=== PATIENT | female | born 1965 | race African-American/Black ===

== ENCOUNTER 2024-07-23 08:44 | Emergency (ER) | payer MEDICAID, SELFPAY ==
--- NOTE | 2024-07-23 09:09 | ED.NAVMDI1 ---
HPI - Nausea/Vomiting/Diarrhea General Chief complaint: Nausea/Vomiting/Diarrhea Stated complaint: VOMITTING FEVER Time Seen by Provider: 07/23/24 08:54 History of Present Illness HPI Narrative: Day before yesterday, the patient developed nausea, vomiting and diarrhea. She said that she is unable to keep anything down. She complains of generalized achiness, mild headache and feels hot - she is afebrile here. Her significant other has similar symptoms of similar onset. Related Data Home Medications ?Medication ?Instructions ?Recorded ?Confirmed albuterol sulfate 90 mcg/actuation 2 puff inhalation Q4H PRN 07/23/24 07/23/24 aerosol inhaler (Ventolin HFA) shortness of breath or wheezing amitriptyline 50 mg tablet 50 mg PO DAILY 07/23/24 07/23/24 atenolol 50 mg tablet 50 mg PO Q24H 07/23/24 07/23/24 clonidine HCl 0.1 mg tablet 0.1 mg PO BID 07/23/24 07/23/24 clopidogrel 75 mg tablet 75 mg PO DAILY 07/23/24 07/23/24 cyclobenzaprine 10 mg tablet 10 mg PO Q12H PRN muscle pain 07/23/24 07/23/24 doxepin 25 mg capsule 25 mg PO DAILY 07/23/24 07/23/24 ergocalciferol (vitamin D2) 1,250 1,250 mcg PO DAILY 07/23/24 07/23/24 mcg (50,000 unit) capsule ferrous sulfate 325 mg (65 mg 325 mg PO DAILY 07/23/24 07/23/24 iron) tablet gabapentin 300 mg capsule 300 mg PO TID 07/23/24 07/23/24 hydroxyzine pamoate 50 mg capsule 50 mg PO BEDTIME 07/23/24 07/23/24 insulin glargine 100 unit/mL (3 10 unit subcut BEDTIME 07/23/24 07/23/24 mL) subcutaneous pen (Lantus Solostar U-100 Insulin) insulin lispro 100 unit/mL 1 sliding scale dose subcut BID 07/23/24 07/23/24 subcutaneous pen (Humalog KwikPen (U-100) Insulin) lorazepam 0.5 mg tablet 0.5 mg PO DAILY 07/23/24 07/23/24 losartan 100 mg tablet 100 mg PO DAILY 07/23/24 07/23/24 pantoprazole 20 mg tablet,delayed 20 mg PO DAILY 07/23/24 07/23/24 release Previous Rx's ?Medication ?Instructions ?Recorded ondansetron 4 mg disintegrating 4 mg PO Q6H PRN nausea and 07/23/24 tablet vomiting #20 tabs Allergies Allergy/AdvReac Type Severity Reaction Status Date / Time NSAIDS (Non-Steroidal Allergy Severe Hives Verified 07/23/24 08:51 Anti-Inflamma tramadol Allergy Hives Verified 07/23/24 08:51 PFSH PFSH Social History Little interest or pleasure in doing things: not at all Feeling down, depressed, or hopeless: not at all Exam Narrative Exam Narrative: Nurses notes and vital signs reviewed and patient is not hypoxic. afebrile General: Well-appearing and in no apparent distress. Skin: Warm, dry, no pallor noted. Head: Normocephalic, atraumatic. Neck: Supple, non-tender. Eye: Pupils are equal, round and EOMI. No scleral icterus. Ears, Nose, Mouth, and Throat: Oral mucosa is dry Cardiovascular: Tachycardia. Respiratory: No accessory muscle use or respiratory distress. Lungs are clear to auscultation, no wheezing, rales or rhonchi Chest Wall: no tenderness Back: No CVA tenderness Musculoskeletal: normal ROM GI: Abdomen is soft, non-distended. Normal bowel sounds. No tenderness to palpation. No rebound, guarding, or rigidity noted. Neurological: A&O x4. No cranial nerve dysfunction observed. No truncal ataxia. Moves all extremities. Sensation intact. Psychiatric: Cooperative and interactive. Normal mood and affect. Constitutional Vital Signs, click to edit/add: Last Vital Signs Temp 99 F 07/23/24 09:16 Pulse 127 H 07/23/24 09:16 Resp 20 07/23/24 09:16 BP 143/81 H 07/23/24 09:16 Pulse Ox 100 07/23/24 09:16 O2 Del Method Room Air 07/23/24 09:16 Course Vital Signs Vital signs: Vital Signs Temperature 99 F 07/23/24 09:16 Pulse Rate 127 H 07/23/24 09:16 Respiratory Rate 20 07/23/24 09:16 Blood Pressure 143/81 H 07/23/24 09:16 Pulse Oximetry 100 07/23/24 09:16 Oxygen Delivery Method Room Air 07/23/24 09:16 Temperature 99 F 07/23/24 09:16 Pulse Rate 127 H 07/23/24 09:16 Respiratory Rate 20 07/23/24 09:16 Blood Pressure 143/81 H 07/23/24 09:16 Pulse Oximetry 100 07/23/24 09:16 Oxygen Delivery Method Room Air 07/23/24 09:16 MDM - Nausea/Vomiting/Diarrhea MDM Narrative Medical decision making narrative: The patient presents with nausea, vomiting and diarrhea with her significant other experiencing similar symptoms. She is tachycardic. Peripheral IV established and blood drawn and sent for testing. She was given a liter of normal saline IV fluid and IV Zofran. Although her presentation is consistent with gastroenteritis, which is circulating the population currently, since we establish peripheral IV access, blood was drawn and sent for testing. The patient felt better after ED treatment. Her labs were fairly unremarkable with a Glc 139 being most notable finding. She was able to tolerate a popsicle orally and was given Tylenol for headache. She continued to improve and was discharged home with a prescription for Zofran ODT tabs and recommendation maintain a clear liquid diet until her nausea and vomiting resolves. Lab Data Attestation: I reviewed the patient's lab results. Labs: Lab Results 07/23/24 Range/Units 09:10 WBC 8.5 (4.0-11.0) 10^3/uL RBC 4.64 (4.20-5.40) 10^6/uL Hgb 14.1 (12.0-16.0) g/dL Hct 42.9 (36.0-48.0) % MCV 92.5 (81.0-99.0) fL MCH 30.4 (26.7-34.0) pg MCHC 32.9 (29.9-35.2) g/dL RDW 14.5 (11.0-15.0) % Plt Count 340 (150-450) 10^3/uL MPV 10.1 (9.5-13.5) fL Neut % (Auto) 66.6 (43.0-75.0) % Lymph % (Auto) 21.9 (20.5-60.0) % [place] % (Auto) 9.0 (1.7-12.0) % Eos % (Auto) 2.1 (0.9-7.0) % Baso % (Auto) 0.2 (0.2-2.0) % Neut # (Auto) 5.6 (1.4-6.5) 10^3/uL Lymph # (Auto) 1.9 (1.2-3.8) 10^3/uL [place] # (Auto) 0.8 (0.3-0.8) 10^3/uL Eos # (Auto) 0.2 (0.0-0.7) 10^3/uL Baso # (Auto) 0.0 (0.0-0.1) 10^3/uL Abs Immat Gran (auto) 0.02 (0.00-0.03) 10^3/uL Imm/Tot Granulo (auto) 0.2 (0.0-0.5) % Sodium 140 (136-145) mmol/L Potassium 3.5 (3.5-5.1) mmol/L Chloride 105 (98-107) mmol/L Carbon Dioxide 26.5 (21.0-32.0) mmol/L Anion Gap 12.0 BUN 16.0 (7.0-18.0) mg/dL Creatinine 1.11 H (0.55-1.02) mg/dL Est GFR ( Amer) >60 (>=60 mL/min/1.73m^2) Est GFR (Non-Af Amer) 50 L (>=60 mL/min/1.73m^2) BUN/Creatinine Ratio 14.4 Glucose 139 H (74-106) mg/dL Calcium 8.1 L (8.5-10.1) mg/dL Total Bilirubin 0.5 (0.2-1.0) mg/dL AST 35 (15-37) U/L ALT 43 (14-59) U/L Alkaline Phosphatase 93 (46-116) U/L Total Protein 8.0 (6.4-8.2) g/dL Albumin 3.9 (3.4-5.0) g/dL Globulin 4.1 g/dL Albumin/Globulin Ratio 1.0 Lipase 24.0 (16.0-77.0) U/L Discharge Plan Discharge Chief Complaint: Nausea/Vomiting/Diarrhea Clinical Impression: Gastroenteritis Patient Disposition: Home, Self-Care Time of Disposition Decision: 09:59 Prescriptions / Home Meds: New ondansetron 4 mg tablet,disintegrating 4 mg PO Q6H PRN (Reason: nausea and vomiting) Qty: 20 0RF No Action albuterol sulfate [Ventolin HFA] 90 mcg/actuation HFA aerosol inhaler 2 puff INHALATION Q4H PRN (Reason: shortness of breath or wheezing) atenolol 50 mg tablet 50 mg PO Q24H amitriptyline 50 mg tablet 50 mg PO DAILY clonidine HCl 0.1 mg tablet 0.1 mg PO BID clopidogrel 75 mg tablet 75 mg PO DAILY cyclobenzaprine 10 mg tablet 10 mg PO Q12H PRN (Reason: muscle pain) doxepin 25 mg capsule 25 mg PO DAILY ergocalciferol (vitamin D2) 1,250 mcg (50,000 unit) capsule 1,250 mcg PO DAILY ferrous sulfate 325 mg (65 mg iron) tablet 325 mg PO DAILY gabapentin 300 mg capsule 300 mg PO TID hydroxyzine pamoate 50 mg capsule 50 mg PO BEDTIME insulin glargine [Lantus Solostar U-100 Insulin] 100 unit/mL (3 mL) insulin pen 10 unit SUBCUT BEDTIME insulin lispro [Humalog KwikPen Insulin] 100 unit/mL insulin pen 1 sliding scale dose SUBCUT BID lorazepam 0.5 mg tablet 0.5 mg PO DAILY losartan 100 mg tablet 100 mg PO DAILY pantoprazole 20 mg tablet,delayed release (DR/EC) 20 mg PO DAILY Print Language: Q[place] Instructions: Gastroenteritis (ED) Referrals: [facility] [Primary Care Provider] - 1 week
[2024-07-23 09:16] VITALS: BP 143/81; PULSE 127; TEMP 37.2; O2SAT 100; BMI 34.1
[2024-07-23 09:18] LABS: Basophils Percent Auto 0.2 % (0.2-2.0); Eosinophils Absolute Auto 0.2 10^3/uL (0.0-0.7); Eosinophils Percent Auto 2.1 % (0.9-7.0); Hematocrit 42.9 % (36.0-48.0); Hemoglobin 14.1 g/dL (12.0-16.0); Immature Granulocytes Abs Auto 0.02 10^3/uL (0.00-0.03); Immature Granulocytes Pct Auto 0.2 % (0.0-0.5); Lymphocytes Absolute Auto 1.9 10^3/uL (1.2-3.8); Lymphocytes Percent Auto 21.9 % (20.5-60.0); Mean Corpuscular HGB Conc 32.9 g/dL (29.9-35.2); Mean Corpuscular Hemoglobin 30.4 pg (26.7-34.0); Mean Corpuscular Volume 92.5 fL (81.0-99.0); Mean Platelet Volume 10.1 fL (9.5-13.5); Monocytes Absolute Auto 0.8 10^3/uL (0.3-0.8); Neutrophils Absolute Auto 5.6 10^3/uL (1.4-6.5); Neutrophils Percent Auto 66.6 % (43.0-75.0); Platelet Count 340 10^3/uL (150-450); Red Blood Count 4.64 10^6/uL (4.20-5.40); Red Cell Distribution Width 14.5 % (11.0-15.0); White Blood Count 8.5 10^3/uL (4.0-11.0)
[2024-07-23] MEDS: 0.9 % SODIUM CHLORIDE 1,000 ML 999 ML IV (09:23)
[2024-07-23] MEDS: ONDANSETRON PF 4 MG/2 ML VIAL IV (09:23)
[2024-07-23 09:36] LABS: Alanine Aminotransferase 43 U/L (14-59); Albumin Level 3.9 g/dL (3.4-5.0); Alkaline Phosphatase 93 U/L (46-116); Aspartate Amino Transferase 35 U/L (15-37); BUN Creatinine Ratio 14.4; Bilirubin Total 0.5 mg/dL (0.2-1.0); Calcium 8.1 mg/dL (8.5-10.1); Carbon Dioxide 26.5 mmol/L (21.0-32.0); Chloride 105 mmol/L (98-107); Estimated GFR (African America >60 (>=60 mL/min/1.73m^2); Estimated GFR (Non-African Ame 50 (>=60 mL/min/1.73m^2); Globulin 4.1 g/dL; Glucose 139 mg/dL (74-106); Potassium 3.5 mmol/L (3.5-5.1); Sodium 140 mmol/L (136-145)
[2024-07-23] MEDS: ACETAMINOPHEN 500 MG TABLET 1000 MG PO (10:05)
[2024-07-23 10:17] VITALS: BP 110/70; PULSE 99; O2SAT 99
== END 2024-07-23 10:19 | disposition home or self-care (01) ==
PROVIDERS: Emergency Provider Emergency Medicine
DX: K52.9 Noninfective gastroenteritis and colitis, unspecified (principal); R51.9 Headache, unspecified
CPT/HCPCS: 36415; 80053; 83690; 85025; 96361; 96374; 99284; J2405

== ENCOUNTER 2024-07-29 06:43 | Emergency (ER) | payer MEDICAID, SELFPAY ==
[2024-07-29] VITALS (11 sets, daily range): BP systolic 136–177; BP diastolic 73–94; PULSE 92; TEMP 36.9; O2SAT 99–100; BMI 34.3
--- OUTSIDE RECORDS SUMMARY | 2024-07-29 06:49 | XMS_ITS | CCD ---
Author Organization [facility] Care Team Providers Care Maintenance Clerk Name Role Phone SELF, REFERRED Unavailable Unavailable SELF, REFERRED Unavailable Unavailable ALTOROK, NEZAM I Unavailable Unavailable ALTOROK, NEZAM I Unavailable Unavailable [facility], Services Primary Care Provider Kassandra Klein Attending Provider [phone] NO FAMILY, PHYSICIAN Primary Care Provider Unava ilable Kassandra Klein Primary Care Provider XOCHITL LIANG Admitting Unavailable AZUL, XOCHITL Consulting Unavailable KASSANDRA KLEIN Referring Unavailable HIGHLANDER, XOCHITL Attending Unavailable HIGHLANDER, XOCHITL Attending Unavailable HIGHLANDER, XOCHITL Admitting Unavailable BOBSIKASSANDRA Nunez Primary Care Unavailable DR LOVE MENDENHALL Consulting Unavailable AZUL, XOCHITL Consulting Unavailable JULI WEISS Consulting Unavailable LAUREANO GALEANA Consulting Unavailable SUZY NOONAN Consulting Unavailable AZUL, XOCHITL Admitting Unavailable HIGHLANDER, XOCHITL Attending Unavailable HIGHLANDER, XOCHITL Attending Unavailable HIGHLANDER, XOCHITL Admitting Unavailable CALE SHELLEY Consulting Unavailable SPASIC, KASSANDRA Primary Care Unavailable DO Dwight Irwin Emergency Provider [phone] [facility] Primary Care Provider Phillip ASSISTANT PROFESSOR NURSE EDUCATION-C Kassandra Spring Attending Provider [phone] [facility] Primary Care Prov ider ELBERT Figueroa Emergency Provider [facility] Primary Care Provider Phillip ASSISTANT PROFESSOR NURSE EDUCATION-C Kassandra Spring Attending Provider Chintan Jackman Primary Care Provider [phone] Spasic, Kassandra E Unavailable [facility] Services Primary Care Provider Spasic, ASSISTANT PROFESSOR NURSE EDUCATION-C Kassandra E Attending Provider [facility] Primary Care Provider Spasic, ASSISTANT PROFESSOR NURSE EDUCATION-C Kassandra E Attending Provider MD Huey Bliss Attending Provider [facility] Primary Care Provider [phone] Spasic, ASSISTANT PROFESSOR NURSE EDUCATION-C Kassandra E Attending Provider [facility] Primary Care Prov ider Spasic, ASSISTANT PROFESSOR NURSE EDUCATION-C Kassandra E Attending Provider Spasic, ASSISTANT PROFESSOR NURSE EDUCATION-C Kassandra E Attending Provider [facility] Primary Care Prov ider KEITH Umana Emergency Provider Spasic, ASSISTANT PROFESSOR NURSE EDUCATION-C Kassandra E Primary Care Provider MD Rishi Abel Jr Emergency Provider Anders Umana Admitting Unavailable Anders Umana Attending Unavailable Spasic, Kassandra E Primary Care Unavailable Rishi Abel Jr Admitting Unavailable Rishi Abel Jr Attending Unavailable Spasic, Kassandra E Primary Care Unavailable Spasic, Kassandra E Attending Unavailable Spasic, Kassandra E Admitting [facility]available [facility] Primary Care Unavaila ble Spasic, Kassandra E Attending Unavailable Spasic, Kassandra E Admitting Unavailable [facility] Primary Care Unavaila ble Spasic, Kassandra E Admitting Unavailable [facility] Primary Care U navailable Spasic, Kassandra E Attending Unavailable Spasic, Kassandra E Admitting Unavailable [facility] Primary Care U navailable Spasic, Kassandra E Attending Unavailable Spasic, Kassandra E Admitting Unavailable [facility] Primary Care U navailable Spasic, Kassandra E Attending Unavailable CHINTAN JACKMAN Primary Care Unavailable GENERIC PROVIDER, NO ASSIGNED PCP Primary Care Unavailable PETER SUE Attending Unavailable Spasic ASSISTANT PROFESSOR NURSE EDUCATIONKassandra Unavailable Spasi Kassandra KONG Primary Care Provider MAYRA PAM Referring Unavailable AL TURK, ISSAM A Primary Care Unavailable PAM WANG Attending Unavailable ALANYEISON BAILON Referring Unavailable AL TURK, ISSAM A Primary Care Unavailable AL TURK, ISSAM A Primary Care Unavailable Generic Provider MD, No Assigned Pcp Primary Car e Provider Unavailable Unavailable Primary Care Provider Unavailmario e TONY SINCLAIR Referring Unavailable Unavailable Unavailable Unavailable Allergies Allergy Classification Reported Allergen(s) Allergy Type Date of Onset Reaction(s) Facility (18 sources) ibuprofen; Translations: [IBUPROFEN] Drug Allergy 3 [facility], [facility] Repository (2 sources) predniSONE; Translations: [PREDNISONE] Drug Allergy 5 [facility] Repository (18 sources) traMADol; Translations: [TRAMADOL] Drug Allergy 3 [facility], Seizure [facility] Repository (17 sources) Ketorolac; Translations: [ketorolac] Drug Allergy 1 [facility] (17 sources) Lisinopril; Translations: [lisinopril] Drug Allergy 1 [facility] (15 sources) NSAIDS (Non-Steroidal Anti-Inflamma; Translations: [NSAIDS (Non-Steroidal Anti-Inflamma] Allergy to substance 1 [facility] (3 sources) NSAIDs; Translations: [NSAIDS (NON-STEROIDAL ANTI-INFLAMMATO RY DRUG)] Drug allergy (disorder) 4 [facility] Repository (2 sources) predniSONE Drug Allergy [facility] Repository (2 sources) traMADol Drug Allergy [facility] Repository (16 sources) Aspirin; Translations: [aspirin] Drug Allergy 2 [facility] (3 sources) Ibuprofen Drug Allergy 3 Itching, [facility] Work Phone: (6 sources) Naproxen; Translations: [NAPROXEN] Drug Allergy 3 Itching [facility] Work Phone: (6 sources) traMADol Drug Allergy 3 Other: See Comments, Hives, Seizure, Unknown [facility] Work Phone: (1 source) Ibuprofen Drug Allergy 4 [facility] Repository (1 source) traMADol Drug Allergy 4 [facility] Repository (1 source) Non-steroidal anti-inflammato ry agent Drug Allergy 4 [facility] Work Phone: (1 source) predniSONE Drug Allergy 4 [facility] Work Phone: Medications Current Medications Medication Drug Class(es) Dates Sig (Normalized) Sig (Original) acetaminophen 325 mg oral tablet (3 sources) Start: 05-04-2024 End: 05-11-2024 take 325-650 mg by mouth every four hours as needed acetaminophen (TYLENOL) 325 mg tablet Take 1-2 tablets by mouth every 4 hours as needed for pain for up to 7 days. 30 tablet 05/04/2024 05/11/2024 Active acetaminophen 325 mg / HYDROcodone bitartrate 5 mg oral tablet (20 sources) Opioid Agonist Start: 01-29-2024 take 1 tablet by mouth every six hours Hydrocodone-Acetami nophen Active 1 TAB PO Q6H 10 3 January 29, 2024 Start: 04-20-2021 End: 05-27-2021 take 1 tablet by mouth every six hours Hydrocodone-Acetaminophen Discontinued 1 TAB PO Q6H 12 April 20, 2021 May 27, 2021 2:28pm Start: 06-07-2020 End: 08-20-2020 take 1 tablet by mouth every six hours Hydrocodone-Acetaminophen ([place]) 5-325 mg tablet Discontinued 1 TAB PO Q6H 10 July 22, 2020 August 20, 2020 12:15pm Start: 11-19-2019 End: 07-22-2020 take 1 tablet by mouth three times daily Hydrocodone-Acetaminophen Discontinued 1 TAB PO Three times daily November 19, 2019 12:00am July 22, 2020 3:33pm Start: 11-19-2019 End: 11-19-2019 Hydrocodone-Acetaminophen Di scontinued TABLET November 19, 2019 12:00am November 19, 2019 4:38pm Start: 07-16-2019 End: 10-06-2019 take 1 tablet by mouth every four to six hours Hydrocodone-Acetaminophen (Vicodin Hp) 10-300 mg Tablet Discontinued 1 TAB PO EVERY 4-6 HOURS July 16, 2019 1:00am October 06, 2019 2:43pm Start: 05-11-2019 take 1 tablet by shalini th every twelve hours as needed HYDROcodone-acetaminophen (NORCO) 5-325 mg per tablet Take 1 tablet by mouth twice daily as needed. 0 05/11/2019 Active Start: 01-07-2019 End: 07-16-2019 take 1 tablet by mouth every four to six hours Hydrocodone-Acetaminophen ([place]) 5-325 mg tablet Discontinued 1 TAB PO EVERY 4-6 HOURS 10 3 January 07, 2019 July 16, 2019 9:15am Start: 08-27-2017 End: 01-11-2018 take 1 tablet by mouth every four to six hours Hydrocodone-Acetaminophen ([place]) 5-325 mg tablet Discontinued 1 TAB PO EVERY 4-6 HOURS 14 August 27, 2017 January 11, 2018 5:04pm Start: 03-18-2017 End: 04-30-2017 Hydrocodone-Acetaminophen (N or[place]) 5-325 mg tablet Discontinued 1 TAB PO every 6 to 8 hours 7 March 18, 2017 April 30, 2017 9:11am Comment on above: Take 1 tablet by shalini th twice daily as needed. Albuterol Sulfate (20 sources) beta2-Adrenergic Agonist Start: 08-14-2019 Albuterol Sulfate (Ventolin Hfa) 90 mcg/actuation HFA aerosol inhaler Active 2 INH INHALATION every 6 to 8 hours 8 August 14, 2019 10:21am Start: 08-14-2019 Albuterol Sulf ate (Ventolin Hfa) 90 mcg/actuation HFA aerosol inhaler Active 2 INH INHALATION every 6 to 8 hours 8 August 14, 2019 1:00am Start: 07-27-2017 End: 07-16-2019 take 1 puff(s) by inhalation every six hours Albuterol Sulfate Discontinued 2 PUFF INHALATION Q6H July 27, 2017 10:15pm July 16, 2019 8:15am Start: 07-27-2017 End: 07-16-2019 take 1 puff(s) by inhalation every six hours Albuterol Sulfate Discontinued 2 PUFF INHALATION Q6H July 27, 2017 12:00am July 16, 2019 8:15am Start: 07-27-2017 End: 07-16-2019 take 1 puff(s) by inhalation every six hours Albuterol Sulfate Discontinued 2 PUFF INHALATION Q6H July 27, 2017 1:00am July 16, 2019 9:15am take 2.5 mg by inhal ation every six hours as needed albuterol (PROVENTIL) 2.5 mg /3 mL (0.083 %) nebulizer solution Inhale 2.5 mg as instructed every 6 hours as needed. Active ALBUTEROL INHALA TION Indications: Sarcoidosis Inhale as instructed. Active ALBUTEROL INHALA TION Indications: Sarcoidosis Inhale as instructed. 0 Active Comment on above: Inhale as instructed . Inhale 2.5 mg as ins tructed every 6 hours as needed. amLODIPine 10 mg oral tablet (19 sources) Dihydropyridine Calcium Channel Lilia Start: 05-11-20 End: 11-15-19 take 1 tablet by mouth once daily amLODIPine (NORVASC) 10 mg tablet Take 10 mg by mouth once daily. 1 05/11/2019 Active Comment on above: Take 10 mg by mouth once daily. amoxicillin 875 mg / clavulanate 125 mg oral tablet (1 source) Penicillin-class Antibacterial Start: 03-23-20 End: 03-30-20 24 take 1 tablet by mouth every twelve hours amoxicillin-pot clavulanate (Augmentin) 875-125 mg tablet Indications: Pneumonia due to infectious organism, unspecified laterality, unspecified part of lung Take 1 tablet by mouth every 12 hours for 7 days. 14 tablet 03/23/2024 03/30/2024 Active ARIPiprazole 10 mg oral tablet (13 sources) Atypical Antipsychotic Start: 11-15-19 take 10 mg by mouth once daily Aripiprazole Active 10 MG PO Daily November 14, 2022 12:00am Comment on above: Take 10 mg by mouth once daily. atenolol 50 mg oral tablet (20 sources) beta-Adrenergic Lilia Start: 11-15-19 take 50 mg by mouth once daily Atenolol Active 50 MG PO Daily November 14, 2022 12:00am Start: 03-18-2017 End: 11-09-2019 take 50 mg by mouth once daily Atenolol Discontinued 5 0 MG PO Daily March 18, 2017 12:00am November 09, 2019 8:21pm Comment on above: Take 50 mg by mouth once daily. azithromycin 250 mg oral tablet (15 sources) Macrolide Antimicrobial Start: 03-24-20 take 1 tablet by mouth once daily azithromycin (Zithromax) 250 mg tablet Indications: Pneumonia due to infectious organism, unspecified laterality, unspecified part of lung Take 1 tablet (250 mg) by mouth once daily. Take 1 pill once a day Do not fill before March 24, 2024. 4 tablet 03/24/2024 Active Start: 04-20-2018 End: 04-30-2018 take 2 tablets by mouth once daily, then take 1 tablet by mouth once daily Azithromycin (Zithromax Z-Reno) 250 mg Tablet Discontinued 250 MG PO Daily 6 5 April 20, 2018 12:00am April 30, 2018 2:33pm two pills first day, one pill daily for 4 days Budesonide-Formoterol (20 sources) Corticosteroid, beta2-Adrenergic Agonist Start: 11-11-2019 take 1 puff(s) by inhalation twice daily Budesonide-Formoterol Active 2 PUFF INHALATION Twice daily November 11, 2019 11:23am Start: 11-11-2019 take 1 puff(s) by in halation twice daily Budesonide-Formoterol Active 2 PUFF INHALATION Twice daily November 10, 2019 11:00pm Start: 11-11-2019 take 1 puff(s) by in halation twice daily Budesonide-Formoterol Active 2 PUFF INHALATION Twice daily November 11, 2019 12:00am Start: 07-27-2017 End: 07-16-2019 take 1 puff(s) by inhalation twice daily Budesonide-Formoterol (Symbicort) 160-4.5 mcg/actuation Hfa Aerosol Inhaler Discontinued 2 PUFF INHALATION Twice daily July 27, 2017 1:00am July 16, 2019 9:15am BUDESONIDE/FORMOTEROL FUMARA TE (SYMBICORT INHALATION) (5 sources) BUDESONIDE/FORMO TEROL FUMARATE (SYMBICORT INHALATION) Indications: Sarcoidosis Inhale as instructed. Active BUDESONIDE/FORMO TEROL FUMARATE (SYMBICORT INHALATION) Indications: Sarcoidosis Inhale as instructed. 0 Active Comment on above: Inhale as instructed . Calcium Carbonate-Vitamin D3 180-5,000 mg-unit tab (5 sources) Calcium Carbonat e-Vitamin D3 180-5,000 mg-unit tab Indications: Sarcoidosis Take by mouth. Active Calcium Carbonat e-Vitamin D3 180-5,000 mg-unit tab Indications: Sarcoidosis Take by mouth. 0 Active Comment on above: Take by mouth. cetirizine hydrochloride 10 mg oral tablet (8 sources) Histamine-1 Receptor Antagonist Start: 11-15-19 take 10 mg by mouth once daily Cetirizine Active 10 MG PO Daily November 14, 2022 12:00am cholecalciferol 2000 unt oral tablet (14 sources) Vitamin D Start: 07-16-19 take 1 tablet by mouth once daily Cholecalciferol (Vitamin D3) (Vitamin D3) 2,000 unit Tablet Active 2000 UNIT PO Daily July 16, 2019 8:16am Start: 07-16-2019 End: 11-14-2022 Cholecalciferol (Vitamin D3) (Vitamin D3) 2,000 unit Tablet Discontinued 5000 UNIT PO every week July 16, 2019 1:00am November 14, 2022 8:07am cloNIDine hydrochloride 0.1 mg oral tablet (8 sources) Central alpha-2 Adrenergic Agonist Start: 11-14-2022 take 0.1 mg by mouth once daily Clonidine Hcl Active 0.1 MG PO Daily November 14, 2022 12:00am dexamethasone 4 mg oral tablet (20 sources) Corticosteroid Start: 11-11-2019 take 4 mg by mouth once daily Dexamethasone Active 4 MG PO Daily November 11, 2019 11:23am Start: 11-11-2019 End: 03-19-2022 take 4 mg by mouth twice daily Dexamethasone Discontin ued 4 MG PO Twice daily November 11, 2019 12:00am March 19, 2022 10:32am Start: 04-30-2018 End: 07-16-2019 take 4 mg by mouth twice daily Dexamethasone Discontin ued 4 MG PO Twice daily 0 June 07, 2018 6:56pm July 16, 2019 9:15am See tapering instructions noted separately Start: 07-27-2017 End: 08-27-2017 take 4 mg by mouth every twelve hours Dexamethasone Discontinued 4 MG PO Q12H July 27, 2017 1:00am August 27, 2017 5:37pm Comment on above: Take 4 mg by mouth t wice daily with meals. empagliflozin 10 mg oral tablet (5 sources) Sodium-Glucose Cotransporter 2 Inhibitor take 1 tablet by mouth once daily at breakfast empagliflozin (JARDIANCE) 10 mg tablet Take 10 mg by mouth daily with breakfast. Active Comment on above: Take 10 mg by mouth daily with breakfast. ergocalciferol 1.25 mg oral capsule (13 sources) Provitamin D2 Compound Start: 019 take 1 capsule by mouth every week ergocalciferol 50,000 unit capsule (VITAMIN D2, DRISDOL) TAKE 1 CAPSULE BY MOUTH ONE TIME PER WEEK 3 05/11/2019 Active Comment on above: TAKE 1 CAPSULE BY [facility] ONE TIME PER WEEK ferrous sulfate 325 mg oral tablet (19 sources) Start: 020 take 325 mg by mouth once daily Ferrous Sulfate Active 325 MG PO Daily July 16, 2019 1:00am Start: 05-11-2019 take 1 tablet by shalini once daily ferrous sulfate 325 mg (65 mg iron) tablet Take 1 tablet by mouth once daily. 2 05/11/2019 Active Comment on above: Take 1 tablet by shalini once daily. fluticasone / salmeterol (1 source) Corticosteroid, beta2-Adrenergic Agonist Start: 4 End: 4 take 1 puff(s) by mouth twice daily fluticasone propion-salmeteroL (Advair Diskus) 100-50 mcg/dose diskus inhaler Indications: Pneumonia due to infectious organism, unspecified laterality, unspecified part of lung Inhale 1 puff 2 times a day for 10 days. Rinse mouth with water after use to reduce aftertaste and incidence of candidiasis. Do not swallow. 20 each 03/23/2024 04/02/2024 Active gabapentin 300 mg oral capsule (19 sources) Anti-epileptic Agent Start: 3 End: 3 take 2 capsules by mouth twice daily gabapentin (NEURONTIN) 300 mg capsule Indications: Sarcoidosis , Polyarthralgia Take 2 capsules by mouth twice daily for 90 days. 120 capsule 2 07/19/2022 Active Start: 08-21-2020 End: 11-14-2022 take 300 mg by mouth three times daily Gabapentin Discontinued 300 MG PO Three times daily August 21, 2020 1:00am November 14, 2022 8:09am Comment on above: Take 2 capsules by m outh twice daily for 90 days. Take 300 mg by mouth three times daily. LORazepam 0.5 mg oral tablet (20 sources) Benzodiazepine Start: 07-22-2020 take 0.5 mg by mouth once daily Lorazepam Active 0.5 MG PO Daily July 22, 2020 1:00am 0.5 mg orally Start: 07-16-2019 End: 11-11-2019 take 0.5 mg by mouth twice daily Lorazepam Discontinued 0.5 MG PO Twice daily July 16, 2019 1:00am November 11, 2019 1:32pm Start: 05-11-2019 take 1 tablet by shalini th every twelve hours as needed LORazepam (ATIVAN) 0.5 mg tab Take 0.5 mg by mouth twice daily as needed. 0 05/11/2019 Active Start: 07-24-2018 End: 10-17-2018 take 1 tablet by mouth every eight hours Lorazepam (Ativan) 0.5 mg tablet Discontinued 0.5 MG PO Q8H 5 3 July 24, 2018 1:00am October 17, 2018 8:00am Comment on above: Take 0.5 mg by mouth twice daily as needed. losartan potassium 50 mg oral tablet (13 sources) Angiotensin 2 Receptor Lilia Start: 11-14-2022 take 50 mg by mouth once daily Losartan Active 50 MG PO Daily November 14, 2022 12:00am Comment on above: Take 50 mg by mouth once daily. tiZANidine 4 mg oral tablet (2 sources) Central alpha-2 Adrenergic Agonist Start: 12-22-2023 take 4 mg by mouth three times daily Tizanidine Active 4 MG PO Three times daily December 22, 2023 12:00am Completed/Discontinued Medications Medication Drug Class(es) Dates Sig (Normalized) Sig (Original) acetaminophen 325 mg / oxyCODONE hydrochloride 5 mg oral tablet (20 sources) Opioid Agonist Start: 05-29-2021 End: 12-22-2021 take 1 tablet by mouth every six hours Oxycodone-Acetamino phen (Percocet) 5-325 mg tablet Discontinued 1 TAB PO Q6H 8 2 May 29, 2021 December 22, 2021 6:20am Start: 08-17-2018 End: 08-20-2018 take 1 tablet by mouth every four to six hours Oxycodone-Acetaminophen (Percocet) 5-325 mg tablet Discontinued 1 TAB PO EVERY 4-6 HOURS 10 August 17, 2018 August 20, 2018 1:01am Start: 06-07-2018 End: 07-24-2018 take 1 tablet by mouth every four to six hours Oxycodone-Acetaminophen (Percocet) 2.5-325 mg tablet Discontinued 1 TAB PO EVERY 4-6 HOURS 20 June 07, 2018 July 24, 2018 1:11pm Start: 05-02-2018 End: 06-05-2018 take 2 tablets by mouth every eight hours Oxycodone-Acetaminophen Discontinued 2 TAB PO Q8H 16 11May 02, 2018 12:00am June 05, 2018 2:51pm Start: 01-11-2018 End: 04-20-2018 take 1 tablet by mouth every four to six hours Oxycodone-Acetaminophen (Percocet) 5-325 mg tablet Discontinued 1 - 2 TAB PO EVERY 4-6 HOURS January 11, 2018 April 20, 2018 11:17am aluminum hydroxide 40 mg/ml / magnesium hydroxide 40 mg/ml / simethicone 4 mg/ml oral suspension (14 sources) Start: 06-07-2018 End: 10-17-2018 take 1 mL by mouth four times daily Alum-Mag Hydroxide-Simeth (Mag-Al Plus) 200-200-20 mg/5 mL Suspension Discontinued 30 ML PO Four times daily 150 June 07, 2018 1:00am October 17, 2018 8:00am azithromycin 500 mg in dextrose 5% 250 mL IV (1 source) Start: 03-23-2024 End: 03-23-2024 500 mg, intravenous, at 250 mL/hr, Administer over 60 Minutes, Once, On Fri03/23/24 at 1845, For 1 dose, Suspected Indication (Select all that apply): Pneumonia, Type of Therapy: Empiric, Indications: Pneumonia bacitracin 0.5 unt/mg topical ointment (14 sources) Start: 01-17-2019 End: 07-16-2019 Bacitracin Discontinued 1 APPLIC TOPICAL Q12H January 17, 2019 12:00am July 16, 2019 9:15am benzonatate 100 mg oral capsule (15 sources) Non-narcotic Antitussive Start: 03-23-2024 End: 03-23-2024 take 100 mg by mouth once 100 mg, oral, Once, On Fri03/23/24 at 1755, For 1 dose, Do not crush or chew. Start: 08-14-2019 End: 11-09-2019 take 1 capsule by mouth three times daily Benzonatate (Tessalon Perles) 100 mg capsule Discontinued 100 MG PO Three times daily August 14, 2019 1:00am November 09, 2019 8:22pm 12 hr carBAMazepine 100 mg extended release oral tablet (14 sources) Mood Stabilizer Start: 07-27-2017 End: 04-20-2018 take 1 tablet by mouth every twelve hours Carbamazepine (Tegretol Xr) 100 mg Tablet Extended Release 12 Hr Discontinued 100 MG PO Q12H July 27, 2017 1:00am April 20, 2018 11:17am cefTRIAXone 2000 mg injection (1 source) Cephalosporin Antibacterial Start: 03-23-2024 End: 03-23-2024 2 g, intravenous, at 100 mL/hr, Administer over 30 Minutes, Once, On Fri03/23/24 at 1845, For 1 dose, premix bag, Suspected Indication (Select all that apply): Pneumonia, Type of Therapy: Empiric, Indications: Pneumonia cephalexin 500 mg oral capsule (20 sources) Cephalosporin Antibacterial Start: 10-06-2019 End: 11-09-2019 take 2 capsules by mouth twice daily Cephalexin (Keflex) 500 mg capsule Discontinued 1000 MG PO Twice daily 40 October 06, 2019 12:00am November 09, 2019 8:22pm Start: 01-17-2019 End: 07-16-2019 take 500 mg by mouth twice daily Cephalexin Discontinued 500 MG PO Twice daily 20 January 17, 2019 12:00am July 16, 2019 9:15am codeine phosphate 2 mg/ml / promethazine hydrochloride 1.25 mg/ml oral solution (14 sources) Opioid Agonist, Phenothiazine Start: 04-20-2018 End: 06-05-2018 take 1 mL by mouth every four hours Promethazine-Codeine Discontinued 5 ML PO Q4H 120 3 April 20, 2018 12:00am June 05, 2018 2:51pm cyclobenzaprine hydrochloride 10 mg oral tablet (19 sources) Muscle Relaxant Start: 04-30-2017 End: 07-02-2017 take 10 mg by mouth three times daily Cyclobenzaprine Discontinued 10 MG PO Three times daily April 30, 2017 12:00am July 02, 2017 7:17pm Comment on above: Take by mouth three times daily. diclofenac sodium 0.01 mg/mg topical gel (13 sources) Nonsteroidal Anti-inflammatory Drug Start: 03-19-2022 End: 11-14-2022 apply 4 g topically four times daily Diclofenac Sodium Discontinued 4 GM TOPICAL Four times daily March 19, 2022 12:00am November 14, 2022 8:09am apply to single knee, ankle, foot; for foot includes sole/toes/top of foot dicyclomine hydrochloride 20 mg oral tablet (14 sources) Anticholinergic Start: 06-10-2018 End: 10-17-2018 take 20 mg by mouth three times daily Dicyclomine Discontinued 20 MG PO Three times daily June 10, 2018 1:00am October 17, 2018 8:00am docusate sodium 100 mg oral capsule (14 sources) Start: 08-17-2018 End: 09-14-2018 take 1 capsule by mouth once daily Docusate Sodium (Colace) 100 mg capsule Discontinued 100 MG PO Daily August 17, 2018 1:00am September 14, 2018 1:35pm doxepin hydrochloride 10 mg oral capsule (13 sources) Tricyclic Antidepressant Start: 05-27-2021 End: 11-14-2022 take 10 mg by mouth once daily Doxepin Discontinued 10 MG PO Daily May 27, 2021 1:00am November 14, 2022 8:09am doxycycline hyclate 100 mg oral tablet (20 sources) Tetracycline-class Drug Start: 08-14-2019 End: 10-06-2019 take 100 mg by mouth twice daily Doxycycline Hyclate Discontinued 100 MG PO Twice daily 10 01August 14, 2019 1:00am October 06, 2019 2:43pm Start: 01-07-2019 End: 07-16-2019 take 100 mg by mouth twice daily Doxycycline Hyclate Discontinued 100 MG PO Twice daily 18 04January 07, 2019 12:00am July 16, 2019 9:15am DULoxetine 30 mg delayed release oral capsule (14 sources) Serotonin and Norepinephrine Reuptake Inhibitor Start: 03-18-2017 End: 07-02-2017 take 30 mg by mouth once daily Duloxetine Discontinued 30 MG PO Daily March 18, 2017 12:00am July 02, 2017 7:18pm famotidine 40 mg oral tablet (14 sources) Histamine-2 Receptor Antagonist Start: 11-11-2019 End: 07-22-2020 take 40 mg by mouth once daily at bedtime Famotidine Discontinued 40 MG PO Daily at bedtime November 11, 2019 12:00am July 22, 2020 3:32pm 1 ml fentaNYL 0.05 mg/ml injection (1 source) Opioid Agonist Start: 03-23-2024 End: 03-23-2024 50 mcg, intravenous, Once, On Fri03/23/24 at 2200, For 1 dose FLUoxetine 20 mg oral capsule (20 sources) Serotonin Reuptake Inhibitor Start: 07-27-2017 End: 07-16-2019 take 1 capsule by mouth once daily Fluoxetine (Prozac) 20 mg Capsule Discontinued 20 MG PO Daily July 27, 2017 1:00am July 16, 2019 9:15am Start: 03-18-2017 End: 07-02-2017 take 20 mg by mouth once daily Fluoxetine Discontinued 20 MG PO Daily March 18, 2017 12:00am July 02, 2017 7:17pm fluticasone furoate 0.0275 mg/actuat metered dose nasal spray (14 sources) Corticosteroid Start: 11-19-2019 End: 05-27-2021 Fluticasone Furoate Discontinued 1 SPRAY INTRANASAL Daily November 19, 2019 12:00am May 27, 2021 2:28pm furosemide 40 mg oral tablet (13 sources) Loop Diuretic Start: 12-22-2021 End: 11-14-2022 take 1 tablet by mouth once daily Furosemide (Lasix) 40 mg tablet Discontinued 40 MG PO Daily December 22, 2021 12:00am November 14, 2022 8:09am glipiZIDE 5 mg oral tablet (13 sources) Sulfonylurea Start: 05-27-2021 End: 11-14-2022 take 5 mg by mouth once daily Glipizide Discontinued 5 MG PO Daily May 27, 2021 1:00am November 14, 2022 8:09am hydroCHLOROthiazide 12.5 mg / lisinopril 20 mg oral tablet (14 sources) Thiazide Diuretic, Angiotensin Converting Enzyme Inhibitor Start: 03-18-2017 End: 04-30-2018 take 2 tablets by mouth once daily Lisinopril-Hydr ochlorothiazide Discontinued 2 TAB PO Daily March 18, 2017 12:00am April 30, 2018 2:33pm insulin detemir (20 sources) Insulin Analog Start: 05-28-2021 End: 11-14-2022 inject 30 [IU] by subcutaneous injection once daily in the morning Insulin Detemir U-100 Discontinued 30 UNIT SUBCUT Every morning May 28, 2021 1:00am November 14, 2022 8:10am Start: 05-28-2021 inject 30 [IU] by schwarz bcutaneous injection once daily in the morning Insulin Detemir U-100 Active 30 UNIT SUBCUT Every morning May 28, 2021 1:00am Start: 11-20-2019 End: 05-28-2021 Insulin Detemir U-100 (Levem ir Flextouch U100 Insulin) 100 unit/mL (3 mL) Insulin Pen Discontinued 20 UNITS SUBCUT Every morning 12 27November 20, 2019 12:00am May 28, 2021 11:29am Start: 06-07-2018 End: 10-05-2018 Insulin Detemir U-100 (Levem ir Flextouch U100 Insulin) 100 unit/mL (3 mL) Insulin Pen Discontinued 20 UNIT SUBCUT Daily 12 27June 07, 2018 1:00am October 05, 2018 12:02am 3 ml insulin aspart, human 100 unt/ml pen injector (14 sources) Insulin Analog Start: 06-07-2018 End: 07-16-2019 inject 4 [IU] by subcutaneous injection at mealtime Insulin Aspart U-100 (Novolog Flexpen U-100 Insulin) 100 unit/mL Insulin Pen Discontinued 0 UNITS SUBCUT Before meals and at bedtime 11 26June 07, 2018 1:00am July 16, 2019 9:15am 4 units with each meal iohexol (OMNIPaque) 350 mg iodine/mL solution 75 mL (1 source) Start: 03-23-2024 End: 03-23-2024 75 mL, intravenous, Once in imaging, Starting on Fri03/23/24 at 2228, For 1 dose 10 ml lidocaine hydrochloride 10 mg/ml injection (4 sources) Antiarrhythmic, Amide Local Anesthetic Start: 05-10-2024 End: 05-10-2024 lidocaine (PF) 10 mg/mL (1 %) 8 mL injection (XYLOCAINE) Start: 05-10-2024 End: 05-10-2024 8 mL, Injection - FOR ORTHO USE ONLY, ONCE, 1 dose, Starting on Fri05/10/24 at 0951, Until Fri05/10/24 at 0951 Start: 12-22-2023 apply 1 dose topical ly every twenty-four hours Lidocaine Active 1 PATCH TOPICAL Q24H December 22, 2023 12:00am leave on most painful area for up to 12 hrs lisinopril 20 mg oral tablet (14 sources) Angiotensin Converting Enzyme Inhibitor Start: 11-20-2019 End: 08-21-2020 take 20 mg by mouth once daily Lisinopril Discontinued 20 MG PO Daily 90 90 November 20, 2019 12:00am August 21, 2020 10:00am loperamide hydrochloride 2 mg oral capsule (14 sources) Opioid Agonist Start: 07-28-2017 End: 08-27-2017 Loperamide (Imodium A-D) 2 mg capsule Discontinued 2 MG PO EVERY 1-2 HOURS July 28, 2017 1:00am August 27, 2017 5:37pm after each loose stool until symptoms controlled; do not exceed 16 mg total dose in 24 hrs meclizine hydrochloride 25 mg oral tablet (14 sources) Antiemetic Start: 03-18-2017 End: 04-30-2017 Meclizine Discontinued TABLET March 18, 2017 12:00am April 30, 2017 9:36am metFORMIN hydrochloride 500 mg oral tablet (20 sources) Biguanide Start: 11-09-2019 End: 08-20-2020 take 500 mg by mouth twice daily Metformin Discontinued 500 MG PO Twice daily November 09, 2019 12:00am August 20, 2020 12:16pm Start: 07-16-2019 End: 11-11-2019 take 500 mg by mouth once daily Metformin Discontinued 500 MG PO Daily July 16, 2019 1:00am November 11, 2019 1:32pm methylPREDNISolone 40 mg injection (1 source) Corticosteroid Start: 03-23-2024 End: 03-24-2024 40 mg, intravenous, Once, On Fri03/23/24 at 2350, For 1 dose metoprolol tartrate 25 mg oral tablet (14 sources) beta-Adrenergic Lilia Start: 11-11-2019 End: 12-22-2021 take 25 mg by mouth twice daily at mealtime Metoprolol Tartrate Discontinued 25 MG PO Twice daily with meals November 11, 2019 12:00am December 22, 2021 6:19am omeprazole 20 mg delayed release oral capsule (20 sources) Proton Pump Inhibitor Start: 06-07-2018 End: 09-14-2018 take 40 mg by mouth once daily Omeprazole Discontinued 40 MG PO Daily 60 June 07, 2018 1:00am September 14, 2018 1:35pm Start: 07-27-2017 End: 01-11-2018 take 20 mg by mouth once daily Omeprazole Discontinued 20 MG PO Daily July 27, 2017 1:00am January 11, 2018 5:05pm ondansetron 4 mg disintegrating oral tablet (20 sources) Serotonin-3 Receptor Antagonist Start: 08-20-2020 End: 05-27-2021 Ondansetron Discontinued 4 MG PO every 6 to 8 hours August 20, 2020 1:00am May 27, 2021 2:29pm Start: 07-21-2019 End: 10-06-2019 Ondansetron Discontinued 4 M G PO every 6 to 8 hours July 21, 2019 1:00am October 06, 2019 2:43pm Start: 07-28-2017 End: 01-11-2018 take 1 tablet by mouth every eight hours Ondansetron (Zofran Odt) 4 mg tablet,disintegrating Discontinued 4 MG PO Q8H July 28, 2017 1:00am January 11, 2018 5:05pm oxaprozin 600 mg oral tablet (14 sources) Nonsteroidal Anti-inflammatory Drug Start: 03-18-2017 End: 07-02-2017 take 600 mg by mouth once daily Oxaprozin Discontinued 600 MG PO Daily March 18, 2017 12:00am July 02, 2017 7:16pm pantoprazole 20 mg delayed release oral tablet (20 sources) Proton Pump Inhibitor Start: 06-27-2021 End: 11-14-2022 take 20 mg by mouth twice daily Pantoprazole Discontinued 20 MG PO Twice daily June 27, 2021 6:56am November 14, 2022 8:10am Start: 11-11-2019 End: 06-27-2021 take 20 mg by mouth once daily Pantoprazole Discontinu ed 20 MG PO Daily November 11, 2019 12:00am June 27, 2021 6:56am predniSONE 20 mg oral tablet (20 sources) Start: 03-19-2022 End: 11-14-2022 take 20 mg by mouth twice daily Prednisone Discontinued 20 MG PO Twice daily 10 March 19, 2022 12:00am November 14, 2022 8:10am Start: 08-20-2020 End: 05-27-2021 take 20 mg by mouth once daily at mealtime Prednisone Discontinued 20 MG PO Daily August 20, 2020 1:00am May 27, 2021 2:29pm administer with food or milk Start: 08-14-2019 End: 10-06-2019 take 50 mg by mouth once daily Prednisone Discontinued 50 MG PO Daily 5 August 14, 2019 1:00am October 06, 2019 2:43pm Start: 04-20-2018 End: 04-30-2018 take 60 mg by mouth once daily, then take 40 mg by mouth once daily, then take 20 mg by mouth once daily, then take 10 mg by mouth once daily Prednisone Discontinued 20 MG PO Daily April 20, 2018 11:17am April 30, 2018 2:33pm 60mg daily x 3 days, 40 mg daily x 3 days, 20mg daily x 3 days, 10mg daily x 3 days Start: 04-20-2018 End: 04-30-2018 take 40 mg by mouth once daily at mealtime Prednisone Discontinued 40 MG PO Daily 8 April 20, 2018 12:00am April 30, 2018 2:33pm administer with food or milk Start: 01-11-2018 End: 04-20-2018 take 60 mg by mouth once daily, then take 40 mg by mouth once daily, then take 20 mg by mouth once daily, then take 10 mg by mouth once daily Prednisone Discontinued 10 MG PO Daily 39 January 11, 2018 12:00am April 20, 2018 11:17am 60mg daily x 3 days, 40 mg daily x 3 days, 20mg daily x 3 days, 10mg daily x 3 days Start: 04-30-2017 End: 07-27-2017 take 60 mg by mouth once daily, then take 40 mg by mouth once daily, then take 20 mg by mouth once daily, then take 10 mg by mouth once daily Prednisone Discontinued 10 MG PO Daily 39 April 30, 2017 12:00am July 27, 2017 11:17pm 60mg daily x 3 days, 40 mg daily x 3 days, 20mg daily x 3 days, 10mg daily x 3 days Start: 03-18-2017 End: 04-30-2017 take 60 mg by mouth once daily at mealtime Prednisone Discontinued 60 MG PO Daily March 18, 2017 12:00am April 30, 2017 9:11am administer with food or milk promethazine hydrochloride 25 mg oral tablet (14 sources) Phenothiazine Start: 06-10-2018 End: 07-24-2018 take 25 mg by mouth every six hours Promethazine Discontinued 25 MG PO Q6H June 10, 2018 1:00am July 24, 2018 1:11pm rivaroxaban 10 mg oral tablet (13 sources) Factor Xa Inhibitor Start: 05-27-2021 End: 12-22-2021 take 1 tablet by mouth once daily Rivaroxaban (Xarelto) 10 mg tablet Discontinued 10 MG PO Daily May 27, 2021 1:00am December 22, 2021 6:19am sertraline 50 mg oral tablet (20 sources) Serotonin Reuptake Inhibitor Start: 05-27-2021 End: 11-14-2022 take 50 mg by mouth once daily Sertraline Discontinued 50 MG PO Daily May 27, 2021 1:00am November 14, 2022 8:10am Start: 11-11-2019 End: 07-22-2020 take 50 mg by mouth once daily Sertraline Discontinued 50 MG PO Daily November 11, 2019 12:00am July 22, 2020 3:33pm 1000 ml sodium chloride 9 mg/ml injection (1 source) Start: 03-23-2024 End: 03-23-2024 1,000 mL, intravenous, at 999 mL/hr, Administer over 1 Hours, Once, On Fri03/23/24 at 1755, For 1 dose sucralfate 1000 mg oral tablet (13 sources) Aluminum Complex Start: 06-27-2021 End: 11-14-2022 take 1 tablet by mouth at bedtime Sucralfate (Carafate) 1 gram tablet Discontinued 1 GM PO Before meals and at bedtime 60 June 27, 2021 1:00am November 14, 2022 8:10am sulfamethoxazole 800 mg / trimethoprim 160 mg oral tablet (20 sources) Dihydrofolate Reductase Inhibitor Antibacterial, Sulfonamide Antimicrobial Start: 10-06-2019 End: 11-09-2019 take 1 tablet by mouth twice daily Sulfamethoxazole- Trimethoprim (Bactrim Ds) 800-160 mg Tablet Discontinued 1 TAB PO Twice daily October 06, 2019 12:00am November 09, 2019 8:22pm Start: 01-17-2019 End: 07-16-2019 take 1 tablet by mouth once daily Sulfamethoxazole-Trimethoprim (Bactrim D s) 800-160 mg tablet Discontinued 1 TAB PO Daily 18 04January 17, 2019 12:00am July 16, 2019 9:15am Start: 10-17-2018 End: 12-05-2018 take 1 tablet by mouth twice daily Sulfamethoxazole-Trimethoprim (Bactrim D s) 800-160 mg tablet Discontinued 1 TAB PO Twice daily 18 04October 17, 2018 12:00am December 05, 2018 7:42pm Start: 08-17-2018 End: 09-05-2018 take 1 tablet by mouth twice daily Sulfamethoxazole-Trimethoprim (Bactrim D s) 800-160 mg tablet Discontinued 1 TAB PO Twice daily August 17, 2018 1:00am September 05, 2018 6:50pm traMADol hydrochloride 50 mg oral tablet (14 sources) Opioid Agonist Start: 07-27-2017 End: 08-27-2017 take 1 tablet by mouth every six hours Tramadol Discontinued 1 TAB PO Q6H July 27, 2017 1:00am August 27, 2017 5:37pm 1 ml triamcinolone acetonide 40 mg/ml injection (2 sources) Corticosteroid Start: 05-10-2024 End: 05-10-2024 triamcinolone acetonide 80 mg injection (KeNALog 40) Start: 05-10-2024 End: 05-10-2024 80 mg, Injection - FOR ORTHO USE ONLY, ONCE, 1 dose, Starting on Fri05/10/24 at 0951, Until Fri05/10/24 at 09 valsartan 80 mg oral tablet (14 sources) Angiotensin 2 Receptor Lilia Start: 06-07-2018 End: 09-14-2018 take 80 mg by mouth once daily Valsartan Discontinued 80 MG PO Daily June 07, 2018 1:00am September 14, 2018 1:35pm zolpidem tartrate 10 mg oral tablet (20 sources) gamma-Aminobutyric Acid-ergic Agonist Start: 11-19-2019 End: 07-22-2020 take 1 tablet by mouth once daily at bedtime Zolpidem (Ambien) 10 mg Tablet Discontinued 10 MG PO Daily at bedtime November 19, 2019 12:00am July 22, 2020 3:33pm Start: 03-18-2017 End: 07-27-2017 take 1 tablet by mouth once daily at bedtime Zolpidem Discontinued 1 TAB PO Daily at bedtime March 18, 2017 12:00am July 27, 2017 11:17pm Problems Active Problems Problem Classification Problem Date Documented Date Episodic/Chronic Abdominal pain (7 sources) Flank pain; Translations: [Unspecified abdominal pain] Onset: 4 12-22-2023 Episodic Aortic and peripheral arterial embolism or thrombosis (1 source) Atheroembolism of left lower extremity; Translations: [Atheroembolism of left lower extremity] Onset: 4 Chronic Bacterial infection; unspecified site (14 sources) Infection due to Staphylococcus aureus; Translations: [Methicillin susceptible Staphylococcus aureus infection, unspecified site] 01-17-2019 Episodic Deficiency and other anemia (1 source) Anemia, unspecified; Translations: [ANEMIA UNSPECIFIED] Onset: 1 Episodic Diabetes mellitus with complications (15 sources) Hyperosmolar non-ketotic state in type 2 diabetes mellitus; Translations: [Type 2 diabetes mellitus with hyperosmolarity without nonketotic hyperglycemic-hyperosmol ar coma ([facility])] Onset: 4 12-14-2019 Chronic Diabetes mellitus without complication (15 sources) Diabetes mellitus; Translations: [Type 2 diabetes mellitus without complications] Onset: 1 06-07-2020 Chronic Diabetes mellitus without complication (20 sources) Steroid-induced hyperglycemia; Translations: [Acute hyperglycemia] Onset: 4 11-09-2019 Episodic Diseases of white blood cells (14 sources) Leukocytosis; Translations: [Elevated white blood cell count, unspecified] 05-01-2018 Chronic Disorders of lipid metabolism (1 source) Pure hyperglyceridemia; Translations: [Pure hyperglyceridemia] Onset: 3 Chronic Esophageal disorders (20 sources) Obstruction of esophagus; Translations: [Esophageal obstruction] 09-05-2018 Chronic Essential hypertension (18 sources) Hypertensive disorder; Translations: [Essential (primary) hypertension] Onset: 1 Chronic Fluid and electrolyte disorders (20 sources) Dehydration; Translations: [Metabolic acidosis] 11-11-2019 Episodic Gastrointestinal hemorrhage (1 source) Rectal hemorrhage; Translations: [Hemorrhage of anus and rectum] 01-29-2024 Episodic Hemorrhoids (1 source) Hemorrhoids; Translations: [Unspecified hemorrhoids] 01-29-2024 Episodic Immunity disorders (20 sources) Sarcoidosis; Translations: [Sarcoidosis, unspecified] 06-07-2018 Chronic Immunizations and screening for infectious disease (1 source) Positive measurement finding; Translations: [Nonspecific reaction to tuberculin skin test without active tuberculosis] Episodic Joint disorders and dislocations; trauma-related (1 source) Other articular cartilage disorders, unspecified site; Translations: [OTHER ARTICULAR CART D/O UNS SITE] Onset: 1 Chronic Miscellaneous mental health disorders (14 sources) Dissociative convulsions; 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-27-2019 Chronic Nausea and vomiting (20 sources) Nausea and vomiting; Translations: [Nausea, vomiting and diarrhea] Onset: 4 07-28-2017 Episodic Nonspecific chest pain (20 sources) Atypical chest pain; Translations: [Other chest pain] 10-16-2021 Episodic Osteoarthritis (9 sources) Primary gonarthrosis, bilateral; Translations: [Bilateral primary osteoarthritis of knee] Onset: 4 05-10-2024 Chronic Other and unspecified benign neoplasm (8 sources) History of polyp of colon; Translations: [Personal history of colonic polyps] 11-14-2022 Episodic Other and unspecified benign neoplasm (1 source) Personal history of colonic polyps; Translations: [Personal history of colonic polyps] 11-14-2022 Episodic Other bone disease and musculoskeletal deformities (4 sources) Osteochondritis dissecans, left ankle and joints of left foot; Translations: [OSTEOCHNDRT DISSECANS LT ANK JNT FT] Onset: 1 Chronic Other bone disease and musculoskeletal deformities (1 source) Other specified osteochondropathies, left ankle and foot; Translations: [OTH OSTEOCHONDROPATHIES LT ANK FOOT] Onset: 1 Chronic Other circulatory disease (14 sources) H/O: hypertension; Translations: [Personal history of other diseases of the circulatory system] 06-07-2018 Episodic Other connective tissue disease (20 sources) Fibromyalgia; Translations: [Fibromyalgia] 07-21-2019 Episodic Other connective tissue disease (14 sources) Muscle pain; Translations: [Myalgia, unspecified site] 08-27-2017 Episodic Other connective tissue disease (13 sources) Pain in lower limb; Translations: [Pain in leg, unspecified] 12-22-2021 Episodic Other eye disorders (1 source) Red eye; Translations: [Redness of eye] Episodic Other eye disorders (13 sources) Red eye; Translations: [Other specified disorders of eye and adnexa] 07-22-2020 Episodic Other gastrointestinal disorders (20 sources) Dysphagia; Translations: [Dysphagia, unspecified] 05-28-2021 Episodic Other injuries and conditions due to external causes (6 sources) Obstruction of esophagus; Translations: [Food in esophagus causing other injury, initial encounter] 09-05-2018 Episodic Other non-traumatic joint disorders (14 sources) Joint pain; Translations: [Pain in unspecified joint] 08-20-2020 Episodic Other non-traumatic joint disorders (13 sources) Bilateral pain of joint of hands; Translations: [Pain in joints of right hand] 03-19-2022 Episodic Other non-traumatic joint disorders (1 source) Multiple joint pain; Translations: [Pain in unspecified joint] Episodic Other non-traumatic joint disorders (3 sources) Effusion of joint of left knee; Translations: [Effusion, left knee] Onset: 4 05-10-2024 Episodic Other non-traumatic joint disorders (1 source) Pain in left knee; Translations: [Acute pain of left knee] Onset: 4 Episodic Other non-traumatic joint disorders (1 source) Effusion, left knee; Translations: [Swelling of left knee joint] Onset: 4 Episodic Pneumonia (except that caused by tuberculosis or sexually transmitted disease) (3 sources) Pneumonia, unspecified organism; Translations: [Infective pneumonia] Onset: 4 Episodic Residual codes; unclassified (12 sources) History of clinical finding in subject; Translations: [Personal history of other specified conditions] 06-07-2018 Episodic Residual codes; unclassified (13 sources) Peripheral edema; Translations: [Edema, unspecified] 12-22-2021 Episodic Residual codes; unclassified (1 source) Personal history of other specified conditions; Translations: [History of seizure] 06-07-2018 Episodic Skin and subcutaneous tissue infections (20 sources) Abscess; Translations: [Cutaneous abscess, unspecified] 01-07-2019 Episodic Spondylosis; intervertebral disc disorders; other back problems (20 sources) Cervical nerve root pain; Translations: [Sciatica] Onset: 4 05-27-2021 Episodic Sprains and strains (20 sources) Sprain of knee; Translations: [Sprain of unspecified site of unspecified knee, initial encounter] 07-02-2017 Episodic Unclassified (2 sources) Unknown / UNK(Unknown) Onset: 7 Unclassified (1 source) History of clinical finding in subject; Translations: [History of seizure] Unclassified (1 source) Disorder of ligament, left ankle; Translations: [Disorder of ligament, left ankle] Onset: 3 Viral infection (15 sources) Acute viral disease; Translations: [Viral infection, unspecified] 08-15-2019 Episodic Viral infection (2 sources) COVID-19; Translations: [COVID-19] Onset: 4 Past or Other Problems Problem Classification Problem Date Documented Da te Episodic/Chronic Lymphadenitis (5 sources) Lymphadenopathy; Translations: [Generalized enlarged lymph nodes] Onset: 05-18-2013 05-18-2013 Episodic Other aftercare (1 source) roasterman (current) use of insulin; Translations: [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] Onset: 03-16-2021 Episodic Other aftercare (1 source) Other longwall shearer operator (current) drug therapy; Translations: [OTH RESIDENTIAL CURRENT DRUG THERAPY] Onset: 03-16-2021 Episodic Other connective tissue disease (5 sources) Fibromyalgia; Translations: [FIBROMYALGIA] Onset: 04-24-2017 Episodic Other gastrointestinal disorders (1 source) Other intra-abdominal and pelvic swelling, mass and lump; Translations: [Other intra-abdominal and pelvic swelling, mass and lump] Onset: 09-11-2023 Episodic Other non-traumatic joint disorders (1 source) Pain in unspecified joint; Translations: [PAIN IN UNSPECIFIED JOINT] Onset: 04-24-2017 Episodic Other non-traumatic joint disorders (1 source) Other instability, left ankle; Translations: [OTHER INSTABILITY LEFT ANKLE] Onset: 03-16-2021 Episodic Other upper respiratory infections (15 sources) Upper respiratory infection; Translations: [Acute upper respiratory infection, unspecified] Onset: 04-17-2023 08-15-2019 Episodic Results Test Name Value Interpretation Reference Range Facility Hemoglobin A1Con 06-28-2024 Average glucose Estimated from glycated hemoglobin (Bld) [Mass/Vol] 148 mg/dL [facility] Comment on above: The ADA and AACC rec ommend providing the estimated average glucose result to permit better patient understanding of their HBA1c result. HbA1c (Bld) [Mass fraction] 6.8 % High 4.0 - 6.0 % [facility] Interpretation and review of laboratory results Abnormal [facility] Glucose [Mass/Vol] 148 mg/dL Normal [facility] Comment on above: Result Comment: The ADA and AACC recommend providing the estimated average glucose result to permit better patient understanding of their HBA1c result. Performed By: #### G LYHGB #### [facility] [address] [place] [address] Hemodialysis Patient Care Specialist: Omega Rivera MD HbA1c (Bld) [Mass fraction] 6.8 % High 4.0-6.0 [facility] Comment on above: Performed By: #### G LYHGB #### [facility] [address] [place], [place] [id number] Hemodialysis Patient Care Specialist: MD Jana Paul 05-10-2024 [facility] Office Visit (JANET ) -- LONDON VELASQUEZ ([id number]) 1965 F Date Time Provider Department 05/10/24 8:30 AM SCOTCH, PAM LOORRM During your visit today, we recorded the following information about you: Pam WangKEITH 05/10/2024 5:23 PM Signed SERVICE DATE: May 10, 2024 PCP: Kassandra Klein CNP, ASSISTANT PROFESSOR NURSE EDUCATION Consult requested by emergency department for an opinion regarding chief complaint as stated below. My final impression and recommendations will be communicated back to the requesting physician by way of the shared medical record or letter via US mail. Subjective Patient ID: [place] is a 59 year old female. Chief Complaint: Patient presents with: Left Knee - New, Knee Pain PAIN EVALUATION 05/10/2024 0902 Pain Level: 10 Pain Location: Knee-Left Description: Aching;Sore;Sharp;Dull Duration Amount of Time: 5 Duration Units: Months Frequency: Intermittent Intervention/Comfort measure: Reposition;Relaxation Patient is a 59-year-old 5 foot 7 inch 180 pound medically retired female who is here with complaints of bilateral knee pain with the left significantly worse than the right for the last 2 years. However she notes that in the last 4 months both have been getting worse and particularly in the last week her left knee has become quite uncomfortable and swollen. She notes increased discomfort in her left knee with any significant walking and going up stairs particularly. Has minimal symptoms on her right. She notes that she had a cortisone injection a year ago in the left knee with relief though it only lasted a few weeks. This was given by her PCP. She was recently seen in the ED for increased pain and swelling and given an injection and instructed to use a lidocaine patch which really has not given her any relief. Taking Tylenol fairly regularly as well. Does not have a brace for this. Pain level is a 10/10 at times. Denies hip pain complaints. Denies radicular symptoms. Denies any previous injury to this knee. TREATMENTS PRIOR TO INITIAL CONSULT: Tylenol and lidocaine patch without much relief Left Corticosteroid Injection(s) 1 year ago with short-lived relief of a few weeks Review of Systems Constitutional: Negative for fever. HENT: Negative for congestion. Respiratory: Negative for cough and shortness of breath. History of COPD and sarcoidosis Cardiovascular: History of congestive heart failure and hypertension which is well-controlled. Endocrine: Negative for diabetic associated symptoms. Skin: Negative for color change and rash. Neurological: Negative for numbness. Hematological: Negative for blood/clotting disorder. Musculoskeletal: Positive for joint swelling. All other systems reviewed and are negative. ACTIVE PROBLEM LIST Lymphadenopathy Primary Osteoarthritis of Both Knees PAST MEDICAL HISTORY Diagnosis Date Depression Diabetes (HCC) Hypertension Sarcoidosis PAST SURGICAL HISTORY Procedure Laterality Date TONSILLECTOMY HX FAMILY HISTORY Problem Relation Age of Onset Cancer Sister Diabetes Sister Social History Tobacco Use Smoking status: Former Smokeless tobacco: Never ALLERGIES Allergen Reactions Tramadol Other: See Comments MEDICATIONS: acetaminophen (TYLENOL) 325 mg tablet Take 1-2 tablets by mouth every 4 hours as needed for pain for up to 7 days. empagliflozin (JARDIANCE) 10 mg tablet Take 10 mg by mouth daily with breakfast. ARIPiprazole (ABILIFY) 10 mg tablet Take 10 mg by mouth once daily. losartan (COZAAR) 50 mg tablet Take 50 mg by mouth once daily. cyclobenzaprine (FLEXERIL) 10 mg tablet Take by mouth three times daily. gabapentin (NEURONTIN) 300 mg capsule Take 2 capsules by mouth twice daily for 90 days. amLODIPine (NORVASC) 10 mg tablet Take 10 mg by mouth once daily. albuterol (PROVENTIL) 2.5 mg /3 mL (0.083 %) nebulizer solution Inhale 2.5 mg as instructed every 6 hours as needed. ferrous sulfate 325 mg (65 mg iron) tablet Take 1 tablet by mouth once daily. LORazepam (ATIVAN) 0.5 mg tab Take 0.5 mg by mouth twice daily as needed. ergocalciferol 50,000 unit capsule (VITAMIN D2, DRISDOL) TAKE 1 CAPSULE BY MOUTH ONE TIME PER WEEK HYDROcodone-acetaminophen (NORCO) 5-325 mg per tablet Take 1 tablet by mouth twice daily as needed. (Patient not taking: Reported on 07/19/2022) BUDESONIDE/FORMOTEROL FUMARATE (SYMBICORT INHALATION) Inhale as instructed. ALBUTEROL INHALATION Inhale as instructed. dexamethasone 4 mg tablet Take 4 mg by mouth twice daily with meals. (Patient not taking: Reported on 07/19/2022) atenolol 50 mg tablet Take 50 mg by mouth once daily. Calcium Carbonate-Vitamin D3 180-5,000 mg-unit tab Take by mouth. Allergies, medications, past surgical history, family history and past medical history were reviewed per this encounter. Objective Right Knee Exam Right knee exam is norm (more content not included)... Normal [facility] Large Joint Arthro/Inj: L kn ee jointon 05-10-2024 Pam Wang PA-C 05/10/2024 5:23 PM Large Joint Arthro/Inj: L knee joint Informed Consent Consent Obtained: Verbal [place] Protocol A moment to CARE was completed. SIGN IN Personnel directly involved with the procedure wore the appropriate PPE. Special Equipment: N/A Patient/Surrogate Stated/Verified: Patient name, Date of , Relevant allergies and Intended procedure TIME OUT Intended patient and procedure match the source document(s). Consent documented and matches the intended procedure. Relevant labs, photos, and/or imaging studies have been reviewed. Correct side/site marked and visible. Medications required for procedure verified. No fire risk assessment and interventions applicable. No implant(s) inserted. 05/10/2024 9:51 AM The procedure site was prepped in the usual sterile fashion. Site: L knee joint Aspirate: 33 mL yellow and clear Medications: 80 mg triamcinolone acetonide 40 mg/mL Anesthetics: 8 mL lidocaine (PF) 10 mg/mL (1 %) Outcome: Tolerated well, no immediate complications Post-injection instructions were reviewed with the patient and the patient voiced understanding of these instructions. SIGN OUT No specimen collected. No instruments, equipment or retained foreign bodies applicable. Third constitution party verified by Tyrese De La Cruz MA. [facility] XR KNEE 4V AP/PA BOTH+LAT/ME R LTon 05-10-2024 XR KNEE 4V AP/PA BOTH+LAT/DIRK LT * * *Final Report* * * DATE OF EXAM: May 10 2024 8:29AM LZX 5202 - XR KNEE 4V AP/PA BOTH+LAT/DIRK LT / PROCEDURE REASON: Primary osteoarthritis of left knee * * * * Physician Interpretation * * * * HISTORY: Primary osteoarthritis of left knee TECHNOLOGIST PROVIDED HISTORY (if applicable): chronic left knee pain with acute swelling TECHNIQUE: XR KNEE 4V AP/PA BOTH+LAT/DIRK LT RESULT: LEFT knee 4 views compared with 05/04/2024. Mild soft tissue swelling anteriorly at the level of the proximal patellar tendon is not significantly changed. No underlying fracture. Small patellar enthesophytes are unchanged. Small joint effusion with slight decrease. Today's standing views show moderate medial compartment narrowing with unchanged sclerosis and osteophytes. The lateral joint space is preserved with tiny marginal osteophytes. The patellofemoral joint is mildly narrowed medially with numerous subchondral cysts and small osteophytes. Today's images of the RIGHT knee show mild medial compartment narrowing and osteophytes with preserved lateral compartment. The patellofemoral compartment is mildly narrowed laterally. IMPRESSION: PERSISTENT ANTERIOR SOFT TISSUE SWELLING WITH SLIGHT DECREASE IN THE JOINT EFFUSION. OSTEOARTHRITIS Cloth Covered Helmet Puller: [facility] Transcribe Date/Time: May 10 2024 8:54A Dictated by : JAYME SELBY MD This examination was interpreted and the report reviewed and electronically signed by: JAYME SELBY MD on May 10 2024 8:56AM EST [id number] Normal [facility] XR Knee - left 4 Viewson IMPRESSION: PERSISTE NT ANTERIOR SOFT TISSUE SWELLING WITH SLIGHT DECREASE IN THE JOINT EFFUSION. OSTEOARTHRITIS Cloth Covered Helmet Puller: [facility] Transcribe Date/Time: May 10 2024 8:54A Dictated by : JAYME SELBY MD This examination was interpreted and the report reviewed and electronically signed by: JAYME SELBY MD on May 10 2024 8:56AM EST DIVISION OF RADIOLOGY * * *Final Report* * * DATE OF EXAM: May 10 2024 8:29AM LZX 5202 - XR KNEE 4V AP/PA BOTH+LAT/DIRK LT / PROCEDURE REASON: Primary osteoarthritis of left knee * * * * Physician Interpretation * * * * HISTORY: Primary osteoarthritis of left knee TECHNOLOGIST PROVIDED HISTORY (if applicable): chronic left knee pain with acute swelling TECHNIQUE: XR KNEE 4V AP/PA BOTH+LAT/DIRK LT RESULT: LEFT knee 4 views compared with 05/04/2024. Mild soft tissue swelling anteriorly at the level of the proximal patellar tendon is not significantly changed. No underlying fracture. Small patellar enthesophytes are unchanged. Small joint effusion with slight decrease. Today's standing views show moderate medial compartment narrowing with unchanged sclerosis and osteophytes. The lateral joint space is preserved with tiny marginal osteophytes. The patellofemoral joint is mildly narrowed medially with numerous subchondral cysts and small osteophytes. Today's images of the RIGHT knee show mild medial compartment narrowing and osteophytes with preserved lateral compartment. The patellofemoral compartment is mildly narrowed laterally. DIVISION OF RADIOLOGY Provider, [facility] Inderjit hanna Shickley - 05/10/2024 * * *Final Report* * * DATE OF EXAM: May 10 2024 8:29AM LZX 5202 - XR KNEE 4V AP/PA BOTH+LAT/DIRK LT / PROCEDURE REASON: Primary osteoarthritis of left knee * * * * Physician Interpretation * * * * HISTORY: Primary osteoarthritis of left knee TECHNOLOGIST PROVIDED HISTORY (if applicable): chronic left knee pain with acute swelling TECHNIQUE: XR KNEE 4V AP/PA BOTH+LAT/DIRK LT RESULT: LEFT knee 4 views compared with 05/04/2024. Mild soft tissue swelling anteriorly at the level of the proximal patellar tendon is not significantly changed. No underlying fracture. Small patellar enthesophytes are unchanged. Small joint effusion with slight decrease. Today's standing views show moderate medial compartment narrowing with unchanged sclerosis and osteophytes. The lateral joint space is preserved with tiny marginal osteophytes. The patellofemoral joint is mildly narrowed medially with numerous subchondral cysts and small osteophytes. Today's images of the RIGHT knee show mild medial compartment narrowing and osteophytes with preserved lateral compartment. The patellofemoral compartment is mildly narrowed laterally. IMPRESSION IMPRESSION: PERSISTENT ANTERIOR SOFT TISSUE SWELLING WITH SLIGHT DECREASE IN THE JOINT EFFUSION. OSTEOARTHRITIS Cloth Covered Helmet Puller: [facility] Transcribe Date/Time: May 10 2024 8:54A Dictated by : JAYME SELBY MD This examination was interpreted and the report reviewed and electronically signed by: JAYME SELBY MD on May 10 2024 8:56AM EST [facility] Radiology Study observation (narrative) Kajal gomez [facility] XR Knee - left 4 ViewsOrdere d By: [facility] Provider on 05-10-2024 [facility] Basic metabolic 2000 panelon 05-04-2024 Anion gap [Moles/Vol] 13 mmol/L Normal 8-15 [facility] Comment on above: Order Comment: Speci men Type: BLOOD SPECIMENOrdering Facility: [facility] Address: [address] [place] [address] Performed By: #### 2 4321-2, 1987-, 308- ####[facility] LABCLIA [id number] [address] [address] [place] Calcium [Mass/Vol] 9.1 mg/dL Normal 8.5-10.2 [facility] Comment on above: Order Comment: Speci men Type: BLOOD SPECIMENOrdering Facility: [facility] Address: [address] [place] [address] Performed By: #### 2 4320-07, 1987-10, 3083-06 ####[facility] LABCLIA [id number] [place] [address] [place] Chloride [Moles/Vol] 111 mmol/L High 98-107 [facility] Comment on above: Order Comment: Speci men Type: BLOOD SPECIMENOrdering Facility: [facility] Address: [address] [place] [address] Performed By: #### 2 4320-07, 1987-10, 3083-06 ####[facility] LABCLIA [id number] [place] [address] [place] CO2 [Moles/Vol] 17 mmol/L Low 22-30 [facility] Comment on above: Order Comment: Speci men Type: BLOOD SPECIMENOrdering Facility: [facility] Address: [address] [place] [address] Performed By: #### 2 4320-07, 1987-10, 3083-06 ####[facility] LABCLIA [id number] [place] [address] [place] Creatinine [Mass/Vol] 0.80 mg/dL Normal 0.58-0.96 [facility] Comment on above: Order Comment: Speci men Type: BLOOD SPECIMENOrdering Facility: [facility] Address: [address] [place] [address] Performed By: #### 2 4320-07, 1987-10, 3083-06 ####[facility] LABCLIA [id number] [place] [id number] [place] Creatinine and Glomerular filtration rate.predicted panel (S/P/Bld) 85 mL/min/1.73m??? Normal >=60 [facility] Comment on above: Order Comment: Yumiko moody Type: BLOOD SPECIMENOrdering Facility: [facility] Address: [address] [place] [address] Result Comment: Doyle mated Glomerular Filtration Rate (eGFR) is calculated using the 2020 CKD-EPI creatinine equation. This equation utilizes serum creatinine, sex, and age as parameters. The creatinine assay has traceable calibration to isotope dilution-mass spectrometry. Refer to KDIGO guidelines for clinical interpretation. In patients with unstable renal function, e.g. those with acute kidney injury, the eGFR may not accurately reflect actual GFR. Performed By: #### 2 4320-07, 1987-10, 3083-06 ####[facility] LABIA [id number] [place] [address] [place] Glucose [Mass/Vol] 79 mg/dL Normal 74-99 [facility] Comment on above: Order Comment: Yumiko moody Type: BLOOD SPECIMENOrdering Facility: [facility] Address: [address] [place] [address] Result Comment: The [place] Diabetes Association (ADA) provides guidance for cutoff values for fasting glucose and random glucose. The ADA defines fasting as no caloric intake for at least 8 hours. Fasting plasma glucose results between 100 to 125 mg/dL indicate increased risk for diabetes (prediabetes). Fasting plasma glucose results greater than or equal to 126 mg/dL meet the criteria for diagnosis of diabetes. In the absence of unequivocal hyperglycemia, results should be confirmed by repeat testing. In a patient with classic symptoms of hyperglycemia or hyperglycemic crisis, random plasma glucose results greater than or equal to 200 mg/dL meet the criteria for diagnosis of diabetes. Reference: Standards of Medical Care in Diabetes 2016, [place] Diabetes Association. Diabetes Care. 2016.39(Suppl 1). Performed By: #### 2 43207-01, 1987-10, 3083-06 ####[facility] LABIA [id number] [place] [address] [place] Potassium [Moles/Vol] 4.2 mmol/L Normal 3.7-5.1 [facility] Comment on above: Order Comment: Speci men Type: BLOOD SPECIMENOrdering Facility: [facility] Address: [address] [place] [address] Performed By: #### 2 4320-07, 1987-10, 3083-06 ####[facility] LABCLIA [id number] [place] [address] [place] Sodium [Moles/Vol] 141 mmol/L Normal 136-144 [facility] Comment on above: Order Comment: Speci men Type: BLOOD SPECIMENOrdering Facility: [facility] Address: [address] [place] [address] Performed By: #### 2 4320-07, 1987-10, 3083-06 ####[facility] LABCLIA [id number] [place] [address] [place] Urea nitrogen [Mass/Vol] 11 mg/dL Normal 7-21 [facility] Comment on above: Order Comment: Speci men Type: BLOOD SPECIMENOrdering Facility: [facility] Address: [address] [place] [address] Performed By: #### 2 4320-07, 1987-10, 3083-06 ####[facility] LABIA [id number] [place] [address] [place] CBC W Auto Differential pane l (Bld)on 05-04-2024 Anisocytosis Ql (Bld) Present Normal [facility] Comment on above: Order Comment: Speci men Type: BLOOD SPECIMENOrdering Facility: [facility] Address: [address] [place] [address] Performed By: #### 5 7021-8 ####[facility] LABCLIA [id number] [place] [id number] [place] Basophils (Bld) [#/Vol] 0.30 10*3/uL High <0.11 [facility] Comment on above: Order Comment: Speci men Type: BLOOD SPECIMENOrdering Facility: [facility] Address: [address] [place] [address] Performed By: #### 5 7021-8 ####[facility] LABCLIA [id number] [place] [address] [place] Basophils/100 WBC (Bld) 3.5 % Normal [facility] Comment on above: Order Comment: Speci men Type: BLOOD SPECIMENOrdering Facility: [facility] Address: [address] [place] [address] Performed By: #### 5 7021-8 ####[facility] LABCLIA [id number] [place] [address] [place] Differential cell count method Nom (Bld) Manual Normal [facility] Comment on above: Order Comment: Speci men Type: BLOOD SPECIMENOrdering Facility: [facility] Address: [address] [place] [address] Performed By: #### 5 7021-8 ####[facility] LABCLIA [id number] [place] [address] [place] Eosinophils (Bld) [#/Vol] 0.30 10*3/uL Normal <0.46 [facility] Comment on above: Order Comment: Speci men Type: BLOOD SPECIMENOrdering Facility: [facility] Address: [address] [place] [address] Performed By: #### 5 7021-8 ####[facility] LABCLIA [id number] [address] [place] Eosinophils/100 WBC (Bld) 3.5 % Normal [facility] Comment on above: Order Comment: Speci men Type: BLOOD SPECIMENOrdering Facility: [facility] Address: [address] [place] [address] Performed By: #### 5 7021-8 ####[facility] LABCLIA [id number] [place] [address] [place] Erythrocyte distribution width (RBC) [Ratio] 15.2 % High 11.5-15.0 [facility] Comment on above: Order Comment: Speci men Type: BLOOD SPECIMENOrdering Facility: [facility] Address: [address] [place] [address] Performed By: #### 5 7021-8 ####[facility] LABCLIA [id number] [place] [address] [place] Hematocrit (Bld) [Volume fraction] 36.8 % Normal 36.0-46.0 [facility] Comment on above: Order Comment: Speci men Type: BLOOD SPECIMENOrdering Facility: [facility] Address: [address] [place] [address] Performed By: #### 5 7021-8 ####[facility] LABCLIA [id number] [place] [address] [place] Hemoglobin (Bld) [Mass/Vol] 12.3 g/dL Normal 11.5-15.5 [facility] Comment on above: Order Comment: Speci men Type: BLOOD SPECIMENOrdering Facility: [facility] Address: [address] [place] [address] Performed By: #### 5 7021-8 ####[facility] LABCLIA [id number] [place] [address] [place] Lymphocytes (Bld) [#/Vol] 3.07 10*3/uL Normal 1.00-4.00 [facility] Comment on above: Order Comment: Speci men Type: BLOOD SPECIMENOrdering Facility: [facility] Address: [address] [place] [address] Performed By: #### 5 7021-8 ####[facility] LABCLIA [id number] [place] [address] [place] Lymphocytes/100 WBC (Bld) 36.3 % Normal [facility] Comment on above: Order Comment: Speci men Type: BLOOD SPECIMENOrdering Facility: [facility] Address: [address] [place] [address] Performed By: #### 5 7021-8 ####[facility] LABCLIA [id number] [place] [address] [place] MCH (RBC) [Entitic mass] 30.6 pg Normal 26.0-34.0 [facility] Comment on above: Order Comment: Speci men Type: BLOOD SPECIMENOrdering Facility: [facility] Address: [address] [place] [address] Performed By: #### 5 7021-8 ####[facility] LABIA [id number] [place] [address] [place] MCHC (RBC) [Mass/Vol] 33.4 g/dL Normal 30.5-36.0 [facility] Comment on above: Order Comment: Speci men Type: BLOOD SPECIMENOrdering Facility: [facility] Address: [address] [place] [address] Performed By: #### 5 7021-8 ####[facility] LABIA [id number] [place] [address] [place] MCV (RBC) [Entitic vol] 91.5 fL Normal 80.0-100.0 [facility] Comment on above: Order Comment: Speci men Type: BLOOD SPECIMENOrdering Facility: [facility] Address: [address] [place] [address] Performed By: #### 5 7021-8 ####[facility] LABCLIA [id number] [place] [address] [place] Monocytes (Bld) [#/Vol] 0.52 10*3/uL Normal <0.87 [facility] Comment on above: Order Comment: Speci men Type: BLOOD SPECIMENOrdering Facility: [facility] Address: [address] [place] [address] Performed By: #### 5 7021-8 ####[facility] LABCLIA [id number] [place] [address] [place] Monocytes/100 WBC (Bld) 6.2 % Normal [facility] Comment on above: Order Comment: Speci men Type: BLOOD SPECIMENOrdering Facility: [facility] Address: [address] [place] [address] Performed By: #### 5 7021-8 ####[facility] LABCLIA [id number] [place] [address] [place] Neutrophils (Bld) [#/Vol] 4.27 10*3/uL Normal 1.45-7.50 [facility] Comment on above: Order Comment: Speci men Type: BLOOD SPECIMENOrdering Facility: [facility] Address: [address] [place] [address] Performed By: #### 5 7021-8 ####[facility] LABCLIA [id number] [place] [address] [place] Neutrophils/100 WBC (Bld) 50.5 % Normal [facility] Comment on above: Order Comment: Speci men Type: BLOOD SPECIMENOrdering Facility: [facility] Address: [address] [place] [address] Performed By: #### 5 7021-8 ####[facility] LABCLIA [id number] [place] [address] [place] Nucleated RBC (Bld) [#/Vol] 10*3/uL Normal <0.01 [facility] Comment on above: Order Comment: Speci men Type: BLOOD SPECIMENOrdering Facility: [facility] Address: [address] [place] [address] Performed By: #### 5 7021-8 ####[facility] LABCLIA [id number] [place] [address] [place] Nucleated RBC/100 WBC (Bld) [Ratio] 0.0 /100 WBC Normal [facility] Comment on above: Order Comment: Speci men Type: BLOOD SPECIMENOrdering Facility: [facility] Address: [address] [place] [address] Performed By: #### 5 7021-8 ####[facility] LABIA [id number] [place] [address] [place] Platelet mean volume (Bld) [Entitic vol] 10.0 fL Normal 9.0-12.7 [facility] Comment on above: Order Comment: Speci men Type: BLOOD SPECIMENOrdering Facility: [facility] Address: [address] [place] [address] Performed By: #### 5 7021-8 ####[facility] LABIA [id number] [place] [address] [place] Platelets (Bld) [#/Vol] 342 10*3/uL Normal 150-400 [facility] Comment on above: Order Comment: Speci men Type: BLOOD SPECIMENOrdering Facility: [facility] Address: [address] [place] [address] Performed By: #### 5 7021-8 ####[facility] LABIA [id number] [place] [address] [place] Platelets Estimate (Bld) [#/Vol] Adequate Normal [facility] Comment on above: Order Comment: Speci men Type: BLOOD SPECIMENOrdering Facility: [facility] Address: [address] [place] [address] Performed By: #### 5 7021-8 ####[facility] LABIA [id number] [place] [address] [place] RBC (Bld) [#/Vol] 4.02 10*6/uL Normal 3.90-5.20 [facility] Comment on above: Order Comment: Speci men Type: BLOOD SPECIMENOrdering Facility: [facility] Address: [address] [place] [address] Performed By: #### 5 7021-8 ####[facility] LABCLIA [id number] [place] [address] [place] RED CELL MORPH Reviewed: see result s of individual morphologies Normal [facility] Comment on above: Order Comment: Speci men Type: BLOOD SPECIMENOrdering Facility: [facility] Address: [address] [place] [address] Performed By: #### 5 7021-8 ####[facility] LABCLIA [id number] [place] [address] [place] Target cells LM Ql (Bld) Few Normal [facility] Comment on above: Order Comment: Speci men Type: BLOOD SPECIMENOrdering Facility: [facility] Address: [address] [place] [address] Performed By: #### 5 7021-8 ####[facility] LABCLIA [id number] [place] [address] [place] WBC (Bld) [#/Vol] 8.45 10*3/uL Normal 3.70-11.00 [facility] Comment on above: Order Comment: Speci men Type: BLOOD SPECIMENOrdering Facility: [facility] Address: [address] [place] [address] Performed By: #### 5 7021-8 ####[facility] LABCLIA [id number] [place] [address] [place] CRP SerPl-mCncon 05-04-2024 CRP [Mass/Vol] 0.5 mg/dL Normal <0.9 [facility] Comment on above: Order Comment: Speci men Type: BLOOD SPECIMENOrdering Facility: [facility] Address: [address] [place] [address] Performed By: #### 2 4321-2, 1988-5, 3084-1 ####[facility] LABCLIA [id number] [place] [address] [place] ED NOTEon 05-04-2024 ED NOTE HNO ID: [id number] Author: GURPREET LIMA RN Service: Emergency Medicine Author Type: Registered Nurse Type: ED Notes Filed: 05/05/2024 16:17 Note Text: Emergency Services: ED Call Back Questionnaire SERVICE DATE: 05/04/2024 Are you feeling better? Yes Any questions about discharge instructions and follow-up care? No Were you able to make a follow up appointment? Yes Do you have any further questions? No Is there anything that we could have done differently to improve your ED visit? No SIGNATURE: Gurpreet Lima RN PATIENT NAME: London Velasquez DATE: May 05, 2024 TIME: 4:16 PM Normal [facility] ED NOTE HNO ID: [id number] Author: THI CAREY LPN Service: Emergency Medicine Author Type: LICENSED NURSE Type: ED Notes Filed: 05/04/2024 15:00 Note Text: Lisa wrap applied to the left knee. Patient remains hemodynamically stable with no complaints at this time. Normal [facility] ED PROV NOTEon 05-04-2024 ED PROV NOTE HNO ID: [id number] Author: YEISON PHILLIPS PA-C Service: Emergency Medicine Author Type: Physician Coffee Urn Attendant Type: ED Provider Notes Filed: 05/04/2024 16:34 Note Text: ED Provider Note Patient Name: London Velasquez : 1965 SERVICE DATE: 05/04/24 History Patient presents with: Knee Pain: Patient presenting to ED with left knee pain/swelling x4 days w/o injury/trauma. Ms. London Velasquez, a 59-year-old female, with a previous medical history of depression, diabetes (not on medications), hypertension, sarcoidosis, who presents to the Emergency Department with a chief complaint of left knee pain. Patient notes she has had progressive left knee pain and swelling over the last 4 days. Patient denies any injury or trauma. 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 Patient denies any numbness/paresthesia, fever/chills, saddle anesthesia, bowel/bladder emptying difficulty, motor weakness/paralysis. No history of gout. Patient states she has not taken anything to alleviate her symptoms. PAST MEDICAL HISTORY Diagnosis Date - Depression - Diabetes (HCC) - Hypertension - Sarcoidosis PAST SURGICAL HISTORY Procedure Laterality Date - TONSILLECTOMY HX FAMILY HISTORY Problem Relation Age of Onset - Cancer Sister - Diabetes Sister Social History Tobacco Use - Smoking status: Former - Smokeless tobacco: Never Substance and Sexual Activity - Alcohol use: Not on file - Drug use: Not on file - Sexual activity: Not on file ALLERGIES Allergen Reactions - Tramadol Other: See Comments - Ibuprofen Itching - Naproxen Itching Review of Systems Constitutional: Negative for chills and fever. Respiratory: Negative for shortness of breath. Cardiovascular: Negative for chest pain. Musculoskeletal: Positive for arthralgias. Negative for gait problem. Neurological: Negative for weakness and light-headedness. Physical Exam Vitals [05/04/24 1341] BP Pulse Temp Temp src Resp SpO2 Weight Height 146/95 85 -- -- 18 100 % -- -- Physical Exam Vitals and nursing note reviewed. Constitutional: General: She is not in acute distress. Appearance: Normal appearance. She is not ill-appearing or toxic-appearing. Comments: Pt is well-appearing, well-nourished, and non toxic in appearance. Communicates in full sentences with ease. No evidence of acute cardiac or respiratory distress. Resting in bed comfortably HENT: Head: Normocephalic and atraumatic. Right Ear: External ear normal. Left Ear: External ear normal. Mouth/Throat: Mouth: Mucous membranes are moist. Pharynx: No oropharyngeal exudate or posterior oropharyngeal erythema. Eyes: Conjunctiva/sclera: Conjunctivae normal. Cardiovascular: Rate and Rhythm: Normal rate and regular rhythm. Pulses: Normal pulses. Radial pulses are 2+ on the right side and 2+ on the left side. Posterior tibial pulses are 2+ on the right side and 2+ on the left side. Heart sounds: Normal heart sounds. Pulmonary: Effort: Pulmonary effort is normal. No respiratory distress. Breath sounds: Normal breath sounds. Abdominal: General: Bowel sounds are normal. There is no distension. Palpations: Abdomen is soft. Tenderness: There is no abdominal tenderness. There is no right CVA tenderness, left CVA tenderness, guarding or rebound. Musculoskeletal: General: No swelling or tenderness. Normal range of motion. Cervical back: Normal range of motion. Right lower leg: No edema. Left lower leg: No edema. Comments: Mild swelling noted to left knee, with medial distal femur tenderness to palpation without excessive warmth to palpation, erythema/induration, pain with passive range of motion. Patellar tendon intact bilaterally. No laxity valgus/varus strain of left knee. Negative Ayla's test of left knee. Full range of motion intact including shoulder abduction/abduction, elbow flexion/extension, wrist flexion/extension, hip flexion/extension, knee flexion/extension, dorsiflexion/plantarflexio n. No otherbony tenderness, deformities, crepitus, lacerations, erythema/induration noted. Skin: General: Skin is warm and dry. Capillary Refill: Capillary refill takes less than 2 seconds. Findings: No rash. Neurological: Mental Status: She is alert and oriented to person, place, and time. Mental status is at baseline. Motor: No weakness. Comments: Sensation to light touch intact in BUE, BLE, and neck. No weakness. Strength 5/5 in shoulder abductors, shoulder adductors, elbow flexors, elbow extensors, wrist extensors, wrist flexors, finger flexors, hand intrinsics, hip flexors, knee extensors, dorsiflexors, great toe extensor, and plantarflexors. Gait normal. Psychiatric: Behavior: Behavior normal. Thought Content: Thought content normal. Diagnostic Testing ED Labs Ordered and Reviewed COMPLETE BLOOD COUNT AND DIFFERE (more content not included)... Normal [facility] ED Triage Noteon 05-04-2024 ED Triage Note HNO ID: [id number] Author: JAYME VENCES MD Service: Emergency Medicine Author Type: Physician Type: ED Triage Notes Filed: 05/04/2024 13:45 Note Text: ED TRIAGE PROVIDER NOTE Patient Name: London Velasquez Service Date: 05/04/24 BRIEF HPI: This is a 59 year old female who presents to the ED with: left knee pain zachariah swelling. Hx sarcoidosis; ? Hx RA BRIEF EXAM: Left knee effusion; no def erythema; mild warmth. INITIAL WORKUP AND DECISION MAKING: Orders Placed This Encounter XR KNEE LIMITED 2V AP/LAT LT BASIC METABOLIC PNL C-REACTIVE PROTEIN (CRP) CBC + DIFF Uric Acid SIGNATURE: Jayme Vences MD Normal [facility] Urate SerPl-mCncon Urate [Mass/Vol] 4.5 mg/dL Normal 2.5-6.6 [facility] Comment on above: Order Comment: Speci men Type: BLOOD SPECIMENOrdering Facility: [facility] Address: [address] [place] [address] Performed By: #### 2 4321-2, 1987-, 3084-1 ####[facility] LABCLIA [id number] [facility] [id number] [address] [place] XR KNEE 2V AP/LAT LTon 05-04 XR KNEE 2V AP/LAT LT * * *Final Report* * * DATE OF EXAM: May 04 2024 1:58PM EGX 5206 - XR KNEE 2V AP/LAT LT / PROCEDURE REASON: Other * * * * Physician Interpretation * * * * EXAMINATION: XR KNEE 2V AP/LAT LT HISTORY: Other . TECHNIQUE: XR KNEE 2V AP/LAT LT Laterality: Number of different views (projections): 2 M: XB_1 COMPARISON: RESULT: Moderate narrowing of the left medial compartment with mild medial and patellofemoral compartment osteoarthritis. Small knee joint effusion. No acute fracture or dislocation. There are no bony erosions. IMPRESSION: No acute osseous findings. Cloth Covered Helmet Puller: RONA Transcribe Date/Time: May 04 2024 1:59P Dictated by : LENIN LEBLANC MD This examination was interpreted and the report reviewed and electronically signed by: LENIN LEBLANC MD on May 04 2024 2:00PM EST [id number] Normal [facility] Bacteria identifiedon 2023 Bacteria identified Cx Nom (Bld) Test: Blood Culture Specimen Source: Peripheral Venipuncture Specimen Type: Blood culture Specimen Date: 03/23/20241849 Result Date: 03/27/20242300 Result Status: Final result Abnormal: No Resulting Lab: [facility] [address] [address] CULTURE No growth at 4 days - FINAL REPORT Normal [facility] Comment on above: Performed By: #### 6 00-7 #### JUANA Hall ([id number]) [facility] ([facility]) [address] [place] [address] Performed By: #### 5 7021-8 #### OPAL Dodson ([id number]) [facility] () [address] [place] [address] CBC W Auto Differential pane l (Bld)on 03-23-2024 Basophils (Bld) [#/Vol] 0.06 10*3/uL [facility] Basophils/100 WBC (Bld) 0.3 % 0.0 - 2.0 % [facility] Eosinophils (Bld) [#/Vol] 0.05 10*3/uL [facility] Eosinophils/100 WBC (Bld) 0.2 % 0.0 - 6.0 % [facility] Erythrocyte distribution width (RBC) [Ratio] 14.7 % High 11.5 - 14.5 % [facility] Hematocrit (Bld) [Volume fraction] 33.7 % Low 36.0 - 46.0 % [facility] Hemoglobin (Bld) [Mass/Vol] 11.3 g/dL Low 12.0 - 16.0 g/dL [facility] Immature granulocytes (Bld) [#/Vol] 0.23 10*3/uL [facility] Immature granulocytes/100 WBC (Bld) 1.1 % High 0.0 - 0.9 % [facility] Comment on above: Immature Granulocyte Count (IG) includes promyelocytes, myelocytes and metamyelocytes but does not include bands. Percent differential counts (%) should be interpreted in the context of the absolute cell counts (cells/UL). Interpretation and review of laboratory results Abnormal [facility] Lymphocytes (Bld) [#/Vol] 1.87 10*3/uL [facility] Lymphocytes/100 WBC (Bld) 9.1 % 13.0 - 44.0 % [facility] MCH (RBC) [Entitic mass] 31.5 pg 26.0 - 34.0 pg [facility] MCHC (RBC) [Mass/Vol] 33.5 g/dL 32.0 - 36.0 g/dL [facility] MCV (RBC) [Entitic vol] 94 fL 80 - 100 fL [facility] Monocytes (Bld) [#/Vol] 1.53 10*3/uL High [facility] Monocytes/100 WBC (Bld) 7.5 % 2.0 - 10.0 % [facility] Neutrophils (Bld) [#/Vol] 16.74 10*3/uL [facility] Comment on above: Percent differential counts (%) should be interpreted in the context of the absolute cell counts (cells/uL). Neutrophils/100 WBC (Bld) 81.8 % 40.0 - 80.0 % [facility] Nucleated RBC/100 WBC (Bld) [Ratio] 0.0 % [facility] Platelets (Bld) [#/Vol] 438 10*3/uL [facility] RBC (Bld) [#/Vol] 3.59 10*6/uL Low [facility] WBC (Bld) [#/Vol] 20.5 10*3/uL High [facility] Basophils (Bld) [#/Vol] 0.06 x10*3/uL Normal 0.00-0.10 [facility] Comment on above: Performed By: #### 5 7021-8 #### OPAL Dodson ([id number]) [facility] () [address] [place] [address] Basophils/100 WBC (Bld) 0.3 % Normal 0.0-2.0 [facility] Comment on above: Performed By: #### 5 7021-8 #### OPAL Dodson ([id number]) [facility] () [address] [place] [address] Eosinophils (Bld) [#/Vol] 0.05 x10*3/uL Normal 0.00-0.70 [facility] Comment on above: Performed By: #### 5 7021-8 #### OPAL Dodson ([id number]) [facility] () [address] [place] [address] Eosinophils/100 WBC (Bld) 0.2 % Normal 0.0-6.0 [facility] Comment on above: Performed By: #### 5 7021-8 #### OPAL Dodson ([id number]) [facility] () [address] [place] [address] Erythrocyte distribution width (RBC) [Ratio] 14.7 % High 11.5-14.5 [facility] Comment on above: Performed By: #### 5 7021-8 #### OPAL Dodson ([id number]) [facility] () [address] [place] [address] Hematocrit (Bld) [Volume fraction] 33.7 % Low 36.0-46.0 [facility] Comment on above: Performed By: #### 5 7021-8 #### OPAL Dodson ([id number]) [facility] () [address] [place] [address] Hemoglobin (Bld) [Mass/Vol] 11.3 g/dL Low 12.0-16.0 [facility] Comment on above: Performed By: #### 5 7021-8 #### OPAL Dodson ([id number]) [facility] () [address] [place] [address] Immature granulocytes (Bld) [#/Vol] 0.23 x10*3/uL Normal 0.00-0.70 [facility] Comment on above: Performed By: #### 5 7021-8 #### OPAL Dodson ([id number]) [facility] () [address] [place] [address] Immature granulocytes/100 WBC (Bld) 1.1 % High 0.0-0.9 [facility] Comment on above: Result Comment: Dipti ture Granulocyte Count (IG) includes promyelocytes, myelocytes and metamyelocytes but does not include bands. Percent differential counts (%) should be interpreted in the context of the absolute cell counts (cells/UL). Performed By: #### 5 7021-8 #### OPAL Dodson ([id number]) [facility] () [address] [place] [address] Lymphocytes (Bld) [#/Vol] 1.87 x10*3/uL Normal 1.20-4.80 [facility] Comment on above: Performed By: #### 5 7021-8 #### OPAL Dodson ([id number]) [facility] () [address] [place] [address] Lymphocytes/100 WBC (Bld) 9.1 % Normal 13.0-44.0 [facility] Comment on above: Performed By: #### 5 7021-8 #### OPAL Dodson ([id number]) [facility] () [address] [place] [address] MCH (RBC) [Entitic mass] 31.5 pg Normal 26.0-34.0 [facility] Comment on above: Performed By: #### 5 7021-8 #### OPAL Dodson ([id number]) [facility] () [address] [place] [address] MCHC (RBC) [Mass/Vol] 33.5 g/dL Normal 32.0-36.0 [facility] Comment on above: Performed By: #### 5 7021-8 #### OPAL Dodson ([id number]) [facility] () [address] [place] [address] MCV (RBC) [Entitic vol] 94 fL Normal 80-100 [facility] Comment on above: Performed By: #### 5 7021-8 #### OPAL Dodson ([id number]) [facility] () [address] [place] [address] Monocytes (Bld) [#/Vol] 1.53 x10*3/uL High 0.10-1.00 [facility] Comment on above: Performed By: #### 5 7021-8 #### OPAL Dodson ([id number]) [facility] () [address] [place] [address] Monocytes/100 WBC (Bld) 7.5 % Normal 2.0-10.0 [facility] Comment on above: Performed By: #### 5 7021-8 #### OPAL Dodson ([id number]) [facility] () [address] [place] [address] Neutrophils (Bld) [#/Vol] 16.74 x10*3/uL High 1.20-7.70 [facility] Comment on above: Result Comment: Perc ent differential counts (%) should be interpreted in the context of the absolute cell counts (cells/uL). Performed By: #### 5 7021-8 #### OPAL Dodson ([id number]) [facility] () [address] [place] [address] Neutrophils/100 WBC (Bld) 81.8 % Normal 40.0-80.0 [facility] Comment on above: Performed By: #### 5 7021-8 #### OPAL Dodson ([id number]) [facility] () [address] [place] [address] Nucleated RBC/100 WBC (Bld) [Ratio] 0.0 /100 WBCs Normal 0.0-0.0 [facility] Comment on above: Performed By: #### 5 7021-8 #### OPAL Dodson ([id number]) [facility] () [address] [place] [address] Platelets (Bld) [#/Vol] 438 x10*3/uL Normal 150-450 [facility] Comment on above: Performed By: #### 5 7021-8 #### OPAL Dodson ([id number]) [facility] () [address] [place] [address] RBC (Bld) [#/Vol] 3.59 x10*6/uL Low 4.00-5.20 [facility] Comment on above: Performed By: #### 5 7021-8 #### OPAL PRESLEY T ([id number]) [facility] () [address] [place] [address] WBC (Bld) [#/Vol] 20.5 x10*3/uL High 4.4-11.3 [facility] Comment on above: Performed By: #### 5 7021-8 #### OPAL FERNANDEZ T ([id number]) [facility] () [address] [place] [address] CT ABDOMEN PELVIS W IV CONTR Jose Antonio 03-23-2024 CT ABDOMEN PELVIS W IV CONTRAST Interpreted By: Jose Kelly, STUDY: CT ABDOMEN PELVIS W IV CONTRAST; 03/23/2024 10:36 pm INDICATION: Signs/Symptoms:abnormal LFTs. COMPARISON: None. ACCESSION NUMBER(S): [id number] ORDERING CLINICIAN: PETER SUE TECHNIQUE: CT of the abdomen and pelvis was performed. Standard contiguous axial images were obtained at 3 mm slice thickness through the abdomen and pelvis. Coronal and sagittal reconstructions at 3 mm slice thickness were performed. 75 ml of contrast Omnipaque were administered intravenously without immediate complication. FINDINGS: LOWER CHEST: There is a region of confluent consolidation noted in the right lung base concerning for pneumonia. ABDOMEN: LIVER: Within normal limits. BILE DUCTS: Normal caliber. GALLBLADDER: The gallbladder is surgically absent. PANCREAS: Within normal limits. SPLEEN: Within normal limits. ADRENAL GLANDS: Within normal limits. KIDNEYS AND URETERS: The kidneys are normal in size and enhance symmetrically. PELVIS: BLADDER: Within normal limits. REPRODUCTIVE ORGANS: No pelvic masses. BOWEL: The stomach, small and large bowel are normal in appearance without wall thickening or obstruction. Normal appendix. VESSELS: The aorta and IVC appear normal. PERITONEUM/RETROPERITONEUM /LYMPH NODES: No ascites or free air, no fluid collection. No enlarged mesenteric lymph nodes. BONES AND ABDOMINAL WALL: No suspicious osseous lesions are identified. 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 The abdominal wall soft tissues appear normal. IMPRESSION: 1. There is a region of confluent consolidation noted in the right lung base concerning for pneumonia. MACRO: None Signed by: Jose Kelly 03/23/2024 10:40 PM Dictation workstation: [id number] [facility] CT Abdomen and Pelvis W cont rast Aysha 03-23-2024 1. There is a region of confluent consolidation noted in the right lung base concerning for pneumonia. MACRO: None Signed by: Jose Kelly 03/23/2024 10:40 PM Dictation workstation: [id number] MMODAL Interpreted By: Jose Duenas, STUDY: CT ABDOMEN PELVIS W IV CONTRAST; 03/23/2024 10:36 pm INDICATION: Signs/Symptoms:abnormal LFTs. COMPARISON: None. ACCESSION NUMBER(S): [id number] ORDERING CLINICIAN: PETER SUE TECHNIQUE: CT of the abdomen and pelvis was performed. Standard contiguous axial images were obtained at 3 mm slice thickness through the abdomen and pelvis. Coronal and sagittal reconstructions at 3 mm slice thickness were performed. 75 ml of contrast Omnipaque were administered intravenously without immediate complication. FINDINGS: LOWER CHEST: There is a region of confluent consolidation noted in the right lung base concerning for pneumonia. ABDOMEN: LIVER: Within normal limits. BILE DUCTS: Normal caliber. GALLBLADDER: The gallbladder is surgically absent. PANCREAS: Within normal limits. SPLEEN: Within normal limits. ADRENAL GLANDS: Within normal limits. KIDNEYS AND URETERS: The kidneys are normal in size and enhance symmetrically. PELVIS: BLADDER: Within normal limits. REPRODUCTIVE ORGANS: No pelvic masses. BOWEL: The stomach, small and large bowel are normal in appearance without wall thickening or obstruction. Normal appendix. VESSELS: The aorta and IVC appear normal. PERITONEUM/RETROPERITONEUM /LYMPH NODES: No ascites or free air, no fluid collection. No enlarged mesenteric lymph nodes. BONES AND ABDOMINAL WALL: No suspicious osseous lesions are identified. 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 The abdominal wall soft tissues appear normal. MMODAL Jose Kelly MD - 03/23/2024 Interpreted By: Jose Kelly, STUDY: CT ABDOMEN PELVIS W IV CONTRAST; 03/23/2024 10:36 pm INDICATION: Signs/Symptoms:abnormal LFTs. COMPARISON: None. ACCESSION NUMBER(S): [id number] ORDERING CLINICIAN: PETER SUE TECHNIQUE: CT of the abdomen and pelvis was performed. Standard contiguous axial images were obtained at 3 mm slice thickness through the abdomen and pelvis. Coronal and sagittal reconstructions at 3 mm slice thickness were performed. 75 ml of contrast Omnipaque were administered intravenously without immediate complication. FINDINGS: LOWER CHEST: There is a region of confluent consolidation noted in the right lung base concerning for pneumonia. ABDOMEN: LIVER: Within normal limits. BILE DUCTS: Normal caliber. GALLBLADDER: The gallbladder is surgically absent. PANCREAS: Within normal limits. SPLEEN: Within normal limits. ADRENAL GLANDS: Within normal limits. KIDNEYS AND URETERS: The kidneys are normal in size and enhance symmetrically. PELVIS: BLADDER: Within normal limits. REPRODUCTIVE ORGANS: No pelvic masses. BOWEL: The stomach, small and large bowel are normal in appearance without wall thickening or obstruction. Normal appendix. VESSELS: The aorta and IVC appear normal. PERITONEUM/RETROPERITONEUM /LYMPH NODES: No ascites or free air, no fluid collection. No enlarged mesenteric lymph nodes. BONES AND ABDOMINAL WALL: No suspicious osseous lesions are identified. 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 The abdominal wall soft tissues appear normal. IMPRESSION: 1. There is a region of confluent consolidation noted in the right lung base concerning for pneumonia. MACRO: None Signed by: Jose Kelly 03/23/2024 10:40 PM Dictation workstation: [id number] [facility] Work Phone: [facility] Work Phone: Radiology Study observation (narrative) [facility] Work Phone: Comprehensive metabolic 2000 panelon 03-23-2024 Albumin BCP dye [Mass/Vol] 3.8 g/dL 3.4 - 5.0 g/dL [facility] ALP [Catalytic activity/Vol] 215 U/L High 33 - 110 U/L [facility] ALT With P-5'-P [Catalytic activity/Vol] 55 U/L High 7 - 45 U/L [facility] Comment on above: Patients treated wit h Sulfasalazine may generate falsely decreased results for ALT. Anion gap [Moles/Vol] 16 mmol/L 10 - 2 0 mmol/L [facility] AST With P-5'-P [Catalytic activity/Vol] 69 U/L High 9 - 39 U/L [facility] Bilirubin [Mass/Vol] 1.7 mg/dL High 0.0 - 1 .2 mg/dL [facility] Calcium [Mass/Vol] 9.1 mg/dL 8.6 - 10. 3 mg/dL [facility] Chloride [Moles/Vol] 105 mmol/L 98 - 10 7 mmol/L [facility] CO2 [Moles/Vol] 17 mmol/L Low 21 - 32 mmol/L [facility] Creatinine [Mass/Vol] 1.02 mg/dL 0.50 - 1.05 mg/dL [facility] GFR/1.73 sq M.predicted among non-blacks MDRD (S/P/Bld) [Vol rate/Area] 64 mL/min/{1.73_m2} - PINF [facility] Comment on above: Calculations of doyle mated GFR are performed using the 2020 CKD-EPI Study Refit equation without the race variable for the IDMS-Traceable creatinine methods. https://jasn.asnjournals.org/content/early/ASN.2020 603225 Glucose [Mass/Vol] 118 mg/dL High 74 - 99 mg/dL [facility] Interpretation and review of laboratory results Abnormal [facility] Potassium [Moles/Vol] 3.6 mmol/L 3.5 - 5.3 mmol/L [facility] Protein [Mass/Vol] 7.9 g/dL 6.4 - 8.2 g/dL [facility] Sodium [Moles/Vol] 134 mmol/L Low 136 - 145 mmol/L [facility] Urea nitrogen [Mass/Vol] 24 mg/dL High 6 - 23 mg/dL [facility] Albumin BCP dye [Mass/Vol] 3.8 g/dL Normal 3.4-5.0 [facility] Comment on above: Performed By: #### 2 4323-8 #### OPAL Dodson ([id number]) [facility] () [address] [place] [address] ALP [Catalytic activity/Vol] 215 U/L High 33-110 [facility] Comment on above: Performed By: #### 2 4323-8 #### OPAL Dodson ([id number]) [facility] () [address] [place] [address] ALT With P-5'-P [Catalytic activity/Vol] 55 U/L High 7-45 [facility] Comment on above: Result Comment: Shweta ents treated with Sulfasalazine may generate falsely decreased results for ALT. Performed By: #### 2 4323-8 #### OPAL Dodson ([id number]) [facility] () [address] [place] [address] Anion gap [Moles/Vol] 16 mmol/L Normal 10-20 [facility] Comment on above: Performed By: #### 2 4323-8 #### OPAL Dodson ([id number]) [facility] () [address] [place] [address] AST With P-5'-P [Catalytic activity/Vol] 69 U/L High 9-39 [facility] Comment on above: Performed By: #### 2 4323-8 #### OPAL Dodson ([id number]) [facility] () [address] [place] [address] Bilirubin [Mass/Vol] 1.7 mg/dL High 0.0-1.2 [facility] Comment on above: Performed By: #### 2 4323-8 #### OPAL Dodson ([id number]) [facility] () [address] [place] [address] Calcium [Mass/Vol] 9.1 mg/dL Normal 8.6-10.3 [facility] Comment on above: Performed By: #### 2 4323-8 #### OPAL Dodson ([id number]) [facility] () [address] [place] [address] Chloride [Moles/Vol] 105 mmol/L Normal 98-107 [facility] Comment on above: Performed By: #### 2 4323-8 #### OPAL Dodson ([id number]) [facility] () [address] [place] [address] CO2 [Moles/Vol] 17 mmol/L Low 21-32 [facility] Comment on above: Performed By: #### 2 4323-8 #### OPAL Dodson ([id number]) [facility] () [address] [place] [address] Creatinine [Mass/Vol] 1.02 mg/dL Normal 0.50-1.05 [facility] Comment on above: Performed By: #### 2 4323-8 #### OPAL Dodson ([id number]) [facility] () [address] [place] [address] Glomerular filtration rate/1.73 sq M.predicted 64 mL/min/1.73m*2 Normal >60 [facility] Comment on above: Result Comment: Calc ulations of estimated GFR are performed using the 2020 CKD-EPI Study Refit equation without the race variable for the IDMS-Traceable creatinine methods. https://jasn.asnjournals.org/content/early//ASN.2020 143956 Performed By: #### 2 4323-8 #### OPAL Dodson ([id number]) [facility] () [address] [place] [address] Glucose [Mass/Vol] 118 mg/dL High 74-99 [facility] Comment on above: Performed By: #### 2 4323-8 #### OPAL Dodson ([id number]) [facility] () [address] [place] [address] Potassium [Moles/Vol] 3.6 mmol/L Normal 3.5-5.3 [facility] Comment on above: Performed By: #### 2 4323-8 #### OPAL Dodson ([id number]) [facility] () [address] [place] [address] Protein [Mass/Vol] 7.9 g/dL Normal 6.4-8.2 [facility] Comment on above: Performed By: #### 2 4323-8 #### OPAL FERNANDEZ T ([id number]) [facility] () [address] [place] [address] Sodium [Moles/Vol] 134 mmol/L Low 136-145 [facility] Comment on above: Performed By: #### 2 4323-8 #### OPAL FERNANDEZ T ([id number]) [facility] () [address] [place] [address] Urea nitrogen [Mass/Vol] 24 mg/dL High 6-23 [facility] Comment on above: Performed By: #### 2 4323-8 #### OPAL FERNANDEZ T ([id number]) [facility] () [address] [place] [address] ECG 12-LEADon 03-23-2024 ECG 12-LEAD Ventricular Rate 111 Atrial Rate 111 P-R Interval 158 QRS Duration 92 Q-T Interval 342 QTC Calculation(Bazett) 465 P Vidalia 69 R Vidalia 41 T Vidalia 67 QRS Count 18 Q Onset 225 P Onset 146 P Offset 202 T Offset 396 QTC Fredericia 420 Diagnosis Sinus tachycardia Biatrial enlargement Abnormal ECG Confirmed by Jaron Norman ([id number]) on 03/25/2024 9:15:36 AM Normal [facility] FLUAV and FLUBV RNA GINETTE+prob e Nom (Unsp spec)on 03-23-2024 FLUAV RNA GINETTE+probe Ql (Resp) Not detected Not Detected [facility] FLUBV RNA GINETTE+probe Ql (Resp) Not detected Not Detected [facility] Interpretation and review of laboratory results Normal [facility] This assay is an in vitro diagnostic multiplex nucleic acid amplification test for the detection and discrimination of Influenza A & B from nasopharyngeal specimens, and has been validated for use at [facility]. Negative results do not preclude Influenza A/B infections, and should not be used as the sole basis for diagnosis, treatment, or other management decisions. If Influenza A/B and RSV PCR results are negative, testing for Parainfluenza virus, Adenovirus and Metapneumovirus is routinely performed for [facility] pediatric oncology and intensive care inpatients, and is available on other patients by placing an add-on request. [facility] FLUAV RNA GINETTE+probe Ql (Resp) Not detected Normal Not Detected [facility] Comment on above: Order Comment: This assay is an in vitro diagnostic multiplex nucleic acid amplification test for the detection and discrimination of Influenza A & B from nasopharyngeal specimens, and has been validated for use at [facility]. Negative results do not preclude Influenza A/B infections, and should not be used as the sole basis for diagnosis, treatment, or other management decisions. If Influenza A/B and RSV PCR results are negative, testing for Parainfluenza virus, Adenovirus and Metapneumovirus is routinely performed for [facility] pediatric oncology and intensive care inpatients, and is available on other patients by placing an add-on request. Performed By: #### 4 8509-4 #### OPAL Dodson ([id number]) [facility] () [address] [place] [address] FLUBV RNA GINETTE+probe Ql (Resp) Not detected Normal Not Detected [facility] Comment on above: Order Comment: This assay is an in vitro diagnostic multiplex nucleic acid amplification test for the detection and discrimination of Influenza A & B from nasopharyngeal specimens, and has been validated for use at [facility]. Negative results do not preclude Influenza A/B infections, and should not be used as the sole basis for diagnosis, treatment, or other management decisions. If Influenza A/B and RSV PCR results are negative, testing for Parainfluenza virus, Adenovirus and Metapneumovirus is routinely performed for [facility] pediatric oncology and intensive care inpatients, and is available on other patients by placing an add-on request. Performed By: #### 4 8509-4 #### OPAL Dodson ([id number]) [facility] () [address] [place] [address] Natriuretic peptide B [Mass/ Vol]on 03-23-2024 Interpretation and review of laboratory results Normal [facility] Natriuretic peptide B (Bld) [Mass/Vol] 49 pg/mL 0 - 99 pg/mL [facility] <100 pg/mL - Heart f ailure unlikely 100-299 pg/mL - Intermediate probability of acute heart failure exacerbation. Correlate with clinical context and patient history. >=300 pg/mL - Heart Failure likely. Correlate with clinical context and patient history. BNP testing is performed using different testing methodology at [facility]. Direct result comparisons should only be made within the same method. [facility] Natriuretic peptide B (Bld) [Mass/Vol] 49 pg/mL Normal 0-99 [facility] Comment on above: Order Comment: <100 pg/mL - Heart failure unlikely 100-299 pg/mL - Intermediate probability of acute heart failure exacerbation. Correlate with clinical context and patient history. >=300 pg/mL - Heart Failure likely. Correlate with clinical context and patient history. BNP testing is performed using different testing methodology at [facility] than [facility]. Direct result comparisons should only be made within the same method. Performed By: #### 3 0934-4 #### OPAL Dodson ([id number]) [facility] () [address] [place] [address] No Panel Informationon 03-23 [facility] SARS coronavirus 2 RNAon SARS-CoV-2 (COVID-19) RNA GINETTE+probe Ql (Resp) Detected Abnormal Not Detected [facility] Comment on above: Order Comment: This assay has received FDA Emergency Use Authorization (EUA) and is only authorized for the duration of time that circumstances exist to justify the authorization of the emergency use of in vitro diagnostic tests for the detection of SARS-CoV-2 virus and/or diagnosis of COVID-19 infection under section 564(b)(1) of the Act, 21 U.S.C. 360bbb-3(b)(1). This assay is an in vitro diagnostic nucleic acid amplification test for the qualitative detection of SARS-CoV-2 from nasopharyngeal specimens and has been validated for use at [facility]. Negative results do not preclude COVID-19 infections and should not be used as the sole basis for diagnosis, treatment, or other management decisions. Performed By: #### 9 4500-6 #### OPAL Dodson ([id number]) [facility] () [address] [place] [address] SARS-CoV-2 (COVID-19) RNA NA A+probe Ql (Resp)on 09-24-2024 Interpretation and review of laboratory results Abnormal [facility] This assay has recei esther FDA Emergency Use Authorization (EUA) and is only authorized for the duration of time that circumstances exist to justify the authorization of the emergency use of in vitro diagnostic tests for the detection of SARS-CoV-2 virus and/or diagnosis of COVID-19 infection under section 564(b)(1) of the Act, 21 U.S.C. 360bbb-3(b)(1). This assay is an in vitro diagnostic nucleic acid amplification test for the qualitative detection of SARS-CoV-2 from nasopharyngeal specimens and has been validated for use at [facility]. Negative results do not preclude COVID-19 infections and should not be used as the sole basis for diagnosis, treatment, or other management decisions. [facility] Sars-CoV-2 PCRon 03-23-2024 SARS-CoV-2 (COVID-19) RNA GINETTE+probe Ql (Resp) Detected Abnormal Not Detected [facility] Tropinin I.cardiac panel Hig h sensitivity methodon 03-23-2024 Interpretation and review of laboratory results Normal [facility] Less than 99th perce ntile of normal range cutoff- Female and children under 18 years old <14 ng/L; Male <21 ng/L: Negative Repeat testing should be performed if clinically indicated. Female and children under 18 years old 14-50 ng/L; Male 21-50 ng/L: Consistent with possible cardiac damage and possible increased clinical risk. Serial measurements may help to assess extent of myocardial damage. >50 ng/L: Consistent with cardiac damage, increased clinical risk and myocardial infarction. Serial measurements may help assess extent of myocardial damage. NOTE: Children less than 1 year old may have higher baseline troponin levels and results should be interpreted in conjunction with the overall clinical context. NOTE: Troponin I testing is performed using a different testing methodology at [facility] than at other [facility]. Direct result comparisons should only be made within the same method. [facility] Interpretation and review of laboratory results Normal [facility] Less than 99th perce ntile of normal range cutoff- Female and children under 18 years old <14 ng/L; Male <21 ng/L: Negative Repeat testing should be performed if clinically indicated. Female and children under 18 years old 14-50 ng/L; Male 21-50 ng/L: Consistent with possible cardiac damage and possible increased clinical risk. Serial measurements may help to assess extent of myocardial damage. >50 ng/L: Consistent with cardiac damage, increased clinical risk and myocardial infarction. Serial measurements may help assess extent of myocardial damage. NOTE: Children less than 1 year old may have higher baseline troponin levels and results should be interpreted in conjunction with the overall clinical context. NOTE: Troponin I testing is performed using a different testing methodology at [facility] than at other [facility]. Direct result comparisons should only be made within the same method. [facility] Troponin I, High Sensitivity , Initialon 03-23-2024 Tropinin I.cardiac panel High sensitivity method 3 ng/L 0 - 13 ng/L [facility] Troponin I.cardiac panelon 0 03-23-2024 Tropinin I.cardiac panel High sensitivity method 3 ng/L Normal 0-13 [facility] Comment on above: Order Comment: Less than 99th percentile of normal range cutoff- Female and children under 18 years old <14 ng/L; Male <21 ng/L: Negative Repeat testing should be performed if clinically indicated. Female and children under 18 years old 14-50 ng/L; Male 21-50 ng/L: Consistent with possible cardiac damage and possible increased clinical risk. Serial measurements may help to assess extent of myocardial damage. >50 ng/L: Consistent with cardiac damage, increased clinical risk and myocardial infarction. Serial measurements may help assess extent of myocardial damage. NOTE: Children less than 1 year old may have higher baseline troponin levels and results should be interpreted in conjunction with the overall clinical context. NOTE: Troponin I testing is performed using a different testing methodology at [facility] than at other [facility]. Direct result comparisons should only be made within the same method. Performed By: #### 8 9577-1 #### OPAL FERNANDEZ Dodson ([id number]) [facility] ([facility]) [address] [place] [address] Tropinin I.cardiac panel High sensitivity method 3 ng/L Normal 0-13 [facility] Comment on above: Order Comment: Less than 99th percentile of normal range cutoff- Female and children under 18 years old <14 ng/L; Male <21 ng/L: Negative Repeat testing should be performed if clinically indicated. Female and children under 18 years old 14-50 ng/L; Male 21-50 ng/L: Consistent with possible cardiac damage and possible increased clinical risk. Serial measurements may help to assess extent of myocardial damage. >50 ng/L: Consistent with cardiac damage, increased clinical risk and myocardial infarction. Serial measurements may help assess extent of myocardial damage. NOTE: Children less than 1 year old may have higher baseline troponin levels and results should be interpreted in conjunction with the overall clinical context. NOTE: Troponin I testing is performed using a different testing methodology at [facility] than at other [facility]. Direct result comparisons should only be made within the same method. Performed By: #### 8 9577-1 #### OPAL FERNANDEZ Dodson ([id number]) [facility] () [address] [place] [address] Troponin, High Sensitivity, 1 Houron 03-23-2024 Tropinin I.cardiac panel High sensitivity method 3 ng/L 0 - 13 ng/L [facility] XR CHEST 2 VIEWSon 4 XR CHEST 2 VIEWS Interpreted By: Jose Duenas, STUDY: XR CHEST 2 VIEWS; 03/23/2024 6:07 pm INDICATION: Signs/Symptoms:productive cough, eval for pneumonia. COMPARISON: None. ACCESSION NUMBER(S): [id number] ORDERING CLINICIAN: PETER SUE FINDINGS: PA and lateral radiographs of the chest were provided. CARDIOMEDIASTINAL SILHOUETTE: Cardiomediastinal silhouette is normal in size and configuration. LUNGS: There is a region of airspace consolidation noted in the right upper lung concerning for pneumonia. ABDOMEN: No remarkable upper abdominal findings. BONES: No acute osseous changes. IMPRESSION: 1. There is a region of airspace consolidation noted in the right upper lung concerning for pneumonia. MACRO: None Signed by: Jose Kelly 03/23/2024 6:09 PM Dictation workstation: [id number] [facility] XR Chest 2 Viewson 4 1. There is a region of airspace consolidation noted in the right upper lung concerning for pneumonia. MACRO: None Signed by: Jose Kelly 03/23/2024 6:09 PM Dictation workstation: [id number] [facility] Interpreted By: Jose Duenas, STUDY: XR CHEST 2 VIEWS; 03/23/2024 6:07 pm INDICATION: Signs/Symptoms:productive cough, eval for pneumonia. COMPARISON: None. ACCESSION NUMBER(S): [id number] ORDERING CLINICIAN: PETER SUE FINDINGS: PA and lateral radiographs of the chest were provided. CARDIOMEDIASTINAL SILHOUETTE: Cardiomediastinal silhouette is normal in size and configuration. LUNGS: There is a region of airspace consolidation noted in the right upper lung concerning for pneumonia. ABDOMEN: No remarkable upper abdominal findings. BONES: No acute osseous changes. MMODAL Jose Kelly MD - 03/23/2024 Interpreted By: Jose Kelly, STUDY: XR CHEST 2 VIEWS; 03/23/2024 6:07 pm INDICATION: Signs/Symptoms:productive cough, eval for pneumonia. COMPARISON: None. ACCESSION NUMBER(S): [id number] ORDERING CLINICIAN: PETER SUE FINDINGS: PA and lateral radiographs of the chest were provided. CARDIOMEDIASTINAL SILHOUETTE: Cardiomediastinal silhouette is normal in size and configuration. LUNGS: There is a region of airspace consolidation noted in the right upper lung concerning for pneumonia. ABDOMEN: No remarkable upper abdominal findings. BONES: No acute osseous changes. IMPRESSION: 1. There is a region of airspace consolidation noted in the right upper lung concerning for pneumonia. MACRO: None Signed by: Jose Kelly 03/23/2024 6:09 PM Dictation workstation: [id number] [facility] Work Phone: Radiology Study observation (narrative) [facility] Work Phone: XR Chest 2 ViewsOrdered By: Jose Kelly on 03-23-2024 [facility] Work Phone: ED NOTEon 03-19-2024 ED NOTE HNO ID: [id number] Author: DIDIER CASTILLO RN Service: ? Author Type: Registered Nurse Type: ED Notes Filed: 03/19/2024 06:50 Note Text: [facility] called and stated that transportation was set up for the patient and the ETA was between 0700 - 0730. Patient is sitting in the waiting room until arrival. [facility] ED NOTE HNO ID: [id number] Author: DIDIER CASTILLO RN Service: ? Author Type: Registered Nurse Type: ED Notes Filed: 03/19/2024 06:38 Note Text: Patient discharged. Nurse reviewed d/c paperwork and reviewed d/c medications. Patient instructed to follow up with PCP. Nurse answered any questions. Patient verbally agreed. Patient AANDOx3, VSS on RA. Patient stable upon departure. [facility] ED NOTE HNO ID: [id number] Author: DIDIER CASTILLO, JOSE FRANCISCO Service: ? Author Type: Registered Nurse Type: ED Notes Filed: 03/19/2024 06:27 Note Text: This RN spoke with [facility] to set up transportation for the patient. [facility] ED NOTE HNO ID: [id number] Author: DIDIER CASTILLO RN Service: ? Author Type: Registered Nurse Type: ED Notes Filed: 03/19/2024 04:24 Note Text: Pt was BIB EMS from [facility] for c/o flu-like symptoms. Pt states that she has been experiencing chills and a slight cough. Pt is AANDO x 3, with VSS on RA. [facility] ED NOTE HNO ID: [id number] Author: LENIN ECKERT RN Service: ? Author Type: Registered Nurse Type: ED Notes Filed: 03/19/2024 04:18 Note Text: Bed: ED-11 Expected date: 03/19/24 Expected time: 4:07 AM Means of arrival: [place] [facility] ([place]) Comments: [facility] ED PROV NOTEon 03-19-2024 ED PROV NOTE HNO ID: [id number] Author: NILDA MENDES DO Service: Emergency Medicine Author Type: Physician Type: ED Provider Notes Filed: 03/21/2024 00:33 Note Text: ED Provider Note Patient Name: London Velasquez : 1965 SERVICE DATE: 03/19/24 History Patient presents with: Flu Like Symptoms 58-year-old female past medical history DM, HTN presenting with chief complaint of cough, headache, and chills that are typical of her viral infections. Patient states she gets them frequently but when she does they are severe. Her primary concern today is something to alleviate her cough. Her cough is exacerbated whenever she takes a deep breath. No chest pain. PAST MEDICAL HISTORY Diagnosis Date - Depression - Diabetes (HCC) - Hypertension - Sarcoidosis PAST SURGICAL HISTORY Procedure Laterality Date - TONSILLECTOMY HX FAMILY HISTORY Problem Relation Age of Onset - Cancer Sister - Diabetes Sister Social History Tobacco Use - Smoking status: Former - Smokeless tobacco: Never Substance and Sexual Activity - Alcohol use: Not on file - Drug use: Not on file - Sexual activity: Not on file ALLERGIES Allergen Reactions - Tramadol Other: See Comments - Ibuprofen Itching - Naproxen Itching Review of Systems Respiratory: Positive for cough. Physical Exam Vitals [03/19/24 0420] BP Pulse Temp Temp src Resp SpO2 Weight Height 138/71 (!) 116 (!) 39.4 ?C (102.9 ?F) Oral 20 98 % -- -- Physical Exam Vitals and nursing note reviewed. Constitutional: General: She is not in acute distress. Pulmonary: Effort: Pulmonary effort is normal. Breath sounds: Normal breath sounds. Musculoskeletal: Cervical back: Neck supple. Neurological: Mental Status: She is alert and oriented to person, place, and time. Diagnostic Testing ED Labs Ordered and Reviewed COVID AND INFLUENZA A/B AND RSV PCR, EXPEDITED - Normal Narrative: Reference Range (the expected result in uninfected individuals): Not detected Procedures ED Course / Clinical Impression Clinical Impressions as of 03/21/24 0030 Viral upper respiratory infection Acute cough MDM / Disposition / Plan Viral URI. Exam not suggestive of pneumonia. Mild tachycardia consistent with fever. Patient is well-appearing with no signs of respiratory distress. No signs of meningismus. Prescriptions for symptoms sent to preferred pharmacy. Return precautions discussed. Stable for discharge. Differential Diagnoses - Viral URI is more likely for the following reason(s): Consistent with HANDP and exam - Meningitis is less likely for the following reason(s): Not consistent with exam - Pneumonia is less likely for the following reason(s): Not consistent with exam SIGNATURE: DO Brad Perez ABRAHAM 03/21/24 0033 Normal [facility] Automated basophil %Ordered By: Rishi Abel on 01-29-2024 Basophils/100 WBC (Bld) 1.1 % Normal . [facility] Comment on above: Performed By: #### B IOFIRECOVNOTDE, RESP PANEL UPP. #### [address] Automated basophil countOrde red By: Rishi Abel on 01-29-2024 Basophils (Bld) [#/Vol] 0.2 10*3/uL Normal 0.0-0.2 [facility] Comment on above: Result Comment: PERF ORMED BY: [place] [address] PATHOLOGIST CRANE OPERATOR DAYANA MONTES M.D. Performed By: #### B IOFIRECOVNOTDE, RESP PANEL UPP. #### [address] Automated blood monocyte cou ntOrdered By: Rishi Abel on 01-29-2024 Monocytes (Bld) [#/Vol] 1.1 10*3/uL High 0.0-0.8 [facility] Comment on above: Performed By: #### B IOFIRECOVNOTDE, RESP PANEL UPP. #### [address] Automated eosinophil %Ordere d By: Rishi Abel on 01-29-2024 Eosinophils/100 WBC (Bld) 0.6 % Normal . [facility] Comment on above: Performed By: #### B IOFIRECOVNOTDE, RESP PANEL UPP. #### [address] Automated eosinophil countOr dered By: Rishi Abel on 01-29-2024 Eosinophils (Bld) [#/Vol] 0.1 10*3/uL Normal 0.0-0.45 [facility] Comment on above: Performed By: #### B IOFIRECOVNOTDE, RESP PANEL UPP. #### [address] Automated monocyte %Ordered By: Rishi Abel on 01-29-2024 Monocytes/100 WBC (Bld) 7.0 % Normal . [facility] Comment on above: Performed By: #### B IOFIRECOVNOTDE, RESP PANEL UPP. #### [address] Automated neutrophil %Ordere d By: Rishi Abel on 01-29-2024 Neutrophils/100 WBC (Bld) 61.5 % Normal . [facility] Comment on above: Performed By: #### B IOFIRECOVNOTDE, RESP PANEL UPP. #### [address] Basic Metabolic Panelon 08-0 Creatinine Clr Calc Pharmacy 74.90 Normal [facility] Comment on above: Result Comment: PERF ORMED BY: [place] [address] PATHOLOGIST CRANE OPERATOR DAYANA MONTES M.D. Performed By: #### B IOFIRECOVNOTDE, RESP PANEL UPP. #### [address] GFR/1.73 sq M.predicted MDRD (S/P/Bld) [Vol rate/Area] mL/min/{1.73_m2} Normal [facility] Comment on above: Performed By: #### B IOFIRECOVNOTDE, RESP PANEL UPP. #### [address] abdomen pelvis w conon CT abdomen pelvis w con [facility] Main [place] [address] [place] [address] CT Scan Report Signed Patient: London Velasquez MR#: [id number] : 1965 Acct:[id number] Age/Sex: 58 / F ADM Date: 01/29/24 Loc: ER Room: Type: [facility] ER Attending Dr: Copies to: Rishi Abel Jr, MD Ordering Provider: Rishi Abel Jr, MD Date of Service: 01/29/24 CT/CT abdomen pelvis w con: RLQ pain, leukocytosis, BRBPR CT Abdomen and Pelvis withcontrast TECHNIQUE: Axial imaging with 2-D reconstruction.90 cc of Isovue-300. The CT exam was performed using one or more the following dose reduction techniques: Automated exposure control, adjustment of the MA and/or Kv according to patient size, or use of the iterative reconstruction technique. COMPARISON: 12/22/2023 History: Right-sided abdominal pain with radiation to back. One month duration. Rectal bleeding today. LIMITATIONS: None LOWER THORAX Unremarkable LIVER: Unremarkable GALLBLADDER: Cholecystectomy clips identified. BILE DUCTS: No dilatation SPLEEN: Unremarkable PANCREAS: Unremarkable ADRENAL GLANDS: Unremarkable KIDNEYS:Nonobstructing 5 mm stone inferior pole right kidney. No obstructive uropathy. Tiny bilateral renal cysts. AORTA: No abdominal aortic aneurysm identified. Atherosclerosis. RETROPERITONEUM: No significant retroperitoneal abnormalities identified. MESENTERY:Unremarkable SMALL BOWEL: The small bowel loops are nondistended. APPENDIX: The appendix is normal. COLON: Mild constipation URINARY BLADDER: Urinary bladder is unremarkable. REPRODUCTIVE SYSTEM: Reproductive structures are unremarkable. PNEUMOPERITONEUM: None PERITONEAL FLUID:None BONY STRUCTURES: Degenerative change greatest at the L4-5 level. ABDOMINAL WALL: Unremarkable CT/CT abdomen pelvis w con IMPRESSION: No acute findings. Normal appendix. Mild constipation. Impression dictated by: Stephan Wilson M.D.01/29/2024 8:24 AM Dictation Location: [place] [address] Transcribed By: [facility] 01/29/24823 Dictated By: Stephan Wilson DO 01/29/24818 Signed By: 01/29/24823 Normal [facility] Calcium [Mass/volume] in Ser um or PlasmaOrdered By: Rishi Abel on 01-29-2024 Calcium [Mass/Vol] 9.1 mg/dL Normal 8.6-10.3 [facility] Comment on above: Performed By: #### B IOFIRECOVNOTDE, RESP PANEL UPP. #### [facility] [address] Carbon dioxide, total [Moles /volume] in Serum or PlasmaOrdered By: Rishi Abel on 01-29-2024 CO2 [Moles/Vol] 23.4 mmol/L Normal 21.0-31.0 [facility] Comment on above: Performed By: #### B IOFIRECOVNOTDE, RESP PANEL UPP. #### [address] Chloride [Moles/volume] in S lily or PlasmaOrdered By: Rishi Abel on 01-29-2024 Chloride [Moles/Vol] 106 mmol/L Normal 98-107 [facility] Comment on above: Performed By: #### B IOFIRECOVNOTDE, RESP PANEL UPP. #### [address] Complete Blood Count Auto Di ffon 01-29-2024 Mean Corpuscular HGB Conc 33.2 g/dL Normal 32.0-35.0 [facility] Comment on above: Performed By: #### B IOFIRECOVNOTDE, RESP PANEL UPP. #### [address] Monocytes/100 WBC (Bld) 16.46 % Normal 0.00-20.00 [facility] Comment on above: Performed By: #### B IOFIRECOVNOTDE, RESP PANEL UPP. #### [address] NRBC% 0.2 /100{WBC} Normal 0-0.5 [facility] Comment on above: Performed By: #### B IOFIRECOVNOTDE, RESP PANEL UPP. #### [address] Creatinine [Mass/volume] in Serum or PlasmaOrdered By: Rishi Abel on 01-29-2024 Creatinine [Mass/Vol] 0.93 mg/dL Normal 0.60-1.20 [facility] Comment on above: Performed By: #### B IOFIRECOVNOTDE, RESP PANEL UPP. #### [address] ECG 12 lead ECGon 01-29-2024 ECG 12 lead ECG [facility] [place] [address] [place] [address] Electrocardiograph Report Signed Patient: London Velasquez MR#: [id number] 345 : 1965 Acct:[id number] Age/Sex: 58 / F ADM Date: 01/29/24 Loc: ER Room: Type: [facility] ER Attending Dr: Ordering Provider: Rishi Abel Jr, MD Date of Service: 01/29/2407/23/412 ECG/ECG 12 lead ECG: Abdominal Pain Copies to: Test Reason : Blood Pressure : 185/104 mmHG Vent. Rate : 94 BPM Atrial Rate : 94 BPM P-R Int : 160 ms QRS Dur : 84 ms QT Int : 366 ms P-R-T Axes : 67 -5 68 degrees QTcB Int : 457 ms Sinus rhythm Possible Left atrial enlargement Low voltage QRS Cannot rule out Anterior infarct (cited on or before 16-Oct-2021) Abnormal ECG When compared with ECG of 22-Dec-2021 06:24, Criteria for Inferior infarct are no longer present Confirmed by TAMIKA RUDD FACC, PITER ([id number]) on 01/30/2024 11:42:10 AM Referred By: Electronically Signed By: PITER LUNDBERG MD FAC Transcribed By: MUS Signed By Piter Lundberg MD, FACC 01/30/24 1142 Normal [facility] Erythrocyte distribution wid th [Ratio] by Automated countOrdered By: Rishi Abel on 01-29-2024 Erythrocyte distribution width (RBC) [Ratio] 15.1 % Normal 11.9-15.3 [facility] Comment on above: Performed By: #### B IOFIRECOVNOTDE, RESP PANEL UPP. #### [facility] [address] [place] [address] [place] Erythrocytes [#/volume] in B lood by Automated countOrdered By: iRshi Abel on 01-29-2024 RBC (Bld) [#/Vol] 3.89 10*6/uL Normal 3.60-5.00 [facility] Comment on above: Performed By: #### B IOFIRECOVNOTDE, RESP PANEL UPP. #### [facility] [address] [place] [address] [place] Glucose [Mass/volume] in Ser um or PlasmaOrdered By: Rishi Abel on 01-29-2024 Glucose [Mass/Vol] 124 mg/dL High 70-100 [facility] Comment on above: ADA recommended refe rence rangeRandom Glucose Reference Range is dependent on time and content of last meal. Glucose of more than 200 mg/dL in a nonstressed, ambulatory subject supports the diagnosis of Diabetes Mellitus. Result Comment: [place] Glucose Reference Range is dependent on time and content of last meal. Glucose of more than 200 mg/dL in a nonstressed, ambulatory subject supports the diagnosis of Diabetes Mellitus. ADA recommended reference range Performed By: #### B IOFIRECOVNOTDE, RESP PANEL UPP. #### [address] Hematocrit [Volume Fraction] of Blood by Automated countOrdered By: Rishi Abel on 01-29-2024 Hematocrit (Bld) [Volume fraction] 36.9 % Normal 34.0-46.4 [facility] Comment on above: Performed By: #### B IOFIRECOVNOTDE, RESP PANEL UPP. #### [address] Hemoglobin [Mass/volume] in BloodOrdered By: Rishi Abel on 01-29-2024 Hemoglobin (Bld) [Mass/Vol] 12.3 g/dL Normal 11.8-15.4 [facility] Comment on above: Performed By: #### B IOFIRECOVNOTDE, RESP PANEL UPP. #### [address] Leukocytes [#/volume] correc alyse for nucleated erythrocytes in Blood by Automated counOrdered By: Rishi Abel on 01-29-2024 WBC corrected for nucl RBC Auto (Bld) [#/Vol] 15.8 10*3/uL High 3.8-11.6 [facility] Leukocytes [#/volume] in Blo od by Automated countOrdered By: Rishi Abel on 01-29-2024 WBC (Bld) [#/Vol] 15.8 10*3/uL High 3.8-11.6 [facility] Comment on above: Performed By: #### B IOFIRECOVNOTDE, RESP PANEL UPP. #### [place] [address] [place] Lymphocytes [#/volume] in Bl ood by Automated countOrdered By: Rishi Abel on 01-29-2024 Lymphocytes (Bld) [#/Vol] 4.7 10*3/uL Normal 1.00-4.8 [facility] Comment on above: Performed By: #### B IOFIRECOVNOTDE, RESP PANEL UPP. #### [facility] [address] Lymphocytes/100 leukocytes i n Blood by Automated countOrdered By: Rishi Abel on 01-29-2024 Lymphocytes/100 WBC (Bld) 29.8 % Normal . [facility] Comment on above: Performed By: #### B IOFIRECOVNOTDE, RESP PANEL UPP. #### [facility] [address] MCH [Entitic mass] by Automa alyse countOrdered By: Rishi Abel on 01-29-2024 MCH (RBC) [Entitic mass] 31.5 pg Normal 24.7-34.3 [facility] Comment on above: Performed By: #### B IOFIRECOVNOTDE, RESP PANEL UPP. #### [facility] [address] MCHC Auto (RBC) [Mass/Vol]Or dered By: Rishi Abel on 01-29-2024 MCHC (RBC) [Mass/Vol] 33.2 g/dL 32.0-35.0 [facility] MCV [Entitic volume] by Auto mated countOrdered By: Rishi Abel on 01-29-2024 MCV (RBC) [Entitic vol] 94.8 fL Normal 80-100 [facility] Comment on above: Performed By: #### B IOFIRECOVNOTDE, RESP PANEL UPP. #### [facility] [address] Monocyte distribution width [Entitic volume] in Blood by AutomatedOrdered By: Rishi Abel on 01-29-2024 Monocyte distribution width Auto (Bld) [Entitic vol] 16.46 % 0.00-20.00 [facility] Neutrophils [#/volume] in Bl ood by Automated countOrdered By: Rishi Abel on 01-29-2024 Neutrophils (Bld) [#/Vol] 9.7 10*3/uL High 1.8-7.7 [facility] Comment on above: Performed By: #### B IOFIRECOVNOTDE, RESP PANEL UPP. #### [address] No Panel InformationOrdered By: Rishi Abel on 01-29-2024 Estimated GFR (CKD-EPI) > 60.0 mL/Min [facility] Creatinine Clearance (Chem 74.90 [facility] Nucleated erythrocytes [Pres ence] in Blood by Automated countOrdered By: Rishi Abel on 01-29-2024 Nucleated RBC Auto Ql (Bld) 0.2 /100{WBC} 0-0.5 [facility] Platelet mean volume [Entiti c volume] in Blood by Automated countOrdered By: Rishi Abel on 01-29-2024 Platelet mean volume (Bld) [Entitic vol] 8.9 fL Normal 6.3-10.7 [facility] Comment on above: Performed By: #### B IOFIRECOVNOTDE, RESP PANEL UPP. #### [address] Platelets [#/volume] in Bloo d by Automated countOrdered By: Rishi Abel on 01-29-2024 Platelets (Bld) [#/Vol] 350 10*3/uL Normal 150-450 [facility] Comment on above: Performed By: #### B IOFIRECOVNOTDE, RESP PANEL UPP. #### [address] Potassium [Moles/volume] in Serum or PlasmaOrdered By: Rishi Aebl on 01-29-2024 Potassium [Moles/Vol] 4.4 mmol/L Normal 3.5-5.1 [facility] Comment on above: Hemolysis is present at a level that could interfere with the result.Contact lab if redraw is required Result Comment: Hemo lysis is present at a level that could interfere with the result. Contact lab if redraw is required Performed By: #### B IOFIRECOVNOTDE, RESP PANEL UPP. #### [address] Serum or plasma anion gap de terminationOrdered By: Rishi Abel on 01-29-2024 Anion gap [Moles/Vol] 12.0 mmol/L Normal 6.0-15.0 [facility] [place] [facility] Comment on above: Performed By: #### B IOFIRECOVNOTDE, RESP PANEL UPP. #### [facility] [address] [place] [address] [place] Sodium [Moles/volume] in Ser um or PlasmaOrdered By: Rishi Abel on 01-29-2024 Sodium [Moles/Vol] 137 mmol/L Normal 136-145 [facility] Comment on above: Performed By: #### B IOFIRECOVNOTDE, RESP PANEL UPP. #### [facility] [address] [place] [address] [place] Urea nitrogen [Mass/volume] in Serum or PlasmaOrdered By: Rishi Abel on 01-29-2024 Urea nitrogen [Mass/Vol] 8 mg/dL Normal 7-25 [facility] Comment on above: Performed By: #### B IOFIRECOVNOTDE, RESP PANEL UPP. #### [place] [address] [place] Alanine aminotransferase [En zymatic activity/volume] in Serum or PlasmaOrdered By: Anders Umana on 12-22-2023 ALT [Catalytic activity/Vol] 28 U/L Normal 7-52 [facility] Comment on above: Performed By: #### H SCRP, CK, CMP, CBC, FE and TIBC, LIPID #### [facility] [address] [place] [address] [place] Albumin [Mass/volume] in Ser um or Plasma by Bromocresol green (BCG) dye binding methoOrdered By: Anders Umana on 12-22-2023 Albumin BCG dye [Mass/Vol] 4.2 g/dL 3.5-5.7 [facility] Alkaline phosphatase [Enzyma tic activity/volume] in Serum or PlasmaOrdered By: Anders Umana on 12-22-2023 ALP [Catalytic activity/Vol] 71 U/L Normal 34-104 [facility] Comment on above: Performed By: #### H SCRP, CK, CMP, CBC, FE and TIBC, LIPID #### [address] Aspartate aminotransferase [ Enzymatic activity/volume] in Serum or PlasmaOrdered By: Anders Umana on 12-22-2023 AST [Catalytic activity/Vol] 31 U/L Normal 13-39 [facility] Comment on above: Performed By: #### H SCRP, CK, CMP, CBC, FE and TIBC, LIPID #### [address] Automated basophil %Ordered By: Anders Umana on 12-22-2023 Basophils/100 WBC (Bld) 0.2 % Normal . [facility] Comment on above: Performed By: #### H SCRP, CK, CMP, CBC, FE and TIBC, LIPID #### [address] Automated basophil countOrde red By: Anders Umana on 12-22-2023 Basophils (Bld) [#/Vol] 0.0 10*3/uL Normal 0.0-0.2 [facility] Comment on above: Result Comment: PERF ORMED BY: [place] [address] PATHOLOGIST CRANE OPERATOR DAYANA MONTES M.D. Performed By: #### H SCRP, CK, CMP, CBC, FE and TIBC, LIPID #### [address] Automated blood monocyte cou ntOrdered By: Anders Umana on 12-22-2023 Monocytes (Bld) [#/Vol] 0.6 10*3/uL Normal 0.0-0.8 [facility] Comment on above: Performed By: #### H SCRP, CK, CMP, CBC, FE and TIBC, LIPID #### [address] Automated eosinophil %Ordere d By: Anders Umana on 12-22-2023 Eosinophils/100 WBC (Bld) 1.9 % Normal . [facility] Comment on above: Performed By: #### H SCRP, CK, CMP, CBC, FE and TIBC, LIPID #### [facility] [address] Automated eosinophil countOr dered By: Anders Umana on 12-22-2023 Eosinophils (Bld) [#/Vol] 0.1 10*3/uL Normal 0.0-0.45 [facility] Comment on above: Performed By: #### H SCRP, CK, CMP, CBC, FE and TIBC, LIPID #### [address] Automated monocyte %Ordered By: Anders Umana on 12-22-2023 Monocytes/100 WBC (Bld) 7.7 % Normal . [facility] Comment on above: Performed By: #### H SCRP, CK, CMP, CBC, FE and TIBC, LIPID #### [address] Automated neutrophil %Ordere d By: Anders Umana on 12-22-2023 Neutrophils/100 WBC (Bld) 61.2 % Normal . [facility] Comment on above: Performed By: #### H SCRP, CK, CMP, CBC, FE and TIBC, LIPID #### [address] Bacteria [Presence] in Urine by AutomatedOrdered By: Anders Umana on 12-22-2023 Bacteria Auto Ql (U) None seen [HPF] None Seen [facility] Basic Metabolic Panelon 11-29 Creatinine Clr Calc Pharmacy 75.53 Normal [facility] Comment on above: Performed By: #### H SCRP, CK, CMP, CBC, FE and TIBC, LIPID #### [address] GFR/1.73 sq M.predicted MDRD (S/P/Bld) [Vol rate/Area] mL/min/{1.73_m2} Normal [facility] Comment on above: Performed By: #### H SCRP, CK, CMP, CBC, FE and TIBC, LIPID #### [place] [address] [place] Bilirubin Test strip Ql (U)O rdered By: Anders Umana on 12-22-2023 Bilirubin Ql (U) Negative Negative [facility] Bilirubin.direct [Mass/volum e] in Serum or PlasmaOrdered By: Anders Umana on 12-22-2023 Bilirubin.direct [Mass/Vol] 0.00 mg/dL Low 0.03-0.18 [facility] Comment on above: If the DBIL is less than 0.1, IBIL is not able to becalculated. Bilirubin.total [Mass/volume ] in Serum or PlasmaOrdered By: Anders Umana on 12-22-2023 Bilirubin [Mass/Vol] 0.2 mg/dL Low 0.3-1.0 [facility] Comment on above: Performed By: #### H SCRP, CK, CMP, CBC, FE and TIBC, LIPID #### [facility] [address] abdomen pelvis w conon CT abdomen pelvis w con [facility] [place] [address] [place] [address] CT Scan Report Signed Patient: London Velasquez MR#: [id number] 345 : 1965 Acct:[id number] Age/Sex: 58 / F ADM Date: 12/22/23 Loc: ER Room: Type: [facility] ER Attending Dr: Copies to: Anders Umana PA-C Ordering Provider: Anders Umana PA-C Date of Service: 12/22/23 CT/CT abdomen pelvis w con: Abdominal Pain CT Abdomen and Pelvis withcontrast TECHNIQUE: Axial imaging with 2-D reconstruction.90 cc of Isovue-300. The CT exam was performed using one or more the following dose reduction techniques: Automated exposure control, adjustment of the MA and/or Kv according to patient size, or use of the iterative reconstruction technique. COMPARISON: 09/11/23 History: Abdominal pain. Diarrhea. Incontinence. LIMITATIONS: None LOWER THORAX Unremarkable LIVER: Unremarkable GALLBLADDER: Cholecystectomy clips identified. BILE DUCTS: No dilatation SPLEEN: Unremarkable PANCREAS: Unremarkable ADRENAL GLANDS: Unremarkable KIDNEYS:Cystic changes of the RIGHT kidney redemonstrated. 4 mm stone inferior pole RIGHT kidney unchanged. AORTA: No abdominal aortic aneurysm identified. Atherosclerosis RETROPERITONEUM: No significant retroperitoneal abnormalities identified. MESENTERY:Unremarkable SMALL BOWEL: The small bowel loops are nondistended. APPENDIX: The appendix is normal. COLON: Fluid in distal colon consistent with diarrheal illness. No significant wall thickening. No obstruction. No adjacent inflammation. URINARY BLADDER: Urinary bladder is unremarkable. REPRODUCTIVE SYSTEM: Reproductive structures are unremarkable. PNEUMOPERITONEUM: None PERITONEAL FLUID:None BONY STRUCTURES: Similar degeneration ABDOMINAL WALL: Unremarkable CT/CT abdomen pelvis w con IMPRESSION: No bowel obstruction. Findings consistent with diarrheal illness. Otherwise no acute abdominal or pelvic findings. Similar RIGHT nephrolithiasis. Impression dictated by: Stephan Wilson M.D.12/22/2023 4:59 PM Dictation Location: [place] [address] Transcribed By: [facility] 12/22/231658 Dictated By: Stephan Wilson DO 12/22/231654 Signed By: 12/22/231658 Normal [facility] Calcium [Mass/volume] in Ser um or PlasmaOrdered By: Anders Umana on 12-22-2023 Calcium [Mass/Vol] 8.9 mg/dL Normal 8.6-10.3 [facility] Comment on above: Performed By: #### H SCRP, CK, CMP, CBC, FE and TIBC, LIPID #### [facility] [address] Carbon dioxide, total [Moles /volume] in Serum or PlasmaOrdered By: Anders Umana on 12-22-2023 CO2 [Moles/Vol] 18.4 mmol/L Low 21.0-31.0 [facility] Comment on above: Performed By: #### H SCRP, CK, CMP, CBC, FE and TIBC, LIPID #### [facility] [address] [place] [id number] [place] Chloride [Moles/volume] in S lily or PlasmaOrdered By: Anders Umana on 12-22-2023 Chloride [Moles/Vol] 114 mmol/L High 98-107 [facility] Comment on above: Performed By: #### H SCRP, CK, CMP, CBC, FE and TIBC, LIPID #### [address] Color of Urine by AutoOrdere d By: Anders Umana on 12-22-2023 Color (U) Colorless Normal Yellow [facility] Comment on above: Order Comment: Name Collection Type:: Clean-Voided Midstream Performed By: #### B IOFIRECOVNOTDE, RESP PANEL UPP. #### [address] Complete Blood Count Auto Di ffon 12-22-2023 Mean Corpuscular HGB Conc 32.7 g/dL Normal 32.0-35.0 [facility] Comment on above: Performed By: #### H SCRP, CK, CMP, CBC, FE and TIBC, LIPID #### [address] Monocytes/100 WBC (Bld) 18.81 % Normal 0.00-20.00 [facility] Comment on above: Performed By: #### H SCRP, CK, CMP, CBC, FE and TIBC, LIPID #### [address] NRBC% 0.1 /100{WBC} Normal 0-0.5 [facility] Comment on above: Performed By: #### H SCRP, CK, CMP, CBC, FE and TIBC, LIPID #### [address] Creatinine [Mass/volume] in Serum or PlasmaOrdered By: Anders Umana on 12-22-2023 Creatinine [Mass/Vol] 0.92 mg/dL Normal 0.60-1.20 [facility] Comment on above: Performed By: #### H SCRP, CK, CMP, CBC, FE and TIBC, LIPID #### [address] Dipstick and Microscopicon 0 12-22-2023 Bacteria,Urine None Seen Normal None Seen [facility] Comment on above: Order Comment: Name Collection Type:: Clean-Voided Midstream Performed By: #### B IOFIRECOVNOTDE, RESP PANEL UPP. #### [place] [address] [place] Bilirubin,Urine Negative Normal Negative [facility] Comment on above: Order Comment: Name Collection Type:: Clean-Voided Midstream Performed By: #### B IOFIRECOVNOTDE, RESP PANEL UPP. #### [address] Glucose Ql (U) Normal Normal Normal [facility] Comment on above: Order Comment: Name Collection Type:: Clean-Voided Midstream Performed By: #### B IOFIRECOVNOTDE, RESP PANEL UPP. #### [place] [address] [place] Hyaline Casts,Urine None Normal 0-8 [facility] Comment on above: Order Comment: Name Collection Type:: Clean-Voided Midstream Result Comment: PERF ORMED BY: [place] [address] PATHOLOGIST CRANE OPERATOR DAYANA MONTES M.D. Performed By: #### B IOFIRECOVNOTDE, RESP PANEL UPP. #### [place] [address] [place] Nitrite,Urine Negative Normal Negative [facility] Comment on above: Order Comment: Name Collection Type:: Clean-Voided Midstream Performed By: #### B IOFIRECOVNOTDE, RESP PANEL UPP. #### [place] [address] [place] Occult Blood,Urine Negative Normal Negative [facility] Comment on above: Order Comment: Name Collection Type:: Clean-Voided Midstream Result Comment: PERF ORMED BY: [place] [address] PATHOLOGIST CRANE OPERATOR DAYANA MONTES M.D. Performed By: #### B IOFIRECOVNOTDE, RESP PANEL UPP. #### [place] [address] [place] Protein,Urine Negative Normal Negative [facility] Comment on above: Order Comment: Name Collection Type:: Clean-Voided Midstream Performed By: #### B IOFIRECOVNOTDE, RESP PANEL UPP. #### [address] RBC,Urine 1-2 Normal 0-4 [facility] Comment on above: Order Comment: Name Collection Type:: Clean-Voided Midstream Performed By: #### B IOFIRECOVNOTDE, RESP PANEL UPP. #### [address] Specificy Kirk,Urine 1.029 Normal 1.00 1-1.03 0 [facility] Comment on above: Order Comment: Name Collection Type:: Clean-Voided Midstream Performed By: #### B IOFIRECOVNOTDE, RESP PANEL UPP. #### [address] Squamous Epithelial Cell,Urine 1-2 Normal 0-2 [facility] Comment on above: Order Comment: Name Collection Type:: Clean-Voided Midstream Performed By: #### B IOFIRECOVNOTDE, RESP PANEL UPP. #### [address] Urobilinogen,Urine Normal Normal Normal [facility] Comment on above: Order Comment: Name Collection Type:: Clean-Voided Midstream Performed By: #### B IOFIRECOVNOTDE, RESP PANEL UPP. #### [address] WBC,Urine 1-2 Normal 0-4 [facility] Comment on above: Order Comment: Name Collection Type:: Clean-Voided Midstream Performed By: #### B IOFIRECOVNOTDE, RESP PANEL UPP. #### [address] Epithelial cells.squamous [# /area] in Urine sediment by Automated countOrdered By: Anders Umana on 12-22-2023 Epithelial cells.squamous Auto (Urine sed) [#/Area] 1-2 [HPF] 0-2 [facility] Erythrocyte distribution wid th [Ratio] by Automated countOrdered By: Anders Umana on 12-22-2023 Erythrocyte distribution width (RBC) [Ratio] 16.1 % High 11.9-15.3 [facility] Comment on above: Performed By: #### H SCRP, CK, CMP, CBC, FE and TIBC, LIPID #### [facility] [address] Erythrocytes [#/area] in Uri ne sediment by Automated countOrdered By: Anders Umana on 12-22-2023 RBC Auto (Urine sed) [#/Area] 1-2 [HPF] 0-4 [facility] Erythrocytes [#/volume] in B lood by Automated countOrdered By: Anders Umana on 12-22-2023 RBC (Bld) [#/Vol] 3.99 10*6/uL Normal 3.60-5.00 [facility] Comment on above: Performed By: #### H SCRP, CK, CMP, CBC, FE and TIBC, LIPID #### [facility] [address] Glucose [Mass/volume] in Ser um or PlasmaOrdered By: Anders Umana on 12-22-2023 Glucose [Mass/Vol] 103 mg/dL High 70-100 [facility] Comment on above: ADA recommended refe rence rangeRandom Glucose Reference Range is dependent on time and content of last meal. Glucose of more than 200 mg/dL in a nonstressed, ambulatory subject supports the diagnosis of Diabetes Mellitus. Result Comment: [place] om Glucose Reference Range is dependent on time and content of last meal. Glucose of more than 200 mg/dL in a nonstressed, ambulatory subject supports the diagnosis of Diabetes Mellitus. ADA recommended reference range Performed By: #### H SCRP, CK, CMP, CBC, FE and TIBC, LIPID #### [facility] [address] [place] [id number] [place] Glucose [Mass/volume] in Uri ne by Test stripOrdered By: Anders Umana on 12-22-2023 Glucose Test strip (U) [Mass/Vol] Normal mg/dL Normal [facility] Hematocrit [Volume Fraction] of Blood by Automated countOrdered By: Anders Umana on 06-24-2024 Hematocrit (Bld) [Volume fraction] 38.2 % Normal 34.0-46.4 [facility] Comment on above: Performed By: #### H SCRP, CK, CMP, CBC, FE and TIBC, LIPID #### [facility] [address] Hemoglobin Test strip Ql (U) Ordered By: Anders Umana on 12-22-2023 Hemoglobin Ql (U) Negative Negative [facility] Hemoglobin [Mass/volume] in BloodOrdered By: Anders Umana on 12-22-2023 Hemoglobin (Bld) [Mass/Vol] 12.5 g/dL Normal 11.8-15.4 [facility] Comment on above: Performed By: #### H SCRP, CK, CMP, CBC, FE and TIBC, LIPID #### [address] Hepatic Panelon 12-22-2023 Albumin [Mass/Vol] 4.2 g/dL Normal 3.5-5.7 [facility] Comment on above: Performed By: #### H SCRP, CK, CMP, CBC, FE and TIBC, LIPID #### [address] Bilirubin,Indirect 0.2 mg/dL Normal [facility] Comment on above: Performed By: #### H SCRP, CK, CMP, CBC, FE and TIBC, LIPID #### [address] Bilirubin.indirect [Mass/Vol] 0.00 mg/dL Low 0.03-0.18 [facility] Comment on above: Result Comment: If t he DBIL is less than 0.1, IBIL is not able to be calculated. Performed By: #### H SCRP, CK, CMP, CBC, FE and TIBC, LIPID #### [address] Hyaline casts [#/area] in Ur ine sediment by Automated countOrdered By: Anders Umana on 12-22-2023 Hyaline casts Auto (Urine sed) [#/Area] None [LPF] 0-8 [facility] Ketones [Presence] in Urine by Test stripOrdered By: Anders Umana on 12-22-2023 Ketones Ql (U) Negative Normal Negative [facility] Comment on above: Order Comment: Name Collection Type:: Clean-Voided Midstream Performed By: #### B IOFIRECOVNOTDE, RESP PANEL UPP. #### [facility] [address] [place] [address] [place] Leukocyte esterase [Presence ] in Urine by Test stripOrdered By: Anders Umana on 12-22-2023 Leukocyte esterase Test strip Ql (U) 1+ High Negative [facility] Comment on above: Order Comment: Name Collection Type:: Clean-Voided Midstream Performed By: #### B IOFIRECOVNOTDE, RESP PANEL UPP. #### [facility] [address] [place] [address] [place] Leukocytes [#/area] in Urine sediment by Automated countOrdered By: Anders Umana on 12-22-2023 WBC Auto (Urine sed) [#/Area] 1-2 [HPF] 0-4 [facility] Leukocytes [#/volume] correc alyse for nucleated erythrocytes in Blood by Automated counOrdered By: Anders Umana on 12-22-2023 WBC corrected for nucl RBC Auto (Bld) [#/Vol] 7.4 10*3/uL 3.8-11.6 [facility] Leukocytes [#/volume] in Blo od by Automated countOrdered By: Anders Umana on 12-22-2023 WBC (Bld) [#/Vol] 7.4 10*3/uL Normal 3.8-11.6 [facility] Comment on above: Performed By: #### H SCRP, CK, CMP, CBC, FE and TIBC, LIPID #### [facility] [address] [place] [address] [place] Lipase [Enzymatic activity/v olume] in Serum or PlasmaOrdered By: Anders Umana on 12-22-2023 Lipase [Catalytic activity/Vol] 19.0 U/L Normal 11.0-82.0 [facility] Comment on above: Result Comment: PERF ORMED BY: [address] [place] [address] PATHOLOGIST CRANE OPERATOR DAYANA MONTES M.D. Performed By: #### H SCRP, CK, CMP, CBC, FE and TIBC, LIPID #### [address] Lymphocytes [#/volume] in Bl ood by Automated countOrdered By: Anders Umana on 12-22-2023 Lymphocytes (Bld) [#/Vol] 2.1 10*3/uL Normal 1.00-4.8 [facility] Comment on above: Performed By: #### H SCRP, CK, CMP, CBC, FE and TIBC, LIPID #### [address] Lymphocytes/100 leukocytes i n Blood by Automated countOrdered By: Anders Umana on 12-22-2023 Lymphocytes/100 WBC (Bld) 29.0 % Normal . [facility] Comment on above: Performed By: #### H SCRP, CK, CMP, CBC, FE and TIBC, LIPID #### [address] MCH [Entitic mass] by Automa alyse countOrdered By: Anders Umana on 12-22-2023 MCH (RBC) [Entitic mass] 31.3 pg Normal 24.7-34.3 [facility] Comment on above: Performed By: #### H SCRP, CK, CMP, CBC, FE and TIBC, LIPID #### [address] MCHC Auto (RBC) [Mass/Vol]Or dered By: Anders Umana on 12-22-2023 MCHC (RBC) [Mass/Vol] 32.7 g/dL 32.0-35.0 [facility] MCV [Entitic volume] by Auto mated countOrdered By: Anders Umana on 12-22-2023 MCV (RBC) [Entitic vol] 95.7 fL Normal 80-100 F [facility] Comment on above: Performed By: #### H SCRP, CK, CMP, CBC, FE and TIBC, LIPID #### [facility] [address] [place] [address] [place] Monocyte distribution width [Entitic volume] in Blood by AutomatedOrdered By: Anders Umana on 12-22-2023 Monocyte distribution width Auto (Bld) [Entitic vol] 18.81 % 0.00-20.00 [facility] Neutrophils [#/volume] in Bl ood by Automated countOrdered By: Anders Umana on 12-22-2023 Neutrophils (Bld) [#/Vol] 4.5 10*3/uL Normal 1.8-7.7 [facility] Comment on above: Performed By: #### H SCRP, CK, CMP, CBC, FE and TIBC, LIPID #### [facility] [address] Nitrite Test strip Ql (U)Ord ered By: Anders Umana on 12-22-2023 Nitrite Ql (U) Negative Negative [facility] No Panel InformationOrdered By: Anders Umana on 12-22-2023 Estimated GFR (CKD-EPI) > 60.0 mL/Min [facility] Creatinine Clearance (Chem 75.53 [facility] Nucleated erythrocytes [Pres ence] in Blood by Automated countOrdered By: Anders Umana on 12-22-2023 Nucleated RBC Auto Ql (Bld) 0.1 /100{WBC} 0-0.5 [facility] Platelet mean volume [Entiti c volume] in Blood by Automated countOrdered By: Anders Umana on 12-22-2023 Platelet mean volume (Bld) [Entitic vol] 9.3 fL Normal 6.3-10.7 [facility] Comment on above: Performed By: #### H SCRP, CK, CMP, CBC, FE and TIBC, LIPID #### [facility] [address] [place] [address] [place] Platelets [#/volume] in Bloo d by Automated countOrdered By: Anders Umana on 12-22-2023 Platelets (Bld) [#/Vol] 301 10*3/uL Normal 150-450 [facility] Comment on above: Performed By: #### H SCRP, CK, CMP, CBC, FE and TIBC, LIPID #### [facility] [address] Potassium [Moles/volume] in Serum or PlasmaOrdered By: Anders Umana on 12-22-2023 Potassium [Moles/Vol] 4.4 mmol/L Normal 3.5-5.1 [facility] Comment on above: Performed By: #### H SCRP, CK, CMP, CBC, FE and TIBC, LIPID #### [facility] [address] Protein Test strip (U) [Mass /Vol]Ordered By: Anders Umana on 12-22-2023 Protein (U) [Mass/Vol] Negative Negative [facility] Protein [Mass/volume] in Ser um or PlasmaOrdered By: Anders Umana on 12-22-2023 Protein [Mass/Vol] 7.2 g/dL Normal 6.4-8.9 [facility] Comment on above: Performed By: #### H SCRP, CK, CMP, CBC, FE and TIBC, LIPID #### [facility] [address] Serum globulin measurement b y calculation (mass/volume)Ordered By: Anders Umana on 12-22-2023 Globulin (S) [Mass/Vol] 3.0 g/dL Normal [facility] Comment on above: Performed By: #### H SCRP, CK, CMP, CBC, FE and TIBC, LIPID #### [address] Serum or plasma albumin/glob ulin mass ratioOrdered By: Anders Umana on 12-22-2023 Albumin/Globulin [Mass ratio] 1.4 {ratio} Normal [facility] Comment on above: Performed By: #### H SCRP, CK, CMP, CBC, FE and TIBC, LIPID #### [address] Serum or plasma anion gap de terminationOrdered By: Anders Umana on 12-22-2023 Anion gap [Moles/Vol] 9.0 mmol/L Normal 6.0-15.0 [facility] Comment on above: Performed By: #### H SCRP, CK, CMP, CBC, FE and TIBC, LIPID #### [facility] [address] Serum or plasma non-glucuron idated bilirubin measurement (mass/volume)Ordered By: Anders Umana on 12-22-2023 Bilirubin.indirect [Mass/Vol] 0.2 mg/dL [facility] Sodium [Moles/volume] in Ser um or PlasmaOrdered By: Anders Umana on 12-22-2023 Sodium [Moles/Vol] 137 mmol/L Normal 136-145 [facility] Comment on above: Performed By: #### H SCRP, CK, CMP, CBC, FE and TIBC, LIPID #### [address] Specific gravity Test strip (U) [Rel density]Ordered By: Anders Umana on 12-22-2023 Specific gravity (U) [Rel density] 1.029 1.001-1.03 0 [facility] Urea nitrogen [Mass/volume] in Serum or PlasmaOrdered By: Anders Umana on 12-22-2023 Urea nitrogen [Mass/Vol] 11 mg/dL Normal 7-25 [facility] Comment on above: Performed By: #### H SCRP, CK, CMP, CBC, FE and TIBC, LIPID #### [address] Urine appearanceOrdered By: Anders Umana on 12-22-2023 Appearance (U) Clear Normal Clear [facility] Comment on above: Order Comment: Name Collection Type:: Clean-Voided Midstream Performed By: #### B IOFIRECOVNOTDE, RESP PANEL UPP. #### [address] Urobilinogen Test strip (U) [Mass/Vol]Ordered By: Anders Umana on 12-22-2023 Urobilinogen (U) [Mass/Vol] Normal mg/dL Normal [facility] XR chest 2V*on 12-22-2023 XR chest 2V* [facility] [address] [place] [address] [place] [address] XRay Report Signed Patient: London Velasquez MR#: [id number] : 1965 Acct:[id number] Age/Sex: 58 / F ADM Date: 12/22/23 Loc: ER Room: Type: [facility] ER Attending Dr: Copies to: Anders Umana PA-C Ordering Provider: Anders Umana PA-C Date of Service: 12/22/23 XR/XR chest 2V*: Abdominal Pain Plain film chest 2 view HISTORY: Shortness of breath. COMPARISON: 03/19/22 FINDINGS: SUPPORT DEVICES: None POSTSURGICAL CHANGES: None HEART: Within normal limits PULMONARY CASSIE: Within normal limits MEDIASTINUM: Unremarkable LUNGS AND PLEURA: No acute lung process, pleural effusion or pneumothorax identified. BONY STRUCTURES: Intact ADDITIONAL FINDINGS None XR/XR chest 2V* IMPRESSION: No acute process. Impression dictated by: Stephan Wilson M.D.12/22/2023 4:50 PM Dictation Location: [place] [address] Transcribed By: [facility] 12/22/231649 Dictated By: Stephan Wilson DO 12/22/231649 Signed By: 12/22/231649 Normal [facility] pH of Urine by Test stripOrd ered By: Anders Umana on 12-22-2023 pH (U) 5.5 [pH] Normal 5.0-9.0 [facility] Comment on above: Order Comment: Name Collection Type:: Clean-Voided Midstream Performed By: #### B IOFIRECOVNOTDE, RESP PANEL UPP. #### [facility] [address] [place] [address] [place] Alanine aminotransferase [En zymatic activity/volume] in Serum or PlasmaOrdered By: Kassandra Klein on 12-16-2023 ALT [Catalytic activity/Vol] 17 U/L Normal 7-52 [facility] Comment on above: Order Comment: Reaso n for Exam Diabetes mellitus due to underlying condition with complicat Performed By: #### B IOFIRECOVNOTDE, RESP PANEL UPP. #### [facility] [address] [place] [address] [place] Albumin [Mass/volume] in Ser um or Plasma by Bromocresol green (BCG) dye binding methoOrdered By: Kassandra Klein on 12-16-2023 Albumin BCG dye [Mass/Vol] 4.3 g/dL 3.5-5.7 [facility] Alkaline phosphatase [Enzyma tic activity/volume] in Serum or PlasmaOrdered By: Kassandra Klein on 12-16-2023 ALP [Catalytic activity/Vol] 70 U/L Normal 34-104 [facility] Comment on above: Order Comment: Reaso n for Exam Diabetes mellitus due to underlying condition with complicat Performed By: #### B IOFIRECOVNOTDE, RESP PANEL UPP. #### [facility] [address] Aspartate aminotransferase [ Enzymatic activity/volume] in Serum or PlasmaOrdered By: Kassandra Klein on 12-16-2023 AST [Catalytic activity/Vol] 18 U/L Normal 13-39 [facility] Comment on above: Order Comment: Reaso n for Exam Diabetes mellitus due to underlying condition with complicat Performed By: #### B IOFIRECOVNOTDE, RESP PANEL UPP. #### [facility] [address] Automated basophil %Ordered By: Kassandra Klein on 12-16-2023 Basophils/100 WBC (Bld) 0.7 % Normal . [facility] Comment on above: Order Comment: Reaso n for Exam Diabetes mellitus due to underlying condition with complicat Performed By: #### B IOFIRECOVNOTDE, RESP PANEL UPP. #### [facility] [address] Automated basophil countOrde red By: Kassandra Klein on 12-16-2023 Basophils (Bld) [#/Vol] 0.1 10*3/uL Normal 0.0-0.2 [facility] Comment on above: Order Comment: Reaso n for Exam Diabetes mellitus due to underlying condition with complicat Result Comment: PERF ORMED BY: [place] [address] PATHOLOGIST CRANE OPERATOR DAYANA MONTES M.D. Performed By: #### B IOFIRECOVNOTDE, RESP PANEL UPP. #### [address] Automated blood monocyte cou ntOrdered By: Kassandra Vázquezc on 12-16-2023 Monocytes (Bld) [#/Vol] 0.5 10*3/uL Normal 0.0-0.8 [facility] Comment on above: Order Comment: Reaso n for Exam Diabetes mellitus due to underlying condition with complicat Performed By: #### B IOFIRECOVNOTDE, RESP PANEL UPP. #### [address] Automated eosinophil %Ordere d By: Kassandra Spasic on 12-16-2023 Eosinophils/100 WBC (Bld) 2.0 % Normal . [facility] Comment on above: Order Comment: Reaso n for Exam Diabetes mellitus due to underlying condition with complicat Performed By: #### B IOFIRECOVNOTDE, RESP PANEL UPP. #### [address] Automated eosinophil countOr dered By: Kassandra Vázquezc on 12-16-2023 Eosinophils (Bld) [#/Vol] 0.2 10*3/uL Normal 0.0-0.45 [facility] Comment on above: Order Comment: Reaso n for Exam Diabetes mellitus due to underlying condition with complicat Performed By: #### B IOFIRECOVNOTDE, RESP PANEL UPP. #### [address] Automated monocyte %Ordered By: Kassandra Spagonzaloc on 12-16-2023 Monocytes/100 WBC (Bld) 5.7 % Normal . [facility] Comment on above: Order Comment: Reaso n for Exam Diabetes mellitus due to underlying condition with complicat Performed By: #### B IOFIRECOVNOTDE, RESP PANEL UPP. #### [address] Automated neutrophil %Ordere d By: Kassandra Spasic on 06-18-2024 Neutrophils/100 WBC (Bld) 62.7 % Normal . [facility] Comment on above: Order Comment: Reaso n for Exam Diabetes mellitus due to underlying condition with complicat Performed By: #### B IOFIRECOVNOTDE, RESP PANEL UPP. #### [facility] [address] Bilirubin.total [Mass/volume ] in Serum or PlasmaOrdered By: Kassandra Spasic on 12-16-2023 Bilirubin [Mass/Vol] 0.4 mg/dL Normal 0.3-1.0 [facility] Comment on above: Order Comment: Reaso n for Exam Diabetes mellitus due to underlying condition with complicat Performed By: #### B IOFIRECOVNOTDE, RESP PANEL UPP. #### [facility] [address] Calcium [Mass/volume] in Ser um or PlasmaOrdered By: Kassandra Spasic on 12-16-2023 Calcium [Mass/Vol] 9.5 mg/dL Normal 8.6-10.3 [facility] Comment on above: Order Comment: Reaso n for Exam Diabetes mellitus due to underlying condition with complicat Performed By: #### B IOFIRECOVNOTDE, RESP PANEL UPP. #### [facility] [address] Carbon dioxide, total [Moles /volume] in Serum or PlasmaOrdered By: Kassandra Spasic on 12-16-2023 CO2 [Moles/Vol] 21.1 mmol/L Normal 21.0-31.0 [facility] Comment on above: Order Comment: Reaso n for Exam Diabetes mellitus due to underlying condition with complicat Performed By: #### B IOFIRECOVNOTDE, RESP PANEL UPP. #### [facility] [address] [place] [address] [place] Chloride [Moles/volume] in S lily or PlasmaOrdered By: Kassandra Spasic on 12-16-2023 Chloride [Moles/Vol] 107 mmol/L Normal 98-107 [facility] Comment on above: Order Comment: Reaso n for Exam Diabetes mellitus due to underlying condition with complicat Performed By: #### B IOFIRECOVNOTDE, RESP PANEL UPP. #### [address] Complete Blood Count Auto Di ffon 12-16-2023 Mean Corpuscular HGB Conc 33.3 g/dL Normal 32.0-35.0 [facility] Comment on above: Order Comment: Reaso n for Exam Diabetes mellitus due to underlying condition with complicat Performed By: #### B IOFIRECOVNOTDE, RESP PANEL UPP. #### [address] NRBC% 0.1 /100{WBC} Normal 0-0.5 [facility] Comment on above: Order Comment: Reaso n for Exam Diabetes mellitus due to underlying condition with complicat Performed By: #### B IOFIRECOVNOTDE, RESP PANEL UPP. #### [address] Comprehensive Metabolic Pane claire 12-16-2023 Albumin [Mass/Vol] 4.3 g/dL Normal 3.5-5.7 [facility] Comment on above: Order Comment: Reaso n for Exam Diabetes mellitus due to underlying condition with complicat Performed By: #### B IOFIRECOVNOTDE, RESP PANEL UPP. #### [address] GFR/1.73 sq M.predicted MDRD (S/P/Bld) [Vol rate/Area] mL/min/{1.73_m2} Normal [facility] Comment on above: Order Comment: Reaso n for Exam Diabetes mellitus due to underlying condition with complicat Performed By: #### B IOFIRECOVNOTDE, RESP PANEL UPP. #### [address] Creatinine [Mass/volume] in Serum or PlasmaOrdered By: Kassandra Klein on 12-16-2023 Creatinine [Mass/Vol] 0.89 mg/dL Normal 0.60-1.20 [facility] Comment on above: Order Comment: Reaso n for Exam Diabetes mellitus due to underlying condition with complicat Performed By: #### B IOFIRECOVNOTDE, RESP PANEL UPP. #### [facility] [address] [place] [address] [place] Erythrocyte distribution wid th [Ratio] by Automated countOrdered By: Kassandra Klein on 12-16-2023 Erythrocyte distribution width (RBC) [Ratio] 15.5 % High 11.9-15.3 [facility] Comment on above: Order Comment: Reaso n for Exam Diabetes mellitus due to underlying condition with complicat Performed By: #### B IOFIRECOVNOTDE, RESP PANEL UPP. #### [facility] [address] [place] [address] [place] Erythrocytes [#/volume] in B lood by Automated countOrdered By: Kassandra Klein on 12-16-2023 RBC (Bld) [#/Vol] 4.09 10*6/uL Normal 3.60-5.00 [facility] Comment on above: Order Comment: Reaso n for Exam Diabetes mellitus due to underlying condition with complicat Performed By: #### B IOFIRECOVNOTDE, RESP PANEL UPP. #### [facility] [address] Glucose [Mass/volume] in Ser um or PlasmaOrdered By: Kassandra Klein on 12-16-2023 Glucose [Mass/Vol] 111 mg/dL High 70-100 [facility] Comment on above: ADA recommended refe rence rangeRandom Glucose Reference Range is dependent on time and content of last meal. Glucose of more than 200 mg/dL in a nonstressed, ambulatory subject supports the diagnosis of Diabetes Mellitus. Order Comment: Reaso n for Exam Diabetes mellitus due to underlying condition with complicat Result Comment: [place] om Glucose Reference Range is dependent on time and content of last meal. Glucose of more than 200 mg/dL in a nonstressed, ambulatory subject supports the diagnosis of Diabetes Mellitus. ADA recommended reference range Performed By: #### B IOFIRECOVNOTDE, RESP PANEL UPP. #### [facility] [address] [place] [address] [place] Hematocrit [Volume Fraction] of Blood by Automated countOrdered By: Kassandra Klein on 12-16-2023 Hematocrit (Bld) [Volume fraction] 38.5 % Normal 34.0-46.4 [facility] Comment on above: Order Comment: Reaso n for Exam Diabetes mellitus due to underlying condition with complicat Performed By: #### B IOFIRECOVNOTDE, RESP PANEL UPP. #### [facility] [address] [place] [id number] [place] Hemoglobin [Mass/volume] in BloodOrdered By: Kassandra Klein on 12-16-2023 Hemoglobin (Bld) [Mass/Vol] 12.8 g/dL Normal 11.8-15.4 [facility] Comment on above: Order Comment: Reaso n for Exam Diabetes mellitus due to underlying condition with complicat Performed By: #### B IOFIRECOVNOTDE, RESP PANEL UPP. #### [facility] [address] [place] [id number] [place] Leukocytes [#/volume] correc alyse for nucleated erythrocytes in Blood by Automated counOrdered By: Kassandra Klein on 12-16-2023 WBC corrected for nucl RBC Auto (Bld) [#/Vol] 9.6 10*3/uL 3.8-11.6 [facility] Leukocytes [#/volume] in Blo od by Automated countOrdered By: Kassandra Klein on 12-16-2023 WBC (Bld) [#/Vol] 9.6 10*3/uL Normal 3.8-11.6 [facility] Comment on above: Order Comment: Reaso n for Exam Diabetes mellitus due to underlying condition with complicat Performed By: #### B IOFIRECOVNOTDE, RESP PANEL UPP. #### [facility] [address] [place] [id number] [place] Lymphocytes [#/volume] in Bl ood by Automated countOrdered By: Kassandra Klein on 12-16-2023 Lymphocytes (Bld) [#/Vol] 2.8 10*3/uL Normal 1.00-4.8 [facility] Comment on above: Order Comment: Reaso n for Exam Diabetes mellitus due to underlying condition with complicat Performed By: #### B IOFIRECOVNOTDE, RESP PANEL UPP. #### [facility] [address] [place] [address] [place] Lymphocytes/100 leukocytes i n Blood by Automated countOrdered By: Kassandra Klein on 12-16-2023 Lymphocytes/100 WBC (Bld) 28.9 % Normal . [facility] Comment on above: Order Comment: Reaso n for Exam Diabetes mellitus due to underlying condition with complicat Performed By: #### B IOFIRECOVNOTDE, RESP PANEL UPP. #### [facility] [address] MCH [Entitic mass] by Automa alyse countOrdered By: Kassandra Klein on 12-16-2023 MCH (RBC) [Entitic mass] 31.3 pg Normal 24.7-34.3 [facility] Comment on above: Order Comment: Reaso n for Exam Diabetes mellitus due to underlying condition with complicat Performed By: #### B IOFIRECOVNOTDE, RESP PANEL UPP. #### [facility] [address] [place] [address] MCHC Auto (RBC) [Mass/Vol]Or dered By: Kassandra Klein on 12-16-2023 MCHC (RBC) [Mass/Vol] 33.3 g/dL 32.0-35.0 [facility] MCV [Entitic volume] by Auto mated countOrdered By: Kassandra Klein on 12-16-2023 MCV (RBC) [Entitic vol] 94.1 fL Normal 80-100 [facility] Comment on above: Order Comment: Reaso n for Exam Diabetes mellitus due to underlying condition with complicat Performed By: #### B IOFIRECOVNOTDE, RESP PANEL UPP. #### [facility] [address] [place] [address] [place] Neutrophils [#/volume] in Bl ood by Automated countOrdered By: Kassandra Klein on 12-16-2023 Neutrophils (Bld) [#/Vol] 6.0 10*3/uL Normal 1.8-7.7 [facility] Comment on above: Order Comment: Reaso n for Exam Diabetes mellitus due to underlying condition with complicat Performed By: #### B IOFIRECOVNOTDE, RESP PANEL UPP. #### [facility] [address] No Panel InformationOrdered By: Kassandra Klein on 12-16-2023 Estimated GFR (CKD-EPI) > 60.0 mL/Min [facility] Creatinine Clearance (Chem N/A [facility] Nucleated erythrocytes [Pres ence] in Blood by Automated countOrdered By: Kassandra Klein on 12-16-2023 Nucleated RBC Auto Ql (Bld) 0.1 /100{WBC} 0-0.5 [facility] Platelet mean volume [Entiti c volume] in Blood by Automated countOrdered By: Kassandra Klein on 12-16-2023 Platelet mean volume (Bld) [Entitic vol] 10.1 fL Normal 6.3-10.7 [facility] Comment on above: Order Comment: Reaso n for Exam Diabetes mellitus due to underlying condition with complicat Performed By: #### B IOFIRECOVNOTDE, RESP PANEL UPP. #### [facility] [address] [place] [address] Platelets [#/volume] in Bloo d by Automated countOrdered By: Kassandra Klein on 12-16-2023 Platelets (Bld) [#/Vol] 319 10*3/uL Normal 150-450 [facility] Comment on above: Order Comment: Reaso n for Exam Diabetes mellitus due to underlying condition with complicat Performed By: #### B IOFIRECOVNOTDE, RESP PANEL UPP. #### [facility] [address] [place] [address] Potassium [Moles/volume] in Serum or PlasmaOrdered By: Kassandra Klein on 12-16-2023 Potassium [Moles/Vol] 4.2 mmol/L Normal 3.5-5.1 [facility] Comment on above: Order Comment: Reaso n for Exam Diabetes mellitus due to underlying condition with complicat Performed By: #### B IOFIRECOVNOTDE, RESP PANEL UPP. #### [facility] [address] Protein [Mass/volume] in Ser um or PlasmaOrdered By: Kassandra Vázquezc on 12-16-2023 Protein [Mass/Vol] 7.2 g/dL Normal 6.4-8.9 [facility] Comment on above: Order Comment: Reaso n for Exam Diabetes mellitus due to underlying condition with complicat Performed By: #### B IOFIRECOVNOTDE, RESP PANEL UPP. #### [address] Serum globulin measurement b y calculation (mass/volume)Ordered By: Kassandra Klein on 12-16-2023 Globulin (S) [Mass/Vol] 2.9 g/dL Normal [facility] Comment on above: Order Comment: Reaso n for Exam Diabetes mellitus due to underlying condition with complicat Performed By: #### B IOFIRECOVNOTDE, RESP PANEL UPP. #### [address] Serum or plasma albumin/glob ulin mass ratioOrdered By: Kassandra Gurrpeetc on 12-16-2023 Albumin/Globulin [Mass ratio] 1.5 {ratio} Normal [facility] Comment on above: Order Comment: Reaso n for Exam Diabetes mellitus due to underlying condition with complicat Performed By: #### B IOFIRECOVNOTDE, RESP PANEL UPP. #### [facility] [address] [place] [address] Serum or plasma anion gap de terminationOrdered By: Kassandra Vázquezc on 12-16-2023 Anion gap [Moles/Vol] 15.1 mmol/L High 6.0-15.0 [facility] [place] [facility] Comment on above: Order Comment: Reaso n for Exam Diabetes mellitus due to underlying condition with complicat Performed By: #### B IOFIRECOVNOTDE, RESP PANEL UPP. #### [address] Sodium [Moles/volume] in Ser um or PlasmaOrdered By: Kassandra Bobsic on 06-18-2024 Sodium [Moles/Vol] 139 mmol/L Normal 136-145 [facility] Comment on above: Order Comment: Reaso n for Exam Diabetes mellitus due to underlying condition with complicat Performed By: #### B IOFIRECOVNOTDE, RESP PANEL UPP. #### [place] [address] [place] Urate [Mass/volume] in Serum or PlasmaOrdered By: Kassandra Klein on 12-16-2023 Urate [Mass/Vol] 6.1 mg/dL Normal 2.3-6.6 [facility] Comment on above: Order Comment: Reaso n for Exam Diabetes mellitus due to underlying condition with complicat Result Comment: PERF ORMED BY: [place] [address] PATHOLOGIST CRANE OPERATOR DAYANA MONTES M.D. Performed By: #### B IOFIRECOVNOTDE, RESP PANEL UPP. #### [place] [address] [place] Urea nitrogen [Mass/volume] in Serum or PlasmaOrdered By: Kassandra Klein on 12-16-2023 Urea nitrogen [Mass/Vol] 16 mg/dL Normal 7-25 [facility] Comment on above: Order Comment: Reaso n for Exam Diabetes mellitus due to underlying condition with complicat Performed By: #### B IOFIRECOVNOTDE, RESP PANEL UPP. #### [place] [address] [place] Alanine aminotransferase [En zymatic activity/volume] in Serum or PlasmaOrdered By: Kassandra Klein on 09-11-2023 ALT [Catalytic activity/Vol] 17 U/L Normal 7-52 [facility] Comment on above: Order Comment: Reaso n for Exam Umbilical mass;Periumbilical abdominal pain Performed By: #### H SCRP, CK, CMP, CBC, FE and TIBC, LIPID #### [place] [address] [place] Albumin [Mass/volume] in Ser um or Plasma by Bromocresol green (BCG) dye binding methoOrdered By: Kassandra Klein on 09-11-2023 Albumin BCG dye [Mass/Vol] 4.5 g/dL 3.5-5.7 [facility] Alkaline phosphatase [Enzyma tic activity/volume] in Serum or PlasmaOrdered By: Kassandra Klein on 09-11-2023 ALP [Catalytic activity/Vol] 79 U/L Normal 34-104 [facility] Comment on above: Order Comment: Reaso n for Exam Umbilical mass;Periumbilical abdominal pain Result Comment: PERF ORMED BY: [place] [address] PATHOLOGIST CRANE OPERATOR DAYANA MONTES M.D. Performed By: #### H SCRP, CK, CMP, CBC, FE and TIBC, LIPID #### [facility] [address] [place] [address] Aspartate aminotransferase [ Enzymatic activity/volume] in Serum or PlasmaOrdered By: Kassandra Klein on 09-11-2023 AST [Catalytic activity/Vol] 20 U/L Normal 13-39 [facility] Comment on above: Order Comment: Reaso n for Exam Umbilical mass;Periumbilical abdominal pain Performed By: #### H SCRP, CK, CMP, CBC, FE and TIBC, LIPID #### [facility] [address] [place] [address] Automated basophil %Ordered By: Kassandra Klein on 09-11-2023 Basophils/100 WBC (Bld) 0.9 % Normal . [facility] Comment on above: Order Comment: Reaso n for Exam Umbilical mass;Periumbilical abdominal pain Performed By: #### H SCRP, CK, CMP, CBC, FE and TIBC, LIPID #### [facility] [address] Automated basophil countOrde red By: Kassandra Klein on 09-11-2023 Basophils (Bld) [#/Vol] 0.1 10*3/uL Normal 0.0-0.2 [facility] Comment on above: Order Comment: Reaso n for Exam Umbilical mass;Periumbilical abdominal pain Result Comment: PERF ORMED BY: [place] [id number] PATHOLOGIST CRANE OPERATOR DAYANA MONTES M.D. Performed By: #### H SCRP, CK, CMP, CBC, FE and TIBC, LIPID #### [facility] [address] Automated blood monocyte cou ntOrdered By: Kassandra Klein on 09-11-2023 Monocytes (Bld) [#/Vol] 0.6 10*3/uL Normal 0.0-0.8 [facility] Comment on above: Order Comment: Reaso n for Exam Umbilical mass;Periumbilical abdominal pain Performed By: #### H SCRP, CK, CMP, CBC, FE and TIBC, LIPID #### [facility] [address] Automated eosinophil %Ordere d By: Kassandra Klein on 09-11-2023 Eosinophils/100 WBC (Bld) 3.1 % Normal . [facility] Comment on above: Order Comment: Reaso n for Exam Umbilical mass;Periumbilical abdominal pain Performed By: #### H SCRP, CK, CMP, CBC, FE and TIBC, LIPID #### [facility] [address] Automated eosinophil countOr dered By: Kassandra Klein on 09-11-2023 Eosinophils (Bld) [#/Vol] 0.3 10*3/uL Normal 0.0-0.45 [facility] Comment on above: Order Comment: Reaso n for Exam Umbilical mass;Periumbilical abdominal pain Performed By: #### H SCRP, CK, CMP, CBC, FE and TIBC, LIPID #### [facility] [address] Automated monocyte %Ordered By: Kassandra Klein on 09-11-2023 Monocytes/100 WBC (Bld) 7.0 % Normal . [facility] Comment on above: Order Comment: Reaso n for Exam Umbilical mass;Periumbilical abdominal pain Performed By: #### H SCRP, CK, CMP, CBC, FE and TIBC, LIPID #### [facility] [address] Automated neutrophil %Ordere d By: Kassandra Klein on 09-11-2023 Neutrophils/100 WBC (Bld) 64.9 % Normal . [facility] Comment on above: Order Comment: Reaso n for Exam Umbilical mass;Periumbilical abdominal pain Performed By: #### H SCRP, CK, CMP, CBC, FE and TIBC, LIPID #### [facility] [address] Bilirubin.total [Mass/volume ] in Serum or PlasmaOrdered By: Kassandra Klein on 09-11-2023 Bilirubin [Mass/Vol] 0.5 mg/dL Normal 0.3-1.0 [facility] Comment on above: Order Comment: Reaso n for Exam Umbilical mass;Periumbilical abdominal pain Performed By: #### H SCRP, CK, CMP, CBC, FE and TIBC, LIPID #### [facility] [address] abdomen pelvis w conon CT abdomen pelvis w con [facility] [place] [address] [place] [address] CT Scan Report Signed Patient: London Velasquez MR#: [id number] : 1965 Acct:[id number] Age/Sex: 58 / F ADM Date: 09/11/23 Loc: CT Room: Type: [facility] Attending Dr: Kassandra HADLEY Copies to: JOMAR Carvajal Ordering Provider: JOMAR Carvajal Date of Service: 09/11/23 CT/CT abdomen pelvis w con: Umbilical mass;Periumbilical abdominal pain CT ABDOMEN AND PELVIS WITH INTRAVENOUS CONTRAST: CLINICAL HISTORY: Abdominal pain. Periumbilical pain. COMPARISON: None TECHNIQUE: Spiral images were obtained through the abdomen and pelvis following the administration of intravenous contrast. This CT exam was performed using one or more following dose reduction techniques: Automated exposure control, adjustment of the mA and/or kV according to patient size, or use of iterative reconstruction technique. FINDINGS: Lung Bases: [No acute findings.] Organs:Gallbladder has been removed. Liver portal vein pancreas spleen and adrenal glands appear unremarkable. Cystic changes involving the right kidney. Subcentimeter low attenuating lesions are seen within both kidneys, too small for accurate characterization. 4 mm stone inferior pole right kidney. Abdominal aorta appears normal in caliber.[ GI: Stomach is grossly unremarkable. Small bowel appears nondilated. Appendix is normal. No acute colonic abnormality.[ Pelvis:[Urinary bladder is grossly unremarkable. Uterus is grossly unremarkable. No adnexal mass.] Peritoneum/Retroperitoneum :No free air, free fluid or lymphadenopathy.[ Abd wall/Bones:Abdominal wall demonstrates no acute findings. Osseous structures demonstrate degenerative change.[ CT/CT abdomen pelvis w con IMPRESSION: No acute findings. Right nephrolithiasis. Impression dictated by: Winston Martinez Jr., D.OShira09/11/2023 3:08 PM Dictation Location: [place] [address] Transcribed By: [facility] 09/11/23 1508 Dictated By: Winston Martinez Jr, DO 09/11/23 1458 Signed By: 09/11/23 1508 Normal [facility] Calcium [Mass/volume] in Ser um or PlasmaOrdered By: Kassandra Klein on 09-11-2023 Calcium [Mass/Vol] 9.7 mg/dL Normal 8.6-10.3 [facility] Comment on above: Order Comment: Reaso n for Exam Umbilical mass;Periumbilical abdominal pain Performed By: #### H SCRP, CK, CMP, CBC, FE and TIBC, LIPID #### [facility] [address] [place] [address] [place] Carbon dioxide, total [Moles /volume] in Serum or PlasmaOrdered By: Kassandra Klein on 09-11-2023 CO2 [Moles/Vol] 21.8 mmol/L Normal 21.0-31.0 [facility] Comment on above: Order Comment: Reaso n for Exam Umbilical mass;Periumbilical abdominal pain Performed By: #### H SCRP, CK, CMP, CBC, FE and TIBC, LIPID #### [facility] [address] [place] [id number] [place] Chloride [Moles/volume] in S lily or PlasmaOrdered By: Kassandra Klein on 09-11-2023 Chloride [Moles/Vol] 109 mmol/L High 98-107 [facility] Comment on above: Order Comment: Reaso n for Exam Umbilical mass;Periumbilical abdominal pain Performed By: #### H SCRP, CK, CMP, CBC, FE and TIBC, LIPID #### [facility] [address] Complete Blood Count Auto Di ffon 09-11-2023 Mean Corpuscular HGB Conc 32.6 g/dL Normal 32.0-35.0 [facility] Comment on above: Order Comment: Reaso n for Exam Umbilical mass;Periumbilical abdominal pain Performed By: #### H SCRP, CK, CMP, CBC, FE and TIBC, LIPID #### [facility] [address] NRBC% 0.1 /100{WBC} Normal 0-0.5 [facility] Comment on above: Order Comment: Reaso n for Exam Umbilical mass;Periumbilical abdominal pain Performed By: #### H SCRP, CK, CMP, CBC, FE and TIBC, LIPID #### [address] Comprehensive Metabolic Pane claire 09-11-2023 Albumin [Mass/Vol] 4.5 g/dL Normal 3.5-5.7 [facility] Comment on above: Order Comment: Reaso n for Exam Umbilical mass;Periumbilical abdominal pain Performed By: #### H SCRP, CK, CMP, CBC, FE and TIBC, LIPID #### [address] GFR/1.73 sq M.predicted MDRD (S/P/Bld) [Vol rate/Area] mL/min/{1.73_m2} Normal [facility] Comment on above: Order Comment: Reaso n for Exam Umbilical mass;Periumbilical abdominal pain Performed By: #### H SCRP, CK, CMP, CBC, FE and TIBC, LIPID #### [address] Creatinine [Mass/volume] in Serum or PlasmaOrdered By: Kassandra Klein on 09-11-2023 Creatinine [Mass/Vol] 0.78 mg/dL Normal 0.60-1.20 [facility] Comment on above: Order Comment: Reaso n for Exam Umbilical mass;Periumbilical abdominal pain Performed By: #### H SCRP, CK, CMP, CBC, FE and TIBC, LIPID #### [facility] [address] Erythrocyte distribution wid th [Ratio] by Automated countOrdered By: Kassandra Klein on 09-11-2023 Erythrocyte distribution width (RBC) [Ratio] 14.9 % Normal 11.9-15.3 [facility] Comment on above: Order Comment: Reaso n for Exam Umbilical mass;Periumbilical abdominal pain Performed By: #### H SCRP, CK, CMP, CBC, FE and TIBC, LIPID #### [facility] [address] Erythrocytes [#/volume] in B lood by Automated countOrdered By: Kassandra Klein on 09-11-2023 RBC (Bld) [#/Vol] 4.62 10*6/uL Normal 3.60-5.00 [facility] Comment on above: Order Comment: Reaso n for Exam Umbilical mass;Periumbilical abdominal pain Performed By: #### H SCRP, CK, CMP, CBC, FE and TIBC, LIPID #### [facility] [address] Glucose [Mass/volume] in Ser um or PlasmaOrdered By: Kassandra Klein on 09-11-2023 Glucose [Mass/Vol] 131 mg/dL High 70-100 [facility] Comment on above: ADA recommended refe rence rangeRandom Glucose Reference Range is dependent on time and content of last meal. Glucose of more than 200 mg/dL in a nonstressed, ambulatory subject supports the diagnosis of Diabetes Mellitus. Order Comment: Reaso n for Exam Umbilical mass;Periumbilical abdominal pain Result Comment: [place] om Glucose Reference Range is dependent on time and content of last meal. Glucose of more than 200 mg/dL in a nonstressed, ambulatory subject supports the diagnosis of Diabetes Mellitus. ADA recommended reference range Performed By: #### H SCRP, CK, CMP, CBC, FE and TIBC, LIPID #### [facility] [address] Hematocrit [Volume Fraction] of Blood by Automated countOrdered By: Kassandra Klein on 09-11-2023 Hematocrit (Bld) [Volume fraction] 43.2 % Normal 34.0-46.4 [facility] Comment on above: Order Comment: Reaso n for Exam Umbilical mass;Periumbilical abdominal pain Performed By: #### H SCRP, CK, CMP, CBC, FE and TIBC, LIPID #### [facility] [address] Hemoglobin [Mass/volume] in BloodOrdered By: Kassandra Klein on 09-11-2023 Hemoglobin (Bld) [Mass/Vol] 14.1 g/dL Normal 11.8-15.4 [facility] Comment on above: Order Comment: Reaso n for Exam Umbilical mass;Periumbilical abdominal pain Performed By: #### H SCRP, CK, CMP, CBC, FE and TIBC, LIPID #### [facility] [address] Leukocytes [#/volume] correc alyse for nucleated erythrocytes in Blood by Automated counOrdered By: Kassandra Klein on 09-11-2023 WBC corrected for nucl RBC Auto (Bld) [#/Vol] 8.2 10*3/uL 3.8-11.6 [facility] Leukocytes [#/volume] in Blo od by Automated countOrdered By: Kassandra Klein on 09-11-2023 WBC (Bld) [#/Vol] 8.2 10*3/uL Normal 3.8-11.6 [facility] Comment on above: Order Comment: Reaso n for Exam Umbilical mass;Periumbilical abdominal pain Performed By: #### H SCRP, CK, CMP, CBC, FE and TIBC, LIPID #### [facility] [address] [place] [address] [place] Lymphocytes [#/volume] in Bl ood by Automated countOrdered By: Kassandra Klein on 09-11-2023 Lymphocytes (Bld) [#/Vol] 2.0 10*3/uL Normal 1.00-4.8 [facility] Comment on above: Order Comment: Reaso n for Exam Umbilical mass;Periumbilical abdominal pain Performed By: #### H SCRP, CK, CMP, CBC, FE and TIBC, LIPID #### [facility] [address] Lymphocytes/100 leukocytes i n Blood by Automated countOrdered By: Kassandra Klein on 09-11-2023 Lymphocytes/100 WBC (Bld) 24.1 % Normal . [facility] Comment on above: Order Comment: Reaso n for Exam Umbilical mass;Periumbilical abdominal pain Performed By: #### H SCRP, CK, CMP, CBC, FE and TIBC, LIPID #### [address] MCH [Entitic mass] by Automa alyse countOrdered By: Kassandra Klein on 09-11-2023 MCH (RBC) [Entitic mass] 30.5 pg Normal 24.7-34.3 [facility] Comment on above: Order Comment: Reaso n for Exam Umbilical mass;Periumbilical abdominal pain Performed By: #### H SCRP, CK, CMP, CBC, FE and TIBC, LIPID #### [address] MCHC Auto (RBC) [Mass/Vol]Or dered By: Kassandra Klein on 09-11-2023 MCHC (RBC) [Mass/Vol] 32.6 g/dL 32.0-35.0 [facility] MCV [Entitic volume] by Auto mated countOrdered By: Kassandra Klein on 09-11-2023 MCV (RBC) [Entitic vol] 93.6 fL Normal 80-100 [facility] Comment on above: Order Comment: Reaso n for Exam Umbilical mass;Periumbilical abdominal pain Performed By: #### H SCRP, CK, CMP, CBC, FE and TIBC, LIPID #### [facility] [address] Neutrophils [#/volume] in Bl ood by Automated countOrdered By: Kassandra Klein on 09-11-2023 Neutrophils (Bld) [#/Vol] 5.3 10*3/uL Normal 1.8-7.7 [facility] Comment on above: Order Comment: Reaso n for Exam Umbilical mass;Periumbilical abdominal pain Performed By: #### H SCRP, CK, CMP, CBC, FE and TIBC, LIPID #### [facility] [address] No Panel InformationOrdered By: Kassandra Klein on 09-11-2023 Estimated GFR (CKD-EPI) > 60.0 mL/Min [facility] Creatinine Clearance (Chem N/A [facility] Nucleated erythrocytes [Pres ence] in Blood by Automated countOrdered By: Kassandra Klein on 09-11-2023 Nucleated RBC Auto Ql (Bld) 0.1 /100{WBC} 0-0.5 [facility] Platelet mean volume [Entiti c volume] in Blood by Automated countOrdered By: Kassandra Klein on 09-11-2023 Platelet mean volume (Bld) [Entitic vol] 10.0 fL Normal 6.3-10.7 [facility] Comment on above: Order Comment: Reaso n for Exam Umbilical mass;Periumbilical abdominal pain Performed By: #### H SCRP, CK, CMP, CBC, FE and TIBC, LIPID #### [facility] [address] [place] [address] [place] Platelets [#/volume] in Bloo d by Automated countOrdered By: Kassandra Klein on 09-11-2023 Platelets (Bld) [#/Vol] 318 10*3/uL Normal 150-450 [facility] Comment on above: Order Comment: Reaso n for Exam Umbilical mass;Periumbilical abdominal pain Performed By: #### H SCRP, CK, CMP, CBC, FE and TIBC, LIPID #### [facility] [address] [place] [address] [place] Potassium [Moles/volume] in Serum or PlasmaOrdered By: Kassandra Klein on 09-11-2023 Potassium [Moles/Vol] 4.3 mmol/L Normal 3.5-5.1 [facility] Comment on above: Order Comment: Reaso n for Exam Umbilical mass;Periumbilical abdominal pain Performed By: #### H SCRP, CK, CMP, CBC, FE and TIBC, LIPID #### [facility] [address] Protein [Mass/volume] in Ser um or PlasmaOrdered By: Kassandra Klein on 09-11-2023 Protein [Mass/Vol] 7.7 g/dL Normal 6.4-8.9 [facility] Comment on above: Order Comment: Reaso n for Exam Umbilical mass;Periumbilical abdominal pain Performed By: #### H SCRP, CK, CMP, CBC, FE and TIBC, LIPID #### [facility] [address] Serum globulin measurement b y calculation (mass/volume)Ordered By: Kassandra Klein on 09-11-2023 Globulin (S) [Mass/Vol] 3.2 g/dL Normal [facility] Comment on above: Order Comment: Reaso n for Exam Umbilical mass;Periumbilical abdominal pain Performed By: #### H SCRP, CK, CMP, CBC, FE and TIBC, LIPID #### [facility] [address] Serum or plasma albumin/glob ulin mass ratioOrdered By: Kassandra Klein on 09-11-2023 Albumin/Globulin [Mass ratio] 1.4 {ratio} Normal [facility] Comment on above: Order Comment: Reaso n for Exam Umbilical mass;Periumbilical abdominal pain Performed By: #### H SCRP, CK, CMP, CBC, FE and TIBC, LIPID #### [facility] [address] Serum or plasma anion gap de terminationOrdered By: Kassandra Klein on 09-11-2023 Anion gap [Moles/Vol] 13.5 mmol/L Normal 6.0-15.0 [facility] Comment on above: Order Comment: Reaso n for Exam Umbilical mass;Periumbilical abdominal pain Performed By: #### H SCRP, CK, CMP, CBC, FE and TIBC, LIPID #### [facility] [address] [place] [address] [place] Sodium [Moles/volume] in Ser um or PlasmaOrdered By: Kassandra Klein on 09-11-2023 Sodium [Moles/Vol] 140 mmol/L Normal 136-145 [facility] Comment on above: Order Comment: Reaso n for Exam Umbilical mass;Periumbilical abdominal pain Performed By: #### H SCRP, CK, CMP, CBC, FE and TIBC, LIPID #### [facility] [address] [place] [address] [place] Urea nitrogen [Mass/volume] in Serum or PlasmaOrdered By: Kassandra Klein on 09-11-2023 Urea nitrogen [Mass/Vol] 16 mg/dL Normal 7-25 [facility] Comment on above: Order Comment: Reaso n for Exam Umbilical mass;Periumbilical abdominal pain Performed By: #### H SCRP, CK, CMP, CBC, FE and TIBC, LIPID #### [facility] [address] [place] [address] [place] Alanine aminotransferase [En zymatic activity/volume] in Serum or PlasmaOrdered By: Kassandra Klein on 04-17-2023 ALT [Catalytic activity/Vol] 18 U/L Normal 7-52 [facility] Comment on above: Performed By: #### H SCRP, CK, CMP, CBC, FE and TIBC, LIPID #### [facility] [address] [place] [address] [place] Albumin [Mass/volume] in Ser um or Plasma by Bromocresol green (BCG) dye binding methoOrdered By: Kassandra Klein on 04-17-2023 Albumin BCG dye [Mass/Vol] 4.5 g/dL 3.5-5.7 [facility] Alkaline phosphatase [Enzyma tic activity/volume] in Serum or PlasmaOrdered By: Kassandra Klein on 04-17-2023 ALP [Catalytic activity/Vol] 77 U/L Normal 34-104 [facility] Comment on above: Performed By: #### H SCRP, CK, CMP, CBC, FE and TIBC, LIPID #### [address] Aspartate aminotransferase [ Enzymatic activity/volume] in Serum or PlasmaOrdered By: Kassandra Gurpreetc on 04-17-2023 AST [Catalytic activity/Vol] 19 U/L Normal 13-39 [facility] Comment on above: Performed By: #### H SCRP, CK, CMP, CBC, FE and TIBC, LIPID #### [address] Automated basophil %Ordered By: Kassandra Bobsic on 04-17-2023 Basophils/100 WBC (Bld) 0.6 % Normal . [facility] Comment on above: Performed By: #### H SCRP, CK, CMP, CBC, FE and TIBC, LIPID #### [address] Automated basophil countOrde red By: Kassandra Vázquezc on 04-17-2023 Basophils (Bld) [#/Vol] 0.1 10*3/uL Normal 0.0-0.2 [facility] Comment on above: Result Comment: PERF ORMED BY: [place] [address] PATHOLOGIST CRANE OPERATOR DAYANA MONTES M.D. Performed By: #### H SCRP, CK, CMP, CBC, FE and TIBC, LIPID #### [address] Automated blood monocyte cou ntOrdered By: Kassandra Spasic on 04-17-2023 Monocytes (Bld) [#/Vol] 0.6 10*3/uL Normal 0.0-0.8 [facility] Comment on above: Performed By: #### H SCRP, CK, CMP, CBC, FE and TIBC, LIPID #### [address] Automated eosinophil %Ordere d By: Kassandra Spagonzaloc on 10-19-2023 Eosinophils/100 WBC (Bld) 2.5 % Normal . [facility] Comment on above: Performed By: #### H SCRP, CK, CMP, CBC, FE and TIBC, LIPID #### [facility] [address] Automated eosinophil countOr dered By: Kassandra Klein on 04-17-2023 Eosinophils (Bld) [#/Vol] 0.2 10*3/uL Normal 0.0-0.45 [facility] Comment on above: Performed By: #### H SCRP, CK, CMP, CBC, FE and TIBC, LIPID #### [facility] [address] Automated monocyte %Ordered By: Kassandra Klein on 04-17-2023 Monocytes/100 WBC (Bld) 7.0 % Normal . [facility] Comment on above: Performed By: #### H SCRP, CK, CMP, CBC, FE and TIBC, LIPID #### [facility] [address] Automated neutrophil %Ordere d By: Kassandra Klein on 04-17-2023 Neutrophils/100 WBC (Bld) 60.4 % Normal . [facility] Comment on above: Performed By: #### H SCRP, CK, CMP, CBC, FE and TIBC, LIPID #### [facility] [address] Bilirubin.total [Mass/volume ] in Serum or PlasmaOrdered By: Kassandra Klein on 04-17-2023 Bilirubin [Mass/Vol] 0.4 mg/dL Normal 0.3-1.0 [facility] Comment on above: Performed By: #### H SCRP, CK, CMP, CBC, FE and TIBC, LIPID #### [facility] [address] BioFire Not Detectedon 04-17 BioFire Not Detected Not detected Normal Not Detecte [facility] Comment on above: Result Comment: This is a duplicate RP2.1 COVID (PCR) result to be used for statistical tracking purpose only. PERFORMED BY: [place] [address] PATHOLOGIST CRANE OPERATOR DAYANA MONTES M.D. Performed By: #### B IOFIRECOVNOTDE, RESP PANEL UPP. #### [facility] [address] [place] [address] C reactive protein [Mass/vol ume] in Serum or Plasma by High sensitivity methodOrdered By: Kassandra Klein on 04-17-2023 CRP High sensitivity method [Mass/Vol] 6.3 mg/L 0.0-0.9 [facility] Comment on above: Cardiovascular Risk Classification (AHA/CDC)hsCRP < 1.0 mg/l low relative risk for CVDhsCRP 1.0-3.0 mg/l average relative risk for CVDhsCRP > 3.0 mg/l high relative risk for CVDhsCRP > 7.5 mg/l active inflammation*Two results two weeks apart and averaged provide a morestable estimate of hsCRP level.*hsCRP levels > 7.5 mg/l may suggest infection that canlimit the use of this marker for estimation of CVD risk. COVID-19 Detected/Not Detect edOrdered By: Kassandra Klein on 04-17-2023 SARS-CoV-2 (COVID-19) RNA GINETTE+non-probe Ql (Nph) Not detected Not Detecte [facility] Comment on above: This is a duplicate RP2.1 COVID (PCR) result to be used for statistical tracking purpose only. Calcium [Mass/volume] in Ser um or PlasmaOrdered By: Kassandra Klein on 04-17-2023 Calcium [Mass/Vol] 9.9 mg/dL Normal 8.6-10.3 [facility] Comment on above: Performed By: #### H SCRP, CK, CMP, CBC, FE and TIBC, LIPID #### [facility] [address] [place] [address] Carbon dioxide, total [Moles /volume] in Serum or PlasmaOrdered By: Kassandra Klein on 04-17-2023 CO2 [Moles/Vol] 23.4 mmol/L Normal 21.0-31.0 [facility] Comment on above: Performed By: #### H SCRP, CK, CMP, CBC, FE and TIBC, LIPID #### [facility] [address] [place] [address] [place] Chloride [Moles/volume] in S lily or PlasmaOrdered By: Kassandra Klein on 04-17-2023 Chloride [Moles/Vol] 109 mmol/L High 98-107 [facility] Comment on above: Performed By: #### H SCRP, CK, CMP, CBC, FE and TIBC, LIPID #### [facility] [address] [place] [address] [place] Cholesterol [Mass/volume] in Serum or PlasmaOrdered By: Kassandra Klein on 04-17-2023 Cholesterol [Mass/Vol] 185 mg/dL Normal 140-200 [facility] [place] [facility] Comment on above: Chol less than 200 m g/dl low riskChol 201-239 mg/dl borderline riskChol 240 mg/dl and greater high risk Result Comment: Chol less than 200 mg/dl low risk Chol 201-239 mg/dl borderline risk Chol 240 mg/dl and greater high risk Performed By: #### H SCRP, CK, CMP, CBC, FE and TIBC, LIPID #### [facility] [address] Cholesterol in LDL Calc [Mas s/Vol]Ordered By: Kassandra Klein on 04-17-2023 Cholesterol in LDL [Mass/Vol] 118 mg/dL 0-100 [facility] Comment on above: LDL ATP III CLASSIFI CATIONLDL less than 100 mg/dL OptimalLDL 100-129 mg/dL Near or above optimalLDL 130-159 mg/dL Borderline highLDL 160-189 mg/dL HighLDL greater than 189 mg/dL Very high Cholesterol in VLDL Calc [Ma ss/Vol]Ordered By: Kassandra Klein on 04-17-2023 Cholesterol in VLDL [Mass/Vol] 24 mg/dL [facility] Complete Blood Count Auto Di ffon 04-17-2023 Mean Corpuscular HGB Conc 33.6 g/dL Normal 32.0-35.0 [facility] Comment on above: Performed By: #### H SCRP, CK, CMP, CBC, FE and TIBC, LIPID #### [facility] [address] NRBC% 0.1 /100{WBC} Normal 0-0.5 [facility] Comment on above: Performed By: #### H SCRP, CK, CMP, CBC, FE and TIBC, LIPID #### [facility] [address] Comprehensive Metabolic Pane claire 04-17-2023 Albumin [Mass/Vol] 4.5 g/dL Normal 3.5-5.7 [facility] Comment on above: Performed By: #### H SCRP, CK, CMP, CBC, FE and TIBC, LIPID #### [place] [address] [place] GFR/1.73 sq M.predicted MDRD (S/P/Bld) [Vol rate/Area] mL/min/{1.73_m2} Normal [facility] Comment on above: Performed By: #### H SCRP, CK, CMP, CBC, FE and TIBC, LIPID #### [address] Creatine kinase [Enzymatic a ctivity/volume] in Serum or PlasmaOrdered By: Kassandra Klein on 04-17-2023 CK [Catalytic activity/Vol] 180 U/L Normal 30-223 [facility] Comment on above: Result Comment: PERF ORMED BY: [place] [address] PATHOLOGIST CRANE OPERATOR DAYANA MONTES M.D. Performed By: #### H SCRP, CK, CMP, CBC, FE and TIBC, LIPID #### [address] Creatinine [Mass/volume] in Serum or PlasmaOrdered By: Kassandra Klein on 04-17-2023 Creatinine [Mass/Vol] 0.78 mg/dL Normal 0.60-1.20 [facility] Comment on above: Performed By: #### H SCRP, CK, CMP, CBC, FE and TIBC, LIPID #### [address] [address] [place] Erythrocyte distribution wid th [Ratio] by Automated countOrdered By: Kassandra Klein on 04-17-2023 Erythrocyte distribution width (RBC) [Ratio] 15.3 % Normal 11.9-15.3 [facility] Comment on above: Performed By: #### H SCRP, CK, CMP, CBC, FE and TIBC, LIPID #### [facility] [address] Erythrocytes [#/volume] in B lood by Automated countOrdered By: Kassandra Klein on 04-17-2023 RBC (Bld) [#/Vol] 4.44 10*6/uL Normal 3.60-5.00 [facility] Comment on above: Performed By: #### H SCRP, CK, CMP, CBC, FE and TIBC, LIPID #### [facility] [address] Glucose [Mass/volume] in Ser um or PlasmaOrdered By: Kassandra Klein on 04-17-2023 Glucose [Mass/Vol] 131 mg/dL High 70-100 [facility] Comment on above: ADA recommended refe rence rangeRandom Glucose Reference Range is dependent on time and content of last meal. Glucose of more than 200 mg/dL in a nonstressed, ambulatory subject supports the diagnosis of Diabetes Mellitus. Result Comment: [place] om Glucose Reference Range is dependent on time and content of last meal. Glucose of more than 200 mg/dL in a nonstressed, ambulatory subject supports the diagnosis of Diabetes Mellitus. ADA recommended reference range Performed By: #### H SCRP, CK, CMP, CBC, FE and TIBC, LIPID #### [facility] [address] Hematocrit [Volume Fraction] of Blood by Automated countOrdered By: Kassandra Klein on 04-17-2023 Hematocrit (Bld) [Volume fraction] 40.8 % Normal 34.0-46.4 [facility] Comment on above: Performed By: #### H SCRP, CK, CMP, CBC, FE and TIBC, LIPID #### [facility] [address] Hemoglobin [Mass/volume] in BloodOrdered By: Kassandra Klein on 04-17-2023 Hemoglobin (Bld) [Mass/Vol] 13.7 g/dL Normal 11.8-15.4 [facility] Comment on above: Performed By: #### H SCRP, CK, CMP, CBC, FE and TIBC, LIPID #### [facility] [address] High Sensitive CRPon 023 High Sensitive CRP 6.3 mg/L High 0.0-0.9 [facility] Comment on above: Result Comment: Card iovascular Risk Classification (AHA/CDC) hsCRP < 1.0 mg/l low relative risk for CVD hsCRP 1.0-3.0 mg/l average relative risk for CVD hsCRP > 3.0 mg/l high relative risk for CVD hsCRP > 7.5 mg/l active inflammation* Two results two weeks apart and averaged provide a more stable estimate of hsCRP level. *hsCRP levels > 7.5 mg/l may suggest infection that can limit the use of this marker for estimation of CVD risk. PERFORMED BY: [place] [address] PATHOLOGIST CRANE OPERATOR DAYANA MONTES M.D. Performed By: #### H SCRP, CK, CMP, CBC, FE and TIBC, LIPID #### [address] Iron [Mass/volume] in Serum or PlasmaOrdered By: Kassandra Klein on 04-17-2023 Iron [Mass/Vol] 91 ug/dL Normal 50-212 [facility] Comment on above: Performed By: #### H SCRP, CK, CMP, CBC, FE and TIBC, LIPID #### [facility] [address] Iron and TIBC Profileon 03-30 % Iron Saturation 22.4 % Normal 20-50 [facility] Comment on above: Performed By: #### H SCRP, CK, CMP, CBC, FE and TIBC, LIPID #### [facility] [address] Total Iron Binding Capacity 407 ug/dL Normal 255-450 [facility] Comment on above: Performed By: #### H SCRP, CK, CMP, CBC, FE and TIBC, LIPID #### [facility] [address] [place] [id number] [facility] Iron binding capacity [Mass/ volume] in Serum or PlasmaOrdered By: Kassandra Vázquezc on 04-17-2023 Iron binding capacity [Mass/Vol] 407 ug/dL 255-450 [facility] Iron saturation [Mass Fracti on] in Serum or PlasmaOrdered By: Kassandra Vázquezc on 04-17-2023 Iron saturation [Mass fraction] 22.4 % 20-50 [facility] Leukocytes [#/volume] correc alyse for nucleated erythrocytes in Blood by Automated counOrdered By: Kassandra Klein on 04-17-2023 WBC corrected for nucl RBC Auto (Bld) [#/Vol] 8.8 10*3/uL 3.8-11.6 [facility] Leukocytes [#/volume] in Blo od by Automated countOrdered By: Kassandra Klein on 04-17-2023 WBC (Bld) [#/Vol] 8.8 10*3/uL Normal 3.8-11.6 [facility] Comment on above: Performed By: #### H SCRP, CK, CMP, CBC, FE and TIBC, LIPID #### [facility] [address] Lipid Panelon 04-17-2023 LDL Cholesterol,Calculated 118 mg/dL High 0-100 [facility] Comment on above: Result Comment: LDL ATP III CLASSIFICATION LDL less than 100 mg/dL Optimal LDL 100-129 mg/dL Near or above optimal LDL 130-159 mg/dL Borderline high LDL 160-189 mg/dL High LDL greater than 189 mg/dL Very high Performed By: #### H SCRP, CK, CMP, CBC, FE and TIBC, LIPID #### [facility] [address] [place] [id number] [facility] Triglyceride w/Reflex 122 mg/dL Normal 0-149 [facility] Comment on above: Result Comment: TRIG ATP III CLASSIFICATION TRIG less than 150 mg/dL Normal TRIG 150-199 mg/dL Borderline high TRIG 200-500 mg/dL High TRIG greater than 500 mg/dL Very high Standard traceable to the Center for Disease Conrtrol and Prevention (CDC) test method. Performed By: #### H SCRP, CK, CMP, CBC, FE and TIBC, LIPID #### [address] VLDL CHOLESTEROL 24 mg/dL Normal [facility] Comment on above: Performed By: #### H SCRP, CK, CMP, CBC, FE and TIBC, LIPID #### [address] Lymphocytes [#/volume] in Bl ood by Automated countOrdered By: Kassandra Klein on 04-17-2023 Lymphocytes (Bld) [#/Vol] 2.6 10*3/uL Normal 1.00-4.8 [facility] Comment on above: Performed By: #### H SCRP, CK, CMP, CBC, FE and TIBC, LIPID #### [address] Lymphocytes/100 leukocytes i n Blood by Automated countOrdered By: Kassandra Klein on 04-17-2023 Lymphocytes/100 WBC (Bld) 29.5 % Normal . [facility] Comment on above: Performed By: #### H SCRP, CK, CMP, CBC, FE and TIBC, LIPID #### [address] MCH [Entitic mass] by Automa alyse countOrdered By: Kassandra Klein on 04-17-2023 MCH (RBC) [Entitic mass] 30.9 pg Normal 24.7-34.3 [facility] Comment on above: Performed By: #### H SCRP, CK, CMP, CBC, FE and TIBC, LIPID #### [address] MCHC Auto (RBC) [Mass/Vol]Or dered By: Kassandra Klein on 04-17-2023 MCHC (RBC) [Mass/Vol] 33.6 g/dL 32.0-35.0 [facility] MCV [Entitic volume] by Auto mated countOrdered By: Kassandra Klein on 04-17-2023 MCV (RBC) [Entitic vol] 91.8 fL Normal 80-100 [facility] Comment on above: Performed By: #### H SCRP, CK, CMP, CBC, FE and TIBC, LIPID #### [facility] [address] Neutrophils [#/volume] in Bl ood by Automated countOrdered By: Kassandra Klein on 04-17-2023 Neutrophils (Bld) [#/Vol] 5.3 10*3/uL Normal 1.8-7.7 [facility] Comment on above: Performed By: #### H SCRP, CK, CMP, CBC, FE and TIBC, LIPID #### [facility] [address] [place] [address] No Panel InformationOrdered By: Kassandra Klein on 04-17-2023 Estimated GFR (CKD-EPI) > 60.0 mL/Min [facility] Creatinine Clearance (Chem N/A [facility] Nucleated erythrocytes [Pres ence] in Blood by Automated countOrdered By: Kassandra Klein on 04-17-2023 Nucleated RBC Auto Ql (Bld) 0.1 /100{WBC} 0-0.5 [facility] Platelet mean volume [Entiti c volume] in Blood by Automated countOrdered By: Kassandra Klein on 04-17-2023 Platelet mean volume (Bld) [Entitic vol] 10.0 fL Normal 6.3-10.7 [facility] Comment on above: Performed By: #### H SCRP, CK, CMP, CBC, FE and TIBC, LIPID #### [facility] [address] [place] [address] Platelets [#/volume] in Bloo d by Automated countOrdered By: Kassandra Klein on 04-17-2023 Platelets (Bld) [#/Vol] 274 10*3/uL Normal 150-450 [facility] Comment on above: Performed By: #### H SCRP, CK, CMP, CBC, FE and TIBC, LIPID #### [facility] [address] Potassium [Moles/volume] in Serum or PlasmaOrdered By: Kassandra Klein on 04-17-2023 Potassium [Moles/Vol] 4.4 mmol/L Normal 3.5-5.1 [facility] Comment on above: Performed By: #### H SCRP, CK, CMP, CBC, FE and TIBC, LIPID #### [facility] [address] [place] [id number] [facility] Protein [Mass/volume] in Ser um or PlasmaOrdered By: Kassandra Klein on 04-17-2023 Protein [Mass/Vol] 7.6 g/dL Normal 6.4-8.9 [facility] Comment on above: Performed By: #### H SCRP, CK, CMP, CBC, FE and TIBC, LIPID #### [facility] [address] Respiratory (Upper) Panel, P CRon 04-17-2023 Respiratory (Upper) Panel, PCR Reason for Exam Viral upper respiratory tract infection Reason for Exam: Viral upper respiratory tract infection Adenovirus Not detected Bordetella parapertussis Not detected Chlamydia pneumoniae Not detected Coronavirus 229E Not detected Coronavirus HKU1 Not detected Coronavirus NL63 Not detected Coronavirus OC43 Not detected Influenza A Not detected Influenza B Not detected Human Metapneumovirus Not detected Mycoplasma pneumoniae Not detected Parainfluenza Virus 1 Not detected Parainfluenza Virus 2 Not detected Parainfluenza Virus 3 Not detected Parainfluenza Virus 4 Not detected Bordetella pertussis-ptxP Not detected Human Rhino/Enterovirus Not detected Resp. Syncytial Virus Not detected COVID-19 Detected/Not Detected Not detected Blank Space -- FLUA TEST INCLUDES Influenza A tests for the following clinically FLUA TEST INCLUDES significant subtypes: FLUA TEST INCLUDES - Influenza A FLUA TEST INCLUDES - Influenza A H1 FLUA TEST INCLUDES - Influenza A H1 2009 FLUA TEST INCLUDES - Influenza A H3 Blank Space -- PERFORMED BY: [place] [address] PATHOLOGIST CRANE OPERATOR DAYANA MONTES M.D. Normal [facility] Comment on above: Performed By: #### B IOFIRECOVNOTDE, RESP PANEL UPP. #### [address] Respiratory pathogens DNA an d RNA panel - Nasopharynx by GINETTE with non-probe detectionOrdered By: Kassandra Klein on 04-17-2023 Respiratory pathogens DNA and RNA panel GINETTE+non-probe (Nph) [facility] Serum globulin measurement b y calculation (mass/volume)Ordered By: Kassandra Klein on 04-17-2023 Globulin (S) [Mass/Vol] 3.1 g/dL Normal [facility] Comment on above: Performed By: #### H SCRP, CK, CMP, CBC, FE and TIBC, LIPID #### [address] Serum or plasma albumin/glob ulin mass ratioOrdered By: Kassandra Klein on 04-17-2023 Albumin/Globulin [Mass ratio] 1.5 {ratio} [facility] Comment on above: Performed By: #### H SCRP, CK, CMP, CBC, FE and TIBC, LIPID #### [facility] [address] [place] [address] Serum or plasma anion gap de terminationOrdered By: Kassandra Klein on 04-17-2023 Anion gap [Moles/Vol] 13.0 mmol/L Normal 6.0-15.0 [facility] [place] [facility] Comment on above: Performed By: #### H SCRP, CK, CMP, CBC, FE and TIBC, LIPID #### [address] Serum or plasma high density lipoprotein (HDL) cholesterol measurementOrdered By: Kassandra Klein on 04-17-2023 Cholesterol in HDL [Mass/Vol] 43 mg/dL Normal 23-92 [facility] Comment on above: HDL CHOL ATP-III CLA SSIFICATION Cardiovascular RiskHDL > or equal to 60 mg/dL LOWHDL < 40 mg/dL HIGH Result Comment: HDL CHOL ATP-III CLASSIFICATION Cardiovascular Risk HDL > or equal to 60 mg/dL LOW HDL < 40 mg/dL HIGH Performed By: #### H SCRP, CK, CMP, CBC, FE and TIBC, LIPID #### [address] Serum or plasma total choles terol/high density lipoprotein (HDL) cholesterol mass ratOrdered By: Kassandra Klein on 04-17-2023 Cholesterol.total/Alba sterol in HDL [Mass ratio] 4.3 {ratio} Normal <5.0 [facility] Comment on above: Result Comment: PERF ORMED BY: [place] [address] PATHOLOGIST CRANE OPERATOR DAYANA MONTES M.D. Performed By: #### H SCRP, CK, CMP, CBC, FE and TIBC, LIPID #### [place] [address] [place] Sodium [Moles/volume] in Ser um or PlasmaOrdered By: Kassandra Klein on 04-17-2023 Sodium [Moles/Vol] 141 mmol/L Normal 136-145 [facility] Comment on above: Performed By: #### H SCRP, CK, CMP, CBC, FE and TIBC, LIPID #### [facility] [address] [place] [address] [place] Transferrin [Mass/volume] in Serum or PlasmaOrdered By: Kassandra Klein on 04-17-2023 Transferrin [Mass/Vol] 291 mg/dL Normal 203-362 [facility] [place] [facility] Comment on above: Performed By: #### H SCRP, CK, CMP, CBC, FE and TIBC, LIPID #### [facility] [address] [place] [address] [place] Triglyceride [Mass/volume] i n Serum or PlasmaOrdered By: Kassandra Klein on 04-17-2023 Triglyceride [Mass/Vol] 122 mg/dL 0-149 [facility] Comment on above: TRIG ATP III CLASSIF ICATIONTRIG less than 150 mg/dL NormalTRIG 150-199 mg/dL Borderline highTRIG 200-500 mg/dL High TRIG greater than 500 mg/dL Very highStandard traceable to the Center for Disease Conrtrol and Prevention (CDC) test method. Urea nitrogen [Mass/volume] in Serum or PlasmaOrdered By: Kassandra Klein on 04-17-2023 Urea nitrogen [Mass/Vol] 16 mg/dL Normal 7-25 [facility] Comment on above: Performed By: #### H SCRP, CK, CMP, CBC, FE and TIBC, LIPID #### [address] XR ankle LT min 3V*on 2022 XR ankle LT min 3V* [facility] [place] [address] [place] [address] XRay Report Signed Patient: London Velasquez MR#: [id number] : 1965 Acct:[id number] Age/Sex: 58 / F ADM Date: 04/16/23 Loc: XD Room: Type: [facility] Attending Dr: Kassandra HADLEY Copies to: JOMAR Carvajal Ordering Provider: JOMAR Carvajal Date of Service: 04/16/23 XR/XR ankle LT min 3V*: Ligamentous laxity of left ankle 3 views left ankle plain film COMPARISON: 03/19/2022 HISTORY: Medial left ankle pain and heel pain. ACUTE FINDINGS: None adequate bony alignment. DEGENERATIVE CHANGE: Unremarkable SOFT TISSUE FINDINGS: Unremarkable JOINT EFFUSION: None POSTOP CHANGES: None BONE MINERALIZATION: Adequate XR/XR ankle LT min 3V* IMPRESSION: No acute findings. Impression dictated by: Stephan Wilson M.D.04/16/2023 1:46 PM Dictation Location: [place] [address] Transcribed By: CHAS 04/16/23 1346 Dictated By: Stephan Wilson DO 04/16/23 1343 Signed By: 04/16/23 1346 Normal [facility] Automated basophil %Ordered By: Kassandra Klein on 03-20-2023 Basophils/100 WBC (Bld) 0.6 % Normal . [facility] Comment on above: Performed By: #### H SCRP, CK, CMP, CBC, FE and TIBC, LIPID #### [address] Automated basophil countOrde red By: Kassandra Klein on 03-20-2023 Basophils (Bld) [#/Vol] 0.1 10*3/uL Normal 0.0-0.2 [facility] Comment on above: Result Comment: PERF ORMED BY: [place] [address] PATHOLOGIST CRANE OPERATOR DAYANA MONTES M.D. Performed By: #### H SCRP, CK, CMP, CBC, FE and TIBC, LIPID #### [address] Automated blood monocyte cou ntOrdered By: Kassandra Klein on 03-20-2023 Monocytes (Bld) [#/Vol] 0.7 10*3/uL Normal 0.0-0.8 [facility] Comment on above: Performed By: #### H SCRP, CK, CMP, CBC, FE and TIBC, LIPID #### [facility] [address] [place] [address] Automated eosinophil %Ordere d By: Kassandra Klein on 03-20-2023 Eosinophils/100 WBC (Bld) 2.0 % Normal . [facility] Comment on above: Performed By: #### H SCRP, CK, CMP, CBC, FE and TIBC, LIPID #### [address] Automated eosinophil countOr dered By: Kassandra Klein on 03-20-2023 Eosinophils (Bld) [#/Vol] 0.2 10*3/uL Normal 0.0-0.45 [facility] Comment on above: Performed By: #### H SCRP, CK, CMP, CBC, FE and TIBC, LIPID #### [address] Automated monocyte %Ordered By: Kassandra Klein on 03-20-2023 Monocytes/100 WBC (Bld) 5.9 % Normal . [facility] Comment on above: Performed By: #### H SCRP, CK, CMP, CBC, FE and TIBC, LIPID #### [address] Automated neutrophil %Ordere d By: Kassandra Klein on 03-20-2023 Neutrophils/100 WBC (Bld) 70.4 % Normal . [facility] Comment on above: Performed By: #### H SCRP, CK, CMP, CBC, FE and TIBC, LIPID #### [address] Complete Blood Count Auto Di ffon 03-20-2023 Mean Corpuscular HGB Conc 32.4 g/dL Normal 32.0-35.0 [facility] Comment on above: Performed By: #### H SCRP, CK, CMP, CBC, FE and TIBC, LIPID #### [address] NRBC% 0.0 /100{WBC} Normal 0-0.5 [facility] Comment on above: Performed By: #### H SCRP, CK, CMP, CBC, FE and TIBC, LIPID #### [address] Erythrocyte distribution wid th [Ratio] by Automated countOrdered By: Kassandra Klein on 03-20-2023 Erythrocyte distribution width (RBC) [Ratio] 16.0 % High 11.9-15.3 [facility] Comment on above: Performed By: #### H SCRP, CK, CMP, CBC, FE and TIBC, LIPID #### [address] Erythrocytes [#/volume] in B lood by Automated countOrdered By: Kassandra Klein on 03-20-2023 RBC (Bld) [#/Vol] 4.48 10*6/uL Normal 3.60-5.00 [facility] Comment on above: Performed By: #### H SCRP, CK, CMP, CBC, FE and TIBC, LIPID #### [facility] [address] Hematocrit [Volume Fraction] of Blood by Automated countOrdered By: Kassandra Klein on 03-20-2023 Hematocrit (Bld) [Volume fraction] 41.1 % Normal 34.0-46.4 [facility] Comment on above: Performed By: #### H SCRP, CK, CMP, CBC, FE and TIBC, LIPID #### [address] Hemoglobin [Mass/volume] in BloodOrdered By: Kassandra Klein on 03-20-2023 Hemoglobin (Bld) [Mass/Vol] 13.4 g/dL Normal 11.8-15.4 [facility] Comment on above: Performed By: #### H SCRP, CK, CMP, CBC, FE and TIBC, LIPID #### [facility] [address] [place] [address] Leukocytes [#/volume] correc alyse for nucleated erythrocytes in Blood by Automated counOrdered By: Kassandra Klein on 03-20-2023 WBC corrected for nucl RBC Auto (Bld) [#/Vol] 11.1 10*3/uL 3.8-11.6 [facility] Leukocytes [#/volume] in Blo od by Automated countOrdered By: Kassandra Klein on 03-20-2023 WBC (Bld) [#/Vol] 11.1 10*3/uL Normal 3.8-11.6 [facility] Comment on above: Performed By: #### H SCRP, CK, CMP, CBC, FE and TIBC, LIPID #### [facility] [address] [place] [address] [place] Lymphocytes [#/volume] in Bl ood by Automated countOrdered By: Kassandra Klein on 03-20-2023 Lymphocytes (Bld) [#/Vol] 2.3 10*3/uL Normal 1.00-4.8 [facility] Comment on above: Performed By: #### H SCRP, CK, CMP, CBC, FE and TIBC, LIPID #### [facility] [address] Lymphocytes/100 leukocytes i n Blood by Automated countOrdered By: Kassandra Klein on 03-20-2023 Lymphocytes/100 WBC (Bld) 21.1 % Normal . [facility] Comment on above: Performed By: #### H SCRP, CK, CMP, CBC, FE and TIBC, LIPID #### [facility] [address] [place] [address] MCH [Entitic mass] by Automa alyse countOrdered By: Kassandra Klein on 03-20-2023 MCH (RBC) [Entitic mass] 29.8 pg Normal 24.7-34.3 [facility] Comment on above: Performed By: #### H SCRP, CK, CMP, CBC, FE and TIBC, LIPID #### [facility] [address] [place] [address] MCHC Auto (RBC) [Mass/Vol]Or dered By: Kassandra Klein on 03-20-2023 MCHC (RBC) [Mass/Vol] 32.4 g/dL 32.0-35.0 [facility] MCV [Entitic volume] by Auto mated countOrdered By: Kassandra Klein on 03-20-2023 MCV (RBC) [Entitic vol] 91.8 fL Normal 80-100 [facility] Comment on above: Performed By: #### H SCRP, CK, CMP, CBC, FE and TIBC, LIPID #### [facility] [address] [place] [address] [place] Neutrophils [#/volume] in Bl ood by Automated countOrdered By: Kassandra Klein on 03-20-2023 Neutrophils (Bld) [#/Vol] 7.8 10*3/uL High 1.8-7.7 [facility] Comment on above: Performed By: #### H SCRP, CK, CMP, CBC, FE and TIBC, LIPID #### [facility] [address] [place] [address] [place] Nucleated erythrocytes [Pres ence] in Blood by Automated countOrdered By: Kassandra Klein on 03-20-2023 Nucleated RBC Auto Ql (Bld) 0.0 /100{WBC} 0-0.5 [facility] Platelet mean volume [Entiti c volume] in Blood by Automated countOrdered By: Kassandra Klein on 03-20-2023 Platelet mean volume (Bld) [Entitic vol] 11.3 fL High 6.3-10.7 [facility] Comment on above: Performed By: #### H SCRP, CK, CMP, CBC, FE and TIBC, LIPID #### [facility] [address] [place] [address] [place] Platelets [#/volume] in Bloo d by Automated countOrdered By: Kassandra Klein on 03-20-2023 Platelets (Bld) [#/Vol] 283 10*3/uL Normal 150-450 [facility] Comment on above: Performed By: #### H SCRP, CK, CMP, CBC, FE and TIBC, LIPID #### [facility] [address] Alanine aminotransferase [En zymatic activity/volume] in Serum or PlasmaOrdered By: Kassandra Klein on 11-28-2022 ALT [Catalytic activity/Vol] 24 U/L 7-52 [facility] Albumin [Mass/volume] in Ser um or Plasma by Bromocresol green (BCG) dye binding methoOrdered By: Kassandra Klein on 11-28-2022 Albumin BCG dye [Mass/Vol] 4.4 g/dL 3.5-5.7 [facility] Alkaline phosphatase [Enzyma tic activity/volume] in Serum or PlasmaOrdered By: Kassandra Klein on 11-28-2022 ALP [Catalytic activity/Vol] 83 U/L 34-104 [facility] Aspartate aminotransferase [ Enzymatic activity/volume] in Serum or PlasmaOrdered By: Kassandra Klein on 11-28-2022 AST [Catalytic activity/Vol] 22 U/L 13-39 [facility] Basophils Auto (Bld) [#/Vol] Ordered By: Kassandra Klein on 11-28-2022 Basophils (Bld) [#/Vol] 0.1 10*3/uL 0.0-0.2 [facility] Basophils/100 WBC Auto (Bld) Ordered By: Kassandra Klein on 11-28-2022 Basophils/100 WBC (Bld) 0.6 % . [facility] Bilirubin.total [Mass/volume ] in Serum or PlasmaOrdered By: Kassandra Klein on 11-28-2022 Bilirubin [Mass/Vol] 0.6 mg/dL 0.3-1.0 [facility] Calcium [Mass/volume] in Ser um or PlasmaOrdered By: Kassandra Klein on 11-28-2022 Calcium [Mass/Vol] 9.6 mg/dL 8.6-10.3 [facility] Carbon dioxide, total [Moles /volume] in Serum or PlasmaOrdered By: Kassandra Klein on 11-28-2022 CO2 [Moles/Vol] 22.7 mmol/L 21.0-31.0 [facility] Chloride [Moles/volume] in S lily or PlasmaOrdered By: Kassandra Klein on 11-28-2022 Chloride [Moles/Vol] 106 mmol/L 98-107 [facility] Cholesterol [Mass/volume] in Serum or PlasmaOrdered By: Kassandra Klein on 11-28-2022 Cholesterol [Mass/Vol] 139 mg/dL 140-200 [facility] Comment on above: Chol less than 200 m g/dl low riskChol 201-239 mg/dl borderline riskChol 240 mg/dl and greater high risk Cholesterol in LDL Calc [Mas s/Vol]Ordered By: Kassandra Klein on 11-28-2022 Cholesterol in LDL [Mass/Vol] 71 mg/dL 0-100 [facility] Comment on above: LDL ATP III CLASSIFI CATIONLDL less than 100 mg/dL OptimalLDL 100-129 mg/dL Near or above optimalLDL 130-159 mg/dL Borderline highLDL 160-189 mg/dL HighLDL greater than 189 mg/dL Very high Cholesterol in VLDL Calc [Ma ss/Vol]Ordered By: Kassandra Klein on 11-28-2022 Cholesterol in VLDL [Mass/Vol] 17 mg/dL [facility] Creatinine [Mass/volume] in Serum or PlasmaOrdered By: Kassandra Klein on 11-28-2022 Creatinine [Mass/Vol] 0.69 mg/dL 0.60-1.20 [facility] Eosinophils Auto (Bld) [#/Vo l]Ordered By: Kassandra Klein on 11-28-2022 Eosinophils (Bld) [#/Vol] 0.1 10*3/uL 0.0-0.45 [facility] Eosinophils/100 WBC Auto (Bl d)Ordered By: Kassandra Klein on 11-28-2022 Eosinophils/100 WBC (Bld) 1.3 % . [facility] Erythrocyte distribution wid th Auto (RBC) [Ratio]Ordered By: Kassandra Klein on 11-28-2022 Erythrocyte distribution width (RBC) [Ratio] 14.6 % 11.9-15.3 [facility] Globulin Calc (S) [Mass/Vol] Ordered By: Kassandra Klein on 11-28-2022 Globulin (S) [Mass/Vol] 3.2 g/dL [facility] Glucose [Mass/volume] in Ser um or PlasmaOrdered By: Kassandra Klein on 11-28-2022 Glucose [Mass/Vol] 144 mg/dL 70-100 [facility] Comment on above: ADA recommended refe rence rangeRandom Glucose Reference Range is dependent on time and content of last meal. Glucose of more than 200 mg/dL in a nonstressed, ambulatory subject supports the diagnosis of Diabetes Mellitus. Hematocrit Auto (Bld) [Volum e fraction]Ordered By: Kassandra Klein on 11-28-2022 Hematocrit (Bld) [Volume fraction] 40.4 % 34.0-46.4 [facility] Hemoglobin [Mass/volume] in BloodOrdered By: Kassandra Klein on 11-28-2022 Hemoglobin (Bld) [Mass/Vol] 13.5 g/dL 11.8-15.4 [facility] Iron [Mass/volume] in Serum or PlasmaOrdered By: Kassandra Klein on 11-28-2022 Iron [Mass/Vol] 76 ug/dL 50-212 [facility] Iron binding capacity [Mass/ volume] in Serum or PlasmaOrdered By: Kassandra Klein on 11-28-2022 Iron binding capacity [Mass/Vol] 458 ug/dL 255-450 [facility] Iron saturation [Mass Fracti on] in Serum or PlasmaOrdered By: Kassandra Klein on 11-28-2022 Iron saturation [Mass fraction] 16.6 % 20-50 [facility] Leukocytes [#/volume] correc alyse for nucleated erythrocytes in Blood by Automated counOrdered By: Kassandra Klein on 11-28-2022 WBC corrected for nucl RBC Auto (Bld) [#/Vol] 10.9 10*3/uL 3.8-11.6 [facility] Lymphocytes Auto (Bld) [#/Vo l]Ordered By: Kassandra Klein on 11-28-2022 Lymphocytes (Bld) [#/Vol] 2.4 10*3/uL 1.00-4.8 [facility] Lymphocytes/100 WBC Auto (Bl d)Ordered By: Kassandra Klein on 11-28-2022 Lymphocytes/100 WBC (Bld) 22.3 % . [facility] MCH Auto (RBC) [Entitic mass ]Ordered By: Kassandra Klein on 11-28-2022 MCH (RBC) [Entitic mass] 30.7 pg 24.7-34.3 [facility] MCHC Auto (RBC) [Mass/Vol]Or dered By: Kassandra Klein on 11-28-2022 MCHC (RBC) [Mass/Vol] 33.4 g/dL 32.0-35.0 [facility] MCV Auto (RBC) [Entitic vol] Ordered By: Kassandra Klein on 11-28-2022 MCV (RBC) [Entitic vol] 92.0 fL 80-100 [facility] Monocytes Auto (Bld) [#/Vol] Ordered By: Kassandra Klein on 11-28-2022 Monocytes (Bld) [#/Vol] 0.6 10*3/uL 0.0-0.8 [facility] Monocytes/100 WBC Auto (Bld) Ordered By: Kassandra Klein on 11-28-2022 Monocytes/100 WBC (Bld) 5.4 % . [facility] Neutrophils Auto (Bld) [#/Vo l]Ordered By: Kassandra Klein on 11-28-2022 Neutrophils (Bld) [#/Vol] 7.7 10*3/uL 1.8-7.7 [facility] Neutrophils/100 WBC Auto (Bl d)Ordered By: Kassandra Klein on 11-28-2022 Neutrophils/100 WBC (Bld) 70.4 % . [facility] No Panel InformationOrdered By: Kassandra Klein on 11-28-2022 Estimated GFR (CKD-EPI) > 60.0 mL/Min [facility] Creatinine Clearance (Chem N/A [facility] Nucleated erythrocytes [Pres ence] in Blood by Automated countOrdered By: Kassandra Klein on 11-28-2022 Nucleated RBC Auto Ql (Bld) 0.2 /100{WBC} 0-0.5 [facility] Platelet mean volume Auto (B ld) [Entitic vol]Ordered By: Kassandra Klein on 11-28-2022 Platelet mean volume (Bld) [Entitic vol] 10.3 fL 6.3-10.7 [facility] Platelets Auto (Bld) [#/Vol] Ordered By: Kassandra Klein on 11-28-2022 Platelets (Bld) [#/Vol] 259 10*3/uL 150-450 [facility] Potassium [Moles/volume] in Serum or PlasmaOrdered By: Kassandra Klein on 11-28-2022 Potassium [Moles/Vol] 3.8 mmol/L 3.5-5.1 [facility] Protein [Mass/volume] in Ser um or PlasmaOrdered By: Kassandra Klein on 11-28-2022 Protein [Mass/Vol] 7.6 g/dL 6.4-8.9 [facility] RBC Auto (Bld) [#/Vol]Ordere d By: Kassandra Klein on 11-28-2022 RBC (Bld) [#/Vol] 4.39 10*6/uL 3.60-5.00 [facility] Serum or plasma albumin/glob ulin mass ratioOrdered By: Kassandra Klein on 11-28-2022 Albumin/Globulin [Mass ratio] 1.4 {ratio} [facility] Serum or plasma anion gap de terminationOrdered By: Kassandra Klein on 11-28-2022 Anion gap [Moles/Vol] 14.1 mmol/L 6.0-15.0 [facility] Serum or plasma high density lipoprotein (HDL) cholesterol measurementOrdered By: Kassandra Klein on 11-28-2022 Cholesterol in HDL [Mass/Vol] 50 mg/dL 35-85 [facility] Comment on above: HDL CHOL ATP-III CLA SSIFICATION Cardiovascular RiskHDL > or equal to 60 mg/dL LOWHDL < 40 mg/dL HIGH Serum or plasma total choles terol/high density lipoprotein (HDL) cholesterol mass ratOrdered By: Kassandra Klein on 11-28-2022 Cholesterol.total/Alba sterol in HDL [Mass ratio] 2.8 {ratio} <5.0 [facility] Sodium [Moles/volume] in Ser um or PlasmaOrdered By: Kassandra Klein on 11-28-2022 Sodium [Moles/Vol] 139 mmol/L 136-145 [facility] Thyrotropin [Units/volume] i n Serum or PlasmaOrdered By: Kassandra Klein on 11-28-2022 TSH Qn 0.86 m[IU]/L 0.45-5.33 [facility] Transferrin [Mass/volume] in Serum or PlasmaOrdered By: Kassandra Klein on 11-28-2022 Transferrin [Mass/Vol] 327 mg/dL 203-362 [facility] Triglyceride [Mass/volume] i n Serum or PlasmaOrdered By: Kassandra Klein on 11-28-2022 Triglyceride [Mass/Vol] 89 mg/dL 0-149 [facility] Comment on above: TRIG ATP III CLASSIF ICATIONTRIG less than 150 mg/dL NormalTRIG 150-199 mg/dL Borderline highTRIG 200-500 mg/dL High TRIG greater than 500 mg/dL Very highStandard traceable to the [facility] Disease Conrtrol and Prevention (CDC) test method. Urea nitrogen [Mass/volume] in Serum or PlasmaOrdered By: Kassandra Klein on 11-28-2022 Urea nitrogen [Mass/Vol] 13 mg/dL 7-25 [facility] Vitamin D+Metabolites [Mass/ volume] in Serum or PlasmaOrdered By: Kassandra Klein on 11-28-2022 Vitamin D+Metabolites [Mass/Vol] 43.0 ng/mL 30-100 [facility] Comment on above: VITAMIN D STATUS 25( [place])VITAMIN D RANGE (ng/mL) Deficient <20 Insufficient 20 to <30Sufficient 30 to 100Reference: Noemí MF,Reese BERNAL, Zaria LI, et al. Evaluation,treatment, and prevention of vitamin D deficiency; an Endocrine Society clinical practice guideline. JCEM. 2010; 96(7):1911-30. WBC Auto (Bld) [#/Vol]Ordere d By: Kassandra Klein on 11-28-2022 WBC (Bld) [#/Vol] 10.9 10*3/uL 3.8-11.6 [facility] Glucose Glucometer (BldC) [M ass/Vol]Ordered By: Huey Bliss on 11-14-2022 Glucose [Mass/Vol] 138 mg/dL [facility] Comment on above: Random Glucose Refer ence Range is dependent on time and content of last meal. Glucose of more than 200 mg/dL in a nonstressed, ambulatory subject supports the diagnosis of Diabetes Mellitus. HPV 16+18+31+33+35+39+45+51+ 52+56+58+59+68 DNA cervix probe + signal amplificOrdered By: Kassandra Klein on 09-12-2022 HPV 16+18+31+33+35+39+45+51 +52+56+58+59+68 DNA Probe+sig amp Ql (Cvx) Positive Negative [facility] Comment on above: This nucleic acid am plification test detects fourteen high-risk HPV types (16,18,31,33,35,39,45,51,52,56,58,59,66,68)without differentiation. Laboratory - Microbiology an d Antimicrobial susceptibilityOrdered By: Kassandra Klein on 09-12-2022 N. gonorrhoeae DNA GINETTE+probe Ql (Unsp spec) Negative Negative [facility] Comment on above: Performed at: =[address], [place] [address] Director: Danyell Capone MD, Phone: [phone] No Panel InformationOrdered By: Kassandra Klein on 09-12-2022 Laine albicans (GINETTE) Negative Negative [facility] Comment on above: This test was develo ped and its performance characteristicsdetermined by [employer]. It has not been cleared orapproved by the Food and Drug Administration. Laine glabrata (GINETTE) Negative Negative [facility] Comment on above: This test was develo ped and its performance characteristicsdetermined by [employer]. It has not been cleared orapproved by the Food and Drug Administration. Chlamydia trachomatis (GINETTE) (LAB) Negative Negative [facility] IG Pap w/Ct-Ng Age Based (Off-Site) Note . [facility] Comment on above: TESTS RESULT FLAG UN ITS REF RANGE LAB - Clinician Provided Cytology Information No. of containers..01 ThinPrep VialAge Algo ACOG Stacie... 30-65 01 FLAG LEGEND: L-Low Normal,H-High Normal,LL-Alert Low,HH-Alert High <-Panic Low,>-Panic High,A-Abnormal,AA-Critical Abnormal ------Performed at:01 =G [facility] [address] [place] [address] Danyell Capone MD, Thin Prep Pap Comment Note . [facility] Comment on above: TESTS RESULT FLAG UN ITS REF RANGE LAB -DIAGNOSIS: [A] 02 EPITHELIAL CELL ABNORMALITY. LOW GRADE SQUAMOUS INTRAEPITHELIAL LESION (LSIL).Recommendation: [A] 02 Suggest follow up as clinically appropriate.Specimen adequacy: 02 Satisfactory for evaluation. Endocervical and/or squamous metaplastic cells (endocervical component) are present.Performed by: 02 Kiki Piedra, Inventory Accountant (ASCP)Electronically si... 02 Jazmin Bishop MD, Pathologist. 02Pathologist ICD10: 02 R87.612Note: Note 02 The Pap smear is a screening test designed to aid in the detection of premalignant and malignant conditions of the uterine cervix. It is not a diagnostic procedure and should not be used as the sole means of detecting cervical cancer. Both false-positive and false-negative reports do occur.Test Methodology: Note 02 This liquid based ThinPrep(R) pap test was screened with the use of an image guided system. ----- FLAG LEGEND: L-Low Normal,H-High Normal,LL-Alert Low,HH-Alert High <-Panic Low,>-Panic High,A-Abnormal,AA-Critical Abnormal ------Performed at:[address] [facility] [place] [address] Danyell Capone MD, Trichomonas vaginalis (GINETTE) Negative Negative [facility] Vaginal fluid Atopobium vagi raza DNA detection by probe and target amplification methoOrdered By: Kassandra Klein on 09-12-2022 A. vaginae DNA GINETTE+probe Ql (Vag fld) High - 2 Score . [facility] Vaginal fluid Megasphaera sp ecies type 1 DNA detection by probe and target amplificatOrdered By: Kassandra Klein on 09-12-2022 Megasphaera sp type 1 DNA GINETTE+probe Ql (Vag fld) High - 2 Score . [facility] Comment on above: Calculate total scor e by adding the 3 individual bacterialvaginosis (BV) marker scores together. Total score isinterpreted as follows:Total score 0-1: Indicates the absence of BV.Total score 2: Indeterminate for BV. Additional clinical data should be evaluated to establish a diagnosis.Total score 3-6: Indicates the presence of BV.This test was developed and its performance characteristicsdetermined by [employer]. It has not been cleared or approvedby the Food and Drug Administration. Vaginal fluid bacterial vagi nosis associated bacterium 2 DNA detection by probe and tOrdered By: Kassandra Klein on 09-12-2022 Bacterial vaginosis associated bacterium 2 DNA GINETTE+probe Ql (Vag fld) High - 2 Score . [facility] COVID-19 Detected/Not Detect edOrdered By: Kassandra Klein on 08-13-2022 SARS-CoV-2 (COVID-19) RNA GINETTE+non-probe Ql (Nph) Not detected Not Detecte [facility] Comment on above: This is a duplicate RP2.1 COVID (PCR) result to be used for statistical tracking purpose only. Respiratory pathogens DNA an d RNA panel - Nasopharynx by GINETTE with non-probe detectionOrdered By: Kassandra Klein on 08-13-2022 Respiratory pathogens DNA and RNA panel GINETTE+non-probe (Nph) [facility] Respiratory pathogens DNA and RNA panel GINETTE+non-probe (Nph) [facility] Albumin [Mass/volume] in Ser um or PlasmaOrdered By: Kassandra Klein on 08-07-2022 Albumin [Mass/Vol] 3.9 g/dL 3.2-5.5 [facility] Basophils Auto (Bld) [#/Vol] Ordered By: Kassandra Klein on 08-07-2022 Basophils (Bld) [#/Vol] 0.1 10*3/uL 0.0-0.2 [facility] Basophils/100 WBC Auto (Bld) Ordered By: Kassandra Klein on 08-07-2022 Basophils/100 WBC (Bld) 0.6 % . [facility] Cholesterol [Mass/volume] in Serum or PlasmaOrdered By: Kassandra Klein on 08-07-2022 Cholesterol [Mass/Vol] 173 mg/dL 140-200 [facility] Comment on above: Chol less than 200 m g/dl low riskChol 201-239 mg/dl borderline riskChol 240 mg/dl and greater high risk Cholesterol in LDL Calc [Mas s/Vol]Ordered By: Kassandra Klein on 08-07-2022 Cholesterol in LDL [Mass/Vol] 88 mg/dL 0-100 [facility] Comment on above: LDL ATP III CLASSIFI CATIONLDL less than 100 mg/dL OptimalLDL 100-129 mg/dL Near or above optimalLDL 130-159 mg/dL Borderline highLDL 160-189 mg/dL HighLDL greater than 189 mg/dL Very high Cholesterol in VLDL Calc [Ma ss/Vol]Ordered By: Kassandra Klein on 08-07-2022 Cholesterol in VLDL [Mass/Vol] 26 mg/dL [facility] Creatinine and Glomerular fi ltration rate.predicted panel (S/P/Bld)Ordered By: Kassandra Klein on 08-07-2022 Creatinine [Mass/Vol] 0.92 mg/dL 0.44-1.03 [facility] Eosinophils Auto (Bld) [#/Vo l]Ordered By: Kassandra Klein on 08-07-2022 Eosinophils (Bld) [#/Vol] 0.0 10*3/uL 0.0-0.45 [facility] Eosinophils/100 WBC Auto (Bl d)Ordered By: Kassandra Klein on 08-07-2022 Eosinophils/100 WBC (Bld) 0.3 % . [facility] Erythrocyte distribution wid th Auto (RBC) [Ratio]Ordered By: Kassandra Klein on 08-07-2022 Erythrocyte distribution width (RBC) [Ratio] 17.5 % 11.9-15.3 [facility] Estimated glomerular filtrat ion rate (GFR) non- AmericanOrdered By: Kassandra Klein on 08-07-2022 GFR/1.73 sq M.predicted among non-blacks MDRD (S/P/Bld) [Vol rate/Area] > 60 mL/Min [facility] Globulin Calc (S) [Mass/Vol] Ordered By: Kassandra Klein on 08-07-2022 Globulin (S) [Mass/Vol] 3.3 g/dL [facility] Glucose mean value [Mass/vol ume] in Blood Estimated from glycated hemoglobinOrdered By: Kassandra Klein on 08-07-2022 Average glucose Estimated from glycated hemoglobin (Bld) [Mass/Vol] 128 mg/dL [facility] Hematocrit Auto (Bld) [Volum e fraction]Ordered By: Kassandra Klein on 08-07-2022 Hematocrit (Bld) [Volume fraction] 39.8 % 34.0-46.4 [facility] Hemoglobin A1c percentageOrd ered By: Kassandra Klein on 08-07-2022 HbA1c (Bld) [Mass fraction] 6.1 % 4.3-5.6 [facility] Comment on above: Increased risk for d iabetes: 5.7 - 6.4diabetes: >6.4glycemic control for adults with diabetes: <7.0 Hemoglobin [Mass/volume] in BloodOrdered By: Kassandra Klein on 08-07-2022 Hemoglobin (Bld) [Mass/Vol] 12.6 g/dL 11.8-15.4 [facility] Leukocytes [#/volume] correc alyse for nucleated erythrocytes in Blood by Automated counOrdered By: Kassandra Klein on 08-07-2022 WBC corrected for nucl RBC Auto (Bld) [#/Vol] 14.7 10*3/uL 3.8-11.6 [facility] Lymphocytes Auto (Bld) [#/Vo l]Ordered By: Kassandra Vázquezc on 08-07-2022 Lymphocytes (Bld) [#/Vol] 2.0 10*3/uL 1.00-4.8 [facility] Lymphocytes/100 WBC Auto (Bl d)Ordered By: Kassandra Spasic on 08-07-2022 Lymphocytes/100 WBC (Bld) 13.4 % . [facility] MCH Auto (RBC) [Entitic mass ]Ordered By: Kassandra Vázquezc on 08-07-2022 MCH (RBC) [Entitic mass] 29.8 pg 24.7-34.3 [facility] MCHC Auto (RBC) [Mass/Vol]Or dered By: Kassandra Sealssic on 08-07-2022 MCHC (RBC) [Mass/Vol] 31.7 g/dL 32.0-35.0 [facility] MCV Auto (RBC) [Entitic vol] Ordered By: Kassandra Vázquezc on 08-07-2022 MCV (RBC) [Entitic vol] 94.1 fL 80-100 [facility] Monocytes Auto (Bld) [#/Vol] Ordered By: Kassandra Vázquezc on 08-07-2022 Monocytes (Bld) [#/Vol] 0.6 10*3/uL 0.0-0.8 [facility] Monocytes/100 WBC Auto (Bld) Ordered By: Kassandra Sealssic on 08-07-2022 Monocytes/100 WBC (Bld) 4.4 % . [facility] Neutrophils Auto (Bld) [#/Vo l]Ordered By: Kassandra Vázquezc on 08-07-2022 Neutrophils (Bld) [#/Vol] 11.9 10*3/uL 1.8-7.7 [facility] Neutrophils/100 WBC Auto (Bl d)Ordered By: Kassandra Sealssic on 08-07-2022 Neutrophils/100 WBC (Bld) 81.3 % . [facility] No Panel InformationOrdered By: Kassandra Klein on 08-07-2022 Estimated GFR () > 60 mL/Min [facility] Comment on above: GFR estimated refere nce range: According to KDOQI guidelines, <60 ml/min/1.73m2 is sufficient to diagnose a patient with chronic kidney disease. Pharmacy Creatinine Clearance (Chem N/A [facility] Nucleated erythrocytes [Pres ence] in Blood by Automated countOrdered By: Kassandra Klein on 08-07-2022 Nucleated RBC Auto Ql (Bld) 0.0 /100{WBC} 0-0.5 [facility] Platelet mean volume Auto (B ld) [Entitic vol]Ordered By: Kassandra Klein on 08-07-2022 Platelet mean volume (Bld) [Entitic vol] 9.5 fL 6.3-10.7 [facility] Platelets Auto (Bld) [#/Vol] Ordered By: Kassandra Klein on 08-07-2022 Platelets (Bld) [#/Vol] 260 10*3/uL 150-450 [facility] Protein [Mass/volume] in Ser um or PlasmaOrdered By: Kassandra Klein on 08-07-2022 Protein [Mass/Vol] 7.2 g/dL 6.1-7.9 [facility] RBC Auto (Bld) [#/Vol]Ordere d By: Kassandra Klein on 08-07-2022 RBC (Bld) [#/Vol] 4.23 10*6/uL 3.60-5.00 [facility] Serum or plasma alanine chou otransferase measurement without P-5'-P (enzymatic activiOrdered By: Kassandra Klein on 08-07-2022 ALT No additional P-5'-P [Catalytic activity/Vol] 26 U/L 10-60 [facility] Serum or plasma albumin/glob ulin mass ratioOrdered By: Kassandra Klein on 08-07-2022 Albumin/Globulin [Mass ratio] 1.2 {ratio} [facility] Serum or plasma alkaline patricia sphatase measurement (enzymatic activity/volume)Ordered By: Kassandra Klein on 08-07-2022 ALP [Catalytic activity/Vol] 73 U/L 32-92 [facility] Serum or plasma anion gap de terminationOrdered By: Kassandra Klein on 08-07-2022 Anion gap [Moles/Vol] 12.7 mmol/L 6.0-15.0 [facility] Serum or plasma aspartate am inotransferase measurement (enzymatic activity/volume)Ordered By: Kassandra Kleni on 08-07-2022 AST [Catalytic activity/Vol] 19 U/L 10-42 [facility] Serum or plasma calcium dee urement (mass/volume)Ordered By: Kassandra Klein on 08-07-2022 Calcium [Mass/Vol] 9.2 mg/dL 8.2-10.2 [facility] Serum or plasma chloride kelsey surement (moles/volume)Ordered By: Kassandra Klein on 08-07-2022 Chloride [Moles/Vol] 107 mmol/L 95-114 [facility] Serum or plasma glucose dee urement (mass/volume)Ordered By: Kassandra Klein on 08-07-2022 Glucose [Mass/Vol] 128 mg/dL 70-100 [facility] Comment on above: ADA recommended refe rence rangeRandom Glucose Reference Range is dependent on time and content of last meal. Glucose of more than 200 mg/dL in a nonstressed, ambulatory subject supports the diagnosis of Diabetes Mellitus. Serum or plasma high density lipoprotein (HDL) cholesterol measurementOrdered By: Kassandra Klein on 08-07-2022 Cholesterol in HDL [Mass/Vol] 59 mg/dL 35-85 [facility] Comment on above: HDL CHOL ATP-III CLA SSIFICATION Cardiovascular RiskHDL > or equal to 60 mg/dL LOWHDL < 40 mg/dL HIGH Serum or plasma potassium me asurement (moles/volume)Ordered By: Kassandra Klein on 08-07-2022 Potassium [Moles/Vol] 5.0 mmol/L 3.5-5.1 [facility] Serum or plasma sodium measu rement (moles/volume)Ordered By: Kassandra Klein on 08-07-2022 Sodium [Moles/Vol] 137 mmol/L 136-146 [facility] Serum or plasma total biliru bin measurement (mass/volume)Ordered By: Kassandra Klein on 08-07-2022 Bilirubin [Mass/Vol] 0.4 mg/dL 0.3-1.2 [facility] Serum or plasma total carbon dioxide measurement (moles/volume)Ordered By: Kassandra Klein on 08-07-2022 CO2 [Moles/Vol] 22.3 mmol/L 22.0-30.0 [facility] Serum or plasma total choles terol/high density lipoprotein (HDL) cholesterol mass ratOrdered By: Kassandra Klein on 08-07-2022 Cholesterol.total/Alba sterol in HDL [Mass ratio] 2.9 {ratio} <5.0 [facility] Serum or plasma urea nitroge n measurement (mass/volume)Ordered By: Kassandra Klein on 08-07-2022 Urea nitrogen [Mass/Vol] 14 mg/dL 9- [facility] TSH DL <= 0.005 mIU/L QnOrde red By: Kassandra Klein on 08-07-2022 TSH Qn 0.81 m[IU]/L 0.45-5.33 [facility] Triglyceride [Mass/volume] i n Serum or PlasmaOrdered By: Kassandra Klein on 08-07-2022 Triglyceride [Mass/Vol] 132 mg/dL 35-149 [facility] Comment on above: TRIG ATP III CLASSIF ICATIONTRIG less than 150 mg/dL NormalTRIG 150-199 mg/dL Borderline highTRIG 200-500 mg/dL High TRIG greater than 500 mg/dL Very highStandard traceable to the Center for Disease Conrtrol and Prevention (CDC) test method. WBC Auto (Bld) [#/Vol]Ordere d By: Kassandra Klein on 08-07-2022 WBC (Bld) [#/Vol] 14.7 10*3/uL 3.8-11.6 [facility] CCP ANTIBODY IGGon Cyclic citrullinated peptide IgG Qn <20 Units [facility] Cyclic citrullinated peptide IgG Qnon 07-22-2022 CCP Antibody IgG Qualitative Negative Negative [facility] BLOOD TB SCREENon 07-21-2022 M. tuberculosis tuberculin stim IFN-g Ql (Bld) Positive [facility] Mitogen minus Nil >=0.50 IU/mL [facility] TB Gamma Interpretation The result sugge sts an infection with either M. tuberculosis complex and/or any of M. kansasii, M. szulgai, M. marinum, and M. flavescens; however, active and latent infections cannot be distinguished by this test. A positive result may not be reliable if obtained within several months of a Tuberculin Skin Test. Clinical and epidemiological correlation is required. [facility] TB Nil 0.27 IU/mL <=8.00 IU/mL [facility] TB1 Ag minus Nil High <0.35 IU/mL [facility] TB2 Ag minus Nil High <0.35 IU/mL [facility] C-REACTIVE PROTEIN (CRP)on 0 07-20-2022 CRP [Mass/Vol] 0.6 mg/dL <0.9 mg/dL [facility] Comprehensive metabolic 2000 panelon 07-20-2022 Albumin [Mass/Vol] 4.6 g/dL 3.9 - 4.9 g/dL [facility] ALP [Catalytic activity/Vol] 84 U/L 34 - 123 U/L [facility] ALT [Catalytic activity/Vol] 23 U/L 7 - 38 U/L [facility] Anion gap [Moles/Vol] 13 mmol/L 9 - 18 mmol/L [facility] AST [Catalytic activity/Vol] 22 U/L 13 - 35 U/L [facility] Bilirubin [Mass/Vol] 0.4 mg/dL 0.2 - 1 .3 mg/dL [facility] Calcium [Mass/Vol] 10.0 mg/dL 8.5 - 10. 2 mg/dL [facility] Chloride [Moles/Vol] 107 mmol/L High 97 - 10 5 mmol/L [facility] CO2 [Moles/Vol] 19 mmol/L Low 22 - 30 mmol/L [facility] Creatinine [Mass/Vol] 0.87 mg/dL 0.58 - 0.96 mg/dL [facility] Estimated Glomerular Filtration Rate 78 mL/min/1.73m >=60 mL/min/1.7 3m [facility] Glucose [Mass/Vol] 76 mg/dL 74 - 99 mg/dL [facility] Potassium [Moles/Vol] 4.4 mmol/L 3.7 - 5.1 mmol/L [facility] Protein [Mass/Vol] 7.6 g/dL 6.3 - 8.0 g/dL [facility] Sodium [Moles/Vol] 139 mmol/L 136 - 144 mmol/L [facility] Urea nitrogen [Mass/Vol] 14 mg/dL 7 - 21 mg/dL [facility] RHEUMATOID FACTOR BLon 07-20 Rheumatoid factor Qn <16 [facility] CBC W Auto Differential pane l (Bld)on 07-19-2022 Basophils (Bld) [#/Vol] 0.07 10*3/uL <0.11 k/uL [facility] Basophils/100 WBC (Bld) 0.7 % [facility] Differential cell count method Nom (Bld) Auto [facility] Eosinophils (Bld) [#/Vol] 0.25 10*3/uL <0.46 k/uL [facility] Eosinophils/100 WBC (Bld) 2.5 % [facility] Erythrocyte distribution width (RBC) [Ratio] 16.8 % High 11.5 - 15.0 % [facility] Hematocrit (Bld) [Volume fraction] 41.0 % 36.0 - 46.0 % [facility] Hemoglobin (Bld) [Mass/Vol] 13.6 g/dL 11.5 - 15.5 g/dL [facility] Immature granulocytes (Bld) [#/Vol] 0.04 10*3/uL <0.10 k/uL [facility] Immature granulocytes/100 WBC (Bld) 0.4 % [facility] Lymphocytes (Bld) [#/Vol] 3.45 10*3/uL 1.00 - 4.00 k/uL [facility] Lymphocytes/100 WBC (Bld) 34.0 % [facility] MCH (RBC) [Entitic mass] 30.8 pg 26.0 - 34.0 pg [facility] MCHC (RBC) [Mass/Vol] 33.2 g/dL 30.5 - 36.0 g/dL [facility] MCV (RBC) [Entitic vol] 93.0 fL 80.0 - 100.0 fL [facility] Monocytes (Bld) [#/Vol] 0.66 10*3/uL <0.87 k/uL [facility] Monocytes/100 WBC (Bld) 6.5 % [facility] Neutrophils (Bld) [#/Vol] 5.67 10*3/uL 1.45 - 7.50 k/uL [facility] Neutrophils/100 WBC (Bld) 55.9 % [facility] Nucleated RBC (Bld) [#/Vol] <0.01 k/uL [facility] Nucleated RBC/100 WBC (Bld) [Ratio] 0.0 /100 WBC [facility] Platelet mean volume (Bld) [Entitic vol] 12.0 fL 9.0 - 12.7 fL [facility] Platelets (Bld) [#/Vol] 301 10*3/uL 150 - 400 k/uL [facility] RBC (Bld) [#/Vol] 4.41 10*6/uL 3.90 - 5.20 m/uL [facility] WBC (Bld) [#/Vol] 10.14 10*3/uL 3.70 - 11.00 k/uL [facility] ESR Westergren method (Bld) [Velocity]on 07-19-2022 ESR (Bld) [Velocity] 10 mm/h 0 - 20 mm/hr [facility] No Panel Informationon 07-19 [facility] Albumin [Mass/volume] in Ser um or PlasmaOrdered By: Kassandra Klein on 07-16-2022 Albumin [Mass/Vol] 4.2 g/dL 3.2-5.5 [facility] Basophils Auto (Bld) [#/Vol] Ordered By: Kassandra Klein on 07-16-2022 Basophils (Bld) [#/Vol] 0.0 10*3/uL 0.0-0.2 [facility] Basophils/100 WBC Auto (Bld) Ordered By: Kassandra Klein on 07-16-2022 Basophils/100 WBC (Bld) 0.4 % . [facility] C reactive protein [Mass/vol ume] in Serum or PlasmaOrdered By: Kassandra Klein on 07-16-2022 CRP [Mass/Vol] 0.6 mg/dL 0.0-1.0 [facility] CT biopsyOrdered By: Kassandra vance on 07-16-2022 Transferrin [Mass/Vol] 307 mg/dL 180-380 [facility] Cholesterol [Mass/volume] in Serum or PlasmaOrdered By: Kassandra Klein on 07-16-2022 Cholesterol [Mass/Vol] 178 mg/dL 140-200 [facility] Comment on above: Chol less than 200 m g/dl low riskChol 201-239 mg/dl borderline riskChol 240 mg/dl and greater high risk Cholesterol in LDL Calc [Mas s/Vol]Ordered By: Kassandra Klein on 07-16-2022 Cholesterol in LDL [Mass/Vol] 110 mg/dL 0-100 [facility] Comment on above: LDL ATP III CLASSIFI CATIONLDL less than 100 mg/dL OptimalLDL 100-129 mg/dL Near or above optimalLDL 130-159 mg/dL Borderline highLDL 160-189 mg/dL HighLDL greater than 189 mg/dL Very high Cholesterol in VLDL Calc [Ma ss/Vol]Ordered By: Kassandra Klein on 07-16-2022 Cholesterol in VLDL [Mass/Vol] 22 mg/dL [facility] Creatinine and Glomerular fi ltration rate.predicted panel (S/P/Bld)Ordered By: Kassandra Klein on 07-16-2022 Creatinine [Mass/Vol] 0.71 mg/dL 0.44-1.03 [facility] Eosinophils Auto (Bld) [#/Vo l]Ordered By: Kassandra Klein on 07-16-2022 Eosinophils (Bld) [#/Vol] 0.3 10*3/uL 0.0-0.45 [facility] Eosinophils/100 WBC Auto (Bl d)Ordered By: Kassandra Klein on 07-16-2022 Eosinophils/100 WBC (Bld) 3.1 % . [facility] Erythrocyte distribution wid th Auto (RBC) [Ratio]Ordered By: Kassandra Klein on 07-16-2022 Erythrocyte distribution width (RBC) [Ratio] 16.5 % 11.9-15.3 [facility] Erythrocyte sedimentation ra te by Photometric methodOrdered By: Kassandra Klein on 07-16-2022 ESR Photometric method (Bld) [Velocity] 27 mm/hr 0-29 [facility] Estimated glomerular filtrat ion rate (GFR) non- AmericanOrdered By: Kassandra Klein on 07-16-2022 GFR/1.73 sq M.predicted among non-blacks MDRD (S/P/Bld) [Vol rate/Area] > 60 mL/Min [facility] Globulin Calc (S) [Mass/Vol] Ordered By: Kassandra Klein on 07-16-2022 Globulin (S) [Mass/Vol] 3.1 g/dL [facility] Hematocrit Auto (Bld) [Volum e fraction]Ordered By: Kassandra Klein on 07-16-2022 Hematocrit (Bld) [Volume fraction] 39.2 % 34.0-46.4 [facility] Hemoglobin [Mass/volume] in BloodOrdered By: Kassandra Klein on 07-16-2022 Hemoglobin (Bld) [Mass/Vol] 12.6 g/dL 11.8-15.4 [facility] Iron [Mass/volume] in Serum or PlasmaOrdered By: Kassandra Klein on 07-16-2022 Iron [Mass/Vol] 74 ug/dL 40-150 [facility] Iron binding capacity [Mass/ volume] in Serum or PlasmaOrdered By: Kassandra Klein on 07-16-2022 Iron binding capacity [Mass/Vol] 430 ug/dL 255-450 [facility] Iron saturation [Mass Fracti on] in Serum or PlasmaOrdered By: Kassandra Klein on 07-16-2022 Iron saturation [Mass fraction] 17.2 % 20-50 [facility] Leukocytes [#/volume] correc alyse for nucleated erythrocytes in Blood by Automated counOrdered By: Kassandra Klein on 07-16-2022 WBC corrected for nucl RBC Auto (Bld) [#/Vol] 8.6 10*3/uL 3.8-11.6 [facility] Lymphocytes Auto (Bld) [#/Vo l]Ordered By: Kassandra Klein on 07-16-2022 Lymphocytes (Bld) [#/Vol] 2.6 10*3/uL 1.00-4.8 [facility] Lymphocytes/100 WBC Auto (Bl d)Ordered By: Kassandra Klein on 07-16-2022 Lymphocytes/100 WBC (Bld) 30.2 % . [facility] MCH Auto (RBC) [Entitic mass ]Ordered By: Kassandra Klein on 07-16-2022 MCH (RBC) [Entitic mass] 29.6 pg 24.7-34.3 [facility] MCHC Auto (RBC) [Mass/Vol]Or dered By: Kassandra Klein on 07-16-2022 MCHC (RBC) [Mass/Vol] 32.1 g/dL 32.0-35.0 [facility] MCV Auto (RBC) [Entitic vol] Ordered By: Kassandra Klein on 07-16-2022 MCV (RBC) [Entitic vol] 92.2 fL 80-100 [facility] Monocytes Auto (Bld) [#/Vol] Ordered By: Kassandra Klein on 07-16-2022 Monocytes (Bld) [#/Vol] 0.7 10*3/uL 0.0-0.8 [facility] Monocytes/100 WBC Auto (Bld) Ordered By: Kassandra Klein on 07-16-2022 Monocytes/100 WBC (Bld) 7.8 % . [facility] Neutrophils Auto (Bld) [#/Vo l]Ordered By: Kassandra Klein on 07-16-2022 Neutrophils (Bld) [#/Vol] 5.1 10*3/uL 1.8-7.7 [facility] Neutrophils/100 WBC Auto (Bl d)Ordered By: Kassandra Klein on 07-16-2022 Neutrophils/100 WBC (Bld) 58.5 % . [facility] No Panel InformationOrdered By: Kassandra Klein on 07-16-2022 25-Hydroxy Vitamin D Total 18.8 ng/mL 30-100 [facility] Comment on above: VITAMIN D STATUS 25( [place])VITAMIN D RANGE (ng/mL) Deficient <20 Insufficient 20 to <30Sufficient 30 to 100Reference: Noemí MF,Reese [place], Zaria [place], et al. Evaluation,treatment, and prevention of vitamin D deficiency; an Endocrine Society clinical practice guideline. JCEM. 2010; 96(7):1911-30. Estimated GFR () > 60 mL/Min [facility] Comment on above: GFR estimated refere nce range: According to KDOQI guidelines, <60 ml/min/1.73m2 is sufficient to diagnose a patient with chronic kidney disease. Pharmacy Creatinine Clearance (Chem N/A [facility] Nucleated erythrocytes [Pres ence] in Blood by Automated countOrdered By: Kassandra Klein on 07-16-2022 Nucleated RBC Auto Ql (Bld) 0.0 /100{WBC} 0-0.5 [facility] Platelet mean volume Auto (B ld) [Entitic vol]Ordered By: Kassandra Klein on 07-16-2022 Platelet mean volume (Bld) [Entitic vol] 10.3 fL 6.3-10.7 [facility] Platelets Auto (Bld) [#/Vol] Ordered By: Kassandra Klein on 07-16-2022 Platelets (Bld) [#/Vol] 302 10*3/uL 150-450 [facility] Protein [Mass/volume] in Ser um or PlasmaOrdered By: Kassandra Klein on 07-16-2022 Protein [Mass/Vol] 7.3 g/dL 6.1-7.9 [facility] RBC Auto (Bld) [#/Vol]Ordere d By: Kassandra Klein on 07-16-2022 RBC (Bld) [#/Vol] 4.25 10*6/uL 3.60-5.00 [facility] Serum or plasma alanine chou otransferase measurement without P-5'-P (enzymatic activiOrdered By: Kassandra Klein on 07-16-2022 ALT No additional P-5'-P [Catalytic activity/Vol] 24 U/L 10-60 [facility] Serum or plasma albumin/glob ulin mass ratioOrdered By: Kassandra Klein on 07-16-2022 Albumin/Globulin [Mass ratio] 1.4 {ratio} [facility] Serum or plasma alkaline patricia sphatase measurement (enzymatic activity/volume)Ordered By: Kassandra Klein on 07-16-2022 ALP [Catalytic activity/Vol] 69 U/L 32-92 [facility] Serum or plasma anion gap de terminationOrdered By: Kassandra Klein on 07-16-2022 Anion gap [Moles/Vol] 14.5 mmol/L 6.0-15.0 [facility] Serum or plasma aspartate am inotransferase measurement (enzymatic activity/volume)Ordered By: Kassandra Klein on 07-16-2022 AST [Catalytic activity/Vol] 25 U/L 10-42 [facility] Serum or plasma calcium dee urement (mass/volume)Ordered By: Kassandra Klein on 07-16-2022 Calcium [Mass/Vol] 9.5 mg/dL 8.2-10.2 [facility] Serum or plasma chloride kelsey surement (moles/volume)Ordered By: Kassandra Klein on 07-16-2022 Chloride [Moles/Vol] 109 mmol/L 95-114 [facility] Serum or plasma glucose dee urement (mass/volume)Ordered By: Kassandra Klein on 07-16-2022 Glucose [Mass/Vol] 96 mg/dL 70-100 [facility] Comment on above: ADA recommended refe rence rangeRandom Glucose Reference Range is dependent on time and content of last meal. Glucose of more than 200 mg/dL in a nonstressed, ambulatory subject supports the diagnosis of Diabetes Mellitus. Serum or plasma high density lipoprotein (HDL) cholesterol measurementOrdered By: Kassandra Klein on 07-16-2022 Cholesterol in HDL [Mass/Vol] 46 mg/dL 35-85 [facility] Comment on above: HDL CHOL ATP-III CLA SSIFICATION Cardiovascular RiskHDL > or equal to 60 mg/dL LOWHDL < 40 mg/dL HIGH Serum or plasma potassium me asurement (moles/volume)Ordered By: Kassandra Klein on 07-16-2022 Potassium [Moles/Vol] 4.4 mmol/L 3.5-5.1 [facility] Serum or plasma rheumatoid f actor measurement (units/volume)Ordered By: Kassandra Klein on 07-16-2022 Rheumatoid factor Qn [IU]/mL <14.0 [facility] Comment on above: Performed at: [address] [id number] Director: Malachi Ernandez PhD, Phone: [phone] Serum or plasma sodium measu rement (moles/volume)Ordered By: Kassandra Klein on 07-16-2022 Sodium [Moles/Vol] 137 mmol/L 136-146 [facility] Serum or plasma total biliru bin measurement (mass/volume)Ordered By: Kassandra Klein on 07-16-2022 Bilirubin [Mass/Vol] 0.4 mg/dL 0.3-1.2 [facility] Serum or plasma total carbon dioxide measurement (moles/volume)Ordered By: Kassandra Klein on 07-16-2022 CO2 [Moles/Vol] 17.9 mmol/L 22.0-30.0 [facility] Serum or plasma total choles terol/high density lipoprotein (HDL) cholesterol mass ratOrdered By: Kassandra Klein on 07-16-2022 Cholesterol.total/Alba sterol in HDL [Mass ratio] 3.9 {ratio} <5.0 [facility] Serum or plasma urea nitroge n measurement (mass/volume)Ordered By: Kassandra Klein on 07-16-2022 Urea nitrogen [Mass/Vol] 10 mg/dL 9-23 [facility] Serum or plasma uric acid me asurement (mass/volume)Ordered By: Kassandra Klein on 07-16-2022 Urate [Mass/Vol] 5.6 mg/dL 2.6-7.2 [facility] TSH DL <= 0.005 mIU/L QnOrde red By: Kassandra Klein on 07-16-2022 TSH Qn 0.69 m[IU]/L 0.45-5.33 [facility] Triglyceride [Mass/volume] i n Serum or PlasmaOrdered By: Kassandra Klein on 07-16-2022 Triglyceride [Mass/Vol] 110 mg/dL 35-149 [facility] Comment on above: TRIG ATP III CLASSIF ICATIONTRIG less than 150 mg/dL NormalTRIG 150-199 mg/dL Borderline highTRIG 200-500 mg/dL High TRIG greater than 500 mg/dL Very highStandard traceable to the Center for Disease Conrtrol and Prevention (CDC) test method. WBC Auto (Bld) [#/Vol]Ordere d By: Kassandra Klein on 07-16-2022 WBC (Bld) [#/Vol] 8.6 10*3/uL 3.8-11.6 [facility] Albumin [Mass/volume] in Ser um or PlasmaOrdered By: Dwight Irwin on 12-22-2021 Albumin [Mass/Vol] 3.4 g/dL 3.2-5.5 [facility] Basophils Auto (Bld) [#/Vol] Ordered By: Dwight Irwin on 12-22-2021 Basophils (Bld) [#/Vol] 0.0 10*3/uL 0.0-0.2 [facility] Basophils/100 WBC Auto (Bld) Ordered By: Dwight Irwin on 12-22-2021 Basophils/100 WBC (Bld) 0.3 % . [facility] Blood hemoglobin measurement (mass/volume)Ordered By: Dwight Irwin on 12-22-2021 Hemoglobin (Bld) [Mass/Vol] 11.0 g/dL 11.8-15.4 [facility] Blood leukocytes automated c ount (number/volume)Ordered By: Dwight Irwin on 12-22-2021 WBC (Bld) [#/Vol] 8.3 10*3/uL 4.5-11.0 [facility] COVID-19 Positive/NegativeOr dered By: Dwight Irwin on 12-22-2021 SARS-CoV-2 (COVID-19) N gene GINETTE+probe Ql (Resp) Negative Negative [facility] Comment on above: Testing for SARS-CoV -2 by RT-PCR This test was developed and its performance characteristics determined by [employer] ([employer]) and validated at the [facility]. This test has not been FDA cleared or approved. This test has been authorized by FDA under an Emergency Use Authorization (EUA). This test has been validated in accordance with the FDA's Guidance Document (Policy for Diagnostics Testing in Laboratories Certified to Perform High Complexity Testing under CLIA prior to Emergency Use Authorization for Coronavirus Disease-2019 during the Public Health Emergency) issued on September 30, 2019. This test is only authorized for the duration of time the declaration that circumstances exist justifying the authorization of the emergency use of in vitro diagnostic tests for detection of SARS-CoV-2 virus and/or diagnosis of COVID-19 infection under section 564(b)(1) of the Act, 21 U.S.C. 360bbb-3(b)(1), unless the authorization is terminated or revoked sooner. COVID-19 SOFIAOrdered By: Cortez Irwin on 12-22-2021 SARS-CoV+SARS-CoV-2 (COVID-19) Ag IA.rapid Ql (Resp) Negative Negative [facility] Comment on above: This is a duplicate Anjali SARS Antigen (ROHIT) result to be used for statistical tracking purpose only. Creatine kinase [Enzymatic a ctivity/volume] in Serum or PlasmaOrdered By: Dwight Irwin on 12-22-2021 CK [Catalytic activity/Vol] 359 U/L 22-269 [facility] Creatinine and Glomerular fi ltration rate.predicted panel (S/P/Bld)Ordered By: Dwight Irwin on 12-22-2021 Creatinine [Mass/Vol] 1.02 mg/dL 0.44-1.03 [facility] Eosinophils Auto (Bld) [#/Vo l]Ordered By: Dwight Irwin on 12-22-2021 Eosinophils (Bld) [#/Vol] 0.3 10*3/uL 0.0-0.45 [facility] Eosinophils/100 WBC Auto (Bl d)Ordered By: Dwight Irwin on 12-22-2021 Eosinophils/100 WBC (Bld) 4.1 % . [facility] Erythrocyte distribution wid th Auto (RBC) [Ratio]Ordered By: Dwight Irwin on 12-22-2021 Erythrocyte distribution width (RBC) [Ratio] 16.1 % 11.9-15.3 [facility] Estimated glomerular filtrat ion rate (GFR) non- AmericanOrdered By: Dwight Irwin on 12-22-2021 GFR/1.73 sq M.predicted among non-blacks MDRD (S/P/Bld) [Vol rate/Area] 56 mL/Min [facility] Globulin Calc (S) [Mass/Vol] Ordered By: Dwight Irwin on 12-22-2021 Globulin (S) [Mass/Vol] 2.8 g/dL F [facility] Hematocrit Auto (Bld) [Volum e fraction]Ordered By: Dwight Irwin on 12-22-2021 Hematocrit (Bld) [Volume fraction] 33.4 % 34.0-46.4 [facility] Laboratory - Chemistry and C hemistry - challengeOrdered By: Dwight Irwin on 12-22-2021 Natriuretic peptide B (Bld) [Mass/Vol] 36.0 pg/mL 5-100 [facility] Laboratory - CoagulationOrde red By: Dwight Irwin on 12-22-2021 PT Coag (PPP) [Time] 11.4 s 9.0-12.9 [facility] - Hematology and Cell countsOrdered By: Dwight Irwin on 12-22-2021 Nucleated RBC/100 WBC (Bld) [Ratio] 0.0 % 0-0.5 [facility] Laboratory - Microbiology an d Antimicrobial susceptibilityOrdered By: Dwight Irwin on 12-22-2021 SARS-CoV-2 (COVID-19) RNA GINETTE+probe Ql (Unsp spec) N/A [facility] Lymphocytes Auto (Bld) [#/Vo l]Ordered By: Dwight Iriwn on 12-22-2021 Lymphocytes (Bld) [#/Vol] 2.3 10*3/uL 1.00-4.8 [facility] Lymphocytes/100 WBC Auto (Bl d)Ordered By: Dwight Irwin on 12-22-2021 Lymphocytes/100 WBC (Bld) 27.2 % . [facility] MCH Auto (RBC) [Entitic mass ]Ordered By: Dwight Irwin on 12-22-2021 MCH (RBC) [Entitic mass] 32.0 pg 24.7-34.3 [facility] MCHC Auto (RBC) [Mass/Vol]Or dered By: Dwight Irwin on 12-22-2021 MCHC (RBC) [Mass/Vol] 33.0 g/dL 32.0-35.0 [facility] MCV Auto (RBC) [Entitic vol] Ordered By: Dwight Irwin on 12-22-2021 MCV (RBC) [Entitic vol] 96.8 fL 80-100 F [facility] Monocytes Auto (Bld) [#/Vol] Ordered By: Dwight Irwin on 12-22-2021 Monocytes (Bld) [#/Vol] 0.9 10*3/uL 0.0-0.8 [facility] Monocytes/100 WBC Auto (Bld) Ordered By: Dwight Irwin on 12-22-2021 Monocytes/100 WBC (Bld) 10.5 % . F [facility] Neutrophils Auto (Bld) [#/Vo l]Ordered By: Dwight Irwin on 12-22-2021 Neutrophils (Bld) [#/Vol] 4.8 10*3/uL 1.8-7.7 [facility] Neutrophils/100 WBC Auto (Bl d)Ordered By: Dwight Irwin on 12-22-2021 Neutrophils/100 WBC (Bld) 57.9 % . [facility] No Panel InformationOrdered By: Dwight Irwin on 12-22-2021 Estimated GFR () > 60 mL/Min [facility] Comment on above: GFR estimated refere nce range: According to KDOQI guidelines, <60 ml/min/1.73m2 is sufficient to diagnose a patient with chronic kidney disease. Pharmacy Creatinine Clearance (Chem 74.04 [facility] SARS Antigen (LFIA) [facility] Platelet mean volume Auto (B ld) [Entitic vol]Ordered By: Dwight Irwin on 12-22-2021 Platelet mean volume (Bld) [Entitic vol] 8.7 fL 6.3-10.7 [facility] Platelet poor plasma interna tional normalized ratio (INR) by coagulation assay (relatOrdered By: Dwight Irwin on 12-22-2021 INR Coag (PPP) [Relative time] 1.0 {INR} [facility] Comment on above: INR Therapeutic Rang e A) Pre- and Peroperative OAT started two weeks before surgery. NOT HIP SURGERY: 1.5 - 2.5 HIP SURGERY: 2 - 3 B) Primary and secondary prevention of venous THROMBOSIS: 2 - 3 C) Active venous thrombosis, pulmonary embolism and prevention of recurrent venous thrombosis: 2 - 3 D) Prevention of arterial thromboembolism including patients with mechanical heart valves: 3 - 4.5 Platelets Auto (Bld) [#/Vol] Ordered By: Dwight Irwin on 12-22-2021 Platelets (Bld) [#/Vol] 270 10*3/uL 150-450 [facility] Protein [Mass/volume] in Ser um or PlasmaOrdered By: Dwight Irwin on 12-22-2021 Protein [Mass/Vol] 6.2 g/dL 6.1-7.9 [facility] RBC Auto (Bld) [#/Vol]Ordere d By: Dwight Irwin on 12-22-2021 RBC (Bld) [#/Vol] 3.45 10*6/uL 3.60-5.00 [facility] Serum or plasma alanine chou otransferase measurement without P-5'-P (enzymatic activiOrdered By: Dwight Irwin on 12-22-2021 ALT No additional P-5'-P [Catalytic activity/Vol] 46 U/L 10-60 [facility] Serum or plasma albumin/glob ulin mass ratioOrdered By: Dwight Irwin on 12-22-2021 Albumin/Globulin [Mass ratio] 1.2 {ratio} [facility] Serum or plasma alkaline patricia sphatase measurement (enzymatic activity/volume)Ordered By: Dwight Irwin on 12-22-2021 ALP [Catalytic activity/Vol] 72 U/L 32-92 [facility] Serum or plasma aspartate am inotransferase measurement (enzymatic activity/volume)Ordered By: Dwight Irwin on 12-22-2021 AST [Catalytic activity/Vol] 41 U/L 10-42 [facility] Serum or plasma calcium dee urement (mass/volume)Ordered By: Dwight Irwin on 12-22-2021 Calcium [Mass/Vol] 8.7 mg/dL 8.2-10.2 [facility] Serum or plasma chloride kelsey surement (moles/volume)Ordered By: Dwight Irwin on 12-22-2021 Chloride [Moles/Vol] 106 mmol/L 95-114 [facility] Serum or plasma creatine kin ase MB (CKMB)/total creatine kinase (CK) ratio by calculaOrdered By: Dwight Irwin on 12-22-2021 CK.MB Calc [Catalytic fraction] 1.4 % 0.00-2.50 [facility] Serum or plasma creatine kin ase MB measurement (mass/volume)Ordered By: Dwight Irwin on 12-22-2021 CK.MB [Mass/Vol] 5.1 ng/mL 0.6-6.3 [facility] Serum or plasma glucose dee urement (mass/volume)Ordered By: Dwight Irwin on 12-22-2021 Glucose [Mass/Vol] 133 mg/dL 70-100 [facility] Comment on above: ADA recommended refe rence range Random Glucose Reference Range is dependent on time and content of last meal. Glucose of more than 200 mg/dL in a nonstressed, ambulatory subject supports the diagnosis of Diabetes Mellitus. Serum or plasma potassium me asurement (moles/volume)Ordered By: Dwight Irwin on 12-22-2021 Potassium [Moles/Vol] 4.0 mmol/L 3.5-5.1 [facility] Serum or plasma sodium measu rement (moles/volume)Ordered By: Dwight Irwin on 12-22-2021 Sodium [Moles/Vol] 140 mmol/L 136-146 [facility] Serum or plasma total biliru bin measurement (mass/volume)Ordered By: Dwight Irwin on 12-22-2021 Bilirubin [Mass/Vol] 0.3 mg/dL 0.3-1.2 [facility] Serum or plasma total carbon dioxide measurement (moles/volume)Ordered By: Dwight Irwin on 12-22-2021 CO2 [Moles/Vol] 24.5 mmol/L 22.0-30.0 [facility] Serum or plasma urea nitroge n measurement (mass/volume)Ordered By: Dwight Irwin on 12-22-2021 Urea nitrogen [Mass/Vol] 14 mg/dL - [facility] Troponin I.cardiac [Mass/vol ume] in Serum or Plasma by High sensitivity methodOrdered By: Dwight Irwin on 12-22-2021 Troponin I.cardiac High sensitivity method [Mass/Vol] 4 pg/mL 0-15 [facility] Physician Referralon 022 Physician Referral [id number]:[id number] Normal [facility] Ambulatory Visit Summaryon 0 08-13-2021 Ambulatory Visit Summary LONDON VELASQUEZ :1965 Visit Date:08/13/2021 Ambulatory Visit Instructions Your Care Team Attending Physician - FIONA RUDD, Lenin Downey Primary Care Physician - KASSANDRA KLEIN CNP Referring Physician - KASSANDRA KLEIN CNP This Is Your Medications List Contact prescribing physician if questions or concerns albuterol (albuterol HFA 90 mcg/inh MDI) albuterol-ipratropium (DuoNeb 2.5 mg-0.5 mg/3 mL Soln-Inh) amitriptyline (amitriptyline 50 mg Tab) amlodipine (amLODIPine 10 mg Tab) budesonide-formoterol (Symbicort 160/4.5 inhalation aerosol with adapter) cetirizine (cetirizine 10 mg Tab) cyclobenzaprine (cyclobenzaprine 10 mg Tab) dexamethasone (dexamethasone 4 mg Tab) ergocalciferol (ergocalciferol 50,000 intl units Cap) ferrous sulfate (ferrous sulfate 325 mg Tab) fluticasone nasal (Flonase 0.05 mg/inh nasal spray) furosemide (furosemide 40 mg Tab) gabapentin (gabapentin 400 mg Cap) gemfibrozil (gemfibrozil 600 mg Tab) glipiZIDE (glipiZIDE 5 mg Tab) hydrocortisone-pramoxine topical (Analpram-HC 1%-1% rectal cream) ibuprofen (ibuprofen 800 mg Tab) insulin glargine (Lantus Solostar Pen) lorazepam (Ativan 0.5 mg Tab) losartan (losartan 50 mg Tab) lurasidone (Latuda 40 mg oral tablet) pantoprazole (Pantoprazole [address] Tab) sertraline (Zoloft 50 mg Tab) Procedures Performed PERIRECTAL ABSCESS I & D (08/21/2018), Lateral internal sphincterotomy (07/09/2016), Exam under anesthesia, Lateral internal sphincterotomy. (04/26/2016), Biopsy of kidney using fluoroscopic guidance, Biopsy of lung, Cholecystectomy, Colonoscopy, Dilation of esophagus, EGD - Esophagogastroduodenoscopy , Fine needle biopsy of kidney, History of ankle surgery, tonsillectomy and adenoids, Tubal ligation. Discharge Vitals Temperature (Temporal Artery) 36.1 ?C Heart Rate (Peripheral) 98 Respiratory Rate 16 Blood Pressure 153/91 Height 170 cm Height 170.0 cm Weight 91.6 kg Weight 91.6 kg BMI 31.7 Medications What How Much When Instructions Unchanged albuterol (albuterol HFA 90 mcg/ inh MDI) 2 Puffs Inhalation Every 4 hours as needed for as needed for wheezing Contact prescribing physician if questions or concerns Unchanged albuterol-ipratropium (DuoNeb 2.5 mg-0.5 mg/ 3 mL Soln-Inh) 3 Milliliter Nebulized inhalation (aerosol) Every 4 hours as needed for as needed for shortness of breath or wheezing Contact prescribing physician if questions or concerns Unchanged amitriptyline (amitriptyline 50 mg Tab) 1 Tablets By Mouth Once a day (at bedtime) Contact prescribing physician if questions or concerns Unchanged amlodipine (amLODIPine 10 mg Tab) 1 Tablets By Mouth Every day Contact prescribing physician if questions or concerns Unchanged budesonide-formoterol (Symbicort 160/ 4.5 inhalation aerosol with adapter) 2 Puffs Inhalation 2 times a day Contact prescribing physician if questions or concerns Unchanged cetirizine (cetirizine 10 mg Tab) 1 Tablets By Mouth Every day Contact prescribing physician if questions or concerns Unchanged cyclobenzaprine (cyclobenzaprine 10 mg Tab) 1 Tablets By Mouth 3 times a day as needed for for spasm Contact prescribing physician if questions or concerns Unchanged dexamethasone (dexamethasone 4 mg Tab) 1 Tablets By Mouth 2 times a day Contact prescribing physician if questions or concerns Unchanged ergocalciferol (ergocalciferol 50,000 intl units Cap) 1 Capsules By Mouth Every week Contact prescribing physician if questions or concerns Unchanged ferrous sulfate (ferrous sulfate 325 mg Tab) 1 Tablets By Mouth Every day Contact prescribing physician if questions or concerns Unchanged fluticasone nasal (Flonase 0.05 mg/ inh nasal spray) 1 Sprays Nasal Inhalation 2 times a day Contact prescribing physician if questions or concerns Unchanged furosemide (furosemide 40 mg Tab) 1 Tablets By Mouth Every day Contact prescribing physician if questions or concerns Unchanged gabapentin (gabapentin 400 mg Cap) 1 Capsules By Mouth 3 times a day Contact prescribing physician if questions or concerns Unchanged gemfibrozil (gemfibrozil 600 mg Tab) 1 Tablets By Mouth 2 times a day Contact prescribing physician if questions or concerns Unchanged glipiZIDE (glipiZIDE 5 mg Tab) 1 Tablets By Mouth Every day Contact prescribing physician if questions or concerns Unchanged hydrocortisone-pramoxine topical (Analpram-HC 1%-1% rectal cream) 1 Application By rectum 3 times a day Contact prescribing physician if questions or concerns Unchanged ibuprofen (ibuprofen 800 mg Tab) 1 Tablets By Mouth 3 times a day as needed for as needed for pain Contact prescribing physician if questions or concerns Unchanged insulin glargine (Lantus Solostar Pen) 25 Units Subcutaneous Once a day (at bedtime) Contact prescribing physician if questions or concerns Unchanged lorazepam (Ativan 0.5 mg Tab) 1 Tablets By Mouth 2 times a day Contact prescribing physician if questions or concerns (more content not included)... Normal [facility] Historical Records Officeon 08-10-2021 Historical Records Office [id number]:[id number] Normal [facility] Physician Referralon 022 Physician Referral [id number]:[id number] Normal [facility] POINT OF CARE GLUCOSEon 02-28 Glucose [Mass/Vol] 121 mg/dL Critically high 74-106 [facility] Comment on above: Performed By: #### P OCGLUC #### [facility] [address] [place], [place] [id number] Andreea Gonsalez CBC AUTO DIFFon 02-28-2021 BASO # 0.1 103/ul Normal 0.0-0.1 [facility] Comment on above: Performed By: #### C BC #### [facility] [address] [place], [place] [id number] Andreea Gonsalez Basophils/100 WBC (Bld) 0.6 % Normal 0.2-2.0 [facility] Comment on above: Performed By: #### C BC #### [facility] [address] [place] [address] Andreea Gonsalez EO # 0.2 103/ul Normal 0.0-0.7 [facility] Comment on above: Performed By: #### C BC #### [facility] [address] [place], [place] [id number] Andreea Gonsalez Eosinophils/100 WBC (Bld) 2.2 % Normal 0.9-7.0 [facility] Comment on above: Performed By: #### C BC #### [facility] [address] [place], [place] [id number] Andreea Sunshine Erythrocyte distribution width (RBC) [Ratio] 16.1 % Critically high 11.0-15.0 [facility] Comment on above: Performed By: #### C BC #### [facility] [address] [place] [address] Andreea Gonsalez Hematocrit (Bld) [Volume fraction] 42.0 % Normal 36.0-48.0 [facility] Comment on above: Performed By: #### C BC #### [facility] [address] [place] [address] Andreea Gonsalez Hemoglobin (Bld) [Mass/Vol] 13.4 g/dL Normal 12.0-16.0 [facility] Comment on above: Performed By: #### C BC #### [facility] [address] [place] [address] Andreea Gonsalez IG # 0.02 10e3/ul Normal 0.00-0.03 [facility] Comment on above: Performed By: #### C BC #### [facility] [address] [place] [address] Andreea Gonsalez IG % 0.2 % Normal 0.0-0.5 [facility] Comment on above: Performed By: #### C BC #### [facility] [address] [place] [address] Andreea Gonsalez LYMPH # 2.1 103/ul Normal 1.2-3.8 [facility] Comment on above: Performed By: #### C BC #### [facility] [address] [place] [address] Andreea Gonsalez Lymphocytes/100 WBC (Bld) 25.6 % Normal 20.5-60.0 [facility] Comment on above: Performed By: #### C BC #### [facility] [address] [place] [address] Andreea Gonsalez MANUAL DIFF REQ NO Normal [facility] Comment on above: Performed By: #### C BC #### [facility] [address] [place] [address] Andreea Gonsalez MCH (RBC) [Entitic mass] 30.5 pg Normal 26.7-34.0 [facility] Comment on above: Performed By: #### C BC #### [facility] [address] [place], [place] [address] Andreea Gonsalez MCHC (RBC) [Mass/Vol] 31.9 g/dL Normal 29.9-35.2 [facility] Comment on above: Performed By: #### C BC #### [facility] [address] [place] [id number] Andreea Gonsalez MCV (RBC) [Entitic vol] 95.7 fL Normal 81.0-99.0 [facility] Comment on above: Performed By: #### C BC #### [facility] [address] [place] [id number] Andreearea Gonsalez MONO # 0.7 103/ul Normal 0.3-0.8 [facility] Comment on above: Performed By: #### C BC #### [facility] [address] [place], [place] [id number] Andreea Gonsalez Monocytes/100 WBC (Bld) 8.0 % Normal 1.7-12.0 [facility] Comment on above: Performed By: #### C BC #### [facility] [address] [place] [id number] Andreearea Diazen NEUT # 5.2 103/ul Normal 1.4-6.5 [facility] Comment on above: Performed By: #### C BC #### [facility] [address] [place], [place] [id number] Andreea Gonsalez Neutrophils/100 WBC (Bld) 63.4 % Normal 43.0-75.0 [facility] Comment on above: Performed By: #### C BC #### [facility] [address] [place] [address] Andreearea Gonaslez Platelet mean volume (Bld) [Entitic vol] 10.8 fL Normal 9.5-13.5 [facility] Comment on above: Performed By: #### C BC #### [facility] [address] [place] [id number] Andreea Sunshine PLT 267 103/ul Normal 150-450 [facility] Comment on above: Performed By: #### C BC #### [facility] [address] [place] [address] Andreea Sunshine RBC 4.39 106/ul Normal 4.20-5.40 [facility] Comment on above: Performed By: #### C BC #### [facility] [address] [place] [id number] Andreea Sunshine WBC 8.1 103/ul Normal 4.0-11.0 [facility] Comment on above: Performed By: #### C BC #### [facility] [address] [place], [place] [id number] Andreea Sunshine PROF CHEM 8 (BAS METB)on Anion gap [Moles/Vol] 16.1 mmol/L Normal Th [facility] Comment on above: Performed By: #### B MP #### [facility] [address] [place] [address] Andreea Sunshine Chloride [Moles/Vol] 107 mmol/L Normal 98-107 [facility] Comment on above: Performed By: #### B MP #### [facility] [address] [place] [address] Andreea Sunshine CO2 [Moles/Vol] 23.2 mmol/L Normal 22.0-30.0 [facility] Comment on above: Performed By: #### B MP #### [facility] [address] [place], [place] [id number] Andreea Sunshine Glucose [Mass/Vol] 109 mg/dL Critically high 74-106 [facility] Comment on above: Performed By: #### B MP #### [facility] [address] [place] [address] Andreea Sunshine Potassium [Moles/Vol] 4.3 mmol/L Normal 3.4-5.0 [facility] Comment on above: Performed By: #### B MP #### [facility] [address] [place] [address] Andreea Sunshine Sodium [Moles/Vol] 142 mmol/L Normal 137-145 [facility] Comment on above: Performed By: #### B MP #### [facility] [address] [place] [address] Andreea Gonsalez Urea nitrogen [Mass/Vol] 12.0 mg/dL Normal 7.0-17.0 [facility] Comment on above: Performed By: #### B MP #### [facility] [address] [place], [place] [address] Andreea Gonsalez Albumin [Mass/volume] in Ser um or Plasmaon 08-21-2020 Albumin [Mass/Vol] 4.0 g/dL 3.2-5.5 [facility] Automated basophil %on 08-21 Basophils/100 WBC (Bld) 0.3 % F [facility] Automated basophil counton 0 08-21-2020 Basophils (Bld) [#/Vol] 0.0 10*3/uL 0.0-0.2 [facility] Automated blood lymphocyte c ount (number/volume)on 08-21-2020 Lymphocytes (Bld) [#/Vol] 1.1 10*3/uL 1.00-4.8 [facility] Automated blood lymphocyte c ount as percentage of total leukocyteson 08-21-2020 Lymphocytes/100 WBC (Bld) 6.5 % [facility] Automated blood monocyte cou nton 08-21-2020 Monocytes (Bld) [#/Vol] 0.7 10*3/uL 0.0-0.8 [facility] Automated blood platelet cou nt (count/volume)on 08-21-2020 Platelets (Bld) [#/Vol] 328 10*3/uL 150-450 [facility] Automated blood platelet kelsey n volume measurementon 08-21-2020 Platelet mean volume (Bld) [Entitic vol] 9.4 fL 6.3-10.7 [facility] Automated eosinophil %on Eosinophils/100 WBC (Bld) 0.0 % [facility] Automated eosinophil counton 08-21-2020 Eosinophils (Bld) [#/Vol] 0.0 10*3/uL 0.0-0.45 [facility] Automated erythrocyte distri bution width ratioon 08-21-2020 Erythrocyte distribution width (RBC) [Ratio] 15.3 % 11.9-15.3 [facility] Automated erythrocyte mean c orpuscular hemoglobin (mass per erythrocyte)on 08-21-2020 MCH (RBC) [Entitic mass] 30.9 pg 24.7-34.3 [facility] Automated erythrocyte mean c orpuscular hemoglobin concentration measurement (mass/volon 08-21-2020 MCHC (RBC) [Mass/Vol] 33.5 g/dL 32.0-35.0 [facility] Automated erythrocyte mean c orpuscular volumeon 08-21-2020 MCV (RBC) [Entitic vol] 92.1 fL 80-100 [facility] Automated erythrocytes count in urine sediment (number/area)on 08-21-2020 RBC Auto (Urine sed) [#/Area] 0-1 [HPF] [facility] Automated leukocytes count i n urine sediment (number/area)on 08-21-2020 WBC Auto (Urine sed) [#/Area] 5-9 [HPF] [facility] Automated monocyte %on 08-21 Monocytes/100 WBC (Bld) 3.9 % [facility] Automated neutrophil %on Neutrophils/100 WBC (Bld) 89.3 % [facility] Automated urine color determ inationon 08-21-2020 Color (U) Yellow Yellow [facility] Blood erythrocytes automated count (number/volume)on 08-21-2020 RBC (Bld) [#/Vol] 4.48 10*6/uL 3.60-5.00 [facility] Blood hemoglobin measurement (mass/volume)on 08-21-2020 Hemoglobin (Bld) [Mass/Vol] 13.8 g/dL 11.8-15.4 [facility] Blood leukocytes automated c ount (number/volume)on 08-21-2020 WBC (Bld) [#/Vol] 16.5 10*3/uL 4.5-11.0 [facility] Blood neutrophil count by au tomated method (number/volume)on 08-21-2020 Neutrophils (Bld) [#/Vol] 14.8 10*3/uL 1.8-7.7 [facility] Capillary blood glucose dee urement by glucometer (mass/volume)on 08-21-2020 Glucose [Mass/Vol] 266 mg/dL [facility] Comment on above: Random Glucose Refer ence Range is dependent on time and content of last meal. Glucose of more than 200 mg/dL in a nonstressed, ambulatory subject supports the diagnosis of Diabetes Mellitus. Estimated glomerular filtrat ion rate (GFR) non- Americanon 08-21-2020 GFR/1.73 sq M predicted among non-blacks MDRD (S/P/Bld) [Vol rate/Area] mL/min/{1.73_m2} [facility] Hematocrit [Volume Fraction] of Blood by Automated counton 08-21-2020 Hematocrit (Bld) [Volume fraction] 41.3 % 34.0-46.4 [facility] Metabolic Panelon 08-21-2020 Glucose [Mass/Vol] Glu2: cleaned meter [facility] Otheron 08-21-2020 GFR/1.73 sq M.predicted MDRD (S/P/Bld) [Vol rate/Area] mL/min/{1.73_m2} [facility] Comment on above: GFR estimated refere nce range: According to KDOQI guidelines, <60 ml/min/1.73m2 is sufficient to diagnose a patient with chronic kidney disease. Pharmacy Creatinine Clearance (Chem 87.90 [facility] Nucleated RBC/100 WBC (Bld) [Ratio] 0.0 % 0-0.5 [facility] Protein [Mass/volume] in Ser um or Plasmaon 08-21-2020 Protein [Mass/Vol] 7.2 g/dL 6.1-7.9 [facility] Serum globulin measurement b y calculation (mass/volume)on 08-21-2020 Globulin (S) [Mass/Vol] 3.2 g/dL F [facility] Serum or plasma alanine chou otransferase measurement without P-5'-P (enzymatic activion 08-21-2020 ALT No additional P-5'-P [Catalytic activity/Vol] 31 U/L 10-60 [facility] Serum or plasma albumin/glob ulin mass ratioon 08-21-2020 Albumin/Globulin [Mass ratio] 1.3 {ratio} [facility] Serum or plasma alkaline patricia sphatase measurement (enzymatic activity/volume)on 08-21-2020 ALP [Catalytic activity/Vol] 76 U/L 32-92 [facility] Serum or plasma aspartate am inotransferase measurement (enzymatic activity/volume)on 08-21-2020 AST [Catalytic activity/Vol] 21 U/L 10-42 [facility] Serum or plasma calcium dee urement (mass/volume)on 08-21-2020 Calcium [Mass/Vol] 9.8 mg/dL 8.2-10.2 [facility] Serum or plasma chloride kelsey surement (moles/volume)on 08-21-2020 Chloride [Moles/Vol] 99 mmol/L 95-114 [facility] Serum or plasma creatinine m easurement with calculation of estimated glomerular filtron 08-21-2020 Creatinine [Mass/Vol] 0.90 mg/dL 0.44-1.03 [facility] Serum or plasma glucose dee urement (mass/volume)on 08-21-2020 Glucose [Mass/Vol] 350 mg/dL 70-100 [facility] Comment on above: ADA recommended refe rence rangeRandom Glucose Reference Range is dependent on time and content of last meal. Glucose of more than 200 mg/dL in a nonstressed, ambulatory subject supports the diagnosis of Diabetes Mellitus. Serum or plasma potassium me asurement (moles/volume)on 08-21-2020 Potassium [Moles/Vol] 3.9 mmol/L 3.5-5.1 [facility] Serum or plasma sodium measu rement (moles/volume)on 08-21-2020 Sodium [Moles/Vol] 135 mmol/L 136-146 [facility] Serum or plasma total biliru bin measurement (mass/volume)on 08-21-2020 Bilirubin [Mass/Vol] 0.6 mg/dL 0.3-1.2 [facility] Serum or plasma total carbon dioxide measurement (moles/volume)on 08-21-2020 CO2 [Moles/Vol] 20.3 mmol/L 22.0-30.0 [facility] Serum or plasma urea nitroge n measurement (mass/volume)on 08-21-2020 Urea nitrogen [Mass/Vol] 14 mg/dL 9-23 [facility] Specific gravity of Urine by Automated test stripon 08-21-2020 Specific gravity (U) [Rel density] 1.036 1.001-1.03 0 [facility] Squamous epithelial cells de tection in urine sediment by light microscopyon 08-21-2020 Epithelial cells.squamous LM Ql (Urine sed) 1-2 [HPF] [facility] Urinalysison 08-21-2020 Hyaline casts LM Ql (Urine sed) 0-8 [LPF] [facility] Urine bacteria detection by automated methodon 08-21-2020 Bacteria Auto Ql (U) None seen None Seen [facility] Urine clarity by refractomet ry automatedon 08-21-2020 Clarity Refractometry automated (U) Clear Clear [facility] Urine glucose measurement by automated test strip (mass/volume)on 08-21-2020 Glucose Auto test strip (U) [Mass/Vol] >=1000 mg/dL Normal [facility] Urine hemoglobin detection b y automated test stripon 08-21-2020 Hemoglobin Auto test strip Ql (U) Negative Negative [facility] Urine ketones measurement by automated test strip (mass/volume)on 08-21-2020 Ketones (U) [Mass/Vol] Trace Negative [facility] Urine leukocyte esterase det ection by automated test stripon 08-21-2020 Leukocyte esterase Auto test strip Ql (U) 1+ Negative [facility] Urine nitrite detection by t est stripon 08-21-2020 Nitrite Ql (U) Negative Negative [facility] Urine pH measurement by auto mated test stripon 08-21-2020 pH (U) 6.0 [pH] 5.0-9.0 [facility] Urine protein measurement by automated test strip (mass/volume)on 08-21-2020 Protein (U) [Mass/Vol] Negative Negative [facility] Urine total bilirubin detect ion by test stripon 08-21-2020 Bilirubin Ql (U) Negative Negative [facility] Urine urobilinogen measureme nt by automated test strip (mass/volume)on 08-21-2020 Urobilinogen (U) [Mass/Vol] Normal mg/dL Normal [facility] Albumin [Mass/volume] in Ser um or Plasmaon 08-20-2020 Albumin [Mass/Vol] 3.5 g/dL 3.2-5.5 [facility] Automated basophil %on 08-20 Basophils/100 WBC (Bld) 0.4 % F [facility] Automated basophil counton 0 08-20-2020 Basophils (Bld) [#/Vol] 0.1 10*3/uL 0.0-0.2 [facility] Automated blood lymphocyte c ount (number/volume)on 08-20-2020 Lymphocytes (Bld) [#/Vol] 1.4 10*3/uL 1.00-4.8 [facility] Automated blood lymphocyte c ount as percentage of total leukocyteson 08-20-2020 Lymphocytes/100 WBC (Bld) 8.2 % [facility] Automated blood monocyte cou nton 08-20-2020 Monocytes (Bld) [#/Vol] 0.9 10*3/uL 0.0-0.8 [facility] Automated blood platelet cou nt (count/volume)on 08-20-2020 Platelets (Bld) [#/Vol] 298 10*3/uL 150-450 [facility] Automated blood platelet kelsey n volume measurementon 08-20-2020 Platelet mean volume (Bld) [Entitic vol] 8.8 fL 6.3-10.7 [facility] Automated eosinophil %on Eosinophils/100 WBC (Bld) 0.0 % [facility] Automated eosinophil counton 08-20-2020 Eosinophils (Bld) [#/Vol] 0.0 10*3/uL 0.0-0.45 [facility] Automated erythrocyte distri bution width ratioon 08-20-2020 Erythrocyte distribution width (RBC) [Ratio] 15.4 % 11.9-15.3 [facility] Automated erythrocyte mean c orpuscular hemoglobin (mass per erythrocyte)on 08-20-2020 MCH (RBC) [Entitic mass] 31.3 pg 24.7-34.3 [facility] Automated erythrocyte mean c orpuscular hemoglobin concentration measurement (mass/volon 08-20-2020 MCHC (RBC) [Mass/Vol] 34.1 g/dL 32.0-35.0 [facility] Automated erythrocyte mean c orpuscular volumeon 08-20-2020 MCV (RBC) [Entitic vol] 91.8 fL 80-100 [facility] Automated monocyte %on 08-20 Monocytes/100 WBC (Bld) 5.1 % [facility] Automated neutrophil %on Neutrophils/100 WBC (Bld) 86.3 % [facility] Automated urine color determ inationon 08-20-2020 Color (U) Yellow Yellow [facility] Blood erythrocytes automated count (number/volume)on 08-20-2020 RBC (Bld) [#/Vol] 4.18 10*6/uL 3.60-5.00 [facility] Blood hemoglobin measurement (mass/volume)on 08-20-2020 Hemoglobin (Bld) [Mass/Vol] 13.1 g/dL 11.8-15.4 [facility] Blood leukocytes automated c ount (number/volume)on 08-20-2020 WBC (Bld) [#/Vol] 16.8 10*3/uL 4.5-11.0 [facility] Blood neutrophil count by au tomated method (number/volume)on 08-20-2020 Neutrophils (Bld) [#/Vol] 14.5 10*3/uL 1.8-7.7 [facility] Capillary blood glucose dee urement by glucometer (mass/volume)on 08-20-2020 Glucose [Mass/Vol] 213 mg/dL [facility] Comment on above: Random Glucose Refer ence Range is dependent on time and content of last meal. Glucose of more than 200 mg/dL in a nonstressed, ambulatory subject supports the diagnosis of Diabetes Mellitus. Creatine kinase [Enzymatic a ctivity/volume] in Serum or Plasmaon 08-20-2020 CK [Catalytic activity/Vol] 64 U/L 22- [facility] Estimated glomerular filtrat ion rate (GFR) non- Americanon 08-20-2020 GFR/1.73 sq M predicted among non-blacks MDRD (S/P/Bld) [Vol rate/Area] mL/min/{1.73_m2} [facility] Hematocrit [Volume Fraction] of Blood by Automated counton 08-20-2020 Hematocrit (Bld) [Volume fraction] 38.4 % 34.0-46.4 [facility] Otheron 08-20-2020 GFR/1.73 sq M.predicted MDRD (S/P/Bld) [Vol rate/Area] mL/min/{1.73_m2} [facility] Comment on above: GFR estimated refere nce range: According to KDOQI guidelines, <60 ml/min/1.73m2 is sufficient to diagnose a patient with chronic kidney disease. Lipase [Catalytic activity/Vol] 27.0 U/L 22-51 [facility] Nucleated RBC/100 WBC (Bld) [Ratio] 0.1 % 0-0.5 [facility] Pharmacy Creatinine Clearance (Chem 94.30 [facility] Protein [Mass/volume] in Ser um or Plasmaon 08-20-2020 Protein [Mass/Vol] 7.0 g/dL 6.1-7.9 [facility] Serum globulin measurement b y calculation (mass/volume)on 08-20-2020 Globulin (S) [Mass/Vol] 3.5 g/dL F [facility] Serum or plasma alanine chou otransferase measurement without P-5'-P (enzymatic activion 08-20-2020 ALT No additional P-5'-P [Catalytic activity/Vol] 38 U/L 10-60 [facility] Serum or plasma albumin/glob ulin mass ratioon 08-20-2020 Albumin/Globulin [Mass ratio] 1.0 {ratio} [facility] Serum or plasma alkaline patricia sphatase measurement (enzymatic activity/volume)on 08-20-2020 ALP [Catalytic activity/Vol] 73 U/L 32-92 [facility] Serum or plasma amylase dee urement (enzymatic activity/volume)on 08-20-2020 Amylase [Catalytic activity/Vol] 34 U/L 28-100 [facility] Serum or plasma aspartate am inotransferase measurement (enzymatic activity/volume)on 08-20-2020 AST [Catalytic activity/Vol] 27 U/L 10-42 [facility] Serum or plasma beta choriog onadotropin measurement (units/volume)on 08-20-2020 HCG.beta subunit Qn 1.35 m[IU]/mL [facility] Comment on above: Approximate Approxim ate hCG Gestational Age Range (mIU/ml) (weeks)0.2-1 5-50 1-2 50-500 2-3 100-5,000 3-4 500-10,000 4-5 1,000-50,000 5-6 10,000-100,000 6-8 15,000-200,000 8-12 10,000-100,000 Serum or plasma calcium dee urement (mass/volume)on 08-20-2020 Calcium [Mass/Vol] 9.9 mg/dL 8.2-10.2 [facility] Serum or plasma cardiac trop onin I measurement (mass/volume)on 08-20-2020 Troponin I.cardiac [Mass/Vol] 0.02 ng/mL 0-0.02 [facility] Comment on above: [place] Cut off value > or equal to 0.03 ng/mL in conjunction with clinical conditions of myocardial infarction.([email or web address]) Serum or plasma chloride kelsey surement (moles/volume)on 08-20-2020 Chloride [Moles/Vol] 102 mmol/L 95-114 [facility] Serum or plasma creatine kin ase MB (CKMB)/total creatine kinase (CK) ratio by calculaon 08-20-2020 CK.MB Calc [Catalytic fraction] 4.0 0.00-2.50 [facility] Serum or plasma creatine kin ase MB measurement (mass/volume)on 08-20-2020 CK.MB [Mass/Vol] 2.6 ng/mL 0.6-6.3 [facility] Serum or plasma creatinine m easurement with calculation of estimated glomerular filtron 08-20-2020 Creatinine [Mass/Vol] 0.82 mg/dL 0.44-1.03 [facility] Serum or plasma glucose dee urement (mass/volume)on 08-20-2020 Glucose [Mass/Vol] 269 mg/dL 70-100 [facility] Comment on above: ADA recommended refe rence rangeRandom Glucose Reference Range is dependent on time and content of last meal. Glucose of more than 200 mg/dL in a nonstressed, ambulatory subject supports the diagnosis of Diabetes Mellitus. Serum or plasma potassium me asurement (moles/volume)on 08-20-2020 Potassium [Moles/Vol] 4.0 mmol/L 3.5-5.1 [facility] Serum or plasma sodium measu rement (moles/volume)on 08-20-2020 Sodium [Moles/Vol] 135 mmol/L 136-146 [facility] Serum or plasma total biliru bin measurement (mass/volume)on 08-20-2020 Bilirubin [Mass/Vol] 0.5 mg/dL 0.3-1.2 [facility] Serum or plasma total carbon dioxide measurement (moles/volume)on 08-20-2020 CO2 [Moles/Vol] 20.7 mmol/L 22.0-30.0 [facility] Serum or plasma urea nitroge n measurement (mass/volume)on 08-20-2020 Urea nitrogen [Mass/Vol] 14 mg/dL 03-22 [facility] Specific gravity of Urine by Automated test stripon 08-20-2020 Specific gravity (U) [Rel density] 1.038 1.001-1.03 0 [facility] Urine clarity by refractomet ry automatedon 08-20-2020 Clarity Refractometry automated (U) Clear Clear [facility] Urine glucose measurement by automated test strip (mass/volume)on 08-20-2020 Glucose Auto test strip (U) [Mass/Vol] >=1000 mg/dL Normal [facility] Urine hemoglobin detection b y automated test stripon 08-20-2020 Hemoglobin Auto test strip Ql (U) Negative Negative [facility] Urine ketones measurement by automated test strip (mass/volume)on 08-20-2020 Ketones (U) [Mass/Vol] Trace Negative [facility] Urine leukocyte esterase det ection by automated test stripon 08-20-2020 Leukocyte esterase Auto test strip Ql (U) Negative Negative [facility] Urine nitrite detection by t est stripon 08-20-2020 Nitrite Ql (U) Negative Negative [facility] Urine pH measurement by auto mated test stripon 08-20-2020 pH (U) 6.5 [pH] 5.0-9.0 [facility] Urine protein measurement by automated test strip (mass/volume)on 08-20-2020 Protein (U) [Mass/Vol] Negative Negative [facility] Urine total bilirubin detect ion by test stripon 08-20-2020 Bilirubin Ql (U) Negative Negative [facility] Urine urobilinogen measureme nt by automated test strip (mass/volume)on 08-20-2020 Urobilinogen (U) [Mass/Vol] Normal mg/dL Normal [facility] Automated basophil %on 06-08 Basophils/100 WBC (Bld) 0.6 % F [facility] Automated basophil counton 1 08-09-2019 Basophils (Bld) [#/Vol] 0.0 10*3/uL 0.0-0.2 [facility] Automated blood lymphocyte c ount (number/volume)on 06-08-2020 Lymphocytes (Bld) [#/Vol] 2.2 10*3/uL 1.00-4.8 [facility] Automated blood lymphocyte c ount as percentage of total leukocyteson 06-08-2020 Lymphocytes/100 WBC (Bld) 26.1 % [facility] Automated blood monocyte cou nton 06-08-2020 Monocytes (Bld) [#/Vol] 0.6 10*3/uL 0.0-0.8 [facility] Automated blood platelet cou nt (count/volume)on 06-08-2020 Platelets (Bld) [#/Vol] 295 10*3/uL 150-450 [facility] Automated blood platelet kelsey n volume measurementon 06-08-2020 Platelet mean volume (Bld) [Entitic vol] 10.0 fL 6.3-10.7 [facility] Automated eosinophil %on Eosinophils/100 WBC (Bld) 2.1 % [facility] Automated eosinophil counton 06-08-2020 Eosinophils (Bld) [#/Vol] 0.2 10*3/uL 0.0-0.45 [facility] Automated erythrocyte distri bution width ratioon 06-08-2020 Erythrocyte distribution width (RBC) [Ratio] 16.0 % 11.9-15.3 [facility] Automated erythrocyte mean c orpuscular hemoglobin (mass per erythrocyte)on 06-08-2020 MCH (RBC) [Entitic mass] 29.6 pg 24.7-34.3 [facility] Automated erythrocyte mean c orpuscular hemoglobin concentration measurement (mass/volon 06-08-2020 MCHC (RBC) [Mass/Vol] 32.6 g/dL 32.0-35.0 [facility] Automated erythrocyte mean c orpuscular volumeon 06-08-2020 MCV (RBC) [Entitic vol] 90.7 fL 80-100 [facility] Automated monocyte %on 06-08 Monocytes/100 WBC (Bld) 7.8 % [facility] Automated neutrophil %on Neutrophils/100 WBC (Bld) 63.4 % [facility] Blood erythrocytes automated count (number/volume)on 06-08-2020 RBC (Bld) [#/Vol] 4.19 10*6/uL 3.60-5.00 [facility] Blood hemoglobin measurement (mass/volume)on 06-08-2020 Hemoglobin (Bld) [Mass/Vol] 12.4 g/dL 11.8-15.4 [facility] Blood leukocytes automated c ount (number/volume)on 06-08-2020 WBC (Bld) [#/Vol] 8.3 10*3/uL 3.8-11.6 [facility] Blood neutrophil count by au tomated method (number/volume)on 06-08-2020 Neutrophils (Bld) [#/Vol] 5.2 10*3/uL 1.8-7.7 [facility] Body fluid albumin measureme nt (mass/volume)on 06-08-2020 Albumin (Body fld) [Mass/Vol] 3.3 g/dL 3.2-5.5 [facility] Estimated glomerular filtrat ion rate (GFR) non- Americanon 06-08-2020 GFR/1.73 sq M predicted among non-blacks MDRD (S/P/Bld) [Vol rate/Area] mL/min/{1.73_m2} [facility] Hematocrit [Volume Fraction] of Blood by Automated counton 06-08-2020 Hematocrit (Bld) [Volume fraction] 38.0 % 34.0-46.4 [facility] Otheron 06-08-2020 25-Hydroxy Vitamin D Total 39.0 ng/mL 30-100 [facility] Comment on above: VITAMIN D STATUS 25( [place])VITAMIN D RANGE (ng/mL) Deficient <20 Insufficient 20 to <30Sufficient 30 to 100Reference: Noemí MF,Reese BERNAL, Zaria LI, et al. Evaluation,treatment, and prevention of vitamin D deficiency; an Endocrine Society clinical practice guideline. JCEM. 2010; 96(7):1911-30. Cobalamin (Vitamin B12) [Mass/Vol] 241 pg/mL 180-914 [facility] GFR/1.73 sq M.predicted MDRD (S/P/Bld) [Vol rate/Area] mL/min/{1.73_m2} [facility] Comment on above: GFR estimated refere nce range: According to KDOQI guidelines, <60 ml/min/1.73m2 is sufficient to diagnose a patient with chronic kidney disease. Nucleated RBC/100 WBC (Bld) [Ratio] 0.2 % 0-0.5 [facility] Creatinine Clearance (Chem N/A [facility] Protein [Mass/volume] in Ser um or Plasmaon 06-08-2020 Protein [Mass/Vol] 6.2 g/dL 6.1-7.9 [facility] Serum globulin measurement b y calculation (mass/volume)on 06-08-2020 Globulin (S) [Mass/Vol] 2.9 g/dL F [facility] Serum or plasma alanine chou otransferase measurement without P-5'-P (enzymatic activion 06-08-2020 ALT No additional P-5'-P [Catalytic activity/Vol] 28 U/L 10-60 [facility] Serum or plasma albumin/glob ulin mass ratioon 06-08-2020 Albumin/Globulin [Mass ratio] 1.1 {ratio} [facility] Serum or plasma alkaline patricia sphatase measurement (enzymatic activity/volume)on 06-08-2020 ALP [Catalytic activity/Vol] 78 U/L 32-92 [facility] Serum or plasma aspartate am inotransferase measurement (enzymatic activity/volume)on 06-08-2020 AST [Catalytic activity/Vol] 23 U/L 10- [facility] Serum or plasma calcium dee urement (mass/volume)on 06-08-2020 Calcium [Mass/Vol] 9.2 mg/dL 8.2-10.2 [facility] Serum or plasma chloride kelsey surement (moles/volume)on 06-08-2020 Chloride [Moles/Vol] 110 mmol/L 95-114 [facility] Serum or plasma creatinine m easurement with calculation of estimated glomerular filtron 06-08-2020 Creatinine [Mass/Vol] 0.73 mg/dL 0.44-1.03 [facility] Serum or plasma glucose dee urement (mass/volume)on 06-08-2020 Glucose [Mass/Vol] 119 mg/dL 70-100 [facility] Comment on above: Delta: 221 on -[id number] recommended reference rangeRandom Glucose Reference Range is dependent on time and content of last meal. Glucose of more than 200 mg/dL in a nonstressed, ambulatory subject supports the diagnosis of Diabetes Mellitus. Serum or plasma potassium me asurement (moles/volume)on 06-08-2020 Potassium [Moles/Vol] 4.3 mmol/L 3.5-5.1 [facility] Serum or plasma sodium measu rement (moles/volume)on 06-08-2020 Sodium [Moles/Vol] 141 mmol/L 136-146 [facility] Serum or plasma total biliru bin measurement (mass/volume)on 06-08-2020 Bilirubin [Mass/Vol] 0.4 mg/dL 0.3-1.2 [facility] Serum or plasma total carbon dioxide measurement (moles/volume)on 06-08-2020 CO2 [Moles/Vol] 22.2 mmol/L 22.0-30.0 [facility] Serum or plasma urea nitroge n measurement (mass/volume)on 06-08-2020 Urea nitrogen [Mass/Vol] 8 mg/dL 9- [facility] Activated partial thrombopla stin time (aPTT) in platelet poor plasma by coagulation aon 06-07-2020 aPTT Coag (PPP) [Time] 29.1 s 23.0-35.0 [facility] Automated basophil %on 06-07 Basophils/100 WBC (Bld) 0.6 % F [facility] Automated basophil counton 1 08-08-2019 Basophils (Bld) [#/Vol] 0.1 10*3/uL 0.0-0.2 [facility] Automated blood lymphocyte c ount (number/volume)on 06-07-2020 Lymphocytes (Bld) [#/Vol] 2.8 10*3/uL 1.00-4.8 [facility] Automated blood lymphocyte c ount as percentage of total leukocyteson 06-07-2020 Lymphocytes/100 WBC (Bld) 32.3 % [facility] Automated blood monocyte cou nton 06-07-2020 Monocytes (Bld) [#/Vol] 0.9 10*3/uL 0.0-0.8 [facility] Automated blood platelet cou nt (count/volume)on 06-07-2020 Platelets (Bld) [#/Vol] 268 10*3/uL 150-450 [facility] Automated blood platelet kelsey n volume measurementon 06-07-2020 Platelet mean volume (Bld) [Entitic vol] 9.3 fL 6.3-10.7 [facility] Automated eosinophil %on Eosinophils/100 WBC (Bld) 2.2 % [facility] Automated eosinophil counton 06-07-2020 Eosinophils (Bld) [#/Vol] 0.2 10*3/uL 0.0-0.45 [facility] Automated erythrocyte distri bution width ratioon 06-07-2020 Erythrocyte distribution width (RBC) [Ratio] 15.9 % 11.9-15.3 [facility] Automated erythrocyte mean c orpuscular hemoglobin (mass per erythrocyte)on 06-07-2020 MCH (RBC) [Entitic mass] 30.2 pg 24.7-34.3 [facility] Automated erythrocyte mean c orpuscular hemoglobin concentration measurement (mass/volon 06-07-2020 MCHC (RBC) [Mass/Vol] 33.0 g/dL 32.0-35.0 [facility] Automated erythrocyte mean c orpuscular volumeon 06-07-2020 MCV (RBC) [Entitic vol] 91.5 fL 80-100 [facility] Automated monocyte %on 06-07 Monocytes/100 WBC (Bld) 10.8 % F [facility] Automated neutrophil %on Neutrophils/100 WBC (Bld) 54.1 % [facility] Blood erythrocytes automated count (number/volume)on 06-07-2020 RBC (Bld) [#/Vol] 3.88 10*6/uL 3.60-5.00 [facility] Blood hemoglobin measurement (mass/volume)on 06-07-2020 Hemoglobin (Bld) [Mass/Vol] 11.7 g/dL 11.8-15.4 [facility] Blood leukocytes automated c ount (number/volume)on 06-07-2020 WBC (Bld) [#/Vol] 8.6 10*3/uL 4.5-11.0 [facility] Blood neutrophil count by au tomated method (number/volume)on 06-07-2020 Neutrophils (Bld) [#/Vol] 4.6 10*3/uL 1.8-7.7 [facility] Body fluid albumin measureme nt (mass/volume)on 06-07-2020 Albumin (Body fld) [Mass/Vol] 3.1 g/dL 3.2-5.5 [facility] 06-07-2020 Natriuretic peptide B (Bld) [Mass/Vol] 8.0 pg/mL 5-100 [facility] Creatine kinase [Enzymatic a ctivity/volume] in Serum or Plasmaon 06-07-2020 CK [Catalytic activity/Vol] 110 U/L 22-269 [facility] Estimated glomerular filtrat ion rate (GFR) non- Americanon 06-07-2020 GFR/1.73 sq M predicted among non-blacks MDRD (S/P/Bld) [Vol rate/Area] mL/min/{1.73_m2} [facility] Hematocrit [Volume Fraction] of Blood by Automated counton 06-07-2020 Hematocrit (Bld) [Volume fraction] 35.5 % 34.0-46.4 [facility] Hematologyon 06-07-2020 PT Coag (PPP) [Time] 11.0 s 9.0-12.9 [facility] Otheron 06-07-2020 D-Dimer Quantitative (PE/DVT) < 200 ng/mL 0-243 [facility] Comment on above: The reference range for D-dimer is <243 ng/mL D-dimer units.D-dimer results must be used in conjunction with a clinicalpretest probability (PTP) assessment model for deep veinthrombosis (DVT) and pulmonary embolism (PE). Results <230ng/mL d-dimer units can be used as a negative predictor inpatients with low or moderate probability for DVT/PE.Results above the exclusion threshold of 230 ng/ml D-dimerunits for DVT/PE may indicate the need for furtherdiagnostic testing.D-Dimer can be increased in hospitalized patients due toco-morbid conditions. GFR/1.73 sq M.predicted MDRD (S/P/Bld) [Vol rate/Area] mL/min/{1.73_m2} [facility] Comment on above: GFR estimated refere nce range: According to KDOQI guidelines, <60 ml/min/1.73m2 is sufficient to diagnose a patient with chronic kidney disease. Nucleated RBC/100 WBC (Bld) [Ratio] 0.1 % 0-0.5 [facility] Creatinine Clearance (Chem 85.38 [facility] Platelet poor plasma interna tional normalized ratio (INR) by coagulation assay (relaton 06-07-2020 INR Coag (PPP) [Relative time] 1.0 {INR} [facility] Comment on above: INR Therapeutic Rang e A) Pre- and Peroperative OAT started two weeks before surgery. NOT HIP SURGERY: 1.5 - 2.5 HIP SURGERY: 2 - 3B) Primary and secondary prevention of venous THROMBOSIS: 2 - 3C) Active venous thrombosis, pulmonary embolismand prevention of recurrent venous thrombosis: 2 - 3D) Prevention of arterial thromboembolismincluding patients with mechanical heart valves: 3 - 4.5 Protein [Mass/volume] in Ser um or Plasmaon 06-07-2020 Protein [Mass/Vol] 6.1 g/dL 6.1-7.9 [facility] Serum globulin measurement b y calculation (mass/volume)on 06-07-2020 Globulin (S) [Mass/Vol] 3.0 g/dL F [facility] Serum or plasma alanine chou otransferase measurement without P-5'-P (enzymatic activion 06-07-2020 ALT No additional P-5'-P [Catalytic activity/Vol] 27 U/L 1060 [facility] Serum or plasma albumin/glob ulin mass ratioon 06-07-2020 Albumin/Globulin [Mass ratio] 1.0 {ratio} [facility] Serum or plasma alkaline patricia sphatase measurement (enzymatic activity/volume)on 06-07-2020 ALP [Catalytic activity/Vol] 75 U/L 3292 [facility] Serum or plasma aspartate am inotransferase measurement (enzymatic activity/volume)on 06-07-2020 AST [Catalytic activity/Vol] 24 U/L 1042 [facility] Serum or plasma calcium dee urement (mass/volume)on 06-07-2020 Calcium [Mass/Vol] 8.7 mg/dL 8.2-10.2 [facility] Serum or plasma cardiac trop onin I measurement (mass/volume)on 06-07-2020 Troponin I.cardiac [Mass/Vol] ng/mL 0-0.02 [facility] Comment on above: [place] Cut off value > or equal to 0.03 ng/mL in conjunction with clinical conditions of myocardial infarction.([email or web address]/[email or web address]) Serum or plasma chloride kelsey surement (moles/volume)on 06-07-2020 Chloride [Moles/Vol] 111 mmol/L 95-114 [facility] Serum or plasma creatine kin ase MB (CKMB)/total creatine kinase (CK) ratio by calculaon 06-07-2020 CK.MB Calc [Catalytic fraction] 1.9 0.00-2.50 [facility] Serum or plasma creatine kin ase MB measurement (mass/volume)on 06-07-2020 CK.MB [Mass/Vol] 2.1 ng/mL 0.6-6.3 [facility] Serum or plasma creatinine m easurement with calculation of estimated glomerular filtron 06-07-2020 Creatinine [Mass/Vol] 0.92 mg/dL 0.44-1.03 [facility] Serum or plasma glucose dee urement (mass/volume)on 06-07-2020 Glucose [Mass/Vol] 221 mg/dL 70-100 [facility] Comment on above: ADA recommended refe rence rangeRandom Glucose Reference Range is dependent on time and content of last meal. Glucose of more than 200 mg/dL in a nonstressed, ambulatory subject supports the diagnosis of Diabetes Mellitus. Serum or plasma potassium me asurement (moles/volume)on 06-07-2020 Potassium [Moles/Vol] 3.6 mmol/L 3.5-5.1 [facility] Serum or plasma sodium measu rement (moles/volume)on 06-07-2020 Sodium [Moles/Vol] 141 mmol/L 136-146 [facility] Serum or plasma total biliru bin measurement (mass/volume)on 06-07-2020 Bilirubin [Mass/Vol] mg/dL 0.3-1.2 [facility] Serum or plasma total carbon dioxide measurement (moles/volume)on 06-07-2020 CO2 [Moles/Vol] 19.9 mmol/L 22.0-30.0 [facility] Serum or plasma urea nitroge n measurement (mass/volume)on 06-07-2020 Urea nitrogen [Mass/Vol] 8 mg/dL 03-22 [facility] Respiratory specimen 2019 no kayleigh coronavirus RNA detection by probe and target amplifion 05-23-2020 Respiratory specimen 2019 novel coronavirus RNA detection by probe and target amplifi Not detected Not Detected [facility] Comment on above: This nucleic acid am plification test was developed and itsperformance characteristics determined by [facility]. Nucleic acid amplification tests include PCRand TMA. This test has not been FDA cleared or approved.This test has been authorized by FDA under an Emergency UseAuthorization (EUA). This test is only authorized forthe duration of time the declaration that circumstancesexist justifying the authorization of the emergency use ofin vitro diagnostic tests for detection of SARS-CoV-2 virusand/or diagnosis of COVID-19 infection under (b)(1) of the Act, 21 U.S.C. 360bbb-3(b) (1), unless theauthorization is terminated or revoked sooner.When diagnostic testing is negative, the possibility of afalse negative result should be considered in the contextof a patient's recent exposures and the presence ofclinical signs and symptoms consistent with COVID-19. Anindividual without symptoms of COVID-19 and who is notshedding SARS-CoV-2 virus would expect to have a negative(not detected) result in this assay.Performed at: [facility] [facility], [place] [id number] Director: Fany Mayo MD, Phone: [phone] ANAon 04-24-2017 ALEXY PATTERN NUCLEOLAR Normal [facility] Comment on above: Performed By: #### 1 0196 ####[address] ALEXY SCREEN 1:80 Abnormal <1:40,1:40 [facility] Comment on above: Performed By: #### 1 0196 ####[address] C REACTIVE PROTEINon 017 C reactive protein (CRP) 8.3 mg/L High 0.0-7.0 [facility] Comment on above: Performed By: #### 1 0204, 48081 ####[address] CBC W/DIFFon 04-24-2017 Basophils Auto #/vol (Bld) 0.5 % Normal 0.0-2.0 [facility] Comment on above: Performed By: #### 5 0103, 70341 ####[address] Eosinophils/100 leukocytes 2.1 % Normal 0.0-5.0 [facility] Comment on above: Performed By: #### 5 0103, 84183 ####[address] Erythrocyte distribution width Auto Ratio (RBC) 16.2 % Normal 11.5-16.9 [facility] Comment on above: Performed By: #### 5 102, 17246 ####[facility] [facility].[address] Erythrocytes (RBC) 4.11 mill/mm3 Normal 3.50-5.50 [facility] Comment on above: Performed By: #### 5 102, 77315 ####[facility] [facility].[address] Hematocrit (HCT) 38.6 % Normal 36.0-48.0 [facility] Comment on above: Performed By: #### 5 102, 75559 ####[facility] [facility].[address] Hemoglobin mass conc (Bld) 12.4 g/dL Normal 12.0-15.0 [facility] Comment on above: Performed By: #### 5 102, 42253 ####[place] [address] [facility].[address] Lymphocytes/100 leukocytes 30.0 % Normal 20.0-40.0 [facility] Comment on above: Performed By: #### 5 102, 26056 ####[facility] [facility].[address] MCH 30.2 pg Normal 24.0-32.0 [facility] Comment on above: Performed By: #### 5 102, 10002 ####[facility] [facility].[address] MCHC mass conc (RBC) 32.1 g/dL Normal 32.0-36.0 [facility] Comment on above: Performed By: #### 5 102, 57180 ####[facility] MCV 93.9 fL Normal 80.0-100.0 [facility] Comment on above: Performed By: #### 5 0103, 61712 ####[facility] [place] [address], [facility] METHOD Normal RBC Morphology Normal [facility] Comment on above: Performed By: #### 5 0103, 49389 ####[facility] [place] [address], [facility] MONOS 6.2 % Normal 2-8 [facility] Comment on above: Performed By: #### 5 0103, 40939 ####[facility] Neutrophils/100 leukocytes 61.2 % Normal 50-70 [facility] Comment on above: Performed By: #### 5 0103, 40895 ####[facility] PLAT CNT 263 Thou/mm3 Normal 100-400 [facility] Comment on above: Performed By: #### 5 010, 00190 ####[facility] [facility].[address] WBC (Leukocytes) 7.7 Thou/mm3 Normal 4.0-10.0 [facility] Comment on above: Performed By: #### 5 0103, 24374 ####[facility] COMP METABOLIC PANELon 04-24 Alanine aminotransferase (ALT) 26 U/L Normal 7-52 [facility] Comment on above: Performed By: #### 3 0728, 15161, 84833, 80905 ####[facility] Albumin 4.4 g/dL Normal 3.5-5.7 [facility] Comment on above: Performed By: #### 3 0728, 10188, 54269, 82858 ####[facility] [place] [address], [facility] ALKALINE PHOSPH 69 IU/L Normal 34-104 [facility] Comment on above: Performed By: #### 3 0728, 21993, 09525, 84274 ####[facility] Aspartate aminotransferase (AST) 29 U/L Normal 13-39 [facility] Comment on above: Performed By: #### 3 0728, 27839, 74028, 60626 ####[facility] Bilirubin (total) 0.2 mg/dL Low 0.3-1.0 [facility] Comment on above: Performed By: #### 3 0728, 69096, 98554, 44491 ####[place] [address] [facility] [place] [address], [facility] Calcium 9.3 mg/dL Normal 8.6-10.3 [facility] Comment on above: Performed By: #### 3 0728, 17796, 71058, 37910 ####[place] [address] [facility].[address] Chloride 102 mmol/L Normal 98-107 [facility] Comment on above: Performed By: #### 3 0728, 05248, 84287, 06278 ####[facility] [facility].[address] CO2 17 mmol/L Low 21-31 [facility] Comment on above: Performed By: #### 3 0728, 50863, 99587, 81016 ####[facility] [place] [address], [facility] Creatinine 0.72 mg/dL Normal 0.60-1.20 [facility] Comment on above: Performed By: #### 3 0728, 38710, 22252, 46087 ####[facility] [place] [address], [facility] eGFR (black) mL/min/{1.73_m2} Normal >60 [facility] Comment on above: Performed By: #### 3 0728, 43283, 13395, 51374 ####[facility] [place] [address], [facility] eGFR (non-black) mL/min/{1.73_m2} Normal >60 [facility] Comment on above: Performed By: #### 3 0728, 68760, 87352, 61481 ####[facility] [place] [address], [facility] Glucose mass conc 90 mg/dL Normal 70-100 [facility] Comment on above: Performed By: #### 3 0728, 71768, 79271, 01365 ####[facility] [place] [address], [facility] Potassium molar conc 4.1 mmol/L Normal 3.5-5.1 [facility] Comment on above: Performed By: #### 3 0728, 44452, 55496, 13685 ####[facility] [place] [address], [facility] Protein 7.5 g/dL Normal 6.0-8.3 [facility] Comment on above: Performed By: #### 3 0728, 53231, 58076, 34319 ####[facility] [place] [address], [facility] Sodium 140 mmol/L Normal 136-145 [facility] Comment on above: Performed By: #### 3 0728, 98188, 90000, 32502 ####[facility] [place] [address], [facility] Urea nitrogen 11 mg/dL Normal 7-25 [facility] Comment on above: Performed By: #### 3 0728, 25792, 19221, 22666 ####[facility] [facility] [place] [address], [facility] CPKon 04-24-2017 Creatine kinase (CK) 83 U/L Normal 30-223 [facility] Comment on above: Performed By: #### 3 0728, 33710, 60667, 15359 ####[facility] [facility] [place] [address], [facility] CYCLIC CITRULLINATED PEPTIDE [place] [id number] 04-24-2017 CYCLIC CIT PEP 3 Units Normal 0-19 [facility] Comment on above: Result Comment: INTE RPRETIVE INFORMATION: Cyclic Citrullinated PeptideAntibody, IgG 19 Units or less ................... Negative 20-39 Units ........................ Weak Positive 40-59 Units ........................ Moderate Positive 60 Units or greater ................ Strong PositiveAnti-cyclic citrullinated peptide (anti-CCP), IgGantibodies are present in about 69-83 percent of patientswith rheumatoid arthritis (RA) and have specificities of93-95 percent. These autoantibodies may be present in thepreclinical phase of disease, are associated with future RAdevelopment, and may predict radiographic jointdestruction. Patients with weak positive results should bemonitored and testing repeated.Performed by [facility],[address] [place] [id number] [email or web address], Socrates Nuñez MD - Lab. Director RHEUMATOID FACTOR SERUMon RA <20 Normal 0-20 [facility] Comment on above: Performed By: #### 1 0204, 03584 ####[facility] [facility] [place] [address], [facility] SEDIMENTATION RATEon 017 SED RATE 25 mm/hr High 0-20 [facility] Comment on above: Performed By: #### 5 0103, 84673 ####[facility] TSHon 04-24-2017 Thyroid stimulating hormone (TSH) 0.51 MICRO-IU/ML Normal 0.34-5.60 [facility] Comment on above: Performed By: #### 3 0728, 39652, 65865, 40326 ####[facility] VITAMIN D 25-HYDROXYon 04-24 VITAMIN D 25-OH 44.7 ng/mL Normal 30.0-80.0 [facility] Comment on above: Result Comment: >80. 0 Toxicity possible Performed By: #### 3 0728, 00458, 83709, 95853 ####[facility] [facility].[address] Vital Signs Date Time Vital Sign Value Performing Clinician Facility 03-24-2024 00:37-0400 Diastolic blood pressure 71 mm[Hg] Peter Sue DO Work Phone: [facility] 03-24-2024 00:37-0400 Heart rate 102 /min Peter Sue DO Work Phone: [facility] 03-24-2024 00:37-0400 Respiratory rate 18 /min Peter Sue DO Work Phone: [facility] 03-24-2024 00:37-0400 SaO2% (BldA) [Mass fraction] 96 % Peter Moralescimagdiel DO Work Phone: [facility] 03-24-2024 00:37-0400 Systolic blood pressure 113 mm[Hg] Peter Moralescimagdiel DO Work Phone: [facility] 03-23-2024 16:02-0400 Body height 170.2 cm Peter Sue DO Work Phone: [facility] 03-23-2024 16:02-0400 Body mass index (BMI) [Ratio] 26.63 kg/m2 Peter Sue DO Work Phone: [facility] 03-23-2024 16:02-0400 Body temperature 97.2 [degF] Peter Sue DO Work Phone: [facility] 03-23-2024 16:02-0400 Body weight 77.11 kg Peter Sue DO Work Phone: [facility] 01-29-2024 06:00-0400 Diastolic blood pressure 79 mm[Hg] Services [facility] [employer] Senior Work Phone: [facility] 01-29-2024 06:00-0400 Heart rate 73 /min Services [facility] [employer] Work Phone: [facility] 01-29-2024 06:00-0400 Respiratory rate 20 /min Services [facility] [employer] Work Phone: [facility] 01-29-2024 06:00-0400 SaO2% (BldA) [Mass fraction] 100 % Services [facility] [employer] Work Phone: [facility] 01-29-2024 06:00-0400 Systolic blood pressure 155 mm[Hg] Services [facility] [employer] Work Phone: [facility] 01-29-2024 04:11-0400 Body height 170.18 cm Services [facility] [employer] Work Phone: [facility] 01-29-2024 04:11-0400 Body temperature 98 [degF] Services [facility] Senior Work Phone: [facility] 01-29-2024 04:11-0400 Body weight 87.5 kg Services [facility] [employer] Work Phone: [facility] 12-22-2023 18:16-0400 Diastolic blood pressure 78 mm[Hg] Services [facility] [employer] Work Phone: [facility] 12-22-2023 18:16-0400 Heart rate 73 /min Services [facility] Senior Work Phone: [facility] 12-22-2023 18:16-0400 Respiratory rate 16 /min [facility] Senior Work Phone: [facility] 12-22-2023 18:16-0400 SaO2% (BldA) [Mass fraction] 97 % Services [facility] Senior Work Phone: [facility] 12-22-2023 18:16-0400 Systolic blood pressure 163 mm[Hg] Services [facility] Senior Work Phone: [facility] 12-22-2023 13:27-0400 Body height 170.18 cm Services [facility] Senior Work Phone: [facility] 12-22-2023 13:27-0400 Body temperature 98.1 [degF] Services [facility] Senior Work Phone: [facility] 12-22-2023 13:27-0400 Body weight 87.05 kg Services [facility] [employer] Senior Work Phone: [facility] 11-14-2022 10:09-0400 Diastolic blood pressure 86 mm[Hg] Services [facility] Work Phone: [facility] 11-14-2022 10:09-0400 Heart rate 64 /min [facility] Work Phone: [facility] 11-14-2022 10:09-0400 Respiratory rate 20 /min Services [facility] Work Phone: [facility] 11-14-2022 10:09-0400 SaO2% (BldA) [Mass fraction] 97 % Services [facility] Work Phone: [facility] 11-14-2022 10:09-0400 Systolic blood pressure 149 mm[Hg] Services [facility] Work Phone: [facility] 11-14-2022 08:12-0400 Body height 170.18 cm Services [facility] Work Phone: [facility] 11-14-2022 08:12-0400 Body temperature 97.9 [degF] Services [facility] Work Phone: [facility] 11-14-2022 08:12-0400 Body weight 95.25 kg Services [facility] Work Phone: [facility] 07-19-2022 13:50-0500 Body height 170.2 cm Naa Ziganti PA-C Work Phone: [facility] 07-19-2022 13:50-0500 Body temperature 97.5 [degF] Naa Ziganti PA-C Work Phone: [facility] 07-19-2022 13:50-0500 Body weight 86.18 kg Naa Ziganti PA-C Work Phone: [facility] 07-19-2022 13:50-0500 Diastolic blood pressure 77 mm[Hg] Naa Ziganti PA-C Work Phone: [facility] 07-19-2022 13:50-0500 Heart rate 67 /min Naa Ziganti PA-C Work Phone: [facility] 07-19-2022 13:50-0500 Systolic blood pressure 133 mm[Hg] Naa Ziganti PA-C Work Phone: [facility] 03-19-2022 10:30-0400 Body temperature 99.3 [degF] DO Dwight Irwin Work Phone: [facility] 03-19-2022 10:30-0400 Diastolic blood pressure 97 mm[Hg] DO Dwight Irwin Work Phone: [facility] 03-19-2022 10:30-0400 Heart rate 94 /min DO Dwight Irwin Work Phone: [facility] 03-19-2022 10:30-0400 Respiratory rate 18 /min DO Dwight Irwin Work Phone: [facility] 03-19-2022 10:30-0400 SaO2% (BldA) [Mass fraction] 100 % DO Dwight Irwin Work Phone: [facility] 03-19-2022 10:30-0400 Systolic blood pressure 155 mm[Hg] DO Dwight Irwin Work Phone: [facility] 12-22-2021 08:19-0400 Diastolic blood pressure 60 mm[Hg] DO Dwight Irwin Work Phone: [facility] 12-22-2021 08:19-0400 Heart rate 84 /min DO Dwight Irwin Work Phone: [facility] 12-22-2021 08:19-0400 Respiratory rate 18 /min DO Dwight Irwin Work Phone: [facility] 12-22-2021 08:19-0400 SaO2% (BldA) [Mass fraction] 98 % DO Dwight Irwin Work Phone: [facility] 12-22-2021 08:19-0400 Systolic blood pressure 110 mm[Hg] DO Dwight Irwin Work Phone: [facility] 12-22-2021 06:14-0400 Body height 170.18 cm DO Dwight Irwin Work Phone: [facility] 12-22-2021 06:14-0400 Body mass index (BMI) [Ratio] 33.8 kg/m2 DO Dwight Irwin Work Phone: [facility] 12-22-2021 06:14-0400 Body temperature 97.7 [degF] DO Dwight Irwin Work Phone: [facility] 12-22-2021 06:14-0400 Body weight 97.97 kg DO Dwight Irwin Work Phone: [facility] 08-21-2020 12:15-0500 BP Diastolic 76 mm[Hg] Services [facility] 08-21-2020 12:15-0500 BP Systolic 153 mm[Hg] Services [facility] 08-21-2020 12:15-0500 Pulse (Heart Rate) 102 /min Services [facility] 08-21-2020 12:15-0500 Pulse Oximetry 98 % Services [facility] 08-21-2020 12:15-0500 Respiratory Rate 17 /min Services [facility] 08-21-2020 08:50-0500 BMI (Body Mass Index) 36.1 kg/m2 Services [facility] 08-21-2020 08:50-0500 Body Temperature 98.1 [degF] Services [facility] 08-21-2020 08:50-0500 Body weight 104.7 kg Services [facility] 08-21-2020 08:50-0500 Height 170.18 cm Services [facility] 08-20-2020 12:00-0500 BP Diastolic 78 mm[Hg] Services [facility] 08-20-2020 12:00-0500 BP Systolic 164 mm[Hg] Services [facility] 08-20-2020 12:00-0500 Pulse (Heart Rate) 64 /min Services [facility] 08-20-2020 12:00-0500 Pulse Oximetry 97 % Services [facility] 08-20-2020 12:00-0500 Respiratory Rate 18 /min Services [facility] 08-20-2020 10:34-0500 BMI (Body Mass Index) 34.6 kg/m2 Services [facility] 08-20-2020 10:34-0500 Body Temperature 97.8 [degF] Services [facility] 08-20-2020 10:34-0500 Body weight 100.24 kg Services [facility] 08-20-2020 10:34-0500 Height 170.18 cm Services [facility] 08-16-2020 11:27-0500 Body weight 100.24 kg Services [facility] 08-16-2020 11:27-0500 Height 170.18 cm Services [facility] 08-16-2020 11:26-0500 BP Diastolic 104 mm[Hg] Services [facility] 08-16-2020 11:26-0500 BP Systolic 159 mm[Hg] Services [facility] 08-16-2020 11:26-0500 Pulse (Heart Rate) 86 /min Services [facility] 08-16-2020 11:26-0500 Pulse Oximetry 99 % Services [facility] 08-16-2020 11:26-0500 Respiratory Rate 16 /min Services [facility] 07-22-2020 14:33-0500 BMI (Body Mass Index) 36.5 kg/m2 Services [facility] 07-22-2020 14:33-0500 Body Temperature 97.9 [degF] Services [facility] 07-22-2020 14:33-0500 Body weight 105.7 kg Services [facility] 07-22-2020 14:33-0500 BP Diastolic 80 mm[Hg] Services [facility] 07-22-2020 14:33-0500 BP Systolic 153 mm[Hg] Services [facility] 07-22-2020 14:33-0500 Height 170.18 cm Services [facility] 07-22-2020 14:33-0500 Pulse (Heart Rate) 112 /min Services [facility] 07-22-2020 14:33-0500 Pulse Oximetry 100 % Services [facility] 07-22-2020 14:33-0500 Respiratory Rate 18 /min Services [facility] 06-07-2020 02:17-0500 BP Diastolic 75 mm[Hg] Services [facility] 06-07-2020 02:17-0500 BP Systolic 141 mm[Hg] Services [facility] 06-07-2020 02:17-0500 Pulse (Heart Rate) 90 /min Services [facility] 06-07-2020 02:17-0500 Pulse Oximetry 98 % Services [facility] 06-07-2020 02:17-0500 Respiratory Rate 18 /min Services [facility] 06-07-2020 00:41-0500 BMI (Body Mass Index) 35.6 kg/m2 Services [facility] 06-07-2020 00:41-0500 Body Temperature 98.8 [degF] Services [facility] 06-07-2020 00:41-0500 Body weight 103.3 kg [facility] 06-07-2020 00:41-0500 Height 170.18 cm Services [facility] Encounters Encounter Date Encounter Type Care Provider Facility Start: 06-28-2024 End: 06-28-2024 ambulatory TONY Lopez [facility] Start: 06-28-2024 End: 06-28-2024 Subsequent hospital visit by physician [facility] Start: 05-10-2024 End: 05-10-2024 ambulatory Kim Owens RT(R) Radiology Comment on above: Radiology XR Start: 05-10-2024 End: 05-10-2024 Patient encounter procedure Kim Owens RT(R) Radiology Comment on above: Primary osteoarthrit is of left knee (Primary Dx); Primary osteoarthritis of both knees; Effusion, left knee Start: 05-10-2024 End: 05-10-2024 Subsequent hospital visit by physician Yahir Menendez 1 Work Phone: Radiology Comment on above: Primary osteoarthrit is of left knee [M17.12] Start: 05-04-2024 End: 05-04-2024 Emergency department patient visit CHINTAN JACKMAN Facility:[facility] Start: 03-23-2024 End: 03-24-2024 Emergency department patient visit NO ASSIGNED PCP GENERIC PROVIDER [facility] Work Phone: Comment on above: COVID-19 (Primary Dx ); Pneumonia due to infectious organism, unspecified laterality, unspecified part of lung Start: 03-19-2024 [facility] Start: 01-29-2024 End: 01-29-2024 Emergency department patient visit Services [facility] Work Phone: [facility] Work Phone: Start: 12-22-2023 End: 12-22-2023 Emergency department [facility] visit [facility] Work Phone: [facility] Work Phone: Start: 12-16-2023 End: 12-16-2023 ambulatory Kassandra Klein [facility] Work Phone: Start: 12-16-2023 End: 12-16-2023 Departed Referred ASSISTANT PROFESSOR NURSE EDUCATION-Enrique Klein Work Phone: [facility] Start: 09-11-2023 End: 09-11-2023 Patient encounter procedure Services [facility] Work Phone: [facility]-CT Scan [facility] [place] Work Phone: Start: 09-11-2023 End: 09-11-2023 ambulatory [facility] Work Phone: [facility] Work Phone: Start: 04-17-2023 End: 04-17-2023 ambulatory [facility] Work Phone: [facility] Work Phone: Start: 04-17-2023 End: 04-17-2023 Departed Referred Services [facility] Work Phone: [facility] Start: 04-16-2023 End: 04-16-2023 Patient encounter procedure Services [facility] Work Phone: [facility]XRay [place] Work Phone: Start: 04-16-2023 End: 04-16-2023 ambulatory [facility] Work Phone: [facility] Work Phone: Start: 03-20-2023 End: 03-20-2023 ambulatory [facility] Work Phone: [facility] Work Phone: Start: 03-20-2023 End: 03-20-2023 Departed Referred Services [facility] Work Phone: [facility] Start: 11-28-2022 End: 11-28-2022 ambulatory Services [facility] Work Phone: [facility] Work Phone: Start: 11-28-2022 End: 11-28-2022 Departed Referred Services [facility] Work Phone: [facility] Start: 11-14-2022 End: 11-14-2022 Admission to same day surgery center Services [facility] Work Phone: [facility] Work Phone: Start: 09-12-2022 End: 09-12-2022 ambulatory Services [facility] Work Phone: [facility] Work Phone: Start: 09-12-2022 End: 09-12-2022 Departed Referred Services [facility] Work Phone: [facility] Start: 08-13-2022 End: 08-13-2022 ambulatory Services [facility] Work Phone: [facility] Work Phone: Start: 08-13-2022 End: 08-13-2022 Departed Referred Services [facility] Work Phone: [facility] Start: 08-07-2022 End: 08-07-2022 ambulatory Services [facility] Work Phone: [facility] Work Phone: Start: 08-07-2022 End: 08-07-2022 Patient encounter procedure Services [facility] Work Phone: [facility]XRay [place] Work Phone: Start: 07-23-2022 Orders Only Naa Bah PA-C Work Phone: [facility] Comment on above: 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); Sarcoidosis Start: 07-19-2022 End: 07-19-2022 Patient encounter procedure Naa Bah PA-C Work Phone: [facility] Comment on above: Sarcoidosis (Primary Dx); Polyarthralgia; Abnormal laboratory test Start: 07-16-2022 End: 07-16-2022 ambulatory Services [facility] Work Phone: [facility] Work Phone: Start: 07-16-2022 End: 07-16-2022 Departed Referred Services [facility] Work Phone: [facility] Start: 03-19-2022 End: 03-19-2022 Emergency department patient visit DO Dwight Irwin Work Phone: [facility]-Emergency Room Start: 03-19-2022 End: 03-19-2022 Patient encounter procedure DO Dwight Irwin Work Phone: [facility]-Electrodiagnostics Start: 12-22-2021 End: 12-22-2021 Emergency department patient visit DO Dwight Irwin Work Phone: [facility]-Emergency Room Start: 07-05-2021 ambulatory [facility] Facili ty:H1 Start: 03-09-2021 End: 03-09-2021 ambulatory [facility] Facility:H1 Start: 03-03-2021 ambulatory [facility] Facili ty:H1 Start: 02-28-2021 End: 03-01-2021 ambulatory [facility] Facility:H1 Start: 08-21-2020 End: 08-21-2020 Emergency department patient visit Services [facility] -Emergency Room Start: 08-20-2020 End: 08-20-2020 Emergency department patient visit Services [facility] -Emergency Room Start: 08-16-2020 End: 08-16-2020 Patient encounter procedure Services [facility] -MRI [place] Start: 08-02-2020 End: 08-02-2020 Patient encounter procedure Services [facility] -XRay [place] Start: 07-22-2020 End: 07-22-2020 Emergency department patient visit Services [facility] -Emergency Room Start: 06-08-2020 End: 06-08-2020 Departed Referred Services [facility] Start: 06-07-2020 End: 06-07-2020 [facility] Start: 05-23-2020 End: 05-23-2020 Departed Referred Services [facility] Start: 04-24-2017 End: 04-25-2017 Ambulatory REFERRED SELF Facility:[facility] Procedures Date Procedure Procedure Detail Performing Clinician Start: 06-28-2024 Hemoglobin glycosylated a1c Tony Dion FISCHERN - TENT FINISHER Work Phone: Start: 05-10-2024 Arthrocentesis aspir&/inj major jt/bursa w/o us Pamnir Wang PA-C Work Phone: Start: 05-10-2024 Radiologic exam knee complete 4/more views Pam Wang PA-C Work Phone: Start: 03-23-2024 Ct abdomen & pelvis w/contrast material Peter Sue DO Work Phone: Start: 03-23-2024 Assay of troponin quantitative Peter Sue DO Work Phone: Start: 03-23-2024 Culture bacterial blood aerobic w/id isolates Peter Sue DO Work Phone: Start: 03-23-2024 Comprehensive metabolic panel Peter Sue DO Work Phone: Start: 03-23-2024 Influenza virus A and B RNA [Identifier] in Unspecified specimen by GINETTE with probe detection Peter Sue DO Work Phone: Start: 03-23-2024 SARS-CoV-2 (COVID-19) RNA [Presence] in Respiratory specimen by GINETTE with probe detection Peter Sue DO Work Phone: Start: 03-23-2024 Troponin I.cardiac panel - Serum or Plasma by High sensitivity method Peter Sue DO Work Phone: Start: 03-23-2024 Radiologic exam chest 2 views Peter Sue DO Work Phone: Start: 12-22-2023 Computed tomography of abdomen and pelvis with contrast Services [facility] [employer] Work Phone: Start: 12-22-2023 Plain chest X-ray Services [facility] [employer] Work Phone: Start: 09-11-2023 Computed tomography of abdomen and pelvis with contrast Services [facility] [employer] Work Phone: Start: 04-17-2023 Respiratory Panel (PCR) Services [employer] Work Phone: Start: 04-16-2023 X-ray of left ankle Services [employer] Work Phone: Start: 11-14-2022 Screening colonoscopy Services [employer] Work Phone: Start: 08-13-2022 Respiratory Panel (PCR) Services [employer] Work Phone: Start: 08-07-2022 X-ray of lumbar spine, four or more views Services [employer] Work Phone: Start: 03-19-2022 X-ray of left ankle DO [employer] Work Phone: Start: 03-19-2022 Plain chest X-ray DO [employer] Phone: Start: 12-22-2021 Duplex scan of lower limb veins DO Pre[facility] Work Phone: Start: 12-22-2021 Plain chest X-ray DO [facility] Work Phone: Start: 08-21-2020 Bacteria identified Cx Nom (U) Services [facility] [employer] Start: 08-20-2020 Plain chest X-ray Services [facility] [employer] Start: 08-16-2020 MRI of head Services [facility] [employer] Start: 08-02-2020 Radiography of cervical spine Services [facility] [employer] Start: 08-02-2020 X-ray of lumbar spine, two or three views Services [facility] Start: 08-02-2020 XR hip LT 2V Services [facility] Start: 06-07-2020 Plain chest X-ray Services [facility] H/O: surgery S/P dilatation o f esophageal stricture DO Prezto Work Phone: Laboratory test resu lt abnormal Abnormal laboratory test Naa Bah PA-C Work Phone: SARS Antigen (LFIA) DO Dwight Irwin Work Phone: Plan of Treatment Date Care Activity Detail Author Start: 05-04-2027 Diabetes Screening Diabetes Screenbreana [facility] Start: 07-19-2025 DIABETES SCREEN DIABETES SCREEN [facility] Start: 06-01-2024 End: 06-01-2024 Patient encounter procedure 06/01/2024 1:00 PM EST OT/PT/Speech Visit [facility] [id number] [facility] [place] [id number] [place] [id number] [facility] [place] [address] Primary osteoarthritis of left knee [M17.12] [facility] Comment on above: Primary osteoarthrit is of left knee [M17.12] Start: 02-29-2024 COVID-19 Vaccine ( season) COVID-19 Vaccine ( season) [facility] Start: 02-29-2024 Covid-19 Vaccine ( season) Covid-19 Vaccine ( season) [facility] Start: 02-29-2024 Influenza vaccination Influenza Vacc ine (#1) [facility] Start: 01-29-2024 Computed tomography of abdomen and pelvis with contrast CT abdomen pelvis w con [facility] Start: 01-29-2024 CT Abdomen and Pelvi s W contrast IV [facility] Start: 11-14-2022 [facility] Start: 07-19-2022 End: 09-18-2022 Protein/Creatinine [Mass Ratio] in Urine PROTEIN CREATININE RATIO Lab Routine Sarcoidosis Polyarthralgia Abnormal laboratory test Expected: 07/19/2022, Expires: 09/18/2022 [facility] Work Phone: Comment on above: Expected: 07/19/2022 , Expires: 09/18/2022 Start: 07-19-2022 End: 09-18-2022 Urinalysis complete panel - Urine URINALYSIS WITH MICROSCOPIC, REFLEX CULTURE Lab Routine Sarcoidosis Polyarthralgia Abnormal laboratory test Expected: 07/19/2022, Expires: 09/18/2022 [facility] Work Phone: Comment on above: Expected: 07/19/2022 , Expires: 09/18/2022 Start: 06-30-2022 DEPRESSION ASSESSMENT DEPRESSION ASS ESSMENT [facility] Start: 02-28-2022 Influenza vaccination INFLUENZA (#1) [facility] Start: 04-10-2021 COVID-19 VACCINE (3 - Booster for Moderna series) COVID-19 VACCINE (3 - Booster for Moderna series) [facility] Start: 2015 SHINGRIX VACCINE (1 of 2) SHINGRIX VACCINE (1 of 2) [facility] Start: 2015 Zoster Vaccines (1 of 2) Zoster Vacc pricila (1 of 2) [facility] Start: 2010 COLOGUARD (FIT-DNA) COLOGUARD (FIT-D NA) [facility] Start: 2010 Colonoscopy COLONOSCOPY [facility] Start: 2010 COLORECTAL CANCER SCREENING COLORECTAL CANCER SCREENING [facility] Start: [address] COLONOGRAPHY [facility] Start: 2010 FECAL OCCULT BLOOD FECAL OCCULT BLOO D [facility] Start: 2010 Lipid panel Lipid Screening [facility] Start: 2010 LIPID SCREEN LIPID SCREEN [facility] Start: 2010 Screening for malign ant neoplasm of colon [facility] Start: 2010 SIGMOIDOSCOPY SIGMOIDOSCOPY [facility] Start: 2005 Mammography MAMMOGRAM [facility] Start: 2005 Screening for malign ant neoplasm of breast Mammogram Screening [facility] Start: 1995 HPV TESTING HPV TESTING [facility] Start: 1987 DTaP/Tdap/Td Vaccine s (1 - Tdap) DTaP/Tdap/Td Vaccines (1 - Tdap) [facility] Start: 1986 PAP TESTING PAP TESTING [facility] Start: 1986 Screening for malign ant neoplasm of cervix [facility] Start: 1984 Hepatitis B Vaccines (1 of 3 - 19+ 3-dose series) Hepatitis B Vaccines (1 of 3 - 19+ 3-dose series) [facility] Start: 1984 Urine microalbumin profile [facility] Start: 1983 Anxiety Screening Anxiety Screening [facility] Start: 1983 Depression Screening Depression Scre ening [facility] Start: 1983 Diabetes mellitus screening Diabetes Screening [facility] Start: 1983 Hepatitis C screening Hepatitis C Sc reening [facility] Start: 1983 HIV SCREENING HIV SCREENING [facility] Start: 1983 HIV screening HIV Screening [facility] Start: 1966 MMR Vaccines (1 of 1 - Standard series) MMR Vaccines (1 of 1 - Standard series) [facility] Start: 1965 HEPATITIS B (1 of 3 - 3-dose series) HEPATITIS B (1 of 3 - 3-dose series) [facility] Start: 1965 HIV screening HIV Screening [facility] Start: 1965 Lipid panel Lipid Panel [facility] Start: 1965 Screening for malign ant neoplasm of colon [facility] Start: 1965 Yearly Adult Physical Yearly Adult P hysical [facility] Atopobium vaginae DN A [Presence] in Vaginal fluid by GINETTE with probe detection [facility] Bacteria identified in Blood by Culture Blood Culture Microbiology STAT 03/23/2024 6:50 PM EDT [facility] Work Phone: Bacterial vaginosis associated bacterium 2 DNA [Presence] in Vaginal fluid by GINETTE with probe detection [facility] Chlamydia trachomati s rRNA [Presence] in Cervix by GINETTE with probe detection [facility] End: 03-23-2024 ECG 12 lead [facility] Service Area Work Phone: Comment on above: Once for 1 Occurrenc es starting 03/23/2024 until 03/23/2024 Glucose measurement estimated from glycated hemoglobin [facility] Hemoglobin A1c/Hemoglobin.total in Blood [facility] Human papilloma viru s 16+18+31+33+35+39+45+51+ 52+56+58+59+66+68 DNA [Presence] in Cervix by Probe with signal amplification [facility] Human papilloma viru s 16+18+31+33+35+39+45+51+ 52+56+58+59+68 DNA [Presence] in Cervix by Probe with signal amplification [facility] Megasphaera sp type 1 DNA [Presence] in Vaginal fluid by GINETTE with probe detection [facility] Neisseria gonorrhoea e rRNA [Presence] in Cervix by GINETTE with probe detection [facility] Patient Education [facility] Patient referral [facility] End: 03-23-2024 Pulse oximetry, continuous Pulse oximetry, continuous Respiratory Care STAT Continuous until discontinued starting 03/23/2024 [facility] Work Phone: Comment on above: Continuous until dis continued starting 03/23/2024 Rheumatoid factor [Units/volume] in Serum or Plasma [facility] Immunizations Immunization Date Immunization Notes Care Provider Eugenio landa 02-28-2019 influenza virus vaccine, unspecified formulation Peter Sue DO Work Phone: [facility] Work Phone: 05-01-2018 influenza, injectabl e, quadrivalent, preservative free Services [facility] 05-01-2018 influenza virus vaccine, unspecified formulation Kim Owens RT(R) [facility] Payers Date Payer Category Payer Self-pay [id number] 2022 Medicaid [id number] 2020 Medicaid [id number] 1965 Unknown [id number] 2.16.84 [id number] 1965 Unknown [id number] 2.16.84 [id number] 1965 Unknown [id number] 2.16.84 [id number] 1965 Unknown [id number] 2.16.84 [id number] 1965 Unknown [id number] 1965 Unknown [id number] 2.16.8 [id number] 1959 Unknown [id number] Medicaid [id number] Medicaid [place] [employer] [id number] 401 [id number] Unknown Insurance No Card [id number] 2.16.8 [id number] Unknown [id number] 2.16.8 [id number] Unknown [id number] 2.16.8 [id number] Unknown [id number] 2.16.8 [id number] Unknown [id number] 2.16.8 [id number] Unknown [id number] 2.16.8 [id number] Unknown [id number] 2.16.8 [id number] Social History Date Type Detail Facility Start: 05-18-2013 End: 08-21-2020 Tobacco smoking status INIS Ex-smoker (finding) [facility] Work Phone: Start: 1965 Sex Assigned At Female F [facility] Start: 03-19-2022 End: 09-20-2022 Tobacco smoking status NHIS Never smoked tobacco (finding) [facility] Start: 12-22-2023 End: 01-29-2024 History of tobacco use Current smoker [facility] Work Phone: Start: 05-18-2013 Tobacco use and exposure Smokeless tobacco non-user [facility] Work Phone: Start: 07-19-2022 [facility] Start: 1965 Sex Assigned At Not on file [facility] Start: 10-18-2012 End: 07-19-2022 History of tobacco use [facility] Start: 10-18-2012 End: 07-19-2022 History of Social function [facility] Adult Depression Screening Assessment 3 [facility] (I/We) worried whether (my/our) food would run out before (I/we) got money to buy more. Never true [facility] Tobacco smoking status NHIS Tobacco smoking consumption unknown [facility] Work Phone: Start: 03-13-2024 End: 03-23-2024 Exposure to SARS-CoV-2 (event) Not sure [facility] Work Phone: NEGATED: Highlighted row [facility] Goals Date Patient Goal Desired Activity /State Clinical Notes 03-09-2021 to 05-10-2024 Maryam Suh Cast Tech - 05/10/2024 10:24 AM Pam Canas PA-C - 05/10/2024 9:17 AM ESTPatient InstructionsKim Owens RT(R) - 05/10/2024 8:28 AM ESTDischarge InstructionsAttachments Note Date & Type Note Facility 05-10-2024 Note HNO ID: [id number] Author: MARYAM SUH Cast Tech Service: ? Author Type: Slasher Sawyer Type: Progress Notes Filed: 05/10/2024 17:23 Note Text: Fitted patient with medium Medial/Lateral OA Reaction brace for the left knee. Instructions were given on application/adjustments. Will f/u as scheduled/prn. Maryam Suh, [facility] 05-10-2024 History of Present illness Narrative Fitted patient with medium Medial/Lateral OA Reaction brace for the left knee. Instructions were given on application/adjustments. Will f/u as scheduled/prn. PAULETTE Chamorro Associated Order(s): Large Joint Arthro/Inj: L knee joint Post-Procedure Diagnose(s): Primary osteoarthritis of left knee; Effusion, left knee SERVICE DATE: May 10, 2024 PCP: Kassandra Klein, TENT FINISHER, ASSISTANT PROFESSOR NURSE EDUCATION Consult requested by emergency department for an opinion regarding chief complaint as stated below. My final impression and recommendations will be communicated back to the requesting physician by way of the shared medical record or letter via US mail. Subjective Patient ID: London is a 59 year old female. Chief Complaint: Patient presents with: Left Knee - New, Knee Pain PAIN EVALUATION 05/10/2024 0902 Pain Level: 10 Pain Location: Knee-Left Description: Aching;Sore;Sharp;Dull Duration Amount of Time: 5 Duration Units: Months Frequency: Intermittent Intervention/Comfort measure: Reposition;Relaxation Patient is a 59-year-old 5 foot 7 inch 180 pound medically retired female who is here with complaints of bilateral knee pain with the left significantly worse than the right for the last 2 years. However she notes that in the last 4 months both have been getting worse and particularly in the last week her left knee has become quite uncomfortable and swollen. She notes increased discomfort in her left knee with any significant walking and going up stairs particularly. Has minimal symptoms on her right. She notes that she had a cortisone injection a year ago in the left knee with relief though it only lasted a few weeks. This was given by her PCP. She was recently seen in the ED for increased pain and swelling and given an injection and instructed to use a lidocaine patch which really has not given her any relief. Taking Tylenol fairly regularly as well. Does not have a brace for this. Pain level is a 10/10 at times. Denies hip pain complaints. Denies radicular symptoms. Denies any previous injury to this knee. TREATMENTS PRIOR TO INITIAL CONSULT: Tylenol and lidocaine patch without much relief Left Corticosteroid Injection(s) 1 year ago with short-lived relief of a few weeks Review of Systems Constitutional: Negative for fever. HENT: Negative for congestion. Respiratory: Negative for cough and shortness of breath. History of COPD and sarcoidosis Cardiovascular: History of congestive heart failure and hypertension which is well-controlled. Endocrine: Negative for diabetic associated symptoms. Skin: Negative for color change and rash. Neurological: Negative for numbness. Hematological: Negative for blood/clotting disorder. Musculoskeletal: Positive for joint swelling. All other systems reviewed and are negative. ACTIVE PROBLEM LIST Lymphadenopathy Primary Osteoarthritis of Both Knees PAST MEDICAL HISTORY Diagnosis Date Depression Diabetes (HCC) Hypertension Sarcoidosis PAST SURGICAL HISTORY Procedure Laterality Date TONSILLECTOMY HX FAMILY HISTORY Problem Relation Age of Onset Cancer Sister Diabetes Sister Social History Tobacco Use Smoking status: Former Smokeless tobacco: Never ALLERGIES Allergen Reactions Tramadol Other: See Comments MEDICATIONS: acetaminophen (TYLENOL) 325 mg tablet Take 1-2 tablets by mouth every 4 hours as needed for pain for up to 7 days. empagliflozin (JARDIANCE) 10 mg tablet Take 10 mg by mouth daily with breakfast. ARIPiprazole (ABILIFY) 10 mg tablet Take 10 mg by mouth once daily. losartan (COZAAR) 50 mg tablet Take 50 mg by mouth once daily. cyclobenzaprine (FLEXERIL) 10 mg tablet Take by mouth three times daily. gabapentin (NEURONTIN) 300 mg capsule Take 2 capsules by mouth twice daily for 90 days. amLODIPine (NORVASC) 10 mg tablet Take 10 mg by mouth once daily. albuterol (PROVENTIL) 2.5 mg /3 mL (0.083 %) nebulizer solution Inhale 2.5 mg as instructed every 6 hours as needed. ferrous sulfate 325 mg (65 mg iron) tablet Take 1 tablet by mouth once daily. LORazepam (ATIVAN) 0.5 mg tab Take 0.5 mg by mouth twice daily as needed. ergocalciferol 50,000 unit capsule (VITAMIN D2, DRISDOL) TAKE 1 CAPSULE BY MOUTH ONE TIME PER WEEK HYDROcodone-acetaminophen (NORCO) 5-325 mg per tablet Take 1 tablet by mouth twice daily as needed. (Patient not taking: Reported on 07/19/2022) BUDESONIDE/FORMOTEROL FUMARATE (SYMBICORT INHALATION) Inhale as instructed. ALBUTEROL INHALATION Inhale as instructed. dexamethasone 4 mg tablet Take 4 mg by mouth twice daily with meals. (Patient not taking: Reported on 07/19/2022) atenolol 50 mg tablet Take 50 mg by mouth once daily. Calcium Carbonate-Vitamin D3 180-5,000 mg-unit tab Take by mouth. Allergies, medications, past surgical history, family history and past medical history were reviewed per this encounter. Objective Right Knee Exam Right knee exam is normal. Tenderness The patient is experiencing no tenderness. Range of Motion Extension: 0 Flexion: 130 Left Knee Exam Tenderness The patient is experiencing tenderness in the medial joint line and patella. Range of Motion Extension: 0 (Near) Flexion: 110 (Tightness at extreme) Tests Ayla: Anterior - negative Drawer: Anterior - negative Posterior - negative Patellar apprehension: negative Other Erythema: absent Sensation: normal Pulse: present Swelling: moderate Effusion: effusion present Comments: She has a 2+ effusion of the knee. She has a correctable varus deformity. No other instability. Pain with patellofemoral compression. Significant quadriceps deconditioning on the left compared to the right. Good hip range of motion without irritability. RADIOGRAPHS: Reviewed personally x-rays taken in the ED which were nonweightbearing as well as weightbearing films that were taken today and reviewed with the patient as well showing significant medial compartment narrowing of the left knee on AP weightbearing down to a few millimeters with further narrowing on flexion weightbearing view down to [id number] medially. Good maintenance of joint space laterally. Level patella tracking and minimal patellofemoral degenerative changes noted on skyline view. Good maintenance of joint space of the right knee. No other osseous abnormalities. Assessment/Plan ASSESSMENT Diagnosis (M17.12) Primary osteoarthritis of left knee (primary encounter diagnosis) Plan: OA BRACE - MECHANICS HANDYMAN - L1845, CONSULT TO PHYSICAL THERAPY, Large Joint Arthro/Inj: L knee joint (M17.0) Primary osteoarthritis of both knees Plan: XR KNEE GENERAL 4V AP BOTH/PA BOTH/LAT/MERC LEFT, CANCELED: Large Joint Arthro/Inj: bilateral knee joints (M25.462) Effusion, left knee Plan: Large Joint Arthro/Inj: L knee joint Office Visit on 05/10/24 Large Joint Arthro/Inj: bilateral knee joints *Canceled* Large Joint Arthro/Inj: L knee joint OA BRACE - MECHANICS HANDYMAN - L1845 XR KNEE GENERAL 4V AP BOTH/PA BOTH/LAT/MERC LEFT CONSULT TO PHYSICAL THERAPY PLAN We discussed that she has significant medial compartment arthritis of her left knee as well as an effusion of the knee. She really has not had any significant treatment for this. Suggest that we consider aspiration and injection of the knee today with cortisone to quiet this down. Will then fit her with a medial gold prospector brace for stability and get her into some physical therapy to address the quadriceps deconditioning. Follow-up in 6 weeks for recheck. She agrees with this plan. We discussed the use of ice for postinjection pain. Large Joint Arthro/Inj: L knee joint Informed Consent Consent Obtained: Verbal [place] Protocol A moment to CARE was completed. SIGN IN Personnel directly involved with the procedure wore the appropriate PPE. Special Equipment: N/A Patient/Surrogate Stated/Verified: Patient name, Date of , Relevant allergies and Intended procedure TIME OUT Intended patient and procedure match the source document(s). Consent documented and matches the intended procedure. Relevant labs, photos, and/or imaging studies have been reviewed. Correct side/site marked and visible. Medications required for procedure verified. No fire risk assessment and interventions applicable. No implant(s) inserted. 05/10/2024 9:51 AM The procedure site was prepped in the usual sterile fashion. Site: L knee joint Aspirate: 33 mL yellow and clear Medications: 80 mg triamcinolone acetonide 40 mg/mL Anesthetics: 8 mL lidocaine (PF) 10 mg/mL (1 %) Outcome: Tolerated well, no immediate complications Post-injection instructions were reviewed with the patient and the patient voiced understanding of these instructions. SIGN OUT No specimen collected. No instruments, equipment or retained foreign bodies applicable. Third constitution party verified by Tyrese De La Cruz MA. FOLLOW-UP: Return in 6 weeks (on 06/21/2024), or if symptoms worsen or fail to improve. SIGNATURE: Pam Wang PA-C PATIENT NAME: London Velasquez DATE: May 10, 2024 TIME: 9:23 AM documented in this encounter [facility] 05-10-2024 Instructions Pam Wang PA-C - 05/10/2024 10:03 AM EST POST INJECTION CARE: -A normal response to the injection is decreased pain from the lidocaine (numbing medication) for several hours followed by increased pain for hours to several days. The cortisone will usually kick in within 2-3 days but can take up to 10 days to have the full effect. -Avoid heavy activity until pain subsides. -Ice 10-15min several times for the next day or so or until pain subsides. -tylenol for pain -if you experience redness or flushing sensation in your face and neck, rest, apply cold compress, or try a benadryl. This reaction is normal and should lesson over 24 hours. -every injection carries the risk of infection. If you experience increased redness, swelling, pain, fever, chills, or other concern for infection pleasec ontact our office immediately. If night or weekend, go to nearest emergency room. PLEASE BE AWARE THAT CORTISONE INJECTIONS WILL RAISE YOUR BLOOD SUGAR AND WHITE BLOOD CELL COUNT (WBC) FOR SEVERAL DAYS. *DIABETICS SHOULD NOT ADJUST THEIR MEDICATIONS TO THE INCREASE, THIS IS VERY TEMPORARY AND ADDING MORE MEDICATION/INSULIN CAN MAKE YOUR BLOOD SUGARS DROP LOW WHICH IS MUCH MORE DANGEROUS. send us a my chart message in three weeks and let us know how you are doing documented in this encounter [facility] 05-10-2024 Note HNO ID: [id number] Author: PAM WANG PA-C Service: ? Author Type: Physician Coffee Urn Attendant Type: Progress Notes Filed: 05/10/2024 17:23 Note Text: SERVICE DATE: May 10, 2024 PCP: Kassandra Klein CNP, ASSISTANT PROFESSOR NURSE EDUCATION Consult requested by emergency department for an opinion regarding chief complaint as stated below. My final impression and recommendations will be communicated back to the requesting physician by way of the shared medical record or letter via US mail. Subjective Patient ID: London is a 59 year old female. Chief Complaint: Patient presents with: Left Knee - New, Knee Pain PAIN EVALUATION 05/10/2024 0902 Pain Level: 10 Pain Location: Knee-Left Description: Aching;Sore;Sharp;Dull Duration Amount of Time: 5 Duration Units: Months Frequency: Intermittent Intervention/Comfort measure: Reposition;Relaxation Patient is a 59-year-old 5 foot 7 inch 180 pound medically retired female who is here with complaints of bilateral knee pain with the left significantly worse than the right for the last 2 years. However she notes that in the last 4 months both have been getting worse and particularly in the last week her left knee has become quite uncomfortable and swollen. She notes increased discomfort in her left knee with any significant walking and going up stairs particularly. Has minimal symptoms on her right. She notes that she had a cortisone injection a year ago in the left knee with relief though it only lasted a few weeks. This was given by her PCP. She was recently seen in the ED for increased pain and swelling and given an injection and instructed to use a lidocaine patch which really has not given her any relief. Taking Tylenol fairly regularly as well. Does not have a brace for this. Pain level is a 10/10 at times. Denies hip pain complaints. Denies radicular symptoms. Denies any previous injury to this knee. TREATMENTS PRIOR TO INITIAL CONSULT: Tylenol and lidocaine patch without much relief Left Corticosteroid Injection(s) 1 year ago with short-lived relief of a few weeks Review of Systems Constitutional: Negative for fever. HENT: Negative for congestion. Respiratory: Negative for cough and shortness of breath. History of COPD and sarcoidosis Cardiovascular: History of congestive heart failure and hypertension which is well-controlled. Endocrine: Negative for diabetic associated symptoms. Skin: Negative for color change and rash. Neurological: Negative for numbness. Hematological: Negative for blood/clotting disorder. Musculoskeletal: Positive for joint swelling. All other systems reviewed and are negative. ACTIVE PROBLEM LIST Lymphadenopathy Primary Osteoarthritis of Both Knees PAST MEDICAL HISTORY Diagnosis Date Depression Diabetes (HCC) Hypertension Sarcoidosis PAST SURGICAL HISTORY Procedure Laterality Date TONSILLECTOMY HX FAMILY HISTORY Problem Relation Age of Onset Cancer Sister Diabetes Sister Social History Tobacco Use Smoking status: Former Smokeless tobacco: Never ALLERGIES Allergen Reactions Tramadol Other: See Comments MEDICATIONS: acetaminophen (TYLENOL) 325 mg tablet Take 1-2 tablets by mouth every 4 hours as needed for pain for up to 7 days. empagliflozin (JARDIANCE) 10 mg tablet Take 10 mg by mouth daily with breakfast. ARIPiprazole (ABILIFY) 10 mg tablet Take 10 mg by mouth once daily. losartan (COZAAR) 50 mg tablet Take 50 mg by mouth once daily. cyclobenzaprine (FLEXERIL) 10 mg tablet Take by mouth three times daily. gabapentin (NEURONTIN) 300 mg capsule Take 2 capsules by mouth twice daily for 90 days. amLODIPine (NORVASC) 10 mg tablet Take 10 mg by mouth once daily. albuterol (PROVENTIL) 2.5 mg /3 mL (0.083 %) nebulizer solution Inhale 2.5 mg as instructed every 6 hours as needed. ferrous sulfate 325 mg (65 mg iron) tablet Take 1 tablet by mouth once daily. LORazepam (ATIVAN) 0.5 mg tab Take 0.5 mg by mouth twice daily as needed. ergocalciferol 50,000 unit capsule (VITAMIN D2, DRISDOL) TAKE 1 CAPSULE BY MOUTH ONE TIME PER WEEK HYDROcodone-acetaminophen (NORCO) 5-325 mg per tablet Take 1 tablet by mouth twice daily as needed. (Patient not taking: Reported on 07/19/2022) BUDESONIDE/FORMOTEROL FUMARATE (SYMBICORT INHALATION) Inhale as instructed. ALBUTEROL INHALATION Inhale as instructed. dexamethasone 4 mg tablet Take 4 mg by mouth twice daily with meals. (Patient not taking: Reported on 07/19/2022) atenolol 50 mg tablet Take 50 mg by mouth once daily. Calcium Carbonate-Vitamin D3 180-5,000 mg-unit tab Take by mouth. Allergies, medications, past surgical history, family history and past medical history were reviewed per this encounter. Objective Right Knee Exam Right knee exam is normal. Tenderness The patient is experiencing no tenderness. Range of Motion Extension: 0 Flexion: 130 Left Knee Exam Tenderness The patient is experiencing tenderness in (more content not included)... [facility] 05-10-2024 Note HNO ID: [id number] Author: KIM OWENS RT(R) Service: ? Author Type: Technologist Type: Progress Notes Filed: 05/10/2024 08:28 Note Text: Radiology Service Progress Note PATIENT NAME: London Velasquez DATE OF SERVICE: May 10, 2024 TIME: 8:28 AM PATIENT IDENTITY VERIFICATION COMPLETED USING TWO (2) IDENTIFIERS: Name and Date of confirmed by patient verbally. FALL SCREENING: Has the patient had 2 falls in the last year or 1 fall with injury or currently using an Ambulatory Assistive Device (Walker, Cane, Wheelchair, Crutches, etc.)? No PATIENT GENDER DATA: Female. status: : No status: NO. PATIENT RELEVANT IMPLANT DATA REVIEWED: Not Applicable PATIENT PRESENTS WITH AN IMPLANTABLE OR ATTACHED SQL DATABASE ADMINISTRATOR: No RADIOLOGY DEPARTMENT: General X-ray: Exam(s) Completed: Lower Extremity X-Ray(s): Knee, AP / Lat / Tunne / Merchant Left PERIPHERAL IV DATA: Not applicable SIGNED BY: RT Jesus(R) May 10, 2024 8:28 AM [facility] 05-10-2024 History of Present illness Narrative Radiology Service Progress Note PATIENT NAME: London Velasquez DATE OF SERVICE: May 10, 2024 TIME: 8:28 AM PATIENT IDENTITY VERIFICATION COMPLETED USING TWO (2) IDENTIFIERS: Name and Date of confirmed by patient verbally. FALL SCREENING: Has the patient had 2 falls in the last year or 1 fall with injury or currently using an Ambulatory Assistive Device (Walker, Cane, Wheelchair, Crutches, etc.)? No PATIENT GENDER DATA: Female. status: : No status: NO. PATIENT RELEVANT IMPLANT DATA REVIEWED: Not Applicable PATIENT PRESENTS WITH AN IMPLANTABLE OR ATTACHED SQL DATABASE ADMINISTRATOR: No RADIOLOGY DEPARTMENT: General X-ray: Exam(s) Completed: Lower Extremity X-Ray(s): Knee, AP / Lat / Tunne / Merchant Left PERIPHERAL IV DATA: Not applicable SIGNED BY: RT Jesus(R) May 10, 2024 8:28 AM documented in this encounter [facility] 03-23-2024 Hospital Discharge instructions Harry Welch MD - 03/23/2024 11:05 PM EDT You have been given a prescription for medication similar to your previous Symbicort as well as an antibiotic for pneumonia. You should follow-up with your primary care physician. Return to the emergency department with any worsening symptoms. It is important to remember that your care does not end here and you must continue to monitor your condition closely. Please return to the emergency department for any worsening or concerning signs or symptoms as directed by our conversations and the discharge instructions. If you do not have a doctor please contact the referral number on your discharge instructions. Please contact any physician specialists provided in your discharge notes as it is very important to follow up with them regarding your condition. If you are unable to reach the physicians provided, please come back to the Emergency Department at any time. Return to emergency room without delay for ANY new or worsening pains or for any other symptoms or concerns. Return with worsening pains, nausea, vomiting, trouble breathing, palpitations, shortness of breath, inability to pass stool or urine, loss of control of stool or urine, any numbness or tingling (that is not normal for you), uncontrolled fevers, the passing of blood or other material in stool or urine, rashes, pains or for any other symptoms or concerns you may have. You are always welcome to return to the ER at any time for any reason or for any other concerns you may have. The following attachments cannot be sent through Care Everywhere.Community-acquired pneumonia in adults (Greenlandic)documented in this encounter [facility] Work Phone: 03-23-2024 Emergency department Note Patient received in sign out from Dr Sue. Patient with pneumonia, Covid-19 positive. Elevated LFTs pending imaging at this time. Abdominal CT does not reveal any signs of biliary ductal dilation. Patient was advised of need for follow-up with primary care physician. Patient is out of her Symbicort so was given a prescription for Advair discus temporarily until she can follow-up with her primary care physician. Patient given prescription for antibiotics for pneumonia. Return precautions given for any worsening symptoms. Patient felt to be at low risk for major adverse event from outpatient treatment of pneumonia by curb 65 score. Parts of this chart were completed with dictation software, please excuse any errors in debate director. Harry Welch MD 03/23/24 [id number] documented in this encounter [facility] Work Phone: 03-23-2024 Physician Emergency department Note Patient received in sign out from Dr Sue. Patient with pneumonia, Covid-19 positive. Elevated LFTs pending imaging at this time. Abdominal CT does not reveal any signs of biliary ductal dilation. Patient was advised of need for follow-up with primary care physician. Patient is out of her Symbicort so was given a prescription for Advair discus temporarily until she can follow-up with her primary care physician. Patient given prescription for antibiotics for pneumonia. Return precautions given for any worsening symptoms. Patient felt to be at low risk for major adverse event from outpatient treatment of pneumonia by curb 65 score. Parts of this chart were completed with dictation software, please excuse any errors in debate director. Harry Welch MD 03/23/24 [id number] [facility] Work Phone: 03-19-2024 Note SARS-COV-2 (AGENT OF COVID-19) RNA: Not detected INFLUENZA A RNA: Not detected INFLUENZA B RNA: Not detected RESPIRATORY SYNCYTIAL VIRUS (RSV) RNA: Not detected [facility] Comment on above: Performed By: #### 9 [id number] #### [facility] CLIA [id number] [id number] [facility] 07-19-2022 Instructions Naa Bah PA-C - 07/19/2022 2:36 PM EST Lab work and Xrays Take gabapentin 600 mg (2 tablets of 300 mg) twice daily. If no relief, after 4 days on the new dose, you may increase to gabapentin 900 mg (3 tablets of 300 mg) twice daily as needed for pain. Follow up with physician for further management. documented in this encounter [facility] 07-19-2022 History of Present illness Narrative Images from the original note were not included. Rheumatology Outpatient Clinic Date of Service: 07/19/2022 Patient: London Velasquez Medical Record: [id number] Primary Care Physician: Chintan Jackman MD Last Rheumatology visit: None at the [facility] Referring Provider: SELF History of Present Illness London Velasquez is a 57 year old Black female who presents on 07/19/2022 for an in-person visit for evaluation of Joint Pain. London is both RF - 9 (07/19/2022) and CCP - 13.5 (07/19/2022) negative. Her most recent ALEXY was negative (05/18/2013). HISTORY OF PRESENT ILLNESS London Velasquez is a 57 year old female who presents today for evaluation of joint pain. Patient was seen at [facility] back in 2019 where she had reported she had sarcoidosis since 2015. It was recommended she establish with the sarcoid clinic. Patient was lost to follow up. Per care everywhere, it appears patient was obtaining care for sarcoidosis with outside provider. Patient reports she followed with health informatics advisor Dr. Mendoza but no longer as she moved locations. Patient presents today reporting a supposed diagnosis of RA after lab work drawn by PCP (Kassandra Klein CNP). She reports she saw a local vitamin manager who prescribed her meloxicam. Patient expresses that she was frustrated with this as she is allergic to NSAIDs. Per patient allergy list, patient has itching with ibuprofen and naproxen. Patient reports she has arthritis in her hands, neck, and back. 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 Reports nodules on the DIPs. Reports joint swelling in the fingers and neck. Reports AM joint stiffness for a few minutes. Reports it hurts to get out of bed. Reports pain is constant, and worse with rain and cold. Reports pain is worse with movement. Pain has worsened in the last 6-7 months. Patient reports PCP gave her norco for her pain which was very helpful. She also reports prior prescriptions of Tylenol #3 which was also helpful. Per [facility], PCP prescribed her 5 days of [place] 12/20/21 and 10 day supply of Tylenol #3 on 12/27/21. No further dispenses noted. She additionally is taking gabapentin and flexeril through her PCP. Family history pertinent for niece with MS. She reports her mother has RA at age 81? She denies rash, history of IBD, or history of uveitis or scleritis. Denies chest pain or shortness of breath. Patient-Entered Data PAIN EVALUATION 07/19/2022 1343 Pain Level: 10 Pain Location: -- bilateral hands and neck and spine Description: Tingling;Tightness;Sore hands are swollen PROMIS Assessments PROMIS Assessments 06/16/2019 Physical Health Percentile 4 % Mental Health Percentile 43 % Pain Score 2 RAPID 3 Villagran Activities of Daily Living No Data Dress self? - Get in and out of bed? - Walk outdoors? - Wash and dry body? - Get in and out of car? - RAPID 3 Disease Activity Weighed Score Levels: 0 - 1: Near Remission 1.3 - 2.0: Low Severity 2.3 - 4.0: Moderate Severity 4.3 - 10.0: High Severity No flowsheet data found. Review of Systems Review of Systems CONSTITUTION: Negative for: Fever and Recent weight change HEENT: Negative for: Nosebleeds, Mouth sores, Trouble swallowing and Dry mouth RESPIRATORY: Negative for: Cough, Shortness of breath, Pain with breathing and Coughing up blood GASTROINTESTINAL: Negative for: Melena, Diarrhea, Heartburn and Abdominal pain MUSCULOSKELETAL: Positive for: Arthralgias, Myalgias, Joint swelling and Morning Joint Stiffness Negative for: Muscle weakness NEUROLOGICAL: Negative for: Headaches, Numbness and Memory loss SKIN: Negative for: Rash, Sun Sensitive Rash, Skin changes, Hair loss and Nail changes EYES: Negative for: Eye pain, Eye redness, Eye dryness and visual disturbance CARDIOVASCULAR: Negative for: Chest pain and Leg swelling GENITOURINARY: Negative for: Dysuria, Hematuria and Ulcerations HEMATOLOGIC/LYMPHATIC: Negative for: Swollen glandsAll other reviewed and negative other than HPI. Past Medical History PAST MEDICAL HISTORY Diagnosis Date Depression Diabetes (HCC) Hypertension Sarcoidosis Past Surgical History PAST SURGICAL HISTORY Procedure Laterality Date TONSILLECTOMY HX Family History FAMILY HISTORY Problem Relation Age of Onset Cancer Sister Diabetes Sister Social History Social History Tobacco Use Smoking status: Former Smokeless tobacco: Never Current Medications Current Outpatient Medications on File Prior to Visit Medication Sig empagliflozin (JARDIANCE) 10 mg tablet Take 10 mg by mouth daily with breakfast. ARIPiprazole (ABILIFY) 10 mg tablet Take 10 mg by mouth once daily. losartan (COZAAR) 50 mg tablet Take 50 mg by mouth once daily. cyclobenzaprine (FLEXERIL) 10 mg tablet Take by mouth three times daily. amLODIPine (NORVASC) 10 mg tablet Take 10 mg by mouth once daily. albuterol (PROVENTIL) 2.5 mg /3 mL (0.083 %) nebulizer solution Inhale 2.5 mg as instructed every 6 hours as needed. ferrous sulfate 325 mg (65 mg iron) tablet Take 1 tablet by mouth once daily. LORazepam (ATIVAN) 0.5 mg tab Take 0.5 mg by mouth twice daily as needed. ergocalciferol 50,000 unit capsule (VITAMIN D2, DRISDOL) TAKE 1 CAPSULE BY MOUTH ONE TIME PER WEEK BUDESONIDE/FORMOTEROL FUMARATE (SYMBICORT INHALATION) Inhale as instructed. ALBUTEROL INHALATION Inhale as instructed. atenolol 50 mg tablet Take 50 mg by mouth once daily. Calcium Carbonate-Vitamin D3 180-5,000 mg-unit tab Take by mouth. HYDROcodone-acetaminophen (NORCO) 5-325 mg per tablet Take 1 tablet by mouth twice daily as needed. (Patient not taking: Reported on 07/19/2022) dexamethasone 4 mg tablet Take 4 mg by mouth twice daily with meals. (Patient not taking: Reported on 07/19/2022) No current facility-administered medications on file prior to visit. Labs CBC Latest Ref Rng & Units 05/18/2013 07/19/2022 WBC 3.70 - 11.00 k/uL 12.38(H) 10.14 HEMOGLOBIN 11.5 - 15.5 g/dL 11.9 13.6 HEMATOCRIT 36.0 - 46.0 % 37.3 41.0 PLATELETS 150 - 400 k/uL 317 301 ABS NEUT (ANC) 1.45 - 7.50 k/uL 10.26(H) 5.67 ABS LYMPH 1.00 - 4.00 k/uL 1.18 3.45 CMP Latest Ref Rng & Units 05/18/2013 07/19/2022 SODIUM 136 - 144 mmol/L 143 139 POTASSIUM 3.7 - 5.1 mmol/L 4.0 4.4 CHLORIDE 97 - 105 mmol/L 112(H) 107(H) CO2 22 - 30 mmol/L 17(L) 19(L) GLUCOSE 74 - 99 mg/dL 96 76 BUN 7 - 21 mg/dL 16 14 CREATININE 0.58 - 0.96 mg/dL 0.82 0.87 CALCIUM, TOTAL 8.5 - 10.2 mg/dL 9.3 10.0 AST 13 - 35 U/L 13 22 ALT 7 - 38 U/L 20 23 ALKALINE PHOSPHATASE 34 - 123 U/L 59 84 ESR, WSR Latest Ref Rng & Units 05/18/2013 07/19/2022 WSR 0 - 20 mm/hr 8 10 CRP Latest Ref Rng & Units 05/18/2013 07/19/2022 CRP <0.9 mg/dL 0.1 0.6 LISA Latest Ref Rng & Units 05/18/2013 LISA <49 U/L 12 CK Latest Ref Rng & Units 05/18/2013 CK 30 - 220 U/L 53 RF and CCP Latest Ref Rng & Units 05/18/2013 07/19/2022 RHEUMATOID FACTOR <16 IU/mL 9 <10 CCP ANTIBODY IGG QUALITATIVE Negative - Negative CCP ANTIBODY, IGG <20 Units - <15 Hepatitis Screen Latest Ref Rng & Units 07/19/2022 HEPBCOTOL Negative Negative HEPSABQ Positive Negative(A) HEPCABEIA Negative Negative HBSAG Negative Negative TB Screen 05/18/2013 07/19/2022 TBGINT Result is consistent with current or previous infection with Mycobacterium tuberculosis. The result suggests an infection with either M. tuberculosis complex and/or any of M. kansasii, M. szulgai, M. marinum, and M. flavescens; however, active and latent infections cannot be distinguished by this test. A positive result may not be reliable if obtained within several months of a Tuberculin Skin Test. Clinical and epidemiological correlation is required. TBGRES Positive(A) Positive Antibodies Latest Ref Rng & Units 05/18/2013 ALEXY BY EIA <1.5 OD Ratio 0.3 FINANCIAL PLANNING ANALYST ANTIBODY <1.0 AI <0.2 SSA ANTIBODY <1.0 AI <0.2 SSB ANTIBODY <1.0 AI <0.2 EVELYN-1 ANTIBODY, IGG <1.0 AI <0.2 RIBOSOMAL FINANCIAL PLANNING ANALYST <1.0 AI <0.2 SM ANTIBODY <1.0 AI <0.2 SCLERODERMA AB, IGG <1.0 AI 0.4 CENTROMERE AB <1.0 AI <0.2 CHROMATIN ANTIBODY <1.0 AI <0.2 ANCA Latest Ref Rng & Units 05/18/2013 MYELOPEROXIDASE ANTIBODY (MPO) <1.0 AI Test not performed on samples negative by immunofluorescence. PROTEINASE-3 ANTIBODY <1.0 AI Test not performed on samples negative by immunofluorescence. P-ANCA FLUORESCENCE NEGAT Negative C-ANCA FLUORESCENCE NEGAT Negative PANCA <1.0 AI Test not performed on samples negative by immunofluorescence. CANCA <1.0 AI Test not performed on samples negative by immunofluorescence. Imaging Last XR Hand/Finger - Impression Only XR HAND GENERAL 3V PA/LAT/OBL BILATERAL Exam End: 07/19/2022 4:24 PM (Final result) Impression: IMPRESSION: No radiographic findings of inflammatory arthropathy. Cloth Covered Helmet Puller: RONA ... Last MRI Hand - Impression Only No resulted procedures found. Last XR Chest - Impression Only XR CHEST 2V FRONTAL/LAT Exam End: 07/19/2022 4:24 PM (Final result) Impression: IMPRESSION: No acute disease identified in the lungs or mediastinum. Little interval change since the exam dated 05/18/2013. ... Last XR Cervical Spine - Impression Only XR CERV OTHER 4V AP/LAT/OBL Exam End: 07/19/2022 4:24 PM (Final result) Impression: IMPRESSION: Mild degenerative changes. Cloth Covered Helmet Puller: RONA Transcribe Date/Time: Jul 19 2022 5:10P... Health Maintenance HEPATITIS B(1 of 3 - 3-dose series) Never done HIV SCREENING Never done DTAP,TDAP,TD(1 - Tdap) Never done PAP TESTING Never done HPV TESTING Never done MAMMOGRAM Never done LIPID SCREEN Never done COLORECTAL CANCER SCREENING Never done SHINGRIX VACCINE(1 of 2) Never done COVID-19 VACCINE(3 - Booster for Moderna series) due on 04/10/2021 INFLUENZA(1) due on 02/28/2022 DEPRESSION ASSESSMENT Never done DIABETES SCREEN due on 07/19/2025 HEPATITIS C SCREENING Completed Physical Exam GENERAL APPEARANCE: Well groomed. Alert and oriented x 3. In no distress. VITAL SIGNS: BP 133/77 Pulse 67 Temp (Src) 97.5 (Temporal) Ht 5' 7 (1.70m) Wt 190 lb (86.2kg) BMI 29.75 kg/(m^2). Physical Exam Constitutional: General: She is not in acute distress. Appearance: Normal appearance. She is normal weight. She is not ill-appearing, toxic-appearing or diaphoretic. HENT: Head: Normocephalic and atraumatic. Right Ear: External ear normal. Left Ear: External ear normal. Nose: Nose normal. Mouth/Throat: Mouth: Mucous membranes are moist. Pharynx: Oropharynx is clear. No oropharyngeal exudate or posterior oropharyngeal erythema. Eyes: General: No scleral icterus. Extraocular Movements: Extraocular movements intact. Conjunctiva/sclera: Conjunctivae normal. Pupils: Pupils are equal, round, and reactive to light. Cardiovascular: Rate and Rhythm: Normal rate and regular rhythm. Pulses: Normal pulses. Heart sounds: Normal heart sounds. Pulmonary: Effort: Pulmonary effort is normal. No respiratory distress. Breath sounds: Normal breath sounds. No stridor. No wheezing, rhonchi or rales. Abdominal: Palpations: Abdomen is soft. Tenderness: There is no abdominal tenderness. There is no guarding. Skin: General: Skin is warm and dry. Coloration: Skin is not jaundiced. Findings: No bruising, erythema, lesion or rash. Neurological: General: No focal deficit present. Mental Status: She is alert and oriented to person, place, and time. Motor: No weakness. Gait: Gait normal. Psychiatric: Mood and Affect: Mood normal. Behavior: Behavior normal. Thought Content: Thought content normal. Judgment: Judgment normal. Musculoskeletal Exam Soft tissue tender points: None Motor exam: Normal 5+/5+ muscle strength. Normal bulk and tone. Cervical spine: No visible abnormalities. Full ROM. Neck supple. No rigidity. No tenderness to palpation. Thoracic spine: No visible abnormalities. No tenderness to palpation. Lumbar spine: No visible abnormalities. Full ROM. No tenderness to palpation. Upper extremities: Normal inspection of joints. Shoulder, elbows, wrists, and hand joints without synovitis, swelling, tenderness, deformity, or lack of ROM. Lower extremities: Normal inspection of joints. Hips, knees, ankles, and feet without synovitis, swelling, tenderness, deformity, or lack of ROM. Impression Diagnoses: (D86.9) Sarcoidosis (primary encounter diagnosis) (M25.50) Polyarthralgia (R89.9) Abnormal laboratory test London Velasquez is a 57 year old female who presents today for evaluation of joint pain. Patient was seen at [facility] back in 2019 where she had reported she had sarcoidosis since 2015. It was recommended she establish with the sarcoid clinic. Patient was lost to follow up. Per care everywhere, it appears patient was obtaining care for sarcoidosis with outside provider. Patient reports she followed with health informatics advisor Dr. Mendoza but no longer as she moved locations. Patient presents today reporting a diagnosis of RA after lab work drawn by PCP (Kassandra Klein, TAYO). She reports she saw a local vitamin manager who prescribed her meloxicam. Patient presents with mechanical sounding joint pain. She endorses joint swelling, but none appreciated on exam. Reports mother has RA, but unclear if RA vs OA based on patient description. Will complete rheumatologic workup with serologies and imaging. If patient was diagnosed with RA after positive RF, this picture is complicated by patient's history of sarcoidosis as value could represent a false positive. Additionally, MSK symptoms are not uncommon in sarcoidosis. Given her history, recommend patient establish with physician for further management. In the meantime, recommend patient increase gabapentin dose to gabapentin 600 mg twice daily for four days. If still painful, she may increase to gabapentin 900 mg twice daily. Patient advised that medication can cause drowsiness and to avoid operating a vehicle when taking this medication. Plan Orders this visit: Office Visit on 07/19/22 XR CERV OTHER 4V AP/LAT/OBL XR LUMBAR GENERAL 3V AP/LAT/L5-S1 XR SACROILIAC JOINTS 2V AP PELVIS/FERGUESON XR SHOULDER LIMITED 2V AP/TRUE AP LEFT XR SHOULDER [id number] AP/TRUE AP RIGHT XR HAND GENERAL 3V PA/LAT/OBL BILATERAL XR WRIST GENERAL 3V PA/LAT/OBL BILATERAL XR FOOT GENERAL 3V AP/LAT/OBL BILATERAL XR ANKLE GENERAL 3V AP/LAT/OBL RIGHT XR ANKLE GENERAL 3V AP/LAT/OBL LEFT XR CHEST 2V FRONTAL/LAT CBC + DIFF COMP METABOLIC PANEL BLOOD TB SCREEN HEP REMOTE PANEL BL SED RATE WESTERGREN C-REACTIVE PROTEIN (CRP) RHEUMATOID FACTOR BL CCP ANTIBODY IGG URINALYSIS WITH MICROSCOPIC, REFLEX CULTURE PROTEIN CREATININE RATIO gabapentin (NEURONTIN) 300 mg capsule *Discontinued* empagliflozin (JARDIANCE) 10 mg tablet ARIPiprazole (ABILIFY) 10 mg tablet losartan (COZAAR) 50 mg tablet cyclobenzaprine (FLEXERIL) 10 mg tablet gabapentin (NEURONTIN) 300 mg capsule (D86.9) Sarcoidosis (primary encounter diagnosis) (M25.50) Polyarthralgia (R89.9) Abnormal laboratory test Lab work and Imaging Increase gabapentin dose to gabapentin 600 mg twice daily for four days. If still painful, she may increase to gabapentin 900 mg twice daily. Patient advised that medication can cause drowsiness and to avoid operating a vehicle when taking this medication. Return in about 3 weeks (around 08/09/2022). I spent a total of 60 minutes on the date of the service which included preparing to see the patient, [id number] patient care, completing clinical documentation, obtaining and/or reviewing separately obtained history, performing a medically appropriate examination, counseling and educating the patient/family/caregiver, and ordering medications, tests, or procedures. Naa Bah PA-C [facility] Date: July 19, 2022 Time: 10:00 AM documented in this encounter [facility] 08-19-2021 Note Chief Complaint consultation for bleeding hemorrhoid HPI Staff 56 year old female presents on consultation from Kassandra Klein ASSISTANT PROFESSOR NURSE EDUCATION for bleeding hemorrhoids x several months. Reports multiple hemorrhoids that bleed with and without bowel movement. Reports these are painful. Prescribed Analpram TID, patient stopped using this as it was not helpful. Last colonoscopy 09/13/14 with hyperplastic polyp. Exam under anesthesia completed 08/21/18 for perianal pain- normal. History of Present Illness 56 yo female with h/o htn, sarcoidosis, ELENA, fibromyalgia, referred for bleeding hemorrhoids; present for several months, also pain, bleeding even without bms; patient with h/o partial internal sphincterotomy in 2016 and 2016 for fissures, persistent pain; last colonoscopy 08/2014 with hyperplastic polyp; had exam under anesthesia in 2019 for pain, wnl, referred to [facility] colorectal surgery; patient reports pain improved; has upcoming appointment with GI for dysphagia; had recent neck ct last week that revealed mass; to be evaluated by ENT; no change in bms or straining for bms; on ibuprofen prn. Review of Systems PHQ Score Initial Depression Screen Score: 0 ROS - Provider Constitutional: no fever, no sweats, no weight loss. Eyes: no glasses, no blurred vision, no visual loss. ENMT: no dentures, no hoarseness, no swallowing difficulties, no hearing loss, no ear infection(s), no nose bleeds. Cardiovascular: normal blood pressure, no chest pain, regular heartbeat, no heart murmur. Respiratory: no shortness of breath, no cough, no asthma, no wheezing. Gastrointestinal: no nausea, no vomiting, no diarrhea, no constipation, no blood in stool, no change in bowel habits, no abdominal pain, no hepatitis. Genitourinary: no kidney stones, no urine infection, no dysuria. Musculoskeletal: no pain, no weakness. Skin: no changing moles, no rash, no skin lumps. Neurologic: no seizures, no epilepsy, no headache. Psychiatric: no emotional or psychiatric problem. Heme/Lymph: no bleeding problems, no anemia, no blood clots, no transfusions. Allergy/Immunologic: no swollen lymph nodes/glands, no IV drug abuse. Other: Additional ROS info: Except as noted in the above Review of Systems and in the History of Present Illness, all other systems have been reviewed and are negative or noncontributory. Physical Exam Vitals & Measurements T: 36.1 ?C(Temporal Artery) HR: 98(Peripheral) RR: 16 BP: 153/91 HT: 170 cm HT: 170.0 cm WT: 91.6 kg WT: 91.6 kg BMI: 31.7 HEENT: normal conjunctiva, sclera clear, no scleral icterus, EOM intact, PERRLA, oral mucosa moist without lesions. Neck: trachea midline, no mass, symmetric, no thyromegaly or nodules, no adenopathy rectal: no fissures or external hemorrhoids, small anal skin tag, no inflammation, no masses or blood. Lymphatic: no cervical adenopathy, Musculoskeletal: normal gait, digits and nails without infection, nodes, cyanosis, clubbing. Skin: no rashes, no lesions, no ulcers, no subcutaneous nodules, induration. Psychiatric/Neuro: oriented to time, place, person, judgement normal, affect appropriate for age, insight intact, no focal deficits. Tests:, review of old records completed, Assessment/Plan 1. Rectal bleeding (K62.5: Hemorrhage of anus and rectum) no evidence of bleeding or fissure; recommend repeat colonoscopy, patient to discuss with GI at upcoming appointment; call with problems/questions. 2. Rectal pain (K62.89: Other specified diseases of anus and rectum) see # 1; recommend f/u at [facility] colorectal surgery as previously recommended by Dr Melendez. Follow-up No qualifying data available Problem List/Past Medical History Ongoing Anxiety Arthritis of spine Bipolar disorder Bleeding external hemorrhoids BMI 31.0-31.9,adult Cervical disc disease Chronic pain syndrome Dubois's disease Depression Diabetes Esophageal spasm Fibromyalgia Glaucoma History of cocaine abuse History of esophageal stricture Hypertension Hypertriglyceridemia Leukocytosis Movement disorder Oropharyngeal dysphagia ELENA (obstructive sleep apnea) Rectal bleeding Rectal pain Sarcoidosis Seasonal allergic rhinitis Vitamin D deficiency White matter disease Historical DM - Diabetes mellitus HTN - Hypertension Sarcoidosis Seizure Procedure/Surgical History PERIRECTAL ABSCESS I & D (08/21/2018), Lateral internal sphincterotomy (07/09/2016), Exam under anesthesia, Lateral internal sphincterotomy. (04/26/2016), Biopsy of kidney using fluoroscopic guidance, Biopsy of lung, Cholecystectomy, Colonoscopy, Dilation of esophagus, EGD - Esophagogastroduodenoscopy, Fine needle biopsy of kidney, History of ankle surgery, tonsillectomy and adenoids, Tubal ligation. Medications albuterol HFA 90 mcg/inh MDI, 2 puff(s), Inhalation, q4hr, PRN amitriptyline 50 mg Tab, 50 mg= 1 tab(s), Oral, Once a day (at bedtime) amLODIPine 10 mg Tab, 10 mg= 1 tab(s), Oral, Daily Analpram-HC 1%-1% rectal cream, 1 (more content not included)... [facility] Comment on above: Result Comment: Elec tronically Signed By: FIONA RUDD, Lenin Oconnor.belle\Date and Time Signed: 08/19/21 19:34 EST 03-09-2021 Note PROCEDURE: XR ANKLE LT 2V HISTORY: Ankle pain COMPARISON: XR ankle left 01/19/2021 FINDINGS: BONES:Single intraoperative spot fluoroscopic view of the left ankle in the lateral projection, suspected to be under stress at the time of imaging. No appreciable anterior or posterior displacement of the tibial plafond and articular dome. IMPRESSION: 1. No visible subluxation. Electronically authenticated by: LOVE MENDENHALL Date: 2021-03-09 21:39 [facility] Evaluation note No assessment inform ation available [facility] Work Phone: Evaluation note Diagnosis Sarcoidosis- Primary Polyarthralgia Pain in joint, multiple sites Abnormal laboratory test Other abnormal clinical finding [facility] Positive TB test- Primary Nonspecific reaction to tuberculin skin test without active tuberculosis Sarcoidosis documented in this encounter [facility]* Diagnosis Onset Date Resolution Status History of colon polyps acut e [facility] Work Phone: Evaluation note* Diagnosis Primary osteoarthritis of left knee- Primary Primary localized osteoarthrosis, lower leg Primary osteoarthritis of both knees Primary localized osteoarthrosis, lower leg Effusion, left knee Primary osteoarthritis of left knee Primary localized osteoarthrosis, lower leg [facility] Primary osteoarthritis of left knee Primary localized osteoarthrosis, lower leg [facility] Diagnosis COVID-19- Primary Pneumonia due to infectious organism, unspecified laterality, unspecified part of lung documented in this encounter [facility] Work Phone: Hospital Discharge instructions Additional Instructions Take the prednisone twice a day for 5 days Carefully watch your diet and blood sugars the prednisone can elevate your sugar Tried applying the diclofenac gel to your hands 4 times a day if this causes a rest stop using let your doctor know Follow-up with your doctor as scheduled Return to the ER for high fever worsening pain or any [facility] Work [facility]: Hospital Discharge instructions Additional Instructions No evidence of anything abnormal that would cause pain was seen on your CAT scan. Your blood counts are okay. Please follow-up with your doctor. You may need to see gastroenterology for colonoscopy. I am going to prescribe you some medicine for pain for couple of days. We are happy to see you if there are any significant problems or concerns.[facility] Work Phone: Reason for referral (narrative)* Diagnostic Procedure Only (Routine) - Closed Specialty Diagnoses / Procedures Referred By Contac t Referred To Contact XR IMAGING Diagnoses Sarcoidosis Polyarthralgia Abnormal laboratory test Procedures XR ANKLE GENERAL 3V AP/LAT/OBL LEFT RADEX ANKLE COMPLETE MINIMUM 3 VIEWS Naa Bah PA-C [address] [place] [address] Xr Imaging Referral ID Status Reason Start Date Expiration Date V isits Requested Visits Authorized [id number] Closed Auto-Generate d Referral 07/19/2022 08/18/2023 1 1 * Diagnostic Procedure Only (Routine) - Closed Specialty Diagnoses / Procedures Referred By Contac t Referred To Contact XR IMAGING Diagnoses Sarcoidosis Polyarthralgia Abnormal laboratory test Procedures XR ANKLE GENERAL 3V AP/LAT/OBL RIGHT RADEX ANKLE COMPLETE MINIMUM 3 VIEWS Naa Bah PA-C [address] [place] [address] Xr Imaging Referral ID Status Reason Start Date Expiration Date V isits Requested Visits Authorized [id number] Closed Auto-Generate d Referral 07/19/2022 08/18/2023 1 1 * Diagnostic Procedure Only (Routine) - Closed Specialty Diagnoses / Procedures Referred By Contac t Referred To Contact XR IMAGING Diagnoses Sarcoidosis Polyarthralgia Abnormal laboratory test Procedures XR FOOT GENERAL 3V AP/LAT/OBL BILATERAL RADEX FOOT COMPLETE MINIMUM 3 VIEWS Naa Bah PA-C [address] [place] [address] Xr Imaging Referral ID Status Reason Start Date Expiration Date V isits Requested Visits Authorized [id number] Closed Auto-Generate d Referral 07/19/2022 08/18/2023 1 1 * Diagnostic Procedure Only (Routine) - Closed Specialty Diagnoses / Procedures Referred By Contac t Referred To Contact XR IMAGING Diagnoses Sarcoidosis Polyarthralgia Abnormal laboratory test Procedures XR WRIST GENERAL 3V PA/LAT/OBL BILATERAL RADEX WRIST COMPLETE MINIMUM 3 VIEWS Naa Bah PA-C [address] [place] [address] Xr Imaging Referral ID Status Reason Start Date Expiration Date V isits Requested Visits Authorized [id number] Closed Auto-Generate d Referral 07/19/2022 08/18/2023 1 1 * Diagnostic Procedure Only (Routine) - Closed Specialty Diagnoses / Procedures Referred By Contac t Referred To Contact XR IMAGING Diagnoses Sarcoidosis Polyarthralgia Abnormal laboratory test Procedures XR HAND GENERAL 3V PA/LAT/OBL BILATERAL RADEX HAND MINIMUM 3 VIEWS Naa Bah PA-C [address] [place] [address] Xr Imaging Referral ID Status Reason Start Date Expiration Date V isits Requested Visits Authorized [id number] Closed Auto-Generate d Referral 07/19/2022 08/18/2023 1 1 * Diagnostic Procedure Only (Routine) - Closed Specialty Diagnoses / Procedures Referred By Contac t Referred To Contact XR IMAGING Diagnoses Sarcoidosis Polyarthralgia Abnormal laboratory test Procedures XR SHOULDER [id number] AP/TRUE AP RIGHT RADEX SHOULDER COMPLETE MINIMUM 2 VIEWS Naa Bah PA-C [address] [place] [address] Xr Imaging Referral ID Status Reason Start Date Expiration Date V isits Requested Visits Authorized [id number] Closed Auto-Generate d Referral 07/19/2022 08/18/2023 1 1 * Diagnostic Procedure Only (Routine) - Closed Specialty Diagnoses / Procedures Referred By Contac t Referred To Contact XR IMAGING Diagnoses Sarcoidosis Polyarthralgia Abnormal laboratory test Procedures XR SHOULDER LIMITED 2V AP/TRUE AP LEFT RADEX SHOULDER COMPLETE MINIMUM 2 VIEWS Naa Bah PA-C [address] [place] [address] Xr Imaging Referral ID Status Reason Start Date Expiration Date V isits Requested Visits Authorized [id number] Closed Auto-Generate d Referral 07/19/2022 08/18/2023 1 1 * Diagnostic Procedure Only (Routine) - Closed Specialty Diagnoses / Procedures Referred By Contac t Referred To Contact XR IMAGING Diagnoses Sarcoidosis Polyarthralgia Abnormal laboratory test Procedures XR SACROILIAC JOINTS 2V AP PELVIS/FERGUESON RADIOLOGIC EXAMINATION SACROILIAC JNTS <3 VIEWS Naa Bah PA-C [address] [place] [address] Xr Imaging Referral ID Status Reason Start Date Expiration Date V isits Requested Visits Authorized [id number] Closed Auto-Generate d Referral 07/19/2022 08/18/2023 1 1 * Diagnostic Procedure Only (Routine) - Closed Specialty Diagnoses / Procedures Referred By Contac t Referred To Contact XR IMAGING Diagnoses Sarcoidosis Polyarthralgia Abnormal laboratory test Procedures XR LUMBAR GENERAL 3V AP/LAT/L5-S1 RADEX SPINE LUMBOSACRAL 2/3 VIEWS Naa Bah PA-C [address] [place] [address] Xr Imaging Referral ID Status Reason Start Date Expiration Date V isits Requested Visits Authorized [id number] Closed Auto-Generate d Referral 07/19/2022 08/18/2023 1 1 * Diagnostic Procedure Only (Routine) - Closed Specialty Diagnoses / Procedures Referred By Contac t Referred To Contact XR IMAGING Diagnoses Sarcoidosis Polyarthralgia Abnormal laboratory test Procedures XR CERV OTHER 4V AP/LAT/OBL RADEX SPINE CERVICAL 4 OR 5 VIEWS Naa Bah PA-C [address] [place] [address] Xr Imaging Referral ID Status Reason Start Date Expiration Date V isits Requested Visits Authorized [id number] Closed Auto-Generate d Referral 07/19/2022 08/18/2023 1 1 [facility] for referral (narrative)* Diagnostic Procedure Only (Routine) - Closed Specialty Diagnoses / Procedures Referred By Contac t Referred To Contact XR IMAGING Diagnoses Primary osteoarthritis of left knee Procedures XR KNEE GENERAL 4V AP BOTH/PA BOTH/LAT/MERC LEFT RADIOLOGIC EXAM KNEE COMPLETE 4/MORE VIEWS Pam Wang PA-C [address] [place] [address] [place] [address] Referral ID Status Reason Start Date Expiration Date V isits Requested Visits Authorized [id number] Closed Auto-Generate d Referral 05/06/2024 06/05/2025 1 1 [facility] for visit Narrative* Diagnostic Procedure Only (Routine) - Closed Specialty Diagnoses / Procedures Referred By Contac t Referred To Contact XR IMAGING Diagnoses Primary osteoarthritis of left knee Procedures XR KNEE GENERAL 4V AP BOTH/PA BOTH/LAT/MERC LEFT RADIOLOGIC EXAM KNEE COMPLETE 4/MORE VIEWS Pam Wang PA-C [address] [place] [address] [place] [address] Referral ID Status Reason Start Date Expiration Date V isits Requested Visits Authorized [id number] Closed Auto-Generate d Referral 05/06/2024 06/05/2025 1 1 [facility] Summary Purpose Family History No Family History Records Found Relationship Condition Age at Onset Recorded Date/T db sister Malignant neoplasm of lung Unknown Relationship Condition Age at Onset Recorded Date/T db sister Malignant neoplasm of lung Unknown father Dementia Unknown Unknown Not Specified Hypertension Unknown Diabetes mellitus Unknown sister Diabetes mellitus Unknown Hypertension Unknown Malignant neoplasm Unknown Relationship Condition Age at Onset Recorded Date/T db sister Malignant neoplasm of lung Unknown father Dementia Unknown Unknown mother Hypertension Unknown Diabetes mellitus Unknown sister Diabetes mellitus Unknown Hypertension Unknown Malignant neoplasm Unknown Advance Directives No Advanced Directives Records Found Advance Directive Response Recorded Date/ Time Advance Directives No February 10:45am Advance Directive Response Recorded Date/ Time Advance Directives No February 11:45am Chief Complaint and Reason for Visit Chief Complaint R05 cp E55.9 R53.1 eye irritation M25.552 seizures ELEVATED BLOOD SUGAR HIGH BLOOD SUGAR Chief Complaint swollen legs edema essential htn s93.402a bi lat hand pain Chief Complaint Degenerative disc di sease, lumbar Diabetes mellitu Chief Complaint E08.8 E55.9 M51.36 E 61.1 s39.012a Chief Complaint E08.8 E55.9 M51.36 E 61.1 s39.012a Bronchitis Chief Complaint E08.8 E55.9 M51.36 E 61.1 s39.012a Bronchitis J40 Cervical cancer screening Chief Complaint Z12.4 Screening Diabetes mellitus due to underlying condition with Reason for Visit History of colon bebo yps Chief Complaint E08.8 M24.272 R59.0 Chief Complaint R19.09 r10.33 Chief Complaint Diabetes mellitus du e to underlying condition with Chief Complaint E08.8 I75.022 Abd pain Chief Complaint E08.8 I75.022 Abd pain abd pain Assessments No Assessments Information Available Reason for Referral Specialty Diagnoses / Procedures Referred By Zaina dodson Referred To Contact [facility] Diagnoses Primary osteoarthritis of left knee Procedures CONSULT TO PHYSICAL THERAPY PHYSICAL THERAPY EVALUATION HIGH COMPLEX 45 MINS Pam Wang PA-C [address] [place] [address] [facility] [address] [place] [address] Referral ID Status Reason Start Date Expiration Date Visits Requested Visits Authorized [id number] Authorized Auto-Generat ed Referral 06/30/2023 06/29/2024 30 30 Specialty Diagnoses / Procedures Referred By Zaian dodson Referred To Contact Diagnoses Primary osteoarthritis of left knee Procedures OA BRACE - [employer] HANDYMAN - [id number] Pam Wang PA-C [address] [place] [address] Referral ID Status Reason Start Date Expiration Date Visits Requested Visits Authorized [id number] New Request PCP Requested Referral 4 08/08/2024 1 1 Specialty Diagnoses / Procedures Referred By Zaina dodson Referred To Contact XR IMAGING Diagnoses Primary osteoarthritis of left knee Procedures XR KNEE GENERAL 4V AP BOTH/PA BOTH/LAT/MERC LEFT RADIOLOGIC EXAM KNEE COMPLETE 4/MORE VIEWS Pam Wang, KEITH [address] [place] [address] [place] [address] Referral ID Status Reason Start Date Expiration Date V isits Requested Visits Authorized [id number] Closed Auto-Generate d Referral 05/06/2024 06/05/2025 1 1 Specialty Diagnoses / Procedures Referred By Contac t Referred To Contact Diagnoses Pneumonia due to infectious organism, unspecified laterality, unspecified part of lung Harry Welch MD [address] [facility] [place] [address] Referral ID Status Reason Start Date Expiration Date V isits Requested Visits Authorized [id number] Pending Review 1 1 Additional Source Comments INFORMATION SOURCE (unrecogn ized section and content) DATE CREATED AUTHOR 12/23/2017 [facility] DATE CREATED AUTHOR AUTHOR'S ORGANIZ ATION 06/16/2021 [facility] DATE CREATED AUTHOR AUTHOR'S ORGANIZ ATION 09/19/2021 [facility] DATE CREATED AUTHOR AUTHOR'S ORGANIZ ATION 01/31/2024 [facility] DATE CREATED AUTHOR AUTHOR'S ORGANIZ ATION 03/21/2024 [facility] DATE CREATED AUTHOR AUTHOR'S ORGANIZ ATION 03/26/2024 [facility] DATE CREATED AUTHOR AUTHOR'S ORGANIZ ATION 03/28/2024 [facility] DATE CREATED AUTHOR AUTHOR'S ORGANIZ ATION 05/13/2024 [facility] DATE CREATED AUTHOR AUTHOR'S ORGANIZ ATION 06/30/2024 [facility] Care Teams (unrecognized sec tion and content) Team Status: Inactive Member Role Status Dates ANYA Magallon-BC Emergency Provider Active Services [facility] Primary Care Provider Active Team Status: Inactive Member Role Status Dates MILENA CarvajalC Attending Provider Active Services [facility] Primary Care Provider Ac tive Team Status: Inactive Member Role Status Dates Dwight Irwin DO Emergency Provider Active Services [facility] Primary Care Provider Active Team Status: Active Member Role Status Dates Services [facility] Primary Care Provider Active Team Status: Inactive Member Role Status Dates Services [facility] Primary Care Provider Active Kassandra Klein ASSISTANT PROFESSOR NURSE EDUCATION-C Attending Provider Active Maintenance Clerk Relationship Specialty Start Date End Date Chintan Jackman [address] [facility] [address] [place] [id number] PCP - General Family Medicine 05/18/13 Kassandra Klein [address] [place] [address] Referring Family Medicine 05/17/19 Maintenance Clerk Relationship Specialty Start Date End Date Soham BeTracyjayden Mary [address] [facility] [address] [place] [id number] PCP - General Family Medicine 05/18/13 Kassandra Klein [address] [place] [address] Referring Family Medicine 05/17/19 Team Status: Inactive Member Role Status Dates Kassandra Klein ASSISTANT PROFESSOR NURSE EDUCATION-C Attending Provider Active Team Status: Inactive Member Role Status Dates [facility] Primary Care Provider Active Huey Bliss MD Attending Provider Active Team Status: Active Member Role Status Dates [facility] Primary Care Provider Ac tive Team Status: Inactive Member Role Status Dates [facility] Primary Care Provider Ac tive Start: September 11, 2023 End: September 11, 2023 Kassandra Klein ASSISTANT PROFESSOR NURSE EDUCATION-C Attending Provider Active Start: September 11, 2023 End: September 11, 2023 Team Status: Inactive Member Role Status Dates Kassandra Klein , ASSISTANT PROFESSOR NURSE EDUCATION-C Attending Provider Active Start: December 16, 2023 End: December 16, 2023 Team Status: Active Member Role Status Dates Kassandra Klein ASSISTANT PROFESSOR NURSE EDUCATION-C Primary Care Provider Active Team Status: Inactive Member Role Status Dates Kassandra Klein , ASSISTANT PROFESSOR NURSE EDUCATION-C Attending Provider Active Start: December 16, 2023 End: December 16, 2023 Services [facility] Primary Care Provider Ac tive Start: December 16, 2023 End: December 16, 2023 Team Status: Inactive Member Role Status Dates Anders Umana PA-C Emergency Provider Active Start: December 22, 2023 End: December 22, 2023 JOMAR Carvajal Primary Care Provider Active Start: December 22, 2023 End: December 22, 2023 Team Status: Inactive Member Role Status Dates Kassandra Klein NP-Enrique Primary Care Provider Active Start: January 29, 2024 End: January 29, 2024 Rishi Abel Jr, MD Emergency Provider Active Start: January 29, 2024 End: January 29, 2024 Maintenance Clerk Relationship Specialty Start Date End Date Kassandra Klein NP [address] [place] [address] PCP - General Family Medicine 05/10/24 Kassandra Klein NP [address] [place] [address] Referring Family Medicine 05/17/19 Maintenance Clerk Relationship Specialty Start Date End Date Kassandra Klein NP [address] [place] [address] PCP - General Family Medicine 05/10/24 Kassandra Klein NP [address] [place] [address] Referring Family Medicine 05/17/19 Maintenance Clerk Relationship Specialty Start Date End Date Kassandra Klein NP [address] [place] [address] PCP - General Family Medicine 05/10/24 Kassandra Klein ASSISTANT PROFESSOR NURSE EDUCATION [address] [place] [address] Referring Family Medicine 05/17/19 Maintenance Clerk Relationship Specialty Start Date End Date Generic Provider, No Assigned Pcp, [place] [address] PCP - General Loan Funder 03/23/24 Goals (unrecognized section and content) Goals may be documented in a n alternate sectionGoals may be documented in an alternate sectionGoals may be documented in an alternate sectionGoals may be documented in an alternate sectionGoals may be documented in an alternate sectionGoals may be documented in an alternate sectionGoals may be documented in an alternate sectionGoals may be documented in an alternate sectionGoals may be documented in an alternate sectionGoals may be documented in an alternate sectionGoals may be documented in an alternate sectionGoals may be documented in an alternate section Source Comments (unrecognize d section and content) In the event this informatio n is protected by the Federal Confidentiality of Alcohol and Drug Abuse Patient Records regulations: The Federal rules restrict any use of the information to criminally investigate or prosecute any alcohol or drug abuse patient.[facility] the event this information is protected by the Federal Confidentiality of Alcohol and Drug Abuse Patient Records regulations: The Federal rules restrict any use of the information to criminally investigate or prosecute any alcohol or drug abuse patient.[facility] Hospital[facility] the event this information is protected by the Federal Confidentiality of Alcohol and Drug Abuse Patient Records regulations: The Federal rules restrict any use of the information to criminally investigate or prosecute any alcohol or drug abuse patient.[facility] the event this information is protected by the Federal Confidentiality of Alcohol and Drug Abuse Patient Records regulations: The Federal rules restrict any use of the information to criminally investigate or prosecute any alcohol or drug abuse patient.[facility] the event this information is protected by the Federal Confidentiality of Alcohol and Drug Abuse Patient Records regulations: The Federal rules restrict any use of the information to criminally investigate or prosecute any alcohol or drug abuse patient.[facility] Reason for Visit (unrecogniz ed section and content) Reason Comments Joint Pain Reason Comments Radiology XR Reason Comments New Knee Pain Reason Comments Wheezing Pt sts she hears whe ezing when she breaths, Pt sts she has a history of COPD and is requesting a treatment. Pt also sts she thinks she is dehydrated. Pt does do albuterol treatments at home. Scheduled Active and Recently Administ ered Medications (unrecognized section and content) Medication Order 2024 03/23/2024 03/24/2024 azithromycin 500 mg in dextrose 5% 250 mL IV (COMPLETED) 500 mg, intravenous, at 250 mL/hr, Administer over 60 Minutes, Once, On Fri03/23/24 at 1845, For 1 dose, Suspected Indication (Select all that apply): Pneumonia, Type of Therapy: Empiric, Indications: Pneumonia 2257 (New Bag - Provider: Vicky Zurita RN)2357 (Stopped - Provider: Vicky Zurita RN) benzonatate (Tessalon) capsule 100 mg (COMPLETED) 100 mg, oral, Once, On Fri03/23/24 at 1755, For 1 dose, Do not crush or chew. 1841 (Given - Provider: Lexi Mcbride RN) cefTRIAXone (Rocephin) 2 g in dextrose (iso) IV 50 mL (COMPLETED) 2 g, intravenous, at 100 mL/hr, Administer over 30 Minutes, Once, On Fri03/23/24 at 1845, For 1 dose, premix bag, Suspected Indication (Select all that apply): Pneumonia, Type of Therapy: Empiric, Indications: Pneumonia 2208 (New Bag - Provider: Anil Ferrari RN - Comment: No iV)2238 (Stopped - Provider: Vicky Zurita RN) fentaNYL PF (Sublimaze) injection 50 mcg (COMPLETED) 50 mcg, intravenous, Once, On Fri03/23/24 at 2200, For 1 dose 2207 (Given - Provider: Anil Ferrari RN) iohexol (OMNIPaque) 350 mg iodine/mL solution 75 mL (COMPLETED) 75 mL, intravenous, Once in imaging, Starting on Fri03/23/24 at 2228, For 1 dose 2228 (Given - Provider: Criss Butterfield) methylPREDNISolone sod succinate (SOLU-Medrol) 40 mg/mL injection 40 mg (COMPLETED) 40 mg, intravenous, Once, On Fri03/23/24 at 2350, For 1 dose 0031 (Given - Provid er: Vicky Zurita RN) sodium chloride 0.9 % bolus 1,000 mL (COMPLETED) 1,000 mL, intravenous, at 999 mL/hr, Administer over 1 Hours, Once, On Fri03/23/24 at 1755, For 1 dose 1838 (New Bag - Provider: Lexi Mcbride RN)193 (Stopped - Provider: Vicky Zurita RN) FOR RECORDS PERTAINING TO PATIENTS WHO ARE OR HAVE BEEN ENROLLED IN A CHEMICAL DEPENDENCY/SUBSTANCEABUSE PROGRAM, SOME INFORMATION MAY BE OMITTED. This clinical summary was aggregated from multiple sources. Caution should be exercised in using it in the provision of clinical care. This summary normalizes information from multiple sources, and as a consequence, information in this document may materially change the coding, format and clinical context of patient data. In addition, data may be omitted in some cases. CLINICAL DECISIONS SHOULD BE BASED ON THE PRIMARY CLINICAL RECORDS. [facility]. provides no warranty or guarantee of the accuracy or completeness of information in this document.
--- NOTE | 2024-07-29 07:17 | XR_ITS ---
The [address] [address] Patient Name: LONDON BEY MRN: [id number] date: 1965 Sex: F Assigned Patient Location: ER Current Patient Location: ER Accession/Order Number: [id number] Exam Date: 07/29/2024 07:30 Report Date: 07/29/2024 07:44 At the request of: ALBERTO WOLF Procedure: XR chest 1V EXAMINATION: XR chest 1V HISTORY: sob COMPARISON: No relevant comparison available. FINDINGS: LUNGS: Mild stranding within left midlung and slight haziness within lateral left lung base. VASCULATURE: No increased pulmonary vasculature. PLEURA: No pneumothorax, effusion, or pleural thickening. CARDIAC: No cardiomegaly or cardiac silhouette abnormality. MEDIASTINUM: No visible mass or adenopathy. BONES: No fracture or visible bone lesion. OTHER: Negative. XR/XR chest 1V IMPRESSION: 1. Trace amount of left basilar infiltrates versus atelectasis. Electronically authenticated by: LOVE MENDENHALL Date: 07/29/2024 07:44
--- NOTE | 2024-07-29 07:17 | ECG_ITS ---
The [facility] Test Date: 2024-07-29 Pat Name: LONDON BEY Department: Room: - Gender: Female Manager [employer]: : 1965 Requested By: Order Number: [id number] Reading MD: CATHERINE FARRAR Measurements Intervals [place] Rate: 79 P: 62 [place]: 178 QRS: 17 QRSD: 94 T: 71 QT: 384 QTc: 418 Interpretive Statements 1100 Sinus rhythm 1969 with occasional ectopic premature complexes 9140 abnormal rhythm ECG Compared to ECG 02/28/2021 09:00:06 Left-axis deviation no longer present Electronically Signed On 08-02-2024 20:39:16 EST by CATHERINE FARRAR
[2024-07-29] MEDS: ONDANSETRON 4 MG RAPDIS TABLET SL (07:21)
[2024-07-29 07:38] LABS: Influenza Virus A Antigen Negative; Influenza Virus B Antigen Negative; Internal Control Within Normal Limits; SARS-CoV-2 Ag NEGATIVE (NEGATIVE)
--- NOTE | 2024-07-29 07:54 | ED_ITS ---
HPI - URI/Sore Throat General Chief Complaint: Upper Respiratory Infection Stated Complaint: URTI COMPLAINTS/CHEST PAIN Time Seen by Provider: 07/29/24 07:10 Source: patient Limitations: no limitations History of Present Illness HPI Narrative: The patient is coming to us with 3 days history of cough productive of yellow sputum in addition to chest pain when taking a deep breath, when pointing to the chest pain she mentioned that the pain is all over the chest, the patient denies any vomiting but she did have some nausea, the patient also have some runny nose and chills No recorded fever Related Data Home Medications ?Medication ?Instructions ?Recorded ?Confirmed albuterol sulfate 90 mcg/actuation 2 puff inhalation Q4H PRN 07/23/24 07/23/24 aerosol inhaler (Ventolin HFA) shortness of breath or wheezing amitriptyline 50 mg tablet 50 mg PO DAILY 07/23/24 07/23/24 atenolol 50 mg tablet 50 mg PO Q24H 07/23/24 07/23/24 clonidine HCl 0.1 mg tablet 0.1 mg PO BID 07/23/24 07/23/24 clopidogrel 75 mg tablet 75 mg PO DAILY 07/23/24 07/23/24 cyclobenzaprine 10 mg tablet 10 mg PO Q12H PRN muscle pain 07/23/24 07/23/24 doxepin 25 mg capsule 25 mg PO DAILY 07/23/24 07/23/24 ergocalciferol (vitamin D2) 1,250 1,250 mcg PO DAILY 07/23/24 07/23/24 mcg (50,000 unit) capsule ferrous sulfate 325 mg (65 mg 325 mg PO DAILY 07/23/24 07/23/24 iron) tablet gabapentin 300 mg capsule 300 mg PO TID 07/23/24 07/23/24 hydroxyzine pamoate 50 mg capsule 50 mg PO BEDTIME 07/23/24 07/23/24 insulin glargine 100 unit/mL (3 10 unit subcut BEDTIME 07/23/24 07/23/24 mL) subcutaneous pen (Lantus Solostar U-100 Insulin) insulin lispro 100 unit/mL 1 sliding scale dose subcut BID 07/23/24 07/23/24 subcutaneous pen (Humalog KwikPen (U-100) Insulin) lorazepam 0.5 mg tablet 0.5 mg PO DAILY 07/23/24 07/23/24 losartan 100 mg tablet 100 mg PO DAILY 07/23/24 07/23/24 pantoprazole 20 mg tablet,delayed 20 mg PO DAILY 07/23/24 07/23/24 release Previous Rx's ?Medication ?Instructions ?Recorded ondansetron 4 mg disintegrating 4 mg PO Q6H PRN nausea and 07/23/24 tablet vomiting #20 tabs acetaminophen 650 mg 650 mg PO Q8H PRN pain #20 tabs 07/29/24 tablet,extended release (Tylenol 8 Hour) amoxicillin 875 mg-potassium 1 tab PO Q12H #14 tabs 07/29/24 clavulanate 125 mg tablet doxycycline hyclate 100 mg tablet 100 mg PO BID 7 days #14 tabs 07/29/24 guaifenesin 600 mg tablet, 600 mg PO Q12H PRN cough #14 tabs 07/29/24 extended release 12 hr (Mucinex) prednisone 20 mg tablet 40 mg (2 x 20 mg) PO DAILY 5 days 07/29/24 #10 tabs Allergies Allergy/AdvReac Type Severity Reaction Status Date / Time NSAIDS (Non-Steroidal Allergy Severe Hives Verified 07/29/24 06:46 Anti-Inflamma tramadol Allergy Hives Verified 07/29/24 06:46 Review of Systems ROS Status of ROS 10 or more systems reviewed and unremark able except as noted in history and below PFSH PFSH Social History Little interest or pleasure in doing things: not at all Feeling down, depressed, or hopeless: not at all Exam Narrative Exam Narrative: Nurses notes and vital signs reviewed and patient is not hypoxic. General: Well-appearing and in no apparent distress. Skin: Warm, dry, no pallor noted. No rash. Head: Normocephalic, atraumatic. Neck: Supple, non-tender. Eye: Pupils are equal, round and EOMI. No scleral icterus. Ears, Nose, Mouth, and Throat: TM are clear, no nasal mucosal hypertrophy. Oral mucosa is moist, no posterior oropharynx erythema, uvula is mid-line Cardiovascular: Regular Rate and Rhythm without murmur, gallop or rub. Respiratory: No accessory muscle use or respiratory distress. Lungs are clear to auscultation, no wheezing, rales or rhonchi Chest Wall: no tenderness Back: No midline thoracic or lumbar vertebral tenderness. No CVA tenderness Musculoskeletal: normal ROM, no calf or popliteal tenderness, no lower extremity edema/swelling GI: Abdomen is soft, non-distended. Normal bowel sounds. No masses appreciated. No tenderness to palpation. No rebound, guarding, or rigidity noted. Neurological: A&O x4. No cranial nerve dysfunction observed. No truncal ataxia. Moves all extremities. Sensation intact. Psychiatric: Cooperative and interactive. Normal mood and affect. Constitutional Vital Signs, click to edit/add: Last Vital Signs Temp 98.5 F 07/29/24 06:46 Pulse 92 H 07/29/24 06:46 Resp 22 H 07/29/24 06:46 BP 177/94 H 07/29/24 06:46 Pulse Ox 99 07/29/24 06:46 O2 Del Method Room Air 07/29/24 06:46 Course Vital Signs Vital signs: Vital Signs Temperature 98.5 F 07/29/24 06:46 Pulse Rate 92 H 07/29/24 06:46 Respiratory Rate 22 H 07/29/24 06:46 Blood Pressure 177/94 H 07/29/24 06:46 Pulse Oximetry 99 07/29/24 06:46 Oxygen Delivery Method Room Air 07/29/24 06:46 Temperature 98.5 F 07/29/24 06:46 Pulse Rate 92 H 07/29/24 06:46 Respiratory Rate 22 H 07/29/24 06:46 Blood Pressure 177/94 H 07/29/24 06:46 Pulse Oximetry 99 07/29/24 06:46 Oxygen Delivery Method Room Air 07/29/24 06:46 MDM - URI/Sore Throat MDM Narrative Medical decision making narrative: Patient COVID and flu test are negative EKG showing sinus rhythm with a heart rate of [address] elevation or depression The patient chest x-ray shows possible infiltrate in the left lower lung Patient will be covered with doxycycline and ceftriaxone addition to prednisone after explained to the patient that it might raise her blood sugar but definitely needed with her bronchitis and COPD history the patient is to follow up with primary care physician in next 2-3 days or to return to the emergency department should any of the signs or symptoms worsen or new symptoms develop. The patient agrees with the following Diagnosis and Treatment plan and the patient will be discharged home. Lab Data Labs: Lab Results 07/29/24 Range/Units 06:49 Influenza Type A Ag Negative Influenza Type B Ag Negative SARS-CoV-2 Ag (CV2AG) Negative (NEGATIVE) Discharge Plan Discharge Chief Complaint: Upper Respiratory Infection Clinical Impression: COPD exacerbation, CAP (community acquired pneumonia) Patient Disposition: Home, Self-Care Time of Disposition Decision: 07:56 Condition: Good Prescriptions / Home Meds: New doxycycline hyclate 100 mg tablet 100 mg PO BID 7 Days Qty: 14 0RF amoxicillin-pot clavulanate 875-125 mg tablet 1 tab PO Q12H Qty: 14 0RF prednisone 20 mg tablet 40 mg PO DAILY 5 Days Qty: 10 0RF guaifenesin [Mucinex] 600 mg tablet extended release 12hr 600 mg PO Q12H PRN (Reason: cough) Qty: 14 0RF acetaminophen [Tylenol 8 Hour] 650 mg tablet extended release 650 mg PO Q8H PRN (Reason: pain) Qty: 20 0RF No Action albuterol sulfate [Ventolin HFA] 90 mcg/actuation HFA aerosol inhaler 2 puff INHALATION Q4H PRN (Reason: shortness of breath or wheezing) atenolol 50 mg tablet 50 mg PO Q24H amitriptyline 50 mg tablet 50 mg PO DAILY clonidine HCl 0.1 mg tablet 0.1 mg PO BID clopidogrel 75 mg tablet 75 mg PO DAILY cyclobenzaprine 10 mg tablet 10 mg PO Q12H PRN (Reason: muscle pain) doxepin 25 mg capsule 25 mg PO DAILY ergocalciferol (vitamin D2) 1,250 mcg (50,000 unit) capsule 1,250 mcg PO DAILY ferrous sulfate 325 mg (65 mg iron) tablet 325 mg PO DAILY gabapentin 300 mg capsule 300 mg PO TID hydroxyzine pamoate 50 mg capsule 50 mg PO BEDTIME insulin glargine [Lantus Solostar U-100 Insulin] 100 unit/mL (3 mL) insulin pen 10 unit SUBCUT BEDTIME insulin lispro [Humalog KwikPen Insulin] 100 unit/mL insulin pen 1 sliding scale dose SUBCUT BID lorazepam 0.5 mg tablet 0.5 mg PO DAILY losartan 100 mg tablet 100 mg PO DAILY pantoprazole 20 mg tablet,delayed release (DR/EC) 20 mg PO DAILY ondansetron 4 mg tablet,disintegrating 4 mg PO Q6H PRN (Reason: nausea and vomiting) Qty: 20 0RF Print Language: Micronesian Instructions: COPD (Chronic Obstructive Pulmonary Disease) (ED), Community Acquired Pneumonia (DC) Referrals: [facility] [Primary Care Provider] - 1 week
[2024-07-29] MEDS: DOXYCYCLINE MONOHYDRATE 100 MG CAPSULE PO (08:06)
[2024-07-29] MEDS: PREDNISONE 20 MG TABLET 40 MG PO (08:06)
== END 2024-07-29 08:10 | disposition home or self-care (01) ==
PROVIDERS: Emergency Medicine; Emergency Provider Emergency Medicine
DX: J18.9 Pneumonia, unspecified organism (principal); J44.1 Chronic obstructive pulmonary disease with (acute) exacerbation; J44.0 Chronic obstructive pulmonary disease with (acute) lower respiratory infection
CPT/HCPCS: 71045; 87804; 87811; 93005; 99285; J7512; Q0162

== ENCOUNTER 2024-08-15 11:54 | Emergency (ER) | payer MEDICAID, SELFPAY ==
--- OUTSIDE RECORDS SUMMARY | 2024-08-15 12:13 | XMS_ITS | CCD ---
Author Organization [facility] Care Team Providers Care Freight Sorter Name Role Phone SELF, REFERRED Unavailable Unavailable SELF, REFERRED Unavailable Unavailable ALTOROK, NEZAM I Unavailable Unavailable ALTOROK, NEZAM I Unavailable Unavailable [facility], Services Primary Care Provider [phone] Kassandra Klein Attending Provider NO FAMILY, PHYSICIAN Primary Care Provider Unava ilable Kassandra Klein Primary Care Provider XOCHITL LIANG Admitting Unavailable AZUL, XOCHITL Consulting Unavailable KASSANDRA KLEIN Referring Unavailable HIGHLANDER, XOCHITL Attending Unavailable HIGHLANDER, XOCHITL Attending Unavailable HIGHLANDER, XOCHITL Admitting Unavailable KASSANDRA KLEIN Primary Care Unavailable DR LOVE MENDENHALL Consulting Unavailable AZUL, XOCHITL Consulting Unavailable JULI WEISS Consulting Unavailable LAUREANO GALEANA Consulting Unavailable SUZY NOONAN Consulting Unavailable AZUL, XOCHITL Admitting Unavailable HIGHLANDER, XOCHITL Attending Unavailable HIGHLANDER, XOCHITL Attending Unavailable HIGHLANDER, XOCHITL Admitting Unavailable CALE SHELLEY Consulting Unavailable SPASIC, KASSANDRA Primary Care Unavailable DO Dwight Irwin Emergency Provider [facility] Services Primary Care Provider Phillip BRIDAL SALES CONSULTANT-C Kassandra Spring Attending Provider [phone] [facility] Primary Care Prov ider ELBERT Figueroa Emergency Provider [facility] Primary Care Provider Phillip BRIDAL SALES CONSULTANT-C Kassandra Spring Attending Provider [phone] Chintan Jackman Primary Care Provider [phone] Spasic, Kassandra E Unavailable [facility] Services Primary Care Provider [phone] Spasic, BRIDAL SALES CONSULTANT-C Kassandra E Attending Provider [facility] Services Primary Care Provider Spasic, BRIDAL SALES CONSULTANT-C Kassandra E Attending Provider MD Huey Bliss Attending Provider [facility] Services Primary Care Provider [phone] Spasic, BRIDAL SALES CONSULTANT-C Kassandra E Attending Provider Replaced By [facility] Services Primary Care Prov ider Spasic, BRIDAL SALES CONSULTANT-C Kassandra E Attending Provider Spasic, BRIDAL SALES CONSULTANT-C Kassandra E Attending Provider Replaced By [facility] Services Primary Care Prov ider KEITH Umana Emergency Provider Spasic, BRIDAL SALES CONSULTANT-C Kassandra E Primary Care Provider MD Rishi [...] Senior, Services Primary Care U navailable Spasic, Kassandar E Attending Unavailable CHINTAN JACKMAN Primary Care Unavailable GENERIC PROVIDER, NO ASSIGNED PCP Primary Care Unavailable PETER SUE Attending Unavailable Spasic BRIDAL SALES CONSULTANT, Kassandra E Unavailable [phone] Spasic BRIDAL SALES CONSULTANT, Kassandra Spring Primary Care Provider [phone] Generic Provider MD, No Assigned Pcp Primary Car e Provider Unavailable Unavailable Primary Care Provider Unavailmario ASHLEY TONY Referring Unavailable AL TURK, ISSAM A Primary Care Unavailable SPASIC, KASSANDRA E Primary Care Unavailable SCOTCH, PAM Referring Unavailable SPASIC, KASSANDRA E Primary Care Unavailable SCOTCH, PAM Attending Unavailable SELF Referring Unavailable SCOTCH, PAM Referring Unavailable AL TURK, ISSAM A Primary Care Unavailable SCOTCH, PAM Attending Unavailable AL TURK, ISSAM A Primary Care Unavailable YEISON PHILLIPS Referring Unavailable Unavailable Unavailable Unavailable Allergies Allergy Classification Reported Allergen(s) Allergy Type Date of Onset Reaction(s) Facility (18 sources) ibuprofen; Translations: [IBUPROFEN] Drug Allergy 3 [facility], [facility] Repository (2 sources) predniSONE; Translations: [PREDNISONE] Drug Allergy 5 [facility] Repository (18 sources) traMADol; Translations: [TRAMADOL] Drug Allergy 3 [facility], [facility] Repository (17 sources) Ketorolac; Translations: [ketorolac] Drug Allergy 1 [facility] (17 sources) Lisinopril; Translations: [lisinopril] Drug Allergy 1 [facility] (15 sources) NSAIDS (Non-Steroidal Anti-Inflamma; Translations: [NSAIDS (Non-Steroidal Anti-Inflamma] Allergy to substance 1 [facility] (3 sources) NSAIDs; Translations: [NSAIDS (NON-STEROIDAL ANTI-INFLAMMATO RY DRUG)] Drug allergy (disorder) 4 [facility] Repository (2 sources) predniSONE Drug Allergy [facility] Repository (2 sources) traMADol Drug Allergy [facility] Repository (16 sources) Aspirin; Translations: [aspirin] Drug Allergy 2 [facility] (3 sources) Ibuprofen Drug Allergy 3 Itching, Hives [facility] Work Phone: (6 sources) Naproxen; Translations: [NAPROXEN] Drug Allergy 3 Itching [facility] Work Phone: (9 sources) traMADol Drug Allergy 3 Other: See Comments, Hives, Seizure, Unknown [facility] Work Phone: (1 source) Ibuprofen Drug Allergy 4 [facility] Repository (1 source) traMADol Drug Allergy 4 [facility] Repository (1 source) Non-steroidal anti-inflammato ry agent Drug Allergy 4 [facility] Work Phone: (1 source) predniSONE Drug Allergy 4 [facility] Work Phone: Medications Current Medications Medication Drug [...] nophen Active 1 TAB PO Q6H 10 January 29, 2024 Start: 04-20-2021 End: 05-27-2021 take 1 tablet by mouth every six hours Hydrocodone-Acetaminophen Discontinued 1 TAB PO Q6H 12 April 20, 2021 May 27, 2021 2:28pm Start: 06-07-2020 End: 08-20-2020 take 1 tablet by mouth every six hours Hydrocodone-Acetaminophen ([place]) 5-325 mg tablet Discontinued 1 TAB PO [...] 1:00am October 06, 2019 2:43pm Start: 05-11-2019 End: 08-09-2024 take 1 tablet by mouth every twelve hours as needed HYDROcodone-acetaminophen ([place]) 5-325 mg per tablet Take 1 tablet by mouth twice daily as needed. 0 05/11/2019 08/09/2024 Discontinued Start: 01-07-2019 End: 07-16-2019 take 1 tablet by mouth every four to six hours Hydrocodone-Acetaminophen ([place]) 5-325 mg tablet Discontinued 1 TAB PO EVERY 4-6 HOURS 10 3 January 07, 2019 July 16, 2019 9:15am Start: 08-27-2017 End: 01-11-2018 take 1 tablet by mouth every four to six hours Hydrocodone-Acetaminophen ([place]) 5-325 mg tablet Discontinued 1 TAB PO [...] INH INHALATION every 6 to 8 hours August 14, 2019 10:21am Start: 08-14-2019 Albuterol [...] as needed. amLODIPine 10 mg oral tablet (20 sources) Dihydropyridine Calcium Channel Lilia Start: 05-11-20 [...] 03/30/2024 Active ARIPiprazole 10 mg oral tablet (16 sources) Atypical Antipsychotic Start: 11-15-19 take 10 [...] tablet (15 sources) Macrolide Antimicrobial Start: 03-24-20 24 take 1 tablet by mouth once daily [...] 2019 9:15am BUDESONIDE/FORMOTEROL FUMARA TE (SYMBICORT INHALATION) (8 sources) BUDESONIDE/FORMO TEROL FUMARATE (SYMBICORT INHALATION) Indications: Sarcoidosis Inhale as instructed. Active BUDESONIDE/FORMO TEROL FUMARATE (SYMBICORT INHALATION) Indications: Sarcoidosis Inhale as instructed. 0 Active Comment on above: Inhale as instructed . Calcium Carbonate-Vitamin D3 180-5,000 mg-unit tab (8 sources) Calcium Carbonat e-Vitamin D3 180-5,000 mg-unit [...] with meals. empagliflozin 10 mg oral tablet (8 sources) Sodium-Glucose Cotransporter 2 Inhibitor take 1 tablet by mouth once daily at breakfast empagliflozin (JARDIANCE) 10 mg tablet Take 10 mg by mouth daily with breakfast. Active Comment on above: Take 10 mg by mouth daily with breakfast. ergocalciferol 1.25 mg oral capsule (16 sources) Provitamin D2 Compound Start: 019 take 1 capsule by mouth every week ergocalciferol 50,000 unit capsule (VITAMIN D2, DRISDOL) TAKE 1 CAPSULE BY MOUTH ONE TIME PER WEEK 3 05/11/2019 Active Comment on above: TAKE 1 CAPSULE BY MO UTH ONE TIME PER WEEK ferrous sulfate 325 mg oral tablet (20 sources) Start: 020 take 325 mg by mouth once daily Ferrous Sulfate Active 325 MG PO Daily July 16, 2019 1:00am Start: 05-11-2019 take 1 tablet by shalini th once daily ferrous sulfate 325 mg (65 mg iron) tablet Take 1 tablet by mouth once daily. 2 05/11/2019 Active Comment on above: Take 1 tablet by shalini th once daily. fluticasone / salmeterol (1 source) [...] 04/02/2024 Active gabapentin 300 mg oral capsule (20 sources) Anti-epileptic Agent Start: 3 End: 3 [...] needed. losartan potassium 50 mg oral tablet (16 sources) Angiotensin 2 Receptor Lilia Start: 11-14-2022 [...] tablet Discontinued 1 TAB PO Q6H 8 May 29, 2021 December 22, 2021 6:20am [...] hours Oxycodone-Acetaminophen Discontinued 2 TAB PO Q8H 20 May 02, 2018 12:00am June 05, 2018 2:51pm [...] Cephalexin Discontinued 500 MG PO Twice daily 18 04January 17, 2019 12:00am July 16, 2019 9:15am codeine phosphate 2 mg/ml / promethazine hydrochloride 1.25 mg/ml oral solution (14 sources) Opioid Agonist, Phenothiazine Start: 04-20-2018 End: 06-05-2018 take 1 mL by mouth every four hours Promethazine-Codeine Discontinued 5 ML PO Q4H 120 3 April 20, 2018 12:00am June 05, 2018 2:51pm cyclobenzaprine hydrochloride 10 mg oral tablet (20 sources) Muscle Relaxant Start: 04-30-2017 End: 07-02-2017 [...] Hyclate Discontinued 100 MG PO Twice daily 14 August 14, 2019 1:00am October 06, 2019 [...] Lisinopril Discontinued 20 MG PO Daily 90 November 20, 2019 12:00am August 21, [...] sources) Proton Pump Inhibitor Start: 06-27-2021 End: 05-18-2023 take 20 mg by mouth twice daily Pantoprazole Discontinued 20 MG PO Twice daily 60 June 27, 2021 6:56am November 14, 2022 [...] daily Prednisone Discontinued 10 MG PO Daily April 30, 2017 12:00am July 27, 2017 [...] Fri05/10/24 at 0951, Until Fri05/10/24 at 0951 valsartan 80 mg oral tablet (14 sources) [...] [Unspecified abdominal pain] Onset: 4 12-22-2023 Episodic Anxiety disorders (3 sources) Anxiety; Translations: [Anxiety disorder, unspecified] Onset: 5 08-09-2024 Chronic Aortic and peripheral arterial embolism or thrombosis [...] 4 12-14-2019 Chronic Diabetes mellitus without complication (18 sources) Diabetes mellitus; Translations: [Type 2 diabetes [...] disorders (20 sources) Sarcoidosis; Translations: [Sarcoidosis, unspecified] Onset: 5 06-07-2018 Chronic Immunizations and screening for infectious [...] Translations: [Other chest pain] 10-16-2021 Episodic Osteoarthritis (20 sources) Primary gonarthrosis, bilateral; Translations: [Bilateral primary [...] pain; Translations: [Pain in unspecified joint] Episodic Pneumonia (except that caused by tuberculosis [...] Problem Date Documented Da te Episodic/Chronic Lymphadenitis (8 sources) Lymphadenopathy; Translations: [Generalized enlarged lymph nodes] Onset: 05-18-2013 05-18-2013 Episodic Other aftercare (1 source) [facility]PC (current) use of insulin; Translations: [SENIOR CARE CURRENT USE OF INSULIN] Onset: 03-16-2021 Episodic Other aftercare (1 source) Other long term acute care registered nurse (current) drug therapy; Translations: [OTH ACCOUNTING REPRESENTATIVE CURRENT DRUG THERAPY] Onset: 03-16-2021 Episodic Other [...] INSTABILITY LEFT ANKLE] Onset: 03-16-2021 Episodic Other non-traumatic joint disorders (6 sources) Effusion of joint of left knee; Translations: [Effusion, left knee] Onset: 05-10-2024 05-10-2024 Episodic Other non-traumatic joint disorders (1 source) Pain in left knee; Translations: [Acute pain of left knee] Onset: 05-04-2024 Episodic Other non-traumatic joint disorders (1 source) Effusion, left knee; Translations: [Swelling of left knee joint] Onset: 05-04-2024 Episodic Other upper respiratory infections (15 sources) Upper respiratory infection; Translations: [Acute upper respiratory infection, unspecified] Onset: 04-17-2023 08-15-2019 Episodic Results Test Name Value Interpretation Reference Range Facility [facility] 08-13-2024 [facility] Telephone (ORQ) -- LONDON VELASQUEZ ([id number]) 1965 F Date Time Provider Department 08/13/24 PAM WANG During your visit today, we recorded the following information about you: Ana Laura Vera 08/13/2024 12:45 PM Signed London Velasquez is calling Pam Wang PA-C today with concern regarding left knee surgery. She states she was to be scheduled in September but she is in such pain wants to know if it can be any sooner. Call her please. No chief complaint on file. Patient has been identified by name and birthdate. Duration of symptoms: Person calling: self Call patient at: at home [phone] ([phone] (cell) Was an appointment scheduled: No Closing statement: Symptom Call: Thank you for calling [facility], your call is very important. A nurse will call in approximately 2-4 hours during business hours. If this is an emergency, please contact 911. Ryanne Barraza MA 08/13/2024 3:45 PM Signed Called patient and explained that we would call her if cancellation there is no cancellation at this time but if someone cancels wlll call her and continue with the tylenol Ryanne Caceres MA Allergies As of Date: 08/13/2024 Noted Allergy Reaction TRAMADOL 05/18/2013 14 - Other: See Comments Date Reviewed: 08/09/2024 Reviewed by: Silvia Arzate MA - Fully Assessed Prescriptions as of 08/13/2024 - empagliflozin (JARDIANCE) 10 mg tablet Take 10 mg by mouth daily with breakfast. - ARIPiprazole (ABILIFY) 10 mg tablet Take 10 mg by mouth once daily. - losartan (COZAAR) 50 mg tablet Take 50 mg by mouth once daily. - cyclobenzaprine (FLEXERIL) 10 mg tablet Take by mouth three times daily. - gabapentin (NEURONTIN) 300 mg capsule Take 2 capsules by mouth twice daily for 90 days. - amLODIPine (NORVASC) 10 mg tablet Take 10 mg by mouth once daily. - albuterol (PROVENTIL) 2.5 mg /3 mL (0.083 %) nebulizer solution Inhale 2.5 mg as instructed every 6 hours as needed. - ferrous sulfate 325 mg (65 mg iron) tablet Take 1 tablet by mouth once daily. - LORazepam (ATIVAN) 0.5 mg tab Take 0.5 mg by mouth twice daily as needed. - ergocalciferol 50,000 unit capsule (VITAMIN D2, DRISDOL) TAKE 1 CAPSULE BY MOUTH ONE TIME PER WEEK - BUDESONIDE/FORMOTEROL FUMARATE (SYMBICORT INHALATION) Inhale as instructed. - ALBUTEROL INHALATION Inhale as instructed. - dexamethasone 4 mg tablet Take 4 mg by mouth twice daily with meals. - atenolol 50 mg tablet Take 50 mg by mouth once daily. - Calcium Carbonate-Vitamin D3 180-5,000 mg-unit tab Take by mouth. Problem List As Of Date 08/13/2024 Noted Resolved Lymphadenopathy [R59.1] 05/18/2013 Primary osteoarthritis of both knees [M17.0] 05/10/2024 Effusion, left knee [M25.462] 05/10/2024 Primary osteoarthritis of left knee [M17.12] 05/10/2024 Anxiety [F41.9] 08/09/2024 Sarcoidosis [D86.9] 08/09/2024 Type 2 diabetes mellitus without complications *08/09/2024 Encounter Status:Closed by RYANNE CACERES on 08/13/24 [facility] CNOVon 08-09-2024 CNOV Office Visit (LOORRM ) -- LONDON VELASQUEZ ([id number]) 1965 F Date Time Provider Department 08/09/24 3:00 PM PAM WANG During your visit today, we recorded the following information about you: Weight Height 98.9 kg 1.702 m Maryam Suh Cast Tech 08/09/2024 5:56 PM Signed Fitted patient with a large [place] Hinged Knee Brace for the left knee. Instructions were given on application/adjustments. Will f/u as scheduled/prn. PAULETTE Chamorro Denise, PA-C 08/09/2024 5:56 PM Signed This document has been created with the use of voice recognition technology. It may contain inaccuracies: misspellings, inaccurate syntax or word sense that escaped review. Chief complaint: recheck of her left knee pain HISTORY: London is a 59 year old female. Patient comes in today for follow up of her left knee. Patient has a past medical history, medications and allergies were reviewed. She reports that she had only about 1 week of relief after the cortisone injection last visit in April. She has had several episodes since then of significant pain and swelling which come and go but in the last week it has been quite severe and constant. She states she has pain now even at rest as well as with any walking or activity. Points across the whole knee. Pain level is a 10/10. Using Tylenol and elevating the knee. Denies any new injury or aggravating incident. Denies any hip pain complaints. Has no symptoms on the right knee. No other musculoskeletal complaints ROS : REVIEW OF SYMPTOMS: Constitutional: patient denies any recent fever or significant change in weight Gastrointestinal: patient denies any current abdominal discomfort and patient notes history to tolerance of NSAIDs Musculoskeletal: as noted in the HPI Neurologic: as noted in the HPI SOCIAL HISTORY: Tobacco Use: Quit PAST MEDICAL HISTORY Diagnosis Date Depression Diabetes (HCC) Hypertension Sarcoidosis PAST SURGICAL HISTORY Procedure Laterality Date TONSILLECTOMY HX Medications reviewed. ALLERGIES Allergen Reactions Tramadol Other: See Comments Social History Tobacco Use Smoking status: Former Smokeless tobacco: Never EXAMINATION: GENERAL: Appears healthy, well-nourished, no deformities. ORIENTATION: Alert and oriented to person place and time HABITUS: Normal GAIT: Ambulating with a significant antalgic gait on the left On physical exam of the left knee today, she has 1+ effusion of the knee. No swelling distally. Calf is soft and nontender. Negative Homans. She has significant tenderness along the medial joint line and moderate tenderness about the patella and lateral joint line. She has a correctable varus deformity. No other instability. Neurovascularly is intact. Good hip motion without irritability. Right knee exam is benign. RADIOGRAPHS: Personally reviewed by myself demonstrating complete collapse of the medial compartment of the left knee on AP weightbearing and flexion weightbearing views. IMPRESSION: Encounter Diagnosis ICD-10-CM 1. Primary osteoarthritis of left knee M17.12 XR KNEE GENERAL 4V AP BOTH/PA BOTH/LAT/MERC LEFT XR KNEE SPECIFY 1V LEFT Plan: We discussed that she has advanced degenerative arthritis of her left knee and has not obtained any significant lasting relief with conservative treatment such as Tylenol, lidocaine patch, multiple cortisone injections and bracing. Suggest that we need to consider knee replacement surgery and she wishes to do so as she is quite miserable. Will arrange discussion with Dr. Menendez to begin planning. She agrees with this plan. Pam Wang PA-C August 09, 2024 5:45 PM Referring Provider: SELF [200] Allergies As of Date: 08/09/2024 Noted Allergy Reaction TRAMADOL 05/18/2013 14 - Other: See Comments Date Reviewed: 08/09/2024 Reviewed by: Silvia Arzate MA - Fully Assessed Reason for Visit: Established Patient [175] Knee Pain [132] Primary Visit Diagnosis:Primary osteoarthritis of left knee [M17.12] Order(s):XR KNEE GENERAL 4V AP BOTH/PA BOTH/LAT/MERC LEFT [[id number]] Order #: [id number] FUTURE XR KNEE SPECIFY 1V LEFT [[id number]] Order #: [id number] FUTURE Prescriptions as of 08/09/2024 - empagliflozin (JARDIANCE) 10 mg tablet Take 10 mg by mouth daily with breakfast. - ARIPiprazole (ABILIFY) 10 mg tablet Take 10 mg by mouth once daily. - losartan (COZAAR) 50 mg tablet Take 50 mg by mouth once daily. - cyclobenzaprine (FLEXERIL) 10 mg tablet Take by mouth three times daily. - gabapentin (NEURONTIN) 300 mg capsule Take 2 capsules by mouth twice daily for 90 days. - amLODIPine (NORVASC) 10 mg tablet Take 10 mg by mouth once daily. - albuterol (PROVENTIL) 2.5 mg /3 mL (0.083 %) nebulizer solution Inhale 2.5 mg as instructed every 6 hours as needed. - ferrous sulfate 325 mg (65 mg iron) tablet Take 1 tablet by mouth (more content not included)... Normal [facility] No Panel Informationon 08-09 IMPRESSION: Severe left knee medial compartment osteoarthritis, as detailed. Relatively maintained lateral joint space on valgus stress view. Information Analyst: [facility] CENTER[facility]van Transcribe Date/Time: Aug 09 2024 5:48P Dictated by : ROSSY GARZA MD This examination was interpreted and the report reviewed and electronically signed by: ROSSY GARZA MD on Aug 09 2024 5:50PM [facility] DIVISION OF RADIOLOGY Radiology Study observation (narrative) [facility] No Panel InformationOrdered By: [facility] Provider on 08-09-2024 [facility] XR KNEE 4V AP/PA BOTH+LAT/ME R LTon 08-09-2024 XR KNEE 4V AP/PA BOTH+LAT/DIRK LT * * *Final Report* * * DATE OF EXAM: Aug 09 2024 3:45PM LZX 5202 - XR KNEE 4V AP/PA BOTH+LAT/DIRK LT / PROCEDURE REASON: Primary osteoarthritis of left knee * * * * Physician Interpretation * * * * EXAMINATION / TECHNIQUE: XR KNEE SPECIFY 1V LT, XR KNEE 4V AP/PA BOTH+LAT/DIRK LT PATIENT/TECHNOLOGIST PROVIDED HISTORY: Pain and swelling in knee. Painful to walk CLINICAL INFORMATION ( PROVIDED BY ORDERING CLINICIAN) : Primary osteoarthritis of left knee COMPARISON: RESULT: Left knee: Medial Compartment: Subjective: Severe degenerative changes. KL Grade 4: Large osteophytes, marked JSN, severe sclerosis and/or definite bony deformity. Lateral Compartment: Subjective: Mild degenerative changes. Left lateral compartment is relatively maintained on valgus stress view. KL Grade 2: Definite osteophytes and/or possible joint space narrowing. Patellofemoral Compartment: Subjective: Mild degenerative changes. KL Grade 2: Definite osteophytes and/or possible joint space narrowing. Other: No acute fracture or dislocation. Moderate knee joint effusion. Right knee is notable for moderate to severe patellofemoral joint space narrowing. IMPRESSION: Severe left knee medial compartment osteoarthritis, as detailed. Relatively maintained lateral joint space on valgus stress view. Information Analyst: RONA Transcribe Date/Time: Aug 09 2024 5:48P Dictated by : ROSSY GARZA MD This examination was interpreted and the report reviewed and electronically signed by: ROSSY GARZA MD on Aug 09 2024 5:50PM EST [id number] Normal [facility] XR KNEE SPECIFY 1V LTon 07-31 XR KNEE SPECIFY 1V LT * * *Final Report* * * DATE OF EXAM: Aug 09 2024 3:45PM LZX 5210 - XR KNEE SPECIFY 1V LT / PROCEDURE REASON: Primary osteoarthritis of left knee * * * * Physician Interpretation * * * * EXAMINATION / TECHNIQUE: XR KNEE SPECIFY 1V LT, XR KNEE 4V AP/PA BOTH+LAT/DIRK LT PATIENT/TECHNOLOGIST PROVIDED HISTORY: Pain and swelling in knee. Painful to walk CLINICAL INFORMATION ( PROVIDED BY ORDERING CLINICIAN) : Primary osteoarthritis of left knee COMPARISON: RESULT: Left knee: Medial Compartment: Subjective: Severe degenerative changes. KL Grade 4: Large osteophytes, marked JSN, severe sclerosis and/or definite bony deformity. Lateral Compartment: Subjective: Mild degenerative changes. Left lateral compartment is relatively maintained on valgus stress view. KL Grade 2: Definite osteophytes and/or possible joint space narrowing. Patellofemoral Compartment: Subjective: Mild degenerative changes. KL Grade 2: Definite osteophytes and/or possible joint space narrowing. Other: No acute fracture or dislocation. Moderate knee joint effusion. Right knee is notable for moderate to severe patellofemoral joint space narrowing. IMPRESSION: Severe left knee medial compartment osteoarthritis, as detailed. Relatively maintained lateral joint space on valgus stress view. Information Analyst: RONA Transcribe Date/Time: Aug 09 2024 5:48P Dictated by : ROSSY GARZA MD This examination was interpreted and the report reviewed and electronically signed by: ROSSY GARZA MD on Aug 09 2024 5:50PM EST [id number] Normal [facility] XR Knee - left 4 Viewson * * *Final Report* * * DATE OF EXAM: Aug 09 2024 3:45PM LZX 5202 - XR KNEE 4V AP/PA BOTH+LAT/DIRK LT / PROCEDURE REASON: Primary osteoarthritis of left knee * * * * Physician Interpretation * * * * EXAMINATION / TECHNIQUE: XR KNEE SPECIFY 1V LT, XR KNEE 4V AP/PA BOTH+LAT/DIRK LT PATIENT/TECHNOLOGIST PROVIDED HISTORY: Pain and swelling in knee. Painful to walk CLINICAL INFORMATION ( PROVIDED BY ORDERING CLINICIAN) : Primary osteoarthritis of left knee COMPARISON: RESULT: Left knee: Medial Compartment: Subjective: Severe degenerative changes. KL Grade 4: Large osteophytes, marked JSN, severe sclerosis and/or definite bony deformity. Lateral Compartment: Subjective: Mild degenerative changes. Left lateral compartment is relatively maintained on valgus stress view. KL Grade 2: Definite osteophytes and/or possible joint space narrowing. Patellofemoral Compartment: Subjective: Mild degenerative changes. KL Grade 2: Definite osteophytes and/or possible joint space narrowing. Other: No acute fracture or dislocation. Moderate knee joint effusion. Right knee is notable for moderate to severe patellofemoral joint space narrowing. DIVISION OF RADIOLOGY Provider, [facility] Inderjit [facility] - 08/09/2024 * * *Final Report* * * DATE OF EXAM: Aug 09 2024 3:45PM LZX 5202 - XR KNEE 4V AP/PA BOTH+LAT/DIRK LT / PROCEDURE REASON: Primary osteoarthritis of left knee * * * * Physician Interpretation * * * * EXAMINATION / TECHNIQUE: XR KNEE SPECIFY 1V LT, XR KNEE 4V AP/PA BOTH+LAT/DIRK LT PATIENT/TECHNOLOGIST PROVIDED HISTORY: Pain and swelling in knee. Painful to walk CLINICAL INFORMATION ( PROVIDED BY ORDERING CLINICIAN) : Primary osteoarthritis of left knee COMPARISON: RESULT: Left knee: Medial Compartment: Subjective: Severe degenerative changes. KL Grade 4: Large osteophytes, marked JSN, severe sclerosis and/or definite bony deformity. Lateral Compartment: Subjective: Mild degenerative changes. Left lateral compartment is relatively maintained on valgus stress view. KL Grade 2: Definite osteophytes and/or possible joint space narrowing. Patellofemoral Compartment: Subjective: Mild degenerative changes. KL Grade 2: Definite osteophytes and/or possible joint space narrowing. Other: No acute fracture or dislocation. Moderate knee joint effusion. Right knee is notable for moderate to severe patellofemoral joint space narrowing. IMPRESSION IMPRESSION: Severe left knee medial compartment osteoarthritis, as detailed. Relatively maintained lateral joint space on valgus stress view. Information Analyst: [facility] Transcribe Date/Time: Aug 09 2024 5:48P Dictated by : ROSSY GARZA MD This examination was interpreted and the report reviewed and electronically signed by: ROSSY GARZA MD on Aug 09 2024 5:50PM [facility] XR Knee - left Single viewon 08-09-2024 * * *Final Report* * * DATE OF EXAM: Aug 09 2024 3:45PM LZX 5210 - XR KNEE SPECIFY 1V LT / PROCEDURE REASON: Primary osteoarthritis of left knee * * * * Physician Interpretation * * * * EXAMINATION / TECHNIQUE: XR KNEE SPECIFY 1V LT, XR KNEE 4V AP/PA BOTH+LAT/DIRK LT PATIENT/TECHNOLOGIST PROVIDED HISTORY: Pain and swelling in knee. Painful to walk CLINICAL INFORMATION ( PROVIDED BY ORDERING CLINICIAN) : Primary osteoarthritis of left knee COMPARISON: RESULT: Left knee: Medial Compartment: Subjective: Severe degenerative changes. KL Grade 4: Large osteophytes, marked JSN, severe sclerosis and/or definite bony deformity. Lateral Compartment: Subjective: Mild degenerative changes. Left lateral compartment is relatively maintained on valgus stress view. KL Grade 2: Definite osteophytes and/or possible joint space narrowing. Patellofemoral Compartment: Subjective: Mild degenerative changes. KL Grade 2: Definite osteophytes and/or possible joint space narrowing. Other: No acute fracture or dislocation. Moderate knee joint effusion. Right knee is notable for moderate to severe patellofemoral joint space narrowing. DIVISION OF RADIOLOGY Provider, Jessica Inderjit hanna [employer] - 08/09/2024 * * *Final Report* * * DATE OF EXAM: Aug 09 2024 3:45PM KALINX 5210 - XR KNEE SPECIFY 1V LT / PROCEDURE REASON: Primary osteoarthritis of left knee * * * * Physician Interpretation * * * * EXAMINATION / TECHNIQUE: XR KNEE SPECIFY 1V LT, XR KNEE 4V AP/PA BOTH+LAT/DIRK LT PATIENT/TECHNOLOGIST PROVIDED HISTORY: Pain and swelling in knee. Painful to walk CLINICAL INFORMATION ( PROVIDED BY ORDERING CLINICIAN) : Primary osteoarthritis of left knee COMPARISON: RESULT: Left knee: Medial Compartment: Subjective: Severe degenerative changes. KL Grade 4: Large osteophytes, marked JSN, severe sclerosis and/or definite bony deformity. Lateral Compartment: Subjective: Mild degenerative changes. Left lateral compartment is relatively maintained on valgus stress view. KL Grade 2: Definite osteophytes and/or possible joint space narrowing. Patellofemoral Compartment: Subjective: Mild degenerative changes. KL Grade 2: Definite osteophytes and/or possible joint space narrowing. Other: No acute fracture or dislocation. Moderate knee joint effusion. Right knee is notable for moderate to severe patellofemoral joint space narrowing. IMPRESSION IMPRESSION: Severe left knee medial compartment osteoarthritis, as detailed. Relatively maintained lateral joint space on valgus stress view. Information Analyst: [facility] Transcribe Date/Time: Aug 09 2024 5:48P Dictated by : ROSSY GARZA MD This examination was interpreted and the report reviewed and electronically signed by: ROSSY GARZA MD on Aug 09 2024 5:50PM [facility] Hemoglobin A1Con 06-28-2024 Average glucose Estimated from glycated hemoglobin (Bld) [Mass/Vol] 148 mg/dL [facility] Comment on above: The ADA and AACC rec ommend providing the estimated average glucose result to permit better patient understanding of their HBA1c result. HbA1c (Bld) [Mass fraction] 6.8 % High 4.0 - 6.0 % [facility] Interpretation and review of laboratory results Abnormal [facility] Glucose [Mass/Vol] 148 mg/dL Normal [facility] Comment on above: Result Comment: The ADA and AACC recommend providing the estimated average glucose result to permit better patient understanding of their HBA1c result. Performed By: #### G LYHGB #### [facility] [address] [place], [place] [address] Commodities Broker: Omega Rivera MD HbA1c (Bld) [Mass fraction] 6.8 % High 4.0-6.0 [facility] Comment on above: Performed By: #### G LYHGB #### [facility] [address] [place], [place] [id number] Commodities Broker: MD RASHEED PaulOVon 05-10-2024 [facility] Office Visit (LOORR ) -- LONDON VELASQUEZ ([id number]) 1965 F Date Time Provider Department 05/10/24 8:30 AM PAM WANG During your visit today, we recorded the following information about you: Pam Wang PA-C 05/10/2024 5:23 PM Signed SERVICE DATE: May 10, 2024 PCP: Kassandra Klein, [employer]NAGER, BRIDAL SALES CONSULTANT Consult requested by emergency department for an [...] is norm (more content not included)... Normal [facility] Large Joint Arthro/Inj: L kn ee jointon 05-10-2024 Pam Wang PA-C 05/10/2024 5:23 PM Large Joint Arthro/Inj: L knee joint Informed Consent Consent Obtained: Verbal [place] Protocol A moment to CARE was completed. [...] equipment or retained foreign bodies applicable. Third democrat verified by Tyrese De La Cruz MA. [facility] XR KNEE 4V AP/PA BOTH+LAT/ME R [...] SLIGHT DECREASE IN THE JOINT EFFUSION. OSTEOARTHRITIS Information Analyst: [employer] Transcribe Date/Time: May 10 2024 8:54A Dictated by : JAYME SELBY MD This examination was interpreted and the report reviewed and electronically signed by: JAYME SELBY MD on May 10 2024 8:56AM EST [id number] Normal [facility] XR Knee - left 4 Viewson IMPRESSION: PERSISTE NT ANTERIOR SOFT TISSUE SWELLING WITH SLIGHT DECREASE IN THE JOINT EFFUSION. OSTEOARTHRITIS Information Analyst: [facility] Transcribe Date/Time: May 10 2024 8:54A Dictated by : JAYME SELBY MD This examination was interpreted and the report reviewed and electronically signed by: JAYME SELBY MD on May 10 2024 8:56AM [facility] DIVISION OF RADIOLOGY * * *Final Report* [...] mildly narrowed laterally. DIVISION OF RADIOLOGY Provider, [facility] - 05/10/2024 * * *Final Report* * [...] SLIGHT DECREASE IN THE JOINT EFFUSION. OSTEOARTHRITIS Information Analyst: [facility] Transcribe Date/Time: May 10 2024 8:54A Dictated by : JAYME SELBY MD This examination was interpreted and the report reviewed and electronically signed by: JAYME SELBY MD on May 10 2024 8:56AM EST [facility] Radiology Study observation (narrative) Kajal gomez [facility] XR Knee - left 4 ViewsOrdere d By: Ccsola Provider on 05-10-2024 [facility] Basic metabolic 2000 panelon 05-04-2024 Anion gap [Moles/Vol] 13 mmol/L Normal 8-15 [facility] Comment on above: Order Comment: Speci men Type: BLOOD SPECIMENOrdering Facility: [facility] Address: [address] [place] [address] Performed By: #### 1 988-5, 3084-, 85839-8 ####[facility] LABIA [id number] [place] [address] [place] Calcium [Mass/Vol] 9.1 mg/dL Normal 8.5-10.2 [facility] Comment on above: Order Comment: Speci men Type: BLOOD SPECIMENOrdering Facility: [facility] Address: [address] [place] [address] Performed By: #### 1 988-5, 3084-1, 64736-5 ####[facility] LABCLIA [id number] [place] [address] [place] Chloride [Moles/Vol] 111 mmol/L High 98-107 [facility] Comment on above: Order Comment: Speci men Type: BLOOD SPECIMENOrdering Facility: [facility] Address: [address] [place], [place] [address] Performed By: #### 1 988-5, 3084, ####[facility] LABIA [id number] [place] [id number] [place] CO2 [Moles/Vol] 17 mmol/L Low 22-30 [facility] Comment on above: Order Comment: Speci men Type: BLOOD SPECIMENOrdering Facility: [facility] Address: [address] [place] [address] Performed By: #### 1 988-5, 30809-28, ####[facility] LABIA [id number] [place] [address] [place] Creatinine [Mass/Vol] 0.80 mg/dL Normal 0.58-0.96 [facility] Comment on above: Order Comment: Speci men Type: BLOOD SPECIMENOrdering Facility: [facility] Address: [address] [place] [address] Performed By: #### 1 988-5, 30809-28, ####[facility] LABIA [id number] [place] [address] [place] Creatinine and Glomerular filtration rate.predicted panel (S/P/Bld) 85 mL/min/1.73m??? Normal >=60 [facility] Comment on above: Order Comment: Speci men Type: BLOOD SPECIMENOrdering Facility: [facility] Address: [address] [place] [address] Result Comment: Doyle mated Glomerular Filtration Rate [...] accurately reflect actual GFR. Performed By: #### 1 988-5, 3084-1, 35167-7 ####[facility] LABCLIA [id number] [place] [address] [place] Glucose [Mass/Vol] 79 mg/dL Normal 74-99 [facility] Comment on above: Order Comment: Speci men Type: BLOOD SPECIMENOrdering Facility: [facility] Address: [address] [place] [address] Result Comment: The [place] Diabetes Association (ADA) provides guidance for cutoff [...] Standards of Medical Care in Diabetes 2016, [place] [employer]. Diabetes Care. 2016.39(Suppl 1). Performed By: #### 1 988-5, 3084-1, 39976-0 ####[facility] LABIA [id number] [place] [address] [place] Potassium [Moles/Vol] 4.2 mmol/L Normal 3.7-5.1 [facility] Comment on above: Order Comment: Speci men Type: BLOOD SPECIMENOrdering Facility: [facility] Address: [address] [place] [address] Performed By: #### 1 988-5, 3084-1, 03510-0 ####[facility] LABIA [id number] [place] [address] [place] Sodium [Moles/Vol] 141 mmol/L Normal 136-144 [facility] Comment on above: Order Comment: Speci men Type: BLOOD SPECIMENOrdering Facility: [facility] Address: [address] [place] [address] Performed By: #### 1 988-5, 3084-1, 29384-5 ####[facility] LABCLIA [id number] [place] [address] [place] Urea nitrogen [Mass/Vol] 11 mg/dL Normal 7-21 [facility] Comment on above: Order Comment: Speci men Type: BLOOD SPECIMENOrdering Facility: [facility] Address: [address] [place] [address] Performed By: #### 1 988-5, 3084-1, 20837-6 ####[facility] LABCLIA [id number] [place] [address] [place] CBC W Auto Differential pane l (Bld)on 05-04-2024 Anisocytosis Ql (Bld) Present Normal [facility] Comment on above: Order Comment: Speci men Type: BLOOD SPECIMENOrdering Facility: [facility] Address: [address] [place] [address] Performed By: #### 5 7021-8 ####[facility] LABIA [id number] [place] [address] [place] Basophils (Bld) [#/Vol] 0.30 10*3/uL High <0.11 [facility] Comment on above: Order Comment: Speci men Type: BLOOD SPECIMENOrdering Facility: [facility] Address: [address] [place] [address] Performed By: #### 5 7021-8 ####[facility] LABCLIA [id number] [place] [address] [place] Basophils/100 WBC (Bld) 3.5 % Normal [facility] Comment on above: Order Comment: Speci men Type: BLOOD SPECIMENOrdering Facility: [facility] Address: [address] [place] [address] Performed By: #### 5 7021-8 ####[facility] LABCLIA [id number] [place] [address] [place] Differential cell count method Nom (Bld) Manual Normal [facility] Comment on above: Order Comment: Speci men Type: BLOOD SPECIMENOrdering Facility: [facility] Address: [address] [place] [address] Performed By: #### 5 7021-8 ####[facility] LABCLIA [id number] [place] [address] [place] Eosinophils (Bld) [#/Vol] 0.30 10*3/uL Normal <0.46 [facility] Comment on above: Order Comment: Speci men Type: BLOOD SPECIMENOrdering Facility: [facility] Address: [address] [place] [address] Performed By: #### 5 7021-8 ####[facility] LABCLIA [id number] [place] [address] [place] Eosinophils/100 WBC (Bld) 3.5 % Normal [facility] Comment on above: Order Comment: Speci men Type: BLOOD SPECIMENOrdering Facility: [facility] Address: [address] [place] [address] Performed By: #### 5 7021-8 ####[facility] LABCLIA [id number] [place] [address] [place] Erythrocyte distribution width (RBC) [Ratio] 15.2 % High 11.5-15.0 [facility] Comment on above: Order Comment: Speci men Type: BLOOD SPECIMENOrdering Facility: [facility] Address: [address] [place] [address] Performed By: #### 5 7021-8 ####[facility] LABCLIA [id number] [place] [address] [place] Hematocrit (Bld) [Volume fraction] 36.8 % Normal 36.0-46.0 [facility] Comment on above: Order Comment: Speci men Type: BLOOD SPECIMENOrdering Facility: [facility] Address: [address] [place] [address] Performed By: #### 5 7021-8 ####[facility] LABIA [id number] [place] [address] [place] Hemoglobin (Bld) [Mass/Vol] 12.3 g/dL Normal 11.5-15.5 [facility] Comment on above: Order Comment: Speci men Type: BLOOD SPECIMENOrdering Facility: [facility] Address: [address] [place] [address] Performed By: #### 5 7021-8 ####[facility] LABIA [id number] [place] [address] [place] Lymphocytes (Bld) [#/Vol] 3.07 10*3/uL Normal 1.00-4.00 [facility] Comment on above: Order Comment: Speci men Type: BLOOD SPECIMENOrdering Facility: [facility] Address: [address] [place] [address] Performed By: #### 5 7021-8 ####[facility] LABIA [id number] [place] [address] [place] Lymphocytes/100 WBC (Bld) 36.3 % Normal [facility] Comment on above: Order Comment: Speci men Type: BLOOD SPECIMENOrdering Facility: [facility] Address: [address] [place] [address] Performed By: #### 5 7021-8 ####[facility] LABIA [id number] [place] [address] [place] MCH (RBC) [Entitic mass] 30.6 pg Normal 26.0-34.0 [facility] Comment on above: Order Comment: Speci men Type: BLOOD SPECIMENOrdering Facility: [facility] Address: [address] [place] [address] Performed By: #### 5 7021-8 ####[facility] LABIA [id number] [place] [id number] [place] MCHC (RBC) [Mass/Vol] 33.4 g/dL Normal 30.5-36.0 [facility] Comment on above: Order Comment: Speci men Type: BLOOD SPECIMENOrdering Facility: [facility] Address: [address] [place] [address] Performed By: #### 5 7021-8 ####[facility] LABCLIA [id number] [place] [address] [place] MCV (RBC) [Entitic vol] 91.5 fL Normal 80.0-100.0 [facility] Comment on above: Order Comment: Speci men Type: BLOOD SPECIMENOrdering Facility: [facility] Address: [address] [place] [address] Performed By: #### 5 7021-8 ####[facility] LABCLIA [id number] [place] [address] [place] Monocytes (Bld) [#/Vol] 0.52 10*3/uL Normal <0.87 [facility] Comment on above: Order Comment: Speci men Type: BLOOD SPECIMENOrdering Facility: [facility] Address: [address] [place] [address] Performed By: #### 5 7021-8 ####[facility] LABIA [id number] [place] [address] [place] Monocytes/100 WBC (Bld) 6.2 % Normal [facility] Comment on above: Order Comment: Speci men Type: BLOOD SPECIMENOrdering Facility: [facility] Address: [address] [place] [address] Performed By: #### 5 7021-8 ####[facility] LABCLIA [id number] [place] [address] [place] Neutrophils (Bld) [#/Vol] 4.27 10*3/uL Normal 1.45-7.50 [facility] Comment on above: Order Comment: Speci men Type: BLOOD SPECIMENOrdering Facility: [facility] Address: [address] [place] [address] Performed By: #### 5 7021-8 ####[facility] LABCLIA [id number] [place] [address] [place] Neutrophils/100 WBC (Bld) 50.5 % Normal [facility] Comment on above: Order Comment: Speci men Type: BLOOD SPECIMENOrdering Facility: [facility] Address: [address] [place] [address] Performed By: #### 5 7021-8 ####[facility] LABCLIA [id number] [place] [address] [place] Nucleated RBC (Bld) [#/Vol] 10*3/uL Normal <0.01 [facility] Comment on above: Order Comment: Speci men Type: BLOOD SPECIMENOrdering Facility: [facility] Address: [address] [place] [address] Performed By: #### 5 7021-8 ####[facility] LABCLIA [id number] [place] [address] [place] Nucleated RBC/100 WBC (Bld) [Ratio] 0.0 /100 WBC Normal [facility] Comment on above: Order Comment: Speci men Type: BLOOD SPECIMENOrdering Facility: [facility] Address: [address] [place] [address] Performed By: #### 5 7021-8 ####[facility] LABCLIA [id number] [place] [address] [place] Platelet mean volume (Bld) [Entitic vol] 10.0 fL Normal 9.0-12.7 [facility] Comment on above: Order Comment: Speci men Type: BLOOD SPECIMENOrdering Facility: [facility] Address: [address] [place] [address] Performed By: #### 5 7021-8 ####[facility] LABCLIA [id number] [place] [address] [place] Platelets (Bld) [#/Vol] 342 10*3/uL Normal 150-400 [facility] Comment on above: Order Comment: Speci men Type: BLOOD SPECIMENOrdering Facility: [facility] Address: [address] [place] [address] Performed By: #### 5 7021-8 ####[facility] LABIA [id number] [place] [address] [place] Platelets Estimate (Bld) [#/Vol] Adequate Normal [facility] Comment on above: Order Comment: Speci men Type: BLOOD SPECIMENOrdering Facility: [facility] Address: [address] [place] [address] Performed By: #### 5 7021-8 ####[facility]IA [id number] [place] [address] [place] RBC (Bld) [#/Vol] 4.02 10*6/uL Normal 3.90-5.20 [facility] Comment on above: Order Comment: Speci men Type: BLOOD SPECIMENOrdering Facility: [facility] Address: [address] [place] [address] Performed By: #### 5 7021-8 ####[facility] LABIA [id number] [place] [address] [place] RED CELL MORPH Reviewed: see result s of individual morphologies Normal [facility] Comment on above: Order Comment: Speci men Type: BLOOD SPECIMENOrdering Facility: [facility] Address: [address] [place] [address] Performed By: #### 5 7021-8 ####[facility] LABIA [id number] [place] [address] [place] Target cells LM Ql (Bld) Few Normal [facility] Comment on above: Order Comment: Speci men Type: BLOOD SPECIMENOrdering Facility: [facility] Address: [address] [place] [address] Performed By: #### 5 7021-8 ####[facility] LABIA [id number] [place] [address] [place] WBC (Bld) [#/Vol] 8.45 10*3/uL Normal 3.70-11.00 [facility] Comment on above: Order Comment: Speci men Type: BLOOD SPECIMENOrdering Facility: [facility] Address: [address] [place] [address] Performed By: #### 5 7021-8 ####[facility] [id number] [place] [address] [place] [facility] CRP [Mass/Vol] 0.5 mg/dL Normal <0.9 [facility] Comment on above: Order Comment: Speci men Type: BLOOD SPECIMENOrdering Facility: [facility] Address: [address] [place] [address] Performed By: #### 1 988-5, 3084-1, 45171-1 ####[facility] [id number] [address] [place] ED NOTEon 05-04-2024 ED NOTE HNO ID: [id number] Author: GURPREET LIMA RN Service: Emergency Medicine [...] May 05, 2024 TIME: 4:16 PM Normal [facility] ED NOTE HNO ID: [id number] Author: THI CAREY LPN Service: Emergency Medicine Author Type: LICENSED NURSE Type: ED Notes Filed: 05/04/2024 15:00 Note Text: Lisa wrap applied to the left knee. Patient remains hemodynamically stable with no complaints at this time. 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 Patient [...] AND DIFFERE (more content not included)... Normal [facility] ED Triage Noteon 05-04-2024 ED Triage Note HNO ID: [id number] Author: JAYME VENCES MD Service: Emergency Medicine [...] Uric Acid SIGNATURE: Jayme Vences MD Normal [facility] Urate SerPl-mCncon 4 Urate [Mass/Vol] 4.5 mg/dL Normal 2.5-6.6 [facility] Comment on above: Order Comment: Speci men Type: BLOOD SPECIMENOrdering Facility: [facility] Address: [address] [place] [address] Performed By: #### 1 988-5, 3084-1, 34993-9 ####[facility] LABCLIA [id number] [facility] [place] [address] [place] XR KNEE 2V [...] bony erosions. IMPRESSION: No acute osseous findings. Information Analyst: PSCB Transcribe Date/Time: May 04 2024 1:59P Dictated by : LENIN LEBLANC MD This examination was interpreted and the report reviewed and electronically signed by: LENIN LEBLANC MD on May 04 2024 2:00PM EST [id number] Normal [facility] Bacteria identifiedon 2023 Bacteria identified Cx Nom (Bld) Test: Blood Culture Specimen Source: Peripheral Venipuncture Specimen Type: Blood culture Specimen Date: 03/23/20241849 Result Date: 03/27/20242300 Result Status: Final result Abnormal: No Resulting Lab: [facility] [address] [place] [address] CULTURE No growth at 4 days - FINAL REPORT Normal [facility] Comment on above: Performed By: #### 6 00-7 #### JUANA Hall ([id number]) [facility] ([facility]) [address] [place] [address] Performed By: #### 5 7021-8 #### OPAL Dodson ([id number]) [facility] () [id number] [place] [address] CBC W Auto Differential pane l (Bld)on 03-23-2024 Basophils (Bld) [#/Vol] 0.06 10*3/uL [facility] Basophils/100 WBC (Bld) 0.3 % 0.0 - 2.0 % [facility] Eosinophils (Bld) [#/Vol] 0.05 10*3/uL [facility] Eosinophils/100 WBC (Bld) 0.2 % 0.0 - 6.0 % [facility] Erythrocyte distribution width (RBC) [Ratio] 14.7 % High 11.5 - 14.5 % [facility] Hematocrit (Bld) [Volume fraction] 33.7 % Low 36.0 - 46.0 % [facility] Hemoglobin (Bld) [Mass/Vol] 11.3 g/dL Low 12.0 - 16.0 g/dL [facility] Immature granulocytes (Bld) [#/Vol] 0.23 10*3/uL [facility] Immature granulocytes/100 WBC (Bld) 1.1 % High 0.0 - 0.9 % [facility] Comment on above: Immature Granulocyte Count (IG) includes promyelocytes, myelocytes and metamyelocytes but does not include bands. Percent differential counts (%) should be interpreted in the context of the absolute cell counts (cells/UL). Interpretation and review of laboratory results Abnormal [facility] Lymphocytes (Bld) [#/Vol] 1.87 10*3/uL [facility] Lymphocytes/100 WBC (Bld) 9.1 % 13.0 - 44.0 % [facility] MCH (RBC) [Entitic mass] 31.5 pg 26.0 - 34.0 pg [facility] MCHC (RBC) [Mass/Vol] 33.5 g/dL 32.0 - 36.0 g/dL [facility] MCV (RBC) [Entitic vol] 94 fL 80 - 100 fL [facility] Monocytes (Bld) [#/Vol] 1.53 10*3/uL High [facility] Monocytes/100 WBC (Bld) 7.5 % 2.0 - 10.0 % [facility] Neutrophils (Bld) [#/Vol] 16.74 10*3/uL High [facility] Comment on above: Percent differential counts (%) should be interpreted in the context of the absolute cell counts (cells/uL). Neutrophils/100 WBC (Bld) 81.8 % 40.0 - 80.0 % [facility] Nucleated RBC/100 WBC (Bld) [Ratio] 0.0 % [facility] Platelets (Bld) [#/Vol] 438 10*3/uL [facility] RBC (Bld) [#/Vol] 3.59 10*6/uL Low [facility] WBC (Bld) [#/Vol] 20.5 10*3/uL High [facility] Basophils (Bld) [#/Vol] 0.06 x10*3/uL Normal 0.00-0.10 [facility] Comment on above: Performed By: #### 5 7021-8 #### OPAL Dodson ([id number]) [facility] () [address] [place] [address] Basophils/100 WBC (Bld) 0.3 % Normal 0.0-2.0 [facility] Comment on above: Performed By: #### 5 7021-8 #### OPAL Dodson ([id number]) [facility] () [address] [place] [address] Eosinophils (Bld) [#/Vol] 0.05 x10*3/uL Normal 0.00-0.70 [facility] Comment on above: Performed By: #### 5 7021-8 #### OPAL Dodson ([id number]) [facility] () [address] [place] [address] Eosinophils/100 WBC (Bld) 0.2 % Normal 0.0-6.0 [facility] Comment on above: Performed By: #### 5 7021-8 #### OPAL Dodson ([id number]) [facility] () [address] [place] [address] Erythrocyte distribution width (RBC) [Ratio] 14.7 % High 11.5-14.5 [facility] Comment on above: Performed By: #### 5 7021-8 #### OPAL Dodson ([id number]) [facility] () [address] [place] [address] Hematocrit (Bld) [Volume fraction] 33.7 % Low 36.0-46.0 [facility] Comment on above: Performed By: #### 5 7021-8 #### OPAL Dodson ([id number]) [facility] () [address] [place] [address] Hemoglobin (Bld) [Mass/Vol] 11.3 g/dL Low 12.0-16.0 [facility] Comment on above: Performed By: #### 5 7021-8 #### OPAL Dodson ([id number]) [facility] () [address] [place] [address] Immature granulocytes (Bld) [#/Vol] 0.23 x10*3/uL Normal 0.00-0.70 [facility] Comment on above: Performed By: #### 5 7021-8 #### OPAL Dodson ([id number]) [facility] () [address] [place] [address] Immature granulocytes/100 WBC (Bld) 1.1 % High 0.0-0.9 [facility] Comment on above: Result Comment: Dipti ture Granulocyte Count (IG) includes promyelocytes, myelocytes and metamyelocytes but does not include bands. Percent differential counts (%) should be interpreted in the context of the absolute cell counts (cells/UL). Performed By: #### 5 7021-8 #### OPAL Dodson ([id number]) [facility] () [address] [place] [address] Lymphocytes (Bld) [#/Vol] 1.87 x10*3/uL Normal 1.20-4.80 [facility] Comment on above: Performed By: #### 5 7021-8 #### OPAL Dodson ([id number]) [facility] () [address] [place] [address] Lymphocytes/100 WBC (Bld) 9.1 % Normal 13.0-44.0 [facility] Comment on above: Performed By: #### 5 7021-8 #### OPAL Dodson ([id number]) [facility] () [address] [place] [address] MCH (RBC) [Entitic mass] 31.5 pg Normal 26.0-34.0 [facility] Comment on above: Performed By: #### 5 7021-8 #### OPAL Dodson ([id number]) [facility] () [address] [place] [address] MCHC (RBC) [Mass/Vol] 33.5 g/dL Normal 32.0-36.[address] [facility] Comment on above: Performed By: #### 5 7021-8 #### OPAL Dodson ([id number]) [facility] () [address] [place] [address] MCV (RBC) [Entitic vol] 94 fL Normal 80-100 [facility] Comment on above: Performed By: #### 5 7021-8 #### OPAL Dodson ([id number]) [facility] () [address] [place] [address] Monocytes (Bld) [#/Vol] 1.53 x10*3/uL High 0.10-1.00 [facility] Comment on above: Performed By: #### 5 7021-8 #### OPAL Dodson ([id number]) [facility] () [address] [place] [address] Monocytes/100 WBC (Bld) 7.5 % Normal 2.0-10.0 [facility] Comment on above: Performed By: #### 5 7021-8 #### OAPL Dodson ([id number]) [facility] () [address] [place] [address] Neutrophils (Bld) [#/Vol] 16.74 x10*3/uL High 1.20-7.70 [facility] Comment on above: Result Comment: Perc ent differential counts (%) should be interpreted in the context of the absolute cell counts (cells/uL). Performed By: #### 5 7021-8 #### OPAL Dodson ([id number]) [facility] () [address] [place] [address] Neutrophils/100 WBC (Bld) 81.8 % Normal 40.0-80.0 [facility] Comment on above: Performed By: #### 5 7021-8 #### OPAL Dodson ([id number]) [facility] () [address] [place] [address] Nucleated RBC/100 WBC (Bld) [Ratio] 0.0 /100 WBCs Normal 0.0-0.0 [facility] Comment on above: Performed By: #### 5 7021-8 #### OPAL Dodson ([id number]) [facility] () [address] [place] [address] Platelets (Bld) [#/Vol] 438 x10*3/uL Normal 150-450 [facility] Comment on above: Performed By: #### 5 7021-8 #### OPAL Dodson ([id number]) [facility] () [address] [place] [address] RBC (Bld) [#/Vol] 3.59 x10*6/uL Low 4.00-5.20 [facility] Comment on above: Performed By: #### 5 7021-8 #### OPAL Dodson ([id number]) [facility] () [address] [place] [address] WBC (Bld) [#/Vol] 20.5 x10*3/uL High 4.4-11.3 [facility] Comment on above: Performed By: #### 5 7021-8 #### OPAL PRESLEY T ([id number]) [facility] () [address] [place] [address] CT ABDOMEN PELVIS W IV CONTR Jose Antonio 03-23-2024 CT ABDOMEN PELVIS W IV CONTRAST Interpreted By: Jose Kelly, STUDY: CT ABDOMEN PELVIS W IV CONTRAST; 03/23/2024 10:36 pm INDICATION: Signs/Symptoms:abnormal LFTs. COMPARISON: None. ACCESSION NUMBER(S): [id number] ORDERING CLINICIAN: PETER SUE TECHNIQUE: CT of [...] Jose Kelly 03/23/2024 10:40 PM Dictation workstation: [id number] [facility] CT Abdomen and Pelvis W cont rast Aysha 03-23-2024 1. There is a region of confluent consolidation noted in the right lung base concerning for pneumonia. MACRO: None Signed by: Jose Kelly 03/23/2024 10:40 PM Dictation workstation: [id number] [facility] Interpreted By: Jose Duenas, STUDY: CT ABDOMEN PELVIS W IV CONTRAST; 03/23/2024 10:36 pm INDICATION: Signs/Symptoms:abnormal LFTs. COMPARISON: None. ACCESSION NUMBER(S): [id number] ORDERING CLINICIAN: PETER SUE TECHNIQUE: CT of [...] The abdominal wall soft tissues appear normal. [facility] Jose Kelly MD - 03/23/2024 Interpreted By: Jose Kelly, STUDY: CT ABDOMEN PELVIS W IV CONTRAST; 03/23/2024 10:36 pm INDICATION: Signs/Symptoms:abnormal LFTs. COMPARISON: None. ACCESSION NUMBER(S): [id number] ORDERING CLINICIAN: PETER SUE TECHNIQUE: CT of [...] Jose Kelly 03/23/2024 10:40 PM Dictation workstation: [id number] [facility] Work Phone: [facility] Work Phone: Radiology Study observation (narrative) [facility] Work Phone: Comprehensive metabolic 2000 panelon 03-23-2024 Albumin BCP dye [Mass/Vol] 3.8 g/dL 3.4 - 5.0 g/dL [facility] ALP [Catalytic activity/Vol] 215 U/L High 33 - 110 U/L [facility] ALT With P-5'-P [Catalytic activity/Vol] 55 U/L High 7 - 45 U/L [facility] Comment on above: Patients treated wit h Sulfasalazine may generate falsely decreased results for ALT. Anion gap [Moles/Vol] 16 mmol/L 10 - 2 0 mmol/L [facility] AST With P-5'-P [Catalytic activity/Vol] 69 U/L High 9 - 39 U/L [facility] Bilirubin [Mass/Vol] 1.7 mg/dL High 0.0 - 1 .2 mg/dL [facility] Calcium [Mass/Vol] 9.1 mg/dL 8.6 - 10. 3 mg/dL [facility] Chloride [Moles/Vol] 105 mmol/L 98 - 10 7 mmol/L [facility] CO2 [Moles/Vol] 17 mmol/L Low 21 - 32 mmol/L [facility] Creatinine [Mass/Vol] 1.02 mg/dL 0.50 - 1.05 mg/dL [facility] GFR/1.73 sq M.predicted among non-blacks MDRD (S/P/Bld) [Vol rate/Area] 64 mL/min/{1.73_m2} - PINF [facility] Comment on above: Calculations of doyle mated GFR are performed using the 2020 CKD-EPI Study Refit equation without the race variable for the IDMS-Traceable creatinine methods. https://jasn.asnjournals.org/content//ASN.2020 297730 Glucose [Mass/Vol] 118 mg/dL High 74 - 99 mg/dL [facility] Interpretation and review of laboratory results Abnormal [facility] Potassium [Moles/Vol] 3.6 mmol/L 3.5 - 5.3 mmol/L [facility] Protein [Mass/Vol] 7.9 g/dL 6.4 - 8.2 g/dL [facility] Sodium [Moles/Vol] 134 mmol/L Low 136 - 145 mmol/L [facility] Urea nitrogen [Mass/Vol] 24 mg/dL High 6 - 23 mg/dL [facility] Albumin BCP dye [Mass/Vol] 3.8 g/dL Normal 3.4-5.0 [facility] Comment on above: Performed By: #### 2 4323-8 #### OPAL Dodson ([id number]) [facility] () [address] [place] [address] ALP [Catalytic activity/Vol] 215 U/L High 33-110 [facility] Comment on above: Performed By: #### 2 4323-8 #### OPAL Dodson ([id number]) [facility] () [address] [place] [address] ALT With P-5'-P [Catalytic activity/Vol] 55 U/L High 7-45 [facility] Comment on above: Result Comment: Shweta ents treated with Sulfasalazine may generate falsely decreased results for ALT. Performed By: #### 2 4323-8 #### OPAL Dodson ([id number]) [facility] () [address] [place] [address] Anion gap [Moles/Vol] 16 mmol/L Normal 10-20 [facility] Comment on above: Performed By: #### 2 4323-8 #### OPAL Dodson ([id number]) [facility] () [address] [place] [address] AST With P-5'-P [Catalytic activity/Vol] 69 U/L High 9-39 [facility] Comment on above: Performed By: #### 2 4323-8 #### OPAL Dodson ([id number]) [facility] () [address] [place] [address] Bilirubin [Mass/Vol] 1.7 mg/dL High 0.0-1.2 [facility] Comment on above: Performed By: #### 2 4323-8 #### OPAL Dodson ([id number]) [facility] () [address] [place] [address] Calcium [Mass/Vol] 9.1 mg/dL Normal 8.6-10.3 [facility] Comment on above: Performed By: #### 2 4323-8 #### OPAL Dodson ([id number]) [facility] () [address] [place] [address] Chloride [Moles/Vol] 105 mmol/L Normal 98-107 [facility] Comment on above: Performed By: #### 2 4323-8 #### OPAL Dodson ([id number]) [facility] () [address] [place] [address] CO2 [Moles/Vol] 17 mmol/L Low 21-32 [facility] Comment on above: Performed By: #### 2 4323-8 #### OPAL Dodson ([id number]) [facility] () [address] [place] [address] Creatinine [Mass/Vol] 1.02 mg/dL Normal 0.50-1.[address] [facility] Comment on above: Performed By: #### 2 4323-8 #### OPAL Dodson ([id number]) [facility] () [address] [place] [address] Glomerular filtration rate/1.73 sq M.predicted 64 mL/min/1.73m*2 Normal >60 [facility] Comment on above: Result Comment: Calc ulations of estimated GFR are performed using the 2020 CKD-EPI Study Refit equation without the race variable for the IDMS-Traceable creatinine methods. https://jasn.asnjournals.org/content/early/ASN.2020 082020 Performed By: #### 2 4323-8 #### OPAL Dodson ([id number]) [facility] () [address] [place] [address] Glucose [Mass/Vol] 118 mg/dL High 74-99 [facility] Comment on above: Performed By: #### 2 4323-8 #### OPAL Dodson ([id number]) [facility] () [address] [place] [address] Potassium [Moles/Vol] 3.6 mmol/L Normal 3.5-5.[address] [facility] Comment on above: Performed By: #### 2 4323-8 #### OPAL Dodson ([id number]) [facility] () [address] [place] [address] Protein [Mass/Vol] 7.9 g/dL Normal 6.4-8.2 [facility] Comment on above: Performed By: #### 2 4323-8 #### OPAL Dodson ([id number]) [facility] () [address] [place] [address] Sodium [Moles/Vol] 134 mmol/L Low 136-145 [facility] Comment on above: Performed By: #### 2 4323-8 #### OPAL Dodson ([id number]) [facility] () [address] [place] [address] Urea nitrogen [Mass/Vol] 24 mg/dL High 6-23 [facility] Comment on above: Performed By: #### 2 4323-8 #### OPAL Dodson ([id number]) [facility] (MW) [address] [place] [address] ECG 12-LEADon 03-23-2024 ECG 12-LEAD Ventricular Rate 111 Atrial Rate 111 P-R Interval 158 QRS Duration 92 Q-T Interval 342 QTC Calculation(Bazett) 465 P Halifax 69 R Halifax 41 T Halifax 67 QRS Count 18 Q Onset 225 P Onset 146 P Offset 202 T Offset 396 QTC Fredericia 420 Diagnosis Sinus tachycardia Biatrial enlargement Abnormal ECG Confirmed by Jaron Norman ([id number]) on 03/25/2024 9:15:36 AM Normal [facility] FLUAV and FLUBV RNA GINETTE+prob e Nom (Unsp spec)on 03-23-2024 FLUAV RNA GINETTE+probe Ql (Resp) Not detected Not Detected [facility] FLUBV RNA GINETTE+probe Ql (Resp) Not detected Not Detected [facility] Interpretation and review of laboratory results Normal [facility] This assay is an in vitro diagnostic multiplex nucleic acid amplification test for the detection and discrimination of Influenza A & B from nasopharyngeal specimens, and has been validated for use at [facility]. Negative results do not preclude Influenza A/B infections, and should not be used as the sole basis for diagnosis, treatment, or other management decisions. If Influenza A/B and RSV PCR results are negative, testing for Parainfluenza virus, Adenovirus and Metapneumovirus is routinely performed for [facility] pediatric oncology and intensive care inpatients, and is available on other patients by placing an add-on request. [facility] FLUAV RNA GINETTE+probe Ql (Resp) Not detected Normal Not Detected [facility] Comment on above: Order Comment: This assay is an in vitro diagnostic multiplex nucleic acid amplification test for the detection and discrimination of Influenza A & B from nasopharyngeal specimens, and has been validated for use at [facility]. Negative results do not preclude Influenza A/B infections, and should not be used as the sole basis for diagnosis, treatment, or other management decisions. If Influenza A/B and RSV PCR results are negative, testing for Parainfluenza virus, Adenovirus and Metapneumovirus is routinely performed for [facility] pediatric oncology and intensive care inpatients, and is available on other patients by placing an add-on request. Performed By: #### 4 8509-4 #### OPAL Dodson ([id number]) [facility] () [address] [place] [address] FLUBV RNA GINETTE+probe Ql (Resp) Not detected Normal Not Detected [facility] Comment on above: Order Comment: This assay is an in vitro diagnostic multiplex nucleic acid amplification test for the detection and discrimination of Influenza A & B from nasopharyngeal specimens, and has been validated for use at [facility]. Negative results do not preclude Influenza A/B infections, and should not be used as the sole basis for diagnosis, treatment, or other management decisions. If Influenza A/B and RSV PCR results are negative, testing for Parainfluenza virus, Adenovirus and Metapneumovirus is routinely performed for [facility] pediatric oncology and intensive care inpatients, and is available on other patients by placing an add-on request. Performed By: #### 4 8509-4 #### OPAL Dodson ([id number]) [facility] () [address] [place] [address] Natriuretic peptide B [Mass/ Vol]on 03-23-2024 Interpretation and review of laboratory results Normal [facility] Natriuretic peptide B (Bld) [Mass/Vol] 49 pg/mL 0 - 99 pg/mL [facility] <100 pg/mL - Heart f ailure unlikely 100-299 pg/mL - Intermediate probability of acute heart failure exacerbation. Correlate with clinical context and patient history. >=300 pg/mL - Heart Failure likely. Correlate with clinical context and patient history. BNP testing is performed using different testing methodology at [facility] than at other [facility]. Direct result comparisons should only be made within the same method. [facility] Natriuretic peptide B (Bld) [Mass/Vol] 49 pg/mL Normal 0-99 [facility] Comment on above: Order Comment: <100 pg/mL - Heart failure unlikely 100-299 pg/mL - Intermediate probability of acute heart failure exacerbation. Correlate with clinical context and patient history. >=300 pg/mL - Heart Failure likely. Correlate with clinical context and patient history. BNP testing is performed using different testing methodology at [facility] than at other [facility]. Direct result comparisons should only be made within the same method. Performed By: #### 3 0934-4 #### OPAL Dodson ([id number]) [facility] () [address] [place] [address] No Panel Informationon 03-23 [facility] SARS coronavirus 2 RNAon SARS-CoV-2 (COVID-19) RNA GINETTE+probe Ql (Resp) Detected Abnormal Not Detected [facility] Comment on above: Order Comment: This assay [...] and has been validated for use at [facility]. Negative results do not preclude COVID-19 infections and should not be used as the sole basis for diagnosis, treatment, or other management decisions. Performed By: #### 9 4500-6 #### OPAL Dodson ([id number]) [facility] () [address] [place] [address] SARS-CoV-2 (COVID-19) RNA NA A+probe Ql (Resp)on 03-23-2024 Interpretation and review of laboratory results Abnormal [facility] This assay has recei esther FDA Emergency [...] and has been validated for use at [facility]. Negative results do not preclude COVID-19 infections and should not be used as the sole basis for diagnosis, treatment, or other management decisions. [facility] Sars-CoV-2 PCRon 03-23-2024 SARS-CoV-2 (COVID-19) RNA GINETTE+probe Ql (Resp) Detected Abnormal Not Detected [facility] Tropinin I.cardiac panel Hig h sensitivity methodon 03-23-2024 Interpretation and review of laboratory results Normal [facility] Less than 99th perce ntile of normal [...] performed using a different testing methodology at [facility] than at [facility]. Direct result comparisons should only be made within the same method. [facility] Interpretation and review of laboratory results Normal [facility] Less than 99th perce ntile of normal [...] performed using a different testing methodology at [facility] than at [facility]. Direct result comparisons should only be made within the same method. [facility] Troponin I, High Sensitivity , Initialon 03-23-2024 Tropinin I.cardiac panel High sensitivity method 3 ng/L 0 - 13 ng/L [facility] Troponin I.cardiac panelon 0 9-24-2024 Tropinin I.cardiac panel High sensitivity method 3 ng/L Normal 0-13 [facility] Comment on above: Order Comment: Less than [...] performed using a different testing methodology at [facility] than at [facility]. Direct result comparisons should only be made within the same method. Performed By: #### 8 9577-1 #### OPAL Dodson ([id number]) [facility] () [address] [place] [address] Tropinin I.cardiac panel High sensitivity method 3 ng/L Normal 0-13 [facility] Comment on above: Order Comment: Less than [...] performed using a different testing methodology at [facility] than at other [facility]. Direct result comparisons should only be made within the same method. Performed By: #### 8 [id number] #### OPAL Dodson ([id number]) [facility] () [address] [place] [address] Troponin, High Sensitivity, 1 Houron 03-23-2024 Tropinin I.cardiac panel High sensitivity method 3 ng/L 0 - 13 ng/L [facility] XR CHEST 2 VIEWSon 4 XR CHEST 2 VIEWS Interpreted By: Jose Duenas, STUDY: XR CHEST 2 VIEWS; 03/23/2024 6:07 pm INDICATION: Signs/Symptoms:productive cough, eval for pneumonia. COMPARISON: None. ACCESSION NUMBER(S): [id number] ORDERING CLINICIAN: PETER SUE FINDINGS: PA and [...] Jose Kelly 03/23/2024 6:09 PM Dictation workstation: [id number] [facility] XR Chest 2 Viewson 4 1. There is a region of airspace consolidation noted in the right upper lung concerning for pneumonia. MACRO: None Signed by: Jose Kelly 03/23/2024 6:09 PM Dictation workstation: [id number] [facility] Interpreted By: Joes Duenas, STUDY: XR CHEST 2 VIEWS; 03/23/2024 6:07 pm INDICATION: Signs/Symptoms:productive cough, eval for pneumonia. COMPARISON: None. ACCESSION NUMBER(S): [id number] ORDERING CLINICIAN: PETER SUE FINDINGS: PA and lateral radiographs of the chest were provided. CARDIOMEDIASTINAL SILHOUETTE: Cardiomediastinal silhouette is normal in size and configuration. LUNGS: There is a region of airspace consolidation noted in the right upper lung concerning for pneumonia. ABDOMEN: No remarkable upper abdominal findings. BONES: No acute osseous changes. [facility] Jose Kelly MD - 03/23/2024 Interpreted By: Jose Kelly, STUDY: XR CHEST 2 VIEWS; 03/23/2024 6:07 pm INDICATION: Signs/Symptoms:productive cough, eval for pneumonia. COMPARISON: None. ACCESSION NUMBER(S): [id number] ORDERING CLINICIAN: PETER SUE FINDINGS: PA and [...] Jose Kelly 03/23/2024 6:09 PM Dictation workstation: [id number] [facility] Work Phone: Radiology Study observation (narrative) [facility] Work Phone: XR Chest 2 ViewsOrdered By: Jose Kelly on 03-23-2024 [facility] Work Phone: ED NOTEon 03-19-2024 ED NOTE HNO ID: [id number] Author: DIDIER CASTILLO RN Service: ? Author Type: Registered Nurse Type: ED Notes Filed: 03/19/2024 06:50 Note Text: Ashanti from [facility] called and stated that transportation was set up for the patient and the ETA was between 0700 - 0730. Patient is sitting in the waiting room until arrival. [facility] ED NOTE HNO ID: [id number] Author: DIDIER CASTILLO RN Service: ? Author Type: Registered Nurse Type: ED Notes Filed: 03/19/2024 06:38 Note Text: Patient discharged. Nurse reviewed d/c paperwork and reviewed d/c medications. Patient instructed to follow up with PCP. Nurse answered any questions. Patient verbally agreed. Patient AANDOx3, VSS on RA. Patient stable upon departure. [facility] ED NOTE HNO ID: [id number] Author: DIDIER CASTILLO RN Service: ? Author Type: Registered Nurse Type: ED Notes Filed: 03/19/2024 06:27 Note Text: This RN spoke with [facility] to set up transportation for the patient. [facility] ED NOTE HNO ID: [id number] Author: DIDIER CASTILLO RN Service: ? Author Type: Registered Nurse Type: ED Notes Filed: 03/19/2024 04:24 Note Text: Pt was BIB EMS from [facility] for c/o flu-like symptoms. Pt states that she has been experiencing chills and a slight cough. Pt is AANDO x 3, with VSS on RA. [facility] ED NOTE HNO ID: [id number] Author: LENIN ECKERT RN Service: ? Author Type: Registered Nurse Type: ED Notes Filed: 03/19/2024 04:18 Note Text: Bed: ED-11 Expected date: 03/19/24 Expected time: 4:07 AM Means of arrival: [place] [facility] ([place]) Comments: [facility] ED PROV NOTEon 03-19-2024 ED PROV NOTE HNO ID: [id number] Author: NILDA MENDES DO Service: Emergency Medicine [...] DO Brad Perez ABRAHAM 03/21/24 0033 Normal [facility] Automated basophil %Ordered By: Rishi Abel on 01-29-2024 Basophils/100 WBC (Bld) 1.1 % Normal . [facility] Comment on above: Performed By: #### B IOFIRECOVNOTDE, RESP PANEL UPP. #### [address] Automated basophil countOrde red By: Rishi Abel on 01-29-2024 Basophils (Bld) [#/Vol] 0.2 10*3/uL Normal 0.0-0.2 [facility] Comment on above: Result Comment: PERF ORMED BY: [facility] [address] [place] [address] PATHOLOGIST BEAM DYER RECESSED VAT DAYANA MONTES M.D. Performed By: #### B IOFIRECOVNOTDE, RESP PANEL UPP. #### [facility] [address] Automated blood monocyte cou ntOrdered By: Rishi Abel on 01-29-2024 Monocytes (Bld) [#/Vol] 1.1 10*3/uL High 0.0-0.8 [facility] Comment on above: Performed By: #### B IOFIRECOVNOTDE, RESP PANEL UPP. #### [address] Automated eosinophil %Ordere d By: Rishi Abel on 01-29-2024 Eosinophils/100 WBC (Bld) 0.6 % Normal . [facility] Comment on above: Performed By: #### B IOFIRECOVNOTDE, RESP PANEL UPP. #### [address] Automated eosinophil countOr dered By: Rishi Abel on 01-29-2024 Eosinophils (Bld) [#/Vol] 0.1 10*3/uL Normal 0.0-0.45 [facility] Comment on above: Performed By: #### B IOFIRECOVNOTDE, RESP PANEL UPP. #### [address] Automated monocyte %Ordered By: Rishi Abel on 01-29-2024 Monocytes/100 WBC (Bld) 7.0 % Normal . [facility] Comment on above: Performed By: #### B IOFIRECOVNOTDE, RESP PANEL UPP. #### [address] Automated neutrophil %Ordere d By: Rishi Abel on 01-29-2024 Neutrophils/100 WBC (Bld) 61.5 % Normal . [facility] Comment on above: Performed By: #### B IOFIRECOVNOTDE, RESP PANEL UPP. #### [address] Basic Metabolic Panelon 08-0 Creatinine Clr Calc Pharmacy 74.90 Normal [facility] Comment on above: Result Comment: PERF ORMED BY: [address] [place] [address] PATHOLOGIST BEAM DYER RECESSED VAT DAYANA MONTES M.D. Performed By: #### B IOFIRECOVNOTDE, RESP PANEL UPP. #### [address] GFR/1.73 sq M.predicted MDRD (S/P/Bld) [Vol rate/Area] mL/min/{1.73_m2} Normal [facility] Comment on above: Performed By: #### B IOFIRECOVNOTDE, RESP PANEL UPP. #### [address] abdomen pelvis w conon CT abdomen pelvis w con [facility] [place] [address] [place] [address] CT Scan Report Signed Patient: London Velasquez MR#: [id number] 345 : 1965 Acct:[id number] Age/Sex: 58 / F ADM Date: 01/29/24 Loc: ER Room: Type: [facility] ER Attending Dr: Copies to: Rishi Abel [...] Stephan Wilson M.D.01/29/2024 8:24 AM Dictation Location: [place] [address] Transcribed By: [facility] 01/29/24823 Dictated By: Stephan Wilson DO 01/29/24818 Signed By: 01/29/24823 Normal [facility] Calcium [Mass/volume] in Ser um or PlasmaOrdered By: Rishi Abel on 01-29-2024 Calcium [Mass/Vol] 9.1 mg/dL Normal 8.6-10.3 [facility] Comment on above: Performed By: #### B IOFIRECOVNOTDE, RESP PANEL UPP. #### [address] Carbon dioxide, total [Moles /volume] in Serum or PlasmaOrdered By: Rishi Abel on 01-29-2024 CO2 [Moles/Vol] 23.4 mmol/L Normal 21.0-31.0 [facility] Comment on above: Performed By: #### B IOFIRECOVNOTDE, RESP PANEL UPP. #### [address] Chloride [Moles/volume] in S lily or PlasmaOrdered By: Rishi Abel on 01-29-2024 Chloride [Moles/Vol] 106 mmol/L Normal 98-107 [facility] Comment on above: Performed By: #### B IOFIRECOVNOTDE, RESP PANEL UPP. #### [facility] [address] [place] [address] Complete Blood Count Auto Di ffon 01-29-2024 Mean Corpuscular HGB Conc 33.2 g/dL Normal 32.0-35.0 [facility] Comment on above: Performed By: #### B IOFIRECOVNOTDE, RESP PANEL UPP. #### [facility] [address] Monocytes/100 WBC (Bld) 16.46 % Normal 0.00-20.00 T marco antonio [facility] Comment on above: Performed By: #### B IOFIRECOVNOTDE, RESP PANEL UPP. #### [address] NRBC% 0.2 /100{WBC} Normal 0-0.5 [facility] Comment on above: Performed By: #### B IOFIRECOVNOTDE, RESP PANEL UPP. #### [address] Creatinine [Mass/volume] in Serum or PlasmaOrdered By: Rishi Abel on 01-29-2024 Creatinine [Mass/Vol] 0.93 mg/dL Normal 0.60-1.20 [facility] Comment on above: Performed By: #### B IOFIRECOVNOTDE, RESP PANEL UPP. #### [address] ECG 12 lead ECGon 01-29-2024 ECG 12 lead ECG [facility] [place] [address] [place] [address] Electrocardiograph Report Signed Patient: London Velasquez MR#: [id number] 345 : 1965 Acct:[id number] Age/Sex: 58 / F ADM Date: 01/29/24 Loc: ER Room: Type: [facility] ER Attending Dr: Ordering Provider: Rishi Abel [...] no longer present Confirmed by TAMIKA RUDD [facility], PITER ([id number]) on 01/30/2024 11:42:10 AM Referred By: Electronically Signed By: PITER LUNDBERG MD [facility] Transcribed By: MUS Signed By Piter Lundberg MD, [facility] 01/30/24 1142 Normal [facility] Erythrocyte distribution wid th [Ratio] by Automated countOrdered By: Rishi Abel on 01-29-2024 Erythrocyte distribution width (RBC) [Ratio] 15.1 % Normal 11.9-15.3 [facility] Comment on above: Performed By: #### B IOFIRECOVNOTDE, RESP PANEL UPP. #### [facility] [address] Erythrocytes [#/volume] in B lood by Automated countOrdered By: Rishi Abel on 01-29-2024 RBC (Bld) [#/Vol] 3.89 10*6/uL Normal 3.60-5.00 [facility] Comment on above: Performed By: #### B IOFIRECOVNOTDE, RESP PANEL UPP. #### [facility] [address] Glucose [Mass/volume] in Ser um or PlasmaOrdered By: Rishi Abel on 01-29-2024 Glucose [Mass/Vol] 124 mg/dL High 70-100 [facility] Comment on above: ADA recommended refe rence rangeRandom Glucose Reference Range is dependent on time and content of last meal. Glucose of more than 200 mg/dL in a nonstressed, ambulatory subject supports the diagnosis of Diabetes Mellitus. Result Comment: Reading om Glucose Reference Range is dependent on time and content of last meal. Glucose of more than 200 mg/dL in a nonstressed, ambulatory subject supports the diagnosis of Diabetes Mellitus. ADA recommended reference range Performed By: #### B IOFIRECOVNOTDE, RESP PANEL UPP. #### [facility] [address] Hematocrit [Volume Fraction] of Blood by Automated countOrdered By: Rishi Abel on 01-29-2024 Hematocrit (Bld) [Volume fraction] 36.9 % Normal 34.0-46.4 [facility] Comment on above: Performed By: #### B IOFIRECOVNOTDE, RESP PANEL UPP. #### [facility] [address] Hemoglobin [Mass/volume] in BloodOrdered By: Rishi Abel on 01-29-2024 Hemoglobin (Bld) [Mass/Vol] 12.3 g/dL Normal 11.8-15.4 [facility] Comment on above: Performed By: #### B IOFIRECOVNOTDE, RESP PANEL UPP. #### [facility] [address] Leukocytes [#/volume] correc alyse for nucleated erythrocytes in Blood by Automated counOrdered By: Rishi Abel on 01-29-2024 WBC corrected for nucl RBC Auto (Bld) [#/Vol] 15.8 10*3/uL High 3.8-11.6 [facility] Leukocytes [#/volume] in Blo od by Automated countOrdered By: Rishi Abel on 01-29-2024 WBC (Bld) [#/Vol] 15.8 10*3/uL High 3.8-11.6 [facility] Comment on above: Performed By: #### B IOFIRECOVNOTDE, RESP PANEL UPP. #### [address] Lymphocytes [#/volume] in Bl ood by Automated countOrdered By: Rishi Abel on 01-29-2024 Lymphocytes (Bld) [#/Vol] 4.7 10*3/uL Normal 1.00-4.8 [facility] Comment on above: Performed By: #### B IOFIRECOVNOTDE, RESP PANEL UPP. #### [facility] [address] [place] [address] [place] Lymphocytes/100 leukocytes i n Blood by Automated countOrdered By: Rishi Abel on 01-29-2024 Lymphocytes/100 WBC (Bld) 29.8 % Normal . [facility] Comment on above: Performed By: #### B IOFIRECOVNOTDE, RESP PANEL UPP. #### [facility] [address] [place] [address] [place] MCH [Entitic mass] by Automa alyse countOrdered By: Rishi Abel on 01-29-2024 MCH (RBC) [Entitic mass] 31.5 pg Normal 24.7-34.3 [facility] Comment on above: Performed By: #### B IOFIRECOVNOTDE, RESP PANEL UPP. #### [facility] [address] [place] [address] MCHC Auto (RBC) [Mass/Vol]Or dered By: Rishi Abel on 01-29-2024 MCHC (RBC) [Mass/Vol] 33.2 g/dL 32.0-35.0 [facility] MCV [Entitic volume] by Auto mated countOrdered By: Rishi Abel on 01-29-2024 MCV (RBC) [Entitic vol] 94.8 fL Normal 80-100 [facility] Comment on above: Performed By: #### B IOFIRECOVNOTDE, RESP PANEL UPP. #### [facility] [address] [place] [address] Monocyte distribution width [Entitic volume] in Blood by AutomatedOrdered By: Rishi Abel on 01-29-2024 Monocyte distribution width Auto (Bld) [Entitic vol] 16.46 % 0.00-20.00 [facility] Neutrophils [#/volume] in Bl ood by Automated countOrdered By: Rishi Abel on 01-29-2024 Neutrophils (Bld) [#/Vol] 9.7 10*3/uL High 1.8-7.7 [facility] Comment on above: Performed By: #### B IOFIRECOVNOTDE, RESP PANEL UPP. #### [facility] [address] [place] [address] No Panel InformationOrdered By: Rishi Abel on 01-29-2024 Estimated GFR (CKD-EPI) > 60.0 mL/Min [facility] Creatinine Clearance (Chem 74.90 [facility] Nucleated erythrocytes [Pres ence] in Blood by Automated countOrdered By: Rishi Abel on 01-29-2024 Nucleated RBC Auto Ql (Bld) 0.2 /100{WBC} 0-0.5 [facility] Platelet mean volume [Entiti c volume] in Blood by Automated countOrdered By: Rishi Abel on 01-29-2024 Platelet mean volume (Bld) [Entitic vol] 8.9 fL Normal 6.3-10.7 [facility] Comment on above: Performed By: #### B IOFIRECOVNOTDE, RESP PANEL UPP. #### [address] Platelets [#/volume] in Bloo d by Automated countOrdered By: Rishi Abel on 01-29-2024 Platelets (Bld) [#/Vol] 350 10*3/uL Normal 150-450 [facility] Comment on above: Performed By: #### B IOFIRECOVNOTDE, RESP PANEL UPP. #### [address] Potassium [Moles/volume] in Serum or PlasmaOrdered By: Rishi Abel on 01-29-2024 Potassium [Moles/Vol] 4.4 mmol/L Normal 3.5-5.1 [facility] Comment on above: Hemolysis is present at a level that could interfere with the result.Contact lab if redraw is required Result Comment: Hemo lysis is present at a level that could interfere with the result. Contact lab if redraw is required Performed By: #### B IOFIRECOVNOTDE, RESP PANEL UPP. #### [address] Serum or plasma anion gap de terminationOrdered By: Rishi Abel on 01-29-2024 Anion gap [Moles/Vol] 12.0 mmol/L Normal 6.0-15.0 [facility] Comment on above: Performed By: #### B IOFIRECOVNOTDE, RESP PANEL UPP. #### [place] [address] [place] Sodium [Moles/volume] in Ser um or PlasmaOrdered By: Rishi Abel on 01-29-2024 Sodium [Moles/Vol] 137 mmol/L Normal 136-145 [facility] Comment on above: Performed By: #### B IOFIRECOVNOTDE, RESP PANEL UPP. #### [facility] [address] [place] [address] [place] Urea nitrogen [Mass/volume] in Serum or PlasmaOrdered By: Rishi Abel on 01-29-2024 Urea nitrogen [Mass/Vol] 8 mg/dL Normal 7-25 [facility] Comment on above: Performed By: #### B IOFIRECOVNOTDE, RESP PANEL UPP. #### [facility] [address] [place] [address] [place] Alanine aminotransferase [En zymatic activity/volume] in Serum or PlasmaOrdered By: Anders Umana on 12-22-2023 ALT [Catalytic activity/Vol] 28 U/L Normal 7-52 [facility] Comment on above: Performed By: #### H SCRP, CK, CMP, CBC, FE and TIBC, LIPID #### [place] [address] [place] Albumin [Mass/volume] in Ser um or Plasma by Bromocresol green (BCG) dye binding methoOrdered By: Anders Umana on 12-22-2023 Albumin BCG dye [Mass/Vol] 4.2 g/dL 3.5-5.7 [facility] Alkaline phosphatase [Enzyma tic activity/volume] in Serum or PlasmaOrdered By: Anders Umana on 12-22-2023 ALP [Catalytic activity/Vol] 71 U/L Normal 34-104 [facility] Comment on above: Performed By: #### H SCRP, CK, CMP, CBC, FE and TIBC, LIPID #### [place] [address] [place] Aspartate aminotransferase [ Enzymatic activity/volume] in Serum or PlasmaOrdered By: Anders Umana on 12-22-2023 AST [Catalytic activity/Vol] 31 U/L Normal 13-39 [facility] Comment on above: Performed By: #### H SCRP, CK, CMP, CBC, FE and TIBC, LIPID #### [place] [address] [place] Automated basophil %Ordered By: Anders Umana on 12-22-2023 Basophils/100 WBC (Bld) 0.2 % Normal . [facility] Comment on above: Performed By: #### H SCRP, CK, CMP, CBC, FE and TIBC, LIPID #### [address] Automated basophil countOrde red By: Anders Umana on 12-22-2023 Basophils (Bld) [#/Vol] 0.0 10*3/uL Normal 0.0-0.2 [facility] Comment on above: Result Comment: PERF ORMED BY: [place] [address] PATHOLOGIST BEAM DYER RECESSED VAT DAYANA MONTES M.D. Performed By: #### H SCRP, CK, CMP, CBC, FE and TIBC, LIPID #### [address] Automated blood monocyte cou ntOrdered By: Anders Umana on 12-22-2023 Monocytes (Bld) [#/Vol] 0.6 10*3/uL Normal 0.0-0.8 [facility] Comment on above: Performed By: #### H SCRP, CK, CMP, CBC, FE and TIBC, LIPID #### [address] Automated eosinophil %Ordere d By: Anders Umana on 12-22-2023 Eosinophils/100 WBC (Bld) 1.9 % Normal . [facility] Comment on above: Performed By: #### H SCRP, CK, CMP, CBC, FE and TIBC, LIPID #### [address] Automated eosinophil countOr dered By: Anders Umana on 12-22-2023 Eosinophils (Bld) [#/Vol] 0.1 10*3/uL Normal 0.0-0.45 [facility] Comment on above: Performed By: #### H SCRP, CK, CMP, CBC, FE and TIBC, LIPID #### [address] Automated monocyte %Ordered By: Anders Umana on 12-22-2023 Monocytes/100 WBC (Bld) 7.7 % Normal . [facility] Comment on above: Performed By: #### H SCRP, CK, CMP, CBC, FE and TIBC, LIPID #### [facility] [address] Automated neutrophil %Ordere d By: Anders Umana on 12-22-2023 Neutrophils/100 WBC (Bld) 61.2 % Normal . [facility] Comment on above: Performed By: #### H SCRP, CK, CMP, CBC, FE and TIBC, LIPID #### [address] Bacteria [Presence] in Urine by AutomatedOrdered By: Anders Umana on 12-22-2023 Bacteria Auto Ql (U) None seen [HPF] None Seen [facility] Basic Metabolic Panelon 11-29 Creatinine Clr Calc Pharmacy 75.53 Normal [facility] Comment on above: Performed By: #### H SCRP, CK, CMP, CBC, FE and TIBC, LIPID #### [address] GFR/1.73 sq M.predicted MDRD (S/P/Bld) [Vol rate/Area] mL/min/{1.73_m2} Normal [facility] Comment on above: Performed By: #### H SCRP, CK, CMP, CBC, FE and TIBC, LIPID #### [address] Bilirubin Test strip Ql (U)O rdered By: Anders Umana on 12-22-2023 Bilirubin Ql (U) Negative Negative [facility] Bilirubin.direct [Mass/volum e] in Serum or PlasmaOrdered By: Anders Umana on 12-22-2023 Bilirubin.direct [Mass/Vol] 0.00 mg/dL Low 0.03-0.18 [facility] Comment on above: If the DBIL is less than 0.1, IBIL is not able to becalculated. Bilirubin.total [Mass/volume ] in Serum or PlasmaOrdered By: Anders Umana on 12-22-2023 Bilirubin [Mass/Vol] 0.2 mg/dL Low 0.3-1.0 [facility] Comment on above: Performed By: #### H SCRP, CK, CMP, CBC, FE and TIBC, LIPID #### [facility] [address] [place] [address] [facility] CT abdomen pelvis w conon CT abdomen pelvis w con [facility] [address] [place] [address] [place] [address] CT Scan Report Signed Patient: London Velasquez MR#: [id number] 345 : 1965 Acct:[id number] Age/Sex: 58 / F ADM Date: 12/22/23 Loc: ER Room: Type: [facility] ER Attending Dr: Copies to: Anders Umana [...] Stephan Wilson M.D.12/22/2023 4:59 PM Dictation Location: [place] [address] Transcribed By: [facility] 12/22/231658 Dictated By: Stephan Wilson DO 12/22/231654 Signed By: 12/22/231658 Normal [facility] Calcium [Mass/volume] in Ser um or PlasmaOrdered By: Anders Umana on 12-22-2023 Calcium [Mass/Vol] 8.9 mg/dL Normal 8.6-10.3 [facility] Comment on above: Performed By: #### H SCRP, CK, CMP, CBC, FE and TIBC, LIPID #### [address] Carbon dioxide, total [Moles /volume] in Serum or PlasmaOrdered By: Anders Umana on 12-22-2023 CO2 [Moles/Vol] 18.4 mmol/L Low 21.0-31.0 [facility] Comment on above: Performed By: #### H SCRP, CK, CMP, CBC, FE and TIBC, LIPID #### [facility] [address] Chloride [Moles/volume] in S lily or PlasmaOrdered By: Anders Umana on 12-22-2023 Chloride [Moles/Vol] 114 mmol/L High 98-107 [facility] Comment on above: Performed By: #### H SCRP, CK, CMP, CBC, FE and TIBC, LIPID #### [address] Color of Urine by AutoOrdere d By: Anders Umana on 12-22-2023 Color (U) Colorless Normal Yellow [facility] Comment on above: Order Comment: Name Collection Type:: Clean-Voided Midstream Performed By: #### B IOFIRECOVNOTDE, RESP PANEL UPP. #### [address] Complete Blood Count Auto Di ffon 12-22-2023 Mean Corpuscular HGB Conc 32.7 g/dL Normal 32.0-35.0 [facility] Comment on above: Performed By: #### H SCRP, CK, CMP, CBC, FE and TIBC, LIPID #### [facility] [address] Monocytes/100 WBC (Bld) 18.81 % Normal 0.00-20.00 [facility] Comment on above: Performed By: #### H SCRP, CK, CMP, CBC, FE and TIBC, LIPID #### [facility] [address] NRBC% 0.1 /100{WBC} Normal 0-0.5 [facility] Comment on above: Performed By: #### H SCRP, CK, CMP, CBC, FE and TIBC, LIPID #### [address] Creatinine [Mass/volume] in Serum or PlasmaOrdered By: Anders Umana on 12-22-2023 Creatinine [Mass/Vol] 0.92 mg/dL Normal 0.60-1.20 [facility] Comment on above: Performed By: #### H SCRP, CK, CMP, CBC, FE and TIBC, LIPID #### [address] Dipstick and Microscopicon 0 12-22-2023 Bacteria,Urine None Seen Normal None Seen [facility] Comment on above: Order Comment: Name Collection Type:: Clean-Voided Midstream Performed By: #### B IOFIRECOVNOTDE, RESP PANEL UPP. #### [address] Bilirubin,Urine Negative Normal Negative [facility] Comment on above: Order Comment: Name Collection Type:: Clean-Voided Midstream Performed By: #### B IOFIRECOVNOTDE, RESP PANEL UPP. #### [address] Glucose Ql (U) Normal Normal Normal [facility] Comment on above: Order Comment: Name Collection Type:: Clean-Voided Midstream Performed By: #### B IOFIRECOVNOTDE, RESP PANEL UPP. #### [address] Hyaline Casts,Urine None Normal 0-8 [facility] Comment on above: Order Comment: Name Collection Type:: Clean-Voided Midstream Result Comment: PERF ORMED BY: [place] [address] PATHOLOGIST BEAM DYER RECESSED VAT DAYANA MONTES M.D. Performed By: #### B IOFIRECOVNOTDE, RESP PANEL UPP. #### [address] Nitrite,Urine Negative Normal Negative [facility] Comment on above: Order Comment: Name Collection Type:: Clean-Voided Midstream Performed By: #### B IOFIRECOVNOTDE, RESP PANEL UPP. #### [address] Occult Blood,Urine Negative Normal Negative [facility] Comment on above: Order Comment: Name Collection Type:: Clean-Voided Midstream Result Comment: PERF ORMED BY: [place] [address] PATHOLOGIST BEAM DYER RECESSED VAT DAYANA MONTES M.D. Performed By: #### B IOFIRECOVNOTDE, RESP PANEL UPP. #### [address] Protein,Urine Negative Normal Negative [facility] Comment on above: Order Comment: Name Collection Type:: Clean-Voided Midstream Performed By: #### B IOFIRECOVNOTDE, RESP PANEL UPP. #### [address] RBC,Urine 1-2 Normal 0-4 [facility] Comment on above: Order Comment: Name Collection Type:: Clean-Voided Midstream Performed By: #### B IOFIRECOVNOTDE, RESP PANEL UPP. #### [address] Specificy Micro,Urine 1.029 Normal 1.00 1-1.03 0 [facility] Comment on above: Order Comment: Name Collection Type:: Clean-Voided Midstream Performed By: #### B IOFIRECOVNOTDE, RESP PANEL UPP. #### [facility] [address] Squamous Epithelial Cell,Urine 1-2 Normal 0-2 [facility] Comment on above: Order Comment: Name Collection Type:: Clean-Voided Midstream Performed By: #### B IOFIRECOVNOTDE, RESP PANEL UPP. #### [address] Urobilinogen,Urine Normal Normal Normal [facility] Comment on above: Order Comment: Name Collection Type:: Clean-Voided Midstream Performed By: #### B IOFIRECOVNOTDE, RESP PANEL UPP. #### [address] WBC,Urine 1-2 Normal 0-4 [facility] Comment on above: Order Comment: Name Collection Type:: Clean-Voided Midstream Performed By: #### B IOFIRECOVNOTDE, RESP PANEL UPP. #### [address] Epithelial cells.squamous [# /area] in Urine sediment by Automated countOrdered By: Anders Umana on 12-22-2023 Epithelial cells.squamous Auto (Urine sed) [#/Area] 1-2 [HPF] 0-2 [facility] Erythrocyte distribution wid th [Ratio] by Automated countOrdered By: Anders Umana on 12-22-2023 Erythrocyte distribution width (RBC) [Ratio] 16.1 % High 11.9-15.3 [facility] Comment on above: Performed By: #### H SCRP, CK, CMP, CBC, FE and TIBC, LIPID #### [address] Erythrocytes [#/area] in Uri ne sediment by Automated countOrdered By: Anders Umana on 12-22-2023 RBC Auto (Urine sed) [#/Area] 1-2 [HPF] 0-4 [facility] Erythrocytes [#/volume] in B lood by Automated countOrdered By: Anders Umana on 12-22-2023 RBC (Bld) [#/Vol] 3.99 10*6/uL Normal 3.60-5.00 [facility] Comment on above: Performed By: #### H SCRP, CK, CMP, CBC, FE and TIBC, LIPID #### [facility] [address] Glucose [Mass/volume] in Ser um or PlasmaOrdered By: Anders Umana on 12-22-2023 Glucose [Mass/Vol] 103 mg/dL High 70-100 [facility] Comment on above: ADA recommended refe rence rangeRandom Glucose Reference Range is dependent on time and content of last meal. Glucose of more than 200 mg/dL in a nonstressed, ambulatory subject supports the diagnosis of Diabetes Mellitus. Result Comment: Reading om Glucose Reference Range is dependent on time and content of last meal. Glucose of more than 200 mg/dL in a nonstressed, ambulatory subject supports the diagnosis of Diabetes Mellitus. ADA recommended reference range Performed By: #### H SCRP, CK, CMP, CBC, FE and TIBC, LIPID #### [facility] [address] [place] [address] [place] Glucose [Mass/volume] in Uri ne by Test stripOrdered By: Anders Umana on 12-22-2023 Glucose Test strip (U) [Mass/Vol] Normal mg/dL Normal [facility] Hematocrit [Volume Fraction] of Blood by Automated countOrdered By: Anders Umana on 12-22-2023 Hematocrit (Bld) [Volume fraction] 38.2 % Normal 34.0-46.4 [facility] Comment on above: Performed By: #### H SCRP, CK, CMP, CBC, FE and TIBC, LIPID #### [facility] [address] Hemoglobin Test strip Ql (U) Ordered By: Anders Umana on 12-22-2023 Hemoglobin Ql (U) Negative Negative [facility] Hemoglobin [Mass/volume] in BloodOrdered By: Anders Umana on 12-22-2023 Hemoglobin (Bld) [Mass/Vol] 12.5 g/dL Normal 11.8-15.4 [facility] Comment on above: Performed By: #### H SCRP, CK, CMP, CBC, FE and TIBC, LIPID #### [facility] [address] Hepatic Panelon 12-22-2023 Albumin [Mass/Vol] 4.2 g/dL Normal 3.5-5.7 [facility] Comment on above: Performed By: #### H SCRP, CK, CMP, CBC, FE and TIBC, LIPID #### [facility] [address] Bilirubin,Indirect 0.2 mg/dL Normal [facility] Comment on above: Performed By: #### H SCRP, CK, CMP, CBC, FE and TIBC, LIPID #### [facility] [address] Bilirubin.indirect [Mass/Vol] 0.00 mg/dL Low 0.03-0.18 [facility] Comment on above: Result Comment: If t he DBIL is less than 0.1, IBIL is not able to be calculated. Performed By: #### H SCRP, CK, CMP, CBC, FE and TIBC, LIPID #### [facility] [address] Hyaline casts [#/area] in Ur ine sediment by Automated countOrdered By: Anders Umana on 12-22-2023 Hyaline casts Auto (Urine sed) [#/Area] None [LPF] 0-8 [facility] Ketones [Presence] in Urine by Test stripOrdered By: Anders Umana on 12-22-2023 Ketones Ql (U) Negative Normal Negative [facility] Comment on above: Order Comment: Name Collection Type:: Clean-Voided Midstream Performed By: #### B IOFIRECOVNOTDE, RESP PANEL UPP. #### [facility] [address] Leukocyte esterase [Presence ] in Urine by Test stripOrdered By: Anders Umana on 12-22-2023 Leukocyte esterase Test strip Ql (U) 1+ High Negative [facility] Comment on above: Order Comment: Name Collection Type:: Clean-Voided Midstream Performed By: #### B IOFIRECOVNOTDE, RESP PANEL UPP. #### [facility] [address] [place] [address] [place] Leukocytes [#/area] in Urine sediment by Automated countOrdered By: Anders Umana on 12-22-2023 WBC Auto (Urine sed) [#/Area] 1-2 [HPF] 0-4 [facility] Leukocytes [#/volume] correc alyse for nucleated erythrocytes in Blood by Automated counOrdered By: Anders Umana on 12-22-2023 WBC corrected for nucl RBC Auto (Bld) [#/Vol] 7.4 10*3/uL 3.8-11.6 [facility] Leukocytes [#/volume] in Blo od by Automated countOrdered By: Anders Umana on 12-22-2023 WBC (Bld) [#/Vol] 7.4 10*3/uL Normal 3.8-11.6 [facility] Comment on above: Performed By: #### H SCRP, CK, CMP, CBC, FE and TIBC, LIPID #### [facility] [address] [place] [address] Lipase [Enzymatic activity/v olume] in Serum or PlasmaOrdered By: Anders Umana on 12-22-2023 Lipase [Catalytic activity/Vol] 19.0 U/L Normal 11.0-82.0 [facility] Comment on above: Result Comment: PERF ORMED BY: [place] [address] PATHOLOGIST BEAM DYER RECESSED VAT DAYANA MONTES M.D. Performed By: #### H SCRP, CK, CMP, CBC, FE and TIBC, LIPID #### [facility] [address] [place] [address] [place] Lymphocytes [#/volume] in Bl ood by Automated countOrdered By: Anders Umana on 12-22-2023 Lymphocytes (Bld) [#/Vol] 2.1 10*3/uL Normal 1.00-4.8 [facility] Comment on above: Performed By: #### H SCRP, CK, CMP, CBC, FE and TIBC, LIPID #### [facility] [address] [place] [address] Lymphocytes/100 leukocytes i n Blood by Automated countOrdered By: Anders Umana on 12-22-2023 Lymphocytes/100 WBC (Bld) 29.0 % Normal . [facility] Comment on above: Performed By: #### H SCRP, CK, CMP, CBC, FE and TIBC, LIPID #### [facility] [address] MCH [Entitic mass] by Automa alyse countOrdered By: Anders Umana on 12-22-2023 MCH (RBC) [Entitic mass] 31.3 pg Normal 24.7-34.3 [facility] Comment on above: Performed By: #### H SCRP, CK, CMP, CBC, FE and TIBC, LIPID #### [address] MCHC Auto (RBC) [Mass/Vol]Or dered By: Anders Umana on 12-22-2023 MCHC (RBC) [Mass/Vol] 32.7 g/dL 32.0-35.0 [facility] MCV [Entitic volume] by Auto mated countOrdered By: Anders Umana on 12-22-2023 MCV (RBC) [Entitic vol] 95.7 fL Normal 80-100 [facility] Comment on above: Performed By: #### H SCRP, CK, CMP, CBC, FE and TIBC, LIPID #### [address] Monocyte distribution width [Entitic volume] in Blood by AutomatedOrdered By: Anders Umana on 12-22-2023 Monocyte distribution width Auto (Bld) [Entitic vol] 18.81 % 0.00-20.00 [facility] Neutrophils [#/volume] in Bl ood by Automated countOrdered By: Anders Umana on 12-22-2023 Neutrophils (Bld) [#/Vol] 4.5 10*3/uL Normal 1.8-7.7 [facility] Comment on above: Performed By: #### H SCRP, CK, CMP, CBC, FE and TIBC, LIPID #### [address] Nitrite Test strip Ql (U)Ord ered By: Anders Umana on 12-22-2023 Nitrite Ql (U) Negative Negative [facility] No Panel InformationOrdered By: Anders Umana on 12-22-2023 Estimated GFR (CKD-EPI) > 60.0 mL/Min [facility] Creatinine Clearance (Chem 75.53 [facility] Nucleated erythrocytes [Pres ence] in Blood by Automated countOrdered By: Anders Umana on 12-22-2023 Nucleated RBC Auto Ql (Bld) 0.1 /100{WBC} 0-0.5 [facility] Platelet mean volume [Entiti c volume] in Blood by Automated countOrdered By: Anders Umana on 12-22-2023 Platelet mean volume (Bld) [Entitic vol] 9.3 fL Normal 6.3-10.7 [facility] Comment on above: Performed By: #### H SCRP, CK, CMP, CBC, FE and TIBC, LIPID #### [facility] [address] Platelets [#/volume] in Bloo d by Automated countOrdered By: Anders Umana on 12-22-2023 Platelets (Bld) [#/Vol] 301 10*3/uL Normal 150-450 [facility] Comment on above: Performed By: #### H SCRP, CK, CMP, CBC, FE and TIBC, LIPID #### [facility] [address] [place] [address] [place] Potassium [Moles/volume] in Serum or PlasmaOrdered By: Anders Umana on 12-22-2023 Potassium [Moles/Vol] 4.4 mmol/L Normal 3.5-5.1 [facility] Comment on above: Performed By: #### H SCRP, CK, CMP, CBC, FE and TIBC, LIPID #### [facility] [address] Protein Test strip (U) [Mass /Vol]Ordered By: Anders Umana on 12-22-2023 Protein (U) [Mass/Vol] Negative Negative [facility] Protein [Mass/volume] in Ser um or PlasmaOrdered By: Anders Umana on 12-22-2023 Protein [Mass/Vol] 7.2 g/dL Normal 6.4-8.9 [facility] Comment on above: Performed By: #### H SCRP, CK, CMP, CBC, FE and TIBC, LIPID #### [facility] [address] Serum globulin measurement b y calculation (mass/volume)Ordered By: Anders Umana on 12-22-2023 Globulin (S) [Mass/Vol] 3.0 g/dL Normal [facility] Comment on above: Performed By: #### H SCRP, CK, CMP, CBC, FE and TIBC, LIPID #### [facility] [address] [place] [address] Serum or plasma albumin/glob ulin mass ratioOrdered By: Anders Umana on 12-22-2023 Albumin/Globulin [Mass ratio] 1.4 {ratio} Normal [facility] Comment on above: Performed By: #### H SCRP, CK, CMP, CBC, FE and TIBC, LIPID #### [facility] [address] [place] [address] Serum or plasma anion gap de terminationOrdered By: Anders Umana on 12-22-2023 Anion gap [Moles/Vol] 9.0 mmol/L Normal 6.0-15.0 [facility] Comment on above: Performed By: #### H SCRP, CK, CMP, CBC, FE and TIBC, LIPID #### [facility] [address] [place] [address] Serum or plasma non-glucuron idated bilirubin measurement (mass/volume)Ordered By: Anders Umana on 12-22-2023 Bilirubin.indirect [Mass/Vol] 0.2 mg/dL [facility] Sodium [Moles/volume] in Ser um or PlasmaOrdered By: Anders Umana on 12-22-2023 Sodium [Moles/Vol] 137 mmol/L Normal 136-145 [facility] Comment on above: Performed By: #### H SCRP, CK, CMP, CBC, FE and TIBC, LIPID #### [address] Specific gravity Test strip (U) [Rel density]Ordered By: Anders Umana on 12-22-2023 Specific gravity (U) [Rel density] 1.029 1.001-1.03 0 [facility] Urea nitrogen [Mass/volume] in Serum or PlasmaOrdered By: Anders Umana on 12-22-2023 Urea nitrogen [Mass/Vol] 11 mg/dL Normal 7-25 [facility] Comment on above: Performed By: #### H SCRP, CK, CMP, CBC, FE and TIBC, LIPID #### [facility] [address] [place] [address] Urine appearanceOrdered By: Anders Umana on 12-22-2023 Appearance (U) Clear Normal Clear [facility] Comment on above: Order Comment: Name Collection Type:: Clean-Voided Midstream Performed By: #### B IOFIRECOVNOTDE, RESP PANEL UPP. #### [address] Urobilinogen Test strip (U) [Mass/Vol]Ordered By: Anders Umana on 12-22-2023 Urobilinogen (U) [Mass/Vol] Normal mg/dL Normal [facility] XR chest 2V*on 12-22-2023 XR chest 2V* [facility] [address] XRay Report Signed Patient: London Velasquez MR#: [id number] : 1965 Acct:[id number] Age/Sex: 58 / F ADM Date: 12/22/23 Loc: ER Room: Type: [facility] ER Attending Dr: Copies to: Anders Umana [...] Stephan Wilson M.D.12/22/2023 4:50 PM Dictation Location: [place] [address] Transcribed By: [facility] 12/22/231649 Dictated By: Stephan Wilson DO 12/22/231649 Signed By: 12/22/231649 Normal [facility] pH of Urine by Test stripOrd ered By: Anders Umana on 12-22-2023 pH (U) 5.5 [pH] Normal 5.0-9.0 [facility] Comment on above: Order Comment: Name Collection Type:: Clean-Voided Midstream Performed By: #### B IOFIRECOVNOTDE, RESP PANEL UPP. #### [facility] [address] [place] [address] [place] Alanine aminotransferase [En zymatic activity/volume] in Serum or PlasmaOrdered By: Kassandra Klein on 12-16-2023 ALT [Catalytic activity/Vol] 17 U/L Normal 7-52 [facility] Comment on above: Order Comment: Reaso n for Exam Diabetes mellitus due to underlying condition with complicat Performed By: #### B IOFIRECOVNOTDE, RESP PANEL UPP. #### [facility] [address] [place] [address] [place] Albumin [Mass/volume] in Ser um or Plasma by Bromocresol green (BCG) dye binding methoOrdered By: Kassandra Klein on 12-16-2023 Albumin BCG dye [Mass/Vol] 4.3 g/dL 3.5-5.7 [facility] Alkaline phosphatase [Enzyma tic activity/volume] in Serum or PlasmaOrdered By: Kassandra Klein on 12-16-2023 ALP [Catalytic activity/Vol] 70 U/L Normal 34-104 [facility] Comment on above: Order Comment: Reaso n for Exam Diabetes mellitus due to underlying condition with complicat Performed By: #### B IOFIRECOVNOTDE, RESP PANEL UPP. #### [facility] [address] [place] [address] [place] Aspartate aminotransferase [ Enzymatic activity/volume] in Serum or PlasmaOrdered By: Kassandra Klein on 12-16-2023 AST [Catalytic activity/Vol] 18 U/L Normal 13-39 [facility] Comment on above: Order Comment: Reaso n for Exam Diabetes mellitus due to underlying condition with complicat Performed By: #### B IOFIRECOVNOTDE, RESP PANEL UPP. #### [address] Automated basophil %Ordered By: Kassandra Klein on 12-16-2023 Basophils/100 WBC (Bld) 0.7 % Normal . [facility] Comment on above: Order Comment: Reaso n for Exam Diabetes mellitus due to underlying condition with complicat Performed By: #### B IOFIRECOVNOTDE, RESP PANEL UPP. #### [address] Automated basophil countOrde red By: Kassandra Klein on 12-16-2023 Basophils (Bld) [#/Vol] 0.1 10*3/uL Normal 0.0-0.2 [facility] Comment on above: Order Comment: Reaso n for Exam Diabetes mellitus due to underlying condition with complicat Result Comment: PERF ORMED BY: [place] [address] PATHOLOGIST BEAM DYER RECESSED VAT DAYANA MONTES M.D. Performed By: #### B IOFIRECOVNOTDE, RESP PANEL UPP. #### [address] Automated blood monocyte cou ntOrdered By: Kassandra Klein on 12-16-2023 Monocytes (Bld) [#/Vol] 0.5 10*3/uL Normal 0.0-0.8 [facility] Comment on above: Order Comment: Reaso n for Exam Diabetes mellitus due to underlying condition with complicat Performed By: #### B IOFIRECOVNOTDE, RESP PANEL UPP. #### [address] Automated eosinophil %Ordere d By: Kassandra Klein on 12-16-2023 Eosinophils/100 WBC (Bld) 2.0 % Normal . [facility] Comment on above: Order Comment: Reaso n for Exam Diabetes mellitus due to underlying condition with complicat Performed By: #### B IOFIRECOVNOTDE, RESP PANEL UPP. #### [facility] [address] Automated eosinophil countOr dered By: Kassandra Klein on 12-16-2023 Eosinophils (Bld) [#/Vol] 0.2 10*3/uL Normal 0.0-0.45 [facility] Comment on above: Order Comment: Reaso n for Exam Diabetes mellitus due to underlying condition with complicat Performed By: #### B IOFIRECOVNOTDE, RESP PANEL UPP. #### [facility] [address] Automated monocyte %Ordered By: Kassandra Klein on 12-16-2023 Monocytes/100 WBC (Bld) 5.7 % Normal . [facility] Comment on above: Order Comment: Reaso n for Exam Diabetes mellitus due to underlying condition with complicat Performed By: #### B IOFIRECOVNOTDE, RESP PANEL UPP. #### [facility] [address] Automated neutrophil %Ordere d By: Kassandra Klein on 12-16-2023 Neutrophils/100 WBC (Bld) 62.7 % Normal . [facility] Comment on above: Order Comment: Reaso n for Exam Diabetes mellitus due to underlying condition with complicat Performed By: #### B IOFIRECOVNOTDE, RESP PANEL UPP. #### [facility] [address] [place] [address] [place] Bilirubin.total [Mass/volume ] in Serum or PlasmaOrdered By: Kassandra Klein on 12-16-2023 Bilirubin [Mass/Vol] 0.4 mg/dL Normal 0.3-1.0 [facility] Comment on above: Order Comment: Reaso n for Exam Diabetes mellitus due to underlying condition with complicat Performed By: #### B IOFIRECOVNOTDE, RESP PANEL UPP. #### [facility] [address] Calcium [Mass/volume] in Ser um or PlasmaOrdered By: Kassandra Klein on 12-16-2023 Calcium [Mass/Vol] 9.5 mg/dL Normal 8.6-10.3 [facility] Comment on above: Order Comment: Reaso n for Exam Diabetes mellitus due to underlying condition with complicat Performed By: #### B IOFIRECOVNOTDE, RESP PANEL UPP. #### [address] Carbon dioxide, total [Moles /volume] in Serum or PlasmaOrdered By: Kassandra Klein on 12-16-2023 CO2 [Moles/Vol] 21.1 mmol/L Normal 21.0-31.0 [facility] Comment on above: Order Comment: Reaso n for Exam Diabetes mellitus due to underlying condition with complicat Performed By: #### B IOFIRECOVNOTDE, RESP PANEL UPP. #### [address] Chloride [Moles/volume] in S lily or PlasmaOrdered By: Kassandra Klein on 12-16-2023 Chloride [Moles/Vol] 107 mmol/L Normal 98-107 [facility] Comment on above: Order Comment: Reaso n for Exam Diabetes mellitus due to underlying condition with complicat Performed By: #### B IOFIRECOVNOTDE, RESP PANEL UPP. #### [facility] [address] [place] [address] Complete Blood Count Auto Di ffon 12-16-2023 Mean Corpuscular HGB Conc 33.3 g/dL Normal 32.0-35.0 [facility] Comment on above: Order Comment: Reaso n for Exam Diabetes mellitus due to underlying condition with complicat Performed By: #### B IOFIRECOVNOTDE, RESP PANEL UPP. #### [address] NRBC% 0.1 /100{WBC} Normal 0-0.5 [facility] Comment on above: Order Comment: Reaso n for Exam Diabetes mellitus due to underlying condition with complicat Performed By: #### B IOFIRECOVNOTDE, RESP PANEL UPP. #### [address] Comprehensive Metabolic Pane claire 12-16-2023 Albumin [Mass/Vol] 4.3 g/dL Normal 3.5-5.7 [facility] Comment on above: Order Comment: Reaso n for Exam Diabetes mellitus due to underlying condition with complicat Performed By: #### B IOFIRECOVNOTDE, RESP PANEL UPP. #### [address] GFR/1.73 sq M.predicted MDRD (S/P/Bld) [Vol rate/Area] mL/min/{1.73_m2} Normal [facility] Comment on above: Order Comment: Reaso n for Exam Diabetes mellitus due to underlying condition with complicat Performed By: #### B IOFIRECOVNOTDE, RESP PANEL UPP. #### [address] Creatinine [Mass/volume] in Serum or PlasmaOrdered By: Kassandra Klein on 12-16-2023 Creatinine [Mass/Vol] 0.89 mg/dL Normal 0.60-1.20 [facility] Comment on above: Order Comment: Reaso n for Exam Diabetes mellitus due to underlying condition with complicat Performed By: #### B IOFIRECOVNOTDE, RESP PANEL UPP. #### [address] Erythrocyte distribution wid th [Ratio] by Automated countOrdered By: Kassandra Klein on 12-16-2023 Erythrocyte distribution width (RBC) [Ratio] 15.5 % High 11.9-15.3 [facility] Comment on above: Order Comment: Reaso n for Exam Diabetes mellitus due to underlying condition with complicat Performed By: #### B IOFIRECOVNOTDE, RESP PANEL UPP. #### [place] [address] [place] Erythrocytes [#/volume] in B lood by Automated countOrdered By: Kassandra Klein on 12-16-2023 RBC (Bld) [#/Vol] 4.09 10*6/uL Normal 3.60-5.00 [facility] Comment on above: Order Comment: Reaso n for Exam Diabetes mellitus due to underlying condition with complicat Performed By: #### B IOFIRECOVNOTDE, RESP PANEL UPP. #### [facility] [address] [place] [address] [place] Glucose [Mass/volume] in Ser um or PlasmaOrdered By: Kassandra Klein on 12-16-2023 Glucose [Mass/Vol] 111 mg/dL High 70-100 [facility] Comment on above: ADA recommended refe rence rangeRandom Glucose Reference Range is dependent on time and content of last meal. Glucose of more than 200 mg/dL in a nonstressed, ambulatory subject supports the diagnosis of Diabetes Mellitus. Order Comment: Reaso n for Exam Diabetes mellitus due to underlying condition with complicat Result Comment: Reading om Glucose Reference Range is dependent on time and content of last meal. Glucose of more than 200 mg/dL in a nonstressed, ambulatory subject supports the diagnosis of Diabetes Mellitus. ADA recommended reference range Performed By: #### B IOFIRECOVNOTDE, RESP PANEL UPP. #### [facility] [address] [place] [address] [place] Hematocrit [Volume Fraction] of Blood by Automated countOrdered By: Kassandra Klein on 12-16-2023 Hematocrit (Bld) [Volume fraction] 38.5 % Normal 34.0-46.4 [facility] Comment on above: Order Comment: Reaso n for Exam Diabetes mellitus due to underlying condition with complicat Performed By: #### B IOFIRECOVNOTDE, RESP PANEL UPP. #### [facility] [address] [place] [address] [place] Hemoglobin [Mass/volume] in BloodOrdered By: Kassandra Klein on 12-16-2023 Hemoglobin (Bld) [Mass/Vol] 12.8 g/dL Normal 11.8-15.4 [facility] Comment on above: Order Comment: Reaso n for Exam Diabetes mellitus due to underlying condition with complicat Performed By: #### B IOFIRECOVNOTDE, RESP PANEL UPP. #### [facility] [address] Leukocytes [#/volume] correc alyse for nucleated erythrocytes in Blood by Automated counOrdered By: Kassandra Klein on 12-16-2023 WBC corrected for nucl RBC Auto (Bld) [#/Vol] 9.6 10*3/uL 3.8-11.6 [facility] Leukocytes [#/volume] in Blo od by Automated countOrdered By: Kassandra Klein on 12-16-2023 WBC (Bld) [#/Vol] 9.6 10*3/uL Normal 3.8-11.6 [facility] Comment on above: Order Comment: Reaso n for Exam Diabetes mellitus due to underlying condition with complicat Performed By: #### B IOFIRECOVNOTDE, RESP PANEL UPP. #### [place] [address] [place] Lymphocytes [#/volume] in Bl ood by Automated countOrdered By: Kassandra Klein on 12-16-2023 Lymphocytes (Bld) [#/Vol] 2.8 10*3/uL Normal 1.00-4.8 [facility] Comment on above: Order Comment: Reaso n for Exam Diabetes mellitus due to underlying condition with complicat Performed By: #### B IOFIRECOVNOTDE, RESP PANEL UPP. #### [place] [address] [place] Lymphocytes/100 leukocytes i n Blood by Automated countOrdered By: Kassandra Klein on 12-16-2023 Lymphocytes/100 WBC (Bld) 28.9 % Normal . [facility] Comment on above: Order Comment: Reaso n for Exam Diabetes mellitus due to underlying condition with complicat Performed By: #### B IOFIRECOVNOTDE, RESP PANEL UPP. #### [place] [address] [place] MCH [Entitic mass] by Automa alyse countOrdered By: Kassandra Klein on 12-16-2023 MCH (RBC) [Entitic mass] 31.3 pg Normal 24.7-34.3 [facility] Comment on above: Order Comment: Reaso n for Exam Diabetes mellitus due to underlying condition with complicat Performed By: #### B IOFIRECOVNOTDE, RESP PANEL UPP. #### [facility] [address] [place] [address] MCHC Auto (RBC) [Mass/Vol]Or dered By: Kassandra Klein on 12-16-2023 MCHC (RBC) [Mass/Vol] 33.3 g/dL 32.0-35.0 [facility] MCV [Entitic volume] by Auto mated countOrdered By: Kassandra Klein on 12-16-2023 MCV (RBC) [Entitic vol] 94.1 fL Normal 80-100 [facility] Comment on above: Order Comment: Reaso n for Exam Diabetes mellitus due to underlying condition with complicat Performed By: #### B IOFIRECOVNOTDE, RESP PANEL UPP. #### [address] Neutrophils [#/volume] in Bl ood by Automated countOrdered By: Kassandra Klein on 12-16-2023 Neutrophils (Bld) [#/Vol] 6.0 10*3/uL Normal 1.8-7.7 [facility] Comment on above: Order Comment: Reaso n for Exam Diabetes mellitus due to underlying condition with complicat Performed By: #### B IOFIRECOVNOTDE, RESP PANEL UPP. #### [address] No Panel InformationOrdered By: Kassandra Klein on 12-16-2023 Estimated GFR (CKD-EPI) > 60.0 mL/Min [facility] Creatinine Clearance (Chem N/A [facility] Nucleated erythrocytes [Pres ence] in Blood by Automated countOrdered By: Kassandra Klein on 12-16-2023 Nucleated RBC Auto Ql (Bld) 0.1 /100{WBC} 0-0.5 [facility] Platelet mean volume [Entiti c volume] in Blood by Automated countOrdered By: Kassandra Klein on 12-16-2023 Platelet mean volume (Bld) [Entitic vol] 10.1 fL Normal 6.3-10.7 [facility] Comment on above: Order Comment: Reaso n for Exam Diabetes mellitus due to underlying condition with complicat Performed By: #### B IOFIRECOVNOTDE, RESP PANEL UPP. #### [facility] [address] [place] [address] [place] Platelets [#/volume] in Bloo d by Automated countOrdered By: Kassandra Klein on 12-16-2023 Platelets (Bld) [#/Vol] 319 10*3/uL Normal 150-450 [facility] Comment on above: Order Comment: Reaso n for Exam Diabetes mellitus due to underlying condition with complicat Performed By: #### B IOFIRECOVNOTDE, RESP PANEL UPP. #### [facility] [address] [place] [address] [place] Potassium [Moles/volume] in Serum or PlasmaOrdered By: Kassandra Klein on 12-16-2023 Potassium [Moles/Vol] 4.2 mmol/L Normal 3.5-5.1 [facility] Comment on above: Order Comment: Reaso n for Exam Diabetes mellitus due to underlying condition with complicat Performed By: #### B IOFIRECOVNOTDE, RESP PANEL UPP. #### [facility] [address] [place] [address] [place] Protein [Mass/volume] in Ser um or PlasmaOrdered By: Kassandra Klein on 12-16-2023 Protein [Mass/Vol] 7.2 g/dL Normal 6.4-8.9 [facility] Comment on above: Order Comment: Reaso n for Exam Diabetes mellitus due to underlying condition with complicat Performed By: #### B IOFIRECOVNOTDE, RESP PANEL UPP. #### [facility] [address] Serum globulin measurement b y calculation (mass/volume)Ordered By: Kassandra Klein on 12-16-2023 Globulin (S) [Mass/Vol] 2.9 g/dL Normal [facility] Comment on above: Order Comment: Reaso n for Exam Diabetes mellitus due to underlying condition with complicat Performed By: #### B IOFIRECOVNOTDE, RESP PANEL UPP. #### [facility] [address] Serum or plasma albumin/glob ulin mass ratioOrdered By: Kassandra Klein on 12-16-2023 Albumin/Globulin [Mass ratio] 1.5 {ratio} Normal [facility] Comment on above: Order Comment: Reaso n for Exam Diabetes mellitus due to underlying condition with complicat Performed By: #### B IOFIRECOVNOTDE, RESP PANEL UPP. #### [facility] [address] [place] [address] Serum or plasma anion gap de terminationOrdered By: Kassandra Klein on 12-16-2023 Anion gap [Moles/Vol] 15.1 mmol/L High 6.0-15.0 [facility] Comment on above: Order Comment: Reaso n for Exam Diabetes mellitus due to underlying condition with complicat Performed By: #### B IOFIRECOVNOTDE, RESP PANEL UPP. #### [facility] [address] [place] [address] Sodium [Moles/volume] in Ser um or PlasmaOrdered By: Kassandra Klein on 12-16-2023 Sodium [Moles/Vol] 139 mmol/L Normal 136-145 [facility] Comment on above: Order Comment: Reaso n for Exam Diabetes mellitus due to underlying condition with complicat Performed By: #### B IOFIRECOVNOTDE, RESP PANEL UPP. #### [facility] [address] [place] [address] [place] Urate [Mass/volume] in Serum or PlasmaOrdered By: Kassandra Klein on 12-16-2023 Urate [Mass/Vol] 6.1 mg/dL Normal 2.3-6.6 [facility] Comment on above: Order Comment: Reaso n for Exam Diabetes mellitus due to underlying condition with complicat Result Comment: PERF ORMED BY: [place] [address] PATHOLOGIST [employer] RECESSED VAT DAYANA MONTES M.D. Performed By: #### B IOFIRECOVNOTDE, RESP PANEL UPP. #### [facility] [address] [place] [address] [place] Urea nitrogen [Mass/volume] in Serum or PlasmaOrdered By: Kassandra Klein on 12-16-2023 Urea nitrogen [Mass/Vol] 16 mg/dL Normal 7-25 [facility] Comment on above: Order Comment: Reaso n for Exam Diabetes mellitus due to underlying condition with complicat Performed By: #### B IOFIRECOVNOTDE, RESP PANEL UPP. #### [facility] [address] [place] [address] [place] Alanine aminotransferase [En zymatic activity/volume] in Serum or PlasmaOrdered By: Kassandra Klein on 09-11-2023 ALT [Catalytic activity/Vol] 17 U/L Normal 7-52 [facility] Comment on above: Order Comment: Reaso n for Exam Umbilical mass;Periumbilical abdominal pain Performed By: #### H SCRP, CK, CMP, CBC, FE and TIBC, LIPID #### [facility] [address] [place] [address] [place] Albumin [Mass/volume] in Ser um or Plasma by Bromocresol green (BCG) dye binding methoOrdered By: Kassandra Klein on 09-11-2023 Albumin BCG dye [Mass/Vol] 4.5 g/dL 3.5-5.7 [facility] Alkaline phosphatase [Enzyma tic activity/volume] in Serum or PlasmaOrdered By: Kassandra Klein on 09-11-2023 ALP [Catalytic activity/Vol] 79 U/L Normal 34-104 [facility] Comment on above: Order Comment: Reaso n for Exam Umbilical mass;Periumbilical abdominal pain Result Comment: PERF ORMED BY: [place] [address] PATHOLOGIST BEAM DYER RECESSED VAT DAYANA MONTES M.D. Performed By: #### H SCRP, CK, CMP, CBC, FE and TIBC, LIPID #### [address] Aspartate aminotransferase [ Enzymatic activity/volume] in Serum or PlasmaOrdered By: Kassandra Klein on 09-11-2023 AST [Catalytic activity/Vol] 20 U/L Normal 13-39 [facility] Comment on above: Order Comment: Reaso n for Exam Umbilical mass;Periumbilical abdominal pain Performed By: #### H SCRP, CK, CMP, CBC, FE and TIBC, LIPID #### [address] Automated basophil %Ordered By: Kassandra Klein on 09-11-2023 Basophils/100 WBC (Bld) 0.9 % Normal . [facility] Comment on above: Order Comment: Reaso n for Exam Umbilical mass;Periumbilical abdominal pain Performed By: #### H SCRP, CK, CMP, CBC, FE and TIBC, LIPID #### [address] Automated basophil countOrde red By: Kassandra Klein on 09-11-2023 Basophils (Bld) [#/Vol] 0.1 10*3/uL Normal 0.0-0.2 [facility] Comment on above: Order Comment: Reaso n for Exam Umbilical mass;Periumbilical abdominal pain Result Comment: PERF ORMED BY: [place] [address] PATHOLOGIST BEAM DYER RECESSED VAT DAYANA MONTES M.D. Performed By: #### H SCRP, CK, CMP, CBC, FE and TIBC, LIPID #### [address] Automated blood monocyte cou ntOrdered By: Kassandra Klein on 09-11-2023 Monocytes (Bld) [#/Vol] 0.6 10*3/uL Normal 0.0-0.8 [facility] Comment on above: Order Comment: Reaso n for Exam Umbilical mass;Periumbilical abdominal pain Performed By: #### H SCRP, CK, CMP, CBC, FE and TIBC, LIPID #### [address] [place] [address] [place] Automated eosinophil %Ordere d By: Kassandra Vázquezc on 09-11-2023 Eosinophils/100 WBC (Bld) 3.1 % Normal . [facility] Comment on above: Order Comment: Reaso n for Exam Umbilical mass;Periumbilical abdominal pain Performed By: #### H SCRP, CK, CMP, CBC, FE and TIBC, LIPID #### [facility] [address] Automated eosinophil countOr dered By: Kassandra Klein on 09-11-2023 Eosinophils (Bld) [#/Vol] 0.3 10*3/uL Normal 0.0-0.45 [facility] Comment on above: Order Comment: Reaso n for Exam Umbilical mass;Periumbilical abdominal pain Performed By: #### H SCRP, CK, CMP, CBC, FE and TIBC, LIPID #### [address] Automated monocyte %Ordered By: Kassandra Klein on 09-11-2023 Monocytes/100 WBC (Bld) 7.0 % Normal . [facility] Comment on above: Order Comment: Reaso n for Exam Umbilical mass;Periumbilical abdominal pain Performed By: #### H SCRP, CK, CMP, CBC, FE and TIBC, LIPID #### [facility] [address] [place] [address] Automated neutrophil %Ordere d By: Kassandra Vázquezc on 09-11-2023 Neutrophils/100 WBC (Bld) 64.9 % Normal . [facility] Comment on above: Order Comment: Reaso n for Exam Umbilical mass;Periumbilical abdominal pain Performed By: #### H SCRP, CK, CMP, CBC, FE and TIBC, LIPID #### [facility] [address] [place] [address] Bilirubin.total [Mass/volume ] in Serum or PlasmaOrdered By: Kassandra Klein on 09-11-2023 Bilirubin [Mass/Vol] 0.5 mg/dL Normal 0.3-1.0 [facility] Comment on above: Order Comment: Reaso n for Exam Umbilical mass;Periumbilical abdominal pain Performed By: #### H SCRP, CK, CMP, CBC, FE and TIBC, LIPID #### [facility] [address] [place] [address] [facility] CT abdomen pelvis w conon CT abdomen pelvis w con [facility] [place] [address] [place] Scan Report Signed Patient: London Velasquez MR#: [id number] : 1965 Acct:[id number] Age/Sex: 58 / F ADM Date: 09/11/23 Loc: CT Room: Type: [facility] Attending Dr: Kassandra HADLEY Copies to: JOMAR [...] Martinez Jr., D.OShira09/11/2023 3:08 PM Dictation Location: [facility] Transcribed By: [facility] 09/11/23 1508 Dictated By: Winston Matrinez Jr, DO 09/11/23 1458 Signed By: 09/11/23 1508 Normal [facility] Calcium [Mass/volume] in Ser um or PlasmaOrdered By: Kassandra Klein on 09-11-2023 Calcium [Mass/Vol] 9.7 mg/dL Normal 8.6-10.3 [facility] Comment on above: Order Comment: Reaso n for Exam Umbilical mass;Periumbilical abdominal pain Performed By: #### H SCRP, CK, CMP, CBC, FE and TIBC, LIPID #### [facility] [address] Carbon dioxide, total [Moles /volume] in Serum or PlasmaOrdered By: Kassandra Klein on 09-11-2023 CO2 [Moles/Vol] 21.8 mmol/L Normal 21.0-31.0 [facility] Comment on above: Order Comment: Reaso n for Exam Umbilical mass;Periumbilical abdominal pain Performed By: #### H SCRP, CK, CMP, CBC, FE and TIBC, LIPID #### [facility] [address] Chloride [Moles/volume] in S lily or PlasmaOrdered By: Kassandra Klein on 09-11-2023 Chloride [Moles/Vol] 109 mmol/L High 98-107 [facility] Comment on above: Order Comment: Reaso n for Exam Umbilical mass;Periumbilical abdominal pain Performed By: #### H SCRP, CK, CMP, CBC, FE and TIBC, LIPID #### [facility] [address] [place] [address] [place] Complete Blood Count Auto Di ffon 09-11-2023 Mean Corpuscular HGB Conc 32.6 g/dL Normal 32.0-35.0 [facility] Comment on above: Order Comment: Reaso n for Exam Umbilical mass;Periumbilical abdominal pain Performed By: #### H SCRP, CK, CMP, CBC, FE and TIBC, LIPID #### [facility] [address] NRBC% 0.1 /100{WBC} Normal 0-0.5 [facility] Comment on above: Order Comment: Reaso n for Exam Umbilical mass;Periumbilical abdominal pain Performed By: #### H SCRP, CK, CMP, CBC, FE and TIBC, LIPID #### [facility] [address] [place] [address] Comprehensive Metabolic Pane claire 09-11-2023 Albumin [Mass/Vol] 4.5 g/dL Normal 3.5-5.7 [facility] Comment on above: Order Comment: Reaso n for Exam Umbilical mass;Periumbilical abdominal pain Performed By: #### H SCRP, CK, CMP, CBC, FE and TIBC, LIPID #### [address] GFR/1.73 sq M.predicted MDRD (S/P/Bld) [Vol rate/Area] mL/min/{1.73_m2} Normal [facility] Comment on above: Order Comment: Reaso n for Exam Umbilical mass;Periumbilical abdominal pain Performed By: #### H SCRP, CK, CMP, CBC, FE and TIBC, LIPID #### [address] Creatinine [Mass/volume] in Serum or PlasmaOrdered By: Kassandra Klein on 09-11-2023 Creatinine [Mass/Vol] 0.78 mg/dL Normal 0.60-1.20 [facility] Comment on above: Order Comment: Reaso n for Exam Umbilical mass;Periumbilical abdominal pain Performed By: #### H SCRP, CK, CMP, CBC, FE and TIBC, LIPID #### [facility] [address] [place] [address] Erythrocyte distribution wid th [Ratio] by Automated countOrdered By: Kassandra Klein on 09-11-2023 Erythrocyte distribution width (RBC) [Ratio] 14.9 % Normal 11.9-15.3 [facility] Comment on above: Order Comment: Reaso n for Exam Umbilical mass;Periumbilical abdominal pain Performed By: #### H SCRP, CK, CMP, CBC, FE and TIBC, LIPID #### [facility] [address] Erythrocytes [#/volume] in B lood by Automated countOrdered By: Kassandra Klein on 09-11-2023 RBC (Bld) [#/Vol] 4.62 10*6/uL Normal 3.60-5.00 [facility] Comment on above: Order Comment: Reaso n for Exam Umbilical mass;Periumbilical abdominal pain Performed By: #### H SCRP, CK, CMP, CBC, FE and TIBC, LIPID #### [facility] [address] Glucose [Mass/volume] in Ser um or PlasmaOrdered By: Kassandra Klein on 09-11-2023 Glucose [Mass/Vol] 131 mg/dL High 70-100 [facility] Comment on above: ADA recommended refe rence rangeRandom Glucose Reference Range is dependent on time and content of last meal. Glucose of more than 200 mg/dL in a nonstressed, ambulatory subject supports the diagnosis of Diabetes Mellitus. Order Comment: Reaso n for Exam Umbilical mass;Periumbilical abdominal pain Result Comment: Reading om Glucose Reference Range is dependent on time and content of last meal. Glucose of more than 200 mg/dL in a nonstressed, ambulatory subject supports the diagnosis of Diabetes Mellitus. ADA recommended reference range Performed By: #### H SCRP, CK, CMP, CBC, FE and TIBC, LIPID #### [facility] [address] [place] [address] [place] Hematocrit [Volume Fraction] of Blood by Automated countOrdered By: Kassandra Klein on 09-11-2023 Hematocrit (Bld) [Volume fraction] 43.2 % Normal 34.0-46.4 [facility] Comment on above: Order Comment: Reaso n for Exam Umbilical mass;Periumbilical abdominal pain Performed By: #### H SCRP, CK, CMP, CBC, FE and TIBC, LIPID #### [facility] [address] Hemoglobin [Mass/volume] in BloodOrdered By: Kassandra Klein on 09-11-2023 Hemoglobin (Bld) [Mass/Vol] 14.1 g/dL Normal 11.8-15.4 [facility] Comment on above: Order Comment: Reaso n for Exam Umbilical mass;Periumbilical abdominal pain Performed By: #### H SCRP, CK, CMP, CBC, FE and TIBC, LIPID #### [facility] [address] Leukocytes [#/volume] correc alyse for nucleated erythrocytes in Blood by Automated counOrdered By: Kassandra Klein on 09-11-2023 WBC corrected for nucl RBC Auto (Bld) [#/Vol] 8.2 10*3/uL 3.8-11.6 [facility] Leukocytes [#/volume] in Blo od by Automated countOrdered By: Kassandra Klein on 09-11-2023 WBC (Bld) [#/Vol] 8.2 10*3/uL Normal 3.8-11.6 [facility] Comment on above: Order Comment: Reaso n for Exam Umbilical mass;Periumbilical abdominal pain Performed By: #### H SCRP, CK, CMP, CBC, FE and TIBC, LIPID #### [facility] [address] [place] [address] [place] Lymphocytes [#/volume] in Bl ood by Automated countOrdered By: Kassandra Klein on 09-11-2023 Lymphocytes (Bld) [#/Vol] 2.0 10*3/uL Normal 1.00-4.8 [facility] Comment on above: Order Comment: Reaso n for Exam Umbilical mass;Periumbilical abdominal pain Performed By: #### H SCRP, CK, CMP, CBC, FE and TIBC, LIPID #### [facility] [address] [place] [address] [place] Lymphocytes/100 leukocytes i n Blood by Automated countOrdered By: Kassandra Klein on 09-11-2023 Lymphocytes/100 WBC (Bld) 24.1 % Normal . [facility] Comment on above: Order Comment: Reaso n for Exam Umbilical mass;Periumbilical abdominal pain Performed By: #### H SCRP, CK, CMP, CBC, FE and TIBC, LIPID #### [facility] [address] MCH [Entitic mass] by Automa alyse countOrdered By: Kassandra Klein on 09-11-2023 MCH (RBC) [Entitic mass] 30.5 pg Normal 24.7-34.3 [facility] Comment on above: Order Comment: Reaso n for Exam Umbilical mass;Periumbilical abdominal pain Performed By: #### H SCRP, CK, CMP, CBC, FE and TIBC, LIPID #### [facility] [address] [place] [address] MCHC Auto (RBC) [Mass/Vol]Or dered By: Kassandra Klein on 09-11-2023 MCHC (RBC) [Mass/Vol] 32.6 g/dL 32.0-35.0 [facility] MCV [Entitic volume] by Auto mated countOrdered By: Kassandra Klein on 09-11-2023 MCV (RBC) [Entitic vol] 93.6 fL Normal 80-100 [facility] Comment on above: Order Comment: Reaso n for Exam Umbilical mass;Periumbilical abdominal pain Performed By: #### H SCRP, CK, CMP, CBC, FE and TIBC, LIPID #### [facility] [address] [place] [address] Neutrophils [#/volume] in Bl ood by Automated countOrdered By: Kassandra Klein on 09-11-2023 Neutrophils (Bld) [#/Vol] 5.3 10*3/uL Normal 1.8-7.7 [facility] Comment on above: Order Comment: Reaso n for Exam Umbilical mass;Periumbilical abdominal pain Performed By: #### H SCRP, CK, CMP, CBC, FE and TIBC, LIPID #### [facility] [address] [place] [address] No Panel InformationOrdered By: Kassandra Klein on 09-11-2023 Estimated GFR (CKD-EPI) > 60.0 mL/Min [facility] Creatinine Clearance (Chem N/A [facility] Nucleated erythrocytes [Pres ence] in Blood by Automated countOrdered By: Kassandra Klein on 09-11-2023 Nucleated RBC Auto Ql (Bld) 0.1 /100{WBC} 0-0.5 [facility] Platelet mean volume [Entiti c volume] in Blood by Automated countOrdered By: Kassandra Klein on 09-11-2023 Platelet mean volume (Bld) [Entitic vol] 10.0 fL Normal 6.3-10.7 [facility] Comment on above: Order Comment: Reaso n for Exam Umbilical mass;Periumbilical abdominal pain Performed By: #### H SCRP, CK, CMP, CBC, FE and TIBC, LIPID #### [facility] [address] [place] [address] [place] Platelets [#/volume] in Bloo d by Automated countOrdered By: Kassandra Klein on 09-11-2023 Platelets (Bld) [#/Vol] 318 10*3/uL Normal 150-450 [facility] Comment on above: Order Comment: Reaso n for Exam Umbilical mass;Periumbilical abdominal pain Performed By: #### H SCRP, CK, CMP, CBC, FE and TIBC, LIPID #### [facility] [address] [place] [address] [place] Potassium [Moles/volume] in Serum or PlasmaOrdered By: Kassandra Klein on 09-11-2023 Potassium [Moles/Vol] 4.3 mmol/L Normal 3.5-5.1 [facility] Comment on above: Order Comment: Reaso n for Exam Umbilical mass;Periumbilical abdominal pain Performed By: #### H SCRP, CK, CMP, CBC, FE and TIBC, LIPID #### [facility] [address] [place] [address] [place] Protein [Mass/volume] in Ser um or PlasmaOrdered By: Kassandra Klein on 09-11-2023 Protein [Mass/Vol] 7.7 g/dL Normal 6.4-8.9 [facility] Comment on above: Order Comment: Reaso n for Exam Umbilical mass;Periumbilical abdominal pain Performed By: #### H SCRP, CK, CMP, CBC, FE and TIBC, LIPID #### [facility] [address] Serum globulin measurement b y calculation (mass/volume)Ordered By: Kassandra Klein on 09-11-2023 Globulin (S) [Mass/Vol] 3.2 g/dL Normal [facility] Comment on above: Order Comment: Reaso n for Exam Umbilical mass;Periumbilical abdominal pain Performed By: #### H SCRP, CK, CMP, CBC, FE and TIBC, LIPID #### [facility] [address] Serum or plasma albumin/glob ulin mass ratioOrdered By: Kassandra Klein on 09-11-2023 Albumin/Globulin [Mass ratio] 1.4 {ratio} Normal [facility] Comment on above: Order Comment: Reaso n for Exam Umbilical mass;Periumbilical abdominal pain Performed By: #### H SCRP, CK, CMP, CBC, FE and TIBC, LIPID #### [facility] [address] [place] [address] Serum or plasma anion gap de terminationOrdered By: Kassandra Klein on 09-11-2023 Anion gap [Moles/Vol] 13.5 mmol/L Normal 6.0-15.0 [facility] Comment on above: Order Comment: Reaso n for Exam Umbilical mass;Periumbilical abdominal pain Performed By: #### H SCRP, CK, CMP, CBC, FE and TIBC, LIPID #### [facility] [address] Sodium [Moles/volume] in Ser um or PlasmaOrdered By: Kassandra Klein on 09-11-2023 Sodium [Moles/Vol] 140 mmol/L Normal 136-145 [facility] Comment on above: Order Comment: Reaso n for Exam Umbilical mass;Periumbilical abdominal pain Performed By: #### H SCRP, CK, CMP, CBC, FE and TIBC, LIPID #### [facility] [address] Urea nitrogen [Mass/volume] in Serum or PlasmaOrdered By: Kassandra Klein on 09-11-2023 Urea nitrogen [Mass/Vol] 16 mg/dL Normal 7-25 [facility] Comment on above: Order Comment: Reaso n for Exam Umbilical mass;Periumbilical abdominal pain Performed By: #### H SCRP, CK, CMP, CBC, FE and TIBC, LIPID #### [facility] [address] [place] [address] [place] Alanine aminotransferase [En zymatic activity/volume] in Serum or PlasmaOrdered By: Kassandra Klein on 04-17-2023 ALT [Catalytic activity/Vol] 18 U/L Normal 7-52 [facility] Comment on above: Performed By: #### H SCRP, CK, CMP, CBC, FE and TIBC, LIPID #### [facility] [address] [place] [address] [place] Albumin [Mass/volume] in Ser um or Plasma by Bromocresol green (BCG) dye binding methoOrdered By: Kassandra Klein on 04-17-2023 Albumin BCG dye [Mass/Vol] 4.5 g/dL 3.5-5.7 [facility] Alkaline phosphatase [Enzyma tic activity/volume] in Serum or PlasmaOrdered By: Kassandra Klein on 04-17-2023 ALP [Catalytic activity/Vol] 77 U/L Normal 34-104 [facility] Comment on above: Performed By: #### H SCRP, CK, CMP, CBC, FE and TIBC, LIPID #### [facility] [address] [place] [address] [place] Aspartate aminotransferase [ Enzymatic activity/volume] in Serum or PlasmaOrdered By: Kassandra Klein on 04-17-2023 AST [Catalytic activity/Vol] 19 U/L Normal 13-39 [facility] Comment on above: Performed By: #### H SCRP, CK, CMP, CBC, FE and TIBC, LIPID #### [place] [address] [place] Automated basophil %Ordered By: Kassandra Klein on 04-17-2023 Basophils/100 WBC (Bld) 0.6 % Normal . [facility] Comment on above: Performed By: #### H SCRP, CK, CMP, CBC, FE and TIBC, LIPID #### [address] Automated basophil countOrde red By: Kassandra Klein on 04-17-2023 Basophils (Bld) [#/Vol] 0.1 10*3/uL Normal 0.0-0.2 [facility] Comment on above: Result Comment: PERF ORMED BY: [place] [address] PATHOLOGIST BEAM DYER RECESSED VAT DAYANA MONTES M.D. Performed By: #### H SCRP, CK, CMP, CBC, FE and TIBC, LIPID #### [address] Automated blood monocyte cou ntOrdered By: Kassandra Klein on 04-17-2023 Monocytes (Bld) [#/Vol] 0.6 10*3/uL Normal 0.0-0.8 [facility] Comment on above: Performed By: #### H SCRP, CK, CMP, CBC, FE and TIBC, LIPID #### [address] Automated eosinophil %Ordere d By: Kassandra Klein on 04-17-2023 Eosinophils/100 WBC (Bld) 2.5 % Normal . [facility] Comment on above: Performed By: #### H SCRP, CK, CMP, CBC, FE and TIBC, LIPID #### [address] Automated eosinophil countOr dered By: Kassandra Klein on 04-17-2023 Eosinophils (Bld) [#/Vol] 0.2 10*3/uL Normal 0.0-0.45 [facility] Comment on above: Performed By: #### H SCRP, CK, CMP, CBC, FE and TIBC, LIPID #### [address] Automated monocyte %Ordered By: Kassandra Klein on 04-17-2023 Monocytes/100 WBC (Bld) 7.0 % Normal . [facility] Comment on above: Performed By: #### H SCRP, CK, CMP, CBC, FE and TIBC, LIPID #### [facility] [address] Automated neutrophil %Ordere d By: Kassandra Klein on 04-17-2023 Neutrophils/100 WBC (Bld) 60.4 % Normal . [facility] Comment on above: Performed By: #### H SCRP, CK, CMP, CBC, FE and TIBC, LIPID #### [facility] [address] Bilirubin.total [Mass/volume ] in Serum or PlasmaOrdered By: Kassandra Klein on 04-17-2023 Bilirubin [Mass/Vol] 0.4 mg/dL Normal 0.3-1.0 [facility] Comment on above: Performed By: #### H SCRP, CK, CMP, CBC, FE and TIBC, LIPID #### [facility] [address] BioFire Not Detectedon 04-17 BioFire Not Detected Not detected Normal Not Detecte [facility] Comment on above: Result Comment: This is a duplicate RP2.1 COVID (PCR) result to be used for statistical tracking purpose only. PERFORMED BY: [place] [address] PATHOLOGIST BEAM DYER RECESSED VAT DAYANA MONTES M.D. Performed By: #### B IOFIRECOVNOTDE, RESP PANEL UPP. #### [address] C reactive protein [Mass/vol ume] in Serum or Plasma by High sensitivity methodOrdered By: Kassandra Klein on 04-17-2023 CRP High sensitivity method [Mass/Vol] 6.3 mg/L 0.0-0.9 [facility] Comment on above: Cardiovascular Risk Classification [...] GINETTE+non-probe Ql (Nph) Not detected Not Detecte [facility] Comment on above: This is a duplicate RP2.1 COVID (PCR) result to be used for statistical tracking purpose only. Calcium [Mass/volume] in Ser um or PlasmaOrdered By: Kassandra Klein on 04-17-2023 Calcium [Mass/Vol] 9.9 mg/dL Normal 8.6-10.3 [facility] Comment on above: Performed By: #### H SCRP, CK, CMP, CBC, FE and TIBC, LIPID #### [facility] [address] [place] [address] [place] Carbon dioxide, total [Moles /volume] in Serum or PlasmaOrdered By: Kassandra Klein on 04-17-2023 CO2 [Moles/Vol] 23.4 mmol/L Normal 21.0-31.0 [facility] Comment on above: Performed By: #### H SCRP, CK, CMP, CBC, FE and TIBC, LIPID #### [facility] [address] [place] [address] [place] Chloride [Moles/volume] in S lily or PlasmaOrdered By: Kassandra Klein on 04-17-2023 Chloride [Moles/Vol] 109 mmol/L High 98-107 [facility] Comment on above: Performed By: #### H SCRP, CK, CMP, CBC, FE and TIBC, LIPID #### [facility] [address] [place] [address] [place] Cholesterol [Mass/volume] in Serum or PlasmaOrdered By: Kassandra Klein on 04-17-2023 Cholesterol [Mass/Vol] 185 mg/dL Normal 140-200 [facility] Comment on above: Chol less than 200 m g/dl low riskChol 201-239 mg/dl borderline riskChol 240 mg/dl and greater high risk Result Comment: Chol less than 200 mg/dl low risk Chol 201-239 mg/dl borderline risk Chol 240 mg/dl and greater high risk Performed By: #### H SCRP, CK, CMP, CBC, FE and TIBC, LIPID #### [facility] [address] Cholesterol in LDL Calc [Mas s/Vol]Ordered By: Kassandra Klein on 04-17-2023 Cholesterol in LDL [Mass/Vol] 118 mg/dL 0-100 [facility] Comment on above: LDL ATP III CLASSIFI CATIONLDL less than 100 mg/dL OptimalLDL 100-129 mg/dL Near or above optimalLDL 130-159 mg/dL Borderline highLDL 160-189 mg/dL HighLDL greater than 189 mg/dL Very high Cholesterol in VLDL Calc [Ma ss/Vol]Ordered By: Kassandra Klein on 04-17-2023 Cholesterol in VLDL [Mass/Vol] 24 mg/dL [facility] Complete Blood Count Auto Di ffon 04-17-2023 Mean Corpuscular HGB Conc 33.6 g/dL Normal 32.0-35.0 [facility] Comment on above: Performed By: #### H SCRP, CK, CMP, CBC, FE and TIBC, LIPID #### [facility] [address] NRBC% 0.1 /100{WBC} Normal 0-0.5 [facility] Comment on above: Performed By: #### H SCRP, CK, CMP, CBC, FE and TIBC, LIPID #### [facility] [address] Comprehensive Metabolic Pane claire 04-17-2023 Albumin [Mass/Vol] 4.5 g/dL Normal 3.5-5.7 [facility] Comment on above: Performed By: #### H SCRP, CK, CMP, CBC, FE and TIBC, LIPID #### [facility] [address] GFR/1.73 sq M.predicted MDRD (S/P/Bld) [Vol rate/Area] mL/min/{1.73_m2} Normal [facility] Comment on above: Performed By: #### H SCRP, CK, CMP, CBC, FE and TIBC, LIPID #### [address] Creatine kinase [Enzymatic a ctivity/volume] in Serum or PlasmaOrdered By: Kassandra Klein on 04-17-2023 CK [Catalytic activity/Vol] 180 U/L Normal 30-223 [facility] Comment on above: Result Comment: PERF ORMED BY: [place] [address] PATHOLOGIST BEAM DYER RECESSED VAT DAYANA MONTES M.D. Performed By: #### H SCRP, CK, CMP, CBC, FE and TIBC, LIPID #### [address] Creatinine [Mass/volume] in Serum or PlasmaOrdered By: Kassandra Klein on 04-17-2023 Creatinine [Mass/Vol] 0.78 mg/dL Normal 0.60-1.20 [facility] Comment on above: Performed By: #### H SCRP, CK, CMP, CBC, FE and TIBC, LIPID #### [address] Erythrocyte distribution wid th [Ratio] by Automated countOrdered By: Kassandra Klein on 04-17-2023 Erythrocyte distribution width (RBC) [Ratio] 15.3 % Normal 11.9-15.3 [facility] Comment on above: Performed By: #### H SCRP, CK, CMP, CBC, FE and TIBC, LIPID #### [place] [address] [place] Erythrocytes [#/volume] in B lood by Automated countOrdered By: Kassandra Klein on 04-17-2023 RBC (Bld) [#/Vol] 4.44 10*6/uL Normal 3.60-5.00 [facility] Comment on above: Performed By: #### H SCRP, CK, CMP, CBC, FE and TIBC, LIPID #### [facility] [address] [place] [address] [place] Glucose [Mass/volume] in Ser um or PlasmaOrdered By: Kassandra Klein on 04-17-2023 Glucose [Mass/Vol] 131 mg/dL High 70-100 [facility] Comment on above: ADA recommended refe rence rangeRandom Glucose Reference Range is dependent on time and content of last meal. Glucose of more than 200 mg/dL in a nonstressed, ambulatory subject supports the diagnosis of Diabetes Mellitus. Result Comment: Reading om Glucose Reference Range is dependent on time and content of last meal. Glucose of more than 200 mg/dL in a nonstressed, ambulatory subject supports the diagnosis of Diabetes Mellitus. ADA recommended reference range Performed By: #### H SCRP, CK, CMP, CBC, FE and TIBC, LIPID #### [facility] [address] Hematocrit [Volume Fraction] of Blood by Automated countOrdered By: Kassandra Klein on 04-17-2023 Hematocrit (Bld) [Volume fraction] 40.8 % Normal 34.0-46.4 [facility] Comment on above: Performed By: #### H SCRP, CK, CMP, CBC, FE and TIBC, LIPID #### [facility] [address] Hemoglobin [Mass/volume] in BloodOrdered By: Kassandra Klein on 04-17-2023 Hemoglobin (Bld) [Mass/Vol] 13.7 g/dL Normal 11.8-15.4 [facility] Comment on above: Performed By: #### H SCRP, CK, CMP, CBC, FE and TIBC, LIPID #### [facility] [address] [place] [address] [place] High Sensitive CRPon 023 High Sensitive CRP 6.3 mg/L High 0.0-0.9 [facility] Comment on above: Result Comment: [...] for estimation of CVD risk. PERFORMED BY: [place] [address] PATHOLOGIST BEAM DYER RECESSED VAT DAYANA MONTES M.D. Performed By: #### H SCRP, CK, CMP, CBC, FE and TIBC, LIPID #### [facility] [address] [place] [address] Iron [Mass/volume] in Serum or PlasmaOrdered By: Kassandra Vázquezc on 04-17-2023 Iron [Mass/Vol] 91 ug/dL Normal 50-212 [facility] Comment on above: Performed By: #### H SCRP, CK, CMP, CBC, FE and TIBC, LIPID #### [facility] [address] [place] [address] Iron and TIBC Profileon 03-30 % Iron Saturation 22.4 % Normal 20-50 [facility] Comment on above: Performed By: #### H SCRP, CK, CMP, CBC, FE and TIBC, LIPID #### [address] Total Iron Binding Capacity 407 ug/dL Normal 255-450 [facility] Comment on above: Performed By: #### H SCRP, CK, CMP, CBC, FE and TIBC, LIPID #### [place] [address] [place] Iron binding capacity [Mass/ volume] in Serum or PlasmaOrdered By: Kassandra Sealssic on 04-17-2023 Iron binding capacity [Mass/Vol] 407 ug/dL 255-450 [facility] Iron saturation [Mass Fracti on] in Serum or PlasmaOrdered By: Kassandra Spasic on 04-17-2023 Iron saturation [Mass fraction] 22.4 % 20-50 [facility] Leukocytes [#/volume] correc alyse for nucleated erythrocytes in Blood by Automated counOrdered By: Kassandra Klein on 04-17-2023 WBC corrected for nucl RBC Auto (Bld) [#/Vol] 8.8 10*3/uL 3.8-11.6 [facility] Leukocytes [#/volume] in Blo od by Automated countOrdered By: Kassandra Klein on 04-17-2023 WBC (Bld) [#/Vol] 8.8 10*3/uL Normal 3.8-11.6 [facility] Comment on above: Performed By: #### H SCRP, CK, CMP, CBC, FE and TIBC, LIPID #### [facility] [address] Lipid Panelon 04-17-2023 LDL Cholesterol,Calculated 118 mg/dL High 0-100 [facility] Comment on above: Result Comment: LDL ATP III CLASSIFICATION LDL less than 100 mg/dL Optimal LDL 100-129 mg/dL Near or above optimal LDL 130-159 mg/dL Borderline high LDL 160-189 mg/dL High LDL greater than 189 mg/dL Very high Performed By: #### H SCRP, CK, CMP, CBC, FE and TIBC, LIPID #### [facility] [address] Triglyceride w/Reflex 122 mg/dL Normal 0-149 [facility] Comment on above: Result Comment: TRIG ATP III CLASSIFICATION TRIG less than 150 mg/dL Normal TRIG 150-199 mg/dL Borderline high TRIG 200-500 mg/dL High TRIG greater than 500 mg/dL Very high Standard traceable to the Center for Disease Conrtrol and Prevention (CDC) test method. Performed By: #### H SCRP, CK, CMP, CBC, FE and TIBC, LIPID #### [facility] [address] VLDL CHOLESTEROL 24 mg/dL Normal [facility] Comment on above: Performed By: #### H SCRP, CK, CMP, CBC, FE and TIBC, LIPID #### [facility] [address] Lymphocytes [#/volume] in Bl ood by Automated countOrdered By: Kassandra Klein on 04-17-2023 Lymphocytes (Bld) [#/Vol] 2.6 10*3/uL Normal 1.00-4.8 [facility] Comment on above: Performed By: #### H SCRP, CK, CMP, CBC, FE and TIBC, LIPID #### [facility] [address] Lymphocytes/100 leukocytes i n Blood by Automated countOrdered By: Kassandra Klein on 04-17-2023 Lymphocytes/100 WBC (Bld) 29.5 % Normal . [facility] Comment on above: Performed By: #### H SCRP, CK, CMP, CBC, FE and TIBC, LIPID #### [facility] [address] MCH [Entitic mass] by Automa alyse countOrdered By: Kassandra Klein on 04-17-2023 MCH (RBC) [Entitic mass] 30.9 pg Normal 24.7-34.3 [facility] Comment on above: Performed By: #### H SCRP, CK, CMP, CBC, FE and TIBC, LIPID #### [facility] [address] [place] [address] MCHC Auto (RBC) [Mass/Vol]Or dered By: Kassandra Klein on 04-17-2023 MCHC (RBC) [Mass/Vol] 33.6 g/dL 32.0-35.0 [facility] MCV [Entitic volume] by Auto mated countOrdered By: Kassandra Klein on 04-17-2023 MCV (RBC) [Entitic vol] 91.8 fL Normal 80-100 [facility] Comment on above: Performed By: #### H SCRP, CK, CMP, CBC, FE and TIBC, LIPID #### [facility] [address] [place] [address] Neutrophils [#/volume] in Bl ood by Automated countOrdered By: Kassandra Klein on 04-17-2023 Neutrophils (Bld) [#/Vol] 5.3 10*3/uL Normal 1.8-7.7 [facility] Comment on above: Performed By: #### H SCRP, CK, CMP, CBC, FE and TIBC, LIPID #### [facility] [address] No Panel InformationOrdered By: Kassandra Klein on 04-17-2023 Estimated GFR (CKD-EPI) > 60.0 mL/Min [facility] Creatinine Clearance (Chem N/A [facility] Nucleated erythrocytes [Pres ence] in Blood by Automated countOrdered By: Kassandra Klein on 04-17-2023 Nucleated RBC Auto Ql (Bld) 0.1 /100{WBC} 0-0.5 [facility] Platelet mean volume [Entiti c volume] in Blood by Automated countOrdered By: Kassandra Klein on 04-17-2023 Platelet mean volume (Bld) [Entitic vol] 10.0 fL Normal 6.3-10.7 [facility] Comment on above: Performed By: #### H SCRP, CK, CMP, CBC, FE and TIBC, LIPID #### [facility] [address] [place] [address] Platelets [#/volume] in Bloo d by Automated countOrdered By: Kassandra Klein on 04-17-2023 Platelets (Bld) [#/Vol] 274 10*3/uL Normal 150-450 [facility] Comment on above: Performed By: #### H SCRP, CK, CMP, CBC, FE and TIBC, LIPID #### [facility] [address] [place] [address] [place] Potassium [Moles/volume] in Serum or PlasmaOrdered By: Kassandra Klein on 04-17-2023 Potassium [Moles/Vol] 4.4 mmol/L Normal 3.5-5.1 [facility] Comment on above: Performed By: #### H SCRP, CK, CMP, CBC, FE and TIBC, LIPID #### [place] [address] [place] Protein [Mass/volume] in Ser um or PlasmaOrdered By: Kassandra Klein on 04-17-2023 Protein [Mass/Vol] 7.6 g/dL Normal 6.4-8.9 [facility] Comment on above: Performed By: #### H SCRP, CK, CMP, CBC, FE and TIBC, LIPID #### [facility] [address] Respiratory (Upper) Panel, P CRon 04-17-2023 [...] A H3 Blank Space -- PERFORMED BY: [facility] [address] [facility] [place] [address] PATHOLOGIST BEAM DYER RECESSED VAT DAYANA MONTES M.D. Normal [facility] Comment on above: Performed By: #### B IOFIRECOVNOTDE, RESP PANEL UPP. #### [facility] [address] Respiratory pathogens DNA an d RNA panel - Nasopharynx by GINETTE with non-probe detectionOrdered By: Kassandra Klein on 04-17-2023 Respiratory pathogens DNA and RNA panel GINETTE+non-probe (Nph) [facility] Serum globulin measurement b y calculation (mass/volume)Ordered By: Kassandra Klein on 04-17-2023 Globulin (S) [Mass/Vol] 3.1 g/dL Normal [facility] Comment on above: Performed By: #### H SCRP, CK, CMP, CBC, FE and TIBC, LIPID #### [facility] [address] Serum or plasma albumin/glob ulin mass ratioOrdered By: Kassandra Klein on 04-17-2023 Albumin/Globulin [Mass ratio] 1.5 {ratio} Normal [facility] Comment on above: Performed By: #### H SCRP, CK, CMP, CBC, FE and TIBC, LIPID #### [facility] [address] Serum or plasma anion gap de terminationOrdered By: Kassandra Klein on 04-17-2023 Anion gap [Moles/Vol] 13.0 mmol/L Normal 6.0-15.0 [facility] Comment on above: Performed By: #### H SCRP, CK, CMP, CBC, FE and TIBC, LIPID #### [facility] [address] Serum or plasma high density lipoprotein (HDL) cholesterol measurementOrdered By: Kassandra Klein on 04-17-2023 Cholesterol in HDL [Mass/Vol] 43 mg/dL Normal 23-92 [facility] Comment on above: HDL CHOL ATP-III CLA SSIFICATION Cardiovascular RiskHDL > or equal to 60 mg/dL LOWHDL < 40 mg/dL HIGH Result Comment: HDL CHOL ATP-III CLASSIFICATION Cardiovascular Risk HDL > or equal to 60 mg/dL LOW HDL < 40 mg/dL HIGH Performed By: #### H SCRP, CK, CMP, CBC, FE and TIBC, LIPID #### [facility] [address] Serum or plasma total choles terol/high density lipoprotein (HDL) cholesterol mass ratOrdered By: Kassandra Klein on 04-17-2023 Cholesterol.total/Alba sterol in HDL [Mass ratio] 4.3 {ratio} Normal <5.0 [facility] Comment on above: Result Comment: PERF ORMED BY: [place] [address] PATHOLOGIST BEAM DYER RECESSED VAT DAYANA MONTES M.D. Performed By: #### H SCRP, CK, CMP, CBC, FE and TIBC, LIPID #### [facility] [address] [place] [address] [place] Sodium [Moles/volume] in Ser um or PlasmaOrdered By: Kassandra Klein on 04-17-2023 Sodium [Moles/Vol] 141 mmol/L Normal 136-145 [facility] Comment on above: Performed By: #### H SCRP, CK, CMP, CBC, FE and TIBC, LIPID #### [facility] [address] [place] [address] [place] Transferrin [Mass/volume] in Serum or PlasmaOrdered By: Kassandra Klein on 04-17-2023 Transferrin [Mass/Vol] 291 mg/dL Normal 203-362 [facility] Comment on above: Performed By: #### H SCRP, CK, CMP, CBC, FE and TIBC, LIPID #### [facility] [address] [place] [address] [place] Triglyceride [Mass/volume] i n Serum or PlasmaOrdered By: Kassandra Klein on 04-17-2023 Triglyceride [Mass/Vol] 122 mg/dL 0-149 [facility] Comment on above: TRIG ATP III CLASSIF ICATIONTRIG less than 150 mg/dL NormalTRIG 150-199 mg/dL Borderline highTRIG 200-500 mg/dL High TRIG greater than 500 mg/dL Very highStandard traceable to the Center for Disease Conrtrol and Prevention (CDC) test method. Urea nitrogen [Mass/volume] in Serum or PlasmaOrdered By: Kassandra Klein on 04-17-2023 Urea nitrogen [Mass/Vol] 16 mg/dL Normal 7-25 [facility] Comment on above: Performed By: #### H SCRP, CK, CMP, CBC, FE and TIBC, LIPID #### [facility] [address] [place] [address] [place] XR ankle LT min 3V*on 2022 XR ankle LT min 3V* [facility] [address] [place] [address] XRay Report Signed Patient: London Velasquez MR#: [id number] : 1965 Acct:[id number] Age/Sex: 58 / F ADM Date: 04/16/23 Loc: XD Room: Type: [facility] Attending Dr: Kassandra HADLEY Copies to: JOMAR [...] Stephan Wilson M.D.04/16/2023 1:46 PM Dictation Location: [place] [address] Transcribed By: [facility] 04/16/23 1346 Dictated By: Stephan Wilson DO 04/16/23 1343 Signed By: 04/16/23 1346 Normal [facility] Automated basophil %Ordered By: Kassandra Klein on 03-20-2023 Basophils/100 WBC (Bld) 0.6 % Normal . [facility] Comment on above: Performed By: #### H SCRP, CK, CMP, CBC, FE and TIBC, LIPID #### [facility] [address] [place] [address] [facility] Automated basophil countOrde red By: Kassandra Klein on 03-20-2023 Basophils (Bld) [#/Vol] 0.1 10*3/uL Normal 0.0-0.2 [facility] Comment on above: Result Comment: PERF ORMED BY: [place] [address] PATHOLOGIST BEAM DYER RECESSED VAT DAYAAN MONTES M.D. Performed By: #### H SCRP, CK, CMP, CBC, FE and TIBC, LIPID #### [address] Automated blood monocyte cou ntOrdered By: Kassandra Vázquezc on 03-20-2023 Monocytes (Bld) [#/Vol] 0.7 10*3/uL Normal 0.0-0.8 [facility] Comment on above: Performed By: #### H SCRP, CK, CMP, CBC, FE and TIBC, LIPID #### [address] Automated eosinophil %Ordere d By: Kassandra Spasic on 03-20-2023 Eosinophils/100 WBC (Bld) 2.0 % Normal . [facility] Comment on above: Performed By: #### H SCRP, CK, CMP, CBC, FE and TIBC, LIPID #### [address] Automated eosinophil countOr dered By: Kassandra Klein on 03-20-2023 Eosinophils (Bld) [#/Vol] 0.2 10*3/uL Normal 0.0-0.45 [facility] Comment on above: Performed By: #### H SCRP, CK, CMP, CBC, FE and TIBC, LIPID #### [address] Automated monocyte %Ordered By: Kassandra Vázquezc on 03-20-2023 Monocytes/100 WBC (Bld) 5.9 % Normal . [facility] Comment on above: Performed By: #### H SCRP, CK, CMP, CBC, FE and TIBC, LIPID #### [address] Automated neutrophil %Ordere d By: Kassandra Gurpreetc on 03-20-2023 Neutrophils/100 WBC (Bld) 70.4 % Normal . [facility] Comment on above: Performed By: #### H SCRP, CK, CMP, CBC, FE and TIBC, LIPID #### [address] Complete Blood Count Auto Di ffon 03-20-2023 Mean Corpuscular HGB Conc 32.4 g/dL Normal 32.0-35.0 [facility] Comment on above: Performed By: #### H SCRP, CK, CMP, CBC, FE and TIBC, LIPID #### [address] NRBC% 0.0 /100{WBC} Normal 0-0.5 [facility] Comment on above: Performed By: #### H SCRP, CK, CMP, CBC, FE and TIBC, LIPID #### [address] Erythrocyte distribution wid th [Ratio] by Automated countOrdered By: Kassandra Klein on 03-20-2023 Erythrocyte distribution width (RBC) [Ratio] 16.0 % High 11.9-15.3 [facility] Comment on above: Performed By: #### H SCRP, CK, CMP, CBC, FE and TIBC, LIPID #### [address] Erythrocytes [#/volume] in B lood by Automated countOrdered By: Kassandra Klein on 03-20-2023 RBC (Bld) [#/Vol] 4.48 10*6/uL Normal 3.60-5.00 [facility] Comment on above: Performed By: #### H SCRP, CK, CMP, CBC, FE and TIBC, LIPID #### [address] Hematocrit [Volume Fraction] of Blood by Automated countOrdered By: Kassandra Klein on 03-20-2023 Hematocrit (Bld) [Volume fraction] 41.1 % Normal 34.0-46.4 [facility] Comment on above: Performed By: #### H SCRP, CK, CMP, CBC, FE and TIBC, LIPID #### [facility] [address] Hemoglobin [Mass/volume] in BloodOrdered By: Kassandra Klein on 03-20-2023 Hemoglobin (Bld) [Mass/Vol] 13.4 g/dL Normal 11.8-15.4 [facility] Comment on above: Performed By: #### H SCRP, CK, CMP, CBC, FE and TIBC, LIPID #### [facility] [address] Leukocytes [#/volume] correc alyse for nucleated erythrocytes in Blood by Automated counOrdered By: Kassandra Klein on 03-20-2023 WBC corrected for nucl RBC Auto (Bld) [#/Vol] 11.1 10*3/uL 3.8-11.6 [facility] Leukocytes [#/volume] in Blo od by Automated countOrdered By: Kassandra Klein on 03-20-2023 WBC (Bld) [#/Vol] 11.1 10*3/uL Normal 3.8-11.6 [facility] Comment on above: Performed By: #### H SCRP, CK, CMP, CBC, FE and TIBC, LIPID #### [place] [address] [place] Lymphocytes [#/volume] in Bl ood by Automated countOrdered By: Kassandra Klein on 03-20-2023 Lymphocytes (Bld) [#/Vol] 2.3 10*3/uL Normal 1.00-4.8 [facility] Comment on above: Performed By: #### H SCRP, CK, CMP, CBC, FE and TIBC, LIPID #### [facility] [address] [place] [address] [place] Lymphocytes/100 leukocytes i n Blood by Automated countOrdered By: Kassandra Klein on 03-20-2023 Lymphocytes/100 WBC (Bld) 21.1 % Normal . [facility] Comment on above: Performed By: #### H SCRP, CK, CMP, CBC, FE and TIBC, LIPID #### [facility] [address] [address] MCH [Entitic mass] by Automa alyse countOrdered By: Kassandra Klein on 03-20-2023 MCH (RBC) [Entitic mass] 29.8 pg Normal 24.7-34.3 [facility] Comment on above: Performed By: #### H SCRP, CK, CMP, CBC, FE and TIBC, LIPID #### [facility] [address] MCHC Auto (RBC) [Mass/Vol]Or dered By: Kassandra Klein on 03-20-2023 MCHC (RBC) [Mass/Vol] 32.4 g/dL 32.0-35.0 [facility] MCV [Entitic volume] by Auto mated countOrdered By: Kassanrda Klein on 03-20-2023 MCV (RBC) [Entitic vol] 91.8 fL Normal 80-100 [facility] Comment on above: Performed By: #### H SCRP, CK, CMP, CBC, FE and TIBC, LIPID #### [facility] [address] [place] [address] Neutrophils [#/volume] in Bl ood by Automated countOrdered By: Kassandra Klein on 03-20-2023 Neutrophils (Bld) [#/Vol] 7.8 10*3/uL High 1.8-7.7 [facility] Comment on above: Performed By: #### H SCRP, CK, CMP, CBC, FE and TIBC, LIPID #### [facility] [address] [place] [address] Nucleated erythrocytes [Pres ence] in Blood by Automated countOrdered By: Kassandra Klein on 03-20-2023 Nucleated RBC Auto Ql (Bld) 0.0 /100{WBC} 0-0.5 [facility] Platelet mean volume [Entiti c volume] in Blood by Automated countOrdered By: Kassandra Klein on 03-20-2023 Platelet mean volume (Bld) [Entitic vol] 11.3 fL High 6.3-10.7 [facility] Comment on above: Performed By: #### H SCRP, CK, CMP, CBC, FE and TIBC, LIPID #### [facility] [address] Platelets [#/volume] in Bloo d by Automated countOrdered By: Kassandra Klein on 03-20-2023 Platelets (Bld) [#/Vol] 283 10*3/uL Normal 150-450 [facility] Comment on above: Performed By: #### H SCRP, CK, CMP, CBC, FE and TIBC, LIPID #### [facility] [address] Alanine aminotransferase [En zymatic activity/volume] in Serum or PlasmaOrdered By: Kassandra Klein on 11-28-2022 ALT [Catalytic activity/Vol] 24 U/L 7-52 [facility] Albumin [Mass/volume] in Ser um or Plasma by Bromocresol green (BCG) dye binding methoOrdered By: Kassandra Klein on 11-28-2022 Albumin BCG dye [Mass/Vol] 4.4 g/dL 3.5-5.7 [facility] Alkaline phosphatase [Enzyma tic activity/volume] in Serum or PlasmaOrdered By: Kassandra Klein on 11-28-2022 ALP [Catalytic activity/Vol] 83 U/L 34-104 [facility] Aspartate aminotransferase [ Enzymatic activity/volume] in Serum or PlasmaOrdered By: Kassandra Klein on 11-28-2022 AST [Catalytic activity/Vol] 22 U/L 13-39 [facility] Basophils Auto (Bld) [#/Vol] Ordered By: Kassandra Klein on 11-28-2022 Basophils (Bld) [#/Vol] 0.1 10*3/uL 0.0-0.2 [facility] Basophils/100 WBC Auto (Bld) Ordered By: Kassandra Klein on 11-28-2022 Basophils/100 WBC (Bld) 0.6 % . [facility] Bilirubin.total [Mass/volume ] in Serum or PlasmaOrdered By: Kassandra Klein on 11-28-2022 Bilirubin [Mass/Vol] 0.6 mg/dL 0.3-1.0 [facility] Calcium [Mass/volume] in Ser um or PlasmaOrdered By: Kassandra Klein on 11-28-2022 Calcium [Mass/Vol] 9.6 mg/dL 8.6-10.3 [facility] Carbon dioxide, total [Moles /volume] in Serum or PlasmaOrdered By: Kassandra Klein on 11-28-2022 CO2 [Moles/Vol] 22.7 mmol/L 21.0-31.0 [facility] Chloride [Moles/volume] in S lily or PlasmaOrdered By: Kassandra Klein on 11-28-2022 Chloride [Moles/Vol] 106 mmol/L 98-107 [facility] Cholesterol [Mass/volume] in Serum or PlasmaOrdered By: Kassandra Klein on 11-28-2022 Cholesterol [Mass/Vol] 139 mg/dL 140-200 [facility] Comment on above: Chol less than 200 m g/dl low riskChol 201-239 mg/dl borderline riskChol 240 mg/dl and greater high risk Cholesterol in LDL Calc [Mas s/Vol]Ordered By: Kassandra Klein on 11-28-2022 Cholesterol in LDL [Mass/Vol] 71 mg/dL 0-100 [facility] Comment on above: LDL ATP III CLASSIFI CATIONLDL less than 100 mg/dL OptimalLDL 100-129 mg/dL Near or above optimalLDL 130-159 mg/dL Borderline highLDL 160-189 mg/dL HighLDL greater than 189 mg/dL Very high Cholesterol in VLDL Calc [Ma ss/Vol]Ordered By: Kassandra Klein on 11-28-2022 Cholesterol in VLDL [Mass/Vol] 17 mg/dL [facility] Creatinine [Mass/volume] in Serum or PlasmaOrdered By: Kassandra Klein on 11-28-2022 Creatinine [Mass/Vol] 0.69 mg/dL 0.60-1.20 [facility] Eosinophils Auto (Bld) [#/Vo l]Ordered By: Kassandra Klein on 11-28-2022 Eosinophils (Bld) [#/Vol] 0.1 10*3/uL 0.0-0.45 [facility] Eosinophils/100 WBC Auto (Bl d)Ordered By: Kassandra Klein on 11-28-2022 Eosinophils/100 WBC (Bld) 1.3 % . [facility] Erythrocyte distribution wid th Auto (RBC) [Ratio]Ordered By: Kassandra Klein on 11-28-2022 Erythrocyte distribution width (RBC) [Ratio] 14.6 % 11.9-15.3 [facility] Globulin Calc (S) [Mass/Vol] Ordered By: Kassandra Klein on 11-28-2022 Globulin (S) [Mass/Vol] 3.2 g/dL [facility] Glucose [Mass/volume] in Ser um or PlasmaOrdered By: Kassandra Klein on 11-28-2022 Glucose [Mass/Vol] 144 mg/dL 70-100 [facility] Comment on above: ADA recommended refe rence rangeRandom Glucose Reference Range is dependent on time and content of last meal. Glucose of more than 200 mg/dL in a nonstressed, ambulatory subject supports the diagnosis of Diabetes Mellitus. Hematocrit Auto (Bld) [Volum e fraction]Ordered By: Kassandra Klein on 11-28-2022 Hematocrit (Bld) [Volume fraction] 40.4 % 34.0-46.4 [facility] Hemoglobin [Mass/volume] in BloodOrdered By: Kassandra Klein on 11-28-2022 Hemoglobin (Bld) [Mass/Vol] 13.5 g/dL 11.8-15.4 [facility] Iron [Mass/volume] in Serum or PlasmaOrdered By: Kassandra Klein on 11-28-2022 Iron [Mass/Vol] 76 ug/dL 50-212 [facility] Iron binding capacity [Mass/ volume] in Serum or PlasmaOrdered By: Kassandra Klein on 11-28-2022 Iron binding capacity [Mass/Vol] 458 ug/dL 255-450 [facility] Iron saturation [Mass Fracti on] in Serum or PlasmaOrdered By: Kassandra Klein on 11-28-2022 Iron saturation [Mass fraction] 16.6 % 20-50 [facility] Leukocytes [#/volume] correc alyse for nucleated erythrocytes in Blood by Automated counOrdered By: Kassandra Klein on 11-28-2022 WBC corrected for nucl RBC Auto (Bld) [#/Vol] 10.9 10*3/uL 3.8-11.6 [facility] Lymphocytes Auto (Bld) [#/Vo l]Ordered By: Kassandra Klein on 11-28-2022 Lymphocytes (Bld) [#/Vol] 2.4 10*3/uL 1.00-4.8 [facility] Lymphocytes/100 WBC Auto (Bl d)Ordered By: Kassandra Klein on 11-28-2022 Lymphocytes/100 WBC (Bld) 22.3 % . [facility] MCH Auto (RBC) [Entitic mass ]Ordered By: Kassandra Klein on 11-28-2022 MCH (RBC) [Entitic mass] 30.7 pg 24.7-34.3 [facility] MCHC Auto (RBC) [Mass/Vol]Or dered By: Kassandra Klein on 11-28-2022 MCHC (RBC) [Mass/Vol] 33.4 g/dL 32.0-35.0 [facility] MCV Auto (RBC) [Entitic vol] Ordered By: Kassandra Klein on 11-28-2022 MCV (RBC) [Entitic vol] 92.0 fL 80-100 [facility] Monocytes Auto (Bld) [#/Vol] Ordered By: Kassandra Klein on 11-28-2022 Monocytes (Bld) [#/Vol] 0.6 10*3/uL 0.0-0.8 [facility] Monocytes/100 WBC Auto (Bld) Ordered By: Kassandra Klein on 11-28-2022 Monocytes/100 WBC (Bld) 5.4 % . [facility] Neutrophils Auto (Bld) [#/Vo l]Ordered By: Kassandra Klein on 11-28-2022 Neutrophils (Bld) [#/Vol] 7.7 10*3/uL 1.8-7.7 [facility] Neutrophils/100 WBC Auto (Bl d)Ordered By: Kassandra Klein on 11-28-2022 Neutrophils/100 WBC (Bld) 70.4 % . [facility] No Panel InformationOrdered By: Kassandra Klein on 11-28-2022 Estimated GFR (CKD-EPI) > 60.0 mL/Min [facility] Creatinine Clearance (Chem N/A [facility] Nucleated erythrocytes [Pres ence] in Blood by Automated countOrdered By: Kassandra Klein on 11-28-2022 Nucleated RBC Auto Ql (Bld) 0.2 /100{WBC} 0-0.5 [facility] Platelet mean volume Auto (B ld) [Entitic vol]Ordered By: Kassandra Klein on 11-28-2022 Platelet mean volume (Bld) [Entitic vol] 10.3 fL 6.3-10.7 [facility] Platelets Auto (Bld) [#/Vol] Ordered By: Kassandra Klein on 11-28-2022 Platelets (Bld) [#/Vol] 259 10*3/uL 150-450 [facility] Potassium [Moles/volume] in Serum or PlasmaOrdered By: Kassandra Klein on 11-28-2022 Potassium [Moles/Vol] 3.8 mmol/L 3.5-5.1 [facility] Protein [Mass/volume] in Ser um or PlasmaOrdered By: Kassandra Klein on 11-28-2022 Protein [Mass/Vol] 7.6 g/dL 6.4-8.9 [facility] RBC Auto (Bld) [#/Vol]Ordere d By: Kassandra Klein on 11-28-2022 RBC (Bld) [#/Vol] 4.39 10*6/uL 3.60-5.00 [facility] Serum or plasma albumin/glob ulin mass ratioOrdered By: Kassandra Klein on 11-28-2022 Albumin/Globulin [Mass ratio] 1.4 {ratio} [facility] Serum or plasma anion gap de terminationOrdered By: Kassandra Klein on 11-28-2022 Anion gap [Moles/Vol] 14.1 mmol/L 6.0-15.0 [facility] Serum or plasma high density lipoprotein (HDL) cholesterol measurementOrdered By: Kassandra Klein on 11-28-2022 Cholesterol in HDL [Mass/Vol] 50 mg/dL 35-85 [facility] Comment on above: HDL CHOL ATP-III CLA SSIFICATION Cardiovascular RiskHDL > or equal to 60 mg/dL LOWHDL < 40 mg/dL HIGH Serum or plasma total choles terol/high density lipoprotein (HDL) cholesterol mass ratOrdered By: Kassandra Klein on 11-28-2022 Cholesterol.total/Alba sterol in HDL [Mass ratio] 2.8 {ratio} <5.0 [facility] Sodium [Moles/volume] in Ser um or PlasmaOrdered By: Kassandra Klein on 11-28-2022 Sodium [Moles/Vol] 139 mmol/L 136-145 [facility] Thyrotropin [Units/volume] i n Serum or PlasmaOrdered By: Kassandra Klein on 11-28-2022 TSH Qn 0.86 m[IU]/L 0.45-5.33 [facility] Transferrin [Mass/volume] in Serum or PlasmaOrdered By: Kassandra Klein on 11-28-2022 Transferrin [Mass/Vol] 327 mg/dL 203-362 [facility] Triglyceride [Mass/volume] i n Serum or PlasmaOrdered By: Kassandra Klein on 11-28-2022 Triglyceride [Mass/Vol] 89 mg/dL 0-149 [facility] Comment on above: TRIG ATP III CLASSIF ICATIONTRIG less than 150 mg/dL NormalTRIG 150-199 mg/dL Borderline highTRIG 200-500 mg/dL High TRIG greater than 500 mg/dL Very highStandard traceable to the Center for Disease Conrtrol and Prevention (CDC) test method. Urea nitrogen [Mass/volume] in Serum or PlasmaOrdered By: Kassandra Klein on 11-28-2022 Urea nitrogen [Mass/Vol] 13 mg/dL 7-25 [facility] Vitamin D+Metabolites [Mass/ volume] in Serum or PlasmaOrdered By: Kassandra Klein on 11-28-2022 Vitamin D+Metabolites [Mass/Vol] 43.0 ng/mL 30-100 [facility] Comment on above: VITAMIN D STATUS 25( OH)VITAMIN D RANGE (ng/mL) Deficient <20 Insufficient 20 to <30Sufficient 30 to 100Reference: Noemí LEÓN,Reese BERNAL, Zaria LI, et al. Evaluation,treatment, and prevention of vitamin D deficiency; an Endocrine Society clinical practice guideline. JCEM. 2010; 96(7):1911-30. WBC Auto (Bld) [#/Vol]Ordere d By: Kassandra Klein on 11-28-2022 WBC (Bld) [#/Vol] 10.9 10*3/uL 3.8-11.6 [facility] Glucose Glucometer (BldC) [M ass/Vol]Ordered By: Huey Bliss on 11-14-2022 Glucose [Mass/Vol] 138 mg/dL [facility] Comment on above: Random Glucose Refer ence Range is dependent on time and content of last meal. Glucose of more than 200 mg/dL in a nonstressed, ambulatory subject supports the diagnosis of Diabetes Mellitus. HPV 16+18+31+33+35+39+45+51+ 52+56+58+59+68 DNA cervix probe + signal amplificOrdered By: Kassandra Klein on 09-12-2022 HPV 16+18+31+33+35+39+45+51 +52+56+58+59+68 DNA Probe+sig amp Ql (Cvx) Positive Negative [facility] Comment on above: This nucleic acid am plification test detects fourteen high-risk HPV types (16,18,31,33,35,39,45,51,52,56,58,59,66,68)without differentiation. Laboratory - Microbiology an d Antimicrobial susceptibilityOrdered By: Kassandra Klein on 09-12-2022 N. gonorrhoeae DNA GINETTE+probe Ql (Unsp spec) Negative Negative [facility] Comment on above: Performed at: =[address] [id number] Director: Danyell Capone MD, Phone: [phone] No Panel InformationOrdered By: Kassandra Klein on 09-12-2022 Laine albicans (GINETTE) Negative Negative [facility] Comment on above: This test was develo ped and its performance characteristicsdetermined by [facility]. It has not been cleared orapproved by the Food and Drug Administration. Laine glabrata (GINETTE) Negative Negative [facility] Comment on above: This test was abhijeeto ped and its performance characteristicsdetermined by [facility]. It has not been cleared orapproved by the Food and Drug Administration. Chlamydia trachomatis (GINETTE) (LAB) Negative Negative [facility] IG Pap w/Ct-Ng Age Based (Off-Site) Note . [facility] Comment on above: TESTS RESULT FLAG UN ITS REF RANGE LAB - Clinician Provided Cytology Information No. of containers..01 ThinPrep VialAge Freedom SANTIZO Stacie... FLAG LEGEND: L-Low Normal,H-High Normal,LL-Alert Low,HH-Alert High <-Panic Low,>-Panic High,A-Abnormal,AA-Critical Abnormal ------Performed at:01 =[facility] [address] [place] [address] Danyell Capone MD, Thin Prep Pap Comment Note . [facility] Comment on above: TESTS RESULT FLAG UN ITS REF RANGE LAB -DIAGNOSIS: [A] 02 EPITHELIAL CELL ABNORMALITY. LOW GRADE SQUAMOUS INTRAEPITHELIAL LESION (LSIL).Recommendation: [A] 02 Suggest follow up as clinically appropriate.Specimen adequacy: 02 Satisfactory for evaluation. Endocervical and/or squamous metaplastic cells (endocervical component) are present.Performed by: 02 Kiki Piedra, Billet Driller (ASCP)Electronically si... Jazmin Bishop MD, Pathologist. 02Pathologist ICD10: 02 [...] High <-Panic Low,>-Panic High,A-Abnormal,AA-Critical Abnormal ------Performed at:[address] [address] Danyell Capone MD, Trichomonas vaginalis (GINETTE) Negative Negative [facility] Vaginal fluid Atopobium vagi raza DNA detection by probe and target amplification methoOrdered By: Kassandra Klein on 09-12-2022 A. vaginae DNA GINETTE+probe Ql (Vag fld) High - 2 Score . [facility] Vaginal fluid Megasphaera sp ecies type 1 DNA detection by probe and target amplificatOrdered By: Kassandra Klein on 09-12-2022 Megasphaera sp type 1 DNA GINETTE+probe Ql (Vag fld) High - 2 Score . [facility] Comment on above: Calculate total scor e by adding the 3 individual bacterialvaginosis (BV) marker scores together. Total score isinterpreted as follows:Total score 0-1: Indicates the absence of BV.Total score 2: Indeterminate for BV. Additional clinical data should be evaluated to establish a diagnosis.Total score 3-6: Indicates the presence of BV.This test was developed and its performance characteristicsdetermined by [facility]. It has not been cleared or approvedby the Food and Drug Administration. Vaginal fluid bacterial vagi nosis associated bacterium 2 DNA detection by probe and tOrdered By: Kassandra Klein on 09-12-2022 Bacterial vaginosis associated bacterium 2 DNA GINETTE+probe Ql (Vag fld) High - 2 Score . [facility] COVID-19 Detected/Not Detect edOrdered By: Kassandra Klein on 08-13-2022 SARS-CoV-2 (COVID-19) RNA GINETTE+non-probe Ql (Nph) Not detected Not Detecte [facility] Comment on above: This is a duplicate RP2.1 COVID (PCR) result to be used for statistical tracking purpose only. Respiratory pathogens DNA an d RNA panel - Nasopharynx by GINETTE with non-probe detectionOrdered By: Kassandra Klein on 08-13-2022 Respiratory pathogens DNA and RNA panel GINETTE+non-probe (Nph) [facility] Respiratory pathogens DNA and RNA panel GINETTE+non-probe (Nph) [facility] Albumin [Mass/volume] in Ser um or PlasmaOrdered By: Kassandra Klein on 08-07-2022 Albumin [Mass/Vol] 3.9 g/dL 3.2-5.5 [facility] Basophils Auto (Bld) [#/Vol] Ordered By: Kassandra Klein on 08-07-2022 Basophils (Bld) [#/Vol] 0.1 10*3/uL 0.0-0.2 [facility] Basophils/100 WBC Auto (Bld) Ordered By: Kassandra Klein on 08-07-2022 Basophils/100 WBC (Bld) 0.6 % . [facility] Cholesterol [Mass/volume] in Serum or PlasmaOrdered By: Kassandra Klein on 08-07-2022 Cholesterol [Mass/Vol] 173 mg/dL 140-200 [facility] Comment on above: Chol less than 200 m g/dl low riskChol 201-239 mg/dl borderline riskChol 240 mg/dl and greater high risk Cholesterol in LDL Calc [Mas s/Vol]Ordered By: Kassandra Klein on 08-07-2022 Cholesterol in LDL [Mass/Vol] 88 mg/dL 0-100 [facility] Comment on above: LDL ATP III CLASSIFI CATIONLDL less than 100 mg/dL OptimalLDL 100-129 mg/dL Near or above optimalLDL 130-159 mg/dL Borderline highLDL 160-189 mg/dL HighLDL greater than 189 mg/dL Very high Cholesterol in VLDL Calc [Ma ss/Vol]Ordered By: Kassandra Klein on 08-07-2022 Cholesterol in VLDL [Mass/Vol] 26 mg/dL [facility] Creatinine and Glomerular fi ltration rate.predicted panel (S/P/Bld)Ordered By: Kassandra Klein on 08-07-2022 Creatinine [Mass/Vol] 0.92 mg/dL 0.44-1.03 [facility] Eosinophils Auto (Bld) [#/Vo l]Ordered By: Kassandra Klein on 08-07-2022 Eosinophils (Bld) [#/Vol] 0.0 10*3/uL 0.0-0.45 [facility] Eosinophils/100 WBC Auto (Bl d)Ordered By: Kassandra Klein on 08-07-2022 Eosinophils/100 WBC (Bld) 0.3 % . [facility] Erythrocyte distribution wid th Auto (RBC) [Ratio]Ordered By: Kassandra Klein on 08-07-2022 Erythrocyte distribution width (RBC) [Ratio] 17.5 % 11.9-15.3 [facility] Estimated glomerular filtrat ion rate (GFR) non- AmericanOrdered By: Kassandra Klein on 08-07-2022 GFR/1.73 sq M.predicted among non-blacks MDRD (S/P/Bld) [Vol rate/Area] > 60 mL/Min [facility] Globulin Calc (S) [Mass/Vol] Ordered By: Kassandra Klein on 08-07-2022 Globulin (S) [Mass/Vol] 3.3 g/dL [facility] Glucose mean value [Mass/vol ume] in Blood Estimated from glycated hemoglobinOrdered By: Kassandra Klein on 08-07-2022 Average glucose Estimated from glycated hemoglobin (Bld) [Mass/Vol] 128 mg/dL [facility] Hematocrit Auto (Bld) [Volum e fraction]Ordered By: Kassandra Klein on 08-07-2022 Hematocrit (Bld) [Volume fraction] 39.8 % 34.0-46.4 [facility] Hemoglobin A1c percentageOrd ered By: Kassandra Klein on 08-07-2022 HbA1c (Bld) [Mass fraction] 6.1 % 4.3-5.6 [facility] Comment on above: Increased risk for d iabetes: 5.7 - 6.4diabetes: >6.4glycemic control for adults with diabetes: <7.0 Hemoglobin [Mass/volume] in BloodOrdered By: Kassandra Klein on 08-07-2022 Hemoglobin (Bld) [Mass/Vol] 12.6 g/dL 11.8-15.4 [facility] Leukocytes [#/volume] correc alyse for nucleated erythrocytes in Blood by Automated counOrdered By: Kassandra Klein on 08-07-2022 WBC corrected for nucl RBC Auto (Bld) [#/Vol] 14.7 10*3/uL 3.8-11.6 [facility] Lymphocytes Auto (Bld) [#/Vo l]Ordered By: Kassandra Klein on 08-07-2022 Lymphocytes (Bld) [#/Vol] 2.0 10*3/uL 1.00-4.8 [facility] Lymphocytes/100 WBC Auto (Bl d)Ordered By: Kassandra Klein on 08-07-2022 Lymphocytes/100 WBC (Bld) 13.4 % . [facility] MCH Auto (RBC) [Entitic mass ]Ordered By: Kassandra Klein on 08-07-2022 MCH (RBC) [Entitic mass] 29.8 pg 24.7-34.3 [facility] MCHC Auto (RBC) [Mass/Vol]Or dered By: Kassandra Klein on 08-07-2022 MCHC (RBC) [Mass/Vol] 31.7 g/dL 32.0-35.0 [facility] MCV Auto (RBC) [Entitic vol] Ordered By: Kassandra Klein on 08-07-2022 MCV (RBC) [Entitic vol] 94.1 fL 80-100 [facility] Monocytes Auto (Bld) [#/Vol] Ordered By: Kassandra Klein on 08-07-2022 Monocytes (Bld) [#/Vol] 0.6 10*3/uL 0.0-0.8 [facility] Monocytes/100 WBC Auto (Bld) Ordered By: Kassandra Klein on 08-07-2022 Monocytes/100 WBC (Bld) 4.4 % . [facility] Neutrophils Auto (Bld) [#/Vo l]Ordered By: Kassandra Klein on 08-07-2022 Neutrophils (Bld) [#/Vol] 11.9 10*3/uL 1.8-7.7 [facility] Neutrophils/100 WBC Auto (Bl d)Ordered By: Kassandra Klein on 08-07-2022 Neutrophils/100 WBC (Bld) 81.3 % . [facility] No Panel InformationOrdered By: Kassandra Klein on 08-07-2022 Estimated GFR () > 60 mL/Min [facility] Comment on above: GFR estimated refere nce range: According to KDOQI guidelines, <60 ml/min/1.73m2 is sufficient to diagnose a patient with chronic kidney disease. Pharmacy Creatinine Clearance (Chem N/A [facility] Nucleated erythrocytes [Pres ence] in Blood by Automated countOrdered By: Kassandra Klein on 08-07-2022 Nucleated RBC Auto Ql (Bld) 0.0 /100{WBC} 0-0.5 [facility] Platelet mean volume Auto (B ld) [Entitic vol]Ordered By: Kassandra Klein on 08-07-2022 Platelet mean volume (Bld) [Entitic vol] 9.5 fL 6.3-10.7 [facility] Platelets Auto (Bld) [#/Vol] Ordered By: Kassandra Klein on 08-07-2022 Platelets (Bld) [#/Vol] 260 10*3/uL 150-450 [facility] Protein [Mass/volume] in Ser um or PlasmaOrdered By: Kassandra lKein on 08-07-2022 Protein [Mass/Vol] 7.2 g/dL 6.1-7.9 [facility] RBC Auto (Bld) [#/Vol]Ordere d By: Kassandra Klein on 08-07-2022 RBC (Bld) [#/Vol] 4.23 10*6/uL 3.60-5.00 [facility] Serum or plasma alanine chou otransferase measurement without P-5'-P (enzymatic activiOrdered By: Kassandra Klein on 08-07-2022 ALT No additional P-5'-P [Catalytic activity/Vol] 26 U/L 10-60 [facility] Serum or plasma albumin/glob ulin mass ratioOrdered By: Kassandra Klein on 08-07-2022 Albumin/Globulin [Mass ratio] 1.2 {ratio} [facility] Serum or plasma alkaline patricia sphatase measurement (enzymatic activity/volume)Ordered By: Kassandra Klein on 08-07-2022 ALP [Catalytic activity/Vol] 73 U/L 32-92 [facility] Serum or plasma anion gap de terminationOrdered By: Kassandra Klein on 08-07-2022 Anion gap [Moles/Vol] 12.7 mmol/L 6.0-15.0 [facility] Serum or plasma aspartate am inotransferase measurement (enzymatic activity/volume)Ordered By: Kassandra Klein on 08-07-2022 AST [Catalytic activity/Vol] 19 U/L 10-42 [facility] Serum or plasma calcium dee urement (mass/volume)Ordered By: Kassandra Klein on 08-07-2022 Calcium [Mass/Vol] 9.2 mg/dL 8.2-10.2 [facility] Serum or plasma chloride kelsey surement (moles/volume)Ordered By: Kassandra Klein on 08-07-2022 Chloride [Moles/Vol] 107 mmol/L 95-114 [facility] Serum or plasma glucose dee urement (mass/volume)Ordered By: Kassandra Klein on 08-07-2022 Glucose [Mass/Vol] 128 mg/dL 70-100 [facility] Comment on above: ADA recommended refe rence rangeRandom Glucose Reference Range is dependent on time and content of last meal. Glucose of more than 200 mg/dL in a nonstressed, ambulatory subject supports the diagnosis of Diabetes Mellitus. Serum or plasma high density lipoprotein (HDL) cholesterol measurementOrdered By: Kassandra Klein on 08-07-2022 Cholesterol in HDL [Mass/Vol] 59 mg/dL 35-85 [facility] Comment on above: HDL CHOL ATP-III CLA SSIFICATION Cardiovascular RiskHDL > or equal to 60 mg/dL LOWHDL < 40 mg/dL HIGH Serum or plasma potassium me asurement (moles/volume)Ordered By: Kassandra Klein on 08-07-2022 Potassium [Moles/Vol] 5.0 mmol/L 3.5-5.1 [facility] [facility] Serum or plasma sodium measu rement (moles/volume)Ordered By: Kassandra Klein on 08-07-2022 Sodium [Moles/Vol] 137 mmol/L 136-146 [facility] Serum or plasma total biliru bin measurement (mass/volume)Ordered By: Kassandra Klein on 08-07-2022 Bilirubin [Mass/Vol] 0.4 mg/dL 0.3-1.2 [facility] Serum or plasma total carbon dioxide measurement (moles/volume)Ordered By: Kassandra Klein on 08-07-2022 CO2 [Moles/Vol] 22.3 mmol/L 22.0-30.0 [facility] Serum or plasma total choles terol/high density lipoprotein (HDL) cholesterol mass ratOrdered By: Kassandra Klein on 08-07-2022 Cholesterol.total/Alba sterol in HDL [Mass ratio] 2.9 {ratio} <5.0 [facility] Serum or plasma urea nitroge n measurement (mass/volume)Ordered By: Kassandra Klein on 08-07-2022 Urea nitrogen [Mass/Vol] 14 mg/dL 9-23 [facility] TSH DL <= 0.005 mIU/L QnOrde red By: Kassandra Klein on 08-07-2022 TSH Qn 0.81 m[IU]/L 0.45-5.33 [facility] Triglyceride [Mass/volume] i n Serum or PlasmaOrdered By: Kassandra Klein on 08-07-2022 Triglyceride [Mass/Vol] 132 mg/dL 35-149 [facility] Comment on above: TRIG ATP III CLASSIF ICATIONTRIG less than 150 mg/dL NormalTRIG 150-199 mg/dL Borderline highTRIG 200-500 mg/dL High TRIG greater than 500 mg/dL Very highStandard traceable to the Center for Disease Conrtrol and Prevention (CDC) test method. WBC Auto (Bld) [#/Vol]Ordere d By: Kassandra Klein on 08-07-2022 WBC (Bld) [#/Vol] 14.7 10*3/uL 3.8-11.6 [facility] CCP ANTIBODY IGGon Cyclic citrullinated peptide IgG Qn <20 Units [facility] Cyclic citrullinated peptide IgG Qnon 07-22-2022 CCP Antibody IgG Qualitative Negative Negative [facility] BLOOD TB SCREENon 07-21-2022 M. tuberculosis tuberculin stim IFN-g Ql (Bld) Positive [facility] Mitogen minus Nil >=0.50 IU/mL [facility] TB Gamma Interpretation The result sugge sts an infection with either M. tuberculosis complex and/or any of M. kansasii, M. szulgai, M. marinum, and M. flavescens; however, active and latent infections cannot be distinguished by this test. A positive result may not be reliable if obtained within several months of a Tuberculin Skin Test. Clinical and epidemiological correlation is required. [facility] TB Nil 0.27 IU/mL <=8.00 IU/mL [facility] Ag minus Nil High <0.35 IU/mL [facility] TB2 Ag minus Nil High <0.35 IU/mL [facility] C-REACTIVE PROTEIN (CRP)on 0 07-20-2022 CRP [Mass/Vol] 0.6 mg/dL <0.9 mg/dL [facility] Comprehensive metabolic 2000 panelon 07-20-2022 Albumin [Mass/Vol] 4.6 g/dL 3.9 - 4.9 g/dL [facility] ALP [Catalytic activity/Vol] 84 U/L 34 - 123 U/L [facility] ALT [Catalytic activity/Vol] 23 U/L 7 - 38 U/L [facility] Anion gap [Moles/Vol] 13 mmol/L 9 - 18 mmol/L [facility] AST [Catalytic activity/Vol] 22 U/L 13 - 35 U/L [facility] Bilirubin [Mass/Vol] 0.4 mg/dL 0.2 - 1 .3 mg/dL [facility] Calcium [Mass/Vol] 10.0 mg/dL 8.5 - 10. 2 mg/dL [facility] Chloride [Moles/Vol] 107 mmol/L High 97 - 10 5 mmol/L [facility] CO2 [Moles/Vol] 19 mmol/L Low 22 - 30 mmol/L [facility] Creatinine [Mass/Vol] 0.87 mg/dL 0.58 - 0.96 mg/dL [facility] Estimated Glomerular Filtration Rate 78 mL/min/1.73m >=60 mL/min/1.7 3m [facility] Glucose [Mass/Vol] 76 mg/dL 74 - 99 mg/dL [facility] Potassium [Moles/Vol] 4.4 mmol/L 3.7 - 5.1 mmol/L [facility] Protein [Mass/Vol] 7.6 g/dL 6.3 - 8.0 g/dL [facility] Sodium [Moles/Vol] 139 mmol/L 136 - 144 mmol/L [facility] Urea nitrogen [Mass/Vol] 14 mg/dL 7 - 21 mg/dL [facility] RHEUMATOID FACTOR BLon 07-20 Rheumatoid factor Qn <16 IU/mL [facility] CBC W Auto Differential pane l (Bld)on 07-19-2022 Basophils (Bld) [#/Vol] 0.07 10*3/uL <0.11 k/uL [facility] Basophils/100 WBC (Bld) 0.7 % [facility] Differential cell count method Nom (Bld) Auto [facility] Eosinophils (Bld) [#/Vol] 0.25 10*3/uL <0.46 k/uL [facility] Eosinophils/100 WBC (Bld) 2.5 % [facility] Erythrocyte distribution width (RBC) [Ratio] 16.8 % High 11.5 - 15.0 % [facility] Hematocrit (Bld) [Volume fraction] 41.0 % 36.0 - 46.0 % [facility] Hemoglobin (Bld) [Mass/Vol] 13.6 g/dL 11.5 - 15.5 g/dL [facility] Immature granulocytes (Bld) [#/Vol] 0.04 10*3/uL <0.10 k/uL [facility] Immature granulocytes/100 WBC (Bld) 0.4 % [facility] Lymphocytes (Bld) [#/Vol] 3.45 10*3/uL 1.00 - 4.00 k/uL [facility] Lymphocytes/100 WBC (Bld) 34.0 % [facility] MCH (RBC) [Entitic mass] 30.8 pg 26.0 - 34.0 pg [facility] MCHC (RBC) [Mass/Vol] 33.2 g/dL 30.5 - 36.0 g/dL [facility] MCV (RBC) [Entitic vol] 93.0 fL 80.0 - 100.0 fL [facility] Monocytes (Bld) [#/Vol] 0.66 10*3/uL <0.87 k/uL [facility] Monocytes/100 WBC (Bld) 6.5 % [facility] Neutrophils (Bld) [#/Vol] 5.67 10*3/uL 1.45 - 7.50 k/uL [facility] Neutrophils/100 WBC (Bld) 55.9 % [facility] Nucleated RBC (Bld) [#/Vol] <0.01 k/uL [facility] Nucleated RBC/100 WBC (Bld) [Ratio] 0.0 /100 WBC [facility] Platelet mean volume (Bld) [Entitic vol] 12.0 fL 9.0 - 12.7 fL [facility] Platelets (Bld) [#/Vol] 301 10*3/uL 150 - 400 k/uL [facility] RBC (Bld) [#/Vol] 4.41 10*6/uL 3.90 - 5.20 m/uL [facility] WBC (Bld) [#/Vol] 10.14 10*3/uL 3.70 - 11.00 k/uL [facility] ESR Westergren method (Bld) [Velocity]on 07-19-2022 ESR (Bld) [Velocity] 10 mm/h 0 - 20 mm/hr [facility] No Panel Informationon 07-19 [facility] Albumin [Mass/volume] in Ser um or PlasmaOrdered By: Kassandra Klein on 07-16-2022 Albumin [Mass/Vol] 4.2 g/dL 3.2-5.5 [facility] Basophils Auto (Bld) [#/Vol] Ordered By: Kassandra Klein on 07-16-2022 Basophils (Bld) [#/Vol] 0.0 10*3/uL 0.0-0.2 [facility] Basophils/100 WBC Auto (Bld) Ordered By: Kassandra Klein on 07-16-2022 Basophils/100 WBC (Bld) 0.4 % . [facility] C reactive protein [Mass/vol ume] in Serum or PlasmaOrdered By: Kassandra Klein on 07-16-2022 CRP [Mass/Vol] 0.6 mg/dL 0.0-1.[address] [facility] [address] biopsyOrdered By: Kassandra vance on 07-16-2022 Transferrin [Mass/Vol] 307 mg/dL 180-380 [facility] Cholesterol [Mass/volume] in Serum or PlasmaOrdered By: Kassandra Klein on 07-16-2022 Cholesterol [Mass/Vol] 178 mg/dL 140-200 [facility] Comment on above: Chol less than 200 m g/dl low riskChol 201-239 mg/dl borderline riskChol 240 mg/dl and greater high risk Cholesterol in LDL Calc [Mas s/Vol]Ordered By: Kassandra Klein on 07-16-2022 Cholesterol in LDL [Mass/Vol] 110 mg/dL 0-100 [facility] Comment on above: LDL ATP III CLASSIFI CATIONLDL less than 100 mg/dL OptimalLDL 100-129 mg/dL Near or above optimalLDL 130-159 mg/dL Borderline highLDL 160-189 mg/dL HighLDL greater than 189 mg/dL Very high Cholesterol in VLDL Calc [Ma ss/Vol]Ordered By: Kassandra Klein on 07-16-2022 Cholesterol in VLDL [Mass/Vol] 22 mg/dL [facility] Creatinine and Glomerular fi ltration rate.predicted panel (S/P/Bld)Ordered By: Kassandra Klein on 07-16-2022 Creatinine [Mass/Vol] 0.71 mg/dL 0.44-1.03 [facility] Eosinophils Auto (Bld) [#/Vo l]Ordered By: Kassandra Klein on 07-16-2022 Eosinophils (Bld) [#/Vol] 0.3 10*3/uL 0.0-0.45 [facility] Eosinophils/100 WBC Auto (Bl d)Ordered By: Kassandra Klein on 07-16-2022 Eosinophils/100 WBC (Bld) 3.1 % . [facility] Erythrocyte distribution wid th Auto (RBC) [Ratio]Ordered By: Kassandra Klein on 07-16-2022 Erythrocyte distribution width (RBC) [Ratio] 16.5 % 11.9-15.3 [facility] Erythrocyte sedimentation ra te by Photometric methodOrdered By: Kassandra Klein on 07-16-2022 ESR Photometric method (Bld) [Velocity] 27 mm/hr 0-29 [facility] Estimated glomerular filtrat ion rate (GFR) non- AmericanOrdered By: Kassandra Klein on 07-16-2022 GFR/1.73 sq M.predicted among non-blacks MDRD (S/P/Bld) [Vol rate/Area] > 60 mL/Min [facility] Globulin Calc (S) [Mass/Vol] Ordered By: Kassandra Klein on 07-16-2022 Globulin (S) [Mass/Vol] 3.1 g/dL [facility] Hematocrit Auto (Bld) [Volum e fraction]Ordered By: Kassnadra Klein on 07-16-2022 Hematocrit (Bld) [Volume fraction] 39.2 % 34.0-46.4 [facility] Hemoglobin [Mass/volume] in BloodOrdered By: Kassandra Klein on 07-16-2022 Hemoglobin (Bld) [Mass/Vol] 12.6 g/dL 11.8-15.4 [facility] Iron [Mass/volume] in Serum or PlasmaOrdered By: Kassandra Klein on 07-16-2022 Iron [Mass/Vol] 74 ug/dL 40-150 [facility] Iron binding capacity [Mass/ volume] in Serum or PlasmaOrdered By: Kassandra Klein on 07-16-2022 Iron binding capacity [Mass/Vol] 430 ug/dL 255-450 [facility] Iron saturation [Mass Fracti on] in Serum or PlasmaOrdered By: Kassandra Klein on 07-16-2022 Iron saturation [Mass fraction] 17.2 % 20-50 [facility] Leukocytes [#/volume] correc alyse for nucleated erythrocytes in Blood by Automated counOrdered By: Kassandra Klein on 07-16-2022 WBC corrected for nucl RBC Auto (Bld) [#/Vol] 8.6 10*3/uL 3.8-11.6 [facility] Lymphocytes Auto (Bld) [#/Vo l]Ordered By: Kassandra Klein on 07-16-2022 Lymphocytes (Bld) [#/Vol] 2.6 10*3/uL 1.00-4.8 [facility] Lymphocytes/100 WBC Auto (Bl d)Ordered By: Kassandra Klein on 07-16-2022 Lymphocytes/100 WBC (Bld) 30.2 % . [facility] MCH Auto (RBC) [Entitic mass ]Ordered By: Kassandra Klein on 07-16-2022 MCH (RBC) [Entitic mass] 29.6 pg 24.7-34.3 [facility] MCHC Auto (RBC) [Mass/Vol]Or dered By: Kassandra Klein on 07-16-2022 MCHC (RBC) [Mass/Vol] 32.1 g/dL 32.0-35.0 [facility] MCV Auto (RBC) [Entitic vol] Ordered By: Kassandra Klein on 07-16-2022 MCV (RBC) [Entitic vol] 92.2 fL 80-100 [facility] Monocytes Auto (Bld) [#/Vol] Ordered By: Kassandra Klein on 07-16-2022 Monocytes (Bld) [#/Vol] 0.7 10*3/uL 0.0-0.8 [facility] Monocytes/100 WBC Auto (Bld) Ordered By: Kassandra Klein on 07-16-2022 Monocytes/100 WBC (Bld) 7.8 % . [facility] Neutrophils Auto (Bld) [#/Vo l]Ordered By: Kassandra Klein on 07-16-2022 Neutrophils (Bld) [#/Vol] 5.1 10*3/uL 1.8-7.7 [facility] Neutrophils/100 WBC Auto (Bl d)Ordered By: Kassandra Klein on 07-16-2022 Neutrophils/100 WBC (Bld) 58.5 % . [facility] No Panel InformationOrdered By: Kassandra Klein on 07-16-2022 25-Hydroxy Vitamin D Total 18.8 ng/mL 30-100 [facility] Comment on above: VITAMIN D STATUS 25( [place])VITAMIN D RANGE (ng/mL) Deficient <20 Insufficient 20 to <30Sufficient 30 to 100Reference: Noemí MF,Reese NC, Zaria LI, et al. Evaluation,treatment, and prevention of vitamin D deficiency; an Endocrine Society clinical practice guideline. JCEM. 2010; 96(7):1911-30. Estimated GFR () > 60 mL/Min [facility] Comment on above: GFR estimated refere nce range: According to KDOQI guidelines, <60 ml/min/1.73m2 is sufficient to diagnose a patient with chronic kidney disease. Pharmacy Creatinine Clearance (Chem N/A [facility] Nucleated erythrocytes [Pres ence] in Blood by Automated countOrdered By: Kassandra Klein on 07-16-2022 Nucleated RBC Auto Ql (Bld) 0.0 /100{WBC} 0-0.5 [facility] Platelet mean volume Auto (B ld) [Entitic vol]Ordered By: Kassandra Klein on 07-16-2022 Platelet mean volume (Bld) [Entitic vol] 10.3 fL 6.3-10.7 [facility] Platelets Auto (Bld) [#/Vol] Ordered By: Kassnadra Klein on 07-16-2022 Platelets (Bld) [#/Vol] 302 10*3/uL 150-450 [facility] Protein [Mass/volume] in Ser um or PlasmaOrdered By: Kassandra Klein on 07-16-2022 Protein [Mass/Vol] 7.3 g/dL 6.1-7.9 [facility] RBC Auto (Bld) [#/Vol]Ordere d By: Kassandra Klein on 07-16-2022 RBC (Bld) [#/Vol] 4.25 10*6/uL 3.60-5.00 [facility] Serum or plasma alanine chou otransferase measurement without P-5'-P (enzymatic activiOrdered By: Kassandra Klein on 07-16-2022 ALT No additional P-5'-P [Catalytic activity/Vol] 24 U/L 10-60 [facility] Serum or plasma albumin/glob ulin mass ratioOrdered By: Kassandra Klein on 07-16-2022 Albumin/Globulin [Mass ratio] 1.4 {ratio} [facility] Serum or plasma alkaline patricia sphatase measurement (enzymatic activity/volume)Ordered By: Kassandra Klein on 07-16-2022 ALP [Catalytic activity/Vol] 69 U/L 32-92 [facility] Serum or plasma anion gap de terminationOrdered By: Kassandra Klein on 07-16-2022 Anion gap [Moles/Vol] 14.5 mmol/L 6.0-15.0 [facility] Serum or plasma aspartate am inotransferase measurement (enzymatic activity/volume)Ordered By: Kassandra Klein on 07-16-2022 AST [Catalytic activity/Vol] 25 U/L 10-42 [facility] Serum or plasma calcium dee urement (mass/volume)Ordered By: Kassandra Klein on 07-16-2022 Calcium [Mass/Vol] 9.5 mg/dL 8.2-10.2 [facility] Serum or plasma chloride kelsey surement (moles/volume)Ordered By: Kassandra Klein on 07-16-2022 Chloride [Moles/Vol] 109 mmol/L 95-114 [facility] Serum or plasma glucose dee urement (mass/volume)Ordered By: Kassandra Klein on 07-16-2022 Glucose [Mass/Vol] 96 mg/dL 70-100 [facility] Comment on above: ADA recommended refe rence rangeRandom Glucose Reference Range is dependent on time and content of last meal. Glucose of more than 200 mg/dL in a nonstressed, ambulatory subject supports the diagnosis of Diabetes Mellitus. Serum or plasma high density lipoprotein (HDL) cholesterol measurementOrdered By: Kassandra Klein on 07-16-2022 Cholesterol in HDL [Mass/Vol] 46 mg/dL 35-85 [facility] Comment on above: HDL CHOL ATP-III CLA SSIFICATION Cardiovascular RiskHDL > or equal to 60 mg/dL LOWHDL < 40 mg/dL HIGH Serum or plasma potassium me asurement (moles/volume)Ordered By: Kassandra Klein on 07-16-2022 Potassium [Moles/Vol] 4.4 mmol/L 3.5-5.1 [facility] Serum or plasma rheumatoid f actor measurement (units/volume)Ordered By: Kassandra Klein on 07-16-2022 Rheumatoid factor Qn [IU]/mL <14.0 [facility] Comment on above: Performed at: [facility] [place] [address] [id number] Director: Malachi Ernandez PhD, Phone: [phone] Serum or plasma sodium measu rement (moles/volume)Ordered By: Kassandra Klein on 07-16-2022 Sodium [Moles/Vol] 137 mmol/L 136-146 [facility] Serum or plasma total biliru bin measurement (mass/volume)Ordered By: Kassandra Klein on 07-16-2022 Bilirubin [Mass/Vol] 0.4 mg/dL 0.3-1.2 [facility] Serum or plasma total carbon dioxide measurement (moles/volume)Ordered By: Kassandra Klein on 07-16-2022 CO2 [Moles/Vol] 17.9 mmol/L 22.0-30.0 [facility] Serum or plasma total choles terol/high density lipoprotein (HDL) cholesterol mass ratOrdered By: Kassandra Klein on 07-16-2022 Cholesterol.total/Alba sterol in HDL [Mass ratio] 3.9 {ratio} <5.0 [facility] Serum or plasma urea nitroge n measurement (mass/volume)Ordered By: Kassandra Klein on 07-16-2022 Urea nitrogen [Mass/Vol] 10 mg/dL 9-23 [facility] Serum or plasma uric acid me asurement (mass/volume)Ordered By: aKssandra Klein on 07-16-2022 Urate [Mass/Vol] 5.6 mg/dL 2.6-7.2 [facility] TSH DL <= 0.005 mIU/L QnOrde red By: Kassandra Klein on 07-16-2022 TSH Qn 0.69 m[IU]/L 0.45-5.33 [facility] Triglyceride [Mass/volume] i n Serum or PlasmaOrdered By: Kassandra Klein on 07-16-2022 Triglyceride [Mass/Vol] 110 mg/dL 35-149 [facility] Comment on above: TRIG ATP III CLASSIF ICATIONTRIG less than 150 mg/dL NormalTRIG 150-199 mg/dL Borderline highTRIG 200-500 mg/dL High TRIG greater than 500 mg/dL Very highStandard traceable to the Center for Disease Conrtrol and Prevention (CDC) test method. WBC Auto (Bld) [#/Vol]Ordere d By: Kassandra Klein on 07-16-2022 WBC (Bld) [#/Vol] 8.6 10*3/uL 3.8-11.6 [facility] Albumin [Mass/volume] in Ser um or PlasmaOrdered By: Dwight Irwin on 12-22-2021 Albumin [Mass/Vol] 3.4 g/dL 3.2-5.5 [facility] Basophils Auto (Bld) [#/Vol] Ordered By: Dwight Irwin on 12-22-2021 Basophils (Bld) [#/Vol] 0.0 10*3/uL 0.0-0.2 [facility] Basophils/100 WBC Auto (Bld) Ordered By: Dwight Irwin on 12-22-2021 Basophils/100 WBC (Bld) 0.3 % . [facility] Blood hemoglobin measurement (mass/volume)Ordered By: Dwight Irwin on 12-22-2021 Hemoglobin (Bld) [Mass/Vol] 11.0 g/dL 11.8-15.4 [facility] Blood leukocytes automated c ount (number/volume)Ordered By: Dwight Irwin on 12-22-2021 WBC (Bld) [#/Vol] 8.3 10*3/uL 4.5-11.0 [facility] COVID-19 Positive/NegativeOr dered By: Dwight Irwin on 12-22-2021 SARS-CoV-2 (COVID-19) N gene GINETTE+probe Ql (Resp) Negative Negative [facility] Comment on above: Testing for SARS-CoV -2 by RT-PCR This test was developed and its performance characteristics determined by [employer] and validated at the [facility]. This test has not been FDA [...] (COVID-19) Ag IA.rapid Ql (Resp) Negative Negative [facility] Comment on above: This is a duplicate Anjali SARS Antigen (ROHIT) result to be used for statistical tracking purpose only. Creatine kinase [Enzymatic a ctivity/volume] in Serum or PlasmaOrdered By: Dwgiht Irwin on 12-22-2021 CK [Catalytic activity/Vol] 359 U/L 22-269 [facility] Creatinine and Glomerular fi ltration rate.predicted panel (S/P/Bld)Ordered By: Dwight Irwin on 12-22-2021 Creatinine [Mass/Vol] 1.02 mg/dL 0.44-1.03 [facility] Eosinophils Auto (Bld) [#/Vo l]Ordered By: Dwight Irwin on 12-22-2021 Eosinophils (Bld) [#/Vol] 0.3 10*3/uL 0.0-0.45 [facility] Eosinophils/100 WBC Auto (Bl d)Ordered By: Dwight Irwin on 12-22-2021 Eosinophils/100 WBC (Bld) 4.1 % . [facility] Erythrocyte distribution wid th Auto (RBC) [Ratio]Ordered By: Dwight Irwin on 12-22-2021 Erythrocyte distribution width (RBC) [Ratio] 16.1 % 11.9-15.3 [facility] Estimated glomerular filtrat ion rate (GFR) non- AmericanOrdered By: Dwight Irwin on 12-22-2021 GFR/1.73 sq M.predicted among non-blacks MDRD (S/P/Bld) [Vol rate/Area] 56 mL/Min [facility] Globulin Calc (S) [Mass/Vol] Ordered By: Dwight Irwin on 12-22-2021 Globulin (S) [Mass/Vol] 2.8 g/dL [facility] Hematocrit Auto (Bld) [Volum e fraction]Ordered By: Dwight Irwin on 12-22-2021 Hematocrit (Bld) [Volume fraction] 33.4 % 34.0-46.4 [facility] - Chemistry and C hemistry - challengeOrdered By: Dwight Irwin on 12-22-2021 Natriuretic peptide B (Bld) [Mass/Vol] 36.0 pg/mL 5-100 [facility] - CoagulationOrde red By: Dwight Irwin on 12-22-2021 PT Coag (PPP) [Time] 11.4 s 9.0-12.9 [facility] - Hematology and Cell countsOrdered By: Dwight Irwin on 12-22-2021 Nucleated RBC/100 WBC (Bld) [Ratio] 0.0 % 0-0.5 [facility] - Microbiology an d Antimicrobial susceptibilityOrdered By: Dwight Irwin on 12-22-2021 SARS-CoV-2 (COVID-19) RNA GINETTE+probe Ql (Unsp spec) N/A [facility] Lymphocytes Auto (Bld) [#/Vo l]Ordered By: Dwight Irwin on 12-22-2021 Lymphocytes (Bld) [#/Vol] 2.3 10*3/uL 1.00-4.8 [facility] Lymphocytes/100 WBC Auto (Bl d)Ordered By: Dwight Irwin on 12-22-2021 Lymphocytes/100 WBC (Bld) 27.2 % . [facility] MCH Auto (RBC) [Entitic mass ]Ordered By: Dwight Irwin on 12-22-2021 MCH (RBC) [Entitic mass] 32.0 pg 24.7-34.3 [facility] MCHC Auto (RBC) [Mass/Vol]Or dered By: Diwght Irwin on 12-22-2021 MCHC (RBC) [Mass/Vol] 33.0 g/dL 32.0-35.0 [facility] MCV Auto (RBC) [Entitic vol] Ordered By: Dwight Irwin on 12-22-2021 MCV (RBC) [Entitic vol] 96.8 fL 80-100 [facility] Monocytes Auto (Bld) [#/Vol] Ordered By: Dwight Irwin on 12-22-2021 Monocytes (Bld) [#/Vol] 0.9 10*3/uL 0.0-0.8 [facility] Monocytes/100 WBC Auto (Bld) Ordered By: Dwight Irwin on 12-22-2021 Monocytes/100 WBC (Bld) 10.5 % . [facility] Neutrophils Auto (Bld) [#/Vo l]Ordered By: Dwight Irwin on 12-22-2021 Neutrophils (Bld) [#/Vol] 4.8 10*3/uL 1.8-7.7 [facility] Neutrophils/100 WBC Auto (Bl d)Ordered By: Dwight Irwin on 12-22-2021 Neutrophils/100 WBC (Bld) 57.9 % . [facility] No Panel InformationOrdered By: Dwight Irwin on 12-22-2021 Estimated GFR () > 60 mL/Min [facility] Comment on above: GFR estimated refere nce range: According to KDOQI guidelines, <60 ml/min/1.73m2 is sufficient to diagnose a patient with chronic kidney disease. Pharmacy Creatinine Clearance (Chem 74.04 [facility] SARS Antigen (LFIA) [facility] Platelet mean volume Auto (B ld) [Entitic vol]Ordered By: Dwight Irwin on 12-22-2021 Platelet mean volume (Bld) [Entitic vol] 8.7 fL 6.3-10.7 [facility] Platelet poor plasma interna tional normalized ratio (INR) by coagulation assay (relatOrdered By: Dwight Irwin on 12-22-2021 INR Coag (PPP) [Relative time] 1.0 {INR} [facility] Comment on above: INR Therapeutic Rang [...] 12-22-2021 Platelets (Bld) [#/Vol] 270 10*3/uL 150-450 [facility] Protein [Mass/volume] in Ser um or PlasmaOrdered By: Dwight Irwin on 12-22-2021 Protein [Mass/Vol] 6.2 g/dL 6.1-7.9 [facility] RBC Auto (Bld) [#/Vol]Ordere d By: Dwight Irwin on 12-22-2021 RBC (Bld) [#/Vol] 3.45 10*6/uL 3.60-5.00 [facility] Serum or plasma alanine chou otransferase measurement without P-5'-P (enzymatic activiOrdered By: Dwight Irwin on 12-22-2021 ALT No additional P-5'-P [Catalytic activity/Vol] 46 U/L 10-60 [facility] Serum or plasma albumin/glob ulin mass ratioOrdered By: Dwight Irwin on 12-22-2021 Albumin/Globulin [Mass ratio] 1.2 {ratio} [facility] Serum or plasma alkaline patricia sphatase measurement (enzymatic activity/volume)Ordered By: Dwight Irwin on 12-22-2021 ALP [Catalytic activity/Vol] 72 U/L 32-92 [facility] Serum or plasma aspartate am inotransferase measurement (enzymatic activity/volume)Ordered By: Dwight Irwin on 12-22-2021 AST [Catalytic activity/Vol] 41 U/L 10-42 [facility] Serum or plasma calcium dee urement (mass/volume)Ordered By: Dwight Irwin on 12-22-2021 Calcium [Mass/Vol] 8.7 mg/dL 8.2-10.2 [facility] Serum or plasma chloride kelsey surement (moles/volume)Ordered By: Dwight Irwin on 12-22-2021 Chloride [Moles/Vol] 106 mmol/L 95-114 [facility] Serum or plasma creatine kin ase MB (CKMB)/total creatine kinase (CK) ratio by calculaOrdered By: Dwight Irwin on 12-22-2021 CK.MB Calc [Catalytic fraction] 1.4 % 0.00-2.50 [facility] Serum or plasma creatine kin ase MB measurement (mass/volume)Ordered By: Dwight Irwin on 12-22-2021 CK.MB [Mass/Vol] 5.1 ng/mL 0.6-6.3 [facility] Serum or plasma glucose dee urement (mass/volume)Ordered By: Dwight Irwin on 12-22-2021 Glucose [Mass/Vol] 133 mg/dL 70-100 [facility] Comment on above: ADA recommended refe rence range Random Glucose Reference Range is dependent on time and content of last meal. Glucose of more than 200 mg/dL in a nonstressed, ambulatory subject supports the diagnosis of Diabetes Mellitus. Serum or plasma potassium me asurement (moles/volume)Ordered By: Dwight Irwin on 12-22-2021 Potassium [Moles/Vol] 4.0 mmol/L 3.5-5.1 [facility] Serum or plasma sodium measu rement (moles/volume)Ordered By: Dwight Irwin on 12-22-2021 Sodium [Moles/Vol] 140 mmol/L 136-146 [facility] Serum or plasma total biliru bin measurement (mass/volume)Ordered By: Dwight Irwin on 12-22-2021 Bilirubin [Mass/Vol] 0.3 mg/dL 0.3-1.2 [facility] Serum or plasma total carbon dioxide measurement (moles/volume)Ordered By: Dwight Irwin on 12-22-2021 CO2 [Moles/Vol] 24.5 mmol/L 22.0-30.0 [facility] Serum or plasma urea nitroge n measurement (mass/volume)Ordered By: Dwight Irwin on 12-22-2021 Urea nitrogen [Mass/Vol] 14 mg/dL 03-22 [facility] Troponin I.cardiac [Mass/vol ume] in Serum or Plasma by High sensitivity methodOrdered By: Dwight Irwin on 12-22-2021 Troponin I.cardiac High sensitivity method [Mass/Vol] 4 pg/mL 0- [facility] Physician Referralon 022 Physician Referral [id number]:127 Normal [facility] Ambulatory Visit Summaryon 0 08-13-2021 Ambulatory Visit Summary LONDON VELASQUEZ :1965 Visit Date:08/13/2021 Ambulatory Visit Instructions Your Care Team Attending Physician - Lenin JAIMES MD Primary Care Physician - KASSANDRA KLEIN CNP [...] questions or concerns (more content not included)... [facility] Historical Records Officeon 08-10-2021 Historical Records Office [id number]:127 [facility] Physician Referralon 022 Physician Referral [id number]:127 [facility] POINT OF CARE GLUCOSEon 02-28 Glucose [Mass/Vol] 121 mg/dL Critically high 74-106 [facility] Comment on above: Performed By: #### P OCGLUC #### [facility] [address] [place] [id number] Andreea Sunshine CBC AUTO DIFFon 02-28-2021 BASO # 0.1 103/ul Normal 0.0-0.1 [facility] Comment on above: Performed By: #### C BC #### [facility] [address] [id number] Andreea Sunshine Basophils/100 WBC (Bld) 0.6 % Normal 0.2-2.0 [facility] Comment on above: Performed By: #### C BC #### [facility] [address] [place], [place] [id number] Andreea Sunshine EO # 0.2 103/ul Normal 0.0-0.7 [facility] Comment on above: Performed By: #### C BC #### [facility] [address] [place], [place] [address] Andreea Sunshine Eosinophils/100 WBC (Bld) 2.2 % Normal 0.9-7.0 [facility] Comment on above: Performed By: #### C BC #### [facility] [address] [place], [place] [address] Andreea Sunshine Erythrocyte distribution width (RBC) [Ratio] 16.1 % Critically high 11.0-15.0 [facility] Comment on above: Performed By: #### C BC #### [facility] [address] [place], [place] [id number] Andreea Sunshine Hematocrit (Bld) [Volume fraction] 42.0 % Normal 36.0-48.0 [facility] Comment on above: Performed By: #### C BC #### [facility] [address] [place], [place] [phone] Andreea Sunshine Hemoglobin (Bld) [Mass/Vol] 13.4 g/dL Normal 12.0-16.0 [facility] Comment on above: Performed By: #### C BC #### [facility] [address] [place] [address] Andreea Sunshine IG # 0.02 10e3/ul Normal 0.00-0.03 [facility] Comment on above: Performed By: #### C BC #### [facility] [address] [place] [address] Andreea Sunshine IG % 0.2 % Normal 0.0-0.5 [facility] Comment on above: Performed By: #### C BC #### [facility] [address] [place] [address] Andreea Sunshine LYMPH # 2.1 103/ul Normal 1.2-3.8 [facility] Comment on above: Performed By: #### C BC #### [facility] [address] [place] [address] Andreea Sunshine Lymphocytes/100 WBC (Bld) 25.6 % Normal 20.5-60.0 [facility] Comment on above: Performed By: #### C BC #### [facility] [address] [place] [address] Andreea Sunshine MANUAL DIFF REQ NO Normal [facility] Comment on above: Performed By: #### C BC #### [facility] [address] [place] [address] Andreea Sunshine MCH (RBC) [Entitic mass] 30.5 pg Normal 26.7-34.0 [facility] Comment on above: Performed By: #### C BC #### [facility] [address] [place] [address] Andreearea Diazen MCHC (RBC) [Mass/Vol] 31.9 g/dL Normal 29.9-35.2 [facility] Comment on above: Performed By: #### C BC #### [facility] [address] [place] [address] Andreea Sunshine MCV (RBC) [Entitic vol] 95.7 fL Normal 81.0-99.0 [facility] Comment on above: Performed By: #### C BC #### [facility] [address] [place] [address] Andreea Sunshine MONO # 0.7 103/ul Normal 0.3-0.8 [facility] Comment on above: Performed By: #### C BC #### [facility] [address] [place], [place] [address] Andreea Gonsalez Monocytes/100 WBC (Bld) 8.0 % Normal 1.7-12.0 [facility] Comment on above: Performed By: #### C BC #### [facility] [address] [place], [place] [address] Andreea Gonsalez NEUT # 5.2 103/ul Normal 1.4-6.5 [facility] Comment on above: Performed By: #### C BC #### [facility] [address] [place], [place] [address] Andreea Gonsalez Neutrophils/100 WBC (Bld) 63.4 % Normal 43.0-75.0 [facility] Comment on above: Performed By: #### C BC #### [facility] [address] [place], [place] [address] Andreea Gonsalez Platelet mean volume (Bld) [Entitic vol] 10.8 fL Normal 9.5-13.5 [facility] Comment on above: Performed By: #### C BC #### [facility] [address] [place], [place] [address] Andreea Gonsalez PLT 267 103/ul Normal 150-450 [facility] Comment on above: Performed By: #### C BC #### [facility] [address] [place], [place] [address] Andreearea Diazen RBC 4.39 106/ul Normal 4.20-5.40 [facility] Comment on above: Performed By: #### C BC #### [facility] [address] [place], [place] [address] Andreearea Diazen WBC 8.1 103/ul Normal 4.0-11.0 [facility] Comment on above: Performed By: #### C BC #### [facility] [address] [place], [place] [address] Andreea Gonsalez PROF CHEM 8 (BAS METB)on Anion gap [Moles/Vol] 16.1 mmol/L Normal Th [facility] Comment on above: Performed By: #### B MP #### [facility] [address], [place] [address] Andreea Sunshine Chloride [Moles/Vol] 107 mmol/L Normal 98-107 [facility] Comment on above: Performed By: #### B MP #### [facility] [address], [place] [address] Andreea Sunshine CO2 [Moles/Vol] 23.2 mmol/L Normal 22.0-30.0 [facility] Comment on above: Performed By: #### B MP #### [facility] [address] [id number] Andreea Sunshine Glucose [Mass/Vol] 109 mg/dL Critically high 74-106 [facility] Comment on above: Performed By: #### B MP #### [facility] [address] [address] Andreea Sunshine Potassium [Moles/Vol] 4.3 mmol/L Normal 3.4-5.0 [facility] Comment on above: Performed By: #### B MP #### [facility] [address] [id number] Andreea Sunshine Sodium [Moles/Vol] 142 mmol/L Normal 137-145 [facility] Comment on above: Performed By: #### B MP #### [facility] [address] [id number] Andreea Sunshine Urea nitrogen [Mass/Vol] 12.0 mg/dL Normal 7.0-17.0 [facility] Comment on above: Performed By: #### B MP #### [facility] [address], [place] [address] Andreea Sunshine Albumin [Mass/volume] in Ser um or Plasmaon 08-21-2020 Albumin [Mass/Vol] 4.0 g/dL 3.2-5.5 [facility] Automated basophil %on 08-21 Basophils/100 WBC (Bld) 0.3 % [facility] Automated basophil counton 0 08-21-2020 Basophils (Bld) [#/Vol] 0.0 10*3/uL 0.0-0.2 [facility] Automated blood lymphocyte c ount (number/volume)on 08-21-2020 Lymphocytes (Bld) [#/Vol] 1.1 10*3/uL 1.00-4.8 [facility] Automated blood lymphocyte c ount as percentage of total leukocyteson 08-21-2020 Lymphocytes/100 WBC (Bld) 6.5 % [facility] Automated blood monocyte cou nton 08-21-2020 Monocytes (Bld) [#/Vol] 0.7 10*3/uL 0.0-0.8 [facility] Automated blood platelet cou nt (count/volume)on 08-21-2020 Platelets (Bld) [#/Vol] 328 10*3/uL 150-450 [facility] Automated blood platelet kelsey n volume measurementon 08-21-2020 Platelet mean volume (Bld) [Entitic vol] 9.4 fL 6.3-10.7 [facility] Automated eosinophil %on Eosinophils/100 WBC (Bld) 0.0 % [facility] Automated eosinophil counton 08-21-2020 Eosinophils (Bld) [#/Vol] 0.0 10*3/uL 0.0-0.45 [facility] Automated erythrocyte distri bution width ratioon 08-21-2020 Erythrocyte distribution width (RBC) [Ratio] 15.3 % 11.9-15.3 [facility] Automated erythrocyte mean c orpuscular hemoglobin (mass per erythrocyte)on 08-21-2020 MCH (RBC) [Entitic mass] 30.9 pg 24.7-34.3 [facility] Automated erythrocyte mean c orpuscular hemoglobin concentration measurement (mass/volon 08-21-2020 MCHC (RBC) [Mass/Vol] 33.5 g/dL 32.0-35.0 [facility] Automated erythrocyte mean c orpuscular volumeon 08-21-2020 MCV (RBC) [Entitic vol] 92.1 fL 80-100 [facility] Automated erythrocytes count in urine sediment (number/area)on 08-21-2020 RBC Auto (Urine sed) [#/Area] 0-1 [HPF] [facility] Automated leukocytes count i n urine sediment (number/area)on 08-21-2020 WBC Auto (Urine sed) [#/Area] 5-9 [HPF] [facility] Automated monocyte %on 08-21 Monocytes/100 WBC (Bld) 3.9 % [facility] Automated neutrophil %on Neutrophils/100 WBC (Bld) 89.3 % [facility] Automated urine color determ inationon 08-21-2020 Color (U) Yellow Yellow [facility] Blood erythrocytes automated count (number/volume)on 08-21-2020 RBC (Bld) [#/Vol] 4.48 10*6/uL 3.60-5.00 [facility] Blood hemoglobin measurement (mass/volume)on 08-21-2020 Hemoglobin (Bld) [Mass/Vol] 13.8 g/dL 11.8-15.4 [facility] Blood leukocytes automated c ount (number/volume)on 08-21-2020 WBC (Bld) [#/Vol] 16.5 10*3/uL 4.5-11.0 [facility] Blood neutrophil count by au tomated method (number/volume)on 08-21-2020 Neutrophils (Bld) [#/Vol] 14.8 10*3/uL 1.8-7.7 [facility] Capillary blood glucose dee urement by glucometer (mass/volume)on 08-21-2020 Glucose [Mass/Vol] 266 mg/dL [facility] Comment on above: Random Glucose Refer ence Range is dependent on time and content of last meal. Glucose of more than 200 mg/dL in a nonstressed, ambulatory subject supports the diagnosis of Diabetes Mellitus. Estimated glomerular filtrat ion rate (GFR) non- Americanon 08-21-2020 GFR/1.73 sq M predicted among non-blacks MDRD (S/P/Bld) [Vol rate/Area] mL/min/{1.73_m2} [facility] Hematocrit [Volume Fraction] of Blood by Automated counton 08-21-2020 Hematocrit (Bld) [Volume fraction] 41.3 % 34.0-46.4 [facility] Metabolic Panelon 08-21-2020 Glucose [Mass/Vol] Glu2: cleaned meter [facility] Otheron 08-21-2020 GFR/1.73 sq M.predicted MDRD (S/P/Bld) [Vol rate/Area] mL/min/{1.73_m2} [facility] Comment on above: GFR estimated refere nce range: According to KDOQI guidelines, <60 ml/min/1.73m2 is sufficient to diagnose a patient with chronic kidney disease. Pharmacy Creatinine Clearance (Chem 87.90 [facility] Nucleated RBC/100 WBC (Bld) [Ratio] 0.0 % 0-0.5 [facility] Protein [Mass/volume] in Ser um or Plasmaon 08-21-2020 Protein [Mass/Vol] 7.2 g/dL 6.1-7.9 [facility] Serum globulin measurement b y calculation (mass/volume)on 08-21-2020 Globulin (S) [Mass/Vol] 3.2 g/dL [facility] Serum or plasma alanine chou otransferase measurement without P-5'-P (enzymatic activion 08-21-2020 ALT No additional P-5'-P [Catalytic activity/Vol] 31 U/L 10-60 [facility] Serum or plasma albumin/glob ulin mass ratioon 08-21-2020 Albumin/Globulin [Mass ratio] 1.3 {ratio} [facility] Serum or plasma alkaline patricia sphatase measurement (enzymatic activity/volume)on 08-21-2020 ALP [Catalytic activity/Vol] 76 U/L 32-92 [facility] Serum or plasma aspartate am inotransferase measurement (enzymatic activity/volume)on 08-21-2020 AST [Catalytic activity/Vol] 21 U/L 10-42 [facility] Serum or plasma calcium dee urement (mass/volume)on 08-21-2020 Calcium [Mass/Vol] 9.8 mg/dL 8.2-10.2 [facility] Serum or plasma chloride kelsey surement (moles/volume)on 08-21-2020 Chloride [Moles/Vol] 99 mmol/L 95-114 [facility] Serum or plasma creatinine m easurement with calculation of estimated glomerular filtron 08-21-2020 Creatinine [Mass/Vol] 0.90 mg/dL 0.44-1.03 [facility] Serum or plasma glucose dee urement (mass/volume)on 08-21-2020 Glucose [Mass/Vol] 350 mg/dL 70-100 [facility] Comment on above: ADA recommended refe rence rangeRandom Glucose Reference Range is dependent on time and content of last meal. Glucose of more than 200 mg/dL in a nonstressed, ambulatory subject supports the diagnosis of Diabetes Mellitus. Serum or plasma potassium me asurement (moles/volume)on 08-21-2020 Potassium [Moles/Vol] 3.9 mmol/L 3.5-5.1 [facility] Serum or plasma sodium measu rement (moles/volume)on 08-21-2020 Sodium [Moles/Vol] 135 mmol/L 136-146 [facility] Serum or plasma total biliru bin measurement (mass/volume)on 08-21-2020 Bilirubin [Mass/Vol] 0.6 mg/dL 0.3-1.2 [facility] Serum or plasma total carbon dioxide measurement (moles/volume)on 08-21-2020 CO2 [Moles/Vol] 20.3 mmol/L 22.0-30.0 [facility] Serum or plasma urea nitroge n measurement (mass/volume)on 08-21-2020 Urea nitrogen [Mass/Vol] 14 mg/dL 9-23 [facility] Specific gravity of Urine by Automated test stripon 08-21-2020 Specific gravity (U) [Rel density] 1.036 1.001-1.03 0 [facility] Squamous epithelial cells de tection in urine sediment by light microscopyon 08-21-2020 Epithelial cells.squamous LM Ql (Urine sed) 1-2 [HPF] [facility] Urinalysison 08-21-2020 Hyaline casts LM Ql (Urine sed) 0-8 [LPF] [facility] Urine bacteria detection by automated methodon 08-21-2020 Bacteria Auto Ql (U) None seen None Seen [facility] Urine clarity by refractomet ry automatedon 08-21-2020 Clarity Refractometry automated (U) Clear Clear [facility] Urine glucose measurement by automated test strip (mass/volume)on 08-21-2020 Glucose Auto test strip (U) [Mass/Vol] >=1000 mg/dL Normal [facility] Urine hemoglobin detection b y automated test stripon 08-21-2020 Hemoglobin Auto test strip Ql (U) Negative Negative [facility] Urine ketones measurement by automated test strip (mass/volume)on 08-21-2020 Ketones (U) [Mass/Vol] Trace Negative [facility] Urine leukocyte esterase det ection by automated test stripon 08-21-2020 Leukocyte esterase Auto test strip Ql (U) 1+ Negative [facility] Urine nitrite detection by t est stripon 08-21-2020 Nitrite Ql (U) Negative Negative [facility] Urine pH measurement by auto mated test stripon 08-21-2020 pH (U) 6.0 [pH] 5.0-9.0 [facility] Urine protein measurement by automated test strip (mass/volume)on 08-21-2020 Protein (U) [Mass/Vol] Negative Negative [facility] Urine total bilirubin detect ion by test stripon 08-21-2020 Bilirubin Ql (U) Negative Negative [facility] Urine urobilinogen measureme nt by automated test strip (mass/volume)on 08-21-2020 Urobilinogen (U) [Mass/Vol] Normal mg/dL Normal [facility] Albumin [Mass/volume] in Ser um or Plasmaon 08-20-2020 Albumin [Mass/Vol] 3.5 g/dL 3.2-5.5 [facility] Automated basophil %on 08-20 Basophils/100 WBC (Bld) 0.4 % [facility] Automated basophil counton 0 08-20-2020 Basophils (Bld) [#/Vol] 0.1 10*3/uL 0.0-0.2 [facility] Automated blood lymphocyte c ount (number/volume)on 08-20-2020 Lymphocytes (Bld) [#/Vol] 1.4 10*3/uL 1.00-4.8 [facility] Automated blood lymphocyte c ount as percentage of total leukocyteson 08-20-2020 Lymphocytes/100 WBC (Bld) 8.2 % [facility] Automated blood monocyte cou nton 08-20-2020 Monocytes (Bld) [#/Vol] 0.9 10*3/uL 0.0-0.8 [facility] Automated blood platelet cou nt (count/volume)on 08-20-2020 Platelets (Bld) [#/Vol] 298 10*3/uL 150-450 [facility] Automated blood platelet kelsey n volume measurementon 08-20-2020 Platelet mean volume (Bld) [Entitic vol] 8.8 fL 6.3-10.7 [facility] Automated eosinophil %on Eosinophils/100 WBC (Bld) 0.0 % [facility] Automated eosinophil counton 08-20-2020 Eosinophils (Bld) [#/Vol] 0.0 10*3/uL 0.0-0.45 [facility] Automated erythrocyte distri bution width ratioon 08-20-2020 Erythrocyte distribution width (RBC) [Ratio] 15.4 % 11.9-15.3 [facility] Automated erythrocyte mean c orpuscular hemoglobin (mass per erythrocyte)on 08-20-2020 MCH (RBC) [Entitic mass] 31.3 pg 24.7-34.3 [facility] Automated erythrocyte mean c orpuscular hemoglobin concentration measurement (mass/volon 08-20-2020 MCHC (RBC) [Mass/Vol] 34.1 g/dL 32.0-35.0 [facility] Automated erythrocyte mean c orpuscular volumeon 08-20-2020 MCV (RBC) [Entitic vol] 91.8 fL 80-100 [facility] Automated monocyte %on 08-20 Monocytes/100 WBC (Bld) 5.1 % [facility] Automated neutrophil %on Neutrophils/100 WBC (Bld) 86.3 % [facility] Automated urine color determ inationon 08-20-2020 Color (U) Yellow Yellow [facility] Blood erythrocytes automated count (number/volume)on 08-20-2020 RBC (Bld) [#/Vol] 4.18 10*6/uL 3.60-5.00 [facility] Blood hemoglobin measurement (mass/volume)on 08-20-2020 Hemoglobin (Bld) [Mass/Vol] 13.1 g/dL 11.8-15.4 [facility] Blood leukocytes automated c ount (number/volume)on 08-20-2020 WBC (Bld) [#/Vol] 16.8 10*3/uL 4.5-11.0 [facility] Blood neutrophil count by au tomated method (number/volume)on 08-20-2020 Neutrophils (Bld) [#/Vol] 14.5 10*3/uL 1.8-7.7 [facility] Capillary blood glucose dee urement by glucometer (mass/volume)on 08-20-2020 Glucose [Mass/Vol] 213 mg/dL [facility] Comment on above: Random Glucose Refer ence Range is dependent on time and content of last meal. Glucose of more than 200 mg/dL in a nonstressed, ambulatory subject supports the diagnosis of Diabetes Mellitus. Creatine kinase [Enzymatic a ctivity/volume] in Serum or Plasmaon 08-20-2020 CK [Catalytic activity/Vol] 64 U/L [facility] Estimated glomerular filtrat ion rate (GFR) non- Americanon 08-20-2020 GFR/1.73 sq M predicted among non-blacks MDRD (S/P/Bld) [Vol rate/Area] mL/min/{1.73_m2} [facility] Hematocrit [Volume Fraction] of Blood by Automated counton 08-20-2020 Hematocrit (Bld) [Volume fraction] 38.4 % 34.0-46.4 [facility] Otheron 08-20-2020 GFR/1.73 sq M.predicted MDRD (S/P/Bld) [Vol rate/Area] mL/min/{1.73_m2} [facility] Comment on above: GFR estimated refere nce range: According to KDOQI guidelines, <60 ml/min/1.73m2 is sufficient to diagnose a patient with chronic kidney disease. Lipase [Catalytic activity/Vol] 27.0 U/L [facility] Nucleated RBC/100 WBC (Bld) [Ratio] 0.1 % 0-0.5 [facility] Creatinine Clearance (Chem 94.30 [facility] Protein [Mass/volume] in Ser um or Plasmaon 08-20-2020 Protein [Mass/Vol] 7.0 g/dL 6.1-7.9 [facility] Serum globulin measurement b y calculation (mass/volume)on 08-20-2020 Globulin (S) [Mass/Vol] 3.5 g/dL [facility] Serum or plasma alanine chou otransferase measurement without P-5'-P (enzymatic activion 08-20-2020 ALT No additional P-5'-P [Catalytic activity/Vol] 38 U/L 10-60 [facility] Serum or plasma albumin/glob ulin mass ratioon 08-20-2020 Albumin/Globulin [Mass ratio] 1.0 {ratio} [facility] Serum or plasma alkaline patricia sphatase measurement (enzymatic activity/volume)on 08-20-2020 ALP [Catalytic activity/Vol] 73 U/L 32-92 [facility] Serum or plasma amylase dee urement (enzymatic activity/volume)on 08-20-2020 Amylase [Catalytic activity/Vol] 34 U/L 28-100 [facility] Serum or plasma aspartate am inotransferase measurement (enzymatic activity/volume)on 08-20-2020 AST [Catalytic activity/Vol] 27 U/L 10-42 [facility] Serum or plasma beta choriog onadotropin measurement (units/volume)on 08-20-2020 HCG.beta subunit Qn 1.35 m[IU]/mL [facility] Comment on above: Approximate Approxim ate hCG Gestational Age Range (mIU/ml) (weeks)0.2-1 5-50 1-2 50-500 2-3 100-5,000 3-4 500-10,000 4-5 1,000-50,000 5-6 10,000-100,000 6-8 15,000-200,000 8-12 10,000-100,000 Serum or plasma calcium dee urement (mass/volume)on 08-20-2020 Calcium [Mass/Vol] 9.9 mg/dL 8.2-10.2 [facility] Serum or plasma cardiac trop onin I measurement (mass/volume)on 08-20-2020 Troponin I.cardiac [Mass/Vol] 0.02 ng/mL 0-0.02 [facility] Comment on above: MARILYN [place] Cut off value > or equal to 0.03 ng/mL in conjunction with clinical conditions of myocardial infarction.([email or web address]) Serum or plasma chloride kelsey surement (moles/volume)on 08-20-2020 Chloride [Moles/Vol] 102 mmol/L 95-114 [facility] Serum or plasma creatine kin ase MB (CKMB)/total creatine kinase (CK) ratio by calculaon 08-20-2020 CK.MB Calc [Catalytic fraction] 4.0 0.00-2.50 [facility] Serum or plasma creatine kin ase MB measurement (mass/volume)on 08-20-2020 CK.MB [Mass/Vol] 2.6 ng/mL 0.6-6.3 [facility] Serum or plasma creatinine m easurement with calculation of estimated glomerular filtron 08-20-2020 Creatinine [Mass/Vol] 0.82 mg/dL 0.44-1.03 [facility] Serum or plasma glucose dee urement (mass/volume)on 08-20-2020 Glucose [Mass/Vol] 269 mg/dL 70-100 [facility] Comment on above: ADA recommended refe rence rangeRandom Glucose Reference Range is dependent on time and content of last meal. Glucose of more than 200 mg/dL in a nonstressed, ambulatory subject supports the diagnosis of Diabetes Mellitus. Serum or plasma potassium me asurement (moles/volume)on 08-20-2020 Potassium [Moles/Vol] 4.0 mmol/L 3.5-5.1 [facility] Serum or plasma sodium measu rement (moles/volume)on 08-20-2020 Sodium [Moles/Vol] 135 mmol/L 136-146 [facility] Serum or plasma total biliru bin measurement (mass/volume)on 08-20-2020 Bilirubin [Mass/Vol] 0.5 mg/dL 0.3-1.2 [facility] Serum or plasma total carbon dioxide measurement (moles/volume)on 08-20-2020 CO2 [Moles/Vol] 20.7 mmol/L 22.0-30.0 [facility] Serum or plasma urea nitroge n measurement (mass/volume)on 08-20-2020 Urea nitrogen [Mass/Vol] 14 mg/dL 03-22 [facility] Specific gravity of Urine by Automated test stripon 08-20-2020 Specific gravity (U) [Rel density] 1.038 1.001-1.03 0 [facility] Urine clarity by refractomet ry automatedon 08-20-2020 Clarity Refractometry automated (U) Clear Clear [facility] Urine glucose measurement by automated test strip (mass/volume)on 08-20-2020 Glucose Auto test strip (U) [Mass/Vol] >=1000 mg/dL Normal [facility] Urine hemoglobin detection b y automated test stripon 08-20-2020 Hemoglobin Auto test strip Ql (U) Negative Negative [facility] Urine ketones measurement by automated test strip (mass/volume)on 08-20-2020 Ketones (U) [Mass/Vol] Trace Negative [facility] Urine leukocyte esterase det ection by automated test stripon 08-20-2020 Leukocyte esterase Auto test strip Ql (U) Negative Negative [facility] Urine nitrite detection by t est stripon 08-20-2020 Nitrite Ql (U) Negative Negative [facility] Urine pH measurement by auto mated test stripon 08-20-2020 pH (U) 6.5 [pH] 5.0-9.0 [facility] Urine protein measurement by automated test strip (mass/volume)on 08-20-2020 Protein (U) [Mass/Vol] Negative Negative [facility] Urine total bilirubin detect ion by test stripon 08-20-2020 Bilirubin Ql (U) Negative Negative [facility] Urine urobilinogen measureme nt by automated test strip (mass/volume)on 08-20-2020 Urobilinogen (U) [Mass/Vol] Normal mg/dL Normal [facility] Automated basophil %on 06-08 Basophils/100 WBC (Bld) 0.6 % [facility] Automated basophil counton 1 08-09-2019 Basophils (Bld) [#/Vol] 0.0 10*3/uL 0.0-0.2 [facility] Automated blood lymphocyte c ount (number/volume)on 06-08-2020 Lymphocytes (Bld) [#/Vol] 2.2 10*3/uL 1.00-4.8 [facility] Automated blood lymphocyte c ount as percentage of total leukocyteson 06-08-2020 Lymphocytes/100 WBC (Bld) 26.1 % [facility] Automated blood monocyte cou nton 06-08-2020 Monocytes (Bld) [#/Vol] 0.6 10*3/uL 0.0-0.8 [facility] Automated blood platelet cou nt (count/volume)on 06-08-2020 Platelets (Bld) [#/Vol] 295 10*3/uL 150-450 [facility] Automated blood platelet kelsey n volume measurementon 06-08-2020 Platelet mean volume (Bld) [Entitic vol] 10.0 fL 6.3-10.7 [facility] Automated eosinophil %on Eosinophils/100 WBC (Bld) 2.1 % [facility] Automated eosinophil counton 06-08-2020 Eosinophils (Bld) [#/Vol] 0.2 10*3/uL 0.0-0.45 [facility] Automated erythrocyte distri bution width ratioon 06-08-2020 Erythrocyte distribution width (RBC) [Ratio] 16.0 % 11.9-15.3 [facility] Automated erythrocyte mean c orpuscular hemoglobin (mass per erythrocyte)on 06-08-2020 MCH (RBC) [Entitic mass] 29.6 pg 24.7-34.3 [facility] Automated erythrocyte mean c orpuscular hemoglobin concentration measurement (mass/volon 06-08-2020 MCHC (RBC) [Mass/Vol] 32.6 g/dL 32.0-35.0 [facility] Automated erythrocyte mean c orpuscular volumeon 06-08-2020 MCV (RBC) [Entitic vol] 90.7 fL 80-100 [facility] Automated monocyte %on 06-08 Monocytes/100 WBC (Bld) 7.8 % [facility] Automated neutrophil %on Neutrophils/100 WBC (Bld) 63.4 % [facility] Blood erythrocytes automated count (number/volume)on 06-08-2020 RBC (Bld) [#/Vol] 4.19 10*6/uL 3.60-5.00 [facility] Blood hemoglobin measurement (mass/volume)on 06-08-2020 Hemoglobin (Bld) [Mass/Vol] 12.4 g/dL 11.8-15.4 [facility] Blood leukocytes automated c ount (number/volume)on 06-08-2020 WBC (Bld) [#/Vol] 8.3 10*3/uL 3.8-11.6 [facility] Blood neutrophil count by au tomated method (number/volume)on 06-08-2020 Neutrophils (Bld) [#/Vol] 5.2 10*3/uL 1.8-7.7 [facility] Body fluid albumin measureme nt (mass/volume)on 06-08-2020 Albumin (Body fld) [Mass/Vol] 3.3 g/dL 3.2-5.5 [facility] Estimated glomerular filtrat ion rate (GFR) non- Americanon 06-08-2020 GFR/1.73 sq M predicted among non-blacks MDRD (S/P/Bld) [Vol rate/Area] mL/min/{1.73_m2} [facility] Hematocrit [Volume Fraction] of Blood by Automated counton 06-08-2020 Hematocrit (Bld) [Volume fraction] 38.0 % 34.0-46.4 [facility] Otheron 06-08-2020 25-Hydroxy Vitamin D Total 39.0 ng/mL 30-100 [facility] Comment on above: VITAMIN D STATUS 25( [place])VITAMIN D RANGE (ng/mL) Deficient <20 Insufficient 20 to <30Sufficient 30 to 100Reference: Noemí MF,Reese BERNAL, Zaria LI, et al. Evaluation,treatment, and prevention of vitamin D deficiency; an Endocrine Society clinical practice guideline. JCEM. 2010; 96(7):1911-30. Cobalamin (Vitamin B12) [Mass/Vol] 241 pg/mL 180-914 [facility] GFR/1.73 sq M.predicted MDRD (S/P/Bld) [Vol rate/Area] mL/min/{1.73_m2} [facility] Comment on above: GFR estimated refere nce range: According to KDOQI guidelines, <60 ml/min/1.73m2 is sufficient to diagnose a patient with chronic kidney disease. Nucleated RBC/100 WBC (Bld) [Ratio] 0.2 % 0-0.5 [facility] Creatinine Clearance (Chem N/A [facility] Protein [Mass/volume] in Ser um or Plasmaon 06-08-2020 Protein [Mass/Vol] 6.2 g/dL 6.1-7.9 [facility] Serum globulin measurement b y calculation (mass/volume)on 06-08-2020 Globulin (S) [Mass/Vol] 2.9 g/dL [facility] Serum or plasma alanine chou otransferase measurement without P-5'-P (enzymatic activion 06-08-2020 ALT No additional P-5'-P [Catalytic activity/Vol] 28 U/L 1060 [facility] Serum or plasma albumin/glob ulin mass ratioon 06-08-2020 Albumin/Globulin [Mass ratio] 1.1 {ratio} [facility] Serum or plasma alkaline patricia sphatase measurement (enzymatic activity/volume)on 06-08-2020 ALP [Catalytic activity/Vol] 78 U/L 32-92 [facility] Serum or plasma aspartate am inotransferase measurement (enzymatic activity/volume)on 06-08-2020 AST [Catalytic activity/Vol] 23 U/L 10-42 [facility] Serum or plasma calcium dee urement (mass/volume)on 06-08-2020 Calcium [Mass/Vol] 9.2 mg/dL 8.2-10.2 [facility] Serum or plasma chloride kelsey surement (moles/volume)on 06-08-2020 Chloride [Moles/Vol] 110 mmol/L 95-114 [facility] Serum or plasma creatinine m easurement with calculation of estimated glomerular filtron 06-08-2020 Creatinine [Mass/Vol] 0.73 mg/dL 0.44-1.03 [facility] Serum or plasma glucose dee urement (mass/volume)on 06-08-2020 Glucose [Mass/Vol] 119 mg/dL 70-100 [facility] Comment on above: Delta: 221 on -[id number] recommended reference rangeRandom Glucose Reference Range is dependent on time and content of last meal. Glucose of more than 200 mg/dL in a nonstressed, ambulatory subject supports the diagnosis of Diabetes Mellitus. Serum or plasma potassium me asurement (moles/volume)on 06-08-2020 Potassium [Moles/Vol] 4.3 mmol/L 3.5-5.1 [facility] Serum or plasma sodium measu rement (moles/volume)on 06-08-2020 Sodium [Moles/Vol] 141 mmol/L 136-146 [facility] Serum or plasma total biliru bin measurement (mass/volume)on 06-08-2020 Bilirubin [Mass/Vol] 0.4 mg/dL 0.3-1.2 [facility] Serum or plasma total carbon dioxide measurement (moles/volume)on 06-08-2020 CO2 [Moles/Vol] 22.2 mmol/L 22.0-30.0 [facility] Serum or plasma urea nitroge n measurement (mass/volume)on 06-08-2020 Urea nitrogen [Mass/Vol] 8 mg/dL 03-22 [facility] Activated partial thrombopla stin time (aPTT) in platelet poor plasma by coagulation aon 06-07-2020 aPTT Coag (PPP) [Time] 29.1 s 23.0-35.0 [facility] Automated basophil %on 06-07 Basophils/100 WBC (Bld) 0.6 % [facility] Automated basophil counton 1 08-08-2019 Basophils (Bld) [#/Vol] 0.1 10*3/uL 0.0-0.2 [facility] Automated blood lymphocyte c ount (number/volume)on 06-07-2020 Lymphocytes (Bld) [#/Vol] 2.8 10*3/uL 1.00-4.8 [facility] Automated blood lymphocyte c ount as percentage of total leukocyteson 06-07-2020 Lymphocytes/100 WBC (Bld) 32.3 % [facility] Automated blood monocyte cou nton 06-07-2020 Monocytes (Bld) [#/Vol] 0.9 10*3/uL 0.0-0.8 [facility] Automated blood platelet cou nt (count/volume)on 06-07-2020 Platelets (Bld) [#/Vol] 268 10*3/uL 150-450 [facility] Automated blood platelet kelsey n volume measurementon 06-07-2020 Platelet mean volume (Bld) [Entitic vol] 9.3 fL 6.3-10.7 [facility] Automated eosinophil %on Eosinophils/100 WBC (Bld) 2.2 % [facility] Automated eosinophil counton 06-07-2020 Eosinophils (Bld) [#/Vol] 0.2 10*3/uL 0.0-0.45 [facility] Automated erythrocyte distri bution width ratioon 06-07-2020 Erythrocyte distribution width (RBC) [Ratio] 15.9 % 11.9-15.3 [facility] Automated erythrocyte mean c orpuscular hemoglobin (mass per erythrocyte)on 06-07-2020 MCH (RBC) [Entitic mass] 30.2 pg 24.7-34.3 [facility] Automated erythrocyte mean c orpuscular hemoglobin concentration measurement (mass/volon 06-07-2020 MCHC (RBC) [Mass/Vol] 33.0 g/dL 32.0-35.0 [facility] Automated erythrocyte mean c orpuscular volumeon 06-07-2020 MCV (RBC) [Entitic vol] 91.5 fL 80-100 [facility] Automated monocyte %on 06-07 Monocytes/100 WBC (Bld) 10.8 % [facility] Automated neutrophil %on Neutrophils/100 WBC (Bld) 54.1 % [facility] Blood erythrocytes automated count (number/volume)on 06-07-2020 RBC (Bld) [#/Vol] 3.88 10*6/uL 3.60-5.00 [facility] Blood hemoglobin measurement (mass/volume)on 06-07-2020 Hemoglobin (Bld) [Mass/Vol] 11.7 g/dL 11.8-15.4 [facility] Blood leukocytes automated c ount (number/volume)on 06-07-2020 WBC (Bld) [#/Vol] 8.6 10*3/uL 4.5-11.0 [facility] Blood neutrophil count by au tomated method (number/volume)on 06-07-2020 Neutrophils (Bld) [#/Vol] 4.6 10*3/uL 1.8-7.7 [facility] Body fluid albumin measureme nt (mass/volume)on 06-07-2020 Albumin (Body fld) [Mass/Vol] 3.1 g/dL 3.2-5.5 [facility] Cardiacon 06-07-2020 Natriuretic peptide B (Bld) [Mass/Vol] 8.0 pg/mL 5-100 [facility] Creatine kinase [Enzymatic a ctivity/volume] in Serum or Plasmaon 06-07-2020 CK [Catalytic activity/Vol] 110 U/L 22-269 [facility] Estimated glomerular filtrat ion rate (GFR) non- Americanon 06-07-2020 GFR/1.73 sq M predicted among non-blacks MDRD (S/P/Bld) [Vol rate/Area] mL/min/{1.73_m2} [facility] Hematocrit [Volume Fraction] of Blood by Automated counton 06-07-2020 Hematocrit (Bld) [Volume fraction] 35.5 % 34.0-46.4 [facility] Hematologyon 06-07-2020 PT Coag (PPP) [Time] 11.0 s 9.0-12.9 [facility] Otheron 06-07-2020 D-Dimer Quantitative (PE/DVT) < 200 ng/mL 0-243 [facility] Comment on above: The reference range [...] sq M.predicted MDRD (S/P/Bld) [Vol rate/Area] mL/min/{1.73_m2} [facility] Comment on above: GFR estimated refere nce range: According to KDOQI guidelines, <60 ml/min/1.73m2 is sufficient to diagnose a patient with chronic kidney disease. Nucleated RBC/100 WBC (Bld) [Ratio] 0.1 % 0-0.5 [facility] Creatinine Clearance (Chem 85.38 [facility] Platelet poor plasma interna tional normalized ratio (INR) by coagulation assay (relaton 06-07-2020 INR Coag (PPP) [Relative time] 1.0 {INR} [facility] Comment on above: INR Therapeutic Rang [...] Plasmaon 06-07-2020 Protein [Mass/Vol] 6.1 g/dL 6.1-7.9 [facility] Serum globulin measurement b y calculation (mass/volume)on 06-07-2020 Globulin (S) [Mass/Vol] 3.0 g/dL [facility] Serum or plasma alanine chou otransferase measurement without P-5'-P (enzymatic activion 06-07-2020 ALT No additional P-5'-P [Catalytic activity/Vol] 27 U/L 10-60 [facility] Serum or plasma albumin/glob ulin mass ratioon 06-07-2020 Albumin/Globulin [Mass ratio] 1.0 {ratio} [facility] Serum or plasma alkaline patricia sphatase measurement (enzymatic activity/volume)on 06-07-2020 ALP [Catalytic activity/Vol] 75 U/L 32-92 [facility] Serum or plasma aspartate am inotransferase measurement (enzymatic activity/volume)on 06-07-2020 AST [Catalytic activity/Vol] 24 U/L 10-42 [facility] Serum or plasma calcium dee urement (mass/volume)on 06-07-2020 Calcium [Mass/Vol] 8.7 mg/dL 8.2-10.2 [facility] Serum or plasma cardiac trop onin I measurement (mass/volume)on 06-07-2020 Troponin I.cardiac [Mass/Vol] ng/mL 0-0.02 [facility] Comment on above: MARILYN [place] Cut off value > or equal to 0.03 ng/mL in conjunction with clinical conditions of myocardial infarction.([email or web address]) Serum or plasma chloride kelsey surement (moles/volume)on 06-07-2020 Chloride [Moles/Vol] 111 mmol/L 95-114 [facility] Serum or plasma creatine kin ase MB (CKMB)/total creatine kinase (CK) ratio by calculaon 06-07-2020 CK.MB Calc [Catalytic fraction] 1.9 0.00-2.50 [facility] Serum or plasma creatine kin ase MB measurement (mass/volume)on 06-07-2020 CK.MB [Mass/Vol] 2.1 ng/mL 0.6-6.3 [facility] Serum or plasma creatinine m easurement with calculation of estimated glomerular filtron 06-07-2020 Creatinine [Mass/Vol] 0.92 mg/dL 0.44-1.03 [facility] Serum or plasma glucose dee urement (mass/volume)on 06-07-2020 Glucose [Mass/Vol] 221 mg/dL 70-100 [facility] Comment on above: ADA recommended refe rence rangeRandom Glucose Reference Range is dependent on time and content of last meal. Glucose of more than 200 mg/dL in a nonstressed, ambulatory subject supports the diagnosis of Diabetes Mellitus. Serum or plasma potassium me asurement (moles/volume)on 06-07-2020 Potassium [Moles/Vol] 3.6 mmol/L 3.5-5.1 [facility] Serum or plasma sodium measu rement (moles/volume)on 06-07-2020 Sodium [Moles/Vol] 141 mmol/L 136-146 [facility] Serum or plasma total biliru bin measurement (mass/volume)on 06-07-2020 Bilirubin [Mass/Vol] mg/dL 0.3-1.2 [facility] Serum or plasma total carbon dioxide measurement (moles/volume)on 06-07-2020 CO2 [Moles/Vol] 19.9 mmol/L 22.0-30.0 [facility] Serum or plasma urea nitroge n measurement (mass/volume)on 06-07-2020 Urea nitrogen [Mass/Vol] 8 mg/dL 03-22 [facility] Respiratory specimen 2019 no kayleigh coronavirus RNA detection by probe and target amplifion 05-23-2020 Respiratory specimen 2019 novel coronavirus RNA detection by probe and target amplifi Not detected Not Detected [facility] Comment on above: This nucleic acid [...] SARS-CoV-2 virusand/or diagnosis of COVID-19 infection under mehlyel490(b)(1) of the Act, 21 U.S.C. 360bbb-3(b) (1), [...] negative(not detected) result in this assay.Performed at: [facility] [id number] [facility], [place], [place] [id number] Director: Fany Mayo MD, Phone: [phone] Bobby 04-24-2017 ALEXY MCCORMICK NUCLEOLAR Normal [facility] Comment on above: Performed By: #### 1 0196 ####[facility] ALEXY SCREEN 1:80 Abnormal <1:40,1:40 [facility] Comment on above: Performed By: #### 1 0196 ####[place] [id number] C REACTIVE PROTEINon 017 C reactive protein (CRP) 8.3 mg/L High 0.0-7.0 [facility] Comment on above: Performed By: #### 1 0204, 09563 ####[facility] CBC W/DIFFon 04-24-2017 Basophils Auto #/vol (Bld) 0.5 % Normal 0.0-2.0 [facility] Comment on above: Performed By: #### 5 0103, 80804 ####[address] Eosinophils/100 leukocytes 2.1 % Normal 0.0-5.0 [facility] Comment on above: Performed By: #### 5 0103, 07090 ####[place] [id number] Erythrocyte distribution width Auto Ratio (RBC) 16.2 % Normal 11.5-16.9 [facility] Comment on above: Performed By: #### 5 0103, 34615 ####[place] [id number] Erythrocytes (RBC) 4.11 mill/mm3 Normal 3.50-5.50 [facility] Comment on above: Performed By: #### 5 0103, 38937 ####[place] [address] Hematocrit (HCT) 38.6 % Normal 36.0-48.0 [facility] Comment on above: Performed By: #### 5 0103, 80719 ####[facility] Hemoglobin mass conc (Bld) 12.4 g/dL Normal 12.0-15.0 [facility] Comment on above: Performed By: #### 5 010, 87875 ####[facility] [facility] [place] [address], [facility] Lymphocytes/100 leukocytes 30.0 % Normal 20.0-40.0 [facility] Comment on above: Performed By: #### 5 010, 30047 ####[facility] MCH 30.2 pg Normal 24.0-32.0 [facility] Comment on above: Performed By: #### 5 102, 40951 ####[facility] MCHC mass conc (RBC) 32.1 g/dL Normal 32.0-36.0 [facility] Comment on above: Performed By: #### 5 010, 05069 ####[facility] [facility].[address] MCV 93.9 fL Normal 80.0-100.0 [facility] Comment on above: Performed By: #### 5 102, 49281 ####[facility] [facility].[address] METHOD Normal RBC Morphology Normal [facility] Comment on above: Performed By: #### 5 102, 38035 ####[facility] [facility].[address] MONOS 6.2 % Normal 2-8 [facility] Comment on above: Performed By: #### 5 010, 20295 ####[facility] [place] [address], [facility] Neutrophils/100 leukocytes 61.2 % Normal 50-70 [facility] Comment on above: Performed By: #### 5 0103, 87878 ####[facility] [place] [address], [facility] PLAT CNT 263 Thou/mm3 Normal 100-400 [facility] Comment on above: Performed By: #### 5 0103, 79095 ####[facility] [place] [address], [facility] WBC (Leukocytes) 7.7 Thou/mm3 Normal 4.0-10.0 [facility] Comment on above: Performed By: #### 5 0103, 73752 ####[facility] COMP METABOLIC PANELon 04-24 Alanine aminotransferase (ALT) 26 U/L Normal 7-52 [facility] Comment on above: Performed By: #### 3 0728, 84640, 53684, 40002 ####[facility] [place] [address], [facility] Albumin 4.4 g/dL Normal 3.5-5.7 [facility] Comment on above: Performed By: #### 3 0728, 79152, 77149, 26115 ####[facility] [place] [address], [facility] ALKALINE PHOSPH 69 IU/L Normal 34-104 [facility] Comment on above: Performed By: #### 3 0728, 71048, 94023, 03621 ####[facility] Aspartate aminotransferase (AST) 29 U/L Normal 13-39 [facility] Comment on above: Performed By: #### 3 0728, 52416, 12644, 70497 ####[facility] [place] [address], [facility] Bilirubin (total) 0.2 mg/dL Low 0.3-1.0 [facility] Comment on above: Performed By: #### 3 0728, 15371, 54618, 97591 ####[facility] [place] [address], [facility] Calcium 9.3 mg/dL Normal 8.6-10.3 [facility] Comment on above: Performed By: #### 3 0728, 68802, 36363, 07575 ####[facility] [place] [address], [place] Chloride 102 mmol/L Normal 98-107 [facility] Comment on above: Performed By: #### 3 0728, 58617, 74559, 83243 ####[facility] [place] [address], [place] CO2 17 mmol/L Low 21-31 [facility] Comment on above: Performed By: #### 3 0728, 74759, 32223, 06945 ####[facility] [place] [address], [facility] Creatinine 0.72 mg/dL Normal 0.60-1.20 [facility] Comment on above: Performed By: #### 3 0728, 80253, 84763, 90719 ####[facility] [place] [address], [facility] eGFR (black) mL/min/{1.73_m2} Normal >60 [facility] Comment on above: Performed By: #### 3 0728, 06444, 79812, 24070 ####[facility] [place] [address], [facility] eGFR (non-black) mL/min/{1.73_m2} Normal >60 [facility] Comment on above: Performed By: #### 3 0728, 33662, 04664, 73656 ####[facility] Glucose mass conc 90 mg/dL Normal 70-100 [facility] Comment on above: Performed By: #### 3 0728, 38221, 20194, 08599 ####[facility] Potassium molar conc 4.1 mmol/L Normal 3.5-5.1 [facility] Comment on above: Performed By: #### 3 0728, 02760, 01102, 50487 ####[facility] Protein 7.5 g/dL Normal 6.0-8.3 [facility] Comment on above: Performed By: #### 3 0728, 68242, 69723, 14853 ####[facility] Sodium 140 mmol/L Normal 136-145 [facility] Comment on above: Performed By: #### 3 0728, 33300, 97264, 31038 ####[facility] [facility].[address] Urea nitrogen 11 mg/dL Normal 7-25 [facility] Comment on above: Performed By: #### 3 0728, 86763, 69004, 70933 ####[facility] CPKon 04-24-2017 Creatine kinase (CK) 83 U/L Normal 30-223 [facility] Comment on above: Performed By: #### 3 0728, 91572, 04972, 76822 ####[facility] CYCLIC CITRULLINATED PEPTIDE [place] [id number] 04-24-2017 CYCLIC CIT PEP 3 Units Normal 0-19 [facility] Comment on above: Result Comment: INTE RPRETIVE [...] results should bemonitored and testing repeated.Performed by [employer],[address] [place], [place] [id number] [email or web address], Socrates Nuñez MD - Lab. Director RHEUMATOID FACTOR SERUMon RA <20 Normal 0-20 [facility] Comment on above: Performed By: #### 1 0204, 02451 ####[facility] SEDIMENTATION RATEon 017 SED RATE 25 mm/hr High 0-20 [facility] Comment on above: Performed By: #### 5 0103, 08275 ####[facility] [facility].[address] TSHon 04-24-2017 Thyroid stimulating hormone (TSH) 0.51 MICRO-IU/ML Normal 0.34-5.60 [facility] Comment on above: Performed By: #### 3 [id number] ####[facility] VITAMIN D 25-HYDROXYon 04-24 VITAMIN D 25-OH 44.7 ng/mL Normal 30.0-80.0 [facility] Comment on above: Result Comment: >80. 0 Toxicity possible Performed By: #### 3 [id number] ####[facility] Vital Signs Date Time Vital Sign Value Performing Clinician Facility 08-09-2024 15:33-0500 Body height 170.2 cm Pam Scotch PA-C Work Phone: [facility] 08-09-2024 15:33-0500 Body mass index (BMI) [Ratio] 34.14 kg/m2 Pam Scotch PA-C Work Phone: [facility] 08-09-2024 15:33-0500 Body weight 98.88 kg Pam Scotch PA-C Work Phone: [facility] 03-24-2024 00:37-0400 Diastolic blood pressure 71 mm[Hg] Peter Trzeciak DO Work Phone: [facility] 03-24-2024 00:37-0400 Heart rate 102 /min Peter Trzeciak DO Work Phone: [facility] 03-24-2024 00:37-0400 Respiratory rate 18 /min Peter Trzeciak DO Work Phone: [facility] 03-24-2024 00:37-0400 SaO2% (BldA) [Mass fraction] 96 % Peter Trzeciak DO Work Phone: [facility] 03-24-2024 00:37-0400 Systolic blood pressure 113 mm[Hg] Peter Trzeciak DO Work Phone: [facility] 03-23-2024 16:02-0400 Body height 170.2 cm Peter Trzeciak DO Work Phone: [facility] 03-23-2024 16:02-0400 Body mass index (BMI) [Ratio] 26.63 kg/m2 Peter Trzeciak DO Work Phone: [facility] 03-23-2024 16:02-0400 Body temperature 97.2 [degF] Peter Sue DO Work Phone: [facility] 03-23-2024 16:02-0400 Body weight 77.11 kg Peter Sue DO Work Phone: [facility] 01-29-2024 06:00-0400 Diastolic blood pressure 79 mm[Hg] [facility] Work Phone: [facility] 01-29-2024 06:00-0400 Heart rate 73 /min Services [facility] Work Phone: [facility] 01-29-2024 06:00-0400 Respiratory rate 20 /min Services [facility] Work Phone: [facility] 01-29-2024 06:00-0400 SaO2% (BldA) [Mass fraction] 100 % Services [facility] Work Phone: [facility] 01-29-2024 06:00-0400 Systolic blood pressure 155 mm[Hg] Services [facility] Work Phone: [facility] 01-29-2024 04:11-0400 Body height 170.18 cm Services [facility] Work Phone: [facility] 01-29-2024 04:11-0400 Body temperature 98 [degF] Services [facility] Work Phone: [facility] 01-29-2024 04:11-0400 Body weight 87.5 kg Services [facility] Work Phone: [facility] 12-22-2023 18:16-0400 Diastolic blood pressure 78 mm[Hg] Services [facility] Work Phone: [facility] 12-22-2023 18:16-0400 Heart rate 73 /min Services [facility] Work Phone: [facility] 12-22-2023 18:16-0400 Respiratory rate 16 /min [facility] Work Phone: [facility] 12-22-2023 18:16-0400 SaO2% (BldA) [Mass fraction] 97 % [facility] Work Phone: [facility] 12-22-2023 18:16-0400 Systolic blood pressure 163 mm[Hg] Services [facility] Work Phone: [facility] 12-22-2023 13:27-0400 Body height 170.18 cm Services [facility] Work Phone: [facility] 12-22-2023 13:27-0400 Body temperature 98.1 [degF] Services [facility] Work Phone: [facility] 12-22-2023 13:27-0400 Body weight 87.05 kg Services [facility] Work Phone: [facility] 11-14-2022 10:09-0400 Diastolic blood pressure 86 mm[Hg] [facility] Work Phone: [facility] 11-14-2022 10:09-0400 Heart rate 64 /min [facility] Work Phone: [facility] 11-14-2022 10:09-0400 Respiratory rate 20 /min [facility] Work Phone: [facility] 11-14-2022 10:09-0400 SaO2% (BldA) [Mass fraction] 97 % [facility] Work Phone: [facility] 11-14-2022 10:09-0400 Systolic blood pressure 149 mm[Hg] [facility] Work Phone: [facility] 11-14-2022 08:12-0400 Body height 170.18 cm [facility] Work Phone: [facility] 11-14-2022 08:12-0400 Body temperature 97.9 [degF] [facility] Work Phone: [facility] 11-14-2022 08:12-0400 Body weight 95.25 kg [facility] Work Phone: [facility] 07-19-2022 13:50-0500 Body height 170.2 cm Naa Ziganti PA-C Work Phone: [facility] 07-19-2022 13:50-0500 Body temperature 97.5 [degF] Naa Lukasganti PA-C Work Phone: [facility] 07-19-2022 13:50-0500 Body weight 86.18 kg Naa Ziganti PA-C Work Phone: [facility] 07-19-2022 13:50-0500 Diastolic blood pressure 77 mm[Hg] Naa Lukasganti PA-C Work Phone: [facility] 07-19-2022 13:50-0500 Heart rate 67 /min Naa Lukasganti PA-C Work Phone: [facility] 07-19-2022 13:50-0500 Systolic blood pressure 133 mm[Hg] Naa Ziganti PA-C Work Phone: [facility] 03-19-2022 10:30-0400 Body temperature 99.3 [degF] DO Dwight Irwin Work Phone: [facility] 03-19-2022 10:30-0400 Diastolic blood pressure 97 mm[Hg] DO Dwight Irwin Work Phone: [facility] 03-19-2022 10:30-0400 Heart rate 94 /min DO Dwight Irwin Work Phone: [facility] 03-19-2022 10:30-0400 Respiratory rate 18 /min DO Dwight Irwin Work Phone: [facility] 03-19-2022 10:30-0400 SaO2% (BldA) [Mass fraction] 100 % DO Dwight Irwin Work Phone: [facility] 09-20-2022 10:30-0400 Systolic blood pressure 155 mm[Hg] DO Dwight Irwin Work Phone: [facility] 12-22-2021 08:19-0400 Diastolic blood pressure 60 mm[Hg] DO Dwight Irwin Work Phone: [facility] 12-22-2021 08:19-0400 Heart rate 84 /min DO Dwight Irwin Work Phone: [facility] 12-22-2021 08:19-0400 Respiratory rate 18 /min DO Dwight Irwin Work Phone: [facility] 12-22-2021 08:19-0400 SaO2% (BldA) [Mass fraction] 98 % DO Dwight Irwin Work Phone: [facility] 12-22-2021 08:19-0400 Systolic blood pressure 110 mm[Hg] DO Dwight Irwin Work Phone: [facility] 12-22-2021 06:14-0400 Body height 170.18 cm DO Dwight Irwin Work Phone: [facility] 12-22-2021 06:14-0400 Body mass index (BMI) [Ratio] 33.8 kg/m2 DO Dwight Irwin Work Phone: [facility] 12-22-2021 06:14-0400 Body temperature 97.7 [degF] DO Dwight Irwin Work Phone: [facility] 12-22-2021 06:14-0400 Body weight 97.97 kg DO Dwight Irwin Work Phone: [facility] 08-21-2020 12:15-0500 BP Diastolic 76 mm[Hg] Services [facility] 08-21-2020 12:15-0500 BP Systolic 153 mm[Hg] Services [facility] 08-21-2020 12:15-0500 Pulse (Heart Rate) 102 /min Services [facility] 08-21-2020 12:15-0500 Pulse Oximetry 98 % Services [facility] 08-21-2020 12:15-0500 Respiratory Rate 17 /min Services [facility] 08-21-2020 08:50-0500 BMI (Body Mass Index) 36.1 kg/m2 Services [facility] 08-21-2020 08:50-0500 Body Temperature 98.1 [degF] Services [facility] 08-21-2020 08:50-0500 Body weight 104.7 kg Services [facility] 08-21-2020 08:50-0500 Height 170.18 cm Services [facility] 08-20-2020 12:00-0500 BP Diastolic 78 mm[Hg] Services [facility] 08-20-2020 12:00-0500 BP Systolic 164 mm[Hg] Services [facility] 08-20-2020 12:00-0500 Pulse (Heart Rate) 64 /min Services [facility] 08-20-2020 12:00-0500 Pulse Oximetry 97 % Services [facility] 08-20-2020 12:00-0500 Respiratory Rate 18 /min Services [facility] 08-20-2020 10:34-0500 BMI (Body Mass Index) 34.6 kg/m2 Services [facility] 08-20-2020 10:34-0500 Body Temperature 97.8 [degF] Services [facility] 08-20-2020 10:34-0500 Body weight 100.24 kg Services [facility] 08-20-2020 10:34-0500 Height 170.18 cm Services [facility] 08-16-2020 11:27-0500 Body weight 100.24 kg Services [facility] 08-16-2020 11:27-0500 Height 170.18 cm Services [facility] 08-16-2020 11:26-0500 BP Diastolic 104 mm[Hg] Services [facility] 08-16-2020 11:26-0500 BP Systolic 159 mm[Hg] Services [facility] 08-16-2020 11:26-0500 Pulse (Heart Rate) 86 /min Services [facility] 08-16-2020 11:26-0500 Pulse Oximetry 99 % Services [facility] 08-16-2020 11:26-0500 Respiratory Rate 16 /min Services [facility] 07-22-2020 14:33-0500 BMI (Body Mass Index) 36.5 kg/m2 Services [facility] 07-22-2020 14:33-0500 Body Temperature 97.9 [degF] Services [facility] 07-22-2020 14:33-0500 Body weight 105.7 kg Services [facility] 07-22-2020 14:33-0500 BP Diastolic 80 mm[Hg] Services [facility] 07-22-2020 14:33-0500 BP Systolic 153 mm[Hg] Services [facility] 07-22-2020 14:33-0500 Height 170.18 cm Services [facility] 07-22-2020 14:33-0500 Pulse (Heart Rate) 112 /min Services [facility] 07-22-2020 14:33-0500 Pulse Oximetry 100 % Services [facility] 07-22-2020 14:33-0500 Respiratory Rate 18 /min Services [facility] 06-07-2020 02:17-0500 BP Diastolic 75 mm[Hg] Services [facility] 06-07-2020 02:17-0500 BP Systolic 141 mm[Hg] Services [facility] 06-07-2020 02:17-0500 Pulse (Heart Rate) 90 /min Services [facility] 06-07-2020 02:17-0500 Pulse Oximetry 98 % Services [facility] 06-07-2020 02:17-0500 Respiratory Rate 18 /min Services [facility] 06-07-2020 00:41-0500 BMI (Body Mass Index) 35.6 kg/m2 Services [facility] 06-07-2020 00:41-0500 Body Temperature 98.8 [degF] Services [facility] 06-07-2020 00:41-0500 Body weight 103.3 kg Services [facility] 06-07-2020 00:41-0500 Height 170.18 cm Services [facility] Encounters Encounter Date Encounter Type Care Provider Facility Start: 08-13-2024 End: 08-13-2024 Telephone encounter Pam Felipe PARKER Work Phone: [facility] Start: 08-09-2024 End: 08-09-2024 Patient encounter procedure Pam Felipe PARKER Work Phone: Orthopaedics Comment on above: Primary osteoarthrit is of left knee (Primary Dx) Start: 08-09-2024 End: 08-09-2024 Subsequent hospital visit by physician Yahir Menendez 1 Work Phone: Radiology Comment on above: Primary osteoarthrit is of left knee [M17.12] Start: 08-09-2024 End: 08-13-2024 ambulatory KASSANDRA KLEIN Facility:[facility] Start: 06-28-2024 End: 06-28-2024 ambulatory TONY YAHIR [facility] Start: 06-28-2024 End: 06-28-2024 Subsequent hospital [...] 05-04-2024 Emergency department patient visit CHINTAN JACKMAN Facility:[facility] Start: 03-23-2024 End: 03-24-2024 Emergency department patient visit NO ASSIGNED PCP GENERIC PROVIDER [facility] Work Phone: Comment on above: COVID-19 (Primary Dx ); Pneumonia due to infectious organism, unspecified laterality, unspecified part of lung Start: 03-19-2024 Emergency department patient visit OMARJAYDEN Mary JACKMAN Facility:[facility] Start: 01-29-2024 End: 01-29-2024 Emergency department patient visit Services [facility] Work Phone: [facility] Work Phone: Start: 12-22-2023 End: 12-22-2023 Emergency department patient visit Services [facility] Work Phone: [facility] Work Phone: Start: 12-16-2023 End: 12-16-2023 ambulatory Kassandra Klein [facility] Work Phone: Start: 12-16-2023 End: 12-16-2023 Departed Referred [employer] SAL[employer] CONSULTANT-Enrique Klein Work Phone: [facility] Start: 09-11-2023 End: 09-11-2023 Patient encounter procedure Services [facility] Work Phone: [facility] [place] Work Phone: Start: 09-11-2023 End: 09-11-2023 ambulatory Services [facility] Work Phone: [facility] Work Phone: Start: 04-17-2023 End: 04-17-2023 ambulatory Services [facility] Work Phone: [facility] Work Phone: Start: 04-17-2023 End: 04-17-2023 Departed Referred Services [facility] Work Phone: [facility] Start: 04-16-2023 End: 04-16-2023 Patient encounter procedure Services [facility] Work Phone: [facility] [place] Work Phone: Start: 04-16-2023 End: 04-16-2023 ambulatory [facility] Work Phone: [facility] Work Phone: Start: 03-20-2023 End: 03-20-2023 ambulatory [facility] Work Phone: [facility] Work Phone: Start: 03-20-2023 End: 03-20-2023 Departed Referred Services [facility] Work Phone: [facility] Start: 11-28-2022 End: 11-28-2022 ambulatory Services [facility] Work Phone: [facility] Work Phone: Start: 11-28-2022 End: 11-28-2022 Departed Referred Services [facility] Work Phone: [facility] Start: 11-14-2022 End: 11-14-2022 Admission to same day surgery center Services [facility] Work Phone: [facility] Work Phone: Start: 09-12-2022 End: 09-12-2022 ambulatory [facility] Work Phone: [facility] Work Phone: Start: 09-12-2022 End: 09-12-2022 Departed Referred Services [facility] Work Phone: [facility] Start: 08-13-2022 End: 08-13-2022 ambulatory [facility] Work Phone: [facility] Work Phone: Start: 08-13-2022 End: 08-13-2022 Departed Referred Services [facility] Work Phone: [facility] Start: 08-07-2022 End: 08-07-2022 ambulatory [facility] Work Phone: [facility] Work Phone: Start: 08-07-2022 End: 08-07-2022 Patient encounter procedure Services [facility] Work Phone: [facility] [place] Work Phone: Start: 07-23-2022 Orders Only Naa Bah PA-C Work Phone: [facility] [place] Comment on above: 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); Sarcoidosis Start: 07-19-2022 End: 07-19-2022 Patient encounter procedure Naa Bah PA-C Work Phone: [facility] [place] Comment on above: Sarcoidosis (Primary Dx); Polyarthralgia; Abnormal laboratory test Start: 07-16-2022 End: 07-16-2022 ambulatory Services [facility] Work Phone: [facility] Work Phone: Start: 07-16-2022 End: 07-16-2022 Departed Referred Services [facility] Work Phone: [facility] Start: 03-19-2022 End: 03-19-2022 Emergency department patient visit DO Dwight Irwin Work Phone: [facility] Start: 03-19-2022 End: 03-19-2022 Patient encounter procedure DO Dwight Irwin Work Phone: [facility]Electro[facility] Start: 12-22-2021 End: 12-22-2021 Emergency department patient visit DO Dwight Irwin Work Phone: [facility] Start: 07-05-2021 ambulatory [facility] Facili ty:H1 Start: 03-09-2021 End: 03-09-2021 ambulatory [facility] Facility:H1 Start: 03-03-2021 ambulatory [facility] Facili ty:H1 Start: 02-28-2021 End: 03-01-2021 ambulatory [facility] Facility:H1 Start: 08-21-2020 End: 08-21-2020 Emergency department patient visit Services [facility] Start: 08-20-2020 End: 08-20-2020 Emergency department patient visit Services [facility] Start: 08-16-2020 End: 08-16-2020 Patient encounter procedure [facility] Start: 08-02-2020 End: 08-02-2020 [facility] Start: 07-22-2020 End: 07-22-2020 Emergency department patient visit Services [facility] Start: 06-08-2020 End: 06-08-2020 Departed Referred Services [facility] Services Start: 06-07-2020 End: 06-07-2020 [facility] department [facility] Start: 05-23-2020 End: 05-23-2020 Departed Referred Services [facility] Start: 04-24-2017 End: 04-25-2017 Ambulatory REFERRED SELF Facility:[facility] Procedures Date Procedure Procedure Detail Performing Clinician Start: 08-09-2024 Radiologic exam knee complete 4/more views Pam Wang PA-C Work Phone: Start: 06-28-2024 Hemoglobin glycosylated a1c Tony Ashley APRN - [employer] Work Phone: Start: 05-10-2024 Arthrocentesis aspir&/inj major jt/bursa w/o us Pamnir Maxch PA-C Work Phone: Start: 05-10-2024 Radiologic exam knee complete 4/more views Pam Maxch PA-C Work Phone: Start: 03-23-2024 Ct abdomen [...] by GINETTE with probe detection Peter Sue Jiahe Work Phone: Start: 03-23-2024 SARS-CoV-2 (COVID-19) RNA [Presence] in Respiratory specimen by GINETTE with probe detection Peter Sue Jiahe Work Phone: Start: 03-23-2024 Troponin I.cardiac panel - Serum or Plasma by High sensitivity method Peter Sue Jiahe Work Phone: Start: 03-23-2024 Radiologic exam chest 2 views Peter Sue Jiahe Work Phone: Start: 12-22-2023 Computed tomography of abdomen and pelvis with contrast Services [employer] Phone: Start: 12-22-2023 Plain chest X-ray Services [employer] Phone: Start: 09-11-2023 Computed tomography of abdomen and pelvis with contrast Services [employer] Phone: Start: 04-17-2023 Respiratory Panel (PCR) Services [employer] Phone: Start: 04-16-2023 X-ray of left ankle Services [employer] Phone: Start: 11-14-2022 Screening colonoscopy Services [employer] Phone: Start: 08-13-2022 Respiratory Panel (PCR) Services [employer] Phone: Start: 08-07-2022 X-ray of lumbar spine, four or more views Services [employer] Phone: Start: 03-19-2022 X-ray of left ankle DO [employer] Work Phone: Start: 03-19-2022 Plain chest X-ray DO [employer] Work Phone: Start: 12-22-2021 Duplex scan of lower limb veins DO [employer] Work Phone: Start: 12-22-2021 Plain chest X-ray DO Dwight Irwin Work Phone: Start: 08-21-2020 Bacteria identified Cx Nom (U) Services [facility] Start: 08-20-2020 Plain chest X-ray Services [facility] Start: 08-16-2020 MRI of head Services [facility] Start: 08-02-2020 Radiography of cervical spine Services [facility] Start: 08-02-2020 X-ray of lumbar spine, two or three views Services [facility] Start: 08-02-2020 XR hip LT 2V Services [facility] Start: 06-07-2020 Plain chest X-ray Services [facility] H/O: surgery S/P dilatation o f esophageal stricture DO Dwight Irwin Work Phone: Laboratory test resu lt abnormal Abnormal laboratory test Naa Bah PA-C Work Phone: SARS Antigen (LFIA) DO Dwight Irwin Work Phone: Plan of Treatment Date Care Activity Detail Author Start: 05-04-2027 Diabetes Screening Diabetes Screenin g [facility] Start: 07-19-2025 DIABETES SCREEN DIABETES SCREEN [facility] Start: 12-27-2024 Hemoglobin A1c measurement HbA1C [facility] Start: 06-01-2024 End: 06-01-2024 Patient encounter procedure 06/01/2024 1:00 PM EST OT/PT/Speech Visit [facility] [id number] [place] [address] [place] [id number] [place] [address] Primary osteoarthritis of left knee [M17.12] [facility] Comment on above: Primary osteoarthrit is of left knee [M17.12] Start: 02-29-2024 COVID-19 Vaccine ( season) COVID-19 Vaccine ( season) [facility] Start: 02-29-2024 Covid-19 Vaccine () Covid-19 Vaccine ( season) [facility] Start: 02-29-2024 Influenza vaccination Influenza Vacc ine (#1) [facility] Start: 01-29-2024 Computed tomography of abdomen and pelvis with contrast CT abdomen pelvis w con [facility] Start: 01-29-2024 CT Abdomen and Pelvi s W contrast IV [facility] Start: 11-14-2022 [facility] Start: 07-19-2022 End: 09-18-2022 Protein/Creatinine [Mass Ratio] in Urine PROTEIN CREATININE RATIO Lab Routine Sarcoidosis Polyarthralgia Abnormal laboratory test Expected: 07/19/2022, Expires: 09/18/2022 [facility] Work Phone: Comment on above: Expected: 07/19/2022 , Expires: 09/18/2022 Start: 07-19-2022 End: 09-18-2022 Urinalysis complete panel - Urine URINALYSIS WITH MICROSCOPIC, REFLEX CULTURE Lab Routine Sarcoidosis Polyarthralgia Abnormal laboratory test Expected: 07/19/2022, Expires: 09/18/2022 [facility] Work Phone: Comment on above: Expected: 07/19/2022 , Expires: 09/18/2022 Start: 06-30-2022 DEPRESSION ASSESSMENT DEPRESSION ASS ESSMENT [facility] Start: 02-28-2022 Influenza vaccination INFLUENZA (#1) [facility] Start: 04-10-2021 COVID-19 VACCINE (3 - Booster for Moderna series) COVID-19 VACCINE (3 - Booster for Moderna series) [facility] Start: 2015 SHINGRIX VACCINE (1 of 2) SHINGRIX VACCINE (1 of 2) [facility] Start: 2015 Zoster Vaccines (1 of 2) Zoster Vacc pricila (1 of 2) [facility] Start: 2010 COLOGUARD (FIT-DNA) COLOGUARD (FIT-D NA) [facility] Start: 2010 Colonoscopy COLONOSCOPY [facility] Start: 2010 COLORECTAL CANCER SCREENING COLORECTAL CANCER SCREENING [facility] Start: [address] COLONOGRAPHY [facility] Start: 2010 FECAL OCCULT BLOOD FECAL OCCULT BLOO D [facility] Start: 2010 Lipid panel Lipid Screening [facility] Start: 2010 LIPID SCREEN LIPID SCREEN [facility] Start: 2010 Screening for malign ant neoplasm of colon [facility] Start: 2010 SIGMOIDOSCOPY SIGMOIDOSCOPY [facility] Start: 2005 Mammography MAMMOGRAM [facility] Start: 2005 Screening for malign ant neoplasm of breast Mammogram Screening [facility] Start: 1995 HPV TESTING HPV TESTING [facility] Start: 1987 DTaP/Tdap/Td Vaccine s (1 - Tdap) DTaP/Tdap/Td Vaccines (1 - Tdap) [facility] Start: 1986 PAP TESTING PAP TESTING [facility] Start: 1986 Screening for malign ant neoplasm of cervix [facility] Start: 1984 Hepatitis B Vaccines (1 of 3 - 19+ 3-dose series) Hepatitis B Vaccines (1 of 3 - 19+ 3-dose series) [facility] Start: 1984 Pneumococcal Vaccine : 50+ (1 of 2 - PCV) Pneumococcal Vaccine: 50+ (1 of 2 - PCV) [facility] Start: 1984 Urine microalbumin profile [facility] Start: 1983 Annual PCP Team Manager Mail deep Disease Visit Annual PCP Team Chronic Disease Visit [facility] Start: 1983 Anxiety Screening Anxiety Screening [facility] Start: 1983 Depression Screening Depression Scre ening [facility] Start: 1983 Diabetes mellitus screening Diabetes Screening [facility] Start: 1983 Hepatitis B surface antibody level LDL Cholesterol [facility] Start: 1983 Hepatitis C screening Hepatitis C Sc reening [facility] Start: 1983 HIV SCREENING HIV SCREENING [facility] Start: 1983 HIV screening HIV Screening [facility] Start: 1975 Diabetic foot examination Diabetic Foot Exam [facility] Start: 1975 Glaucoma screening Dilated Retinal E xam [facility] Start: 1975 Hepatitis B screening Urine Al bumin:Creatinine Ratio [facility] Start: 1966 MMR Vaccines (1 of 1 - Standard series) MMR Vaccines (1 of 1 - Standard series) [facility] Start: 1965 HEPATITIS B (1 of 3 - 3-dose series) HEPATITIS B (1 of 3 - 3-dose series) [facility] Start: 1965 HIV screening HIV Screening [facility] Start: 1965 Lipid panel Lipid Panel [facility] Start: 1965 Screening for malign ant neoplasm of colon [facility] Start: 1965 Yearly Adult Physical Yearly Adult P hysical [facility] Atopobium vaginae DN A [Presence] in Vaginal fluid by GINETTE with probe detection [facility] Bacteria identified in Blood by Culture Blood Culture Microbiology STAT 03/23/2024 6:50 PM EDT [facility] Work Phone: Bacterial vaginosis associated bacterium 2 DNA [Presence] in Vaginal fluid by GINETTE with probe detection [facility] Chlamydia trachomati s rRNA [Presence] in Cervix by GINETTE with probe detection [facility] End: 03-23-2024 ECG 12 lead [facility] Service Area Work Phone: Comment on above: Once for 1 Occurrenc es starting 03/23/2024 until 03/23/2024 Glucose measurement estimated from glycated hemoglobin [facility] Hemoglobin A1c/Hemoglobin.total in Blood [facility] Human papilloma viru s 16+18+31+33+35+39+45+51+ 52+56+58+59+66+68 DNA [Presence] in Cervix by Probe with signal amplification [facility] Human papilloma viru s 16+18+31+33+35+39+45+51+ 52+56+58+59+68 DNA [Presence] in Cervix by Probe with signal amplification [facility] Megasphaera sp type 1 DNA [Presence] in Vaginal fluid by GINETTE with probe detection [facility] Neisseria gonorrhoea e rRNA [Presence] in Cervix by GINETTE with probe detection [facility] Patient Education [facility] Patient referral [facility] End: 03-23-2024 Pulse oximetry, continuous Pulse oximetry, continuous Respiratory Care STAT Continuous until discontinued starting 03/23/2024 [facility] Work Phone: Comment on above: Continuous until dis continued starting 03/23/2024 Rheumatoid factor [Units/volume] in Serum or Plasma [facility] Immunizations Immunization Date Immunization Notes Care Provider Eugenio landa 02-28-2019 influenza virus vaccine, unspecified formulation Peter Sue DO Work Phone: [facility] Work Phone: 05-01-2018 influenza, injectabl e, quadrivalent, preservative free Services [facility] 05-01-2018 influenza virus vaccine, unspecified formulation Kim Owens RT(R) [facility] Payers Date Payer Category Payer Self-pay [id number] 2022 Medicaid [id number] 2020 Medicaid [id number] 1965 Unknown [id number] 2.16.84 [id number] 1965 Unknown [id number] 2.16.84 [id number] 1965 Unknown [id number] 2.16.84 [id number] 1965 Unknown [id number] 2.16.84 [id number] 1965 Unknown [id number] 1965 Unknown [id number] 2.16.8 [id number] 1959 Unknown [id number] Medicaid [id number] Medicaid [place] [id number] [facility] [id number] Unknown Insurance No Card [id number] Unknown [id number] 2.16.8 [id number] Unknown [id number] 2.16.8 [id number] Unknown [id number] 2.16.8 40.1.268881.3.579.2.531 Unknown [id number] 2.16.8 [id number] Unknown [id number] 2.16.8 [id number] Unknown [id number] 2.16.8 [id number] Unknown [id number] 2.16.8 [id number] Social History Date Type Detail Facility Start: 05-18-2013 End: 08-21-2020 Tobacco smoking status PRIS Ex-smoker (finding) [facility] Work Phone: Start: 1965 Sex Assigned At Female F [facility] Start: 03-19-2022 End: 03-19-2022 Tobacco smoking status [facility] Never smoked tobacco (finding) [facility] Start: 12-22-2023 End: 01-29-2024 History of tobacco use Current smoker [facility] Work Phone: Start: 05-18-2013 Tobacco use and exposure Smokeless tobacco non-user [facility] Work Phone: Start: 07-19-2022 Alcohol intake Not Asked Kajal gomez [facility] Start: 1965 Sex Assigned At Not on file [facility] Start: 07-19-2022 End: 06-01-2024 History of tobacco use [facility] Start: 07-19-2022 End: 06-01-2024 History of Social function [facility] Adult Depression Screening Assessment 3 [facility] (I/We) worried whether (my/our) food would run out before (I/we) got money to buy more. Never true [facility] Tobacco smoking status NHIS Tobacco smoking consumption unknown [facility] Work Phone: Start: 03-13-2024 End: 03-23-2024 Exposure to SARS-CoV-2 (event) Not sure [facility] Work Phone: NEGATED: Highlighted row [facility] Goals Date Patient Goal Desired Activity /State Clinical Notes 03-09-2021 to 08-13-2024 Telephone Encounter - Ryanne Caceres MA - 08/13/2024 3:42 PM ESTTelephone Encounter - Ryanne Caceres MA - 08/13/2024 3:42 PM ESTTelephone Encounter - Ana Laura Vera - 08/13/2024 12:44 PM EST Note Date & Type Note Facility 08-13-2024 Telephone encounter Note Called patient and explained that we would call her if cancellation there is no cancellation at this time but if someone cancels spencer call her and continue with the tylenol Ryanne Caceres MA [facility] 08-13-2024 Miscellaneous Notes Called patient and explained that we would call her if cancellation there is no cancellation at this time but if someone cancels spencer call her and continue with the tylenol Ryanne Caceres MA London Velasquez is calling Pam Wang PA-C today with concern regarding left knee surgery. She states she was to be scheduled in September but she is in such pain wants to know if it can be any sooner. Call her please. No chief complaint on file. Patient has been identified by name and birthdate. Duration of symptoms: Person calling: self Call patient at: at home [phone] (home) [phone] (cell) Was an appointment scheduled: No Closing statement: Symptom Call: Thank you for calling [facility], your call is very important. A nurse will call in approximately 2-4 hours during business hours. If this is an emergency, please contact 911Shira Ana Laura Vera documented in this encounter [facility] 08-13-2024 Telephone encounter Note London Velasquez is calling Pam Wang PA-C today with concern regarding left knee surgery. She states she was to be scheduled in September but she is in such pain wants to know if it can be any sooner. Call her please. No chief complaint on file. Patient has been identified by name and birthdate. Duration of symptoms: Person calling: self Call patient at: at home [phone] (home) [phone] (cell) Was an appointment scheduled: No Closing statement: Symptom Call: Thank you for calling [facility], your call is very important. A nurse will call in approximately 2-4 hours during business hours. If this is an emergency, please contact 911. Ana Laura Vera [facility] 08-09-2024 History of Presen t illness Narrative This document has been created with the use of voice recognition technology. It may contain inaccuracies: misspellings, inaccurate syntax or word sense that escaped review. Chief complaint: recheck of her left knee pain HISTORY: London is a 59 year old female. Patient comes in today for follow up of her left knee. Patient has a past medical history, medications and allergies were reviewed. She reports that she had only about 1 week of relief after the cortisone injection last visit in April. She has had several episodes since then of significant pain and swelling which come and go but in the last week it has been quite severe and constant. She states she has pain now even at rest as well as with any walking or activity. Points across the whole knee. Pain level is a 10/10. Using Tylenol and elevating the knee. Denies any new injury or aggravating incident. Denies any hip pain complaints. Has no symptoms on the right knee. No other musculoskeletal complaints ROS : REVIEW OF SYMPTOMS: Constitutional: patient denies any recent fever or significant change in weight Gastrointestinal: patient denies any current abdominal discomfort and patient notes history to tolerance of NSAIDs Musculoskeletal: as noted in the HPI Neurologic: as noted in the HPI SOCIAL HISTORY: Tobacco Use: Quit PAST MEDICAL HISTORY Diagnosis Date Depression Diabetes (HCC) Hypertension Sarcoidosis PAST SURGICAL HISTORY Procedure Laterality Date TONSILLECTOMY HX Medications reviewed. ALLERGIES Allergen Reactions Tramadol Other: See Comments Social History Tobacco Use Smoking status: Former Smokeless tobacco: Never EXAMINATION: GENERAL: Appears healthy, well-nourished, no deformities. ORIENTATION: Alert and oriented to person place and time HABITUS: Normal GAIT: Ambulating with a significant antalgic gait on the left On physical exam of the left knee today, she has 1+ effusion of the knee. No swelling distally. Calf is soft and nontender. Negative Homans. She has significant tenderness along the medial joint line and moderate tenderness about the patella and lateral joint line. She has a correctable varus deformity. No other instability. Neurovascularly is intact. Good hip motion without irritability. Right knee exam is benign. RADIOGRAPHS: Personally reviewed by myself demonstrating complete collapse of the medial compartment of the left knee on AP weightbearing and flexion weightbearing views. IMPRESSION: Encounter Diagnosis ICD-10-CM 1. Primary osteoarthritis of left knee M17.12 XR KNEE GENERAL 4V AP BOTH/PA BOTH/LAT/MERC LEFT XR KNEE SPECIFY 1V LEFT Plan: We discussed that she has advanced degenerative arthritis of her left knee and has not obtained any significant lasting relief with conservative treatment such as Tylenol, lidocaine patch, multiple cortisone injections and bracing. Suggest that we need to consider knee replacement surgery and she wishes to do so as she is quite miserable. Will arrange discussion with Dr. Menendez to begin planning. She agrees with this plan. Pam Wang PA-C August 09, 2024 5:45 PM Fitted patient with a large Econo Hinged Knee Brace for the left knee. Instructions were given on application/adjustments. Will f/u as scheduled/prn. PAULETTE Chamorro documented in this encounter [facility] 08-09-2024 Note HNO ID: [id number] Author: PAM WANG PA-C Service: ? Author Type: Physician Smoked Meat Preparer Type: Progress Notes Filed: 08/09/2024 17:56 Note Text: This document has been created with the use of voice recognition technology. It may contain inaccuracies: misspellings, inaccurate syntax or word sense that escaped review. Chief complaint: recheck of her left knee pain HISTORY: London is a 59 year old female. Patient comes in today for follow up of her left knee. Patient has a past medical history, medications and allergies were reviewed. She reports that she had only about 1 week of relief after the cortisone injection last visit in April. She has had several episodes since then of significant pain and swelling which come and go but in the last week it has been quite severe and constant. She states she has pain now even at rest as well as with any walking or activity. Points across the whole knee. Pain level is a 10/10. Using Tylenol and elevating the knee. Denies any new injury or aggravating incident. Denies any hip pain complaints. Has no symptoms on the right knee. No other musculoskeletal complaints ROS : REVIEW OF SYMPTOMS: Constitutional: patient denies any recent fever or significant change in weight Gastrointestinal: patient denies any current abdominal discomfort and patient notes history to tolerance of NSAIDs Musculoskeletal: as noted in the HPI Neurologic: as noted in the HPI SOCIAL HISTORY: Tobacco Use: Quit PAST MEDICAL HISTORY Diagnosis Date Depression Diabetes (HCC) Hypertension Sarcoidosis PAST SURGICAL HISTORY Procedure Laterality Date TONSILLECTOMY HX Medications reviewed. ALLERGIES Allergen Reactions Tramadol Other: See Comments Social History Tobacco Use Smoking status: Former Smokeless tobacco: Never EXAMINATION: GENERAL: Appears healthy, well-nourished, no deformities. ORIENTATION: Alert and oriented to person place and time HABITUS: Normal GAIT: Ambulating with a significant antalgic gait on the left On physical exam of the left knee today, she has 1+ effusion of the knee. No swelling distally. Calf is soft and nontender. Negative Homans. She has significant tenderness along the medial joint line and moderate tenderness about the patella and lateral joint line. She has a correctable varus deformity. No other instability. Neurovascularly is intact. Good hip motion without irritability. Right knee exam is benign. RADIOGRAPHS: Personally reviewed by myself demonstrating complete collapse of the medial compartment of the left knee on AP weightbearing and flexion weightbearing views. IMPRESSION: Encounter Diagnosis ICD-10-CM 1. Primary osteoarthritis of left knee M17.12 XR KNEE GENERAL 4V AP BOTH/PA BOTH/LAT/MERC LEFT XR KNEE SPECIFY 1V LEFT Plan: We discussed that she has advanced degenerative arthritis of her left knee and has not obtained any significant lasting relief with conservative treatment such as Tylenol, lidocaine patch, multiple cortisone injections and bracing. Suggest that we need to consider knee replacement surgery and she wishes to do so as she is quite miserable. Will arrange discussion with Dr. Menendez to begin planning. She agrees with this plan. Pam Wang PA-C August 09, 2024 5:45 PM [facility] 08-09-2024 Note HNO ID: [id number] Author: MARYAM SUH [facility] Cricket Service: ? Author Type: Tower Switch Operator Type: Progress Notes Filed: 08/09/2024 17:56 Note Text: Fitted patient with a large Econo Hinged Knee Brace for the left knee. Instructions were given on application/adjustments. Will f/u as scheduled/prn. Maryam Suh, [facility] 08-09-2024 Note HNO ID: [id number] Author: FREDDIE CASTILLO RT(R) Service: ? Author Type: Technologist Type: Progress Notes Filed: 08/09/2024 15:44 Note Text: Radiology Service Progress Note PATIENT NAME: London Velasquez DATE OF SERVICE: August 09, 2024 TIME: 3:44 PM PATIENT IDENTITY VERIFICATION COMPLETED USING TWO (2) IDENTIFIERS: Name and Date of confirmed by patient verbally. FALL SCREENING: Has the patient had 2 falls in the last year or 1 fall with injury or currently using an Ambulatory Assistive Device (Walker, Cane, Wheelchair, Crutches, etc.)? No PATIENT GENDER DATA: Assigned female at . status: : No status: NO. PATIENT RELEVANT IMPLANT DATA REVIEWED: Not Applicable PATIENT PRESENTS WITH AN IMPLANTABLE OR ATTACHED CARTON FORMING MACHINE HELPER: No RADIOLOGY DEPARTMENT: General X-ray: Exam(s) Completed: Lower Extremity X-Ray(s): Knee, AP / Lat / Tunne / Merchant Left and Wt. Bearing PERIPHERAL IV DATA: Not applicable SIGNED BY: RT Akshat(R) August 09, 2024 3:44 PM [facility] 05-10-2024 Note HNO ID: [id number] Author: MARYAM SUH Cast Tech Service: ? Author Type: Tower Switch Operator Type: Progress Notes Filed: 05/10/2024 17:23 Note Text: Fitted patient with medium Medial/Lateral OA Reaction brace for the left knee. Instructions were given on application/adjustments. Will f/u as scheduled/prn. PAULETTE Chamorro [facility] 05-10-2024 History of Presen t illness Narrative Fitted patient with medium Medial/Lateral OA Reaction brace for the left knee. Instructions were given on application/adjustments. Will f/u as scheduled/prn. PAULETTE Chamorro Associated Order(s): Large Joint Arthro/Inj: L knee joint Post-Procedure Diagnose(s): Primary osteoarthritis of left knee; Effusion, left knee SERVICE DATE: May 10, 2024 PCP: Kassandra Klein CNP, BRIDAL SALES CONSULTANT Consult requested by emergency department for an [...] narrowing on flexion weightbearing view down to dalb-ba-yela medially. Good maintenance of joint space laterally. Level patella tracking and minimal patellofemoral degenerative changes noted on skyline view. Good maintenance of joint space of the right knee. No other osseous abnormalities. Assessment/Plan ASSESSMENT Diagnosis (M17.12) Primary osteoarthritis of left knee (primary encounter diagnosis) Plan: OA BRACE - RAMP SERVICE EMPLOYEE - L1845, CONSULT TO PHYSICAL THERAPY, Large [...] Arthro/Inj: L knee joint OA BRACE - RAMP SERVICE EMPLOYEE - L1845 XR KNEE GENERAL 4V AP [...] Will then fit her with a medial drug enforcement agent brace for stability and get her into some physical therapy to address the quadriceps deconditioning. Follow-up in 6 weeks for recheck. She agrees with this plan. We discussed the use of ice for postinjection pain. Large Joint Arthro/Inj: L knee joint Informed Consent Consent Obtained: Verbal [place] Protocol A moment to CARE was completed. [...] equipment or retained foreign bodies applicable. Third democrat verified by Tyrese De La Cruz MA. FOLLOW-UP: Return in 6 weeks (on 06/21/2024), or if symptoms worsen or fail to improve. SIGNATURE: Pam Wang PA-C PATIENT NAME: London Velasquez DATE: May 10, 2024 TIME: 9:23 AM documented in this encounter [facility] 05-10-2024 Instructions Pam Wang PA-C - [...] you are doing documented in this encounter [facility] 05-10-2024 Note HNO ID: [id number] Author: SCOTCH, PAM, PA-C Service: ? Author Type: Physician Smoked Meat Preparer Type: Progress Notes Filed: 05/10/2024 17:23 Note Text: SERVICE DATE: May 10, 2024 PCP: Kassandra Klein CNP, BRIDAL SALES CONSULTANT Consult requested by emergency department for an [...] experiencing tenderness in (more content not included)... [facility] 05-10-2024 Note HNO ID: [id number] Author: KIM OWENS RT(R) Service: ? Author [...] PATIENT PRESENTS WITH AN IMPLANTABLE OR ATTACHED CARTON FORMING MACHINE HELPER: No RADIOLOGY DEPARTMENT: General X-ray: Exam(s) Completed: Lower Extremity X-Ray(s): Knee, AP / Lat / Tunne / Merchant Left PERIPHERAL IV DATA: Not applicable SIGNED BY: RT Jesus(R) May 10, 2024 8:28 AM [facility] 05-10-2024 History of Presen t illness Narrative Radiology Service Progress Note PATIENT [...] PATIENT PRESENTS WITH AN IMPLANTABLE OR ATTACHED CARTON FORMING MACHINE HELPER: No RADIOLOGY DEPARTMENT: General X-ray: Exam(s) Completed: Lower Extremity X-Ray(s): Knee, AP / Lat / Tunne / Merchant Left PERIPHERAL IV DATA: Not applicable SIGNED BY: RT Jesus(R) May 10, 2024 8:28 AM documented in this encounter [facility] 03-23-2024 Hospital Discharg e instructions Harry Welch MD - 03/23/2024 11:05 [...] sent through Care Everywhere.Community-acquired pneumonia in adults ([place])documented in this encounter [facility] Work Phone: 03-23-2024 Emergency department Note Patient [...] dictation software, please excuse any errors in grades 7 8 tutor. Harry Welch MD 03/23/242308 documented in this encounter [facility] Work Phone: 03-23-2024 Physician Emergency department Note [...] dictation software, please excuse any errors in grades 7 8 tutor. Harry Welch MD 03/23/242308 [facility] Work Phone: 03-19-2024 Note SARS-COV-2 (AGENT OF COVID-19) RNA: Not detected INFLUENZA A RNA: Not detected INFLUENZA B RNA: Not detected RESPIRATORY SYNCYTIAL VIRUS (RSV) RNA: Not detected [facility] Comment on above: Performed By: #### 9 [id number] #### [facility] CLIA [id number] STATES OF [facility] 07-19-2022 Instructions Naa Bah PA-C - 07/19/2022 [...] for further management. documented in this encounter [facility] 07-19-2022 History of Presen t illness Narrative Images from the original note were not included. Rheumatology Outpatient Clinic Date of Service: 07/19/2022 Patient: London Velasquez Medical Record: [id number] Primary Care Physician: Chintan Jackman MD Last Rheumatology visit: None at the [facility] Referring Provider: SELF History of Present [...] of joint pain. Patient was seen at [facility] back in 2019 where she had reported she had sarcoidosis since 2015. It was recommended she establish with the sarcoid clinic. Patient was lost to follow up. Per care everywhere, it appears patient was obtaining care for sarcoidosis with outside provider. Patient reports she followed with pai gow dealer Dr. Mendoza but no longer as she moved locations. Patient presents today reporting a supposed diagnosis of RA after lab work drawn by PCP (Kassandra Klein, TAYO). She reports she saw a local switchboard manager who prescribed her meloxicam. Patient expresses [...] OOARS, PCP prescribed her 5 days of [place] 12/20/21 and 10 day supply of Tylenol [...] ALEXY BY EIA <1.5 OD Ratio 0.3 COLD REDUCTION ROLLER ANTIBODY <1.0 AI <0.2 SSA ANTIBODY <1.0 AI <0.2 SSB ANTIBODY <1.0 AI <0.2 EVELYN-1 ANTIBODY, IGG <1.0 AI <0.2 RIBOSOMAL COLD REDUCTION ROLLER <1.0 AI <0.2 SM ANTIBODY <1.0 AI [...] IMPRESSION: No radiographic findings of inflammatory arthropathy. Information Analyst: RONA ... Last MRI Hand - Impression [...] (Final result) Impression: IMPRESSION: Mild degenerative changes. Information Analyst: RONA Transcribe Date/Time: Jul 19 2022 5:10P... [...] of joint pain. Patient was seen at [facility] back in 2019 where she had reported she had sarcoidosis since 2015. It was recommended she establish with the sarcoid clinic. Patient was lost to follow up. Per care everywhere, it appears patient was obtaining care for sarcoidosis with outside provider. Patient reports she followed with pai gow dealer Dr. Mendoza but no longer as she moved locations. Patient presents today reporting a diagnosis of RA after lab work drawn by PCP (Kassandra Klein, SE[employer] CORN PRODUCTION MANAGER). She reports she saw a local switchboard manager who prescribed her meloxicam. Patient presents [...] LIMITED 2V AP/TRUE AP LEFT XR SHOULDER [id number] AP/TRUE AP RIGHT XR HAND GENERAL 3V [...] which included preparing to see the patient, [id number] patient care, completing clinical documentation, obtaining and/or reviewing separately obtained history, performing a medically appropriate examination, counseling and educating the patient/family/caregiver, and ordering medications, tests, or procedures. Naa Bah PA-C [facility] Date: July 19, 2022 Time: 10:00 AM documented in this encounter [facility] 08-19-2021 Note Chief Complaint consultation for bleeding hemorrhoid [facility] Staff 56 year old female presents on consultation from Kassandra Klein BRIDAL SALES CONSULTANT for bleeding hemorrhoids x several months. Reports [...] patient with h/o partial internal sphincterotomy in 2015 and 2016 for fissures, persistent pain; last colonoscopy 08/2014 with hyperplastic polyp; had exam under anesthesia in 2018 for pain, wnl, referred to [facility] colorectal surgery; patient reports pain improved; has [...] rectum) see # 1; recommend f/u at [facility] colorectal surgery as previously recommended by Dr Melendez. Follow-up No qualifying data available Problem List/Past Medical History Ongoing Anxiety Arthritis of spine Bipolar disorder Bleeding external hemorrhoids BMI 31.0-31.9,adult Cervical disc disease Chronic pain syndrome Tj's disease Depression Diabetes Esophageal spasm Fibromyalgia Glaucoma [...] rectal cream, 1 (more content not included)... 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 Sarcoidosis [facility] Diagnosis Onset Date Resolution Status History of colon polyps acut e [facility] Work Phone: Evaluation note* Diagnosis Primary osteoarthritis of left knee- Primary Primary localized osteoarthrosis, lower leg Primary osteoarthritis of both knees Primary localized osteoarthrosis, lower leg Effusion, left knee Primary osteoarthritis of left knee Primary localized osteoarthrosis, lower leg [facility] Primary osteoarthritis of left knee Primary localized osteoarthrosis, lower leg [facility] COVID-19- Primary Pneumonia due to infectious organism, unspecified laterality, unspecified part of lung documented in this encounter [facility] Work Phone: Evaluation note* Diagnosis Primary osteoarthritis of left knee- Primary Primary localized osteoarthrosis, lower leg Primary osteoarthritis of left knee Primary localized osteoarthrosis, lower leg [facility] Primary osteoarthritis of left knee Primary localized osteoarthrosis, lower leg documented in this encounter [facility] Additional Instructions Take the prednisone [...] high fever worsening pain [facility] Discharge instructions Additional Instructions [...] if there are any significant problems or concerns.[facility] Work Phone: Reason for referral (narrative)* Diagnostic Procedure Only (Routine) - Closed Specialty Diagnoses / Procedures Referred By Zaina dodson Referred To Contact XR IMAGING Diagnoses Sarcoidosis Polyarthralgia Abnormal laboratory test Procedures XR ANKLE GENERAL 3V AP/LAT/OBL LEFT RADEX ANKLE COMPLETE MINIMUM 3 VIEWS Naa Bah PA-C [address] [place] [address] Xr Imaging Referral ID Status Reason Start Date Expiration Date V isits Requested Visits Authorized [id number] Closed Auto-Generate d Referral 07/19/2022 08/18/2023 1 1 * Diagnostic Procedure Only (Routine) - Closed Specialty Diagnoses / Procedures Referred By Zaina t Referred To Contact XR IMAGING Diagnoses Sarcoidosis Polyarthralgia Abnormal laboratory test Procedures XR ANKLE GENERAL 3V AP/LAT/OBL RIGHT RADEX ANKLE COMPLETE MINIMUM 3 VIEWS Naa Bah PA-C [address] [place] [address] Xr Imaging Referral ID Status Reason Start Date Expiration Date V isits Requested Visits Authorized [id number] Closed Auto-Generate d Referral 07/19/2022 08/18/2023 1 1 * Diagnostic Procedure Only (Routine) - Closed Specialty Diagnoses / Procedures Referred By Contac t Referred To Contact XR IMAGING Diagnoses Sarcoidosis Polyarthralgia Abnormal laboratory test Procedures XR FOOT GENERAL 3V AP/LAT/OBL BILATERAL RADEX FOOT COMPLETE MINIMUM 3 VIEWS Naa Bah PA-C [address] [place] [address] Xr Imaging Referral ID Status Reason Start Date Expiration Date V isits Requested Visits Authorized [id number] Closed Auto-Generate d Referral 07/19/2022 08/18/2023 1 1 * Diagnostic Procedure Only (Routine) - Closed Specialty Diagnoses / Procedures Referred By Contac t Referred To Contact XR IMAGING Diagnoses Sarcoidosis Polyarthralgia Abnormal laboratory test Procedures XR WRIST GENERAL 3V PA/LAT/OBL BILATERAL RADEX WRIST COMPLETE MINIMUM 3 VIEWS Naa Bah PA-C [address] [place] [address] Xr Imaging Referral ID Status Reason Start Date Expiration Date V isits Requested Visits Authorized [id number] Closed Auto-Generate d Referral 07/19/2022 08/18/2023 1 1 * Diagnostic Procedure Only (Routine) - Closed Specialty Diagnoses / Procedures Referred By Contac t Referred To Contact XR IMAGING Diagnoses Sarcoidosis Polyarthralgia Abnormal laboratory test Procedures XR HAND GENERAL 3V PA/LAT/OBL BILATERAL RADEX HAND MINIMUM 3 VIEWS Naa Bah PA-C [address] [place] [address] Xr Imaging Referral ID Status Reason Start Date Expiration Date V isits Requested Visits Authorized [id number] Closed Auto-Generate d Referral 07/19/2022 08/18/2023 1 1 * Diagnostic Procedure Only (Routine) - Closed Specialty Diagnoses / Procedures Referred By Contac t Referred To Contact XR IMAGING Diagnoses Sarcoidosis Polyarthralgia Abnormal laboratory test Procedures XR SHOULDER [id number] AP/TRUE AP RIGHT RADEX SHOULDER COMPLETE MINIMUM 2 VIEWS Naa Bah PA-C [address] [place] [address] Xr Imaging Referral ID Status Reason Start Date Expiration Date V isits Requested Visits Authorized [id number] Closed Auto-Generate d Referral 07/19/2022 08/18/2023 1 1 * Diagnostic Procedure Only (Routine) - Closed Specialty Diagnoses / Procedures Referred By Contac t Referred To Contact XR IMAGING Diagnoses Sarcoidosis Polyarthralgia Abnormal laboratory test Procedures XR SHOULDER LIMITED 2V AP/TRUE AP LEFT RADEX SHOULDER COMPLETE MINIMUM 2 VIEWS Naa Bah PA-C [address] [place] [address] Xr Imaging Referral ID Status Reason Start Date Expiration Date V isits Requested Visits Authorized [id number] Closed Auto-Generate d Referral 07/19/2022 08/18/2023 1 1 * Diagnostic Procedure Only (Routine) - Closed Specialty Diagnoses / Procedures Referred By Contac t Referred To Contact XR IMAGING Diagnoses Sarcoidosis Polyarthralgia Abnormal laboratory test Procedures XR SACROILIAC JOINTS 2V AP PELVIS/FERGUESON RADIOLOGIC EXAMINATION SACROILIAC JNTS <3 VIEWS Naa Bah PA-C [address] [place] [address] Xr Imaging Referral ID Status Reason Start Date Expiration Date V isits Requested Visits Authorized [id number] Closed Auto-Generate d Referral 07/19/2022 08/18/2023 1 1 * Diagnostic Procedure Only (Routine) - Closed Specialty Diagnoses / Procedures Referred By Contac t Referred To Contact XR IMAGING Diagnoses Sarcoidosis Polyarthralgia Abnormal laboratory test Procedures XR LUMBAR GENERAL 3V AP/LAT/L5-S1 RADEX SPINE LUMBOSACRAL 2/3 VIEWS Naa Bah PA-C [address] [place] [address] Xr Imaging Referral ID Status Reason Start Date Expiration Date V isits Requested Visits Authorized [id number] Closed Auto-Generate d Referral 07/19/2022 08/18/2023 1 1 * Diagnostic Procedure Only (Routine) - Closed Specialty Diagnoses / Procedures Referred By Contac t Referred To Contact XR IMAGING Diagnoses Sarcoidosis Polyarthralgia Abnormal laboratory test Procedures XR CERV OTHER 4V AP/LAT/OBL RADEX SPINE CERVICAL 4 OR 5 VIEWS Naa Bah PA-C [address] [place] [address] Xr Imaging Referral ID Status Reason Start Date Expiration Date V isits Requested Visits Authorized [id number] Closed Auto-Generate d Referral 07/19/2022 08/18/2023 1 1 [facility] for referral (narrative)* Diagnostic Procedure Only (Routine) - Closed Specialty Diagnoses / Procedures Referred By Contac t Referred To Contact XR IMAGING Diagnoses Primary osteoarthritis of left knee Procedures XR KNEE GENERAL 4V AP BOTH/PA BOTH/LAT/MERC LEFT RADIOLOGIC EXAM KNEE COMPLETE 4/MORE VIEWS Pam Wang PA-C [address] [place] [address] [place] [address] Referral ID Status Reason Start Date Expiration Date V isits Requested Visits Authorized [id number] Closed Auto-Generate d Referral 05/06/2024 06/05/2025 1 1 [facility] for visit Narrative* Diagnostic Procedure Only (Routine) - Closed Specialty Diagnoses / Procedures Referred By Contac t Referred To Contact XR IMAGING Diagnoses Primary osteoarthritis of left knee Procedures XR KNEE GENERAL 4V AP BOTH/PA BOTH/LAT/MERC LEFT RADIOLOGIC EXAM KNEE COMPLETE 4/MORE VIEWS Pam Wang PA-C [address] [place] [address] [place] [address] Referral ID Status Reason Start Date Expiration Date V isits Requested Visits Authorized [id number] Closed Auto-Generate d Referral 05/06/2024 06/05/2025 1 1 [facility] Diagnostic Procedure Only (Routine) - Closed Specialty Diagnoses / Procedures Referred By Contac t Referred To Contact XR IMAGING Diagnoses Primary osteoarthritis of left knee Procedures XR KNEE SPECIFY 1V LEFT RADIOLOGIC EXAMINATION KNEE 1/2 VIEWS Pam Wang PA-C [address] [place] [address] Phone: tel: fax: [place] [address] Referral ID Status Reason Start Date Expiration Date V isits Requested Visits Authorized [id number] Closed Auto-Generate d Referral 08/09/2024 09/08/2025 1 1 [facility] Summary Purpose Family History No Family [...] Specialty Diagnoses / Procedures Referred By Zaina t Referred To Contact [facility] Diagnoses Primary osteoarthritis of left knee Procedures CONSULT TO PHYSICAL THERAPY PHYSICAL THERAPY EVALUATION HIGH COMPLEX 45 MINS Pam Wang PA-C [address] [place] [address] [facility] [address] [address] Referral ID Status Reason Start Date Expiration Date Visits Requested Visits Authorized [id number] Authorized Auto-Generat ed Referral 06/30/2023 06/29/2024 30 30 Specialty Diagnoses / Procedures Referred By Zaina t Referred To Contact Diagnoses Primary osteoarthritis of left knee Procedures OA [employer] - [employer] - [id number] Pam Wang PA-C [address] [place] [address] Referral ID Status Reason Start Date Expiration Date Visits Requested Visits Authorized [id number] New Request PCP Requested Referral 08/08/2024 1 1 Specialty Diagnoses / Procedures Referred By Contac t Referred To Contact XR IMAGING Diagnoses Primary osteoarthritis of left knee Procedures XR KNEE GENERAL 4V AP BOTH/PA BOTH/LAT/MERC LEFT RADIOLOGIC EXAM KNEE COMPLETE 4/MORE VIEWS Pam Wang PA-C [address] [place] [address] [place] [address] Referral ID Status Reason Start Date Expiration Date V isits Requested Visits Authorized [id number] Closed Auto-Generate d Referral 05/06/2024 06/05/2025 1 1 Specialty Diagnoses / Procedures Referred By Contac t Referred To Contact Diagnoses Pneumonia due to infectious organism, unspecified laterality, unspecified part of lung Harry Welch MD [address] [facility] [place] [address] Referral ID Status Reason Start Date Expiration Date V isits Requested Visits Authorized [id number] Pending Review 1 1 Additional Source Comments INFORMATION SOURCE (unrecogn ized section and content) DATE CREATED AUTHOR 12/23/2017 [facility] DATE CREATED AUTHOR AUTHOR'S ORGANIZ ATION 06/16/2021 [facility] DATE CREATED AUTHOR AUTHOR'S ORGANIZ ATION 09/19/2021 [facility] DATE CREATED AUTHOR AUTHOR'S ORGANIZ ATION 01/31/2024 [facility] DATE CREATED AUTHOR AUTHOR'S ORGANIZ ATION 03/21/2024 [facility] DATE CREATED AUTHOR AUTHOR'S ORGANIZ ATION 03/26/2024 [facility] [place] DATE CREATED AUTHOR AUTHOR'S ORGANIZ ATION 03/28/2024 [facility] DATE CREATED AUTHOR AUTHOR'S ORGANIZ ATION 06/30/2024 [facility] DATE CREATED AUTHOR AUTHOR'S ORGANIZ ATION 08/15/2024 [facility] Care Teams (unrecognized sec tion and content) Team Status: Inactive Member Role Status Dates Ruthy Figueroa , SALES OPERATIONS COORDINATOR-BC Emergency Provider Active Services Family [facility] Primary Care Provider Active Team Status: Inactive Member Role Status Dates Kassandra Klein NP-C Attending Provider Active Services [facility] Primary Care Provider Ac tive Team Status: Inactive Member Role Status Dates Dwight Irwin DO Emergency Provider Active Services [facility] Primary Care Provider Active Team Status: Active Member Role Status Dates Services [facility] Primary Care Provider Active Team Status: Inactive Member Role Status Dates Services Family [facility] Primary Care Provider Active Kassandra Klein NP-C Attending Provider Active Freight Sorter Relationship Specialty Start Date End Date Chintan Jackman [address] [facility] [place] [address] PCP - General Family Medicine 05/18/13 Kassandra Klein [address] [place] [address] Referring [facility] 05/17/19 Freight Sorter Relationship Specialty Start Date End Date Chintan Jackman [address] [place] [address] PCP - General Family Medicine 05/18/13 Kassandra Klein [address] [place] [address] Referring [facility] 05/17/19 Team Status: Inactive Member Role Status Dates Kassandra Klein , BRIDAL SALES CONSULTANT-C Attending Provider Active Team Status: Inactive Member Role Status Dates [facility] Primary Care Provider Active Huey Bliss MD Attending Provider Active Team Status: Active Member Role Status Dates [facility] Primary Care Provider Ac tive Team Status: Inactive Member Role Status Dates [facility] Primary Care Provider Ac tive Start: September 11, 2023 End: September 11, 2023 Kassandra Klein , BRIDAL SALES CONSULTANT-C Attending Provider Active Start: September 11, 2023 End: September 11, 2023 Team Status: Inactive Member Role Status Dates Kassandra Klein , BRIDAL SALES CONSULTANT-C Attending Provider Active Start: December 16, 2023 End: December 16, 2023 Team Status: Active Member Role Status Dates Kassandra Klein , BRIDAL SALES CONSULTANT-C Primary Care Provider Active Team Status: Inactive Member Role Status Dates Kassandra Klein , BRIDAL SALES CONSULTANT-C Attending Provider Active Start: December 16, 2023 End: December 16, 2023 [facility] Primary Care Provider Ac tive Start: December 16, 2023 End: December 16, 2023 Team Status: Inactive Member Role Status Dates Anders Umana PA-C Emergency Provider Active Start: December 22, 2023 End: December 22, 2023 Kassandra Klein , BRIDAL SALES CONSULTANT-C Primary Care Provider Active Start: December 22, 2023 End: December 22, 2023 Team Status: Inactive Member Role Status Dates Kassandra Klein , BRIDAL SALES CONSULTANT-C Primary Care Provider Active Start: January 29, 2024 End: January 29, 2024 Rishi Abel Jr, MD Emergency Provider Active Start: January 29, 2024 End: January 29, 2024 Freight Sorter Relationship Specialty Start Date End Date Kassandra Klein NP [address] [place] [address] PCP - General Family Medicine 05/10/24 Kassandra lKein NP [address] [place] [address] Referring Family Medicine 05/17/19 Freight Sorter Relationship Specialty Start Date End Date Kassandra Klein NP [address] [place] [address] PCP - General Family Medicine 05/10/24 Kassandra Klein NP [address] [place] [address] Referring Family Medicine 05/17/19 Freight Sorter Relationship Specialty Start Date End Date Kassandra Klein NP [address] [place] [address] PCP - General Family Medicine 05/10/24 Kassandra Klein NP [address] [place] [address] Referring Family Medicine 05/17/19 Freight Sorter Relationship Specialty Start Date End Date Generic Provider, No Assigned PcpMD [place] [address] PCP - General Mica Spreader 03/23/24 Freight Sorter Relationship Specialty Start Date End Date Kassandra Klien NP [address] [place] [address] PCP - General Family Medicine 05/10/24 Kassandra Klein NP [address] [place] [address] Referring Family Medicine 05/17/19 Freight Sorter Relationship Specialty Start Date End Date Kassandra Klein NP [address] [place] [address] PCP - General Family Medicine 05/10/24 Kassandra Klein NP [address] [place] [address] Referring Family Medicine 05/17/19 Freight Sorter Relationship Specialty Start Date End Date Kassandra Klein NP [address] [place] [address] PCP - General Family Medicine 05/10/24 Kassandra Klein NP [address] [place] [address] Referring Family Medicine 05/17/19 Goals (unrecognized section and content) Goals may [...] or prosecute any alcohol or drug abuse patient.[facility] the event this information is protected by the Federal Confidentiality of Alcohol and Drug Abuse Patient Records regulations: The Federal rules restrict any use of the information to criminally investigate or prosecute any alcohol or drug abuse patient.[facility] the event this information is protected by the Federal Confidentiality of Alcohol and Drug Abuse Patient Records regulations: The Federal rules restrict any use of the information to criminally investigate or prosecute any alcohol or drug abuse patient.[facility] the event this information is protected by the Federal Confidentiality of Alcohol and Drug Abuse Patient Records regulations: The Federal rules restrict any use of the information to criminally investigate or prosecute any alcohol or drug abuse patient.[facility] the event this information is protected by the Federal Confidentiality of Alcohol and Drug Abuse Patient Records regulations: The Federal rules restrict any use of the information to criminally investigate or prosecute any alcohol or drug abuse patient.[facility] the event this information is protected by the Federal Confidentiality of Alcohol and Drug Abuse Patient Records regulations: The Federal rules restrict any use of the information to criminally investigate or prosecute any alcohol or drug abuse patient.[facility] the event this information is protected by the Federal Confidentiality of Alcohol and Drug Abuse Patient Records regulations: The Federal rules restrict any use of the information to criminally investigate or prosecute any alcohol or drug abuse patient.[facility] the event this information is protected by the Federal Confidentiality of Alcohol and Drug Abuse Patient Records regulations: The Federal rules restrict any use of the information to criminally investigate or prosecute any alcohol or drug abuse patient.[facility] Reason for Visit (unrecogniz ed section and content) Reason Comments Joint Pain Reason Comments Radiology XR Reason Comments New Knee Pain Reason Comments Wheezing Pt sts she hears whe ezing when she breaths, Pt sts she has a history of COPD and is requesting a treatment. Pt also sts she thinks she is dehydrated. Pt does do albuterol treatments at home. Reason Comments Established Patient Knee Pain Scheduled Active and Recently Administ ered Medications [...] 1 dose 2207 (Given - Provider: Anil Ferrari, JOSE FRANCISCO) iohexol (OMNIPaque) 350 mg iodine/mL solution 75 [...] On Fri03/23/24 at 1755, For 1 dose 1839 (New Bag - Provider: Lexi Mcbride RN)1939 (Stopped - Provider: Vicky Zurita RN) FOR [...] BE BASED ON THE PRIMARY CLINICAL RECORDS. [facility]. provides no warranty or guarantee of the accuracy or completeness of information in this document.
[2024-08-15 12:33] VITALS: BP 170/89; PULSE 87; TEMP 36.6; O2SAT 100; BMI 34.1
--- NOTE | 2024-08-15 12:48 | XR_ITS ---
The [address] [address] Patient Name: LONDON BEY MRN: [id number] date: 1965 Sex: F Assigned Patient Location: ER Current Patient Location: ED.MAIN Accession/Order Number: [id number] Exam Date: 08/15/2024 13:38 Report Date: 08/15/2024 14:19 At the request of: KRAOLYN SAMANO Procedure: XR knee LT 3V HISTORY: Left knee pain and swelling for the past 2 days after a fall. XR knee LT 3V: 08/15/2024 1:38 PM EST COMPARISON: None. FINDINGS: There is a moderate-sized joint effusion. No fracture or dislocation is seen. There appear to be at least moderate to severe degenerative changes of the medial and patellofemoral compartments. There is a quadriceps enthesophyte. XR/XR knee LT 3V IMPRESSION: 1. No fracture or dislocation is seen. 2. There appears to be at least moderate to severe osteoarthritis of the medial and patellofemoral compartments. Please note that standing AP and PA flexion views of the knee could be obtained for a more definitive evaluation of the extent of medial joint space narrowing if clinically indicated. 3. Moderate-sized joint effusion. Electronically authenticated by: MARIA TERESA COBB Date: 08/15/2024 14:19
--- NOTE | 2024-08-15 12:49 | ED_ITS ---
HPI HPI - Extremity Injury (Lower) General Chief Complaint: Extremity Injury, Lower Stated Complaint: LOWER EXTREMITY PAIN Time Seen by Provider: 08/15/24 12:44 Source: patient History of Present Illness HPI Narrative: 59-year-old female presents for pain of the left knee. Yesterday she fell on it and hit the knee. She has been having issues with this knee and has degenerative changes and is supposed to have a knee replacement in September. It hurts more to walk on it. She points mostly to the lateral aspect of the knee indicate the area of pain. It is moderate to severe. Related Data Home Medications ?Medication ?Instructions ?Recorded ?Confirmed albuterol sulfate 90 mcg/actuation 2 puff inhalation Q4H PRN 07/23/24 08/15/24 aerosol inhaler (Ventolin HFA) shortness of breath or wheezing amitriptyline 50 mg tablet 50 mg PO DAILY 07/23/24 08/15/24 atenolol 50 mg tablet 50 mg PO Q24H 07/23/24 08/15/24 clonidine HCl 0.1 mg tablet 0.1 mg PO BID 07/23/24 08/15/24 cyclobenzaprine 10 mg tablet 10 mg PO Q12H PRN muscle pain 07/23/24 08/15/24 doxepin 25 mg capsule 25 mg PO DAILY 07/23/24 08/15/24 ergocalciferol (vitamin D2) 1,250 1,250 mcg PO DAILY 07/23/24 08/15/24 mcg (50,000 unit) capsule ferrous sulfate 325 mg (65 mg 325 mg PO DAILY 07/23/24 08/15/24 iron) tablet gabapentin 300 mg capsule 300 mg PO TID 07/23/24 08/15/24 hydroxyzine pamoate 50 mg capsule 50 mg PO BEDTIME 07/23/24 08/15/24 insulin glargine 100 unit/mL (3 10 unit subcut BEDTIME 07/23/24 08/15/24 mL) subcutaneous pen (Lantus Solostar U-100 Insulin) insulin lispro 100 unit/mL 1 sliding scale dose subcut BID 07/23/24 08/15/24 subcutaneous pen (Humalog KwikPen (U-100) Insulin) losartan 100 mg tablet 100 mg PO DAILY 07/23/24 08/15/24 pantoprazole 20 mg tablet,delayed 20 mg PO DAILY 07/23/24 08/15/24 release Previous Rx's ?Medication ?Instructions ?Recorded acetaminophen 650 mg 650 mg PO Q8H PRN pain #20 tabs 07/29/24 tablet,extended release (Tylenol 8 Hour) acetaminophen 300 mg-codeine 30 mg 1 tab PO Q6H PRN pain 5 days #20 08/15/24 tablet tabs Allergies Allergy/AdvReac Type Severity Reaction Status Date / Time NSAIDS (Non-Steroidal Allergy Severe Hives Verified 08/15/24 12:33 Anti-Inflamma tramadol Allergy Hives Verified 08/15/24 12:33 Opioid HPI Opioid Management Most Recent Pain and Opioid Data: No Data to Display Review of Systems ROS Narrative A ten point review of systems is negative except as noted above. PFSH PFSH Social History Little interest or pleasure in doing things: not at all Feeling down, depressed, or hopeless: not at all Exam Narrative Exam Narrative: Nurses note and vital signs reviewed and patient is not hypoxic. General: The patient appears in no apparent distress. Skin: Warm, dry, no pallor noted. There is no rash noted. Head: Normocephalic, atraumatic Eye: Normal conjunctiva, no drainage Ears, Nose, Mouth, and Throat: oral mucosa is moist. Nares patent. Cardiovascular: Regular Rate and Rhythm Respiratory: Patient is in no distress, no accessory muscle use, lungs are clear to auscultation, no wheezing, rales or rhonchi Back: non-tender GI: Soft and nontender Musculoskeletal: The left knee has no abrasions or erythema. It is not warm to touch. The knee joint is stable. Neurological: A&O, normal speech Psychiatric: Cooperative Constitutional Vital Signs, click to edit/add: Last Vital Signs Temp 98 F 08/15/24 12:33 Pulse 87 08/15/24 12:33 Resp 14 08/15/24 12:33 BP 170/89 H 08/15/24 12:33 Pulse Ox 100 08/15/24 12:33 O2 Del Method Room Air 08/15/24 12:33 Course Vital Signs Vital signs: Vital Signs Temperature 98 F 08/15/24 12:33 Pulse Rate 87 08/15/24 12:33 Respiratory Rate 14 08/15/24 12:33 Blood Pressure 170/89 H 08/15/24 12:33 Pulse Oximetry 100 02/16/25 12:33 Oxygen Delivery Method Room Air 08/15/24 12:33 Temperature 98 F 08/15/24 12:33 Pulse Rate 87 08/15/24 12:33 Respiratory Rate 14 08/15/24 12:33 Blood Pressure 170/89 H 08/15/24 12:33 Pulse Oximetry 100 08/15/24 12:33 Oxygen Delivery Method Room Air 08/15/24 12:33 MDM - Extremity Injury (Lower) MDM Narrative Medical decision making narrative: X-ray on my interpretation shows degenerative changes but no acute findings. She is due to have a knee replacement in September. Andrei wrap applied, application checked by me and found to be appropriate, she is neurovascularly intact. She was given a Tylenol 3 here and prescribed same. She will follow-up with her established orthopedist. Treatment diagnosis and follow-up were discussed with the patient. Differential Diagnosis Differential diagnosis: Likely other (Fracture, sprain of knee) Imaging Data Left knee x-ray: My impression: Degenerative changes, no acute finding Discharge Plan Discharge Chief Complaint: Extremity Injury, Lower Clinical Impression: Left knee sprain Patient Disposition: Home, Self-Care Time of Disposition Decision: 13:51 Condition: Good Mode of Transportation: Private Vehicle Prescriptions / Home Meds: New acetaminophen-codeine 300-30 mg tablet 1 tab PO Q6H PRN (Reason: pain) 5 Days Qty: 20 0RF No Action acetaminophen [Tylenol 8 Hour] 650 mg tablet extended release 650 mg PO Q8H PRN (Reason: pain) Qty: 20 0RF albuterol sulfate [Ventolin HFA] 90 mcg/actuation HFA aerosol inhaler 2 puff INHALATION Q4H PRN (Reason: shortness of breath or wheezing) atenolol 50 mg tablet 50 mg PO Q24H amitriptyline 50 mg tablet 50 mg PO DAILY clonidine HCl 0.1 mg tablet 0.1 mg PO BID cyclobenzaprine 10 mg tablet 10 mg PO Q12H PRN (Reason: muscle pain) doxepin 25 mg capsule 25 mg PO DAILY ergocalciferol (vitamin D2) 1,250 mcg (50,000 unit) capsule 1,250 mcg PO DAILY ferrous sulfate 325 mg (65 mg iron) tablet 325 mg PO DAILY gabapentin 300 mg capsule 300 mg PO TID hydroxyzine pamoate 50 mg capsule 50 mg PO BEDTIME insulin glargine [Lantus Solostar U-100 Insulin] 100 unit/mL (3 mL) insulin pen 10 unit SUBCUT BEDTIME insulin lispro [Humalog KwikPen Insulin] 100 unit/mL insulin pen 1 sliding scale dose SUBCUT BID losartan 100 mg tablet 100 mg PO DAILY pantoprazole 20 mg tablet,delayed release (DR/EC) 20 mg PO DAILY Print Language: [place]an Instructions: Knee Sprain (ED), How to Use an Elastic Bandage (ED) Referrals: [facility] [Primary Care Provider] - 1 week
[2024-08-15] MEDS: ACETAMINOPHEN 300 MG/ 30 MG CODEINE TABLET 1 TAB PO (14:20)
== END 2024-08-15 14:24 | disposition home or self-care (01) ==
PROVIDERS: Emergency Provider Emergency Medicine
DX: S83.92XA Sprain of unspecified site of left knee, initial encounter (principal); W19.XXXA Unspecified fall, initial encounter
CPT/HCPCS: 73562; 99283

== ENCOUNTER 2024-09-22 11:57 | Emergency (ER) | payer MEDICAID, SELFPAY ==
[2024-09-22 12:04] VITALS: BP 184/109; PULSE 118; TEMP 36.4; O2SAT 100; BMI 34.3
--- NOTE | 2024-09-22 12:50 | ED_ITS ---
HPI HPI - General Adult General Chief complaint: Extremity Injury, Lower Stated complaint: LOWER EXTREMITY PAIN Time Seen by Provider: 09/22/24 11:59 Source: patient Mode of arrival: Wheelchair Limitations: no limitations History of Present Illness HPI narrative: Patient presents to ED complaining of left knee pain. She said she fell yesterday onto her knee and hip. She complains of pain in the left knee and left hip. Patient states she has chronic left knee pain and she is supposed to get a surgery on her left knee. She said she was supposed to get it on October 05 and when she met with anesthesia she said they told her that the doctor retired. She now has no surgery scheduled and she is frustrated. She also had a fall yesterday that aggravated her knee pain. She said her pain is radiating up into her hip and groin area. She denies hitting her head or any other extremity pain. No loss of consciousness no neck pain she is alert and oriented answering questions appropriately Related Data Home Medications ?Medication ?Instructions ?Recorded ?Confirmed albuterol sulfate 90 mcg/actuation 2 puff inhalation Q4H PRN 07/23/24 08/15/24 aerosol inhaler (Ventolin HFA) shortness of breath or wheezing amitriptyline 50 mg tablet 50 mg PO DAILY 07/23/24 08/15/24 atenolol 50 mg tablet 50 mg PO Q24H 07/23/24 08/15/24 clonidine HCl 0.1 mg tablet 0.1 mg PO BID 07/23/24 08/15/24 cyclobenzaprine 10 mg tablet 10 mg PO Q12H PRN muscle pain 07/23/24 08/15/24 doxepin 25 mg capsule 25 mg PO DAILY 07/23/24 08/15/24 ergocalciferol (vitamin D2) 1,250 1,250 mcg PO DAILY 07/23/24 08/15/24 mcg (50,000 unit) capsule ferrous sulfate 325 mg (65 mg 325 mg PO DAILY 07/23/24 08/15/24 iron) tablet gabapentin 300 mg capsule 300 mg PO TID 07/23/24 08/15/24 hydroxyzine pamoate 50 mg capsule 50 mg PO BEDTIME 07/23/24 08/15/24 insulin glargine 100 unit/mL (3 10 unit subcut BEDTIME 07/23/24 08/15/24 mL) subcutaneous pen (Lantus Solostar U-100 Insulin) insulin lispro 100 unit/mL 1 sliding scale dose subcut BID 07/23/24 08/15/24 subcutaneous pen (Humalog KwikPen (U-100) Insulin) losartan 100 mg tablet 100 mg PO DAILY 07/23/24 08/15/24 pantoprazole 20 mg tablet,delayed 20 mg PO DAILY 07/23/24 08/15/24 release Previous Rx's ?Medication ?Instructions ?Recorded acetaminophen 650 mg 650 mg PO Q8H PRN pain #20 tabs 07/29/24 tablet,extended release (Tylenol 8 Hour) acetaminophen 300 mg-codeine 30 mg 1 tab PO Q6H PRN pain 5 days #20 08/15/24 tablet tabs hydrocodone 5 mg-acetaminophen 325 1 tab PO Q6H PRN pain #14 tabs 09/22/24 mg tablet Allergies Allergy/AdvReac Type Severity Reaction Status Date / Time NSAIDS (Non-Steroidal Allergy Severe Hives Verified 08/15/24 12:33 Anti-Inflamma tramadol Allergy Hives Verified 08/15/24 12:33 Opioid HPI Opioid Management Most Recent Opioid Data: Last Pain Scale 10 09/22/24 13:03 09/22/24 Last MAR Pain Assessment 09/22/24 13:03 Review of Systems ROS Status of ROS 10 or more systems reviewed and unremark able except as noted in history and below PFSH PFSH Social History Little interest or pleasure in doing things: not at all Feeling down, depressed, or hopeless: not at all Exam Narrative Exam Narrative: Time Seen: [] Vital Signs: [Per nurse's notes.] General: [Alert] Skin: [Warm, dry, no rash.] Head: [Normocephalic, atraumatic.] Neck: [Supple, trachea midline.] Eye: [Pupils are equal, round and reactive to light, extraocular movements are intact, normal conjunctiva.] Ears, nose, mouth and throat: oral mucosa moist. Cardiovascular: [Regular rate and rhythm, no murmur.] Respiratory: [Lungs are clear to auscultation, respirations are non-labored, breath sounds are equal.] Chest wall: [No tenderness, no deformity.] Gastrointestinal: [Soft, nontender, non distended, normal bowel sounds.] MSK: 5 out of 5 muscle strength x 4 extremities no calf pain or edema. Patient has tenderness diffusely to the left knee. Pain in the left hip and groin area as well. Normal distal pulses and sensation. Psychiatric: [Cooperative, appropriate mood & affect.] Neurological: [Alert and oriented to person, place, time, and situation, no focal neurological deficit observed.] Constitutional Vital Signs, click to edit/add: Last Vital Signs Temp 97.5 F L 09/22/24 12:04 Pulse 118 H 09/22/24 12:04 Resp 18 09/22/24 12:04 BP 157/101 H 09/22/24 13:37 Pulse Ox 100 09/22/24 12:04 O2 Del Method Room Air 09/22/24 12:04 Course Vital Signs Vital signs: Vital Signs Temperature 97.5 F L 09/22/24 12:04 Pulse Rate 118 H 09/22/24 12:04 Respiratory Rate 18 09/22/24 12:04 Blood Pressure 184/109 H 09/22/24 12:04 Pulse Oximetry 100 09/22/24 12:04 Oxygen Delivery Method Room Air 09/22/24 12:04 Temperature 97.5 F L 09/22/24 12:04 Pulse Rate 118 H 09/22/24 12:04 Respiratory Rate 18 09/22/24 12:04 Blood Pressure 157/101 H 09/22/24 13:37 Pulse Oximetry 100 09/22/24 12:04 Oxygen Delivery Method Room Air 09/22/24 12:04 Medical Decision Making MDM Narrative Medical decision making narrative: Patient's x-rays are negative for acute fracture. She does have a joint effusion on the knee x-ray. Patient will be given a follow-up appointment with Dr. Lockhart at 1130 on Friday. Return to ED if worsening symptoms. Patient requested an Andrei wrap which was applied prior to discharge. Patient requested pain medication which was sent to her pharmacy. Return to ED if worsening symptoms otherwise follow-up as scheduled on Friday. Patient is comfortable with care plan for home. Differential Diagnosis Differential Diagnosis: Fracture sprain strain Imaging Data Chest x-ray: Attestation: I have reviewed the pertinent imaging results. Discharge Plan Discharge Chief Complaint: Extremity Injury, Lower Clinical Impression: Knee sprain Patient Disposition: Home, Self-Care Time of Disposition Decision: 15:07 Condition: Good Mode of Transportation: Private Vehicle Prescriptions / Home Meds: New hydrocodone-acetaminophen 5-325 mg tablet 1 tab PO Q6H PRN (Reason: pain) Qty: 14 0RF No Action acetaminophen [Tylenol 8 Hour] 650 mg tablet extended release 650 mg PO Q8H PRN (Reason: pain) Qty: 20 0RF albuterol sulfate [Ventolin HFA] 90 mcg/actuation HFA aerosol inhaler 2 puff INHALATION Q4H PRN (Reason: shortness of breath or wheezing) atenolol 50 mg tablet 50 mg PO Q24H amitriptyline 50 mg tablet 50 mg PO DAILY clonidine HCl 0.1 mg tablet 0.1 mg PO BID cyclobenzaprine 10 mg tablet 10 mg PO Q12H PRN (Reason: muscle pain) doxepin 25 mg capsule 25 mg PO DAILY ergocalciferol (vitamin D2) 1,250 mcg (50,000 unit) capsule 1,250 mcg PO DAILY ferrous sulfate 325 mg (65 mg iron) tablet 325 mg PO DAILY gabapentin 300 mg capsule 300 mg PO TID hydroxyzine pamoate 50 mg capsule 50 mg PO BEDTIME insulin glargine [Lantus Solostar U-100 Insulin] 100 unit/mL (3 mL) insulin pen 10 unit SUBCUT BEDTIME insulin lispro [Humalog KwikPen Insulin] 100 unit/mL insulin pen 1 sliding scale dose SUBCUT BID losartan 100 mg tablet 100 mg PO DAILY pantoprazole 20 mg tablet,delayed release (DR/EC) 20 mg PO DAILY acetaminophen-codeine 300-30 mg tablet 1 tab PO Q6H PRN (Reason: pain) 5 Days Qty: 20 0RF Print Language: Congolese Instructions: Knee Sprain (ED) Referrals: [facility] [Primary Care Provider] - 1 week Aravind Lockhart MD [Physician] - 09/27/24 11:30 am Discharge Date/Time: 09/22/24 15:41
[2024-09-22] MEDS: HYDROMORPHONE HCL 1 MG/ML CARTRIDGE IM (13:03)
[2024-09-22 13:37] VITALS: BP 157/101
== END 2024-09-22 15:41 | disposition home or self-care (01) ==
PROVIDERS: Emergency Provider Emergency Medicine
DX: S83.92XA Sprain of unspecified site of left knee, initial encounter (principal); M25.552 Pain in left hip; W19.XXXA Unspecified fall, initial encounter
CPT/HCPCS: 73502; 73562; 96372; 99285; J1171

== ENCOUNTER 2024-11-08 12:13 | Outpatient (OUT) | payer MEDICAID, SELFPAY | END 2024-11-08 12:14 | disposition home or self-care (01) | LOC: RAD 12:13 | PROVIDERS: Visit Provider Nurse Practitioner Adult Health | DX: Z78.0 Asymptomatic menopausal state (principal) | CPT/HCPCS: 77080 ==